=== PATIENT | male | born 1960 | race American Indian/Alaskan Native ===

== ENCOUNTER 2017-01-17 00:50 | Emergency (ER) | payer OTHER ==
[2017-01-17] MEDS ORDERED: TORADOL IM ONE (07:29)
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
[2017-01-17 08:48] VITALS: BP 168/112
== END 2017-01-17 08:51 | disposition home or self-care (01) ==
LOC: ED 00:50
DX: S16.1XXA Strain of muscle, fascia and tendon at neck level, initial encounter (principal); R51 Headache; Y09 Assault by unspecified means; Y93.9 Activity, unspecified; Y99.9 Unspecified external cause status; Y92.481 Parking lot as the place of occurrence of the external cause
CPT/HCPCS: 71020; 96372; 99283; J1885

== ENCOUNTER 2021-09-09 11:07 | Inpatient (IN) | payer SELFPAY ==
--- NOTE | 2021-09-09 12:27 | XRay Report ---
CHEST 2 VIEWS INDICATION: sob. Excessive fatigue, chest pain and nausea COMPARISON: none FINDINGS: Support devices: None. Heart: Within normal limits. Lungs/pleura: No acute air space or interstitial disease. No pleural abnormality or pneumothorax. Additional findings: None. IMPRESSION: No acute findings. Signer Name: Reg Godoy Jr, MD Signed: 09/09/2021 12:23 PM Workstation Name: [id number]
[2021-09-09] MEDS ORDERED: IPRATROPIUM 0.02% NEBU 2.5 ML IH ONE (18:43)
[2021-09-09] MEDS ORDERED: ALBUTEROL 2.5 MG/3 ML NEBU IH ONE ×2 (18:43→20:39)
[2021-09-09] MEDS ORDERED: SODIUM CHLORIDE 0.9% 1000 ML 1,000 ML IV ONE ×2 (18:43→20:44)
[2021-09-09 19:44] LABS: Basophils % (Auto) 0.2 % (0.0-1.8); Eosinophils % (Auto) 0.2 % (0.0-4.3); Lymphocytes % (Auto) 11.6 % (13.4-35.0); Mean Corpuscular HGB Conc 32 % (32-34); Mean Corpuscular Volume 79 fl (84-94); Monocytes # (Auto) 0.6 K/mm3 (0.0-0.8); Monocytes % (Auto) 6.7 % (0.0-7.3); Platelet Count 321 K/mm3 (140-440); Red Blood Count 1.89 M/mm3 (3.65-5.03); Red Cell Distribution Width 14.1 % (13.2-15.2)
[2021-09-09 19:54] LABS: Hematocrit 14.9 % (35.5-45.6); Hemoglobin 4.8 gm/dl (11.8-15.2)
[2021-09-09] MEDS ORDERED: SODIUM CHLORIDE 0.9% 500 ML 500 ML IV ONE (19:54)
[2021-09-09 19:57] LABS: INR 1.2 (0.87-1.13)
[2021-09-09 20:09] LABS: Creatine Kinase MB 21.4 ng/mL (0.0-4.0)
[2021-09-09] MEDS ORDERED: cefTRIAXone/NS 1 GM/50 ML 1 GM/50 ML BAG IV ONE (20:14)
[2021-09-09] MEDS ORDERED: PANTOPRAZOLE 40 MG INJ IV ONE (20:14)
[2021-09-09 20:17] LABS: Albumin 4.2 g/dL (3.9-5); Calcium 6.2 mg/dL (8.4-10.2)
[2021-09-09] MEDS ORDERED: METOCLOPRAMIDE 10 MG/2 ML INJ IV PRN (20:24)
[2021-09-09 20:28] LABS: Chol/HDL Ratio 6.07 %
--- NOTE | 2021-09-09 20:29 | Emergency Department Report ---
ED Shortness of Breath HPI - General Chief Complaint: Dyspnea/Respdistress Stated Complaint: SOB/BLEEDING NOSE/VOMITNG Time Seen by Provider: 09/09/21 18:38 Source: patient Mode of arrival: Wheelchair Limitations: No Limitations - Related Data Previous Rx's Medication Instructions Recorded Last Taken Type Acetaminophen/Codeine [Tylenol #3] 1 tab PO Q6H PRN #7 tab 01/17/17 Unknown Rx Ibuprofen [Motrin] 600 mg PO Q8H PRN #15 tablet 01/17/17 Unknown Rx methOCARBAMOL [Robaxin TAB] 500 mg PO Q6H PRN #15 tablet 01/17/17 Unknown Rx Allergies Allergy/AdvReac Type Severity Reaction Status Date / Time No Known Allergies Allergy Unverified 01/17/17 01:04 ED Review of Systems ROS: Stated complaint: SOB/BLEEDING NOSE/VOMITNG Other details as noted in HPI ED Past Medical Hx - Social History Smoking Status: Never Smoker Substance Use Type: Alcohol - Medications Home Medications: Home Medications Medication Instructions Recorded Confirmed Last Taken Type Acetaminophen/Codeine [Tylenol #3] 1 tab PO Q6H PRN #7 tab 01/17/17 Unknown Rx Ibuprofen [Motrin] 600 mg PO Q8H PRN #15 tablet 01/17/17 Unknown Rx methOCARBAMOL [Robaxin TAB] 500 mg PO Q6H PRN #15 tablet 01/17/17 Unknown Rx ED Physical Exam - General Limitations: No Limitations General appearance: lethargic, in distress, cachectic - Head Head exam: Present: atraumatic, normocephalic - Eye Eye exam: Present: normal appearance - Neck Neck exam: Present: normal inspection - Respiratory Respiratory exam: Present: normal lung sounds bilaterally. Absent: respiratory distress - Cardiovascular Cardiovascular Exam: Present: regular rate, normal rhythm. Absent: systolic murmur, diastolic murmur, rubs, gallop - GI/Abdominal GI/Abdominal exam: Present: soft, normal bowel sounds - Rectal Rectal exam: Present: normal rectal tone, heme (+) stool, tenderness - Extremities Exam Extremities exam: Present: normal inspection - Back Exam Back exam: Present: normal inspection - Neurological Exam Neurological exam: Present: alert - Psychiatric Psychiatric exam: Present: normal affect - Skin Skin exam: Present: dry, normal color. Absent: rash ED Course Vital Signs 09/09/21 09/09/21 09/09/21 11:18 18:59 19:00 Temperature 97.7 F Pulse Rate 88 85 Pulse Rate [ Bilateral Throughout] Respiratory 20 16 Rate Respiratory Rate [Bilateral Throughout] Blood Pressure 168/44 Blood Pressure 171/57 [Right] O2 Sat by Pulse 100 56 L 100 Oximetry 09/09/21 09/09/21 09/09/21 19:15 19:16 19:31 Temperature Pulse Rate Pulse Rate [ 108 H Bilateral Throughout] Respiratory Rate Respiratory 26 H Rate [Bilateral Throughout] Blood Pressure 168/44 156/74 Blood Pressure [Right] O2 Sat by Pulse 98 69 L Oximetry 09/09/21 09/09/21 09/09/21 19:47 20:00 20:16 Temperature 97.8 F Pulse Rate 89 Pulse Rate [ Bilateral Throughout] Respiratory Rate Respiratory Rate [Bilateral Throughout] Blood Pressure 156/74 138/77 138/77 Blood Pressure [Right] O2 Sat by Pulse 82 L 75 L Oximetry 09/09/21 09/09/21 09/09/21 20:27 20:32 20:47 Temperature Pulse Rate Pulse Rate [ Bilateral Throughout] Respiratory 15 Rate Respiratory Rate [Bilateral Throughout] Blood Pressure 161/40 161/40 Blood Pressure [Right] O2 Sat by Pulse 91 44 L 88 Oximetry 09/09/21 09/09/21 09/09/21 21:03 21:20 21:29 Temperature Pulse Rate Pulse Rate [ 104 H Bilateral Throughout] Respiratory Rate Respiratory 24 Rate [Bilateral Throughout] Blood Pressure 161/40 161/40 161/40 Blood Pressure [Right] O2 Sat by Pulse 74 L 61 L 95 Oximetry 09/09/21 09/09/21 21:36 22:01 Temperature 97.7 F Pulse Rate 112 H 92 H Pulse Rate [ Bilateral Throughout] Respiratory 23 Rate Respiratory Rate [Bilateral Throughout] Blood Pressure Blood Pressure [Right] O2 Sat by Pulse 98 Oximetry ED Medical Decision Making - Lab Data Result diagrams: 09/10/21 Unknown 09/10/21 Unknown - EKG Data -: EKG Interpreted by Me EKG shows normal: sinus rhythm Rate: normal - Radiology Data Radiology results: report reviewed, image reviewed - Medical Decision Making work up showed : - Low H.H : heme positive PPI dripa nd bolus given , blood tranfusion GI consult - hyperkaemia : protocl applied , spoke with dr ellison will get dialysis stat - Sepsis L abx cultures aND FLUIDS - Elevated trop: normal ekg , suspect part of rhabdo , fluids given - Epistaxis : resolved with packing Critical Care Time: Yes Critical care time in (mins) excluding proc time.: 120 Critical care attestation.: If time is entered above; I have spent that time in minutes in the direct care of this critically ill patient, excluding procedure time. Critical Care Time: 120 ED Disposition Clinical Impression: Anemia, Sepsis, Elevated troponin, SOB (shortness of breath), Weakness, Melena, Epistaxis, Hyperkalemia, Acute renal failure (ARF), Acidosis Disposition: ADMITTED INPATIENT Is pt being admited?: Yes Condition: Critical
[2021-09-09] MEDS ORDERED: SODIUM CHLORIDE 0.9% 1000 ML 1,000 ML IV SCH (20:30)
[2021-09-09] MEDS ORDERED: CALCIUM CHLORIDE 1,000 MG in SODIUM CHLORIDE 0.9% 100 ML IV ONE (20:39)
[2021-09-09] MEDS ORDERED: INSULIN REGULAR, HUMAN 100 UNITS/1 ML IV ONE (20:44)
[2021-09-09] MEDS ORDERED: SODIUM POLYSTYRENE 15 GM/60 ML ORAL LIQD PO ONE (20:45)
[2021-09-09] MEDS ORDERED: DEXTROSE 50% IN WATER (25GM) 50 ML SYRINGE IV ONE (20:45)
[2021-09-09 21:04] LABS: C-Reactive Protein 1.5 mg/dL (0.00-1.30)
[2021-09-09 21:14] LABS: ABG Base Excess -21.5 mmol/L (-2.0-3.0); ABG HCO3 6.1 mmol/L (20.0-26.0); ABG Methemoglobin 0.5 % (0.0-1.5); ABG Oxygen Saturation 81.1 % (95.0-99.0); ABG PH 7.1 pH Units (7.350-7.450); ABG PO2 60.9 mm Hg (80.0-90.0)
[2021-09-09 21:25] LABS: Hepatitis B Surface Antigen Non-Reactive (Negative); Hepatitis C Virus Antibody Non-Reactive (NonReactive)
--- NOTE | 2021-09-09 21:38 | History and Physical Report ---
History of Present Illness Date of examination: 09/09/21 Date of admission: 09/09/21 20:24 Chief complaint: Shortness of breath Bleeding nose Vomiting History of present illness: 61 years old male with past medical history of chronic kidney disease was brought to the hospital because of progressive shortness of breath as stated with vomiting and bleeding from nose for 1 day. Patient is a very poor historian. In the emergency room patient is found to have hemoglobin of 4.8 and hematocrit 14.9 also patient is found to have potassium of 7.1, bicarb 4, anion gap 54, BUN to 38 and creatinine 48.4, lactic acid 2.80. ABG shows pH 7.100, PCO2 20+0, PO2 60.9, bicarb 6.1 Subsequently Case was discussed with on-call GI doctor as well as nephrology who will do the hemodialysis immediately. We also put the patient on ICU putting on bicarb drip, Protonix drip giving blood transfusion and consult critical care evaluation Past History Past Medical History: hypertension, renal failure Past Surgical History: No surgical history Social history: alcohol abuse Family history: hypertension Medications and Allergies Allergies Allergy/AdvReac Type Severity Reaction Status Date / Time No Known Allergies Allergy Unverified 01/17/17 01:04 Home Medications Medication Instructions Recorded Confirmed Last Taken Type Acetaminophen/Codeine [Tylenol #3] 1 tab PO Q6H PRN #7 tab 01/17/17 Unknown Rx Ibuprofen [Motrin] 600 mg PO Q8H PRN #15 tablet 01/17/17 Unknown Rx methOCARBAMOL [Robaxin TAB] 500 mg PO Q6H PRN #15 tablet 01/17/17 Unknown Rx Active Meds: Active Medications Acetaminophen (Acetaminophen 325 Mg Tab) 650 mg PO Q4H PRN PRN Reason: Pain MILD(1-3)/Fever >100.5/LOCO Pantoprazole Sodium 80 mg/ (Sodium Chloride) 100 mls @ 10 mls/hr IV DIRECT LENY Sodium Chloride (Nacl 0.9% 1000 Ml) 1,000 mls @ 42 mls/hr IV DIRECT LENY Sodium Chloride (Nacl 0.9% 1000 Ml) 1,000 mls @ 999 mls/hr IV BOLUS ONE Stop: 09/09/21 21:44 Last Admin: 09/09/21 21:17 Dose: 999 mls/hr Sodium Bicarbonate 150 meq/ (Dextrose) 1,150 mls @ 125 mls/hr IV DIRECT LENY Pantoprazole Sodium 80 mg/ (Sodium Chloride) 100 mls @ 10 mls/hr IV DIRECT LENY Sodium Bicarbonate 50 meq/ (Sodium Chloride) 1,050 mls @ 100 mls/hr IV DIRECT LENY Metoclopramide HCl (Metoclopramide 10 Mg/2 Ml Inj) 10 mg IV Q6H PRN PRN Reason: Nausea And Vomiting Morphine Sulfate (Morphine 2 Mg/1 Ml Inj) 2 mg IV Q4H PRN PRN Reason: Pain, Moderate (4-6) Ondansetron HCl (Ondansetron 4 Mg/2 Ml Inj) 4 mg IV Q3H PRN PRN Reason: Nausea And Vomiting Sodium Chloride (Sodium Chloride 0.9% 10 Ml Flush Syringe) 10 ml IV BID LENY Sodium Chloride (Sodium Chloride 0.9% 10 Ml Flush Syringe) 10 ml IV PRN PRN PRN Reason: LINE FLUSH Review of Systems All systems: negative Constitutional: weakness, other (Epistaxis) Cardiovascular: shortness of breath, dyspnea on exertion Respiratory: shortness of breath, dyspnea on exertion Gastrointestinal: nausea, vomiting Exam - Constitutional Vitals: Temp Pulse Resp BP Pulse Ox 97.8 F 104 H 24 138/77 91 09/09/21 20:16 09/09/21 21:29 09/09/21 21:29 09/09/21 20:00 09/09/21 20:27 General appearance: Present: no acute distress, well-nourished - EENT Eyes: Present: PERRL ENT: hearing intact, clear oral mucosa - Neck Neck: Present: supple, normal ROM - Respiratory Respiratory effort: normal Respiratory: bilateral: diminished - Cardiovascular Heart Sounds: Present: S1 & S2. Absent: rub, click - Extremities Extremities: pulses symmetrical, No edema Peripheral Pulses: within normal limits - Abdominal General gastrointestinal: Present: soft, non-tender, non-distended, normal bowel sounds Male genitourinary: Present: normal - Integumentary Integumentary: Present: clear, warm, dry - Musculoskeletal Musculoskeletal: gait normal, strength equal bilaterally - Psychiatric Psychiatric: appropriate mood/affect, intact judgment & insight - Neurologic Neurologic: CNII-XII intact, moves all extremities HEART Score - HEART Score Troponin: Troponin T 0.175 ng/mL (0.00-0.029) H* 09/09/21 18:53 Results - Labs CBC & Chem 7: 09/09/21 18:53 05 18:53 Labs: Laboratory Last Values WBC 9.0 K/mm3 (4.5-11.0) 09/09/21 18:53 RBC 1.89 M/mm3 (3.65-5.03) L 09/09/21 18:53 Hgb 4.8 gm/dl (11.8-15.2) L* 09/09/21 18:53 Hct 14.9 % (35.5-45.6) L* 09/09/21 18:53 MCV 79 fl (84-94) L 09/09/21 18:53 MCH 25 pg (28-32) L 09/09/21 18:53 MCHC 32 % (32-34) 09/09/21 18:53 RDW 14.1 % (13.2-15.2) 09/09/21 18:53 Plt Count 321 K/mm3 (140-440) 09/09/21 18:53 Lymph % (Auto) 11.6 % (13.4-35.0) L 09/09/21 18:53 Collin % (Auto) 6.7 % (0.0-7.3) 09/09/21 18:53 Eos % (Auto) 0.2 % (0.0-4.3) 09/09/21 18:53 Baso % (Auto) 0.2 % (0.0-1.8) 09/09/21 18:53 Lymph # (Auto) 1.0 K/mm3 (1.2-5.4) L 09/09/21 18:53 Collin # (Auto) 0.6 K/mm3 (0.0-0.8) 09/09/21 18:53 Eos # (Auto) 0.0 K/mm3 (0.0-0.4) 09/09/21 18:53 Baso # (Auto) 0.0 K/mm3 (0.0-0.1) 09/09/21 18:53 Seg Neutrophils % 81.3 % (40.0-70.0) H 09/09/21 18:53 Seg Neutrophils # 7.3 K/mm3 (1.8-7.7) 09/09/21 18:53 PT 16.6 Sec. (12.2-14.9) H 09/09/21 18:53 INR 1.20 (0.87-1.13) H 09/09/21 18:53 D-Dimer 2203.38 ng/mlDDU (0-234) H 09/09/21 18:53 ABG pH 7.100 pH Units (7.350-7.450) L* 09/09/21 21:00 ABG pCO2 20.0 mm Hg 09/09/21 21:00 ABG pO2 60.9 mm Hg (80.0-90.0) L 09/09/21 21:00 ABG HCO3 6.1 mmol/L (20.0-26.0) L 09/09/21 21:00 ABG O2 Saturation 81.1 % (95.0-99.0) L 09/09/21 21:00 ABG O2 Content 4.8 (0.0-44) 09/09/21 21:00 ABG Base Excess -21.5 mmol/L (-2.0-3.0) L 09/09/21 21:00 ABG Hemoglobin 5.0 gm/dl (14.0-18.0) L 09/09/21 21:00 ABG Carboxyhemoglobin 1.3 % (0.0-5.0) 09/09/21 21:00 ABG Methemoglobin 0.5 % (0.0-1.5) 09/09/21 21:00 Oxyhemoglobin 79.7 % (95.0-99.0) L 09/09/21 21:00 FiO2 28 % 09/09/21 21:00 Sodium 134 mmol/L (137-145) L 09/09/21 18:53 Potassium 7.1 mmol/L (3.6-5.0) H* 09/09/21 18:53 Chloride 83.4 mmol/L (98-107) L 09/09/21 18:53 Carbon Dioxide 4 mmol/L (22-30) L* 09/09/21 18:53 Anion Gap 54 mmol/L 09/09/21 18:53 BUN 238 mg/dL (9-20) H 09/09/21 18:53 Creatinine 48.4 mg/dL (0.8-1.3) H 09/09/21 18:53 Estimated GFR 1 ml/min 09/09/21 18:53 BUN/Creatinine Ratio 5 % 09/09/21 18:53 Glucose 130 mg/dL (75-100) H 09/09/21 18:53 Lactic Acid 2.80 mmol/L (0.7-2.0) H* 09/09/21 18:53 Calcium 6.2 mg/dL (8.4-10.2) L 09/09/21 18:53 Magnesium 2.90 mg/dL (1.7-2.3) H 09/09/21 18:53 Total Bilirubin 0.30 mg/dL (0.1-1.2) 09/09/21 18:53 AST 17 units/L (5-40) 09/09/21 18:53 ALT 19 units/L (7-56) 09/09/21 18:53 Alkaline Phosphatase 57 units/L (35-129) 09/09/21 18:53 Ammonia 39.0 umol/L (25-60) 09/09/21 19:02 Total Creatine Kinase 1690 units/L (55-170) H 09/09/21 18:53 CK-MB (CK-2) 21.4 ng/mL (0.0-4.0) H 09/09/21 18:53 CK-MB (CK-2) Rel Index 1.2 (0-4) 09/09/21 18:53 Troponin T 0.175 ng/mL (0.00-0.029) H* 09/09/21 18:53 C-Reactive Protein 1.50 mg/dL (0.00-1.30) H 09/09/21 18:53 NT-Pro-B Natriuret Pep 6011 pg/mL (0-900) H 09/09/21 18:53 Total Protein 7.4 g/dL (6.3-8.2) 09/09/21 18:53 Albumin 4.2 g/dL (3.9-5) 09/09/21 18:53 Albumin/Globulin Ratio 1.3 % 09/09/21 18:53 Triglycerides 177 mg/dL (2-149) H 09/09/21 18:53 Cholesterol 170 mg/dL (50-199) 09/09/21 18:53 LDL Cholesterol Direct 107 mg/dL (50-130) 09/09/21 18:53 HDL Cholesterol 28 mg/dL (40-59) L 09/09/21 18:53 Cholesterol/HDL Ratio 6.07 % 09/09/21 18:53 Lipase 1198 units/L (13-60) H 09/09/21 18:53 Hep Bs Antigen Non-reactive (Negative) 09/09/21 20:55 Hep B Core IgM Ab Non-reactive (NonReactive) 09/09/21 20:55 Hepatitis C Antibody Non-reactive (NonReactive) 09/09/21 20:55 Blood Type O POSITIVE 09/09/21 20:10 Antibody Screen Negative 09/09/21 20:10 Crossmatch See Detail 09/09/21 20:10 - Imaging and Cardiology Chest x-ray: report reviewed Assessment and Plan VTE prophylaxis?: Mechanical Plan of care discussed with patient/family: Yes - Patient Problems (1) Acute renal failure (ARF) Current Visit: Yes Status: Acute Plan to address problem: Admit the patient to the ICU. Avoid nephrotoxic drug. Normal Saline at the Rate of 100 Cc/H. Renally Dose Medication. consult Nephrology for Emergent Dialysis. Recheck CBC BMP in the Morning . We Also Consult Critical Care Evaluation (2) Acidosis Current Visit: Yes Status: Acute Plan to address problem: Put the patient on bicarb drip. Reconsult nephrology for emergent dialysis. Recheck BMP in the morning (3) Anemia Current Visit: Yes Status: Acute Plan to address problem: We are going to transfuse 3-4 unit of packed red blood cell. Protonix drip. GI evaluation. Recheck CBC in the morning (4) Elevated troponin Current Visit: Yes Status: Acute Plan to address problem: Most likely from demand ischemia. We do the serial cardiac enzyme. Echocardiogram. Cardiology evaluation. Will not put the patient on aspirin because of GI bleeding (5) Epistaxis Current Visit: Yes Status: Acute (6) Hyperkalemia Current Visit: Yes Status: Acute Plan to address problem: Patient is on bicarb drip. Patient got 10 units of IV insulin. D50 1 ampoule. Kayexalate. We consulted nephrology for emergent dialysis. Recheck BMP in the morning (7) Melena Current Visit: Yes Status: Acute Plan to address problem: Protonix drip. GI evaluation. Recheck CBC in the morning (8) SOB (shortness of breath) Current Visit: Yes Status: Acute Plan to address problem: Oxygen via nasal cannula 3 L/min. DuoNeb by nebulizer every 4 hours. Albuterol via nebulizer every 4 hours as needed. Reconsult critical care evaluation (9) Sepsis Current Visit: Yes Status: Acute Plan to address problem: Rocephin 2 g IV daily. We do the serial lactic acid. Blood cultures sputum culture. Recheck CBC/lactic acid in the morning (10) Weakness Current Visit: Yes Status: Acute Plan to address problem: Will consult physical therapy evaluation. We continue the home medication (11) DVT prophylaxis Current Visit: Yes Status: Acute Plan to address problem: SCD for DVT prophylaxis. Protonix drip for GI prophylaxis. Patient is a full code
[2021-09-09] MEDS ORDERED: PANTOPRAZOLE 80 MG in SODIUM CHLORIDE 0.9% 100 ML IV SCH (22:00)
[2021-09-09] MEDS ORDERED: SODIUM BICARBONATE 50 MEQ in SODIUM CHLORIDE 0.9% 1000 ML 1,000 ML IV SCH (22:00)
[2021-09-09] MEDS: SODIUM BICARBONATE 150 MEQ in DEXTROSE 5% IN WATER 1,000 ML IV SCH (22:04)
[2021-09-09] MEDS ORDERED: fentaNYL 100 MCG/2 ML INJ IV ONE ×2 (22:14→23:06)
[2021-09-09] MEDS ORDERED: MIDAZOLAM 2 MG/2 ML INJ IV ONE (22:14)
--- NOTE | 2021-09-09 23:14 | Procedure Note ---
Date of procedure: 09/09/21 Pre-op diagnosis: Uremia, Acute vs Chronic Renal Failure Post-op diagnosis: same Procedure: Right IJ Vascath placement: After obtaining informed consent, patient was placed in supine position to find the right IJ. Patient is tachycardic and volume deplete as the right IJ was very collapsible to light touch. Once patient was adequately sedated with versed and Fentanyl right IJ was accessed using the seldinger technique and ultrasound guidance. Catheter placed and three ports flushed and abida fluid with ease. CXR ordered and reviewed and right IJ vascath in place, await official read. Anesthesia: local Surgeon: CLARITZA ROSALES Estimated blood loss: none Pathology: none Condition: critical Disposition: ICU
--- NOTE | 2021-09-09 23:18 | Consultation ---
History of Present Illness - Reason for Consult Consult date: 09/09/21 Acute respiratory failure and Renal Failure Requesting physician: SERGEY MURILLO - History of Present Illness 61 y/o male admitted for renal failure, anemia, and acute respiratory failure. Evaluated in the ED and after ED spoke to renal, they requested vascath placement for Urgent dialysis. Patient came up from ED without león, one liter of fluid was administered and a second bag was hanging. Per ED, called lab and they state that it was not hemolyzed and the labs were not repeated. I came in to place vascath at their request. On US visualization of the IJ, extremely collapsible with significant respiratory variation. Remainder of the review is negative. Per patient he has no medical problems Past History Past Medical History: hypertension, renal failure Past Surgical History: No surgical history Social history: alcohol abuse Family history: hypertension Medications and Allergies Allergies Allergy/AdvReac Type Severity Reaction Status Date / Time No Known Allergies Allergy Unverified 01/17/17 01:04 Home Medications Medication Instructions Recorded Confirmed Last Taken Type Acetaminophen/Codeine [Tylenol #3] 1 tab PO Q6H PRN #7 tab 01/17/17 Unknown Rx Ibuprofen [Motrin] 600 mg PO Q8H PRN #15 tablet 01/17/17 Unknown Rx methOCARBAMOL [Robaxin TAB] 500 mg PO Q6H PRN #15 tablet 01/17/17 Unknown Rx Active Meds: Active Medications Acetaminophen (Acetaminophen 325 Mg Tab) 650 mg PO Q4H PRN PRN Reason: Pain MILD(1-3)/Fever >100.5/LOCO Pantoprazole Sodium 80 mg/ (Sodium Chloride) 100 mls @ 10 mls/hr IV DIRECT LENY Sodium Chloride (Nacl 0.9% 1000 Ml) 1,000 mls @ 42 mls/hr IV DIRECT LENY Sodium Bicarbonate 150 meq/ (Dextrose) 1,150 mls @ 125 mls/hr IV DIRECT LENY Metoclopramide HCl (Metoclopramide 10 Mg/2 Ml Inj) 10 mg IV Q6H PRN PRN Reason: Nausea And Vomiting Midazolam HCl (Midazolam 2 Mg/2 Ml Inj) 1 mg IV PREOP NR Stop: 09/10/21 05:00 Morphine Sulfate (Morphine 2 Mg/1 Ml Inj) 2 mg IV Q4H PRN PRN Reason: Pain, Moderate (4-6) Ondansetron HCl (Ondansetron 4 Mg/2 Ml Inj) 4 mg IV Q3H PRN PRN Reason: Nausea And Vomiting Sodium Chloride (Sodium Chloride 0.9% 10 Ml Flush Syringe) 10 ml IV BID LENY Sodium Chloride (Sodium Chloride 0.9% 10 Ml Flush Syringe) 10 ml IV PRN PRN PRN Reason: LINE FLUSH Review of Systems All systems: negative Exam - Constitutional Vitals: Temp Pulse Resp BP Pulse Ox 97.7 F 112 H 23 161/40 98 09/09/21 21:36 09/09/21 21:36 09/09/21 21:36 09/09/21 21:20 09/09/21 21:36 General appearance: Present: mild distress, cachectic, disheveled - EENT Eyes: Present: PERRL, EOM intact ENT: hearing intact - Neck Neck: Present: supple, normal ROM - Respiratory Respiratory effort: normal Respiratory: bilateral: CTA - Cardiovascular Rhythm: other (sinus tach) Heart Sounds: Present: S1 & S2 - Extremities Extremities: no ischemia, pulses intact, pulses symmetrical - Abdominal General gastrointestinal: Present: soft, non-tender Results - Labs CBC & Chem 7: 09/09/21 18:53 09/09/21 18:53 Labs: Abnormal lab results 09/09/21 09/09/21 09/09/21 Range/Units 18:53 18:53 18:53 RBC 1.89 L (3.65-5.03) M/mm3 Hgb 4.8 L* (11.8-15.2) gm/dl Hct 14.9 L* (35.5-45.6) % MCV 79 L (84-94) fl MCH 25 L (28-32) pg Lymph % (Auto) 11.6 L (13.4-35.0) % Lymph # (Auto) 1.0 L (1.2-5.4) K/mm3 Seg Neutrophils % 81.3 H (40.0-70.0) % PT 16.6 H (12.2-14.9) Sec. INR 1.20 H (0.87-1.13) D-Dimer 2203.38 H (0-234) ng/mlDDU ABG pH (7.350-7.450) pH Units ABG pO2 (80.0-90.0) mm Hg ABG HCO3 (20.0-26.0) mmol/L ABG O2 Saturation (95.0-99.0) % ABG Base Excess (-2.0-3.0) mmol/L ABG Hemoglobin (14.0-18.0) gm/dl Oxyhemoglobin (95.0-99.0) % Sodium 134 L (137-145) mmol/L Potassium 7.1 H* (3.6-5.0) mmol/L Chloride 83.4 L (98-107) mmol/L Carbon Dioxide 4 L* (22-30) mmol/L BUN 238 H (9-20) mg/dL Creatinine 48.4 H (0.8-1.3) mg/dL Glucose 130 H (75-100) mg/dL Lactic Acid (0.7-2.0) mmol/L Calcium 6.2 L (8.4-10.2) mg/dL Magnesium 2.90 H (1.7-2.3) mg/dL Total Creatine Kinase 1690 H (55-170) units/L CK-MB (CK-2) 21.4 H (0.0-4.0) ng/mL Troponin T 0.175 H* (0.00-0.029) ng/mL C-Reactive Protein 1.50 H (0.00-1.30) mg/dL NT-Pro-B Natriuret Pep 6011 H (0-900) pg/mL Triglycerides 177 H (2-149) mg/dL HDL Cholesterol 28 L (40-59) mg/dL Lipase 1198 H (13-60) units/L Crossmatch 09/09/21 09/09/21 09/09/21 Range/Units 18:53 20:10 20:49 RBC (3.65-5.03) M/mm3 Hgb (11.8-15.2) gm/dl Hct (35.5-45.6) % MCV (84-94) fl MCH (28-32) pg Lymph % (Auto) (13.4-35.0) % Lymph # (Auto) (1.2-5.4) K/mm3 Seg Neutrophils % (40.0-70.0) % PT (12.2-14.9) Sec. INR (0.87-1.13) D-Dimer (0-234) ng/mlDDU ABG pH (7.350-7.450) pH Units ABG pO2 (80.0-90.0) mm Hg ABG HCO3 (20.0-26.0) mmol/L ABG O2 Saturation (95.0-99.0) % ABG Base Excess (-2.0-3.0) mmol/L ABG Hemoglobin (14.0-18.0) gm/dl Oxyhemoglobin (95.0-99.0) % Sodium (137-145) mmol/L Potassium (3.6-5.0) mmol/L Chloride (98-107) mmol/L Carbon Dioxide (22-30) mmol/L BUN (9-20) mg/dL Creatinine (0.8-1.3) mg/dL Glucose (75-100) mg/dL Lactic Acid 2.80 H* 2.10 H* (0.7-2.0) mmol/L Calcium (8.4-10.2) mg/dL Magnesium (1.7-2.3) mg/dL Total Creatine Kinase (55-170) units/L CK-MB (CK-2) (0.0-4.0) ng/mL Troponin T (0.00-0.029) ng/mL C-Reactive Protein (0.00-1.30) mg/dL NT-Pro-B Natriuret Pep (0-900) pg/mL Triglycerides (2-149) mg/dL HDL Cholesterol (40-59) mg/dL Lipase (13-60) units/L Crossmatch See Detail 09/09/21 Range/Units 21:00 RBC (3.65-5.03) M/mm3 Hgb (11.8-15.2) gm/dl Hct (35.5-45.6) % MCV (84-94) fl MCH (28-32) pg Lymph % (Auto) (13.4-35.0) % Lymph # (Auto) (1.2-5.4) K/mm3 Seg Neutrophils % (40.0-70.0) % PT (12.2-14.9) Sec. INR (0.87-1.13) D-Dimer (0-234) ng/mlDDU ABG pH 7.100 L* (7.350-7.450) pH Units ABG pO2 60.9 L (80.0-90.0) mm Hg ABG HCO3 6.1 L (20.0-26.0) mmol/L ABG O2 Saturation 81.1 L (95.0-99.0) % ABG Base Excess -21.5 L (-2.0-3.0) mmol/L ABG Hemoglobin 5.0 L (14.0-18.0) gm/dl Oxyhemoglobin 79.7 L (95.0-99.0) % Sodium (137-145) mmol/L Potassium (3.6-5.0) mmol/L Chloride (98-107) mmol/L Carbon Dioxide (22-30) mmol/L BUN (9-20) mg/dL Creatinine (0.8-1.3) mg/dL Glucose (75-100) mg/dL Lactic Acid (0.7-2.0) mmol/L Calcium (8.4-10.2) mg/dL Magnesium (1.7-2.3) mg/dL Total Creatine Kinase (55-170) units/L CK-MB (CK-2) (0.0-4.0) ng/mL Troponin T (0.00-0.029) ng/mL C-Reactive Protein (0.00-1.30) mg/dL NT-Pro-B Natriuret Pep (0-900) pg/mL Triglycerides (2-149) mg/dL HDL Cholesterol (40-59) mg/dL Lipase (13-60) units/L Crossmatch - Imaging and Cardiology Chest x-ray: report reviewed Assessment and Plan 61 y/o male with acute respiratory failure, acute renal failure, anemia, nose bleed and hypertension. 1. Discussed case with renal. Clinically patient appears to be very dry. No león placed in the ED and when we tried to place here in unit, unable to get urine despite bladder scan showing almost of liter of fluid. Will defer to renal about this but orders for HD placed. Bp is stable. Patient is alert and oriented. He was like this prior to the placing HD catheter but is somnolent now after medication to help relax him to place the line. HD nurses on way to do HD. Will also defer to renal on if more volume is needed and if they want to involve urology. We will order a stat CT of the Abdomen Pelvis to look hydronephrosis and possible evidence of obstruction. 2. Anemia-related to chronic disease? exact etiology unknown. MCV is low at 79. Per ED started on PPI drip. Suggest q6 hour H/H's. Transfuse with HD if done tonight. Goal HgB at this time would be 7. needs iron studies. 3. Pulm- CXR is clear but patient has hypoxemia. Could be related to nose bleed and congestion vs volume overload but as stated CXR is clear. continue supplemental o2 and wean as tolerated 4. Overall prognosis is guarded to poor. Suspect this is not acute renal injury and likely something that has been brewing for some time. Hopeful patient will tolerate all therapies. CCT 31 minutes.
[2021-09-09] MEDS ORDERED: MIDAZOLAM 2 MG/2 ML INJ IV NR (23:45)
--- NOTE | 2021-09-09 23:59 | XRay Report ---
CHEST 1 VIEW INDICATION / CLINICAL INFORMATION: central line place. COMPARISON: Chest x-ray 09/09/2021 FINDINGS: SUPPORT DEVICES: Interval placement of right-sided central venous catheter tip near the right atrium near the junction of IVC. HEART / MEDIASTINUM: Stable interval appearance of the cardiomediastinal silhouette. LUNGS / PLEURA: No significant pulmonary or pleural abnormality. BONES: No significant osseous abnormality. ADDITIONAL FINDINGS: No significant additional findings. IMPRESSION: 1. Interval placement right IJ central venous catheter tip near the right atrium/inferior cava juncti on. Retraction by 5 cm recommended for optimal positioning. Note is made that the proximal catheter m ay be kinked near the skin surface. 2. No complication from line placement. No active cardiopulmonary disease. Signer Name: Mark Christianson II, MD Signed: 09/09/2021 11:58 PM Workstation Name: [id number]
[2021-09-10 00:15] LABS: Calcium 4.7 mg/dL (8.4-10.2)
--- NOTE | 2021-09-10 00:20 | Progress Note ---
Subjective Date of service: 09/10/21 Interval history: Consulted for severe renal failure, hyperkalemia, acidosis. R&B of HD d/w patient who agrees to and consents for dialysis. Medical Management for hyperkalemia ordered earlier for patient. Bicarb drip ordered. Blood transfusion ordered. ICU team putting in [facility]. STAT hd ordered. Objective - Vital Signs Vital signs: Vital Signs - 12hr 09/09/21 09/09/21 09/09/21 18:59 19:00 19:15 Temperature Pulse Rate 85 Pulse Rate [ 108 H Bilateral Throughout] Respiratory 16 Rate Respiratory 26 H Rate [Bilateral Throughout] Blood Pressure 168/44 O2 Sat by Pulse 56 L 100 Oximetry 09/09/21 09/09/21 09/09/21 19:16 19:31 19:47 Temperature Pulse Rate Pulse Rate [ Bilateral Throughout] Respiratory Rate Respiratory Rate [Bilateral Throughout] Blood Pressure 168/44 156/74 156/74 O2 Sat by Pulse 98 69 L 82 L Oximetry 09/09/21 09/09/21 09/09/21 20:00 20:16 20:27 Temperature 97.8 F Pulse Rate 89 Pulse Rate [ Bilateral Throughout] Respiratory 15 Rate Respiratory Rate [Bilateral Throughout] Blood Pressure 138/77 138/77 O2 Sat by Pulse 75 L 91 Oximetry 09/09/21 09/09/21 09/09/21 20:32 20:47 21:03 Temperature Pulse Rate Pulse Rate [ Bilateral Throughout] Respiratory Rate Respiratory Rate [Bilateral Throughout] Blood Pressure 161/40 161/40 161/40 O2 Sat by Pulse 44 L 88 74 L Oximetry 09/09/21 09/09/21 09/09/21 21:20 21:29 21:36 Temperature 97.7 F Pulse Rate 112 H Pulse Rate [ 104 H Bilateral Throughout] Respiratory 23 Rate Respiratory 24 Rate [Bilateral Throughout] Blood Pressure 161/40 O2 Sat by Pulse 61 L 98 Oximetry - Lab 09/09/21 18:53 09/09/21 23:25 Most recent lab results ABG pH 7.100 pH Units (7.350-7.450) L* 09/09/21 21:00 ABG pCO2 20.0 mm Hg 09/09/21 21:00 ABG pO2 60.9 mm Hg (80.0-90.0) L 09/09/21 21:00 ABG HCO3 6.1 mmol/L (20.0-26.0) L 09/09/21 21:00 ABG O2 Saturation 81.1 % (95.0-99.0) L 09/09/21 21:00 Calcium 4.7 mg/dL (8.4-10.2) L* D 09/09/21 23:25 Magnesium 2.90 mg/dL (1.7-2.3) H 09/09/21 18:53 Medications & Allergies - Medications Allergies/Adverse Reactions: Allergies No Known Allergies Allergy (Unverified 01/17/17 01:04) Home Medications: Home Medications Medication Instructions Recorded Confirmed Last Taken Type Acetaminophen/Codeine [Tylenol #3] 1 tab PO Q6H PRN #7 tab 01/17/17 Unknown Rx Ibuprofen [Motrin] 600 mg PO Q8H PRN #15 tablet 01/17/17 Unknown Rx methOCARBAMOL [Robaxin TAB] 500 mg PO Q6H PRN #15 tablet 01/17/17 Unknown Rx Active Medications: Generic Name Dose Route Start Last Admin Trade Name Freq PRN Reason Stop Dose Admin Acetaminophen 650 mg 09/09/21 20:24 Acetaminophen 325 Mg Tab PO Q4H PRN Pain MILD(1-3)/Fever >100.5/LOCO Pantoprazole Sodium 80 mg/ 100 mls @ 10 mls/hr 09/09/21 21:00 Sodium Chloride IV DIRECT LENY 8 MG/HR Sodium Chloride 1,000 mls @ 42 mls/hr 09/09/21 20:30 Nacl 0.9% 1000 Ml IV DIRECT LENY Sodium Bicarbonate 150 meq/ 1,150 mls @ 125 mls/hr 09/09/21 21:00 Dextrose IV DIRECT LENY Metoclopramide HCl 10 mg 09/09/21 20:24 Metoclopramide 10 Mg/2 Ml Inj IV Q6H PRN Nausea And Vomiting Midazolam HCl 1 mg 09/09/21 23:45 Midazolam 2 Mg/2 Ml Inj IV 09/10/21 05:00 PREOP NR Morphine Sulfate 2 mg 09/09/21 20:24 Morphine 2 Mg/1 Ml Inj IV Q4H PRN Pain, Moderate (4-6) Ondansetron HCl 4 mg 09/09/21 20:24 Ondansetron 4 Mg/2 Ml Inj IV Q3H PRN Nausea And Vomiting Sodium Chloride 10 ml 09/09/21 22:00 Sodium Chloride 0.9% 10 Ml Flush Syringe IV BID LENY Sodium Chloride 10 ml 09/09/21 20:24 Sodium Chloride 0.9% 10 Ml Flush Syringe IV PRN PRN LINE FLUSH
[2021-09-10] MEDS ORDERED: SODIUM BICARB 8.4% 50 MEQ/50 ML SYRINGE IV ONE (00:21)
[2021-09-10] MEDS ORDERED: CALCIUM GLUCONATE 2,000 MG in SODIUM CHLORIDE 0.9% 100 ML IV ONE (00:22)
[2021-09-10] MEDS ORDERED: SODIUM CHLORIDE 0.9% 500 ML 0 ML ONE (00:23)
--- NOTE | 2021-09-10 00:32 | Cat Scan Report ---
CT ABDOMEN AND PELVIS WITHOUT CONTRAST INDICATION / CLINICAL INFORMATION: Urinary obstruction. TECHNIQUE: Axial CT images were obtained through the abdomen and pelvis without IV contrast. All CT scans at this location are performed using CT dose reduction for ALARA by means of automated exposure control. COMPARISON: None available. FINDINGS: LOWER CHEST: Fluid-filled minimally dilated segmental and subsegmental bronchi of the left lower lobe . Additionally smoothly marginated pleural-based nodule right lower lobe measuring 12 mm. LIVER: Small foci of hypoattenuation too small to further characterize favored to reflect small hepat ic cysts. Liver otherwise unremarkable. GALLBLADDER: No significant abnormality. BILE DUCTS: No significant abnormality. SPLEEN: No significant abnormality. PANCREAS: No significant abnormality. ADRENALS: No significant abnormality. KIDNEYS/URETERS: Severe bilateral hydronephrosis with additional moderate to severe bilateral hydrour eter. No stones identified. Ureters are well-visualized to the level of the vesicular junction. STOMACH / DUODENUM / SMALL BOWEL: The stomach, duodenum, and small bowel demonstrate no significant a bnormality. No specific abnormality of the mesentery demonstrated. COLON: No significant abnormality. APPENDIX: No significant abnormality. PERITONEUM: No free air or free fluid are present within the abdomen or pelvis. LYMPH NODES: No significant adenopathy. AORTA / ARTERIES: Mild atherosclerotic calcification without acute abnormality. IVC / VEINS: No significant abnormality. URINARY BLADDER: No significant abnormality. REPRODUCTIVE ORGANS: The prostate is moderately enlarged and has associated indentation of the bladde r base centrally. ADDITIONAL ABDOMINAL/PELVIC FINDINGS: None. SKELETAL SYSTEM: No significant abnormality. IMPRESSION: 1. Prostatomegaly with bladder base indentation. Correlation with PSA recommended as neoplasm are not excluded. 2. Severe bilateral hydronephrosis and hydroureter. The ureters are well-visualized to the level of t he vesicular junction without obvious obstructing lesion or bladder wall abnormality. These findings could reflect sequelae of reflux. 3. The appearance of the left lower lung suggests bronchitis. Correlation recommended. 4. Single incidental pulmonary nodule(s) in the right lower lobe measuring 12 mm with perifissural/junior bpleural characteristics. Recommendation according to Fleischner Society 2017 Guidelines: Low Risk or High Risk Patient: Consider CT at 3 months, PET/CT, or tissue sampling. Signer Name: Mark Christianson II, MD Signed: 09/10/2021 12:27 AM Workstation Name: [id number]
--- NOTE | 2021-09-10 00:46 | Event Note ---
Date: 09/10/21 CT of abdomen pelvis is back. Enlarged prostate with bilateral hydronephrosis and bilateral dilated ureters. Will alert nephrology and defer to them for further treatment options. Most likely needs urological evaluation.
--- NOTE | 2021-09-10 00:59 | Progress Note ---
Assessment and Plan 61 y/o male with acute respiratory failure, acute renal failure, anemia, nose bleed and hypertension. 09/10/21: Wean FiO2 to off for sats >88%. For nose bleed pack nare with gauze soaked in Afrin and leave it there for at least the next 12 hours. Follow up any new renal recs. Follow up CBC. Given CT results, likely needs urologic ria luation and some form of intervention to relieve obstruction vs IR for nephrostomy tubes, will defer to renal. They plan to continue with HD. Guarded prognosis, especially given age and prostate findings on CT. 1. Discussed case with renal. Clinically patient appears to be very dry. No león placed in the ED and when we tried to place here in unit, unable to get urine despite bladder scan showing almost of liter of fluid. Will defer to renal about this but orders for HD placed. Bp is stable. Patient is alert and oriented. He was like this prior to the placing HD catheter but is somnolent now after medication to help relax him to place the line. HD nurses on way to do HD. Will also defer to renal on if more volume is needed and if they want to involve urology. We will order a stat CT of the Abdomen Pelvis to look for hydronephrosis and possible evidence of obstruction. 2. Anemia-related to chronic disease? exact etiology unknown. MCV is low at 79. Per ED started on PPI drip. Suggest q6 hour H/H's. Transfuse with HD if done tonight. Goal HgB at this time would be 7. needs iron studies. 3. Pulm- CXR is clear but patient has hypoxemia. Could be related to nose b leed and congestion vs volume overload but as stated CXR is clear. continue supplemental o2 and wean as tolerated 4. Overall prognosis is guarded to poor. Suspect this is not acute renal injury and likely something that has been brewing for some time. Hopeful patient will tolerate all therapies. CCT 31 minutes. Subjective Date of service: 09/10/21 Objective - Constitutional Vitals: Vital Signs - 12hr 09/09/21 09/09/21 09/09/21 18:59 19:00 19:15 Temperature Pulse Rate 85 Pulse Rate [ 108 H Bilateral Throughout] Respiratory 16 Rate Respiratory 26 H Rate [Bilateral Throughout] Blood Pressure 168/44 O2 Sat by Pulse 56 L 100 Oximetry 09/09/21 09/09/21 09/09/21 19:16 19:31 19:47 Temperature Pulse Rate Pulse Rate [ Bilateral Throughout] Respiratory Rate Respiratory Rate [Bilateral Throughout] Blood Pressure 168/44 156/74 156/74 O2 Sat by Pulse 98 69 L 82 L Oximetry 09/09/21 09/09/21 09/09/21 20:00 20:16 20:27 Temperature 97.8 F Pulse Rate 89 Pulse Rate [ Bilateral Throughout] Respiratory 15 Rate Respiratory Rate [Bilateral Throughout] Blood Pressure 138/77 138/77 O2 Sat by Pulse 75 L 91 Oximetry 09/09/21 09/09/21 09/09/21 20:32 20:47 21:03 Temperature Pulse Rate Pulse Rate [ Bilateral Throughout] Respiratory Rate Respiratory Rate [Bilateral Throughout] Blood Pressure 161/40 161/40 161/40 O2 Sat by Pulse 44 L 88 74 L Oximetry 09/09/21 09/09/21 09/09/21 21:20 21:29 21:36 Temperature 97.7 F Pulse Rate 112 H Pulse Rate [ 104 H Bilateral Throughout] Respiratory 23 Rate Respiratory 24 Rate [Bilateral Throughout] Blood Pressure 161/40 161/40 O2 Sat by Pulse 61 L 95 98 Oximetry 09/09/21 09/09/21 09/10/21 22:01 23:00 00:10 Temperature Pulse Rate 92 H 129 H 86 Pulse Rate [ Bilateral Throughout] Respiratory 24 13 Rate Respiratory Rate [Bilateral Throughout] Blood Pressure 140/76 161/83 O2 Sat by Pulse 100 Oximetry 09/10/21 00:35 Temperature 96.6 F L Pulse Rate 87 Pulse Rate [ Bilateral Throughout] Respiratory 13 Rate Respiratory Rate [Bilateral Throughout] Blood Pressure 164/80 O2 Sat by Pulse Oximetry - Labs CBC & Chem 7: 09/09/21 18:53 09/09/21 23:25 Labs: Abnormal lab results 09/09/21 09/09/21 09/09/21 Range/Units 18:53 18:53 18:53 RBC 1.89 L (3.65-5.03) M/mm3 Hgb 4.8 L* (11.8-15.2) gm/dl Hct 14.9 L* (35.5-45.6) % MCV 79 L (84-94) fl MCH 25 L (28-32) pg Lymph % (Auto) 11.6 L (13.4-35.0) % Lymph # (Auto) 1.0 L (1.2-5.4) K/mm3 Seg Neutrophils % 81.3 H (40.0-70.0) % PT 16.6 H (12.2-14.9) Sec. INR 1.20 H (0.87-1.13) D-Dimer 2203.38 H (0-234) ng/mlDDU ABG pH (7.350-7.450) pH Units ABG pO2 (80.0-90.0) mm Hg ABG HCO3 (20.0-26.0) mmol/L ABG O2 Saturation (95.0-99.0) % ABG Base Excess (-2.0-3.0) mmol/L ABG Hemoglobin (14.0-18.0) gm/dl Oxyhemoglobin (95.0-99.0) % Sodium 134 L (137-145) mmol/L Potassium 7.1 H* (3.6-5.0) mmol/L Chloride 83.4 L (98-107) mmol/L Carbon Dioxide 4 L* (22-30) mmol/L BUN 238 H (9-20) mg/dL Creatinine 48.4 H (0.8-1.3) mg/dL Glucose 130 H (75-100) mg/dL Lactic Acid (0.7-2.0) mmol/L Calcium 6.2 L (8.4-10.2) mg/dL Magnesium 2.90 H (1.7-2.3) mg/dL Total Creatine Kinase 1690 H (55-170) units/L CK-MB (CK-2) 21.4 H (0.0-4.0) ng/mL Troponin T 0.175 H* (0.00-0.029) ng/mL C-Reactive Protein 1.50 H (0.00-1.30) mg/dL NT-Pro-B Natriuret Pep 6011 H (0-900) pg/mL Triglycerides 177 H (2-149) mg/dL HDL Cholesterol 28 L (40-59) mg/dL Lipase 1198 H (13-60) units/L Crossmatch 09/09/21 09/09/21 09/09/21 Range/Units 18:53 20:10 20:49 RBC (3.65-5.03) M/mm3 Hgb (11.8-15.2) gm/dl Hct (35.5-45.6) % MCV (84-94) fl MCH (28-32) pg Lymph % (Auto) (13.4-35.0) % Lymph # (Auto) (1.2-5.4) K/mm3 Seg Neutrophils % (40.0-70.0) % PT (12.2-14.9) Sec. INR (0.87-1.13) D-Dimer (0-234) ng/mlDDU ABG pH (7.350-7.450) pH Units ABG pO2 (80.0-90.0) mm Hg ABG HCO3 (20.0-26.0) mmol/L ABG O2 Saturation (95.0-99.0) % ABG Base Excess (-2.0-3.0) mmol/L ABG Hemoglobin (14.0-18.0) gm/dl Oxyhemoglobin (95.0-99.0) % Sodium (137-145) mmol/L Potassium (3.6-5.0) mmol/L Chloride (98-107) mmol/L Carbon Dioxide (22-30) mmol/L BUN (9-20) mg/dL Creatinine (0.8-1.3) mg/dL Glucose (75-100) mg/dL Lactic Acid 2.80 H* 2.10 H* (0.7-2.0) mmol/L Calcium (8.4-10.2) mg/dL Magnesium (1.7-2.3) mg/dL Total Creatine Kinase (55-170) units/L CK-MB (CK-2) (0.0-4.0) ng/mL Troponin T (0.00-0.029) ng/mL C-Reactive Protein (0.00-1.30) mg/dL NT-Pro-B Natriuret Pep (0-900) pg/mL Triglycerides (2-149) mg/dL HDL Cholesterol (40-59) mg/dL Lipase (13-60) units/L Crossmatch See Detail 09/09/21 09/09/21 Range/Units 21:00 23:25 RBC (3.65-5.03) M/mm3 Hgb (11.8-15.2) gm/dl Hct (35.5-45.6) % MCV (84-94) fl MCH (28-32) pg Lymph % (Auto) (13.4-35.0) % Lymph # (Auto) (1.2-5.4) K/mm3 Seg Neutrophils % (40.0-70.0) % PT (12.2-14.9) Sec. INR (0.87-1.13) D-Dimer (0-234) ng/mlDDU ABG pH 7.100 L* (7.350-7.450) pH Units ABG pO2 60.9 L (80.0-90.0) mm Hg ABG HCO3 6.1 L (20.0-26.0) mmol/L ABG O2 Saturation 81.1 L (95.0-99.0) % ABG Base Excess -21.5 L (-2.0-3.0) mmol/L ABG Hemoglobin 5.0 L (14.0-18.0) gm/dl Oxyhemoglobin 79.7 L (95.0-99.0) % Sodium (137-145) mmol/L Potassium (3.6-5.0) mmol/L Chloride 95.5 L (98-107) mmol/L Carbon Dioxide 6 L* (22-30) mmol/L BUN 232 H (9-20) mg/dL Creatinine 43.0 H (0.8-1.3) mg/dL Glucose 61 L (75-100) mg/dL Lactic Acid (0.7-2.0) mmol/L Calcium 4.7 L* D (8.4-10.2) mg/dL Magnesium (1.7-2.3) mg/dL Total Creatine Kinase (55-170) units/L CK-MB (CK-2) (0.0-4.0) ng/mL Troponin T (0.00-0.029) ng/mL C-Reactive Protein (0.00-1.30) mg/dL NT-Pro-B Natriuret Pep (0-900) pg/mL Triglycerides (2-149) mg/dL HDL Cholesterol (40-59) mg/dL Lipase (13-60) units/L Crossmatch Medications & Allergies - Medications Allergies/Adverse Reactions: Allergies No Known Allergies Allergy (Unverified 01/17/17 01:04) Home Medications: Home Medications Medication Instructions Recorded Confirmed Last Taken Type Acetaminophen/Codeine [Tylenol #3] 1 tab PO Q6H PRN #7 tab 01/17/17 Unknown Rx Ibuprofen [Motrin] 600 mg PO Q8H PRN #15 tablet 01/17/17 Unknown Rx methOCARBAMOL [Robaxin TAB] 500 mg PO Q6H PRN #15 tablet 01/17/17 Unknown Rx Active Medications: Generic Name Dose Route Start Last Admin Trade Name Freq PRN Reason Stop Dose Admin Acetaminophen 650 mg 09/09/21 20:24 Acetaminophen 325 Mg Tab PO Q4H PRN Pain MILD(1-3)/Fever >100.5/LOCO Pantoprazole Sodium 80 mg/ 100 mls @ 10 mls/hr 09/09/21 21:00 Sodium Chloride IV DIRECT LENY 8 MG/HR Sodium Chloride 1,000 mls @ 42 mls/hr 09/09/21 20:30 Nacl 0.9% 1000 Ml IV DIRECT LENY Sodium Bicarbonate 150 meq/ 1,150 mls @ 125 mls/hr 09/09/21 21:00 Dextrose IV DIRECT LENY Metoclopramide HCl 10 mg 09/09/21 20:24 Metoclopramide 10 Mg/2 Ml Inj IV Q6H PRN Nausea And Vomiting Midazolam HCl 1 mg 09/09/21 23:45 Midazolam 2 Mg/2 Ml Inj IV 09/10/21 05:00 PREOP NR Morphine Sulfate 2 mg 09/09/21 20:24 Morphine 2 Mg/1 Ml Inj IV Q4H PRN Pain, Moderate (4-6) Ondansetron HCl 4 mg 09/09/21 20:24 Ondansetron 4 Mg/2 Ml Inj IV Q3H PRN Nausea And Vomiting Sodium Chloride 10 ml 09/09/21 22:00 Sodium Chloride 0.9% 10 Ml Flush Syringe IV BID LENY Sodium Chloride 10 ml 09/09/21 20:24 Sodium Chloride 0.9% 10 Ml Flush Syringe IV PRN PRN LINE FLUSH HEART Score - HEART Score Troponin: Troponin T 0.175 ng/mL (0.00-0.029) H* 09/09/21 18:53
[2021-09-10] MEDS ORDERED: CALC GLUCONATE 1GM/NS 100 ML 1 GM/100 ML BAG IV SCH (01:00)
[2021-09-10] MEDS ORDERED: SODIUM CHLORIDE 0.9% 500 ML 500 ML ONE (03:26)
[2021-09-10] MEDS: ONDANSETRON 4 MG/2 ML INJ IV PRN (05:50)
[2021-09-10] MEDS: MORPHINE 2 MG/1 ML INJ IV PRN (06:00)
[2021-09-10 09:16] LABS: Hematocrit 24.5 % (35.5-45.6); Hemoglobin 8.3 gm/dl (11.8-15.2); Mean Corpuscular HGB Conc 34 % (32-34); Mean Corpuscular Volume 81 fl (84-94); Platelet Count 176 K/mm3 (140-440); Red Blood Count 3.01 M/mm3 (3.65-5.03); Red Cell Distribution Width 15.9 % (13.2-15.2)
--- NOTE | 2021-09-10 09:20 | Progress Note ---
Assessment and Plan Assessment and plan: History of present illness: 61 years old male with past medical history of chronic kidney disease was brought to the hospital because of progressive shortness of breath as stated with vomiting and bleeding from nose for 1 day. Patient is a very poor historian. In the emergency room patient is found to have hemoglobin of 4.8 and hematocrit 14.9 also patient is found to have potassium of 7.1, bicarb 4, anion gap 54, BUN to 38 and creatinine 48.4, lactic acid 2.80. ABG shows pH 7.100, PCO2 20+0, PO2 60.9, bicarb 6.1 Subsequently Case was discussed with on-call GI doctor as well as nephrology who will do the hemodialysis immediately. We also put the patient on IMCU putting on bicarb drip, Protonix drip giving blood transfusion and consult critical care evaluation Hospital Course: 09/10: Improved on bedside encounter. Urology placed león catheter. Plan for nephrology to complete HD today. Hgb improved to 8.3, suspect anemia is purely from epistaxis, unclear if there was truly was a GI source. Will continue to monitor for other source of bleed. GI consulted, will follow recommendations. Assessment and Plan: #Acute hypoxic respiratory failure - O2 sat as low as 56% on admission, currently on nasal cannula satting 98%, not in respiratory distress - shortness of breath likely driven by severe anemia - cxr: no acute findings. - pulmonology following #Acute kidney injury due to post renal obstruction #Metabolic Acidosis #Lactic Acidosis #Hyperkalemia #Uremia #Urinary retention #Prostateamegaly - BUN to 38 and creatinine 48.4 -ABG pH 7.100, PCO2 20.0, PO2 60.9, bicarb 6.1 - K: 7.1, subsequently 3.2 - LA: 2.8->2.1 -nephrology consultation - urology called for león placement - noted on ctap, ordered psa - monitor electrolytes on serial renal profile - strict I/O, close UOP monitoring - avoid nephrotoxins, renally adjust medications - bicarb gtt to be continued per nephrology direction #Acute metabolic encephalopahty - likely due to uremia - improving #Blood loss anemia s/p 4 units prbc #Epistaxis (appears resolved) - hx of recurrent epistaxis per son, patient had increased uncontrolled bleeding for 1 day. No prior hx of GI bleed or reported blood in stool. Uremia could have likely percipitated bleed. - Hgb: 4.8 on admission, s/p 4 units prbc, now 8's - transfuse prn Hgb< 7. - GI consulted due to concern for GI bleed on admission - currently on protonix gtt - unclear if this is truly GI source, will defer to gastroenterology, D/w Dr. Juan A Martin #Type II myocardial infarction - supply demand from anemia in the setting TIFFANIE #Sepsis ruled out, doubt infectious etiology. The high probability of a clinically significant, sudden or life threatening deterioration of the [multi] system(s) required my full and direct attention, intervention and personal management. The aggregate critical care time was [60] minutes. This time is in addition to time spent performing reported procedures but includes the following: [x] Data Review and interpretation [x] Patient assessment and monitoring of vital signs [x] Documentation [x] Medication orders and management History Interval history: Resting comfortably on bedside, no acute complaints. Drowsy on encounter but answering questions appropriately Son Nimesh was at bedside encounter. I explained to him the extent to what was going on with his father and our plan for today. Per patient son, patient had never had (as far as he knew) any major medical issues with his kidney, prostate, colon or stomach. He states that his father did get recurrent nose bleeds but nothing uncontrollable. He stated that his father had never had an endoscopy or colonoscopy. Hospitalist Physical - Physical exam Narrative exam: General appearance: Present: no acute distress, well-nourished, resting comfortably. NC in place. drowsy - EENT Eyes: Present: PERRL ENT: hearing intact, clear oral mucosa - Neck Neck: Present: supple, normal ROM - Respiratory Respiratory effort: normal Respiratory: bilateral: diminished - Cardiovascular Heart Sounds: Present: S1 & S2. Absent: rub, click - Extremities Extremities: pulses symmetrical, No edema Peripheral Pulses: within normal limits - Abdominal General gastrointestinal: Present: soft, non-tender, non-distended, normal bowel sounds Male genitourinary: Present: normal - Integumentary Integumentary: Present: clear, warm, dry - Musculoskeletal Musculoskeletal: gait normal, strength equal bilaterally - Psychiatric Psychiatric: appropriate mood/affect, intact judgment & insight - Neurologic Neurologic: CNII-XII intact, moves all extremities - Constitutional Vitals: Temp Pulse Resp BP Pulse Ox 97.9 F 98 H 12 149/98 99 09/10/21 06:40 09/10/21 07:00 09/10/21 07:00 09/10/21 07:00 09/10/21 07:00 General appearance: Present: mild distress, cachectic, disheveled HEART Score - HEART Score Troponin: Troponin T 0.175 ng/mL (0.00-0.029) H* 09/09/21 18:53 Results - Labs CBC & Chem 7: 09/10/21 Unknown 09/10/21 Unknown Labs: Laboratory Last Values WBC 9.0 K/mm3 (4.5-11.0) 09/09/21 18:53 RBC 1.89 M/mm3 (3.65-5.03) L 09/09/21 18:53 Hgb 4.8 gm/dl (11.8-15.2) L* 09/09/21 18:53 Hct 14.9 % (35.5-45.6) L* 09/09/21 18:53 MCV 79 fl (84-94) L 09/09/21 18:53 MCH 25 pg (28-32) L 09/09/21 18:53 MCHC 32 % (32-34) 09/09/21 18:53 RDW 14.1 % (13.2-15.2) 09/09/21 18:53 Plt Count 321 K/mm3 (140-440) 09/09/21 18:53 Lymph % (Auto) 11.6 % (13.4-35.0) L 09/09/21 18:53 Stanton % (Auto) 6.7 % (0.0-7.3) 09/09/21 18:53 Eos % (Auto) 0.2 % (0.0-4.3) 09/09/21 18:53 Baso % (Auto) 0.2 % (0.0-1.8) 09/09/21 18:53 Lymph # (Auto) 1.0 K/mm3 (1.2-5.4) L 09/09/21 18:53 Stanton # (Auto) 0.6 K/mm3 (0.0-0.8) 09/09/21 18:53 Eos # (Auto) 0.0 K/mm3 (0.0-0.4) 09/09/21 18:53 Baso # (Auto) 0.0 K/mm3 (0.0-0.1) 09/09/21 18:53 Seg Neutrophils % 81.3 % (40.0-70.0) H 09/09/21 18:53 Seg Neutrophils # 7.3 K/mm3 (1.8-7.7) 09/09/21 18:53 PT 16.6 Sec. (12.2-14.9) H 09/09/21 18:53 INR 1.20 (0.87-1.13) H 09/09/21 18:53 D-Dimer 2203.38 ng/mlDDU (0-234) H 09/09/21 18:53 ABG pH 7.100 pH Units (7.350-7.450) L* 09/09/21 21:00 ABG pCO2 20.0 mm Hg 09/09/21 21:00 ABG pO2 60.9 mm Hg (80.0-90.0) L 09/09/21 21:00 ABG HCO3 6.1 mmol/L (20.0-26.0) L 09/09/21 21:00 ABG O2 Saturation 81.1 % (95.0-99.0) L 09/09/21 21:00 ABG O2 Content 4.8 (0.0-44) 09/09/21 21:00 ABG Base Excess -21.5 mmol/L (-2.0-3.0) L 09/09/21 21:00 ABG Hemoglobin 5.0 gm/dl (14.0-18.0) L 09/09/21 21:00 ABG Carboxyhemoglobin 1.3 % (0.0-5.0) 09/09/21 21:00 ABG Methemoglobin 0.5 % (0.0-1.5) 09/09/21 21:00 Oxyhemoglobin 79.7 % (95.0-99.0) L 09/09/21 21:00 FiO2 28 % 09/09/21 21:00 Sodium 138 mmol/L (137-145) 09/09/21 23:25 Potassium 5.0 mmol/L (3.6-5.0) D 09/09/21 23:25 Chloride 95.5 mmol/L (98-107) L 09/09/21 23:25 Carbon Dioxide 6 mmol/L (22-30) L* 09/09/21 23:25 Anion Gap 42 mmol/L 09/09/21 23:25 BUN 232 mg/dL (9-20) H 09/09/21 23:25 Creatinine 43.0 mg/dL (0.8-1.3) H 09/09/21 23:25 Estimated GFR 1 ml/min 09/09/21 23:25 BUN/Creatinine Ratio 5 % 09/09/21 23:25 Glucose 61 mg/dL (75-100) L 09/09/21 23:25 POC Glucose 147 mg/dL (70-105) H 09/10/21 07:35 Lactic Acid 2.10 mmol/L (0.7-2.0) H* 09/09/21 20:49 Calcium 4.7 mg/dL (8.4-10.2) L* D 09/09/21 23:25 Magnesium 2.90 mg/dL (1.7-2.3) H 09/09/21 18:53 Total Bilirubin 0.30 mg/dL (0.1-1.2) 09/09/21 18:53 AST 17 units/L (5-40) 09/09/21 18:53 ALT 19 units/L (7-56) 09/09/21 18:53 Alkaline Phosphatase 57 units/L (35-129) 09/09/21 18:53 Ammonia 39.0 umol/L (25-60) 09/09/21 19:02 Total Creatine Kinase 1690 units/L (55-170) H 09/09/21 18:53 CK-MB (CK-2) 21.4 ng/mL (0.0-4.0) H 09/09/21 18:53 CK-MB (CK-2) Rel Index 1.2 (0-4) 09/09/21 18:53 Troponin T 0.175 ng/mL (0.00-0.029) H* 09/09/21 18:53 C-Reactive Protein 1.50 mg/dL (0.00-1.30) H 09/09/21 18:53 NT-Pro-B Natriuret Pep 6011 pg/mL (0-900) H 09/09/21 18:53 Total Protein 7.4 g/dL (6.3-8.2) 09/09/21 18:53 Albumin 4.2 g/dL (3.9-5) 09/09/21 18:53 Albumin/Globulin Ratio 1.3 % 09/09/21 18:53 Triglycerides 177 mg/dL (2-149) H 09/09/21 18:53 Cholesterol 170 mg/dL (50-199) 09/09/21 18:53 LDL Cholesterol Direct 107 mg/dL (50-130) 09/09/21 18:53 HDL Cholesterol 28 mg/dL (40-59) L 09/09/21 18:53 Cholesterol/HDL Ratio 6.07 % 09/09/21 18:53 Lipase 1198 units/L (13-60) H 09/09/21 18:53 Hep Bs Antigen Non-reactive (Negative) 09/09/21 20:55 Hep B Core IgM Ab Non-reactive (NonReactive) 09/09/21 20:55 Hepatitis C Antibody Non-reactive (NonReactive) 09/09/21 20:55 Blood Type O POSITIVE 09/09/21 20:10 Antibody Screen Negative 09/09/21 20:10 Crossmatch See Detail 09/09/21 20:10 Active Medications - Current Medications Current Medications: Generic Name Dose Route Start Last Admin Trade Name Freq PRN Reason Stop Dose Admin Acetaminophen 650 mg 09/09/21 20:24 Acetaminophen 325 Mg Tab PO Q4H PRN Pain MILD(1-3)/Fever >100.5/LOCO Pantoprazole Sodium 80 mg/ 100 mls @ 10 mls/hr 09/09/21 21:00 Sodium Chloride IV DIRECT LENY 8 MG/HR Sodium Bicarbonate 150 meq/ 1,150 mls @ 125 mls/hr 09/09/21 21:00 09/09/21 22:04 Dextrose IV 125 mls/hr DIRECT LENY Administration CALC GLUCONATE 1GM/NS 100 ML 1 gm in 100 mls @ 300 mls/hr 09/10/21 01:00 Calcium Gluonate/Ns 1,000mg/100ml IV 09/11/21 01:19 Q20MIN LENY Metoclopramide HCl 10 mg 09/09/21 20:24 Metoclopramide 10 Mg/2 Ml Inj IV Q6H PRN Nausea And Vomiting Morphine Sulfate 2 mg 09/09/21 20:24 09/10/21 06:00 Morphine 2 Mg/1 Ml Inj IV 2 mg Q4H PRN Administration Pain, Moderate (4-6) Ondansetron HCl 4 mg 09/09/21 20:24 09/10/21 05:50 Ondansetron 4 Mg/2 Ml Inj IV 4 mg Q3H PRN Administration Nausea And Vomiting Sodium Chloride 10 ml 09/09/21 22:00 09/09/21 22:04 Sodium Chloride 0.9% 10 Ml Flush Syringe IV 10 ml BID LENY Administration Sodium Chloride 10 ml 09/09/21 20:24 Sodium Chloride 0.9% 10 Ml Flush Syringe IV PRN PRN LINE FLUSH
[2021-09-10 09:35] LABS: Calcium 7.1 mg/dL (8.4-10.2)
[2021-09-10] MEDS: SODIUM BICARBONATE 150 MEQ in DEXTROSE 5% IN WATER 1,000 ML IV SCH ×2 (10:04→20:12)
[2021-09-10] MEDS: PANTOPRAZOLE 80 MG in SODIUM CHLORIDE 0.9% 100 ML IV SCH ×2 (10:04→20:12)
--- NOTE | 2021-09-10 10:23 | Electrocardiograph Report ---
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
[2021-09-10 11:33] LABS: Basophils % (Manual) 0 % (0.0-1.8); Eosinophils % (Manual) 0 % (0.0-4.3); Total Cells Counted 100
[2021-09-10 11:36] LABS: Hypochromasia 1+
[2021-09-10 11:37] LABS: Platelet Estimate Consistent w Auto; Poikilocytosis Few; Stomatocytes Rare; Target Cells Rare
--- NOTE | 2021-09-10 12:09 | Consultation ---
History of Present Illness - Reason for Consult Consult date: 09/10/21 acute renal failure - History of Present Illness 61 years old male with past medical was brought to the hospital because of progressive shortness of breath as stated with vomiting and bleeding from nose for 1 day. In the emergency room patient is found to have hemoglobin of 4.8 and hematocrit 14.9 also patient is found to have potassium of 7.1, bicarb 4, anion gap 54, BUN to 38 and creatinine 48.4, lactic acid 2.80. vascath was placed and he received emergent HD. at bedside. all questions answered. Past History Past Medical History: hypertension, renal failure Past Surgical History: No surgical history Social history: alcohol abuse Family history: hypertension Medications and Allergies Allergies Allergy/AdvReac Type Severity Reaction Status Date / Time No Known Allergies Allergy Unverified 01/17/17 01:04 Home Medications Medication Instructions Recorded Confirmed Last Taken Type Acetaminophen/Codeine [Tylenol #3] 1 tab PO Q6H PRN #7 tab 01/17/17 Unknown Rx Ibuprofen [Motrin] 600 mg PO Q8H PRN #15 tablet 01/17/17 Unknown Rx methOCARBAMOL [Robaxin TAB] 500 mg PO Q6H PRN #15 tablet 01/17/17 Unknown Rx Active Meds: Active Medications Acetaminophen (Acetaminophen 325 Mg Tab) 650 mg PO Q4H PRN PRN Reason: Pain MILD(1-3)/Fever >100.5/LOCO Pantoprazole Sodium 80 mg/ (Sodium Chloride) 100 mls @ 10 mls/hr IV DIRECT LENY Last Admin: 09/10/21 10:04 Dose: 8 mg/hr, 10 mls/hr Sodium Bicarbonate 150 meq/ (Dextrose) 1,150 mls @ 125 mls/hr IV DIRECT LENY Last Admin: 09/10/21 10:04 Dose: 125 mls/hr CALC GLUCONATE 1GM/NS 100 ML (Calcium Gluonate/Ns 1,000mg/100ml) 1 gm in 100 mls @ 300 mls/hr IV Q20MIN LENY Stop: 09/11/21 01:19 Metoclopramide HCl (Metoclopramide 10 Mg/2 Ml Inj) 10 mg IV Q6H PRN PRN Reason: Nausea And Vomiting Morphine Sulfate (Morphine 2 Mg/1 Ml Inj) 2 mg IV Q4H PRN PRN Reason: Pain, Moderate (4-6) Last Admin: 09/10/21 06:00 Dose: 2 mg Ondansetron HCl (Ondansetron 4 Mg/2 Ml Inj) 4 mg IV Q3H PRN PRN Reason: Nausea And Vomiting Last Admin: 09/10/21 05:50 Dose: 4 mg Sodium Chloride (Sodium Chloride 0.9% 10 Ml Flush Syringe) 10 ml IV BID LENY Last Admin: 09/10/21 09:19 Dose: 10 ml Sodium Chloride (Sodium Chloride 0.9% 10 Ml Flush Syringe) 10 ml IV PRN PRN PRN Reason: LINE FLUSH Review of Systems All systems: negative (weakness, AMS) Exam - Vital Signs Vital signs: Vital Signs Temp Pulse Resp BP Pulse Ox 97.7 F 88 20 171/57 100 09/09/21 11:18 09/09/21 11:18 09/09/21 11:18 09/09/21 11:18 09/09/21 11:18 - General Appearance General appearance: well-developed, well-nourished EENT: ATNC, PERRL Neck: Present: neck supple Respiratory: Clear to Ascultation Heart: regular, S1S2 Gastrointestinal: Present: normoactive bowel sounds. Absent: tenderness, distended, masses Integumentary: no rash, warm and dry Neurologic: asterixis Musculoskeletal: Present: other (no edema in BLE) Results - Lab Results 09/10/21 Unknown 09/10/21 Unknown Most recent lab results ABG pH 7.100 pH Units (7.350-7.450) L* 09/09/21 21:00 ABG pCO2 20.0 mm Hg 09/09/21 21:00 ABG pO2 60.9 mm Hg (80.0-90.0) L 09/09/21 21:00 ABG HCO3 6.1 mmol/L (20.0-26.0) L 09/09/21 21:00 ABG O2 Saturation 81.1 % (95.0-99.0) L 09/09/21 21:00 Calcium 7.1 mg/dL (8.4-10.2) L D 09/10/21 Unknown Magnesium 2.90 mg/dL (1.7-2.3) H 09/09/21 18:53 Assessment and Plan Severe renal failure secondary to obstructive uropathy Hyperkalemia Metabolic acidosis uremia Acute Anemia CT AP showed BL hydronephrosis and bladder scan +ve for urinary retention, RN could not place león catheter, urology consult was requested, urologist is aware. HD again today without UF to treat uremic bleeding and encephalopathy after león placement, will need to monitor post obstructive diuresis closely, monitor K, Mg and Phos with close monitring of hypotension cont bicarb gtt for now for severe metabolic acidosis renally dose meds strict I&O daily weight.
--- NOTE | 2021-09-10 12:27 | Consultation ---
History of Present Illness - Reason for Consult Consult date: 09/10/21 - History of Present Illness new to our service retention 61 years old male with past medical history of chronic kidney disease was brought to the hospital because of progressive shortness of breath as stated with vomiting and bleeding from nose for 1 day. Patient is a very poor historian. In the emergency room patient is found to have hemoglobin of 4.8 and hematocrit 14.9 also patient is found to have potassium of 7.1, bicarb 4, anion gap 54, BUN to 38 and creatinine 48.4, lactic acid 2.80. ABG shows pH 7.100, PCO2 20+0, PO2 60.9, bicarb 6.1. hospital staff unable to place león CTAP--- distended bladder wire [id number] modoc tip (side port tied) --- no problem - reza urine A/P retention call for león removal flomax 1qd if ok with nephrology Past History Past Medical History: hypertension, renal failure Past Surgical History: No surgical history Social history: alcohol abuse Family history: hypertension Medications and Allergies Allergies Allergy/AdvReac Type Severity Reaction Status Date / Time No Known Allergies Allergy Unverified 01/17/17 01:04 Home Medications Medication Instructions Recorded Confirmed Last Taken Type Acetaminophen/Codeine [Tylenol #3] 1 tab PO Q6H PRN #7 tab 01/17/17 Unknown Rx Ibuprofen [Motrin] 600 mg PO Q8H PRN #15 tablet 01/17/17 Unknown Rx methOCARBAMOL [Robaxin TAB] 500 mg PO Q6H PRN #15 tablet 01/17/17 Unknown Rx Active Meds: Active Medications Acetaminophen (Acetaminophen 325 Mg Tab) 650 mg PO Q4H PRN PRN Reason: Pain MILD(1-3)/Fever >100.5/LOCO Pantoprazole Sodium 80 mg/ (Sodium Chloride) 100 mls @ 10 mls/hr IV DIRECT LENY Last Admin: 09/10/21 10:04 Dose: 8 mg/hr, 10 mls/hr Sodium Bicarbonate 150 meq/ (Dextrose) 1,150 mls @ 125 mls/hr IV DIRECT LENY Last Admin: 09/10/21 10:04 Dose: 125 mls/hr CALC GLUCONATE 1GM/NS 100 ML (Calcium Gluonate/Ns 1,000mg/100ml) 1 gm in 100 mls @ 300 mls/hr IV Q20MIN [facility] Stop: 09/11/21 01:19 Metoclopramide HCl (Metoclopramide 10 Mg/2 Ml Inj) 10 mg IV Q6H PRN PRN Reason: Nausea And Vomiting Morphine Sulfate (Morphine 2 Mg/1 Ml Inj) 2 mg IV Q4H PRN PRN Reason: Pain, Moderate (4-6) Last Admin: 09/10/21 06:00 Dose: 2 mg Ondansetron HCl (Ondansetron 4 Mg/2 Ml Inj) 4 mg IV Q3H PRN PRN Reason: Nausea And Vomiting Last Admin: 09/10/21 05:50 Dose: 4 mg Sodium Chloride (Sodium Chloride 0.9% 10 Ml Flush Syringe) 10 ml IV BID [facility] Last Admin: 09/10/21 09:19 Dose: 10 ml Sodium Chloride (Sodium Chloride 0.9% 10 Ml Flush Syringe) 10 ml IV PRN PRN PRN Reason: LINE FLUSH Exam - Constitutional Vitals: Temp Pulse Resp BP Pulse Ox 97.9 F 85 13 188/96 99 09/10/21 06:40 09/10/21 12:00 09/10/21 12:00 09/10/21 12:00 09/10/21 12:00 Results - Labs CBC & Chem 7: 09/10/21 Unknown 09/10/21 Unknown Labs: Abnormal lab results 09/09/21 09/09/21 09/09/21 Range/Units 18:53 18:53 18:53 RBC 1.89 L (3.65-5.03) M/mm3 Hgb 4.8 L* (11.8-15.2) gm/dl Hct 14.9 L* (35.5-45.6) % MCV 79 L (84-94) fl MCH 25 L (28-32) pg RDW (13.2-15.2) % Lymph % (Auto) 11.6 L (13.4-35.0) % Lymph # (Auto) 1.0 L (1.2-5.4) K/mm3 Seg Neutrophils % 81.3 H (40.0-70.0) % Seg Neuts % (Manual) (40.0-70.0) % Lymphocytes % (Manual) (13.4-35.0) % Nucleated RBC % (0.0-0.9) % Lymphocytes # (Manual) (1.2-5.4) K/mm3 PT 16.6 H (12.2-14.9) Sec. INR 1.20 H (0.87-1.13) D-Dimer 2203.38 H (0-234) ng/mlDDU ABG pH (7.350-7.450) pH Units ABG pO2 (80.0-90.0) mm Hg ABG HCO3 (20.0-26.0) mmol/L ABG O2 Saturation (95.0-99.0) % ABG Base Excess (-2.0-3.0) mmol/L ABG Hemoglobin (14.0-18.0) gm/dl Oxyhemoglobin (95.0-99.0) % Sodium 134 L (137-145) mmol/L Potassium 7.1 H* (3.6-5.0) mmol/L Chloride 83.4 L (98-107) mmol/L Carbon Dioxide 4 L* (22-30) mmol/L BUN 238 H (9-20) mg/dL Creatinine 48.4 H (0.8-1.3) mg/dL Glucose 130 H (75-100) mg/dL POC Glucose (70-105) mg/dL Lactic Acid (0.7-2.0) mmol/L Calcium 6.2 L (8.4-10.2) mg/dL Magnesium 2.90 H (1.7-2.3) mg/dL Total Creatine Kinase 1690 H (55-170) units/L CK-MB (CK-2) 21.4 H (0.0-4.0) ng/mL Troponin T 0.175 H* (0.00-0.029) ng/mL C-Reactive Protein 1.50 H (0.00-1.30) mg/dL NT-Pro-B Natriuret Pep 6011 H (0-900) pg/mL Triglycerides 177 H (2-149) mg/dL HDL Cholesterol 28 L (40-59) mg/dL Lipase 1198 H (13-60) units/L Prostate Specific Ag (0.00-4.00) ng/mL Crossmatch 09/09/21 09/09/21 09/09/21 Range/Units 18:53 20:10 20:49 RBC (3.65-5.03) M/mm3 Hgb (11.8-15.2) gm/dl Hct (35.5-45.6) % MCV (84-94) fl MCH (28-32) pg RDW (13.2-15.2) % Lymph % (Auto) (13.4-35.0) % Lymph # (Auto) (1.2-5.4) K/mm3 Seg Neutrophils % (40.0-70.0) % Seg Neuts % (Manual) (40.0-70.0) % Lymphocytes % (Manual) (13.4-35.0) % Nucleated RBC % (0.0-0.9) % Lymphocytes # (Manual) (1.2-5.4) K/mm3 PT (12.2-14.9) Sec. INR (0.87-1.13) D-Dimer (0-234) ng/mlDDU ABG pH (7.350-7.450) pH Units ABG pO2 (80.0-90.0) mm Hg ABG HCO3 (20.0-26.0) mmol/L ABG O2 Saturation (95.0-99.0) % ABG Base Excess (-2.0-3.0) mmol/L ABG Hemoglobin (14.0-18.0) gm/dl Oxyhemoglobin (95.0-99.0) % Sodium (137-145) mmol/L Potassium (3.6-5.0) mmol/L Chloride (98-107) mmol/L Carbon Dioxide (22-30) mmol/L BUN (9-20) mg/dL Creatinine (0.8-1.3) mg/dL Glucose (75-100) mg/dL POC Glucose (70-105) mg/dL Lactic Acid 2.80 H* 2.10 H* (0.7-2.0) mmol/L Calcium (8.4-10.2) mg/dL Magnesium (1.7-2.3) mg/dL Total Creatine Kinase (55-170) units/L CK-MB (CK-2) (0.0-4.0) ng/mL Troponin T (0.00-0.029) ng/mL C-Reactive Protein (0.00-1.30) mg/dL NT-Pro-B Natriuret Pep (0-900) pg/mL Triglycerides (2-149) mg/dL HDL Cholesterol (40-59) mg/dL Lipase (13-60) units/L Prostate Specific Ag (0.00-4.00) ng/mL Crossmatch See Detail 09/09/21 09/09/21 09/10/21 Range/Units 21:00 23:25 07:35 RBC (3.65-5.03) M/mm3 Hgb (11.8-15.2) gm/dl Hct (35.5-45.6) % MCV (84-94) fl MCH (28-32) pg RDW (13.2-15.2) % Lymph % (Auto) (13.4-35.0) % Lymph # (Auto) (1.2-5.4) K/mm3 Seg Neutrophils % (40.0-70.0) % Seg Neuts % (Manual) (40.0-70.0) % Lymphocytes % (Manual) (13.4-35.0) % Nucleated RBC % (0.0-0.9) % Lymphocytes # (Manual) (1.2-5.4) K/mm3 PT (12.2-14.9) Sec. INR (0.87-1.13) D-Dimer (0-234) ng/mlDDU ABG pH 7.100 L* (7.350-7.450) pH Units ABG pO2 60.9 L (80.0-90.0) mm Hg ABG HCO3 6.1 L (20.0-26.0) mmol/L ABG O2 Saturation 81.1 L (95.0-99.0) % ABG Base Excess -21.5 L (-2.0-3.0) mmol/L ABG Hemoglobin 5.0 L (14.0-18.0) gm/dl Oxyhemoglobin 79.7 L (95.0-99.0) % Sodium (137-145) mmol/L Potassium (3.6-5.0) mmol/L Chloride 95.5 L (98-107) mmol/L Carbon Dioxide 6 L* (22-30) mmol/L BUN 232 H (9-20) mg/dL Creatinine 43.0 H (0.8-1.3) mg/dL Glucose 61 L (75-100) mg/dL POC Glucose 147 H (70-105) mg/dL Lactic Acid (0.7-2.0) mmol/L Calcium 4.7 L* D (8.4-10.2) mg/dL Magnesium (1.7-2.3) mg/dL Total Creatine Kinase (55-170) units/L CK-MB (CK-2) (0.0-4.0) ng/mL Troponin T (0.00-0.029) ng/mL C-Reactive Protein (0.00-1.30) mg/dL NT-Pro-B Natriuret Pep (0-900) pg/mL Triglycerides (2-149) mg/dL HDL Cholesterol (40-59) mg/dL Lipase (13-60) units/L Prostate Specific Ag (0.00-4.00) ng/mL Crossmatch 09/10/21 09/10/21 09/10/21 Range/Units Unknown Unknown Unknown RBC 3.01 L (3.65-5.03) M/mm3 Hgb 8.3 L D (11.8-15.2) gm/dl Hct 24.5 L D (35.5-45.6) % MCV 81 L (84-94) fl MCH (28-32) pg RDW 15.9 H (13.2-15.2) % Lymph % (Auto) (13.4-35.0) % Lymph # (Auto) (1.2-5.4) K/mm3 Seg Neutrophils % (40.0-70.0) % Seg Neuts % (Manual) 92.0 H (40.0-70.0) % Lymphocytes % (Manual) 3.0 L (13.4-35.0) % Nucleated RBC % 1.0 H (0.0-0.9) % Lymphocytes # (Manual) 0.2 L (1.2-5.4) K/mm3 PT (12.2-14.9) Sec. INR (0.87-1.13) D-Dimer (0-234) ng/mlDDU ABG pH (7.350-7.450) pH Units ABG pO2 (80.0-90.0) mm Hg ABG HCO3 (20.0-26.0) mmol/L ABG O2 Saturation (95.0-99.0) % ABG Base Excess (-2.0-3.0) mmol/L ABG Hemoglobin (14.0-18.0) gm/dl Oxyhemoglobin (95.0-99.0) % Sodium (137-145) mmol/L Potassium 3.2 L D (3.6-5.0) mmol/L Chloride 94.6 L (98-107) mmol/L Carbon Dioxide 20 L D (22-30) mmol/L BUN 108 H (9-20) mg/dL Creatinine 21.1 H D (0.8-1.3) mg/dL Glucose 146 H (75-100) mg/dL POC Glucose (70-105) mg/dL Lactic Acid (0.7-2.0) mmol/L Calcium 7.1 L D (8.4-10.2) mg/dL Magnesium (1.7-2.3) mg/dL Total Creatine Kinase 1530 H (55-170) units/L CK-MB (CK-2) (0.0-4.0) ng/mL Troponin T (0.00-0.029) ng/mL C-Reactive Protein (0.00-1.30) mg/dL NT-Pro-B Natriuret Pep (0-900) pg/mL Triglycerides (2-149) mg/dL HDL Cholesterol (40-59) mg/dL Lipase (13-60) units/L Prostate Specific Ag 5.18 H (0.00-4.00) ng/mL Crossmatch
[2021-09-10 13:23] LABS: Bilirubin,Urine NEG (Negative); Color,Urine Straw (Yellow)
[2021-09-10 13:24] LABS: Blood,Urine MOD (Negative); Urobilinogen,Urine < 2.0 mg/dL (<2.0)
[2021-09-10 13:34] LABS: Amphetamine Screen,Urine PRESUMPTIVE NEGATIVE; Benzodiazepines Screen,Urine PRESUMPTIVE NEGATIVE; Cannabinoid Screen,Urine PRESUMPTIVE NEGATIVE; Cocaine Screen,Urine PRESUMPTIVE NEGATIVE; Methadone Screen,Urine PRESUMPTIVE NEGATIVE; Opiate Screen,Urine PRESUMPTIVE NEGATIVE
[2021-09-10 13:44] LABS: Creatinine,Urine 112.8 mg/dL (0.1-20.0); Protein/Creatinine Ratio,Urine 1.78
--- NOTE | 2021-09-10 15:12 | Consultation ---
History of Present Illness Consult date: 09/10/21 Requesting physician: SERGEY MURILLO Consult reason: elevated troponin History of present illness: Chief complaint: SOB, Nose Bleed This is a 61-year-old -[place] male with unknown past medical history, who is also unknown to our practice, who presented to [facility] yesterday 09/09/2021, with dyspnea respiratory distress as well as nosebleed and vomiting. All information obtained from review of records and son at bedside due to patient condition. Work-up in the emergency department revealed patient was profoundly anemic with a hemoglobin of 4.8, heme positive, hyperkalemia, septic, with epistaxis, and elevated troponin, as well as ARF with creatinine of 48.4. He was admitted to critical care and ultimately dialyzed emergently. CT abd/pelvis also obtained revealing prostatomegaly with bladder base indentation, severe bilateral hydronephrosis and hydroureter, left lower lung bronchitis, and single incidental pulmonary nodule in the right lower lobe measuring 12 mm with perifissural/subpleural characteristics. Cardiology was consulted for elevated troponins. Past History Past Medical History: hypertension, renal failure Past Surgical History: No surgical history Social history: alcohol abuse Family history: hypertension Medications and Allergies Allergies Allergy/AdvReac Type Severity Reaction Status Date / Time No Known Allergies Allergy Unverified 01/17/17 01:04 Home Medications Medication Instructions Recorded Confirmed Last Taken Type Acetaminophen/Codeine [Tylenol #3] 1 tab PO Q6H PRN #7 tab 01/17/17 Unknown Rx Ibuprofen [Motrin] 600 mg PO Q8H PRN #15 tablet 01/17/17 Unknown Rx methOCARBAMOL [Robaxin TAB] 500 mg PO Q6H PRN #15 tablet 01/17/17 Unknown Rx Active Meds: Active Medications Acetaminophen (Acetaminophen 325 Mg Tab) 650 mg PO Q4H PRN PRN Reason: Pain MILD(1-3)/Fever >100.5/LOCO Pantoprazole Sodium 80 mg/ (Sodium Chloride) 100 mls @ 10 mls/hr IV DIRECT LENY Last Admin: 09/10/21 10:04 Dose: 8 mg/hr, 10 mls/hr Sodium Bicarbonate 150 meq/ (Dextrose) 1,150 mls @ 125 mls/hr IV DIRECT LENY Last Admin: 09/10/21 10:04 Dose: 125 mls/hr CALC GLUCONATE 1GM/NS 100 ML (Calcium Gluonate/Ns 1,000mg/100ml) 1 gm in 100 mls @ 300 mls/hr IV Q20MIN [facility] Stop: 09/11/21 01:19 Metoclopramide HCl (Metoclopramide 10 Mg/2 Ml Inj) 10 mg IV Q6H PRN PRN Reason: Nausea And Vomiting Morphine Sulfate (Morphine 2 Mg/1 Ml Inj) 2 mg IV Q4H PRN PRN Reason: Pain, Moderate (4-6) Last Admin: 09/10/21 06:00 Dose: 2 mg Ondansetron HCl (Ondansetron 4 Mg/2 Ml Inj) 4 mg IV Q3H PRN PRN Reason: Nausea And Vomiting Last Admin: 09/10/21 05:50 Dose: 4 mg Sodium Chloride (Sodium Chloride 0.9% 10 Ml Flush Syringe) 10 ml IV BID [facility] Last Admin: 09/10/21 09:19 Dose: 10 ml Sodium Chloride (Sodium Chloride 0.9% 10 Ml Flush Syringe) 10 ml IV PRN PRN PRN Reason: LINE FLUSH Review of Systems ROS unobtainable: due to mental status Physical Examination Vital Signs 09/10/21 09/10/21 09/10/21 08:00 09:00 10:00 Pulse Rate 89 87 85 Respiratory 11 L 12 13 Rate Blood Pressure 176/100 172/89 155/85 O2 Sat by Pulse 98 98 98 Oximetry 09/10/21 09/10/21 09/10/21 11:00 12:00 14:15 Pulse Rate 83 85 89 Respiratory 12 13 Rate Blood Pressure 174/90 188/96 177/91 O2 Sat by Pulse 98 99 Oximetry 09/10/21 09/10/21 14:30 14:45 Pulse Rate 91 H 93 H Respiratory Rate Blood Pressure 174/93 151/93 O2 Sat by Pulse Oximetry General appearance: no acute distress HEENT: Positive: Normocephaly Neck: Positive: trachea midline Cardiac: Positive: Regular Rate, S1/S2 Lungs: Positive: clear to auscultation Neuro: Positive: Other (somnolent ) Abdomen: Positive: Soft, Active Bowel Sounds Male genitourinary: Positive: deferred Skin: Negative: Rash Extremities: Absent: edema Results 09/10/21 Unknown 09/10/21 Unknown Cardiac Enzymes 09/09/21 Range/Units 18:53 AST 17 (5-40) units/L CK-MB (CK-2) 21.4 H (0.0-4.0) ng/mL Coagulation 09/09/21 Range/Units 18:53 PT 16.6 H (12.2-14.9) Sec. INR 1.20 H (0.87-1.13) Lipids 09/09/21 Range/Units 18:53 Triglycerides 177 H (2-149) mg/dL Cholesterol 170 (50-199) mg/dL HDL Cholesterol 28 L (40-59) mg/dL Cholesterol/HDL Ratio 6.07 % CBC 09/09/21 09/10/21 Range/Units 18:53 Unknown WBC 9.0 7.9 (4.5-11.0) K/mm3 RBC 1.89 L 3.01 L (3.65-5.03) M/mm3 Hgb 4.8 L* 8.3 L D (11.8-15.2) gm/dl Hct 14.9 L* 24.5 L D (35.5-45.6) % Plt Count 321 176 (140-440) K/mm3 Lymph # (Auto) 1.0 L (1.2-5.4) K/mm3 [place] # (Auto) 0.6 (0.0-0.8) K/mm3 Eos # (Auto) 0.0 (0.0-0.4) K/mm3 Baso # (Auto) 0.0 (0.0-0.1) K/mm3 Comprehensive Metabolic Panel 09/09/21 09/09/21 09/10/21 Range/Units 18:53 23:25 Unknown Sodium 134 L 138 141 (137-145) mmol/L Potassium 7.1 H* 5.0 D 3.2 L D (3.6-5.0) mmol/L Chloride 83.4 L 95.5 L 94.6 L (98-107) mmol/L Carbon Dioxide 4 L* 6 L* 20 L D (22-30) mmol/L BUN 238 H 232 H 108 H (9-20) mg/dL Creatinine 48.4 H 43.0 H 21.1 H D (0.8-1.3) mg/dL Glucose 130 H 61 L 146 H (75-100) mg/dL Calcium 6.2 L 4.7 L* D 7.1 L D (8.4-10.2) mg/dL AST 17 (5-40) units/L ALT 19 (7-56) units/L Alkaline Phosphatase 57 (35-129) units/L Total Protein 7.4 (6.3-8.2) g/dL Albumin 4.2 (3.9-5) g/dL - Imaging and Cardiology Echo: pending EKG: report reviewed EKG interpretations - EKG Sinus rhythms and dysrhythmias: sinus rhythm (prolonged AT interval; no acute ishemic changes) Assessment and Plan Assessment NSTEMI, likely type II in the setting of acute renal failure Anemia- s/p 4 units PRBC. On protonix gtt. Acute renal failure, requiring emergent HD - 2/2 obstructive uropathy Shortness of breath/Hypoxemia Hypertension Epistaxis Hx of ETOH abuse (son reports father quit drinking appox 6 months ago but used to drink 1-2 glasses of liquor per day) Cardiographics EKG: SR, prolonged QT interval; No acute ischemic changes, rate 84 CXR 09/09/2021: No acute findings Echocardiogram: Pending Recommendations/plan NSTEMI, likely type II in setting of ARF. Trend troponin x2 additional sets Avoid asa in setting of acute bleeding with unknown source. Patient does not appear to clinically be in heart failure. Elevated BNP likely related secondary to ARF. Further treatment pending echocardiogram results. Will defer ischemic evaluation for now; await improvement in clinical condition. Continuous telemetry monitoring. Electrolyte and fluid management per renal and HD. BMP in am. UDS and serum alcohol level ordred due to hiccups and pt hx of etoh abuse - P resumptive negative Continue other supportive care/management per primary teams. Thank you for this consultation, we will follow along with you. Patient seen in conjunction with Dr. Damaris Crenshaw who agrees with the assessment and management of this patient. - Patient Problems (1) H/O ETOH abuse Current Visit: Yes Status: Acute (2) Acidosis Current Visit: Yes Status: Acute (3) Acute renal failure (ARF) Current Visit: Yes Status: Acute (4) Anemia Current Visit: Yes Status: Acute (5) Elevated troponin Current Visit: Yes Status: Acute (6) Epistaxis Current Visit: Yes Status: Acute (7) Hyperkalemia Current Visit: Yes Status: Acute (8) Melena Current Visit: Yes Status: Acute (9) SOB (shortness of breath) Current Visit: Yes Status: Acute (10) Sepsis Current Visit: Yes Status: Acute
--- NOTE | 2021-09-10 16:51 | Gastroenterology Consultation ---
History of Present Illness - Reason for Consult Consult date: 09/10/21 anemia Requesting physician: AMANDA MARSHALL - History of Present Illness The patient is a 61 yo aam with h/o ckd who presents with progressive sob, found to be in acute on chronic renal failure with emergent dialysis needs. Has had HD since admission, has had progressive sob, fatigue etc for a couple months. poor historian, at bedside. he has had intermittent epistaxis for a few weeks, most recently last night. gi consulted for anemia. no overt gi bleeding, denies abd pain. no prior h/o egd/colonoscopy. Past History Past Medical History: hypertension, renal failure Past Surgical History: No surgical history Social history: alcohol abuse Family history: hypertension Medications and Allergies Allergies Allergy/AdvReac Type Severity Reaction Status Date / Time No Known Allergies Allergy Unverified 01/17/17 01:04 Home Medications Medication Instructions Recorded Confirmed Last Taken Type Acetaminophen/Codeine [Tylenol #3] 1 tab PO Q6H PRN #7 tab 01/17/17 Unknown Rx Ibuprofen [Motrin] 600 mg PO Q8H PRN #15 tablet 01/17/17 Unknown Rx methOCARBAMOL [Robaxin TAB] 500 mg PO Q6H PRN #15 tablet 01/17/17 Unknown Rx Active Meds: Active Medications Acetaminophen (Acetaminophen 325 Mg Tab) 650 mg PO Q4H PRN PRN Reason: Pain MILD(1-3)/Fever >100.5/LOCO Pantoprazole Sodium 80 mg/ (Sodium Chloride) 100 mls @ 10 mls/hr IV DIRECT LENY Last Admin: 09/10/21 10:04 Dose: 8 mg/hr, 10 mls/hr Sodium Bicarbonate 150 meq/ (Dextrose) 1,150 mls @ 125 mls/hr IV DIRECT LENY Last Admin: 09/10/21 10:04 Dose: 125 mls/hr CALC GLUCONATE 1GM/NS 100 ML (Calcium Gluonate/Ns 1,000mg/100ml) 1 gm in 100 mls @ 300 mls/hr IV Q20MIN LENY Stop: 09/11/21 01:19 Metoclopramide HCl (Metoclopramide 10 Mg/2 Ml Inj) 10 mg IV Q6H PRN PRN Reason: Nausea And Vomiting Morphine Sulfate (Morphine 2 Mg/1 Ml Inj) 2 mg IV Q4H PRN PRN Reason: Pain, Moderate (4-6) Last Admin: 09/10/21 06:00 Dose: 2 mg Ondansetron HCl (Ondansetron 4 Mg/2 Ml Inj) 4 mg IV Q3H PRN PRN Reason: Nausea And Vomiting Last Admin: 09/10/21 05:50 Dose: 4 mg Sodium Chloride (Sodium Chloride 0.9% 10 Ml Flush Syringe) 10 ml IV BID LENY Last Admin: 09/10/21 09:19 Dose: 10 ml Sodium Chloride (Sodium Chloride 0.9% 10 Ml Flush Syringe) 10 ml IV PRN PRN PRN Reason: LINE FLUSH Reviewed/updated patient's home and current medications. Review of Systems - Review of Systems All systems: negative (per HPI) Exam - Constitutional Vital Signs: Temp Pulse Resp BP Pulse Ox 97.9 F 83 12 146/79 99 09/10/21 14:00 09/10/21 16:45 09/10/21 15:00 09/10/21 16:45 09/10/21 15:00 General appearance: no acute distress - EENT Eyes: PERRL - Respiratory Respiratory effort: normal Respiratory: bilateral: CTA - Cardiovascular Rhythm: regular Heart Sounds: Present: S1 & S2 - Gastrointestinal General gastrointestinal: Present: soft, non-tender - Neurologic Neurological: alert and oriented x3 - Labs CBC & Chem 7: 09/10/21 Unknown 09/10/21 Unknown Lab Results: Laboratory Results - last 24 hr 09/09/21 09/09/21 09/09/21 11:35 18:53 18:53 WBC 9.0 RBC 1.89 L Hgb 4.8 L* Hct 14.9 L* MCV 79 L MCH 25 L MCHC 32 RDW 14.1 Plt Count 321 Lymph % (Auto) 11.6 L [place] % (Auto) 6.7 Eos % (Auto) 0.2 Baso % (Auto) 0.2 Lymph # (Auto) 1.0 L [place] # (Auto) 0.6 Eos # (Auto) 0.0 Baso # (Auto) 0.0 Add Manual Diff Total Counted Seg Neutrophils % 81.3 H Seg Neuts % (Manual) Band Neutrophils % Lymphocytes % (Manual) Reactive Lymphs % (Man) Monocytes % (Manual) Eosinophils % (Manual) Basophils % (Manual) Metamyelocytes % Myelocytes % Promyelocytes % Blast Cells % Nucleated RBC % Seg Neutrophils # 7.3 Seg Neutrophils # Man Band Neutrophils # Lymphocytes # (Manual) Abs React Lymphs (Man) Monocytes # (Manual) Eosinophils # (Manual) Basophils # (Manual) Metamyelocytes # Myelocytes # Promyelocytes # Blast Cells # WBC Morphology Hypersegmented Neuts Hyposegmented Neuts Hypogranular Neuts Smudge Cells Toxic Granulation Toxic Vacuolation Dohle Bodies Pelger-Huet Anomaly Francisco Javier Rods Platelet Estimate Clumped Platelets Plt Clumps, EDTA Large Platelets Giant Platelets Platelet Satelliting Plt Morphology Comment RBC Morphology Dimorphic RBCs Polychromasia Hypochromasia Poikilocytosis Anisocytosis Microcytosis Macrocytosis Spherocytes Pappenheimer Bodies Sickle Cells Target Cells Tear Drop Cells Ovalocytes Stomatocytes Helmet Cells [place] Bodies Lena Rings Vika Cells Bite Cells Crenated Cell Elliptocytes Acanthocytes (Spur) Rouleaux Hemoglobin C Crystals Schistocytes Malaria parasites Jose Bodies Hem Pathologist Commnt PT 16.6 H INR 1.20 H D-Dimer 2203.38 H ABG pH ABG pCO2 ABG pO2 ABG HCO3 ABG O2 Saturation ABG O2 Content ABG Base Excess ABG Hemoglobin ABG Carboxyhemoglobin ABG Methemoglobin Oxyhemoglobin FiO2 Sodium Potassium Chloride Carbon Dioxide Anion Gap BUN Creatinine Estimated GFR BUN/Creatinine Ratio Glucose POC Glucose Lactic Acid Calcium Magnesium Total Bilirubin AST ALT Alkaline Phosphatase Ammonia Total Creatine Kinase CK-MB (CK-2) CK-MB (CK-2) Rel Index Troponin T C-Reactive Protein NT-Pro-B Natriuret Pep Total Protein Albumin Albumin/Globulin Ratio Triglycerides Cholesterol LDL Cholesterol Direct HDL Cholesterol Cholesterol/HDL Ratio Lipase Prostate Specific Ag Urine Color Straw Urine Turbidity Clear Urine pH 6.0 Ur Specific [place] 1.011 Urine Protein 100 mg/dl Urine Glucose (UA) 50 Urine Ketones Neg Urine Blood Mod Urine Nitrite Neg Urine Bilirubin Neg Urine Urobilinogen < 2.0 Ur Leukocyte Esterase Neg Urine WBC (Auto) 2.0 Urine RBC (Auto) 11.0 Urine Creatinine Protein/Creatinin Ratio Urine Total Protein Urine Opiates Screen Urine Methadone Screen Ur Barbiturates Screen Ur Phencyclidine Scrn Ur Amphetamines Screen U Benzodiazepines Scrn Urine Cocaine Screen U Marijuana (THC) Screen Drugs of Abuse Note Plasma/Serum Alcohol Hep Bs Antigen Hep B Core IgM Ab Hepatitis C Antibody Blood Type Antibody Screen Crossmatch 09/09/21 09/09/21 09/09/21 18:53 18:53 19:02 WBC RBC Hgb Hct MCV MCH MCHC RDW Plt Count Lymph % (Auto) [place] % (Auto) Eos % (Auto) Baso % (Auto) Lymph # (Auto) [place] # (Auto) Eos # (Auto) Baso # (Auto) Add Manual Diff Total Counted Seg Neutrophils % Seg Neuts % (Manual) Band Neutrophils % Lymphocytes % (Manual) Reactive Lymphs % (Man) Monocytes % (Manual) Eosinophils % (Manual) Basophils % (Manual) Metamyelocytes % Myelocytes % Promyelocytes % Blast Cells % Nucleated RBC % Seg Neutrophils # Seg Neutrophils # Man Band Neutrophils # Lymphocytes # (Manual) Abs React Lymphs (Man) Monocytes # (Manual) Eosinophils # (Manual) Basophils # (Manual) Metamyelocytes # Myelocytes # Promyelocytes # Blast Cells # WBC Morphology Hypersegmented Neuts Hyposegmented Neuts Hypogranular Neuts Smudge Cells Toxic Granulation Toxic Vacuolation Dohle Bodies Pelger-Huet Anomaly Francisco Javier Rods Platelet Estimate Clumped Platelets Plt Clumps, EDTA Large Platelets Giant Platelets Platelet Satelliting Plt Morphology Comment RBC Morphology Dimorphic RBCs Polychromasia Hypochromasia Poikilocytosis Anisocytosis Microcytosis Macrocytosis Spherocytes Pappenheimer Bodies Sickle Cells Target Cells Tear Drop Cells Ovalocytes Stomatocytes Helmet Cells [place] Bodies Lena Rings [place] Cells Bite Cells Crenated Cell Elliptocytes Acanthocytes (Spur) Rouleaux Hemoglobin C Crystals Schistocytes Malaria parasites Jose Bodies Hem Pathologist Commnt PT INR D-Dimer ABG pH ABG pCO2 ABG pO2 ABG HCO3 ABG O2 Saturation ABG O2 Content ABG Base Excess ABG Hemoglobin ABG Carboxyhemoglobin ABG Methemoglobin Oxyhemoglobin FiO2 Sodium 134 L Potassium 7.1 H* Chloride 83.4 L Carbon Dioxide 4 L* Anion Gap 54 BUN 238 H Creatinine 48.4 H Estimated GFR 1 BUN/Creatinine Ratio 5 Glucose 130 H POC Glucose Lactic Acid 2.80 H* Calcium 6.2 L Magnesium 2.90 H Total Bilirubin 0.30 AST 17 ALT 19 Alkaline Phosphatase 57 Ammonia 39.0 Total Creatine Kinase 1690 H CK-MB (CK-2) 21.4 H CK-MB (CK-2) Rel Index 1.2 Troponin T 0.175 H* C-Reactive Protein 1.50 H NT-Pro-B Natriuret Pep 6011 H Total Protein 7.4 Albumin 4.2 Albumin/Globulin Ratio 1.3 Triglycerides 177 H Cholesterol 170 LDL Cholesterol Direct 107 HDL Cholesterol 28 L Cholesterol/HDL Ratio 6.07 Lipase 1198 H Prostate Specific Ag Urine Color Urine Turbidity Urine pH Ur Specific [place] Urine Protein Urine Glucose (UA) Urine Ketones Urine Blood Urine Nitrite Urine Bilirubin Urine Urobilinogen Ur Leukocyte Esterase Urine WBC (Auto) Urine RBC (Auto) Urine Creatinine Protein/Creatinin Ratio Urine Total Protein Urine Opiates Screen Urine Methadone Screen Ur Barbiturates Screen Ur Phencyclidine Scrn Ur Amphetamines Screen U Benzodiazepines Scrn Urine Cocaine Screen U Marijuana (THC) Screen Drugs of Abuse Note Plasma/Serum Alcohol Hep Bs Antigen Hep B Core IgM Ab Hepatitis C Antibody Blood Type Antibody Screen Crossmatch 09/09/21 09/09/21 09/09/21 20:10 20:49 20:55 WBC RBC Hgb Hct MCV MCH MCHC RDW Plt Count Lymph % (Auto) [place] % (Auto) Eos % (Auto) Baso % (Auto) Lymph # (Auto) [place] # (Auto) Eos # (Auto) Baso # (Auto) Add Manual Diff Total Counted Seg Neutrophils % Seg Neuts % (Manual) Band Neutrophils % Lymphocytes % (Manual) Reactive Lymphs % (Man) Monocytes % (Manual) Eosinophils % (Manual) Basophils % (Manual) Metamyelocytes % Myelocytes % Promyelocytes % Blast Cells % Nucleated RBC % Seg Neutrophils # Seg Neutrophils # Man Band Neutrophils # Lymphocytes # (Manual) Abs React Lymphs (Man) Monocytes # (Manual) Eosinophils # (Manual) Basophils # (Manual) Metamyelocytes # Myelocytes # Promyelocytes # Blast Cells # WBC Morphology Hypersegmented Neuts Hyposegmented Neuts Hypogranular Neuts Smudge Cells Toxic Granulation Toxic Vacuolation Dohle Bodies Pelger-Huet Anomaly Francisco Javier Rods Platelet Estimate Clumped Platelets Plt Clumps, EDTA Large Platelets Giant Platelets Platelet Satelliting Plt Morphology Comment RBC Morphology Dimorphic RBCs Polychromasia Hypochromasia Poikilocytosis Anisocytosis Microcytosis Macrocytosis Spherocytes Pappenheimer Bodies Sickle Cells Target Cells Tear Drop Cells Ovalocytes Stomatocytes Helmet Cells [place] Bodies Lena Rings [place] Cells Bite Cells Crenated Cell Elliptocytes Acanthocytes (Spur) Rouleaux Hemoglobin C Crystals Schistocytes Malaria parasites Jose Bodies Hem Pathologist Commnt PT INR D-Dimer ABG pH ABG pCO2 ABG pO2 ABG HCO3 ABG O2 Saturation ABG O2 Content ABG Base Excess ABG Hemoglobin ABG Carboxyhemoglobin ABG Methemoglobin Oxyhemoglobin FiO2 Sodium Potassium Chloride Carbon Dioxide Anion Gap BUN Creatinine Estimated GFR BUN/Creatinine Ratio Glucose POC Glucose Lactic Acid 2.10 H* Calcium Magnesium Total Bilirubin AST ALT Alkaline Phosphatase Ammonia Total Creatine Kinase CK-MB (CK-2) CK-MB (CK-2) Rel Index Troponin T C-Reactive Protein NT-Pro-B Natriuret Pep Total Protein Albumin Albumin/Globulin Ratio Triglycerides Cholesterol LDL Cholesterol Direct HDL Cholesterol Cholesterol/HDL Ratio Lipase Prostate Specific Ag Urine Color Urine Turbidity Urine pH Ur Specific [place] Urine Protein Urine Glucose (UA) Urine Ketones Urine Blood Urine Nitrite Urine Bilirubin Urine Urobilinogen Ur Leukocyte Esterase Urine WBC (Auto) Urine RBC (Auto) Urine Creatinine Protein/Creatinin Ratio Urine Total Protein Urine Opiates Screen Urine Methadone Screen Ur Barbiturates Screen Ur Phencyclidine Scrn Ur Amphetamines Screen U Benzodiazepines Scrn Urine Cocaine Screen U Marijuana (THC) Screen Drugs of Abuse Note Plasma/Serum Alcohol Hep Bs Antigen Non-reactive Hep B Core IgM Ab Non-reactive Hepatitis C Antibody Non-reactive Blood Type O POSITIVE Antibody Screen Negative Crossmatch See Detail 09/09/21 09/09/21 09/10/21 21:00 23:25 07:35 WBC RBC Hgb Hct MCV MCH MCHC RDW Plt Count Lymph % (Auto) [place] % (Auto) Eos % (Auto) Baso % (Auto) Lymph # (Auto) [place] # (Auto) Eos # (Auto) Baso # (Auto) Add Manual Diff Total Counted Seg Neutrophils % Seg Neuts % (Manual) Band Neutrophils % Lymphocytes % (Manual) Reactive Lymphs % (Man) Monocytes % (Manual) Eosinophils % (Manual) Basophils % (Manual) Metamyelocytes % Myelocytes % Promyelocytes % Blast Cells % Nucleated RBC % Seg Neutrophils # Seg Neutrophils # Man Band Neutrophils # Lymphocytes # (Manual) Abs React Lymphs (Man) Monocytes # (Manual) Eosinophils # (Manual) Basophils # (Manual) Metamyelocytes # Myelocytes # Promyelocytes # Blast Cells # WBC Morphology Hypersegmented Neuts Hyposegmented Neuts Hypogranular Neuts Smudge Cells Toxic Granulation Toxic Vacuolation Dohle Bodies Pelger-Huet Anomaly Francisco Javier Rods Platelet Estimate Clumped Platelets Plt Clumps, EDTA Large Platelets Giant Platelets Platelet Satelliting Plt Morphology Comment RBC Morphology Dimorphic RBCs Polychromasia Hypochromasia Poikilocytosis Anisocytosis Microcytosis Macrocytosis Spherocytes Pappenheimer Bodies Sickle Cells Target Cells Tear Drop Cells Ovalocytes Stomatocytes Helmet Cells [place] Bodies Lena Rings Vika Cells Bite Cells Crenated Cell Elliptocytes Acanthocytes (Spur) Rouleaux Hemoglobin C Crystals Schistocytes Malaria parasites Jose Bodies Hem Pathologist Commnt PT INR D-Dimer ABG pH 7.100 L* ABG pCO2 20.0 ABG pO2 60.9 L ABG HCO3 6.1 L ABG O2 Saturation 81.1 L ABG O2 Content 4.8 ABG Base Excess -21.5 L ABG Hemoglobin 5.0 L ABG Carboxyhemoglobin 1.3 ABG Methemoglobin 0.5 Oxyhemoglobin 79.7 L FiO2 28 Sodium 138 Potassium 5.0 D Chloride 95.5 L Carbon Dioxide 6 L* Anion Gap 42 BUN 232 H Creatinine 43.0 H Estimated GFR 1 BUN/Creatinine Ratio 5 Glucose 61 L POC Glucose 147 H Lactic Acid Calcium 4.7 L* D Magnesium Total Bilirubin AST ALT Alkaline Phosphatase Ammonia Total Creatine Kinase Cancelled CK-MB (CK-2) CK-MB (CK-2) Rel Index Troponin T C-Reactive Protein NT-Pro-B Natriuret Pep Total Protein Albumin Albumin/Globulin Ratio Triglycerides Cholesterol LDL Cholesterol Direct HDL Cholesterol Cholesterol/HDL Ratio Lipase Prostate Specific Ag Urine Color Urine Turbidity Urine pH Ur Specific [place] Urine Protein Urine Glucose (UA) Urine Ketones Urine Blood Urine Nitrite Urine Bilirubin Urine Urobilinogen Ur Leukocyte Esterase Urine WBC (Auto) Urine RBC (Auto) Urine Creatinine Protein/Creatinin Ratio Urine Total Protein Urine Opiates Screen Urine Methadone Screen Ur Barbiturates Screen Ur Phencyclidine Scrn Ur Amphetamines Screen U Benzodiazepines Scrn Urine Cocaine Screen U Marijuana (THC) Screen Drugs of Abuse Note Plasma/Serum Alcohol Hep Bs Antigen Hep B Core IgM Ab Hepatitis C Antibody Blood Type Antibody Screen Crossmatch 09/10/21 09/10/21 09/10/21 11:35 11:35 11:35 WBC RBC Hgb Hct MCV MCH MCHC RDW Plt Count Lymph % (Auto) [place] % (Auto) Eos % (Auto) Baso % (Auto) Lymph # (Auto) [place] # (Auto) Eos # (Auto) Baso # (Auto) Add Manual Diff Total Counted Seg Neutrophils % Seg Neuts % (Manual) Band Neutrophils % Lymphocytes % (Manual) Reactive Lymphs % (Man) Monocytes % (Manual) Eosinophils % (Manual) Basophils % (Manual) Metamyelocytes % Myelocytes % Promyelocytes % Blast Cells % Nucleated RBC % Seg Neutrophils # Seg Neutrophils # Man Band Neutrophils # Lymphocytes # (Manual) Abs React Lymphs (Man) Monocytes # (Manual) Eosinophils # (Manual) Basophils # (Manual) Metamyelocytes # Myelocytes # Promyelocytes # Blast Cells # WBC Morphology Hypersegmented Neuts Hyposegmented Neuts Hypogranular Neuts Smudge Cells Toxic Granulation Toxic Vacuolation Dohle Bodies Pelger-Huet Anomaly Francisco Javier Rods Platelet Estimate Clumped Platelets Plt Clumps, EDTA Large Platelets Giant Platelets Platelet Satelliting Plt Morphology Comment RBC Morphology Dimorphic RBCs Polychromasia Hypochromasia Poikilocytosis Anisocytosis Microcytosis Macrocytosis Spherocytes Pappenheimer Bodies Sickle Cells Target Cells Tear Drop Cells Ovalocytes Stomatocytes Helmet Cells [place] Bodies Lena Rings [place] Cells Bite Cells Crenated Cell Elliptocytes Acanthocytes (Spur) Rouleaux Hemoglobin C Crystals Schistocytes Malaria parasites Jose Bodies Hem Pathologist Commnt PT INR D-Dimer ABG pH ABG pCO2 ABG pO2 ABG HCO3 ABG O2 Saturation ABG O2 Content ABG Base Excess ABG Hemoglobin ABG Carboxyhemoglobin ABG Methemoglobin Oxyhemoglobin FiO2 Sodium Potassium Chloride Carbon Dioxide Anion Gap BUN Creatinine Estimated GFR BUN/Creatinine Ratio Glucose POC Glucose Lactic Acid Calcium Magnesium Total Bilirubin AST ALT Alkaline Phosphatase Ammonia Total Creatine Kinase CK-MB (CK-2) CK-MB (CK-2) Rel Index Troponin T C-Reactive Protein NT-Pro-B Natriuret Pep Total Protein Albumin Albumin/Globulin Ratio Triglycerides Cholesterol LDL Cholesterol Direct HDL Cholesterol Cholesterol/HDL Ratio Lipase Prostate Specific Ag Urine Color Urine Turbidity Urine pH Ur Specific [place] Urine Protein Urine Glucose (UA) Urine Ketones Urine Blood Urine Nitrite Urine Bilirubin Urine Urobilinogen Ur Leukocyte Esterase Urine WBC (Auto) Urine RBC (Auto) Urine Creatinine 112.8 H Protein/Creatinin Ratio 1.78 Urine Total Protein 201 H Urine Opiates Screen Presumptive negative Urine Methadone Screen Presumptive negative Ur Barbiturates Screen Presumptive negative Ur Phencyclidine Scrn Presumptive negative Ur Amphetamines Screen Presumptive negative U Benzodiazepines Scrn Presumptive negative Urine Cocaine Screen Presumptive negative U Marijuana (THC) Screen Presumptive negative Drugs of Abuse Note Disclamer Plasma/Serum Alcohol < 0.01 Hep Bs Antigen Hep B Core IgM Ab Hepatitis C Antibody Blood Type Antibody Screen Crossmatch 09/10/21 09/10/21 09/10/21 Unknown Unknown Unknown WBC 7.9 RBC 3.01 L Hgb 8.3 L D Hct 24.5 L D MCV 81 L MCH 28 MCHC 34 RDW 15.9 H Plt Count 176 Lymph % (Auto) [place] % (Auto) Eos % (Auto) Baso % (Auto) Lymph # (Auto) [place] # (Auto) Eos # (Auto) Baso # (Auto) Add Manual Diff Complete Total Counted 100 Seg Neutrophils % Dukey Rider Seg Neuts % (Manual) 92.0 H Band Neutrophils % 0 Lymphocytes % (Manual) 3.0 L Reactive Lymphs % (Man) 0 Monocytes % (Manual) 5.0 Eosinophils % (Manual) 0 Basophils % (Manual) 0 Metamyelocytes % 0 Myelocytes % 0 Promyelocytes % 0 Blast Cells % 0 Nucleated RBC % 1.0 H Seg Neutrophils # Seg Neutrophils # Man 7.3 Band Neutrophils # 0.0 Lymphocytes # (Manual) 0.2 L Abs React Lymphs (Man) 0.0 Monocytes # (Manual) 0.4 Eosinophils # (Manual) 0.0 Basophils # (Manual) 0.0 Metamyelocytes # 0.0 Myelocytes # 0.0 Promyelocytes # 0.0 Blast Cells # 0.0 WBC Morphology Not Reportable Hypersegmented Neuts Not Reportable Hyposegmented Neuts 1+ Hypogranular Neuts Not Reportable Smudge Cells Not Reportable Toxic Granulation Not Reportable Toxic Vacuolation Not Reportable Dohle Bodies Not Reportable Pelger-Huet Anomaly Not Reportable Francisco Javier Rods Not Reportable Platelet Estimate Consistent w auto Clumped Platelets Not Reportable Plt Clumps, EDTA Not Reportable Large Platelets Not Reportable Giant Platelets Not Reportable Platelet Satelliting Not Reportable Plt Morphology Comment Not Reportable RBC Morphology Not Reportable Dimorphic RBCs Not Reportable Polychromasia Not Reportable Hypochromasia 1+ Poikilocytosis Few Anisocytosis Not Reportable Microcytosis Not Reportable Macrocytosis Not Reportable Spherocytes Not Reportable Pappenheimer Bodies Not Reportable Sickle Cells Not Reportable Target Cells Rare Tear Drop Cells Not Reportable Ovalocytes Not Reportable Stomatocytes Rare Helmet Cells Not Reportable [place] Bodies Not Reportable Lena Rings Not Reportable [place] Cells Not Reportable Bite Cells Not Reportable Crenated Cell Not Reportable Elliptocytes Not Reportable Acanthocytes (Spur) Not Reportable Rouleaux Not Reportable Hemoglobin C Crystals Not Reportable Schistocytes Not Reportable Malaria parasites Not Reportable Jose Bodies Not Reportable Hem Pathologist Commnt No PT INR D-Dimer ABG pH ABG pCO2 ABG pO2 ABG HCO3 ABG O2 Saturation ABG O2 Content ABG Base Excess ABG Hemoglobin ABG Carboxyhemoglobin ABG Methemoglobin Oxyhemoglobin FiO2 Sodium 141 Potassium 3.2 L D Chloride 94.6 L Carbon Dioxide 20 L D Anion Gap 30 BUN 108 H Creatinine 21.1 H D Estimated GFR 3 BUN/Creatinine Ratio 5 Glucose 146 H POC Glucose Lactic Acid Calcium 7.1 L D Magnesium Total Bilirubin AST ALT Alkaline Phosphatase Ammonia Total Creatine Kinase 1530 H CK-MB (CK-2) CK-MB (CK-2) Rel Index Troponin T C-Reactive Protein NT-Pro-B Natriuret Pep Total Protein Albumin Albumin/Globulin Ratio Triglycerides Cholesterol LDL Cholesterol Direct HDL Cholesterol Cholesterol/HDL Ratio Lipase Prostate Specific Ag 5.18 H Urine Color Urine Turbidity Urine pH Ur Specific [place] Urine Protein Urine Glucose (UA) Urine Ketones Urine Blood Urine Nitrite Urine Bilirubin Urine Urobilinogen Ur Leukocyte Esterase Urine WBC (Auto) Urine RBC (Auto) Urine Creatinine Protein/Creatinin Ratio Urine Total Protein Urine Opiates Screen Urine Methadone Screen Ur Barbiturates Screen Ur Phencyclidine Scrn Ur Amphetamines Screen U Benzodiazepines Scrn Urine Cocaine Screen U Marijuana (THC) Screen Drugs of Abuse Note Plasma/Serum Alcohol Hep Bs Antigen Hep B Core IgM Ab Hepatitis C Antibody Blood Type Antibody Screen Crossmatch Assessment and Plan 1. Profound anemia - unclear recent baseline, suspect primarily due to anemia of chronic disease/renal failure. no obvious overt gi bleeding signs. he has had epistaxis today, unclear how much this could be contributing to anemia. likely will have dark stools from ingested blood related to nose blood. no urgent indication for gi work-up for anemia at present time while other acute medical issues are being addressed. will follow.
[2021-09-11] MEDS ORDERED: LIDOCAINE 2% UROJECT 10 ML JELLY ONE (00:24)
[2021-09-11] MEDS: ONDANSETRON 4 MG/2 ML INJ IV PRN (03:43)
[2021-09-11] MEDS: SODIUM BICARBONATE 150 MEQ in DEXTROSE 5% IN WATER 1,000 ML IV SCH (03:44)
[2021-09-11 06:46] LABS: Basophils % (Auto) 0.3 % (0.0-1.8); Eosinophils % (Auto) 0.1 % (0.0-4.3); Hematocrit 25.6 % (35.5-45.6); Hemoglobin 8.4 gm/dl (11.8-15.2); Lymphocytes # (Auto) 0.3 K/mm3 (1.2-5.4); Lymphocytes % (Auto) 4.6 % (13.4-35.0); Mean Corpuscular HGB Conc 33 % (32-34); Mean Corpuscular Volume 83 fl (84-94); Monocytes # (Auto) 0.7 K/mm3 (0.0-0.8); Monocytes % (Auto) 9.2 % (0.0-7.3); Platelet Count 167 K/mm3 (140-440); Red Blood Count 3.07 M/mm3 (3.65-5.03); Red Cell Distribution Width 15.4 % (13.2-15.2)
[2021-09-11 07:06] LABS: Calcium 6.7 mg/dL (8.4-10.2)
--- NOTE | 2021-09-11 10:40 | Progress Note ---
Assessment and Plan Assessment NSTEMI, likely type II in the setting of acute renal failure Acute HFrEF (ef 45-50%) Anemia- s/p 4 units PRBC. On protonix gtt. Acute renal failure, requiring emergent HD - 2/2 obstructive uropathy Shortness of breath/Hypoxemia Hypertension Epistaxis Hx of ETOH abuse (son reports father quit drinking appox 6 months ago but used to drink 1-2 glasses of liquor per day) Cardiographics EKG: SR, prolonged QT interval; No acute ischemic changes, rate 84 CXR 09/09/2021: No acute findings Echocardiogram: There is mild global hypokinesis of the left ventricle. LVEF is 45-50%; Mild diastolic dysfunction is present (impaired relaxation pattern). Recommendations/plan NSTEMI, likely type II in setting of ARF. Troponin mildly elevated, but has downtrended. Patient appears euvolemic on exam. Echo with mild reduction in EF (45-50%) GDMT: No ACEi/ARB/ARNi in setting of renal failure. Hold off on statin for now w ith elevated lipase; Start Coreg 3.125 PO BID. No asa due to anemia/bleeding. Eventual ischemic evaluation; await improvement in clinical condition. Continuous telemetry monitoring. Electrolyte and fluid management per renal. BMP in am. Strict I&O. Continue other supportive care/management per primary teams. Primary team may consider hematology consult with unknown etiology of bleeding Patient seen in conjunction with Dr. Damaris Crenshaw who agrees with the assessment and management of this patient. - Patient Problems (1) H/O ETOH abuse Current Visit: Yes Status: Acute (2) Acidosis Current Visit: Yes Status: Acute (3) Acute renal failure (ARF) Current Visit: Yes Status: Acute (4) Anemia Current Visit: Yes Status: Acute (5) Elevated troponin Current Visit: Yes Status: Acute (6) Epistaxis Current Visit: Yes Status: Acute (7) Hyperkalemia Current Visit: Yes Status: Acute (8) Melena Current Visit: Yes Status: Acute (9) SOB (shortness of breath) Current Visit: Yes Status: Acute (10) Sepsis Current Visit: Yes Status: Acute Subjective Date of service: 09/11/21 Principal diagnosis: anemia, acute kidney failure Interval history: Patient seen and examined today in the IMCU pain. He has significantly improved today, alert and oriented x4. Patient states he is feeling much better, but states that he has never had any medical problems nor has he ever been treated for any. He states he has always been healthy until now. 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 He further states he could have possibly had COVID several months ago, as he has not vaccinated. Telemetry: Sinus rhythm 80s Intake & Output 09/10/21 09/11/21 09/11/21 23:59 07:59 15:59 Intake Total 1250 941.667 Output Total 600 Balance 1250 341.667 Objective Vital Signs Temp Pulse Pulse Resp BP Pulse Ox Pulse Ox 09/11/21 08:30 79 12 157/92 98 09/11/21 08:00 81 13 147/88 97 09/11/21 07:30 81 13 140/87 96 09/11/21 07:00 83 14 151/89 95 09/11/21 06:30 83 19 133/82 96 09/11/21 06:00 83 13 140/86 96 09/11/21 05:30 75 11 L 165/86 98 09/11/21 05:01 82 12 164/92 97 09/11/21 04:30 81 15 163/97 97 09/11/21 04:00 84 84 13 160/95 97 09/11/21 03:40 99.4 F 09/11/21 03:30 83 15 160/87 97 09/11/21 03:01 85 13 163/93 95 09/11/21 02:31 89 17 140/95 98 09/11/21 02:15 81 10 L 155/92 95 09/11/21 01:45 101 H 20 133/83 99 09/11/21 01:30 82 13 133/83 99 09/11/21 01:15 84 13 134/81 99 09/11/21 01:00 83 13 132/81 99 09/11/21 00:30 84 13 138/84 99 09/11/21 00:15 84 09/11/21 00:00 98.2 F 86 86 24 131/80 98 09/10/21 23:36 88 22 145/81 99 09/10/21 23:30 84 30 H 145/81 99 09/10/21 23:00 77 21 163/87 98 09/10/21 22:00 84 11 L 184/97 98 09/10/21 21:30 84 84 24 176/95 98 09/10/21 21:00 87 13 181/94 99 09/10/21 20:30 88 15 183/97 98 09/10/21 20:00 98.6 F 89 14 165/135 98 09/10/21 19:50 92 H 09/10/21 19:30 90 14 203/104 100 09/10/21 19:00 88 11 L 185/95 99 09/10/21 18:30 85 12 181/97 99 09/10/21 18:00 91 H 13 168/99 99 09/10/21 17:15 98.0 F 98 H 14 184/90 99 09/10/21 17:00 134 H 21 146/79 98 09/10/21 16:45 83 146/79 09/10/21 16:30 85 143/82 09/10/21 16:15 84 143/84 09/10/21 16:00 82 14 152/86 100 09/10/21 15:45 80 164/89 09/10/21 15:30 87 159/91 09/10/21 15:15 85 169/95 09/10/21 15:00 97 H 12 187/106 99 09/10/21 14:45 93 H 151/93 09/10/21 14:30 91 H 174/93 09/10/21 14:15 89 177/91 09/10/21 14:00 97.9 F 94 H 12 185/90 98 99 09/10/21 13:00 90 10 L 186/96 99 09/10/21 12:00 85 13 188/96 99 09/10/21 11:00 83 12 174/90 98 - Physical Examination General: Appears Well, No Apparent Distress HEENT: Positive: Normocephaly Neck: Positive: trachea midline Cardiac: Positive: Reg Rate and Rhythm Lungs: Positive: Normal Exam Neuro: Positive: Grossly Intact Abdomen: Positive: Soft, Active Bowel Sounds Skin: Negative: Rash Extremities: Absent: edema - Labs and Meds CBC 09/11/21 Range/Units 05:55 WBC 7.5 (4.5-11.0) K/mm3 RBC 3.07 L (3.65-5.03) M/mm3 Hgb 8.4 L (11.8-15.2) gm/dl Hct 25.6 L (35.5-45.6) % Plt Count 167 (140-440) K/mm3 Lymph # (Auto) 0.3 L (1.2-5.4) K/mm3 Bell # (Auto) 0.7 (0.0-0.8) K/mm3 Eos # (Auto) 0.0 (0.0-0.4) K/mm3 Baso # (Auto) 0.0 (0.0-0.1) K/mm3 Comprehensive Metabolic Panel 09/11/21 Range/Units 05:55 Sodium 141 (137-145) mmol/L Potassium 3.6 (3.6-5.0) mmol/L Chloride 94.3 L (98-107) mmol/L Carbon Dioxide 34 H D (22-30) mmol/L BUN 53 H (9-20) mg/dL Creatinine 12.8 H (0.8-1.3) mg/dL Glucose 121 H (75-100) mg/dL Calcium 6.7 L (8.4-10.2) mg/dL - Imaging and Cardiology EKG: report reviewed Echo: report reviewed (ef 45-50%, mild diastolic dysfunction) - Telemetry EKG Rhythm: Sinus Rhythm - EKG Sinus rhythms and dysrhythmias: sinus rhythm (prolonged AT interval; no acute ishemic changes)
--- NOTE | 2021-09-11 10:49 | Progress Note ---
Assessment and Plan Assessment and plan: History of present illness: 61 years old male with past medical history of chronic kidney disease was brought to the hospital because of progressive shortness of breath as stated with vomiting and bleeding from nose for 1 day. Patient is a very poor historian. In the emergency room patient is found to have hemoglobin of 4.8 and hematocrit 14.9 also patient is found to have potassium of 7.1, bicarb 4, anion gap 54, BUN to 38 and creatinine 48.4, lactic acid 2.80. ABG shows pH 7.100, PCO2 20+0, PO2 60.9, bicarb 6.1 Subsequently Case was discussed with on-call GI doctor as well as nephrology who will do the hemodialysis immediately. We also put the patient on IMCU putting on bicarb drip, Protonix drip giving blood transfusion and consult critical care evaluation Hospital Course: 09/10: Improved on bedside encounter. Urology placed león catheter. Plan for nephrology to complete HD today. Hgb improved to 8.3, suspect anemia is purely from epistaxis, unclear if there was truly was a GI source. Will continue to monitor for other source of bleed. GI consulted, will follow recommendations. 09/11: hemoglobin stable. patient on encounter states he had recurrent epistaxis bleed leading up to hospitalization. Hgb stable this AM. Renal indices improved on bmp. Urine output 1000 cc yesterday. Troponin downtrending. D/w Dr. Juan A Martin, will d/c protonix IV, start on protonix 40 mg po bid. Transfer to floor bed. Assessment and Plan: #Acute kidney injury due to post renal obstruction #Metabolic Acidosis #Lactic Acidosis #Hyperkalemia #Uremia #Urinary retention #Prostateamegaly - BUN to 38 and creatinine 48.4 -ABG pH 7.100, PCO2 20.0, PO2 60.9, bicarb 6.1 - K: 7.1, subsequently 3.2 - LA: 2.8->2.1 -nephrology consultation - urology called for león placement - noted prostatamegaly on ctap, ordered psa elevated to 5.18 - monitor electrolytes on serial renal profile - strict I/O, close UOP monitoring - avoid nephrotoxins, renally adjust medications - bicarb gtt to be continued per nephrology direction #Acute hypoxic respiratory failure (resolved) - O2 sat as low as 56% on admission, currently on nasal cannula satting 98%, not in respiratory distress - shortness of breath likely driven by severe anemia - cxr: no acute findings. - pulmonology following #Acute metabolic encephalopathy (resolved) - likely due to uremia - improving #Blood loss anemia s/p 4 units prbc (stable) #Epistaxis (appears resolved) - hx of recurrent epistaxis per son, patient had increased uncontrolled bleeding for 1 day. No prior hx of GI bleed or reported blood in stool. Uremia could have precipitated bleed. - Hgb: 4.8 on admission, s/p 4 units prbc, now 8's - transfuse prn Hgb< 7. - GI consulted due to concern for GI bleed on admission - protonix gtt, start protonix 40 mg po bid - unclear if this is truly GI source, will defer to gastroenterology, D/w Dr. Juan A Martin #Type II myocardial infarction - supply demand from anemia in the setting TIFFANIE - serial troponins ordered, downtrending. -cardiology following #Sepsis ruled out, doubt infectious etiology. The high probability of a clinically significant, sudden or life threatening deterioration of the [multi] system(s) required my full and direct attention, intervention and personal management. The aggregate critical care time was [60] minutes. This time is in addition to time spent performing reported procedures but includes the following: [x] Data Review and interpretation [x] Patient assessment and monitoring of vital signs [x] Documentation [x] Medication orders and management History Interval history: NO acute complaints this Am on encounter. Patient is more alert today and thus I explained to him everything that transpired since patient was admitted. Patient states that he has been having recurrent episodes of epistaxis. He had not gotten it evaluated but stated that this was a daily occurrence prior to admission. Today the patient states he is feeling well has no acute complaints. Hospitalist Physical - Physical exam Narrative exam: General appearance: Present: no acute distress, well-nourished, resting comfortably. NC in place. drowsy - EENT Eyes: Present: PERRL ENT: hearing intact, clear oral mucosa - Neck Neck: Present: supple, normal ROM - Respiratory Respiratory effort: normal Respiratory: bilateral: diminished - Cardiovascular Heart Sounds: Present: S1 & S2. Absent: rub, click - Extremities Extremities: pulses symmetrical, No edema Peripheral Pulses: within normal limits - Abdominal General gastrointestinal: Present: soft, non-tender, non-distended, normal bowel sounds Male genitourinary: Present: normal - Integumentary Integumentary: Present: clear, warm, dry - Musculoskeletal Musculoskeletal: gait normal, strength equal bilaterally - Psychiatric Psychiatric: appropriate mood/affect, intact judgment & insight - Neurologic Neurologic: CNII-XII intact, moves all extremities - Constitutional Vitals: Temp Pulse Resp BP Pulse Ox 99.4 F 79 12 157/92 98 09/11/21 03:40 09/11/21 08:30 09/11/21 08:30 09/11/21 08:30 09/11/21 08:30 General appearance: Present: no acute distress HEART Score - HEART Score Troponin: Troponin T 0.158 ng/mL (0.00-0.029) H* 09/10/21 Unknown Results - Labs CBC & Chem 7: 09/11/21 05:55 09/11/21 05:55 Labs: Laboratory Last Values WBC 7.5 K/mm3 (4.5-11.0) 09/11/21 05:55 RBC 3.07 M/mm3 (3.65-5.03) L 09/11/21 05:55 Hgb 8.4 gm/dl (11.8-15.2) L 09/11/21 05:55 Hct 25.6 % (35.5-45.6) L 09/11/21 05:55 MCV 83 fl (84-94) L 09/11/21 05:55 MCH 27 pg (28-32) L 09/11/21 05:55 MCHC 33 % (32-34) 09/11/21 05:55 RDW 15.4 % (13.2-15.2) H 09/11/21 05:55 Plt Count 167 K/mm3 (140-440) 09/11/21 05:55 Lymph % (Auto) 4.6 % (13.4-35.0) L 09/11/21 05:55 Ralls % (Auto) 9.2 % (0.0-7.3) H 09/11/21 05:55 Eos % (Auto) 0.1 % (0.0-4.3) 09/11/21 05:55 Baso % (Auto) 0.3 % (0.0-1.8) 09/11/21 05:55 Lymph # (Auto) 0.3 K/mm3 (1.2-5.4) L 09/11/21 05:55 [place]alls # (Auto) 0.7 K/mm3 (0.0-0.8) 09/11/21 05:55 Eos # (Auto) 0.0 K/mm3 (0.0-0.4) 09/11/21 05:55 Baso # (Auto) 0.0 K/mm3 (0.0-0.1) 09/11/21 05:55 Add Manual Diff Complete 09/10/21 Unknown Total Counted 100 09/10/21 Unknown Seg Neutrophils % 85.8 % (40.0-70.0) H 09/11/21 05:55 Seg Neuts % (Manual) 92.0 % (40.0-70.0) H 09/10/21 Unknown Band Neutrophils % 0 % 09/10/21 Unknown Lymphocytes % (Manual) 3.0 % (13.4-35.0) L 09/10/21 Unknown Reactive Lymphs % (Man) 0 % 09/10/21 Unknown Monocytes % (Manual) 5.0 % (0.0-7.3) 09/10/21 Unknown Eosinophils % (Manual) 0 % (0.0-4.3) 09/10/21 Unknown Basophils % (Manual) 0 % (0.0-1.8) 09/10/21 Unknown Metamyelocytes % 0 % 09/10/21 Unknown Myelocytes % 0 % 09/10/21 Unknown Promyelocytes % 0 % 09/10/21 Unknown Blast Cells % 0 % 09/10/21 Unknown Nucleated RBC % 1.0 % (0.0-0.9) H 09/10/21 Unknown Seg Neutrophils # 6.4 K/mm3 (1.8-7.7) 09/11/21 05:55 Seg Neutrophils # Man 7.3 K/mm3 (1.8-7.7) 09/10/21 Unknown Band Neutrophils # 0.0 K/mm3 09/10/21 Unknown Lymphocytes # (Manual) 0.2 K/mm3 (1.2-5.4) L 09/10/21 Unknown Abs React Lymphs (Man) 0.0 K/mm3 09/10/21 Unknown Monocytes # (Manual) 0.4 K/mm3 (0.0-0.8) 09/10/21 Unknown Eosinophils # (Manual) 0.0 K/mm3 (0.0-0.4) 09/10/21 Unknown Basophils # (Manual) 0.0 K/mm3 (0.0-0.1) 09/10/21 Unknown Metamyelocytes # 0.0 K/mm3 09/10/21 Unknown Myelocytes # 0.0 K/mm3 09/10/21 Unknown Promyelocytes # 0.0 K/mm3 09/10/21 Unknown Blast Cells # 0.0 K/mm3 09/10/21 Unknown WBC Morphology Not Reportable 09/10/21 Unknown Hypersegmented Neuts Not Reportable 09/10/21 Unknown Hyposegmented Neuts 1+ 09/10/21 Unknown Hypogranular Neuts Not Reportable 09/10/21 Unknown Smudge Cells Not Reportable 09/10/21 Unknown Toxic Granulation Not Reportable 09/10/21 Unknown Toxic Vacuolation Not Reportable 09/10/21 Unknown Dohle Bodies Not Reportable 09/10/21 Unknown Pelger-Huet Anomaly Not Reportable 09/10/21 Unknown Francisco Javier Rods Not Reportable 09/10/21 Unknown Platelet Estimate Consistent w auto 09/10/21 Unknown Clumped Platelets Not Reportable 09/10/21 Unknown Plt Clumps, EDTA Not Reportable 09/10/21 Unknown Large Platelets Not Reportable 09/10/21 Unknown Giant Platelets Not Reportable 09/10/21 Unknown Platelet Satelliting Not Reportable 09/10/21 Unknown Plt Morphology Comment Not Reportable 09/10/21 Unknown RBC Morphology Not Reportable 09/10/21 Unknown Dimorphic RBCs Not Reportable 09/10/21 Unknown Polychromasia Not Reportable 09/10/21 Unknown Hypochromasia 1+ 09/10/21 Unknown Poikilocytosis Few 09/10/21 Unknown Anisocytosis Not Reportable 09/10/21 Unknown Microcytosis Not Reportable 09/10/21 Unknown Macrocytosis Not Reportable 09/10/21 Unknown Spherocytes Not Reportable 09/10/21 Unknown Pappenheimer Bodies Not Reportable 09/10/21 Unknown Sickle Cells Not Reportable 09/10/21 Unknown Target Cells Rare 09/10/21 Unknown Tear Drop Cells Not Reportable 09/10/21 Unknown Ovalocytes Not Reportable 09/10/21 Unknown Stomatocytes Rare 09/10/21 Unknown Helmet Cells Not Reportable 09/10/21 Unknown [place] Bodies Not Reportable 09/10/21 Unknown Maceo Rings Not Reportable 09/10/21 Unknown [place] Cells Not Reportable 09/10/21 Unknown Bite Cells Not Reportable 09/10/21 Unknown Crenated Cell Not Reportable 09/10/21 Unknown Elliptocytes Not Reportable 09/10/21 Unknown Acanthocytes (Spur) Not Reportable 09/10/21 Unknown Rouleaux Not Reportable 09/10/21 Unknown Hemoglobin C Crystals Not Reportable 09/10/21 Unknown Schistocytes Not Reportable 09/10/21 Unknown Malaria parasites Not Reportable 09/10/21 Unknown Jose Bodies Not Reportable 09/10/21 Unknown Hem Pathologist Commnt No 09/10/21 Unknown PT 16.6 Sec. (12.2-14.9) H 09/09/21 18:53 INR 1.20 (0.87-1.13) H 09/09/21 18:53 D-Dimer 2203.38 ng/mlDDU (0-234) H 09/09/21 18:53 ABG pH 7.100 pH Units (7.350-7.450) L* 09/09/21 21:00 ABG pCO2 20.0 mm Hg 09/09/21 21:00 ABG pO2 60.9 mm Hg (80.0-90.0) L 09/09/21 21:00 ABG HCO3 6.1 mmol/L (20.0-26.0) L 09/09/21 21:00 ABG O2 Saturation 81.1 % (95.0-99.0) L 09/09/21 21:00 ABG O2 Content 4.8 (0.0-44) 09/09/21 21:00 ABG Base Excess -21.5 mmol/L (-2.0-3.0) L 09/09/21 21:00 ABG Hemoglobin 5.0 gm/dl (14.0-18.0) L 09/09/21 21:00 ABG Carboxyhemoglobin 1.3 % (0.0-5.0) 09/09/21 21:00 ABG Methemoglobin 0.5 % (0.0-1.5) 09/09/21 21:00 Oxyhemoglobin 79.7 % (95.0-99.0) L 09/09/21 21:00 FiO2 28 % 09/09/21 21:00 Sodium 141 mmol/L (137-145) 09/11/21 05:55 Potassium 3.6 mmol/L (3.6-5.0) 09/11/21 05:55 Chloride 94.3 mmol/L (98-107) L 09/11/21 05:55 Carbon Dioxide 34 mmol/L (22-30) H D 09/11/21 05:55 Anion Gap 16 mmol/L 09/11/21 05:55 BUN 53 mg/dL (9-20) H 09/11/21 05:55 Creatinine 12.8 mg/dL (0.8-1.3) H 09/11/21 05:55 Estimated GFR 5 ml/min 09/11/21 05:55 BUN/Creatinine Ratio 4 % 09/11/21 05:55 Glucose 121 mg/dL (75-100) H 09/11/21 05:55 POC Glucose 147 mg/dL (70-105) H 09/10/21 07:35 Lactic Acid 2.10 mmol/L (0.7-2.0) H* 09/09/21 20:49 Calcium 6.7 mg/dL (8.4-10.2) L 09/11/21 05:55 Phosphorus 6.00 mg/dL (2.5-4.5) H 09/11/21 05:55 Magnesium 1.70 mg/dL (1.7-2.3) 09/11/21 05:55 Total Bilirubin 0.30 mg/dL (0.1-1.2) 09/09/21 18:53 AST 17 units/L (5-40) 09/09/21 18:53 ALT 19 units/L (7-56) 09/09/21 18:53 Alkaline Phosphatase 57 units/L (35-129) 09/09/21 18:53 Ammonia 39.0 umol/L (25-60) 09/09/21 19:02 Total Creatine Kinase 1530 units/L (55-170) H 09/10/21 Unknown CK-MB (CK-2) 21.4 ng/mL (0.0-4.0) H 09/09/21 18:53 CK-MB (CK-2) Rel Index 1.2 (0-4) 09/09/21 18:53 Troponin T 0.158 ng/mL (0.00-0.029) H* 09/10/21 Unknown C-Reactive Protein 1.50 mg/dL (0.00-1.30) H 09/09/21 18:53 NT-Pro-B Natriuret Pep 6011 pg/mL (0-900) H 09/09/21 18:53 Total Protein 7.4 g/dL (6.3-8.2) 09/09/21 18:53 Albumin 4.2 g/dL (3.9-5) 09/09/21 18:53 Albumin/Globulin Ratio 1.3 % 09/09/21 18:53 Triglycerides 177 mg/dL (2-149) H 09/09/21 18:53 Cholesterol 170 mg/dL (50-199) 09/09/21 18:53 LDL Cholesterol Direct 107 mg/dL (50-130) 09/09/21 18:53 HDL Cholesterol 28 mg/dL (40-59) L 09/09/21 18:53 Cholesterol/HDL Ratio 6.07 % 09/09/21 18:53 Lipase 1198 units/L (13-60) H 09/09/21 18:53 Prostate Specific Ag 5.18 ng/mL (0.00-4.00) H 09/10/21 Unknown Urine Color Straw (Yellow) 09/09/21 11:35 Urine Turbidity Clear (Clear) 09/09/21 11:35 Urine pH 6.0 (5.0-7.0) 09/09/21 11:35 Ur Specific [place] 1.011 (1.003-1.030) 09/09/21 11:35 Urine Protein 100 mg/dl mg/dL (Negative) 09/09/21 11:35 Urine Glucose (UA) 50 mg/dL (Negative) 09/09/21 11:35 Urine Ketones Neg mg/dL (Negative) 09/09/21 11:35 Urine Blood Mod (Negative) 09/09/21 11:35 Urine Nitrite Neg (Negative) 09/09/21 11:35 Urine Bilirubin Neg (Negative) 09/09/21 11:35 Urine Urobilinogen < 2.0 mg/dL (<2.0) 09/09/21 11:35 Ur Leukocyte Esterase Neg (Negative) 09/09/21 11:35 Urine WBC (Auto) 2.0 /HPF (0.0-6.0) 09/09/21 11:35 Urine RBC (Auto) 11.0 /HPF (0.0-6.0) 09/09/21 11:35 Urine Creatinine 112.8 mg/dL (0.1-20.0) H 09/10/21 11:35 Protein/Creatinin Ratio 1.78 09/10/21 11:35 Urine Total Protein 201 mg/dL (5-11.8) H 09/10/21 11:35 Urine Opiates Screen Presumptive negative 09/10/21 11:35 Urine Methadone Screen Presumptive negative 09/10/21 11:35 Ur Barbiturates Screen Presumptive negative 09/10/21 11:35 Ur Phencyclidine Scrn Presumptive negative 09/10/21 11:35 Ur Amphetamines Screen Presumptive negative 09/10/21 11:35 U Benzodiazepines Scrn Presumptive negative 09/10/21 11:35 Urine Cocaine Screen Presumptive negative 09/10/21 11:35 U Marijuana (THC) Screen Presumptive negative 09/10/21 11:35 Drugs of Abuse Note Disclamer 09/10/21 11:35 Plasma/Serum Alcohol < 0.01 % (0-0.07) 09/10/21 11:35 Hep Bs Antigen Non-reactive (Negative) 09/09/21 20:55 Hep B Core IgM Ab Non-reactive (NonReactive) 09/09/21 20:55 Hepatitis C Antibody Non-reactive (NonReactive) 09/09/21 20:55 Blood Type O POSITIVE 09/09/21 20:10 Antibody Screen Negative 09/09/21 20:10 Crossmatch See Detail 09/09/21 20:10 León/IV: Voiding Method Indwelling Catheter Active Medications - Current Medications Current Medications: Generic Name Dose Route Start Last Admin Trade Name Freq PRN Reason Stop Dose Admin Acetaminophen 650 mg 09/09/21 20:24 Acetaminophen 325 Mg Tab PO Q4H PRN Pain MILD(1-3)/Fever >100.5/LOCO Pantoprazole Sodium 80 mg/ 100 mls @ 10 mls/hr 09/09/21 21:00 09/10/21 20:12 Sodium Chloride IV 8 mg/hr DIRECT LENY 10 mls/hr Administration 8 MG/HR Sodium Bicarbonate 150 meq/ 1,150 mls @ 125 mls/hr 09/09/21 21:00 09/11/21 03:44 Dextrose IV 125 mls/hr DIRECT LENY Administration Metoclopramide HCl 10 mg 09/09/21 20:24 Metoclopramide 10 Mg/2 Ml Inj IV Q6H PRN Nausea And Vomiting Morphine Sulfate 2 mg 09/09/21 20:24 09/10/21 06:00 Morphine 2 Mg/1 Ml Inj IV 2 mg Q4H PRN Administration Pain, Moderate (4-6) Ondansetron HCl 4 mg 09/09/21 20:24 09/11/21 03:43 Ondansetron 4 Mg/2 Ml Inj IV 4 mg Q3H PRN Administration Nausea And Vomiting Sodium Chloride 10 ml 09/09/21 22:00 09/11/21 09:15 Sodium Chloride 0.9% 10 Ml Flush Syringe IV 10 ml BID LENY Administration Sodium Chloride 10 ml 09/09/21 20:24 Sodium Chloride 0.9% 10 Ml Flush Syringe IV PRN PRN LINE FLUSH Nutrition/Malnutrition Assess - Dietary Evaluation Nutrition/Malnutrition Findings: Nutrition Notes Start: 09/10/21 15:32 Freq: Status: Active Protocol: Document 09/10/21 15:32 VANESSA (Rec: 09/10/21 16:25 VANESSA [id number]) Nutrition Notes Need for Assessment generated from: glass vial filler,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 Current Diet NPO (since 09/09 20:25). Labs/Tests 09/10: K 3.2, Cl 94.6, CO2 20, BUN 108, Crea 21.1, Glu 146, Ca 7.1. Pertinent Medications 09/10: Ca-Gluconate 1 g/ns 100 ml @ 300 ml/hr, others nutritionally unremarkable. Height 5 ft 8 in Weight 58.967 kg [place] Body Weight (kg) 70.00 BMI 19.8 Intake Prior to Admission Good Weight change and time frame Pt states having, unintentionally, loss between 14 and 23 lb recently. Weight Status Appropriate Subjective/Other Information RD consult for skin risk and risk of malnutrition assessments. Pt currently on NPO. I recommend advance to Renal Diet, when pertinent. Pt on Nasal Cannula, O2 saturation @ 95%, according to Physical Assessment History notes. Pt shows no signs of concern for skin risk at the time, according to Physical Assessment History notes. Pt shows no signs of concer for risk of malnutrition at the time, according to Physical Assessment History notes. Procedure on 09/09: R-IJ VasCath placement. Well tolerated, according to Procedure notes. Pt consition improved on 09/10 , León catheter placed, Hgb improved as anemia was associated to Epistaxis and no to tother source of GI bleed, according to Progress notes. Percent of energy/protein needs met: Pt currently on NPO. Prescribed Renal Diet provides for energy/protein needs (2, 072 Kcal/77 g) during LOS; additionally, Dietary Supplements will compensate for possible poor or insufficient PO intake of meals with 850 Kcal and 38 g of protein. Burn Absent Trauma Absent GI Symptoms None Food Allergy No Skin Integrity/Comment Assessment WNL. Current % PO Other Minimum of two criteria No Interpretation of Weight Loss (severe) >10% in 6 months Protein-Calorie Malnutrition N\A #1 Nutrition Diagnosis Increased nutrient needs ( specify in comment below) Comments: Protein to support blood replenishment. Will assess Pt's PO intake of meals and the eventual need for dietary supplementation at F/U. Etiology Significant loss of blood. As Evidenced by Signs and Symptoms Significant anemia lab values and long lasting Epistaxis Is patient on ventilator? No Is Patient Ambulatory and/or Out of Bed Yes REE-(Festus-St. or-ambulatory/OOB) [ [id number] [id number]] Calculation Used for Recommendations Festus-St or Additional Notes Protein: 1.2-2 g/Kg IBW; 84- 140 g/day. Fluids: 1 ml/Kcal, or as per MD. Nutrition Intervention Change Diet Order: When pertinent, advance to Renal Diet. Add Supplement/Snack (indicate name/kcal When pertinent, 8 fl oz Nepro /protein ) w/CARBSTEADY; BID. Provides kCal: 850 Provides Protein (gm) 38 Goal #1 Support, through dietary supplementation, hematological balance processes during LOS. Goal #2 Adjust the dietary intervention to better serve Pt's needs and clinical conditions during LOS. Goal #3 Maintain body weight within +/ -3% of admission body weight during LOS. Follow-Up By: 09/13/21 Additional Comments When pertinent, start monitoring food tolerance, %PO intake of meals, and BM.
[2021-09-11] MEDS: carvediloL 3.125 MG TAB PO SCH ×2 (11:00→23:05)
--- NOTE | 2021-09-11 11:18 | Progress Note ---
Assessment and Plan Assessment Severe renal failure secondary to obstructive uropathy Hyperkalemia Metabolic acidosis, now Alkalotic Uremia Acute Anemia Plan: Renal labs reviewed. Serum creatinine is 12.8 today with BUN down to 53 today, yesterday's serum creatinine was 21.1 and BUN was 108, UOP 1600 ml Patient was initiated on hemodialysis on 09/10/21 due to severe renal failure coupled with severe Hyperkalemia and Acidosis Patient received hemodialysis again yesterday on 09/10/21 without UF to treat Ur emic bleeding and Encephalopathy Hemodialysis again today for clearance mainly CT AP showed BL hydronephrosis and bladder scan was positive for urinary retention. Urology consulted and placed león and recommended Flomax and to call them for león catheter removal Flomax 0.8 mg po daily started today Monitor post obstructive diuresis closely, monitor K, Mg and Phos with close monitoring of hypotension Will stop bicarb drip as CO2 level today is 34 Start NS@ 75 ml/hr Renally dose medications Avoid nephrotoxic agents Strict I&O's daily Obtain daily weights Assess dialysis needs daily Continue to monitor renal function closely Plan of care reviewed by Dr. Gregory Subjective Date of service: 09/11/21 Principal diagnosis: anemia, acute kidney failure Interval history: Patient seen lying in bed. at bedside. Reviewed renal plan of care to include HD again today. Urine in león is bloody but nurse at bedside states it is clearing up and not as red as yesterday. Objective - Vital Signs Vital signs: Vital Signs - 12hr 09/10/21 09/10/21 09/11/21 23:30 23:36 00:00 Temperature 98.2 F Pulse Rate 84 88 86 Pulse Rate [ 86 From Monitor] Respiratory 30 H 22 24 Rate Blood Pressure 145/81 145/81 131/80 O2 Sat by Pulse 99 99 98 Oximetry 09/11/21 09/11/21 09/11/21 00:15 00:30 01:00 Temperature Pulse Rate 84 84 83 Pulse Rate [ From Monitor] Respiratory 13 13 Rate Blood Pressure 138/84 132/81 O2 Sat by Pulse 99 99 Oximetry 09/11/21 09/11/21 09/11/21 01:15 01:30 01:45 Temperature Pulse Rate 84 82 101 H Pulse Rate [ From Monitor] Respiratory 13 13 20 Rate Blood Pressure 134/81 133/83 133/83 O2 Sat by Pulse 99 99 99 Oximetry 09/11/21 09/11/21 09/11/21 02:15 02:31 03:01 Temperature Pulse Rate 81 89 85 Pulse Rate [ From Monitor] Respiratory 10 L 17 13 Rate Blood Pressure 155/92 140/95 163/93 O2 Sat by Pulse 95 98 95 Oximetry 09/11/21 09/11/21 09/11/21 03:30 03:40 04:00 Temperature 99.4 F Pulse Rate 83 84 Pulse Rate [ 84 From Monitor] Respiratory 15 13 Rate Blood Pressure 160/87 160/95 O2 Sat by Pulse 97 97 Oximetry 09/11/21 09/11/21 09/11/21 04:30 05:01 05:30 Temperature Pulse Rate 81 82 75 Pulse Rate [ From Monitor] Respiratory 15 12 11 L Rate Blood Pressure 163/97 164/92 165/86 O2 Sat by Pulse 97 97 98 Oximetry 09/11/21 09/11/21 09/11/21 06:00 06:30 07:00 Temperature Pulse Rate 83 83 83 Pulse Rate [ From Monitor] Respiratory 13 19 14 Rate Blood Pressure 140/86 133/82 151/89 O2 Sat by Pulse 96 96 95 Oximetry 09/11/21 09/11/21 09/11/21 07:30 08:00 08:30 Temperature Pulse Rate 81 81 79 Pulse Rate [ From Monitor] Respiratory 13 13 12 Rate Blood Pressure 140/87 147/88 157/92 O2 Sat by Pulse 96 97 98 Oximetry - General Appearance General appearance: well-developed, appears stated age, fatigue EENT: ATNC, PERRL, hearing intact, vision intact Neck: no JVD, supple Respiratory: Present: Decreased Breath Sounds Cardiology: S1S2 Gastrointestinal: normoactive bowel sounds Integumentary: warm and dry Neurologic: alert and oriented x3 Musculoskeletal: other (No edema) - Lab 09/11/21 05:55 09/11/21 05:55 Most recent lab results ABG pH 7.100 pH Units (7.350-7.450) L* 09/09/21 21:00 ABG pCO2 20.0 mm Hg 09/09/21 21:00 ABG pO2 60.9 mm Hg (80.0-90.0) L 09/09/21 21:00 ABG HCO3 6.1 mmol/L (20.0-26.0) L 09/09/21 21:00 ABG O2 Saturation 81.1 % (95.0-99.0) L 09/09/21 21:00 Calcium 6.7 mg/dL (8.4-10.2) L 09/11/21 05:55 Phosphorus 6.00 mg/dL (2.5-4.5) H 09/11/21 05:55 Magnesium 1.70 mg/dL (1.7-2.3) 09/11/21 05:55 Urine Creatinine 112.8 mg/dL (0.1-20.0) H 09/10/21 11:35 Urine Total Protein 201 mg/dL (5-11.8) H 09/10/21 11:35 Medications & Allergies - Medications Allergies/Adverse Reactions: Allergies No Known Allergies Allergy (Unverified 01/17/17 01:04) Home Medications: Home Medications Medication Instructions Recorded Confirmed Last Taken Type Acetaminophen/Codeine [Tylenol #3] 1 tab PO Q6H PRN #7 tab 01/17/17 Unknown Rx Ibuprofen [Motrin] 600 mg PO Q8H PRN #15 tablet 01/17/17 Unknown Rx methOCARBAMOL [Robaxin TAB] 500 mg PO Q6H PRN #15 tablet 01/17/17 Unknown Rx Active Medications: Generic Name Dose Route Start Last Admin Trade Name Freq PRN Reason Stop Dose Admin Acetaminophen 650 mg 09/09/21 20:24 Acetaminophen 325 Mg Tab PO Q4H PRN Pain MILD(1-3)/Fever >100.5/LOCO Amlodipine Besylate 10 mg 09/11/21 12:00 Amlodipine 10 Mg Tab PO QDAY [facility] Carvedilol 3.125 mg 09/11/21 11:00 Carvedilol 3.125 Mg Tab PO BID [facility] Sodium Bicarbonate 150 meq/ 1,150 mls @ 125 mls/hr 09/09/21 21:00 09/11/21 03:44 Dextrose IV 125 mls/hr DIRECT LENY Administration Labetalol HCl 10 mg 09/11/21 11:09 Labetalol 20 Mg/4 Ml Inj IV Q4HR PRN sbp>160 Metoclopramide HCl 10 mg 09/09/21 20:24 Metoclopramide 10 Mg/2 Ml Inj IV Q6H PRN Nausea And Vomiting Morphine Sulfate 2 mg 09/09/21 20:24 09/10/21 06:00 Morphine 2 Mg/1 Ml Inj IV 2 mg Q4H PRN Administration Pain, Moderate (4-6) Ondansetron HCl 4 mg 09/09/21 20:24 09/11/21 03:43 Ondansetron 4 Mg/2 Ml Inj IV 4 mg Q3H PRN Administration Nausea And Vomiting Pantoprazole Sodium 40 mg 09/11/21 16:30 Pantoprazole 40 Mg Tab PO BIDAC LENY Sodium Chloride 10 ml 09/09/21 22:00 09/11/21 09:15 Sodium Chloride 0.9% 10 Ml Flush Syringe IV 10 ml BID LENY Administration Sodium Chloride 10 ml 09/09/21 20:24 Sodium Chloride 0.9% 10 Ml Flush Syringe IV PRN PRN LINE FLUSH
--- NOTE | 2021-09-11 11:26 | Gastroenterology Progress Note ---
Assessment and Plan 1. severe anemia - appropriate response to blood transfusion, no overt gi bleeding, suspect due to renal failure, possibly component of blood loss from epistaxis. gi work-up for anemia can be done as outpatient, unless signs of overt bleeding/or other indication for inpatient procedures occurs. can switch to PPI BID dosing and once per day at discharge. will sign off, please call as needed. f/u in gi clinic in 2 weeks. Subjective Date of service: 09/11/21 Principal diagnosis: anemia, acute kidney failure Interval history: no overt gi bleeding overnight/today. denies abd pain Objective - Constitutional Vitals: Temp Pulse Resp BP Pulse Ox 99.4 F 79 12 157/92 98 09/11/21 03:40 09/11/21 08:30 09/11/21 08:30 09/11/21 08:30 09/11/21 08:30 General appearance: no acute distress - Cardiovascular Rhythm: regular Heart Sounds: Present: S1 & S2 - Gastrointestinal General gastrointestinal: Present: soft, non-tender, non-distended - Labs CBC & Chem 7: 09/11/21 05:55 09/11/21 05:55 Labs: Laboratory Results - last 24 hr 09/09/21 09/09/21 09/10/21 11:35 20:55 11:35 WBC RBC Hgb Hct MCV MCH MCHC RDW Plt Count Lymph % (Auto) [place] % (Auto) Eos % (Auto) Baso % (Auto) Lymph # (Auto) [place] # (Auto) Eos # (Auto) Baso # (Auto) Add Manual Diff Total Counted Seg Neutrophils % Seg Neuts % (Manual) Band Neutrophils % Lymphocytes % (Manual) Reactive Lymphs % (Man) Monocytes % (Manual) Eosinophils % (Manual) Basophils % (Manual) Metamyelocytes % Myelocytes % Promyelocytes % Blast Cells % Nucleated RBC % Seg Neutrophils # Seg Neutrophils # Man Band Neutrophils # Lymphocytes # (Manual) Abs React Lymphs (Man) Monocytes # (Manual) Eosinophils # (Manual) Basophils # (Manual) Metamyelocytes # Myelocytes # Promyelocytes # Blast Cells # WBC Morphology Hypersegmented Neuts Hyposegmented Neuts Hypogranular Neuts Smudge Cells Toxic Granulation Toxic Vacuolation Dohle Bodies Pelger-Huet Anomaly Francisco Javier Rods Platelet Estimate Clumped Platelets Plt Clumps, EDTA Large Platelets Giant Platelets Platelet Satelliting Plt Morphology Comment RBC Morphology Dimorphic RBCs Polychromasia Hypochromasia Poikilocytosis Anisocytosis Microcytosis Macrocytosis Spherocytes Pappenheimer Bodies Sickle Cells Target Cells Tear Drop Cells Ovalocytes Stomatocytes Helmet Cells [place] Bodies [place] Rings [place] Cells Bite Cells Crenated Cell Elliptocytes Acanthocytes (Spur) Rouleaux Hemoglobin C Crystals Schistocytes Malaria parasites Jose Bodies Hem Pathologist Commnt Sodium Potassium Chloride Carbon Dioxide Anion Gap BUN Creatinine Estimated GFR BUN/Creatinine Ratio Glucose Calcium Phosphorus Magnesium Troponin T Urine Color Straw Urine Turbidity Clear Urine pH 6.0 Ur Specific Victor 1.011 Urine Protein 100 mg/dl Urine Glucose (UA) 50 Urine Ketones Neg Urine Blood Mod Urine Nitrite Neg Urine Bilirubin Neg Urine Urobilinogen < 2.0 Ur Leukocyte Esterase Neg Urine WBC (Auto) 2.0 Urine RBC (Auto) 11.0 Urine Creatinine 112.8 H Protein/Creatinin Ratio 1.78 Urine Total Protein 201 H Urine Opiates Screen Urine Methadone Screen Ur Barbiturates Screen Ur Phencyclidine Scrn Ur Amphetamines Screen U Benzodiazepines Scrn Urine Cocaine Screen U Marijuana (THC) Screen Drugs of Abuse Note Plasma/Serum Alcohol Hep Bs Antigen Non-reactive Hep B Core IgM Ab Non-reactive Hepatitis C Antibody Non-reactive 09/10/21 09/10/21 09/10/21 11:35 11:35 23:11 WBC RBC Hgb Hct MCV MCH MCHC RDW Plt Count Lymph % (Auto) [place] % (Auto) Eos % (Auto) Baso % (Auto) Lymph # (Auto) [place] # (Auto) Eos # (Auto) Baso # (Auto) Add Manual Diff Total Counted Seg Neutrophils % Seg Neuts % (Manual) Band Neutrophils % Lymphocytes % (Manual) Reactive Lymphs % (Man) Monocytes % (Manual) Eosinophils % (Manual) Basophils % (Manual) Metamyelocytes % Myelocytes % Promyelocytes % Blast Cells % Nucleated RBC % Seg Neutrophils # Seg Neutrophils # Man Band Neutrophils # Lymphocytes # (Manual) Abs React Lymphs (Man) Monocytes # (Manual) Eosinophils # (Manual) Basophils # (Manual) Metamyelocytes # Myelocytes # Promyelocytes # Blast Cells # WBC Morphology Hypersegmented Neuts Hyposegmented Neuts Hypogranular Neuts Smudge Cells Toxic Granulation Toxic Vacuolation Dohle Bodies Pelger-Huet Anomaly [place] Javier Rods Platelet Estimate Clumped Platelets Plt Clumps, EDTA Large Platelets Giant Platelets Platelet Satelliting Plt Morphology Comment RBC Morphology Dimorphic RBCs Polychromasia Hypochromasia Poikilocytosis Anisocytosis Microcytosis Macrocytosis Spherocytes Pappenheimer Bodies Sickle Cells Target Cells Tear Drop Cells Ovalocytes Stomatocytes Helmet Cells [place] Bodies [place] Rings Vika Cells Bite Cells Crenated Cell Elliptocytes Acanthocytes (Spur) Rouleaux Hemoglobin C Crystals Schistocytes Malaria parasites Jose Bodies Hem Pathologist Commnt Sodium Potassium Chloride Carbon Dioxide Anion Gap BUN Creatinine Estimated GFR BUN/Creatinine Ratio Glucose Calcium Phosphorus Magnesium Troponin T 0.205 H* D Urine Color Urine Turbidity Urine pH Ur Specific Victor Urine Protein Urine Glucose (UA) Urine Ketones Urine Blood Urine Nitrite Urine Bilirubin Urine Urobilinogen Ur Leukocyte Esterase Urine WBC (Auto) Urine RBC (Auto) Urine Creatinine Protein/Creatinin Ratio Urine Total Protein Urine Opiates Screen Presumptive negative Urine Methadone Screen Presumptive negative Ur Barbiturates Screen Presumptive negative Ur Phencyclidine Scrn Presumptive negative Ur Amphetamines Screen Presumptive negative U Benzodiazepines Scrn Presumptive negative Urine Cocaine Screen Presumptive negative U Marijuana (THC) Screen Presumptive negative Drugs of Abuse Note Disclamer Plasma/Serum Alcohol < 0.01 Hep Bs Antigen Hep B Core IgM Ab Hepatitis C Antibody 09/10/21 09/10/21 09/11/21 Unknown Unknown 05:55 WBC 7.5 RBC 3.07 L Hgb 8.4 L Hct 25.6 L MCV 83 L MCH 27 L MCHC 33 RDW 15.4 H Plt Count 167 Lymph % (Auto) 4.6 L [place] % (Auto) 9.2 H Eos % (Auto) 0.1 Baso % (Auto) 0.3 Lymph # (Auto) 0.3 L [place] # (Auto) 0.7 Eos # (Auto) 0.0 Baso # (Auto) 0.0 Add Manual Diff Complete Total Counted 100 Seg Neutrophils % 85.8 H Seg Neuts % (Manual) 92.0 H Band Neutrophils % 0 Lymphocytes % (Manual) 3.0 L Reactive Lymphs % (Man) 0 Monocytes % (Manual) 5.0 Eosinophils % (Manual) 0 Basophils % (Manual) 0 Metamyelocytes % 0 Myelocytes % 0 Promyelocytes % 0 Blast Cells % 0 Nucleated RBC % 1.0 H Seg Neutrophils # 6.4 Seg Neutrophils # Man 7.3 Band Neutrophils # 0.0 Lymphocytes # (Manual) 0.2 L Abs React Lymphs (Man) 0.0 Monocytes # (Manual) 0.4 Eosinophils # (Manual) 0.0 Basophils # (Manual) 0.0 Metamyelocytes # 0.0 Myelocytes # 0.0 Promyelocytes # 0.0 Blast Cells # 0.0 WBC Morphology Not Reportable Hypersegmented Neuts Not Reportable Hyposegmented Neuts 1+ Hypogranular Neuts Not Reportable Smudge Cells Not Reportable Toxic Granulation Not Reportable Toxic Vacuolation Not Reportable Dohle Bodies Not Reportable Pelger-Huet Anomaly Not Reportable [place] Javier Rods Not Reportable Platelet Estimate Consistent w auto Clumped Platelets Not Reportable Plt Clumps, EDTA Not Reportable Large Platelets Not Reportable Giant Platelets Not Reportable Platelet Satelliting Not Reportable Plt Morphology Comment Not Reportable RBC Morphology Not Reportable Dimorphic RBCs Not Reportable Polychromasia Not Reportable Hypochromasia 1+ Poikilocytosis Few Anisocytosis Not Reportable Microcytosis Not Reportable Macrocytosis Not Reportable Spherocytes Not Reportable Pappenheimer Bodies Not Reportable Sickle Cells Not Reportable Target Cells Rare Tear Drop Cells Not Reportable Ovalocytes Not Reportable Stomatocytes Rare Helmet Cells Not Reportable [place] Bodies Not Reportable [place] Rings Not Reportable Vika Cells Not Reportable Bite Cells Not Reportable Crenated Cell Not Reportable Elliptocytes Not Reportable Acanthocytes (Spur) Not Reportable Rouleaux Not Reportable Hemoglobin C Crystals Not Reportable Schistocytes Not Reportable Malaria parasites Not Reportable Jose Bodies Not Reportable Hem Pathologist Commnt No Sodium Potassium Chloride Carbon Dioxide Anion Gap BUN Creatinine Estimated GFR BUN/Creatinine Ratio Glucose Calcium Phosphorus Magnesium Troponin T 0.158 H* Urine Color Urine Turbidity Urine pH Ur Specific Victor Urine Protein Urine Glucose (UA) Urine Ketones Urine Blood Urine Nitrite Urine Bilirubin Urine Urobilinogen Ur Leukocyte Esterase Urine WBC (Auto) Urine RBC (Auto) Urine Creatinine Protein/Creatinin Ratio Urine Total Protein Urine Opiates Screen Urine Methadone Screen Ur Barbiturates Screen Ur Phencyclidine Scrn Ur Amphetamines Screen U Benzodiazepines Scrn Urine Cocaine Screen U Marijuana (THC) Screen Drugs of Abuse Note Plasma/Serum Alcohol Hep Bs Antigen Hep B Core IgM Ab Hepatitis C Antibody 09/11/21 05:55 WBC RBC Hgb Hct MCV MCH MCHC RDW Plt Count Lymph % (Auto) [place] % (Auto) Eos % (Auto) Baso % (Auto) Lymph # (Auto) [place] # (Auto) Eos # (Auto) Baso # (Auto) Add Manual Diff Total Counted Seg Neutrophils % Seg Neuts % (Manual) Band Neutrophils % Lymphocytes % (Manual) Reactive Lymphs % (Man) Monocytes % (Manual) Eosinophils % (Manual) Basophils % (Manual) Metamyelocytes % Myelocytes % Promyelocytes % Blast Cells % Nucleated RBC % Seg Neutrophils # Seg Neutrophils # Man Band Neutrophils # Lymphocytes # (Manual) Abs React Lymphs (Man) Monocytes # (Manual) Eosinophils # (Manual) Basophils # (Manual) Metamyelocytes # Myelocytes # Promyelocytes # Blast Cells # WBC Morphology Hypersegmented Neuts Hyposegmented Neuts Hypogranular Neuts Smudge Cells Toxic Granulation Toxic Vacuolation Dohle Bodies Pelger-Huet Anomaly [place] Javier Rods Platelet Estimate Clumped Platelets Plt Clumps, EDTA Large Platelets Giant Platelets Platelet Satelliting Plt Morphology Comment RBC Morphology Dimorphic RBCs Polychromasia Hypochromasia Poikilocytosis Anisocytosis Microcytosis Macrocytosis Spherocytes Pappenheimer Bodies Sickle Cells Target Cells Tear Drop Cells Ovalocytes Stomatocytes Helmet Cells [place] Bodies [place] Rings [place] Cells Bite Cells Crenated Cell Elliptocytes Acanthocytes (Spur) Rouleaux Hemoglobin C Crystals Schistocytes Malaria parasites Jose Bodies Hem Pathologist Commnt Sodium 141 Potassium 3.6 Chloride 94.3 L Carbon Dioxide 34 H D Anion Gap 16 BUN 53 H Creatinine 12.8 H Estimated GFR 5 BUN/Creatinine Ratio 4 Glucose 121 H Calcium 6.7 L Phosphorus 6.00 H Magnesium 1.70 Troponin T Urine Color Urine Turbidity Urine pH Ur Specific Victor Urine Protein Urine Glucose (UA) Urine Ketones Urine Blood Urine Nitrite Urine Bilirubin Urine Urobilinogen Ur Leukocyte Esterase Urine WBC (Auto) Urine RBC (Auto) Urine Creatinine Protein/Creatinin Ratio Urine Total Protein Urine Opiates Screen Urine Methadone Screen Ur Barbiturates Screen Ur Phencyclidine Scrn Ur Amphetamines Screen U Benzodiazepines Scrn Urine Cocaine Screen U Marijuana (THC) Screen Drugs of Abuse Note Plasma/Serum Alcohol Hep Bs Antigen Hep B Core IgM Ab Hepatitis C Antibody
[2021-09-11] MEDS: SODIUM CHLORIDE 0.9% 1000 ML 1,000 ML IV SCH ×2 (12:48→23:05)
--- NOTE | 2021-09-11 13:10 | Progress Note ---
Assessment and Plan 61 y/o male with acute respiratory failure, acute renal failure, anemia, nose bleed and hypertension. 09/11/21: Wean FiO2 to off. Pulm status is stable. Will sign off. Call if any questions or concerns. 09/10/21: Wean FiO2 to off for sats >88%. For nose bleed pack nare with gauze soaked in Afrin and leave it there for at least the next 12 hours. Follow up any new renal recs. Follow up CBC. Given CT results, likely needs urologic evaluation and some form of intervention to relieve obstruction vs IR for nephrostomy tubes, will defer to renal. They plan to continue with HD. Guarded prognosis, especially given age and prostate findings on CT. 1. Discussed case with renal. Clinically patient appears to be very dry. No león placed in the ED and when we tried to place here in unit, unable to get urine despite bladder scan showing almost of liter of fluid. Will defer to renal about this but orders for HD placed. Bp is stable. Patient is alert and oriented. He was like this prior to the placing HD catheter but is somnolent now after medication to help relax him to place the line. HD nurses on way to do HD. Will also defer to renal on if more volume is needed and if they want to involve urology. We will order a stat CT of the Abdomen Pelvis to look for hydronephrosis and possible evidence of obstruction. 2. Anemia-related to chronic disease? exact etiology unknown. MCV is low at 79. Per ED started on PPI drip. Suggest q6 hour H/H's. Transfuse with HD if done tonight. Goal HgB at this time would be 7. needs iron studies. 3. Pulm- CXR is clear but patient has hypoxemia. Could be related to nose bleed and congestion vs volume overload but as stated CXR is clear. continue supplemental o2 and wean as tolerated 4. Overall prognosis is guarded to poor. Suspect this is not acute renal injury and likely something that has been brewing for some time. Hopeful patient will tolerate all therapies. CCT 31 minutes. Subjective Date of service: 09/11/21 Principal diagnosis: anemia, acute kidney failure Interval history: No acute events. On 2 liters of O2. Good sats Objective - Constitutional Vitals: Vital Signs - 12hr 09/11/21 09/11/2122 01:15 01:30 01:45 Temperature Pulse Rate 84 82 101 H Pulse Rate [ From Monitor] Respiratory 13 13 20 Rate Blood Pressure 134/81 133/83 133/83 O2 Sat by Pulse 99 99 99 Oximetry 09/11/21 09/11/21 09/11/21 02:15 02:31 03:01 Temperature Pulse Rate 81 89 85 Pulse Rate [ From Monitor] Respiratory 10 L 17 13 Rate Blood Pressure 155/92 140/95 163/93 O2 Sat by Pulse 95 98 95 Oximetry 09/11/21 09/11/21 09/11/21 03:30 03:40 04:00 Temperature 99.4 F Pulse Rate 83 84 Pulse Rate [ 84 From Monitor] Respiratory 15 13 Rate Blood Pressure 160/87 160/95 O2 Sat by Pulse 97 97 Oximetry 09/11/21 09/11/21 09/11/21 04:30 05:01 05:30 Temperature Pulse Rate 81 82 75 Pulse Rate [ From Monitor] Respiratory 15 12 11 L Rate Blood Pressure 163/97 164/92 165/86 O2 Sat by Pulse 97 97 98 Oximetry 09/11/21 09/11/21 09/11/21 06:00 06:30 07:00 Temperature Pulse Rate 83 83 83 Pulse Rate [ From Monitor] Respiratory 13 19 14 Rate Blood Pressure 140/86 133/82 151/89 O2 Sat by Pulse 96 96 95 Oximetry 09/11/21 09/11/21 09/11/21 07:30 08:00 08:30 Temperature Pulse Rate 81 81 79 Pulse Rate [ From Monitor] Respiratory 13 13 12 Rate Blood Pressure 140/87 147/88 157/92 O2 Sat by Pulse 96 97 98 Oximetry - Labs CBC & Chem 7: 09/11/21 05:55 09/11/21 05:55 Labs: Abnormal lab results 09/10/21 09/10/21 09/10/21 Range/Units 11:35 23:11 Unknown RBC (3.65-5.03) M/mm3 Hgb (11.8-15.2) gm/dl Hct (35.5-45.6) % MCV (84-94) fl MCH (28-32) pg RDW (13.2-15.2) % Lymph % (Auto) (13.4-35.0) % [place] % (Auto) (0.0-7.3) % Lymph # (Auto) (1.2-5.4) K/mm3 Seg Neutrophils % (40.0-70.0) % Chloride (98-107) mmol/L Carbon Dioxide (22-30) mmol/L BUN (9-20) mg/dL Creatinine (0.8-1.3) mg/dL Glucose (75-100) mg/dL Calcium (8.4-10.2) mg/dL Phosphorus (2.5-4.5) mg/dL Troponin T 0.205 H* D 0.158 H* (0.00-0.029) ng/mL Urine Creatinine 112.8 H (0.1-20.0) mg/dL Urine Total Protein 201 H (5-11.8) mg/dL 09/11/21 09/11/21 Range/Units 05:55 05:55 RBC 3.07 L (3.65-5.03) M/mm3 Hgb 8.4 L (11.8-15.2) gm/dl Hct 25.6 L (35.5-45.6) % MCV 83 L (84-94) fl MCH 27 L (28-32) pg RDW 15.4 H (13.2-15.2) % Lymph % (Auto) 4.6 L (13.4-35.0) % [place] % (Auto) 9.2 H (0.0-7.3) % Lymph # (Auto) 0.3 L (1.2-5.4) K/mm3 Seg Neutrophils % 85.8 H (40.0-70.0) % Chloride 94.3 L (98-107) mmol/L Carbon Dioxide 34 H D (22-30) mmol/L BUN 53 H (9-20) mg/dL Creatinine 12.8 H (0.8-1.3) mg/dL Glucose 121 H (75-100) mg/dL Calcium 6.7 L (8.4-10.2) mg/dL Phosphorus 6.00 H (2.5-4.5) mg/dL Troponin T (0.00-0.029) ng/mL Urine Creatinine (0.1-20.0) mg/dL Urine Total Protein (5-11.8) mg/dL Medications & Allergies - Medications Allergies/Adverse Reactions: Allergies No Known Allergies Allergy (Unverified 01/17/17 01:04) Home Medications: Home Medications Medication Instructions Recorded Confirmed Last Taken Type Acetaminophen/Codeine [Tylenol #3] 1 tab PO Q6H PRN #7 tab 01/17/17 Unknown Rx Ibuprofen [Motrin] 600 mg PO Q8H PRN #15 tablet 01/17/17 Unknown Rx methOCARBAMOL [Robaxin TAB] 500 mg PO Q6H PRN #15 tablet 01/17/17 Unknown Rx Active Medications: Generic Name Dose Route Start Last Admin Trade Name Freq PRN Reason Stop Dose Admin Acetaminophen 650 mg 09/09/21 20:24 Acetaminophen 325 Mg Tab PO Q4H PRN Pain MILD(1-3)/Fever >100.5/LOCO Amlodipine Besylate 10 mg 09/11/21 12:00 Amlodipine 10 Mg Tab PO QDAY LENY Carvedilol 3.125 mg 09/11/21 11:00 09/11/21 11:00 Carvedilol 3.125 Mg Tab PO 3.125 mg BID LENY Administration Sodium Chloride 1,000 mls @ 75 mls/hr 09/11/21 11:45 09/11/21 12:48 Nacl 0.9% 1000 Ml IV 75 mls/hr DIRECT LENY Administration Labetalol HCl 10 mg 09/11/21 11:09 Labetalol 20 Mg/4 Ml Inj IV Q4HR PRN sbp>160 Metoclopramide HCl 10 mg 09/09/21 20:24 Metoclopramide 10 Mg/2 Ml Inj IV Q6H PRN Nausea And Vomiting Morphine Sulfate 2 mg 09/09/21 20:24 09/10/21 06:00 Morphine 2 Mg/1 Ml Inj IV 2 mg Q4H PRN Administration Pain, Moderate (4-6) Ondansetron HCl 4 mg 09/09/21 20:24 09/11/21 03:43 Ondansetron 4 Mg/2 Ml Inj IV 4 mg Q3H PRN Administration Nausea And Vomiting Pantoprazole Sodium 40 mg 09/11/21 16:30 Pantoprazole 40 Mg Tab PO BIDAC LENY Sodium Chloride 10 ml 09/09/21 22:00 09/11/21 09:15 Sodium Chloride 0.9% 10 Ml Flush Syringe IV 10 ml BID LENY Administration Sodium Chloride 10 ml 09/09/21 20:24 Sodium Chloride 0.9% 10 Ml Flush Syringe IV PRN PRN LINE FLUSH Tamsulosin HCl 0.8 mg 09/11/21 12:00 Tamsulosin 0.4 Mg Cap PO QDAY LENY HEART Score - HEART Score Troponin: Troponin T 0.158 ng/mL (0.00-0.029) H* 09/10/21 Unknown
[2021-09-11] MEDS: amLODIPine 10 MG TAB PO SCH (13:31)
[2021-09-11] MEDS: TAMSULOSIN 0.4 MG CAP PO SCH (13:32)
[2021-09-11] MEDS: PANTOPRAZOLE 40 MG TAB PO SCH (19:08)
--- NOTE | 2021-09-12 07:23 | Progress Note ---
Assessment and Plan Assessment and plan: History of present illness: 61 years old male with past medical history of chronic kidney disease was brought to the hospital because of progressive shortness of breath as stated with vomiting and bleeding from nose for 1 day. Patient is a very poor historian. In the emergency room patient is found to have hemoglobin of 4.8 and hematocrit 14.9 also patient is found to have potassium of 7.1, bicarb 4, anion gap 54, BUN to 38 and creatinine 48.4, lactic acid 2.80. ABG shows pH 7.100, PCO2 20+0, PO2 60.9, bicarb 6.1 Subsequently Case was discussed with on-call GI doctor as well as nephrology who will do the hemodialysis immediately. We also put the patient on IMCU putting on bicarb drip, Protonix drip giving blood transfusion and consult critical care evaluation Hospital Course: 09/10: Improved on bedside encounter. Urology placed león catheter. Plan for nephrology to complete HD today. Hgb improved to 8.3, suspect anemia is purely from epistaxis, unclear if there was truly was a GI source. Will continue to monitor for other source of bleed. GI consulted, will follow recommendations. 09/11: hemoglobin stable. patient on encounter states he had recurrent epistaxis bleed leading up to hospitalization. Hgb stable this AM. Renal indices improved on bmp. Urine output 1000 cc yesterday. Troponin downtrending. D/w Dr. Juan A Martin, will d/c protonix IV, start on protonix 40 mg po bid. Transfer to floor bed. 09/12: Doing well on encounter today. on room air saturating 98%. Renal indices improving. León output approx: 2500 cc yday. [place] tingued urine noted, clearing up. hemoglobin 8.1, VSS. No plan for HD today per nephrology. We will continue to follow along for hemodialysis plan moving forward and nephrology final impression on renal prognosis. Anticipate d/c in next 24-48 hrs depending on this. Patient will likely need to be discharged with León catheter and instructions to follow-up with urology as an outpatient. Assessment and Plan: #Acute kidney injury due to post renal obstruction (improving) #Metabolic Acidosis (resolving) #Lactic Acidosis 2.8-> 2.1 (resolved) #Hyperkalemia (resolved) #Uremia (resolved) #Urinary retention (resolving) #Prostateamegaly - BUN to 38 and creatinine 48.4 -ABG pH 7.100, PCO2 20.0, PO2 60.9, bicarb 6.1 - K: 7.1, subsequently 3.2 - LA: 2.8->2.1 -nephrology consultation - urology called for león placement - noted prostatamegaly on ctap, ordered psa elevated to 5.18 - monitor electrolytes on serial renal profile - strict I/O, close UOP monitoring - avoid nephrotoxins, renally adjust medications - bicarb gtt to be continued per nephrology direction #Acute hypoxic respiratory failure (resolved) - O2 sat as low as 56% on admission, currently on room air satting 98%, not in respiratory distress - shortness of breath likely driven by severe anemia - cxr: no acute findings. - pulmonology following #Acute metabolic encephalopathy (resolved) - likely due to uremia - improving #hypertension - elevated BP - coreg dose increased, hold linsey-i due to renal fx. #Blood loss anemia s/p 4 units prbc (stable) #Epistaxis (appears resolved) - hx of recurrent epistaxis per son, patient had increased uncontrolled bleeding for 1 day. No prior hx of GI bleed or reported blood in stool. Uremia could have precipitated bleed. - Hgb: 4.8 on admission, s/p 4 units prbc, now 8's - transfuse prn Hgb< 7. - GI consulted due to concern for GI bleed on admission - protonix gtt, start protonix 40 mg po bid - unclear if this is truly GI source, will defer to gastroenterology, D/w Dr. Juan A Martin #Type II myocardial infarction (resolved) - supply demand from anemia in the setting TIFFANIE - serial troponins ordered, downtrending. -cardiology following, no intervention at this time. #Sepsis ruled out, doubt infectious etiology. History Interval history: resting comfortably. no acute complaints this AM. Hospitalist Physical - Physical exam Narrative exam: General appearance: Present: no acute distress, well-nourished, resting comfortably. alert, comfortable, nad. - EENT Eyes: Present: PERRL ENT: hearing intact, clear oral mucosa - Neck Neck: Present: supple, normal ROM, RT IJ temp dialysis catheter. - Respiratory Respiratory effort: normal Respiratory: bilateral: diminished - Cardiovascular Heart Sounds: Present: S1 & S2. Absent: rub, click - Extremities Extremities: pulses symmetrical, No edema Peripheral Pulses: within normal limits - Abdominal General gastrointestinal: Present: soft, non-tender, non-distended, normal bowel sounds Male genitourinary: Present: normal - Integumentary Integumentary: Present: clear, warm, dry - Musculoskeletal Musculoskeletal: gait normal, strength equal bilaterally - Psychiatric Psychiatric: appropriate mood/affect, intact judgment & insight - Neurologic Neurologic: CNII-XII intact, moves all extremities : león catheter in place, pink urine in león bag. - Constitutional Vitals: Temp Pulse Resp BP Pulse Ox 98.3 F 84 13 160/96 98 09/12/21 04:53 09/12/21 05:34 09/12/21 05:34 09/12/21 04:53 09/12/21 07:09 General appearance: Present: no acute distress HEART Score - HEART Score Troponin: Troponin T 0.158 ng/mL (0.00-0.029) H* 09/10/21 Unknown Results - Labs CBC & Chem 7: 09/12/21 08:03 09/12/21 08:03 Labs: Laboratory Last Values WBC 7.5 K/mm3 (4.5-11.0) 09/11/21 05:55 RBC 3.07 M/mm3 (3.65-5.03) L 09/11/21 05:55 Hgb 8.4 gm/dl (11.8-15.2) L 09/11/21 05:55 Hct 25.6 % (35.5-45.6) L 09/11/21 05:55 MCV 83 fl (84-94) L 09/11/21 05:55 MCH 27 pg (28-32) L 09/11/21 05:55 MCHC 33 % (32-34) 09/11/21 05:55 RDW 15.4 % (13.2-15.2) H 09/11/21 05:55 Plt Count 167 K/mm3 (140-440) 09/11/21 05:55 Lymph % (Auto) 4.6 % (13.4-35.0) L 09/11/21 05:55 [place] % (Auto) 9.2 % (0.0-7.3) H 09/11/21 05:55 Eos % (Auto) 0.1 % (0.0-4.3) 09/11/21 05:55 Baso % (Auto) 0.3 % (0.0-1.8) 09/11/21 05:55 Lymph # (Auto) 0.3 K/mm3 (1.2-5.4) L 09/11/21 05:55 [place] # (Auto) 0.7 K/mm3 (0.0-0.8) 09/11/21 05:55 Eos # (Auto) 0.0 K/mm3 (0.0-0.4) 09/11/21 05:55 Baso # (Auto) 0.0 K/mm3 (0.0-0.1) 09/11/21 05:55 Add Manual Diff Complete 09/10/21 Unknown Total Counted 100 09/10/21 Unknown Seg Neutrophils % 85.8 % (40.0-70.0) H 09/11/21 05:55 Seg Neuts % (Manual) 92.0 % (40.0-70.0) H 09/10/21 Unknown Band Neutrophils % 0 % 09/10/21 Unknown Lymphocytes % (Manual) 3.0 % (13.4-35.0) L 09/10/21 Unknown Reactive Lymphs % (Man) 0 % 09/10/21 Unknown Monocytes % (Manual) 5.0 % (0.0-7.3) 09/10/21 Unknown Eosinophils % (Manual) 0 % (0.0-4.3) 09/10/21 Unknown Basophils % (Manual) 0 % (0.0-1.8) 09/10/21 Unknown Metamyelocytes % 0 % 09/10/21 Unknown Myelocytes % 0 % 09/10/21 Unknown Promyelocytes % 0 % 09/10/21 Unknown Blast Cells % 0 % 09/10/21 Unknown Nucleated RBC % 1.0 % (0.0-0.9) H 09/10/21 Unknown Seg Neutrophils # 6.4 K/mm3 (1.8-7.7) 09/11/21 05:55 Seg Neutrophils # Man 7.3 K/mm3 (1.8-7.7) 09/10/21 Unknown Band Neutrophils # 0.0 K/mm3 09/10/21 Unknown Lymphocytes # (Manual) 0.2 K/mm3 (1.2-5.4) L 09/10/21 Unknown Abs React Lymphs (Man) 0.0 K/mm3 09/10/21 Unknown Monocytes # (Manual) 0.4 K/mm3 (0.0-0.8) 09/10/21 Unknown Eosinophils # (Manual) 0.0 K/mm3 (0.0-0.4) 09/10/21 Unknown Basophils # (Manual) 0.0 K/mm3 (0.0-0.1) 09/10/21 Unknown Metamyelocytes # 0.0 K/mm3 09/10/21 Unknown Myelocytes # 0.0 K/mm3 09/10/21 Unknown Promyelocytes # 0.0 K/mm3 09/10/21 Unknown Blast Cells # 0.0 K/mm3 09/10/21 Unknown WBC Morphology Not Reportable 09/10/21 Unknown Hypersegmented Neuts Not Reportable 09/10/21 Unknown Hyposegmented Neuts 1+ 09/10/21 Unknown Hypogranular Neuts Not Reportable 09/10/21 Unknown Smudge Cells Not Reportable 09/10/21 Unknown Toxic Granulation Not Reportable 09/10/21 Unknown Toxic Vacuolation Not Reportable 09/10/21 Unknown Dohle Bodies Not Reportable 09/10/21 Unknown Pelger-Huet Anomaly Not Reportable 09/10/21 Unknown Francisco Javier Rods Not Reportable 09/10/21 Unknown Platelet Estimate Consistent w auto 09/10/21 Unknown Clumped Platelets Not Reportable 09/10/21 Unknown Plt Clumps, EDTA Not Reportable 09/10/21 Unknown Large Platelets Not Reportable 09/10/21 Unknown Giant Platelets Not Reportable 09/10/21 Unknown Platelet Satelliting Not Reportable 09/10/21 Unknown Plt Morphology Comment Not Reportable 09/10/21 Unknown RBC Morphology Not Reportable 09/10/21 Unknown Dimorphic RBCs Not Reportable 09/10/21 Unknown Polychromasia Not Reportable 09/10/21 Unknown Hypochromasia 1+ 09/10/21 Unknown Poikilocytosis Few 09/10/21 Unknown Anisocytosis Not Reportable 09/10/21 Unknown Microcytosis Not Reportable 09/10/21 Unknown Macrocytosis Not Reportable 09/10/21 Unknown Spherocytes Not Reportable 09/10/21 Unknown Pappenheimer Bodies Not Reportable 09/10/21 Unknown Sickle Cells Not Reportable 09/10/21 Unknown Target Cells Rare 09/10/21 Unknown Tear Drop Cells Not Reportable 09/10/21 Unknown Ovalocytes Not Reportable 09/10/21 Unknown Stomatocytes Rare 09/10/21 Unknown Helmet Cells Not Reportable 09/10/[address] [place] Bodies Not Reportable 09/10/21 Unknown [place] Rings Not Reportable 09/10/21 Unknown Vika Cells Not Reportable 09/10/21 Unknown Bite Cells Not Reportable 09/10/21 Unknown Crenated Cell Not Reportable 09/10/21 Unknown Elliptocytes Not Reportable 09/10/21 Unknown Acanthocytes (Spur) Not Reportable 09/10/21 Unknown Rouleaux Not Reportable 09/10/21 Unknown Hemoglobin C Crystals Not Reportable 09/10/21 Unknown Schistocytes Not Reportable 09/10/21 Unknown Malaria parasites Not Reportable 09/10/21 Unknown Jose Bodies Not Reportable 09/10/21 Unknown Hem Pathologist Commnt No 09/10/21 Unknown PT 16.6 Sec. (12.2-14.9) H 09/09/21 18:53 INR 1.20 (0.87-1.13) H 09/09/21 18:53 D-Dimer 2203.38 ng/mlDDU (0-234) H 09/09/21 18:53 ABG pH 7.100 pH Units (7.350-7.450) L* 09/09/21 21:00 ABG pCO2 20.0 mm Hg 09/09/21 21:00 ABG pO2 60.9 mm Hg (80.0-90.0) L 09/09/21 21:00 ABG HCO3 6.1 mmol/L (20.0-26.0) L 09/09/21 21:00 ABG O2 Saturation 81.1 % (95.0-99.0) L 09/09/21 21:00 ABG O2 Content 4.8 (0.0-44) 09/09/21 21:00 ABG Base Excess -21.5 mmol/L (-2.0-3.0) L 09/09/21 21:00 ABG Hemoglobin 5.0 gm/dl (14.0-18.0) L 09/09/21 21:00 ABG Carboxyhemoglobin 1.3 % (0.0-5.0) 09/09/21 21:00 ABG Methemoglobin 0.5 % (0.0-1.5) 09/09/21 21:00 Oxyhemoglobin 79.7 % (95.0-99.0) L 09/09/21 21:00 FiO2 28 % 09/09/21 21:00 Sodium 141 mmol/L (137-145) 09/11/21 05:55 Potassium 3.6 mmol/L (3.6-5.0) 09/11/21 05:55 Chloride 94.3 mmol/L (98-107) L 09/11/21 05:55 Carbon Dioxide 34 mmol/L (22-30) H D 09/11/21 05:55 Anion Gap 16 mmol/L 09/11/21 05:55 BUN 53 mg/dL (9-20) H 09/11/21 05:55 Creatinine 12.8 mg/dL (0.8-1.3) H 09/11/21 05:55 Estimated GFR 5 ml/min 09/11/21 05:55 BUN/Creatinine Ratio 4 % 09/11/21 05:55 Glucose 121 mg/dL (75-100) H 09/11/21 05:55 POC Glucose 147 mg/dL (70-105) H 09/10/21 07:35 Lactic Acid 2.10 mmol/L (0.7-2.0) H* 09/09/21 20:49 Calcium 6.7 mg/dL (8.4-10.2) L 09/11/21 05:55 Phosphorus 6.00 mg/dL (2.5-4.5) H 09/11/21 05:55 Magnesium 1.70 mg/dL (1.7-2.3) 09/11/21 05:55 Total Bilirubin 0.30 mg/dL (0.1-1.2) 09/09/21 18:53 AST 17 units/L (5-40) 09/09/21 18:53 ALT 19 units/L (7-56) 09/09/21 18:53 Alkaline Phosphatase 57 units/L (35-129) 09/09/21 18:53 Ammonia 39.0 umol/L (25-60) 09/09/21 19:02 Total Creatine Kinase 1530 units/L (55-170) H 09/10/21 Unknown CK-MB (CK-2) 21.4 ng/mL (0.0-4.0) H 09/09/21 18:53 CK-MB (CK-2) Rel Index 1.2 (0-4) 09/09/21 18:53 Troponin T 0.158 ng/mL (0.00-0.029) H* 09/10/21 Unknown C-Reactive Protein 1.50 mg/dL (0.00-1.30) H 09/09/21 18:53 NT-Pro-B Natriuret Pep 6011 pg/mL (0-900) H 09/09/21 18:53 Total Protein 7.4 g/dL (6.3-8.2) 09/09/21 18:53 Albumin 4.2 g/dL (3.9-5) 09/09/21 18:53 Albumin/Globulin Ratio 1.3 % 09/09/21 18:53 Triglycerides 177 mg/dL (2-149) H 09/09/21 18:53 Cholesterol 170 mg/dL (50-199) 09/09/21 18:53 LDL Cholesterol Direct 107 mg/dL (50-130) 09/09/21 18:53 HDL Cholesterol 28 mg/dL (40-59) L 09/09/21 18:53 Cholesterol/HDL Ratio 6.07 % 09/09/21 18:53 Lipase 1198 units/L (13-60) H 09/09/21 18:53 Prostate Specific Ag 5.18 ng/mL (0.00-4.00) H 09/10/21 Unknown Urine Color Straw (Yellow) 09/09/21 11:35 Urine Turbidity Clear (Clear) 09/09/21 11:35 Urine pH 6.0 (5.0-7.0) 09/09/21 11:35 Ur Specific [place] 1.011 (1.003-1.030) 09/09/21 11:35 Urine Protein 100 mg/dl mg/dL (Negative) 09/09/21 11:35 Urine Glucose (UA) 50 mg/dL (Negative) 09/09/21 11:35 Urine Ketones Neg mg/dL (Negative) 09/09/21 11:35 Urine Blood Mod (Negative) 09/09/21 11:35 Urine Nitrite Neg (Negative) 09/09/21 11:35 Urine Bilirubin Neg (Negative) 09/09/21 11:35 Urine Urobilinogen < 2.0 mg/dL (<2.0) 09/09/21 11:35 Ur Leukocyte Esterase Neg (Negative) 09/09/21 11:35 Urine WBC (Auto) 2.0 /HPF (0.0-6.0) 09/09/21 11:35 Urine RBC (Auto) 11.0 /HPF (0.0-6.0) 09/09/21 11:35 Urine Creatinine 112.8 mg/dL (0.1-20.0) H 09/10/21 11:35 Protein/Creatinin Ratio 1.78 09/10/21 11:35 Urine Total Protein 201 mg/dL (5-11.8) H 09/10/21 11:35 Urine Opiates Screen Presumptive negative 09/10/21 11:35 Urine Methadone Screen Presumptive negative 09/10/21 11:35 Ur Barbiturates Screen Presumptive negative 09/10/21 11:35 Ur Phencyclidine Scrn Presumptive negative 09/10/21 11:35 Ur Amphetamines Screen Presumptive negative 09/10/21 11:35 U Benzodiazepines Scrn Presumptive negative 09/10/21 11:35 Urine Cocaine Screen Presumptive negative 09/10/21 11:35 U Marijuana (THC) Screen Presumptive negative 09/10/21 11:35 Drugs of Abuse Note Disclamer 09/10/21 11:35 Plasma/Serum Alcohol < 0.01 % (0-0.07) 09/10/21 11:35 Hep Bs Antigen Non-reactive (Negative) 09/09/21 20:55 Hep B Core IgM Ab Non-reactive (NonReactive) 09/09/21 20:55 Hepatitis C Antibody Non-reactive (NonReactive) 09/09/21 20:55 Blood Type O POSITIVE 09/09/21 20:10 Antibody Screen Negative 09/09/21 20:10 Crossmatch See Detail 09/09/21 20:10 León/IV: Voiding Method Indwelling Catheter Active Medications - Current Medications Current Medications: Generic Name Dose Route Start Last Admin Trade Name Freq PRN Reason Stop Dose Admin Acetaminophen 650 mg 09/09/21 20:24 Acetaminophen 325 Mg Tab PO Q4H PRN Pain MILD(1-3)/Fever >100.5/LOCO Amlodipine Besylate 10 mg 09/11/21 12:00 09/11/21 13:31 Amlodipine 10 Mg Tab PO 10 mg QDAY LENY Administration Carvedilol 3.125 mg 09/11/21 11:00 09/11/21 23:05 Carvedilol 3.125 Mg Tab PO 3.125 mg BID LENY Administration Sodium Chloride 1,000 mls @ 75 mls/hr 09/11/21 11:45 09/11/21 23:05 Nacl 0.9% 1000 Ml IV 75 mls/hr DIRECT LENY Administration Labetalol HCl 10 mg 09/11/21 11:09 Labetalol 20 Mg/4 Ml Inj IV Q4HR PRN sbp>160 Metoclopramide HCl 10 mg 09/09/21 20:24 Metoclopramide 10 Mg/2 Ml Inj IV Q6H PRN Nausea And Vomiting Morphine Sulfate 2 mg 09/09/21 20:24 09/10/21 06:00 Morphine 2 Mg/1 Ml Inj IV 2 mg Q4H PRN Administration Pain, Moderate (4-6) Ondansetron HCl 4 mg 09/09/21 20:24 09/11/21 03:43 Ondansetron 4 Mg/2 Ml Inj IV 4 mg Q3H PRN Administration Nausea And Vomiting Pantoprazole Sodium 40 mg 09/11/21 16:30 09/11/21 19:08 Pantoprazole 40 Mg Tab PO Not Given BIDAC LENY Sodium Chloride 10 ml 09/09/21 22:00 09/11/21 23:06 Sodium Chloride 0.9% 10 Ml Flush Syringe IV 10 ml BID LENY Administration Sodium Chloride 10 ml 09/09/21 20:24 Sodium Chloride 0.9% 10 Ml Flush Syringe IV PRN PRN LINE FLUSH Tamsulosin HCl 0.8 mg 09/11/21 12:00 09/11/21 13:32 Tamsulosin 0.4 Mg Cap PO 0.8 mg QDAY LENY Administration Nutrition/Malnutrition Assess - Dietary Evaluation Nutrition/Malnutrition Findings: Nutrition Notes Start: 09/10/21 15:32 Freq: Status: Active Protocol: Document 09/10/21 15:32 VANESSA (Rec: 09/10/21 16:25 VANESSA [id number]) Nutrition Notes 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 Current Diet NPO (since 09/09 20:25). Labs/Tests 09/10: K 3.2, Cl 94.6, CO2 20, BUN 108, Crea 21.1, Glu 146, Ca 7.1. Pertinent Medications 09/10: Ca-Gluconate 1 g/ns 100 ml @ 300 ml/hr, others nutritionally unremarkable. Height 5 ft 8 in Weight 58.967 kg [place] Body Weight (kg) 70.00 BMI 19.8 Intake Prior to Admission Good Weight change and time frame Pt states having, unintentionally, loss between 14 and 23 lb recently. Weight Status Appropriate Subjective/Other Information RD consult for skin risk and risk of malnutrition assessments. Pt currently on NPO. I recommend advance to Renal Diet, when pertinent. Pt on Nasal Cannula, O2 saturation @ 95%, according to Physical Assessment History notes. Pt shows no signs of concern for skin risk at the time, according to Physical Assessment History notes. Pt shows no signs of concer for risk of malnutrition at the time, according to Physical Assessment History notes. Procedure on 09/09: R-IJ VasCath placement. Well tolerated, according to Procedure notes. Pt consition improved on 09/10 , León catheter placed, Hgb improved as anemia was associated to Epistaxis and no to tother source of GI bleed, according to Progress notes. Percent of energy/protein needs met: Pt currently on NPO. Prescribed Renal Diet provides for energy/protein needs (2, 072 Kcal/77 g) during LOS; additionally, Dietary Supplements will compensate for possible poor or insufficient PO intake of meals with 850 Kcal and 38 g of protein. Burn Absent Trauma Absent GI Symptoms None Food Allergy No Skin Integrity/Comment Assessment WNL. Current % PO Other Minimum of two criteria No Interpretation of Weight Loss (severe) >10% in 6 months Protein-Calorie Malnutrition N\A #1 Nutrition Diagnosis Increased nutrient needs ( specify in comment below) Comments: Protein to support blood replenishment. Will assess Pt's PO intake of meals and the eventual need for dietary supplementation at F/U. Etiology Significant loss of blood. As Evidenced by Signs and Symptoms Significant anemia lab values and long lasting Epistaxis Is patient on ventilator? No Is Patient Ambulatory and/or Out of Bed Yes REE-([facility]-ambulatory/OOB) [ [id number] [id number]] Calculation Used for Recommendations [facility] Additional Notes Protein: 1.2-2 g/Kg IBW; 84- 140 g/day. Fluids: 1 ml/Kcal, or as per MD. Nutrition Intervention Change Diet Order: When pertinent, advance to Renal Diet. Add Supplement/Snack (indicate name/kcal When pertinent, 8 fl oz Nepro /protein ) w/CARBSTEADY; BID. Provides kCal: 850 Provides Protein (gm) 38 Goal #1 Support, through dietary supplementation, hematological balance processes during LOS. Goal #2 Adjust the dietary intervention to better serve Pt's needs and clinical conditions during LOS. Goal #3 Maintain body weight within +/ -3% of admission body weight during LOS. Follow-Up By: 09/13/21 Additional Comments When pertinent, start monitoring food tolerance, %PO intake of meals, and BM.
[2021-09-12 08:47] LABS: Basophils # (Auto) 0.1 K/mm3 (0.0-0.1); Basophils % (Auto) 0.8 % (0.0-1.8); Eosinophils # (Auto) 0.3 K/mm3 (0.0-0.4); Eosinophils % (Auto) 3.5 % (0.0-4.3); Hematocrit 24.6 % (35.5-45.6); Hemoglobin 8.1 gm/dl (11.8-15.2); Lymphocytes # (Auto) 0.8 K/mm3 (1.2-5.4); Lymphocytes % (Auto) 9.6 % (13.4-35.0); Mean Corpuscular HGB Conc 33 % (32-34); Mean Corpuscular Volume 84 fl (84-94); Monocytes % (Auto) 11.3 % (0.0-7.3); Platelet Count 141 K/mm3 (140-440); Red Blood Count 2.93 M/mm3 (3.65-5.03); Red Cell Distribution Width 14.8 % (13.2-15.2)
[2021-09-12 09:06] LABS: Calcium 6.5 mg/dL (8.4-10.2)
--- NOTE | 2021-09-12 09:11 | Progress Note ---
Assessment and Plan Severe renal failure secondary to obstructive uropathy Hyperkalemia Metabolic acidosis, now Alkalotic Uremia Acute Anemia Plan: No indication for HD today, UOP cont to improve will check 24 hours urine creatinine clearance CT AP showed BL hydronephrosis and bladder scan was positive for urinary retention. Urology consulted and placed león and recommended Flomax and to call them for león catheter removal Flomax 0.8 mg po daily Monitor post obstructive diuresis closely, monitor K, Mg and Phos with close mon itoring of hypotension Renally dose medications Avoid nephrotoxic agents Strict I&O's daily Obtain daily weights Assess dialysis needs daily Continue to monitor renal function closely Subjective Date of service: 09/12/21 Principal diagnosis: anemia, acute kidney failure Interval history: tolerated HD today Objective - Vital Signs Vital signs: Vital Signs - 12hr 09/11/21 09/11/21 09/12/21 22:00 22:12 04:53 Temperature 99.7 F H 99.7 F H 98.3 F Pulse Rate 98 H 79 Pulse Rate [ From Monitor] Pulse Rate [ 99 H Left Brachial] Respiratory 20 20 20 Rate Blood Pressure 188/115 188/115 160/96 O2 Sat by Pulse 93 93 96 Oximetry 09/12/21 09/12/21 05:34 07:09 Temperature Pulse Rate Pulse Rate [ 84 From Monitor] Pulse Rate [ Left Brachial] Respiratory 13 Rate Blood Pressure O2 Sat by Pulse 97 98 Oximetry - Lab 09/12/21 08:03 09/12/21 08:03 Most recent lab results ABG pH 7.100 pH Units (7.350-7.450) L* 09/09/21 21:00 ABG pCO2 20.0 mm Hg 09/09/21 21:00 ABG pO2 60.9 mm Hg (80.0-90.0) L 09/09/21 21:00 ABG HCO3 6.1 mmol/L (20.0-26.0) L 09/09/21 21:00 ABG O2 Saturation 81.1 % (95.0-99.0) L 09/09/21 21:00 Calcium 6.5 mg/dL (8.4-10.2) L 09/12/21 08:03 Phosphorus 6.00 mg/dL (2.5-4.5) H 09/11/21 05:55 Magnesium 1.70 mg/dL (1.7-2.3) 09/11/21 05:55 Urine Creatinine 112.8 mg/dL (0.1-20.0) H 09/10/21 11:35 Urine Total Protein 201 mg/dL (5-11.8) H 09/10/21 11:35 Medications & Allergies - Medications Allergies/Adverse Reactions: Allergies No Known Allergies Allergy (Unverified 01/17/17 01:04) Home Medications: Home Medications Medication Instructions Recorded Confirmed Last Taken Type Acetaminophen/Codeine [Tylenol #3] 1 tab PO Q6H PRN #7 tab 01/17/17 Unknown Rx Ibuprofen [Motrin] 600 mg PO Q8H PRN #15 tablet 01/17/17 Unknown Rx methOCARBAMOL [Robaxin TAB] 500 mg PO Q6H PRN #15 tablet 01/17/17 Unknown Rx Active Medications: Generic Name Dose Route Start Last Admin Trade Name Freq PRN Reason Stop Dose Admin Acetaminophen 650 mg 09/09/21 20:24 Acetaminophen 325 Mg Tab PO Q4H PRN Pain MILD(1-3)/Fever >100.5/LOCO Amlodipine Besylate 10 mg 09/11/21 12:00 09/11/21 13:31 Amlodipine 10 Mg Tab PO 10 mg QDAY LENY Administration Carvedilol 3.125 mg 09/11/21 11:00 09/11/21 23:05 Carvedilol 3.125 Mg Tab PO 3.125 mg BID LENY Administration Sodium Chloride 1,000 mls @ 75 mls/hr 09/11/21 11:45 09/11/21 23:05 Nacl 0.9% 1000 Ml IV 75 mls/hr DIRECT LENY Administration Labetalol HCl 10 mg 09/11/21 11:09 Labetalol 20 Mg/4 Ml Inj IV Q4HR PRN sbp>160 Metoclopramide HCl 10 mg 09/09/21 20:24 Metoclopramide 10 Mg/2 Ml Inj IV Q6H PRN Nausea And Vomiting Morphine Sulfate 2 mg 09/09/21 20:24 09/10/21 06:00 Morphine 2 Mg/1 Ml Inj IV 2 mg Q4H PRN Administration Pain, Moderate (4-6) Ondansetron HCl 4 mg 09/09/21 20:24 09/11/21 03:43 Ondansetron 4 Mg/2 Ml Inj IV 4 mg Q3H PRN Administration Nausea And Vomiting Pantoprazole Sodium 40 mg 09/11/21 16:30 09/11/21 19:08 Pantoprazole 40 Mg Tab PO Not Given BIDAC LENY Sodium Chloride 10 ml 09/09/21 22:00 09/11/21 23:06 Sodium Chloride 0.9% 10 Ml Flush Syringe IV 10 ml BID LENY Administration Sodium Chloride 10 ml 09/09/21 20:24 Sodium Chloride 0.9% 10 Ml Flush Syringe IV PRN PRN LINE FLUSH Tamsulosin HCl 0.8 mg 09/11/21 12:00 09/11/21 13:32 Tamsulosin 0.4 Mg Cap PO 0.8 mg QDAY LENY Administration
[2021-09-12] MEDS: TAMSULOSIN 0.4 MG CAP PO SCH (09:28)
[2021-09-12] MEDS: amLODIPine 10 MG TAB PO SCH (09:28)
[2021-09-12] MEDS: carvediloL 3.125 MG TAB PO SCH (09:28)
[2021-09-12] MEDS: PANTOPRAZOLE 40 MG TAB PO SCH ×2 (09:28→16:53)
--- NOTE | 2021-09-12 10:24 | Progress Note ---
Assessment and Plan Patient is a 61-year-old male with unknown past medical history who presented to [facility] on 09/09/2021, with dyspnea respiratory distress as well as nosebleed and vomiting, found to be in ARF with post renal obstruction NSTEMI, likely type II in the setting of acute renal failure Acute HFrEF (ef 45-50%) Anemia- s/p 4 units PRBC. On protonix gtt. Acute renal failure, requiring emergent HD - 2/2 obstructive uropathy Shortness of breath/Hypoxemia Hypertension Epistaxis Hx of ETOH abuse (son reports father quit drinking appox 6 months ago but used to drink 1-2 glasses of liquor per day) Echo 09/09/2021- There is mild global hypokinesis of the left ventricle. LVEF is 45-50%; Mild diastolic dysfunction is present (impaired relaxation pattern). Plan: NSTEMI, likely type II in setting of ARF. Troponin mildly elevated, but has downtrended. Patient denies any complaints o chest pain Patient appears euvolemic on exam. GDMT: No ACEi/ARB/ARNi in setting of renal failure. Hold off on statin for now with elevated lipase; Patient remains hypertensive. Will increase to Coreg 6.25mg PO BID. No asa due to anemia/bleeding. Recommend telemetry monitoring. Electrolyte and fluid management per nephrology. BMP in am. Strict I&O. Continue other supportive care/management per primary teams. Primary team may consider hematology consult with unknown etiology of bleeding Will plan for outpatient ischemic eval Patient seen in conjunction with Dr. Crenshaw who agrees with the assessment and management of this patient. - Patient Problems (1) Acidosis Current Visit: Yes Status: Acute (2) Acute renal failure (ARF) Current Visit: Yes Status: Acute (3) Anemia Current Visit: Yes Status: Acute (4) Epistaxis Current Visit: Yes Status: Acute (5) H/O ETOH abuse Current Visit: Yes Status: Acute (6) Hyperkalemia Current Visit: Yes Status: Acute (7) SOB (shortness of breath) Current Visit: Yes Status: Acute Subjective Date of service: 09/12/21 Principal diagnosis: anemia, acute kidney failure Interval history: Patient resting in bed in no acute distress. Patient denies any complaints of chest pain or shortness of breath Patient on the monitor Objective Vital Signs Temp Pulse Pulse Pulse Resp BP Pulse Ox 09/12/21 07:09 98 09/12/21 05:34 84 13 97 09/12/21 04:53 98.3 F 79 20 160/96 96 09/11/21 22:12 99.7 F H 98 H 20 188/115 93 09/11/21 22:00 99.7 F H 99 H 20 188/115 93 09/11/21 18:30 98.2 F 81 20 162/88 09/11/21 18:15 82 172/98 09/11/21 18:00 85 158/96 09/11/21 17:45 78 134/84 09/11/21 17:30 77 157/89 09/11/21 17:15 86 157/91 09/11/21 17:00 88 147/97 09/11/21 16:45 82 141/87 09/11/21 16:30 83 146/82 09/11/21 16:15 86 130/86 09/11/21 16:00 81 152/88 09/11/21 15:45 75 162/95 09/11/21 15:30 75 177/105 09/11/21 15:25 98.8 F 78 20 177/102 09/11/21 14:41 77 12 170/106 100 09/11/21 14:31 90 14 170/106 100 09/11/21 14:00 98.2 F 78 19 194/104 100 09/11/21 13:30 82 24 183/104 100 09/11/21 13:00 76 19 195/105 100 09/11/21 12:31 173/104 100 09/11/21 12:00 80 84 14 175/102 100 09/11/21 11:31 91 H 14 151/103 92 09/11/21 11:00 79 16 157/100 100 09/11/21 10:30 86 17 171/96 100 Pulse Ox 09/12/21 07:09 09/12/21 05:34 09/12/21 04:53 09/11/21 22:12 09/11/21 22:00 09/11/21 18:30 98 09/11/21 18:15 09/11/21 18:00 09/11/21 17:45 09/11/21 17:30 09/11/21 17:15 09/11/21 17:00 09/11/21 16:45 05/04/22 16:30 09/11/21 16:15 09/11/21 16:00 09/11/21 15:45 09/11/21 15:30 09/11/21 15:25 98 09/11/21 14:41 09/11/21 14:31 09/11/21 14:00 09/11/21 13:30 09/11/21 13:00 09/11/21 12:31 09/11/21 12:00 09/11/21 11:31 09/11/21 11:00 09/11/21 10:30 - Physical Examination General: Appears Well, No Apparent Distress HEENT: Positive: Normocephaly Neck: Positive: trachea midline Cardiac: Positive: Reg Rate and Rhythm Lungs: Positive: Normal Breath Sounds Neuro: Positive: Grossly Intact Abdomen: Positive: Soft, Active Bowel Sounds Skin: Negative: Rash Extremities: Present: upper extr. pulses. Absent: edema - Labs and Meds CBC 09/12/21 Range/Units 08:03 WBC 8.6 (4.5-11.0) K/mm3 RBC 2.93 L (3.65-5.03) M/mm3 Hgb 8.1 L (11.8-15.2) gm/dl Hct 24.6 L (35.5-45.6) % Plt Count 141 (140-440) K/mm3 Lymph # (Auto) 0.8 L (1.2-5.4) K/mm3 [place] # (Auto) 1.0 H (0.0-0.8) K/mm3 Eos # (Auto) 0.3 (0.0-0.4) K/mm3 Baso # (Auto) 0.1 (0.0-0.1) K/mm3 Comprehensive Metabolic Panel 09/12/21 Range/Units 08:03 Sodium 141 (137-145) mmol/L Potassium 3.6 (3.6-5.0) mmol/L Chloride 99.4 (98-107) mmol/L Carbon Dioxide 29 (22-30) mmol/L BUN 31 H (9-20) mg/dL Creatinine 8.4 H (0.8-1.3) mg/dL Glucose 89 (75-100) mg/dL Calcium 6.5 L (8.4-10.2) mg/dL - Imaging and Cardiology EKG: report reviewed Echo: report reviewed (ef 45-50%, mild diastolic dysfunction) - Telemetry EKG Rhythm: Sinus Rhythm - EKG Sinus rhythms and dysrhythmias: sinus rhythm (prolonged AT interval; no acute ishemic changes)
[2021-09-12] MEDS ORDERED: carvediloL 3.125 MG TAB PO SCH (10:31)
[2021-09-12] MEDS: carvediloL 6.25 MG TAB PO SCH (22:16)
[2021-09-13] MEDS: SODIUM CHLORIDE 0.9% 1000 ML 1,000 ML IV SCH (05:19)
[2021-09-13 05:50] LABS: Basophils # (Auto) 0.1 K/mm3 (0.0-0.1); Basophils % (Auto) 0.7 % (0.0-1.8); Eosinophils # (Auto) 0.5 K/mm3 (0.0-0.4); Eosinophils % (Auto) 5.6 % (0.0-4.3); Hematocrit 24.4 % (35.5-45.6); Hemoglobin 8.1 gm/dl (11.8-15.2); Lymphocytes % (Auto) 11.7 % (13.4-35.0); Mean Corpuscular HGB Conc 33 % (32-34); Mean Corpuscular Volume 85 fl (84-94); Monocytes # (Auto) 0.9 K/mm3 (0.0-0.8); Monocytes % (Auto) 11.3 % (0.0-7.3); Platelet Count 144 K/mm3 (140-440); Red Blood Count 2.88 M/mm3 (3.65-5.03); Red Cell Distribution Width 14.8 % (13.2-15.2)
[2021-09-13] MEDS: PANTOPRAZOLE 40 MG TAB PO SCH ×2 (07:48→17:03)
--- NOTE | 2021-09-13 09:27 | Progress Note ---
Assessment and Plan Severe renal failure secondary to obstructive uropathy Hyperkalemia Metabolic acidosis, now Alkalotic Uremia Acute Anemia Plan: some increase in Cr since yesterday, good UOP, no HD today, likely tomorrow if Cr and BUn cont to rise 24 hours urine creatinine clearance-pending CT AP showed BL hydronephrosis and bladder scan was positive for urinary retention. Urology consulted and placed león and recommended Flomax and to call them for león catheter removal Flomax 0.8 mg po daily Monitor post obstructive diuresis closely, monitor K, Mg and Phos with close monitoring of hypotension Renally dose medications Avoid nephrotoxic agents Strict I&O's daily Obtain daily weights Assess dialysis needs daily Continue to monitor renal function closely Subjective Date of service: 09/13/21 Principal diagnosis: anemia, acute kidney failure Interval history: making urine Objective - Vital Signs Vital signs: Vital Signs - 12hr 09/12/21 09/12/21 09/13/21 22:16 23:32 04:41 Temperature 97.6 F 97.8 F Pulse Rate 86 91 H 82 Respiratory 18 18 Rate Blood Pressure 141/91 134/79 151/95 O2 Sat by Pulse 97 96 Oximetry 09/13/21 06:53 Temperature Pulse Rate Respiratory Rate Blood Pressure O2 Sat by Pulse 99 Oximetry - Lab 09/13/21 05:24 09/13/21 05:24 Most recent lab results ABG pH 7.100 pH Units (7.350-7.450) L* 09/09/21 21:00 ABG pCO2 20.0 mm Hg 09/09/21 21:00 ABG pO2 60.9 mm Hg (80.0-90.0) L 09/09/21 21:00 ABG HCO3 6.1 mmol/L (20.0-26.0) L 09/09/21 21:00 ABG O2 Saturation 81.1 % (95.0-99.0) L 09/09/21 21:00 Calcium 6.0 mg/dL (8.4-10.2) L 09/13/21 05:24 Phosphorus 4.30 mg/dL (2.5-4.5) 09/13/21 05:24 Magnesium 1.70 mg/dL (1.7-2.3) 09/11/21 05:55 Urine Creatinine 112.8 mg/dL (0.1-20.0) H 09/10/21 11:35 Urine Total Protein 201 mg/dL (5-11.8) H 09/10/21 11:35 Medications & Allergies - Medications Allergies/Adverse Reactions: Allergies No Known Allergies Allergy (Unverified 01/17/17 01:04) Home Medications: Home Medications Medication Instructions Recorded Confirmed Last Taken Type Acetaminophen/Codeine [Tylenol #3] 1 tab PO Q6H PRN #7 tab 01/17/17 Unknown Rx Ibuprofen [Motrin] 600 mg PO Q8H PRN #15 tablet 01/17/17 Unknown Rx methOCARBAMOL [Robaxin TAB] 500 mg PO Q6H PRN #15 tablet 01/17/17 Unknown Rx Active Medications: Generic Name Dose Route Start Last Admin Trade Name Freq PRN Reason Stop Dose Admin Acetaminophen 650 mg 09/09/21 20:24 Acetaminophen 325 Mg Tab PO Q4H PRN Pain MILD(1-3)/Fever >100.5/LOCO Amlodipine Besylate 10 mg 09/11/21 12:00 09/12/21 09:28 Amlodipine 10 Mg Tab PO 10 mg QDAY LENY Administration Carvedilol 6.25 mg 09/12/21 22:00 09/12/21 22:16 Carvedilol 6.25 Mg Tab PO 6.25 mg BID LENY Administration Sodium Chloride 1,000 mls @ 75 mls/hr 09/11/21 11:45 09/13/21 05:19 Nacl 0.9% 1000 Ml IV 75 mls/hr DIRECT LENY Administration Labetalol HCl 10 mg 09/11/21 11:09 Labetalol 20 Mg/4 Ml Inj IV Q4HR PRN sbp>160 Metoclopramide HCl 10 mg 09/09/21 20:24 Metoclopramide 10 Mg/2 Ml Inj IV Q6H PRN Nausea And Vomiting Morphine Sulfate 2 mg 09/09/21 20:24 09/10/21 06:00 Morphine 2 Mg/1 Ml Inj IV 2 mg Q4H PRN Administration Pain, Moderate (4-6) Ondansetron HCl 4 mg 09/09/21 20:24 09/11/21 03:43 Ondansetron 4 Mg/2 Ml Inj IV 4 mg Q3H PRN Administration Nausea And Vomiting Pantoprazole Sodium 40 mg 09/11/21 16:30 09/13/21 07:48 Pantoprazole 40 Mg Tab PO 40 mg BIDAC LENY Administration Sodium Chloride 10 ml 09/09/21 22:00 09/12/21 22:16 Sodium Chloride 0.9% 10 Ml Flush Syringe IV 10 ml BID LENY Administration Sodium Chloride 10 ml 09/09/21 20:24 Sodium Chloride 0.9% 10 Ml Flush Syringe IV PRN PRN LINE FLUSH Tamsulosin HCl 0.8 mg 09/11/21 12:00 09/12/21 09:28 Tamsulosin 0.4 Mg Cap PO 0.8 mg QDAY LENY Administration
[2021-09-13] MEDS: carvediloL 6.25 MG TAB PO SCH ×2 (10:03→23:29)
[2021-09-13] MEDS: amLODIPine 10 MG TAB PO SCH (10:03)
[2021-09-13] MEDS: TAMSULOSIN 0.4 MG CAP PO SCH (10:03)
--- NOTE | 2021-09-13 10:32 | Progress Note ---
Assessment and Plan Patient is a 61-year-old male with unknown past medical history who presented to [facility] on 09/09/2021, with dyspnea respiratory distress as well as nosebleed and vomiting, found to be in ARF with post renal obstruction NSTEMI, likely type II in the setting of acute renal failure Acute HFrEF (ef 45-50%) Anemia- s/p 4 units PRBC. On protonix gtt. Acute renal failure, requiring emergent HD - / obstructive uropathy Shortness of breath/Hypoxemia Hypertension Epistaxis Hx of ETOH abuse (son reports father quit drinking appox 6 months ago but used to drink 1-2 glasses of liquor per day) Echo 09/09/2021- There is mild global hypokinesis of the left ventricle. LVEF is 45-50%; Mild diastolic dysfunction is present (impaired relaxation pattern). Plan: NSTEMI, likely type II in setting of ARF. Troponin mildly elevated, but has downtrended. Patient denies any complaints o chest pain Patient appears euvolemic on exam. GDMT: No ACEi/ARB/ARNi in setting of renal failure. Hold off on statin for now with elevated lipase; Patient blood pressure has improved continue Coreg 6.25mg PO BID and amlodip ine No asa due to anemia/bleeding. Recommend telemetry monitoring. Electrolyte and fluid management per nephrology. BMP in am. Strict I&O. Continue other supportive care/management per primary teams. Primary team may consider hematology consult with unknown etiology of bleeding Will plan for outpatient ischemic eval Plan of care discussed with patient and patient's who both verbalized unde rstanding and agreement We will see as needed Patient should follow-up with Dr. Crenshaw, [facility] specialists, 1 to 2 weeks after discharge. Phone #[phone] Patient seen in conjunction with Dr. Crenshaw who agrees with the assessment and management of this patient. - Patient Problems (1) Acidosis Current Visit: Yes Status: Acute (2) Acute renal failure (ARF) Current Visit: Yes Status: Acute (3) Anemia Current Visit: Yes Status: Acute (4) Epistaxis Current Visit: Yes Status: Acute (5) H/O ETOH abuse Current Visit: Yes Status: Acute (6) Hyperkalemia Current Visit: Yes Status: Acute (7) SOB (shortness of breath) Current Visit: Yes Status: Acute Subjective Date of service: 09/13/21 Principal diagnosis: anemia, acute kidney failure Interval history: Patient resting in bed in no acute distress. Patient denies any complaints of chest pain or shortness of breath Patient not on the monitor Objective Vital Signs Temp Pulse Resp BP Pulse Ox 09/13/21 06:53 99 09/13/21 04:41 97.8 F 82 18 151/95 96 09/12/21 23:32 97.6 F 91 H 18 134/79 97 09/12/21 22:16 86 141/91 09/12/21 19:00 96 09/12/21 17:13 98.5 F 87 18 164/96 97 09/12/21 11:16 98.9 F 80 18 170/100 97 - Physical Examination General: Appears Well, No Apparent Distress HEENT: Positive: Normocephaly Neck: Positive: trachea midline Cardiac: Positive: Reg Rate and Rhythm Lungs: Positive: Normal Breath Sounds Neuro: Positive: Grossly Intact Abdomen: Positive: Soft, Active Bowel Sounds Skin: Negative: Rash Extremities: Present: upper extr. pulses. Absent: edema - Labs and Meds CBC 09/13/21 Range/Units 05:24 WBC 8.3 (4.5-11.0) K/mm3 RBC 2.88 L (3.65-5.03) M/mm3 Hgb 8.1 L (11.8-15.2) gm/dl Hct 24.4 L (35.5-45.6) % Plt Count 144 (140-440) K/mm3 Lymph # (Auto) 1.0 L (1.2-5.4) K/mm3 [place] # (Auto) 0.9 H (0.0-0.8) K/mm3 Eos # (Auto) 0.5 H (0.0-0.4) K/mm3 Baso # (Auto) 0.1 (0.0-0.1) K/mm3 Comprehensive Metabolic Panel 09/13/21 Range/Units 05:24 Sodium 140 (137-145) mmol/L Potassium 3.4 L (3.6-5.0) mmol/L Chloride 99.8 (98-107) mmol/L Carbon Dioxide 25 (22-30) mmol/L BUN 42 H (9-20) mg/dL Creatinine 10.0 H (0.8-1.3) mg/dL Glucose 99 (75-100) mg/dL Calcium 6.0 L (8.4-10.2) mg/dL - Imaging and Cardiology EKG: report reviewed Echo: report reviewed (ef 45-50%, mild diastolic dysfunction) - EKG Sinus rhythms and dysrhythmias: sinus rhythm (prolonged AT interval; no acute ishemic changes)
--- NOTE | 2021-09-13 11:17 | Progress Note ---
Assessment and Plan ssessment and Plan 61 y/o male with acute respiratory failure, acute renal failure, anemia, nose bleed and hypertension. 09/13/2021: Off O2. Pulmonary potts stable. We will sign off. Please call if needed 09/11/21: Wean FiO2 to off. Pulm status is stable. Will sign off. Call if any questions or concerns. 09/10/21: Wean FiO2 to off for sats >88%. For nose bleed pack nare with gauze soaked in Afrin and leave it there for at least the next 12 hours. Follow up any new renal recs. Follow up CBC. Given CT results, likely needs urologic evaluation and some form of intervention to relieve obstruction vs IR for nephrostomy tubes, will defer to renal. They plan to continue with HD. Guarded prognosis, especially given age and prostate findings on CT. 1. Discussed case with renal. Clinically patient appears to be very dry. No león placed in the ED and when we tried to place here in unit, unable to get urine despite bladder scan showing almost of liter of fluid. Will defer to renal about this but orders for HD placed. Bp is stable. Patient is alert and oriented. He was like this prior to the placing HD catheter but is somnolent now after medication to help relax him to place the line. HD nurses on way to do HD. Will also defer to renal on if more volume is needed and if they want to involve urology. We will order a stat CT of the Abdomen Pelvis to look for hydronephrosis and possible evidence of obstruction. 2. Anemia-related to chronic disease? exact etiology unknown. MCV is low at 79. Per ED started on PPI drip. Suggest q6 hour H/H's. Transfuse with HD if done tonight. Goal HgB at this time would be 7. needs iron studies. 3. Pulm- CXR is clear but patient has hypoxemia. Could be related to nose bleed and congestion vs volume overload but as stated CXR is clear. continue supplemental o2 and wean as tolerated 4. Overall prognosis is guarded to poor. Suspect this is not acute renal injury and likely something that has been brewing for some time. Hopeful patient will tolerate all therapies. Subjective Date of service: 09/13/21 Principal diagnosis: anemia, acute kidney failure Interval history: Patient doing quite well. Now off O2 on room air with no shortness of breath or breathing symptoms Objective Vital Signs - 12hr 09/12/21 09/13/21 09/13/21 23:32 04:41 06:53 Temperature 97.6 F 97.8 F Pulse Rate 91 H 82 Respiratory 18 18 Rate Blood Pressure 134/79 151/95 O2 Sat by Pulse 97 96 99 Oximetry CBC and BMP: 09/13/21 05:24 09/13/21 05:24 ABG, PT/INR, D-dimer: ABG ABG pH 7.100 pH Units (7.350-7.450) L* 09/09/21 21:00 ABG pCO2 20.0 mm Hg 09/09/21 21:00 ABG pO2 60.9 mm Hg (80.0-90.0) L 09/09/21 21:00 ABG O2 Saturation 81.1 % (95.0-99.0) L 09/09/21 21:00 PT/INR, D-dimer PT 16.6 Sec. (12.2-14.9) H 09/09/21 18:53 INR 1.20 (0.87-1.13) H 09/09/21 18:53 D-Dimer 2203.38 ng/mlDDU (0-234) H 09/09/21 18:53 Abnormal lab findings: Abnormal Labs 09/09/21 09/09/21 09/09/21 18:53 18:53 18:53 RBC 1.89 L Hgb 4.8 L* Hct 14.9 L* MCV 79 L MCH 25 L RDW Lymph % (Auto) 11.6 L [place] % (Auto) Eos % (Auto) Lymph # (Auto) 1.0 L [place] # (Auto) Eos # (Auto) Seg Neutrophils % 81.3 H Seg Neuts % (Manual) Lymphocytes % (Manual) Nucleated RBC % Lymphocytes # (Manual) PT 16.6 H INR 1.20 H D-Dimer 2203.38 H ABG pH ABG pO2 ABG HCO3 ABG O2 Saturation ABG Base Excess ABG Hemoglobin Oxyhemoglobin Sodium 134 L Potassium 7.1 H* Chloride 83.4 L Carbon Dioxide 4 L* BUN 238 H Creatinine 48.4 H Glucose 130 H POC Glucose Lactic Acid Calcium 6.2 L Phosphorus Magnesium 2.90 H Total Creatine Kinase 1690 H CK-MB (CK-2) 21.4 H Troponin T 0.175 H* C-Reactive Protein 1.50 H NT-Pro-B Natriuret Pep 6011 H Triglycerides 177 H HDL Cholesterol 28 L Lipase 1198 H Prostate Specific Ag Urine Creatinine Urine Total Protein Crossmatch 09/09/21 09/09/21 09/09/21 18:53 20:10 20:49 RBC Hgb Hct MCV MCH RDW Lymph % (Auto) [place] % (Auto) Eos % (Auto) Lymph # (Auto) [place] # (Auto) Eos # (Auto) Seg Neutrophils % Seg Neuts % (Manual) Lymphocytes % (Manual) Nucleated RBC % Lymphocytes # (Manual) PT INR D-Dimer ABG pH ABG pO2 ABG HCO3 ABG O2 Saturation ABG Base Excess ABG Hemoglobin Oxyhemoglobin Sodium Potassium Chloride Carbon Dioxide BUN Creatinine Glucose POC Glucose Lactic Acid 2.80 H* 2.10 H* Calcium Phosphorus Magnesium Total Creatine Kinase CK-MB (CK-2) Troponin T C-Reactive Protein NT-Pro-B Natriuret Pep Triglycerides HDL Cholesterol Lipase Prostate Specific Ag Urine Creatinine Urine Total Protein Crossmatch See Detail 09/09/21 09/09/21 09/10/21 21:00 23:25 07:35 RBC Hgb Hct MCV MCH RDW Lymph % (Auto) [place] % (Auto) Eos % (Auto) Lymph # (Auto) [place] # (Auto) Eos # (Auto) Seg Neutrophils % Seg Neuts % (Manual) Lymphocytes % (Manual) Nucleated RBC % Lymphocytes # (Manual) PT INR D-Dimer ABG pH 7.100 L* ABG pO2 60.9 L ABG HCO3 6.1 L ABG O2 Saturation 81.1 L ABG Base Excess -21.5 L ABG Hemoglobin 5.0 L Oxyhemoglobin 79.7 L Sodium Potassium Chloride 95.5 L Carbon Dioxide 6 L* BUN 232 H Creatinine 43.0 H Glucose 61 L POC Glucose 147 H Lactic Acid Calcium 4.7 L* D Phosphorus Magnesium Total Creatine Kinase CK-MB (CK-2) Troponin T C-Reactive Protein NT-Pro-B Natriuret Pep Triglycerides HDL Cholesterol Lipase Prostate Specific Ag Urine Creatinine Urine Total Protein Crossmatch 09/10/21 09/10/21 09/10/21 11:35 23:11 Unknown RBC 3.01 L Hgb 8.3 L D Hct 24.5 L D MCV 81 L MCH RDW 15.9 H Lymph % (Auto) [place] % (Auto) Eos % (Auto) Lymph # (Auto) [place] # (Auto) Eos # (Auto) Seg Neutrophils % Seg Neuts % (Manual) 92.0 H Lymphocytes % (Manual) 3.0 L Nucleated RBC % 1.0 H Lymphocytes # (Manual) 0.2 L PT INR D-Dimer ABG pH ABG pO2 ABG HCO3 ABG O2 Saturation ABG Base Excess ABG Hemoglobin Oxyhemoglobin Sodium Potassium Chloride Carbon Dioxide BUN Creatinine Glucose POC Glucose Lactic Acid Calcium Phosphorus Magnesium Total Creatine Kinase CK-MB (CK-2) Troponin T 0.205 H* D C-Reactive Protein NT-Pro-B Natriuret Pep Triglycerides HDL Cholesterol Lipase Prostate Specific Ag Urine Creatinine 112.8 H Urine Total Protein 201 H Crossmatch 09/10/21 09/10/21 09/10/21 Unknown Unknown Unknown RBC Hgb Hct MCV MCH RDW Lymph % (Auto) [place] % (Auto) Eos % (Auto) Lymph # (Auto) [place] # (Auto) Eos # (Auto) Seg Neutrophils % Seg Neuts % (Manual) Lymphocytes % (Manual) Nucleated RBC % Lymphocytes # (Manual) PT INR D-Dimer ABG pH ABG pO2 ABG HCO3 ABG O2 Saturation ABG Base Excess ABG Hemoglobin Oxyhemoglobin Sodium Potassium 3.2 L D Chloride 94.6 L Carbon Dioxide 20 L D BUN 108 H Creatinine 21.1 H D Glucose 146 H POC Glucose Lactic Acid Calcium 7.1 L D Phosphorus Magnesium Total Creatine Kinase 1530 H CK-MB (CK-2) Troponin T 0.158 H* C-Reactive Protein NT-Pro-B Natriuret Pep Triglycerides HDL Cholesterol Lipase Prostate Specific Ag 5.18 H Urine Creatinine Urine Total Protein Crossmatch 09/11/21 09/11/21 09/12/21 05:55 05:55 08:03 RBC 3.07 L 2.93 L Hgb 8.4 L 8.1 L Hct 25.6 L 24.6 L MCV 83 L MCH 27 L RDW 15.4 H Lymph % (Auto) 4.6 L 9.6 L [place] % (Auto) 9.2 H 11.3 H Eos % (Auto) Lymph # (Auto) 0.3 L 0.8 L [place] # (Auto) 1.0 H Eos # (Auto) Seg Neutrophils % 85.8 H 74.8 H Seg Neuts % (Manual) Lymphocytes % (Manual) Nucleated RBC % Lymphocytes # (Manual) PT INR D-Dimer ABG pH ABG pO2 ABG HCO3 ABG O2 Saturation ABG Base Excess ABG Hemoglobin Oxyhemoglobin Sodium Potassium Chloride 94.3 L Carbon Dioxide 34 H D BUN 53 H Creatinine 12.8 H Glucose 121 H POC Glucose Lactic Acid Calcium 6.7 L Phosphorus 6.00 H Magnesium Total Creatine Kinase CK-MB (CK-2) Troponin T C-Reactive Protein NT-Pro-B Natriuret Pep Triglycerides HDL Cholesterol Lipase Prostate Specific Ag Urine Creatinine Urine Total Protein Crossmatch 09/12/21 09/13/21 09/13/21 08:03 05:24 05:24 RBC 2.88 L Hgb 8.1 L Hct 24.4 L MCV MCH RDW Lymph % (Auto) 11.7 L [place] % (Auto) 11.3 H Eos % (Auto) 5.6 H Lymph # (Auto) 1.0 L [place] # (Auto) 0.9 H Eos # (Auto) 0.5 H Seg Neutrophils % 70.7 H Seg Neuts % (Manual) Lymphocytes % (Manual) Nucleated RBC % Lymphocytes # (Manual) PT INR D-Dimer ABG pH ABG pO2 ABG HCO3 ABG O2 Saturation ABG Base Excess ABG Hemoglobin Oxyhemoglobin Sodium Potassium 3.4 L Chloride Carbon Dioxide BUN 31 H 42 H Creatinine 8.4 H 10.0 H Glucose POC Glucose Lactic Acid Calcium 6.5 L 6.0 L Phosphorus Magnesium Total Creatine Kinase CK-MB (CK-2) Troponin T C-Reactive Protein NT-Pro-B Natriuret Pep Triglycerides HDL Cholesterol Lipase Prostate Specific Ag Urine Creatinine Urine Total Protein Crossmatch
--- NOTE | 2021-09-13 13:29 | Progress Note ---
Assessment and Plan Assessment and plan: 61 years old male with past medical history of chronic kidney disease was brought to the hospital because of progressive shortness of breath as stated with vomiting and bleeding from nose for 1 day. Patient is a very poor historian. In the emergency room patient is found to have hemoglobin of 4.8 and hematocrit 14.9 also patient is found to have potassium of 7.1, bicarb 4, anion gap 54, BUN to 38 and creatinine 48.4, lactic acid 2.80. ABG shows pH 7.100, PCO2 20+0, PO2 60.9, bicarb 6.1 Subsequently Case was discussed with on-call GI doctor as well as nephrology who will do the hemodialysis immediately. We also put the patient on IMCU putting on bicarb drip, Protonix drip giving blood transfusion and consult critical care evaluation Hospital Course: 09/10: Improved on bedside encounter. Urology placed león catheter. Plan for nephrology to complete HD today. Hgb improved to 8.3, suspect anemia is purely from epistaxis, unclear if there was truly was a GI source. Will continue to monitor for other source of bleed. GI consulted, will follow recommendations. 09/11: hemoglobin stable. patient on encounter states he had recurrent epistaxis bleed leading up to hospitalization. Hgb stable this AM. Renal indices improved on bmp. Urine output 1000 cc yesterday. Troponin downtrending. D/w Dr. Juan A Martin, will d/c protonix IV, start on protonix 40 mg po bid. Transfer to floor bed. 09/12: Doing well on encounter today. on room air saturating 98%. Renal indices improving. León output approx: 2500 cc yday. [place] tingued urine noted, clearing up. hemoglobin 8.1, VSS. No plan for HD today per nephrology. We will continue to follow along for hemodialysis plan moving forward and nephrology final impression on renal prognosis. Anticipate d/c in next 24-48 hrs depending on this. Patient will likely need to be discharged with León catheter and instructions to follow-up with urology as an outpatient. 09/13: Patient remains clinically stable. Renal function appears to slightly worsened today. Nephrology noted the slight worsening. Will reevaluate in a.m. Patient undergoing 24-hour urine collection. From respiratory standpoint patient is stable acute respiratory failure secondary to fluid overload has resolved. Plan discussed with the patient in detail he verbalized understanding. 15 minutes counseling provided to the patient about continued cessation of EtOH use on lifestyle preventive care measures. We will monitor potassium level and slight of renal failure. Assessment and Plan: #Acute kidney injury due to post renal obstruction (improving) #Metabolic Acidosis (resolving) #Lactic Acidosis 2.8-> 2.1 (resolved) #Acute heart failure with preserved ejection fraction (ef 45-50%) #Hyperkalemia (resolved) #Hypokalemia #Uremia (resolved) #Urinary retention (resolving) #Prostateamegaly - BUN to 38 and creatinine 48.4 -ABG pH 7.100, PCO2 20.0, PO2 60.9, bicarb 6.1 - K: 7.1, subsequently 3.2 - LA: 2.8->2.1 -nephrology consultation - urology called for león placement - noted prostatamegaly on ctap, ordered psa elevated to 5.18 - monitor electrolytes on serial renal profile - strict I/O, close UOP monitoring - avoid nephrotoxins, renally adjust medications - bicarb gtt to be continued per nephrology direction #Acute hypoxic respiratory failure (resolved) - O2 sat as low as 56% on admission, currently on room air satting 98%, not in respiratory distress - shortness of breath likely driven by severe anemia - cxr: no acute findings. - pulmonology following #Acute metabolic encephalopathy (resolved) - likely due to uremia - improving #hypertension - elevated BP - coreg dose increased, hold linsey-i due to renal fx. #Blood loss anemia s/p 4 units prbc (stable) #Epistaxis (appears resolved) - hx of recurrent epistaxis per son, patient had increased uncontrolled bleeding for 1 day. No prior hx of GI bleed or reported blood in stool. Uremia could have precipitated bleed. - Hgb: 4.8 on admission, s/p 4 units prbc, now 8's - transfuse prn Hgb< 7. - GI consulted due to concern for GI bleed on admission - protonix gtt, start protonix 40 mg po bid - unclear if this is truly GI source, will defer to gastroenterology, D/w Dr. Juan A Martin #Type II myocardial infarction (resolved) - supply demand from anemia in the setting TIFFANIE - serial troponins ordered, downtrending. -cardiology following, no intervention at this time. #EtOH use disorder person patient stopped a few weeks ago. #Sepsis ruled out, doubt infectious etiology. History Interval history: Patient seen and examined resting comfortably sitting up having breakfast complained that he did not have any needs today. Hospitalist Physical - Physical exam Narrative exam: General appearance: Present: no acute distress, well-nourished, resting comfortably. alert, comfortable, nad. Appears stated age - EENT Eyes: Present: PERRL ENT: hearing intact, clear oral mucosa - Neck Neck: Present: supple, normal ROM, RT IJ temp dialysis catheter. - Respiratory Respiratory effort: normal Respiratory: bilateral: diminished - Cardiovascular Heart Sounds: Present: S1 & S2. Absent: rub, click - Extremities Extremities: pulses symmetrical, No edema Peripheral Pulses: within normal limits - Abdominal General gastrointestinal: Present: soft, non-tender, non-distended, normal bowel sounds Male genitourinary: Present: normal - Integumentary Integumentary: Present: clear, warm, dry - Musculoskeletal Musculoskeletal: gait normal, strength equal bilaterally - Psychiatric Psychiatric: appropriate mood/affect, intact judgment & insight - Neurologic Neurologic: CNII-XII intact, moves all extremities : león catheter in place, pink urine in león bag. - Constitutional Vitals: Temp Pulse Resp BP Pulse Ox 97.8 F 82 18 151/95 99 09/13/21 04:41 09/13/21 04:41 09/13/21 04:41 09/13/21 04:41 09/13/21 06:53 General appearance: Present: no acute distress HEART Score - HEART Score Troponin: Troponin T 0.158 ng/mL (0.00-0.029) H* 09/10/21 Unknown Results - Labs CBC & Chem 7: 09/13/21 05:24 09/13/21 05:24 Labs: Laboratory Last Values WBC 8.3 K/mm3 (4.5-11.0) 09/13/21 05:24 RBC 2.88 M/mm3 (3.65-5.03) L 09/13/21 05:24 Hgb 8.1 gm/dl (11.8-15.2) L 09/13/21 05:24 Hct 24.4 % (35.5-45.6) L 09/13/21 05:24 MCV 85 fl (84-94) 09/13/21 05:24 MCH 28 pg (28-32) 09/13/21 05:24 MCHC 33 % (32-34) 09/13/21 05:24 RDW 14.8 % (13.2-15.2) 09/13/21 05:24 Plt Count 144 K/mm3 (140-440) 09/13/21 05:24 Lymph % (Auto) 11.7 % (13.4-35.0) L 09/13/21 05:24 Posey % (Auto) 11.3 % (0.0-7.3) H 09/13/21 05:24 Eos % (Auto) 5.6 % (0.0-4.3) H 09/13/21 05:24 Baso % (Auto) 0.7 % (0.0-1.8) 09/13/21 05:24 Lymph # (Auto) 1.0 K/mm3 (1.2-5.4) L 09/13/21 05:24 Posey # (Auto) 0.9 K/mm3 (0.0-0.8) H 09/13/21 05:24 Eos # (Auto) 0.5 K/mm3 (0.0-0.4) H 09/13/21 05:24 Baso # (Auto) 0.1 K/mm3 (0.0-0.1) 09/13/21 05:24 Add Manual Diff Complete 09/10/21 Unknown Total Counted 100 09/10/21 Unknown Seg Neutrophils % 70.7 % (40.0-70.0) H 09/13/21 05:24 Seg Neuts % (Manual) 92.0 % (40.0-70.0) H 09/10/21 Unknown Band Neutrophils % 0 % 09/10/21 Unknown Lymphocytes % (Manual) 3.0 % (13.4-35.0) L 09/10/21 Unknown Reactive Lymphs % (Man) 0 % 09/10/21 Unknown Monocytes % (Manual) 5.0 % (0.0-7.3) 09/10/21 Unknown Eosinophils % (Manual) 0 % (0.0-4.3) 09/10/21 Unknown Basophils % (Manual) 0 % (0.0-1.8) 09/10/21 Unknown Metamyelocytes % 0 % 09/10/21 Unknown Myelocytes % 0 % 09/10/21 Unknown Promyelocytes % 0 % 09/10/21 Unknown Blast Cells % 0 % 09/10/21 Unknown Nucleated RBC % 1.0 % (0.0-0.9) H 09/10/21 Unknown Seg Neutrophils # 5.9 K/mm3 (1.8-7.7) 09/13/21 05:24 Seg Neutrophils # Man 7.3 K/mm3 (1.8-7.7) 09/10/21 Unknown Band Neutrophils # 0.0 K/mm3 09/10/21 Unknown Lymphocytes # (Manual) 0.2 K/mm3 (1.2-5.4) L 09/10/21 Unknown Abs React Lymphs (Man) 0.0 K/mm3 09/10/21 Unknown Monocytes # (Manual) 0.4 K/mm3 (0.0-0.8) 09/10/21 Unknown Eosinophils # (Manual) 0.0 K/mm3 (0.0-0.4) 09/10/21 Unknown Basophils # (Manual) 0.0 K/mm3 (0.0-0.1) 09/10/21 Unknown Metamyelocytes # 0.0 K/mm3 09/10/21 Unknown Myelocytes # 0.0 K/mm3 09/10/21 Unknown Promyelocytes # 0.0 K/mm3 09/10/21 Unknown Blast Cells # 0.0 K/mm3 09/10/21 Unknown WBC Morphology Not Reportable 09/10/21 Unknown Hypersegmented Neuts Not Reportable 09/10/21 Unknown Hyposegmented Neuts 1+ 09/10/21 Unknown Hypogranular Neuts Not Reportable 09/10/21 Unknown Smudge Cells Not Reportable 09/10/21 Unknown Toxic Granulation Not Reportable 09/10/21 Unknown Toxic Vacuolation Not Reportable 09/10/21 Unknown Dohle Bodies Not Reportable 09/10/21 Unknown Pelger-Huet Anomaly Not Reportable 09/10/21 Unknown Francisco Javier Rods Not Reportable 09/10/21 Unknown Platelet Estimate Consistent w auto 09/10/21 Unknown Clumped Platelets Not Reportable 09/10/21 Unknown Plt Clumps, EDTA Not Reportable 09/10/21 Unknown Large Platelets Not Reportable 09/10/21 Unknown Giant Platelets Not Reportable 09/10/21 Unknown Platelet Satelliting Not Reportable 09/10/21 Unknown Plt Morphology Comment Not Reportable 09/10/21 Unknown RBC Morphology Not Reportable 09/10/21 Unknown Dimorphic RBCs Not Reportable 09/10/21 Unknown Polychromasia Not Reportable 09/10/21 Unknown Hypochromasia 1+ 09/10/21 Unknown Poikilocytosis Few 09/10/21 Unknown Anisocytosis Not Reportable 09/10/21 Unknown Microcytosis Not Reportable 09/10/21 Unknown Macrocytosis Not Reportable 09/10/21 Unknown Spherocytes Not Reportable 09/10/21 Unknown Pappenheimer Bodies Not Reportable 09/10/21 Unknown Sickle Cells Not Reportable 09/10/21 Unknown Target Cells Rare 09/10/21 Unknown Tear Drop Cells Not Reportable 09/10/21 Unknown Ovalocytes Not Reportable 09/10/21 Unknown Stomatocytes Rare 09/10/21 Unknown Helmet Cells Not Reportable 09/10/21 Unknown [place] Bodies Not Reportable 09/10/21 Unknown [place] Rings Not Reportable 09/10/21 Unknown Vika Cells Not Reportable 09/10/21 Unknown Bite Cells Not Reportable 09/10/21 Unknown Crenated Cell Not Reportable 09/10/21 Unknown Elliptocytes Not Reportable 09/10/21 Unknown Acanthocytes (Spur) Not Reportable 09/10/21 Unknown Rouleaux Not Reportable 09/10/21 Unknown Hemoglobin C Crystals Not Reportable 09/10/21 Unknown Schistocytes Not Reportable 09/10/21 Unknown Malaria parasites Not Reportable 09/10/21 Unknown Jose Bodies Not Reportable 09/10/21 Unknown Hem Pathologist Commnt No 09/10/21 Unknown PT 16.6 Sec. (12.2-14.9) H 09/09/21 18:53 INR 1.20 (0.87-1.13) H 09/09/21 18:53 D-Dimer 2203.38 ng/mlDDU (0-234) H 09/09/21 18:53 ABG pH 7.100 pH Units (7.350-7.450) L* 09/09/21 21:00 ABG pCO2 20.0 mm Hg 09/09/21 21:00 ABG pO2 60.9 mm Hg (80.0-90.0) L 09/09/21 21:00 ABG HCO3 6.1 mmol/L (20.0-26.0) L 09/09/21 21:00 ABG O2 Saturation 81.1 % (95.0-99.0) L 09/09/21 21:00 ABG O2 Content 4.8 (0.0-44) 09/09/21 21:00 ABG Base Excess -21.5 mmol/L (-2.0-3.0) L 09/09/21 21:00 ABG Hemoglobin 5.0 gm/dl (14.0-18.0) L 09/09/21 21:00 ABG Carboxyhemoglobin 1.3 % (0.0-5.0) 09/09/21 21:00 ABG Methemoglobin 0.5 % (0.0-1.5) 09/09/21 21:00 Oxyhemoglobin 79.7 % (95.0-99.0) L 09/09/21 21:00 FiO2 28 % 09/09/21 21:00 Sodium 140 mmol/L (137-145) 09/13/21 05:24 Potassium 3.4 mmol/L (3.6-5.0) L 09/13/21 05:24 Chloride 99.8 mmol/L (98-107) 09/13/21 05:24 Carbon Dioxide 25 mmol/L (22-30) 09/13/21 05:24 Anion Gap 19 mmol/L 09/13/21 05:24 BUN 42 mg/dL (9-20) H 09/13/21 05:24 Creatinine 10.0 mg/dL (0.8-1.3) H 09/13/21 05:24 Estimated GFR 6 ml/min 09/13/21 05:24 BUN/Creatinine Ratio 4 % 09/13/21 05:24 Glucose 99 mg/dL (75-100) 09/13/21 05:24 POC Glucose 147 mg/dL (70-105) H 09/10/21 07:35 Lactic Acid 2.10 mmol/L (0.7-2.0) H* 09/09/21 20:49 Calcium 6.0 mg/dL (8.4-10.2) L 09/13/21 05:24 Phosphorus 4.30 mg/dL (2.5-4.5) 09/13/21 05:24 Magnesium 1.70 mg/dL (1.7-2.3) 09/11/21 05:55 Total Bilirubin 0.30 mg/dL (0.1-1.2) 09/09/21 18:53 AST 17 units/L (5-40) 09/09/21 18:53 ALT 19 units/L (7-56) 09/09/21 18:53 Alkaline Phosphatase 57 units/L (35-129) 09/09/21 18:53 Ammonia 39.0 umol/L (25-60) 09/09/21 19:02 Total Creatine Kinase 1530 units/L (55-170) H 09/10/21 Unknown CK-MB (CK-2) 21.4 ng/mL (0.0-4.0) H 09/09/21 18:53 CK-MB (CK-2) Rel Index 1.2 (0-4) 09/09/21 18:53 Troponin T 0.158 ng/mL (0.00-0.029) H* 09/10/21 Unknown C-Reactive Protein 1.50 mg/dL (0.00-1.30) H 09/09/21 18:53 NT-Pro-B Natriuret Pep 6011 pg/mL (0-900) H 09/09/21 18:53 Total Protein 7.4 g/dL (6.3-8.2) 09/09/21 18:53 Albumin 4.2 g/dL (3.9-5) 09/09/21 18:53 Albumin/Globulin Ratio 1.3 % 09/09/21 18:53 Triglycerides 177 mg/dL (2-149) H 09/09/21 18:53 Cholesterol 170 mg/dL (50-199) 09/09/21 18:53 LDL Cholesterol Direct 107 mg/dL (50-130) 09/09/21 18:53 HDL Cholesterol 28 mg/dL (40-59) L 09/09/21 18:53 Cholesterol/HDL Ratio 6.07 % 09/09/21 18:53 Lipase 1198 units/L (13-60) H 09/09/21 18:53 Prostate Specific Ag 5.18 ng/mL (0.00-4.00) H 09/10/21 Unknown Urine Color Straw (Yellow) 09/09/21 11:35 Urine Turbidity Clear (Clear) 09/09/21 11:35 Urine pH 6.0 (5.0-7.0) 09/09/21 11:35 Ur Specific [place] 1.011 (1.003-1.030) 09/09/21 11:35 Urine Protein 100 mg/dl mg/dL (Negative) 09/09/21 11:35 Urine Glucose (UA) 50 mg/dL (Negative) 09/09/21 11:35 Urine Ketones Neg mg/dL (Negative) 09/09/21 11:35 Urine Blood Mod (Negative) 09/09/21 11:35 Urine Nitrite Neg (Negative) 09/09/21 11:35 Urine Bilirubin Neg (Negative) 09/09/21 11:35 Urine Urobilinogen < 2.0 mg/dL (<2.0) 09/09/21 11:35 Ur Leukocyte Esterase Neg (Negative) 09/09/21 11:35 Urine WBC (Auto) 2.0 /HPF (0.0-6.0) 09/09/21 11:35 Urine RBC (Auto) 11.0 /HPF (0.0-6.0) 09/09/21 11:35 Urine Creatinine 112.8 mg/dL (0.1-20.0) H 09/10/21 11:35 Protein/Creatinin Ratio 1.78 09/10/21 11:35 Urine Total Protein 201 mg/dL (5-11.8) H 09/10/21 11:35 Urine Opiates Screen Presumptive negative 09/10/21 11:35 Urine Methadone Screen Presumptive negative 09/10/21 11:35 Ur Barbiturates Screen Presumptive negative 09/10/21 11:35 Ur Phencyclidine Scrn Presumptive negative 09/10/21 11:35 Ur Amphetamines Screen Presumptive negative 09/10/21 11:35 U Benzodiazepines Scrn Presumptive negative 09/10/21 11:35 Urine Cocaine Screen Presumptive negative 09/10/21 11:35 U Marijuana (THC) Screen Presumptive negative 09/10/21 11:35 Drugs of Abuse Note Disclamer 09/10/21 11:35 Plasma/Serum Alcohol < 0.01 % (0-0.07) 09/10/21 11:35 Hep Bs Antigen Non-reactive (Negative) 09/09/21 20:55 Hep B Core IgM Ab Non-reactive (NonReactive) 09/09/21 20:55 Hepatitis C Antibody Non-reactive (NonReactive) 09/09/21 20:55 Blood Type O POSITIVE 09/09/21 20:10 Antibody Screen Negative 09/09/21 20:10 Crossmatch See Detail 09/09/21 20:10 León/IV: Voiding Method Indwelling Catheter Active Medications - Current Medications Current Medications: Generic Name Dose Route Start Last Admin Trade Name Freq PRN Reason Stop Dose Admin Acetaminophen 650 mg 09/09/21 20:24 Acetaminophen 325 Mg Tab PO Q4H PRN Pain MILD(1-3)/Fever >100.5/LOCO Amlodipine Besylate 10 mg 09/11/21 12:00 09/13/21 10:03 Amlodipine 10 Mg Tab PO 10 mg QDAY LENY Administration Carvedilol 6.25 mg 09/12/21 22:00 09/13/21 10:03 Carvedilol 6.25 Mg Tab PO 6.25 mg BID LENY Administration Sodium Chloride 1,000 mls @ 75 mls/hr 09/11/21 11:45 09/13/21 05:19 Nacl 0.9% 1000 Ml IV 75 mls/hr DIRECT LENY Administration Labetalol HCl 10 mg 09/11/21 11:09 Labetalol 20 Mg/4 Ml Inj IV Q4HR PRN sbp>160 Metoclopramide HCl 10 mg 09/09/21 20:24 Metoclopramide 10 Mg/2 Ml Inj IV Q6H PRN Nausea And Vomiting Morphine Sulfate 2 mg 09/09/21 20:24 09/10/21 06:00 Morphine 2 Mg/1 Ml Inj IV 2 mg Q4H PRN Administration Pain, Moderate (4-6) Ondansetron HCl 4 mg 09/09/21 20:24 09/11/21 03:43 Ondansetron 4 Mg/2 Ml Inj IV 4 mg Q3H PRN Administration Nausea And Vomiting Pantoprazole Sodium 40 mg 09/11/21 16:30 09/13/21 07:48 Pantoprazole 40 Mg Tab PO 40 mg BIDAC LENY Administration Sodium Chloride 10 ml 09/09/21 22:00 09/13/21 10:03 Sodium Chloride 0.9% 10 Ml Flush Syringe IV 10 ml BID LENY Administration Sodium Chloride 10 ml 09/09/21 20:24 Sodium Chloride 0.9% 10 Ml Flush Syringe IV PRN PRN LINE FLUSH Tamsulosin HCl 0.8 mg 09/11/21 12:00 09/13/21 10:03 Tamsulosin 0.4 Mg Cap PO 0.8 mg QDAY LENY Administration Nutrition/Malnutrition Assess - Dietary Evaluation Nutrition/Malnutrition Findings: Nutrition Notes Start: 09/10/21 15:32 Freq: Status: Active Protocol: Document 09/10/21 15:32 VANESSA (Rec: 09/10/21 16:25 VANESSA [id number]) Nutrition Notes 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 Current Diet NPO (since 09/09 20:25). Labs/Tests 09/10: K 3.2, Cl 94.6, CO2 20, BUN 108, Crea 21.1, Glu 146, Ca 7.1. Pertinent Medications 09/10: Ca-Gluconate 1 g/ns 100 ml @ 300 ml/hr, others nutritionally unremarkable. Height 5 ft 8 in Weight 58.967 kg [place] Body Weight (kg) 70.00 BMI 19.8 Intake Prior to Admission Good Weight change and time frame Pt states having, unintentionally, loss between 14 and 23 lb recently. Weight Status Appropriate Subjective/Other Information RD consult for skin risk and risk of malnutrition assessments. Pt currently on NPO. I recommend advance to Renal Diet, when pertinent. Pt on Nasal Cannula, O2 saturation @ 95%, according to Physical Assessment History notes. Pt shows no signs of concern for skin risk at the time, according to Physical Assessment History notes. Pt shows no signs of concer for risk of malnutrition at the time, according to Physical Assessment History notes. Procedure on 09/09: R-IJ VasCath placement. Well tolerated, according to Procedure notes. Pt consition improved on 09/10 , León catheter placed, Hgb improved as anemia was associated to Epistaxis and no to tother source of GI bleed, according to Progress notes. Percent of energy/protein needs met: Pt currently on NPO. Prescribed Renal Diet provides for energy/protein needs (2, 072 Kcal/77 g) during LOS; additionally, Dietary Supplements will compensate for possible poor or insufficient PO intake of meals with 850 Kcal and 38 g of protein. Burn Absent Trauma Absent GI Symptoms None Food Allergy No Skin Integrity/Comment Assessment WNL. Current % PO Other Minimum of two criteria No Interpretation of Weight Loss (severe) >10% in 6 months Protein-Calorie Malnutrition N\A #1 Nutrition Diagnosis Increased nutrient needs ( specify in comment below) Comments: Protein to support blood replenishment. Will assess Pt's PO intake of meals and the eventual need for dietary supplementation at F/U. Etiology Significant loss of blood. As Evidenced by Signs and Symptoms Significant anemia lab values and long lasting Epistaxis Is patient on ventilator? No Is Patient Ambulatory and/or Out of Bed Yes REE-([place]-St. Jeor-ambulatory/OOB) [ [id number] [id number]] Calculation Used for Recommendations [place]-St Jeor Additional Notes Protein: 1.2-2 g/Kg IBW; 84- 140 g/day. Fluids: 1 ml/Kcal, or as per MD. Nutrition Intervention Change Diet Order: When pertinent, advance to Renal Diet. Add Supplement/Snack (indicate name/kcal When pertinent, 8 fl oz Nepro /protein ) w/CARBSTEADY; BID. Provides kCal: 850 Provides Protein (gm) 38 Goal #1 Support, through dietary supplementation, hematological balance processes during LOS. Goal #2 Adjust the dietary intervention to better serve Pt's needs and clinical conditions during LOS. Goal #3 Maintain body weight within +/ -3% of admission body weight during LOS. Follow-Up By: 09/13/21 Additional Comments When pertinent, start monitoring food tolerance, %PO intake of meals, and BM.
[2021-09-14 05:39] LABS: Basophils # (Auto) 0.1 K/mm3 (0.0-0.1); Basophils % (Auto) 0.9 % (0.0-1.8); Eosinophils # (Auto) 0.3 K/mm3 (0.0-0.4); Hematocrit 22.7 % (35.5-45.6); Hemoglobin 7.3 gm/dl (11.8-15.2); Lymphocytes # (Auto) 0.9 K/mm3 (1.2-5.4); Lymphocytes % (Auto) 10.9 % (13.4-35.0); Mean Corpuscular HGB Conc 32 % (32-34); Mean Corpuscular Volume 86 fl (84-94); Monocytes # (Auto) 1.1 K/mm3 (0.0-0.8); Monocytes % (Auto) 12.6 % (0.0-7.3); Platelet Count 164 K/mm3 (140-440); Red Blood Count 2.65 M/mm3 (3.65-5.03); Red Cell Distribution Width 15.1 % (13.2-15.2)
[2021-09-14 06:21] LABS: Calcium 5.1 mg/dL (8.4-10.2)
[2021-09-14] MEDS ORDERED: CALC GLUCONATE 1GM/NS 100 ML 1 GM/100 ML BAG IV ONE (08:00)
[2021-09-14] MEDS ORDERED: CALCIUM GLUCONATE 1,000 MG in SODIUM CHLORIDE 0.9% 100 ML IV ONE (08:00)
[2021-09-14] MEDS ORDERED: CALCIUM CHLORIDE 1,000 MG in SODIUM CHLORIDE 0.9% 100 ML IV ONE (08:14)
[2021-09-14] MEDS ORDERED: POTASSIUM CHLORIDE ER 20 MEQ TAB PO ONE (09:00)
[2021-09-14] MEDS ORDERED: METOCLOPRAMIDE 10 MG/2 ML INJ IV PRN (09:00)
[2021-09-14] MEDS: TAMSULOSIN 0.4 MG CAP PO SCH (09:41)
[2021-09-14] MEDS: carvediloL 6.25 MG TAB PO SCH ×2 (09:41→21:00)
[2021-09-14] MEDS: amLODIPine 10 MG TAB PO SCH (09:41)
[2021-09-14] MEDS: PANTOPRAZOLE 40 MG TAB PO SCH (09:41)
[2021-09-14] MEDS ORDERED: SODIUM CHLORIDE 0.9% 100 ML IV PRN (09:58)
--- NOTE | 2021-09-14 11:08 | Progress Note ---
Assessment and Plan Severe renal failure secondary to obstructive uropathy Hyperkalemia Metabolic acidosis, now Alkalotic Uremia Acute Anemia Plan: some increase in Cr since yesterday, HD today Replace Calcium, check PTH and 25 OH Vit D, start calcitriol 24 hours urine creatinine clearance-pending CT AP showed BL hydronephrosis and bladder scan was positive for urinary retention. Urology consulted and placed león and recommended Flomax and to call them for león catheter removal Flomax 0.8 mg po daily Monitor post obstructive diuresis closely, monitor K, Mg and Phos with close monitoring of hypotension Renally dose medications Avoid nephrotoxic agents Strict I&O's daily Obtain daily weights Assess dialysis needs daily Continue to monitor renal function closely Subjective Date of service: 09/14/21 Principal diagnosis: anemia, acute kidney failure Interval history: HD today. Making urine. Objective - Exam Narrative Exam: - Physical exam Narrative exam: General appearance: Present: no acute distress, well-nourished, resting comfortably. alert, comfortable, nad. Appears stated age - EENT Eyes: Present: PERRL ENT: hearing intact, clear oral mucosa - Neck Neck: Present: supple, normal ROM, RT IJ temp dialysis catheter. - Respiratory Respiratory effort: normal Respiratory: bilateral: diminished - Cardiovascular Heart Sounds: Present: S1 & S2. Absent: rub, click - Extremities Extremities: pulses symmetrical, No edema Peripheral Pulses: within normal limits - Abdominal General gastrointestinal: Present: soft, non-tender, non-distended, normal bowel sounds Male genitourinary: Present: normal - Integumentary Integumentary: Present: clear, warm, dry - Musculoskeletal Musculoskeletal: gait normal, strength equal bilaterally - Psychiatric Psychiatric: appropriate mood/affect, intact judgment & insight - Neurologic Neurologic: CNII-XII intact, moves all extremities - Vital Signs Vital signs: Vital Signs - 12hr 09/13/21 09/14/21 09/14/21 23:29 04:57 09:41 Temperature 97.8 F Pulse Rate 87 86 88 Respiratory 18 Rate Blood Pressure 132/82 149/91 148/82 O2 Sat by Pulse 97 Oximetry 09/14/21 09/14/21 09/14/21 09:46 10:31 10:53 Temperature 97.7 F 97.9 F Pulse Rate 90 94 H Respiratory 18 18 20 Rate Blood Pressure 148/82 152/91 O2 Sat by Pulse 97 98 96 Oximetry - Lab 09/14/21 05:16 09/14/21 05:16 Most recent lab results ABG pH 7.100 pH Units (7.350-7.450) L* 09/09/21 21:00 ABG pCO2 20.0 mm Hg 09/09/21 21:00 ABG pO2 60.9 mm Hg (80.0-90.0) L 09/09/21 21:00 ABG HCO3 6.1 mmol/L (20.0-26.0) L 09/09/21 21:00 ABG O2 Saturation 81.1 % (95.0-99.0) L 09/09/21 21:00 Calcium 5.1 mg/dL (8.4-10.2) L* 09/14/21 05:16 Phosphorus 3.80 mg/dL (2.5-4.5) 09/14/21 05:16 Magnesium 1.70 mg/dL (1.7-2.3) 09/11/21 05:55 Urine Creatinine 112.8 mg/dL (0.1-20.0) H 09/10/21 11:35 Urine Total Protein 201 mg/dL (5-11.8) H 09/10/21 11:35 Medications & Allergies - Medications Allergies/Adverse Reactions: Allergies No Known Allergies Allergy (Unverified 01/17/17 01:04) Home Medications: Home Medications Medication Instructions Recorded Confirmed Last Taken Type Acetaminophen/Codeine [Tylenol #3] 1 tab PO Q6H PRN #7 tab 01/17/17 09/14/21 Unknown Rx Ibuprofen [Motrin] 600 mg PO Q8H PRN #15 tablet 01/17/17 09/14/21 Unknown Rx methOCARBAMOL [Robaxin TAB] 500 mg PO Q6H PRN #15 tablet 01/17/17 09/14/21 Unknown Rx Active Medications: Generic Name Dose Route Start Last Admin Trade Name Freq PRN Reason Stop Dose Admin Acetaminophen 650 mg 09/09/21 20:24 Acetaminophen 325 Mg Tab PO Q4H PRN Pain MILD(1-3)/Fever >100.5/LOCO Amlodipine Besylate 10 mg 09/11/21 12:00 09/14/21 09:41 Amlodipine 10 Mg Tab PO 10 mg QDAY LENY Administration Carvedilol 6.25 mg 09/12/21 22:00 09/14/21 09:41 Carvedilol 6.25 Mg Tab PO 6.25 mg BID LENY Administration Sodium Chloride 1,000 mls @ 75 mls/hr 09/11/21 11:45 09/13/21 05:19 Nacl 0.9% 1000 Ml IV 75 mls/hr DIRECT LENY Administration Sodium Chloride 100 mls @ 999 mls/hr 09/14/21 09:58 Nacl 0.9% IV AMRTI PRN Hypotension Labetalol HCl 10 mg 09/11/21 11:09 Labetalol 20 Mg/4 Ml Inj IV Q4HR PRN sbp>160 Metoclopramide HCl 5 mg 09/14/21 09:00 Metoclopramide 10 Mg/2 Ml Inj IV Q8H PRN Nausea And Vomiting Morphine Sulfate 2 mg 09/09/21 20:24 09/10/21 06:00 Morphine 2 Mg/1 Ml Inj IV 2 mg Q4H PRN Administration Pain, Moderate (4-6) Ondansetron HCl 4 mg 09/09/21 20:24 09/11/21 03:43 Ondansetron 4 Mg/2 Ml Inj IV 4 mg Q3H PRN Administration Nausea And Vomiting Pantoprazole Sodium 40 mg 09/11/21 16:30 09/14/21 09:41 Pantoprazole 40 Mg Tab PO 40 mg BIDAC LENY Administration Sodium Chloride 10 ml 09/09/21 22:00 09/14/21 09:48 Sodium Chloride 0.9% 10 Ml Flush Syringe IV 10 ml BID LENY Administration Sodium Chloride 10 ml 09/09/21 20:24 Sodium Chloride 0.9% 10 Ml Flush Syringe IV PRN PRN LINE FLUSH Tamsulosin HCl 0.8 mg 09/11/21 12:00 09/14/21 09:41 Tamsulosin 0.4 Mg Cap PO 0.8 mg QDAY LENY Administration
--- NOTE | 2021-09-14 11:58 | Progress Note ---
Assessment and Plan Assessment and plan: 61 years old male with past medical history of chronic kidney disease was brought to the hospital because of progressive shortness of breath as stated with vomiting and bleeding from nose for 1 day. Patient is a very poor historian. In the emergency room patient is found to have hemoglobin of 4.8 and hematocrit 14.9 also patient is found to have potassium of 7.1, bicarb 4, anion gap 54, BUN to 38 and creatinine 48.4, lactic acid 2.80. ABG shows pH 7.100, PCO2 20+0, PO2 60.9, bicarb 6.1 Subsequently Case was discussed with on-call GI doctor as well as nephrology who will do the hemodialysis immediately. We also put the patient on IMCU putting on bicarb drip, Protonix drip giving blood transfusion and consult critical care evaluation Hospital Course: 09/10: Improved on bedside encounter. Urology placed león catheter. Plan for nephrology to complete HD today. Hgb improved to 8.3, suspect anemia is purely from epistaxis, unclear if there was truly was a GI source. Will continue to monitor for other source of bleed. GI consulted, will follow recommendations. 09/11: hemoglobin stable. patient on encounter states he had recurrent epistaxis bleed leading up to hospitalization. Hgb stable this AM. Renal indices improved on bmp. Urine output 1000 cc yesterday. Troponin downtrending. D/w Dr. Juan A Martin, will d/c protonix IV, start on protonix 40 mg po bid. Transfer to floor bed. 09/12: Doing well on encounter today. on room air saturating 98%. Renal indices improving. León output approx: 2500 cc yday. [place] tingued urine noted, clearing up. hemoglobin 8.1, VSS. No plan for HD today per nephrology. We will continue to follow along for hemodialysis plan moving forward and nephrology final impression on renal prognosis. Anticipate d/c in next 24-48 hrs depending on this. Patient will likely need to be discharged with León catheter and instructions to follow-up with urology as an outpatient. 09/13: Patient remains clinically stable. Renal function appears to slightly worsened today. Nephrology noted the slight worsening. Will reevaluate in a.m. Patient undergoing 24-hour urine collection. From respiratory standpoint patient is stable acute respiratory failure secondary to fluid overload has resolved. Plan discussed with the patient in detail he verbalized understanding. 15 minutes counseling provided to the patient about continued cessation of EtOH use on lifestyle preventive care measures. We will monitor potassium level and slight of renal failure. 09/14: Patient seen and examined this morning hypokalemia persist also hy pocalcemia we will replace both potassium and calcium. Patient advised by sleeve separator that he will be having dialysis today as creatinine is gradually creeping back up to 11.2 today. León remains in place with good urine output. Patient understands he will have to go home with a León and follow-up with urologist. Based on discussion with nephrology will determine if her permacath needs to be placed prior to discharge. I have also updated the and answered all questions. At this time awaiting renal recovery if possible. We will continue to monitor H&H Assessment and Plan: #Acute kidney injury due to post renal obstruction (improving) #Metabolic Acidosis (resolving) #Lactic Acidosis 2.8-> 2.1 (resolved) #Acute heart failure with preserved ejection fraction (ef 45-50%) #Hyperkalemia (resolved) #Hypokalemia #Uremia (resolved) #Urinary retention (resolving) #Hypocalcemia #Prostateamegaly - BUN to 38 and creatinine 48.4 -ABG pH 7.100, PCO2 20.0, PO2 60.9, bicarb 6.1 - K: 7.1, subsequently 3.2 - LA: 2.8->2.1 -nephrology consultation - urology called for león placement - noted prostatamegaly on ctap, ordered psa elevated to 5.18 - monitor electrolytes on serial renal profile - strict I/O, close UOP monitoring - avoid nephrotoxins, renally adjust medications - bicarb gtt to be continued per nephrology direction #Acute hypoxic respiratory failure (resolved) - O2 sat as low as 56% on admission, currently on room air satting 98%, not in respiratory distress - shortness of breath likely driven by severe anemia - cxr: no acute findings. - pulmonology following #Acute metabolic encephalopathy (resolved) - likely due to uremia - improving #hypertension - elevated BP - coreg dose increased, hold linsey-i due to renal fx. #Blood loss anemia s/p 4 units prbc (stable) likely secondary to renal failure #Epistaxis (appears resolved) - hx of recurrent epistaxis per son, patient had increased uncontrolled bleeding for 1 day. No prior hx of GI bleed or reported blood in stool. Uremia could have precipitated bleed. - Hgb: 4.8 on admission, s/p 4 units prbc, now 8's - transfuse prn Hgb< 7. - GI consulted due to concern for GI bleed on admission - protonix gtt, start protonix 40 mg po bid - unclear if this is truly GI source, will defer to gastroenterology, D/w Dr. Juan A Martin #Type II myocardial infarction (resolved) - supply demand from anemia in the setting TIFFANIE - serial troponins ordered, downtrending. -cardiology following, no intervention at this time. #EtOH use disorder person patient stopped a few weeks ago. #Sepsis ruled out, doubt infectious etiology. History Interval history: Patient seen and examined resting comfortably sitting up having breakfast no new complaints today . Hospitalist Physical - Physical exam Narrative exam: General appearance: Present: no acute distress, well-nourished, resting comfort ably. alert, comfortable, nad. Appears stated age - EENT Eyes: Present: PERRL ENT: hearing intact, clear oral mucosa - Neck Neck: Present: supple, normal ROM, RT IJ temp dialysis catheter. - Respiratory Respiratory effort: normal Respiratory: bilateral: diminished - Cardiovascular Heart Sounds: Present: S1 & S2. Absent: rub, click - Extremities Extremities: pulses symmetrical, No edema Peripheral Pulses: within normal limits - Abdominal General gastrointestinal: Present: soft, non-tender, non-distended, normal bowel sounds Male genitourinary: Present: normal - Integumentary Integumentary: Present: clear, warm, dry - Musculoskeletal Musculoskeletal: gait normal, strength equal bilaterally - Psychiatric Psychiatric: appropriate mood/affect, intact judgment & insight - Neurologic Neurologic: CNII-XII intact, moves all extremities : león catheter in place, pink urine in león bag. - Constitutional Vitals: Temp Pulse Resp BP Pulse Ox 97.9 F 94 H 20 152/91 96 09/14/21 10:53 09/14/21 10:53 09/14/21 10:53 09/14/21 10:53 09/14/21 10:53 General appearance: Present: no acute distress HEART Score - HEART Score Troponin: Troponin T 0.158 ng/mL (0.00-0.029) H* 09/10/21 Unknown Results - Labs CBC & Chem 7: 09/14/21 05:16 09/14/21 05:16 Labs: Laboratory Last Values WBC 8.4 K/mm3 (4.5-11.0) 09/14/21 05:16 RBC 2.65 M/mm3 (3.65-5.03) L 09/14/21 05:16 Hgb 7.3 gm/dl (11.8-15.2) L 09/14/21 05:16 Hct 22.7 % (35.5-45.6) L 09/14/21 05:16 MCV 86 fl (84-94) 09/14/21 05:16 MCH 27 pg (28-32) L 09/14/21 05:16 MCHC 32 % (32-34) 09/14/21 05:16 RDW 15.1 % (13.2-15.2) 09/14/21 05:16 Plt Count 164 K/mm3 (140-440) 09/14/21 05:16 Lymph % (Auto) 10.9 % (13.4-35.0) L 09/14/21 05:16 [place] % (Auto) 12.6 % (0.0-7.3) H 09/14/21 05:16 Eos % (Auto) 4.0 % (0.0-4.3) 09/14/21 05:16 Baso % (Auto) 0.9 % (0.0-1.8) 09/14/21 05:16 Lymph # (Auto) 0.9 K/mm3 (1.2-5.4) L 09/14/21 05:16 [place] # (Auto) 1.1 K/mm3 (0.0-0.8) H 09/14/21 05:16 Eos # (Auto) 0.3 K/mm3 (0.0-0.4) 09/14/21 05:16 Baso # (Auto) 0.1 K/mm3 (0.0-0.1) 09/14/21 05:16 Add Manual Diff Complete 09/10/21 Unknown Total Counted 100 09/10/21 Unknown Seg Neutrophils % 71.6 % (40.0-70.0) H 09/14/21 05:16 Seg Neuts % (Manual) 92.0 % (40.0-70.0) H 09/10/21 Unknown Band Neutrophils % 0 % 09/10/21 Unknown Lymphocytes % (Manual) 3.0 % (13.4-35.0) L 09/10/21 Unknown Reactive Lymphs % (Man) 0 % 09/10/21 Unknown Monocytes % (Manual) 5.0 % (0.0-7.3) 09/10/21 Unknown Eosinophils % (Manual) 0 % (0.0-4.3) 09/10/21 Unknown Basophils % (Manual) 0 % (0.0-1.8) 09/10/21 Unknown Metamyelocytes % 0 % 09/10/21 Unknown Myelocytes % 0 % 09/10/21 Unknown Promyelocytes % 0 % 09/10/21 Unknown Blast Cells % 0 % 09/10/21 Unknown Nucleated RBC % 1.0 % (0.0-0.9) H 09/10/21 Unknown Seg Neutrophils # 6.0 K/mm3 (1.8-7.7) 09/14/21 05:16 Seg Neutrophils # Man 7.3 K/mm3 (1.8-7.7) 09/10/21 Unknown Band Neutrophils # 0.0 K/mm3 09/10/21 Unknown Lymphocytes # (Manual) 0.2 K/mm3 (1.2-5.4) L 09/10/21 Unknown Abs React Lymphs (Man) 0.0 K/mm3 09/10/21 Unknown Monocytes # (Manual) 0.4 K/mm3 (0.0-0.8) 09/10/21 Unknown Eosinophils # (Manual) 0.0 K/mm3 (0.0-0.4) 09/10/21 Unknown Basophils # (Manual) 0.0 K/mm3 (0.0-0.1) 09/10/21 Unknown Metamyelocytes # 0.0 K/mm3 09/10/21 Unknown Myelocytes # 0.0 K/mm3 09/10/21 Unknown Promyelocytes # 0.0 K/mm3 09/10/21 Unknown Blast Cells # 0.0 K/mm3 09/10/21 Unknown WBC Morphology Not Reportable 09/10/21 Unknown Hypersegmented Neuts Not Reportable 09/10/21 Unknown Hyposegmented Neuts 1+ 09/10/21 Unknown Hypogranular Neuts Not Reportable 09/10/21 Unknown Smudge Cells Not Reportable 09/10/21 Unknown Toxic Granulation Not Reportable 09/10/21 Unknown Toxic Vacuolation Not Reportable 09/10/21 Unknown Dohle Bodies Not Reportable 09/10/21 Unknown Pelger-Huet Anomaly Not Reportable 09/10/21 Unknown Francisco Javier Rods Not Reportable 09/10/21 Unknown Platelet Estimate Consistent w auto 09/10/21 Unknown Clumped Platelets Not Reportable 09/10/21 Unknown Plt Clumps, EDTA Not Reportable 09/10/21 Unknown Large Platelets Not Reportable 09/10/21 Unknown Giant Platelets Not Reportable 09/10/21 Unknown Platelet Satelliting Not Reportable 09/10/21 Unknown Plt Morphology Comment Not Reportable 09/10/21 Unknown RBC Morphology Not Reportable 09/10/21 Unknown Dimorphic RBCs Not Reportable 09/10/21 Unknown Polychromasia Not Reportable 09/10/21 Unknown Hypochromasia 1+ 09/10/21 Unknown Poikilocytosis Few 09/10/21 Unknown Anisocytosis Not Reportable 09/10/21 Unknown Microcytosis Not Reportable 09/10/21 Unknown Macrocytosis Not Reportable 09/10/21 Unknown Spherocytes Not Reportable 09/10/21 Unknown Pappenheimer Bodies Not Reportable 09/10/21 Unknown Sickle Cells Not Reportable 09/10/21 Unknown Target Cells Rare 09/10/21 Unknown Tear Drop Cells Not Reportable 09/10/21 Unknown Ovalocytes Not Reportable 09/10/21 Unknown Stomatocytes Rare 09/10/21 Unknown Helmet Cells Not Reportable 09/10/21 Unknown [place]og[place] Bodies Not Reportable 09/10/21 Unknown [place] Rings Not Reportable 09/10/21 Unknown [place] Cells Not Reportable 09/10/21 Unknown Bite Cells Not Reportable 09/10/21 Unknown Crenated Cell Not Reportable 09/10/21 Unknown Elliptocytes Not Reportable 09/10/21 Unknown Acanthocytes (Spur) Not Reportable 09/10/21 Unknown Rouleaux Not Reportable 09/10/21 Unknown Hemoglobin C Crystals Not Reportable 09/10/21 Unknown Schistocytes Not Reportable 09/10/21 Unknown Malaria parasites Not Reportable 09/10/21 Unknown Jose Bodies Not Reportable 09/10/21 Unknown Hem Pathologist Commnt No 09/10/21 Unknown PT 16.6 Sec. (12.2-14.9) H 09/09/21 18:53 INR 1.20 (0.87-1.13) H 09/09/21 18:53 D-Dimer 2203.38 ng/mlDDU (0-234) H 09/09/21 18:53 ABG pH 7.100 pH Units (7.350-7.450) L* 09/09/21 21:00 ABG pCO2 20.0 mm Hg 09/09/21 21:00 ABG pO2 60.9 mm Hg (80.0-90.0) L 09/09/21 21:00 ABG HCO3 6.1 mmol/L (20.0-26.0) L 09/09/21 21:00 ABG O2 Saturation 81.1 % (95.0-99.0) L 09/09/21 21:00 ABG O2 Content 4.8 (0.0-44) 09/09/21 21:00 ABG Base Excess -21.5 mmol/L (-2.0-3.0) L 09/09/21 21:00 ABG Hemoglobin 5.0 gm/dl (14.0-18.0) L 09/09/21 21:00 ABG Carboxyhemoglobin 1.3 % (0.0-5.0) 09/09/21 21:00 ABG Methemoglobin 0.5 % (0.0-1.5) 09/09/21 21:00 Oxyhemoglobin 79.7 % (95.0-99.0) L 09/09/21 21:00 FiO2 28 % 09/09/21 21:00 Sodium 138 mmol/L (137-145) 09/14/21 05:16 Potassium 3.4 mmol/L (3.6-5.0) L 09/14/21 05:16 Chloride 100.9 mmol/L (98-107) 09/14/21 05:16 Carbon Dioxide 20 mmol/L (22-30) L 09/14/21 05:16 Anion Gap 21 mmol/L 09/14/21 05:16 BUN 48 mg/dL (9-20) H 09/14/21 05:16 Creatinine 11.2 mg/dL (0.8-1.3) H 09/14/21 05:16 Estimated GFR 6 ml/min 09/14/21 05:16 BUN/Creatinine Ratio 4 % 09/14/21 05:16 Glucose 92 mg/dL (75-100) 09/14/21 05:16 POC Glucose 147 mg/dL (70-105) H 09/10/21 07:35 Lactic Acid 2.10 mmol/L (0.7-2.0) H* 09/09/21 20:49 Calcium 5.1 mg/dL (8.4-10.2) L* 09/14/21 05:16 Phosphorus 3.80 mg/dL (2.5-4.5) 09/14/21 05:16 Magnesium 1.70 mg/dL (1.7-2.3) 09/11/21 05:55 Total Bilirubin 0.30 mg/dL (0.1-1.2) 09/09/21 18:53 AST 17 units/L (5-40) 09/09/21 18:53 ALT 19 units/L (7-56) 09/09/21 18:53 Alkaline Phosphatase 57 units/L (35-129) 09/09/21 18:53 Ammonia 39.0 umol/L (25-60) 09/09/21 19:02 Total Creatine Kinase 1530 units/L (55-170) H 09/10/21 Unknown CK-MB (CK-2) 21.4 ng/mL (0.0-4.0) H 09/09/21 18:53 CK-MB (CK-2) Rel Index 1.2 (0-4) 09/09/21 18:53 Troponin T 0.158 ng/mL (0.00-0.029) H* 09/10/21 Unknown C-Reactive Protein 1.50 mg/dL (0.00-1.30) H 09/09/21 18:53 NT-Pro-B Natriuret Pep 6011 pg/mL (0-900) H 09/09/21 18:53 Total Protein 7.4 g/dL (6.3-8.2) 09/09/21 18:53 Albumin 4.2 g/dL (3.9-5) 09/09/21 18:53 Albumin/Globulin Ratio 1.3 % 09/09/21 18:53 Triglycerides 177 mg/dL (2-149) H 09/09/21 18:53 Cholesterol 170 mg/dL (50-199) 09/09/21 18:53 LDL Cholesterol Direct 107 mg/dL (50-130) 09/09/21 18:53 HDL Cholesterol 28 mg/dL (40-59) L 09/09/21 18:53 Cholesterol/HDL Ratio 6.07 % 09/09/21 18:53 Lipase 1198 units/L (13-60) H 09/09/21 18:53 Prostate Specific Ag 5.18 ng/mL (0.00-4.00) H 09/10/21 Unknown Urine Color Straw (Yellow) 09/09/21 11:35 Urine Turbidity Clear (Clear) 09/09/21 11:35 Urine pH 6.0 (5.0-7.0) 09/09/21 11:35 Ur Specific [place] 1.011 (1.003-1.030) 09/09/21 11:35 Urine Protein 100 mg/dl mg/dL (Negative) 09/09/21 11:35 Urine Glucose (UA) 50 mg/dL (Negative) 09/09/21 11:35 Urine Ketones Neg mg/dL (Negative) 09/09/21 11:35 Urine Blood Mod (Negative) 09/09/21 11:35 Urine Nitrite Neg (Negative) 09/09/21 11:35 Urine Bilirubin Neg (Negative) 09/09/21 11:35 Urine Urobilinogen < 2.0 mg/dL (<2.0) 09/09/21 11:35 Ur Leukocyte Esterase Neg (Negative) 09/09/21 11:35 Urine WBC (Auto) 2.0 /HPF (0.0-6.0) 09/09/21 11:35 Urine RBC (Auto) 11.0 /HPF (0.0-6.0) 09/09/21 11:35 Urine Creatinine 112.8 mg/dL (0.1-20.0) H 09/10/21 11:35 Protein/Creatinin Ratio 1.78 09/10/21 11:35 Urine Total Protein 201 mg/dL (5-11.8) H 09/10/21 11:35 Urine Opiates Screen Presumptive negative 09/10/21 11:35 Urine Methadone Screen Presumptive negative 09/10/21 11:35 Ur Barbiturates Screen Presumptive negative 09/10/21 11:35 Ur Phencyclidine Scrn Presumptive negative 09/10/21 11:35 Ur Amphetamines Screen Presumptive negative 09/10/21 11:35 U Benzodiazepines Scrn Presumptive negative 09/10/21 11:35 Urine Cocaine Screen Presumptive negative 09/10/21 11:35 U Marijuana (THC) Screen Presumptive negative 09/10/21 11:35 Drugs of Abuse Note Disclamer 09/10/21 11:35 Plasma/Serum Alcohol < 0.01 % (0-0.07) 09/10/21 11:35 Hepatitis A IgM Ab Nonreactive (NonReactive) 09/09/21 20:55 Hep Bs Antigen Non-reactive (Negative) 09/09/21 20:55 Hep B Core IgM Ab Non-reactive (NonReactive) 09/09/21 20:55 Hepatitis C Antibody Non-reactive (NonReactive) 09/09/21 20:55 Blood Type O POSITIVE 09/09/21 20:10 Antibody Screen Negative 09/09/21 20:10 Crossmatch See Detail 09/09/21 20:10 León/IV: Voiding Method Indwelling Catheter Active Medications - Current Medications Current Medications: Generic Name Dose Route Start Last Admin Trade Name Freq PRN Reason Stop Dose Admin Acetaminophen 650 mg 09/09/21 20:24 Acetaminophen 325 Mg Tab PO Q4H PRN Pain MILD(1-3)/Fever >100.5/LOCO Amlodipine Besylate 10 mg 09/11/21 12:00 09/14/21 09:41 Amlodipine 10 Mg Tab PO 10 mg QDAY LENY Administration Carvedilol 6.25 mg 09/12/21 22:00 09/14/21 09:41 Carvedilol 6.25 Mg Tab PO 6.25 mg BID LENY Administration Sodium Chloride 1,000 mls @ 75 mls/hr 09/11/21 11:45 09/13/21 05:19 Nacl 0.9% 1000 Ml IV 75 mls/hr DIRECT LENY Administration Sodium Chloride 100 mls @ 999 mls/hr 09/14/21 09:58 Nacl 0.9% IV MARTI PRN Hypotension Labetalol HCl 10 mg 09/11/21 11:09 Labetalol 20 Mg/4 Ml Inj IV Q4HR PRN sbp>160 Metoclopramide HCl 5 mg 09/14/21 09:00 Metoclopramide 10 Mg/2 Ml Inj IV Q8H PRN Nausea And Vomiting Morphine Sulfate 2 mg 09/09/21 20:24 09/10/21 06:00 Morphine 2 Mg/1 Ml Inj IV 2 mg Q4H PRN Administration Pain, Moderate (4-6) Ondansetron HCl 4 mg 09/09/21 20:24 09/11/21 03:43 Ondansetron 4 Mg/2 Ml Inj IV 4 mg Q3H PRN Administration Nausea And Vomiting Pantoprazole Sodium 40 mg 09/11/21 16:30 09/14/21 09:41 Pantoprazole 40 Mg Tab PO 40 mg BIDAC LENY Administration Sodium Chloride 10 ml 09/09/21 22:00 09/14/21 09:48 Sodium Chloride 0.9% 10 Ml Flush Syringe IV 10 ml BID LENY Administration Sodium Chloride 10 ml 09/09/21 20:24 Sodium Chloride 0.9% 10 Ml Flush Syringe IV PRN PRN LINE FLUSH Tamsulosin HCl 0.8 mg 09/11/21 12:00 09/14/21 09:41 Tamsulosin 0.4 Mg Cap PO 0.8 mg QDAY LENY Administration Nutrition/Malnutrition Assess - Dietary Evaluation Nutrition/Malnutrition Findings: Nutrition Notes Start: 09/10/21 15:32 Freq: Status: Active Protocol: Document 09/13/21 17:41 VANESSA (Rec: 09/13/21 17:53 VANESSA [id number]) Nutrition Notes Initial or Follow up Brief Note Current Diagnosis CKD(stage I-IV),Hypertension Other Pertinent Diagnosis ARF/CKD, Anuria, Epistaxis, Anemia, STEMI II, Acidosis, SOB, EtOH Abuse... Current Diet Cardiac -Renal- Diet (since L 09/11), D Suppl (since B 09/14 ). Height 5 ft 8 in Weight 58.967 kg [place] Body Weight (kg) 70.00 BMI 19.8 Weight change and time frame No body weight change reported in 3 days. Weight Status Appropriate Subjective/Other Information RD consult for routine F/U on Dietary Advancement. Pt now on PO diet. No reports available on Pt's PO intake of meals at the time, will assess at F/U. Pt on Room Air, O2 saturation @ 99%, according to Physical Assessment History notes. Percent of energy/protein needs met: Prescribed Cardiac -Renal- Diet provides for energy/ protein needs (2,072 Kcal/77 g ) during LOS; additionally, Dietary Supplements will compensate for possible poor or insufficient PO intake of meals with 850 Kcal and 38 g of protein. #1 Nutrition Diagnosis Increased nutrient needs ( specify in comment below) Diagnosis Progress(for reassessment Continues documentation) Nutrition Intervention Change Diet Order: Continue Cardiac -Renal- Diet. Add Supplement/Snack (indicate name/kcal Start 8 fl oz Nepro w/ /protein ) CARBSTEADY; BID. Provides kCal: 850 Provides Protein (gm) 38 Goal #1 Support, through dietary supplementation, hematological balance processes during LOS. Goal #2 Adjust the dietary intervention to better serve Pt's needs and clinical conditions during LOS. Goal #3 Maintain body weight within +/ -3% of admission body weight during LOS. Follow-Up By: 09/20/21 Additional Comments Continue monitoring food tolerance, %PO intake of meals , and BM.
[2021-09-14] MEDS ORDERED: CALCIUM GLUCONATE 2,000 MG in SODIUM CHLORIDE 0.9% 100 ML IV ONE (18:12)
[2021-09-14] MEDS: CALCITRIOL 0.5 MCG CAP PO SCH (20:58)
[2021-09-15 05:39] LABS: Basophils # (Auto) 0.1 K/mm3 (0.0-0.1); Basophils % (Auto) 0.8 % (0.0-1.8); Eosinophils # (Auto) 0.2 K/mm3 (0.0-0.4); Eosinophils % (Auto) 2.8 % (0.0-4.3); Hematocrit 21.8 % (35.5-45.6); Hemoglobin 7.1 gm/dl (11.8-15.2); Lymphocytes # (Auto) 0.8 K/mm3 (1.2-5.4); Lymphocytes % (Auto) 11.6 % (13.4-35.0); Mean Corpuscular HGB Conc 33 % (32-34); Mean Corpuscular Volume 85 fl (84-94); Monocytes # (Auto) 1.1 K/mm3 (0.0-0.8); Platelet Count 179 K/mm3 (140-440); Red Blood Count 2.55 M/mm3 (3.65-5.03); Red Cell Distribution Width 14.8 % (13.2-15.2)
[2021-09-15 05:54] LABS: Calcium 6.9 mg/dL (8.4-10.2)
[2021-09-15] MEDS ORDERED: SODIUM CHLORIDE 0.9% 500 ML 500 ML IV NR ×2 (07:28→16:00)
[2021-09-15] MEDS ORDERED: hydrALAZINE 20 MG/1 ML INJ IV PRN (07:29)
[2021-09-15] MEDS: PANTOPRAZOLE 40 MG TAB PO SCH ×3 (08:04→15:48)
[2021-09-15] MEDS: TAMSULOSIN 0.4 MG CAP PO SCH (09:09)
[2021-09-15] MEDS: hydrALAZINE 25 MG TAB PO SCH ×2 (09:09→15:49)
[2021-09-15] MEDS: CALCITRIOL 0.5 MCG CAP PO SCH (09:09)
[2021-09-15] MEDS: amLODIPine 10 MG TAB PO SCH (09:10)
[2021-09-15] MEDS: carvediloL 6.25 MG TAB PO SCH ×2 (09:10→22:13)
--- NOTE | 2021-09-15 10:49 | Progress Note ---
Assessment and Plan Severe renal failure secondary to obstructive uropathy Hyperkalemia Metabolic acidosis, now Alkalotic Uremia Acute Anemia Plan: s/p HD yesterday, no HD today. Replace Calcium, ordered PTH and 25 OH Vit D, started calcitriol 24 hours urine creatinine clearance-pending CT AP showed BL hydronephrosis and bladder scan was positive for urinary retention. Urology consulted and placed León and recommended Flomax and to call them for león catheter removal Flomax 0.8 mg po daily Monitor post obstructive diuresis closely, monitor K, Mg and Phos with close monitoring of hypotension Renally dose medications Avoid nephrotoxic agents Strict I&O's daily Obtain daily weights Assess dialysis needs daily Continue to monitor renal function closely Subjective Date of service: 09/15/21 Principal diagnosis: anemia, acute kidney failure Interval history: HD today. Making urine. Objective - Exam Narrative Exam: - Physical exam Narrative exam: General appearance: Present: no acute distress, well-nourished, resting com fortably. alert, comfortable, nad. Appears stated age - EENT Eyes: Present: PERRL ENT: hearing intact, clear oral mucosa - Neck Neck: Present: supple, normal ROM, RT IJ temp dialysis catheter. - Respiratory Respiratory effort: normal Respiratory: bilateral: diminished - Cardiovascular Heart Sounds: Present: S1 & S2. Absent: rub, click - Extremities Extremities: pulses symmetrical, No edema Peripheral Pulses: within normal limits - Abdominal General gastrointestinal: Present: soft, non-tender, non-distended, normal bowel sounds Male genitourinary: Present: normal - Integumentary Integumentary: Present: clear, warm, dry - Musculoskeletal Musculoskeletal: gait normal, strength equal bilaterally - Psychiatric Psychiatric: appropriate mood/affect, intact judgment & insight - Neurologic Neurologic: CNII-XII intact, moves all extremities - Vital Signs Vital signs: Vital Signs - 12hr 09/15/21 09:14 Temperature 98.4 F Pulse Rate 93 H Respiratory 18 Rate Blood Pressure 144/84 O2 Sat by Pulse 94 Oximetry - Lab 09/15/21 05:08 09/15/21 05:08 Most recent lab results ABG pH 7.100 pH Units (7.350-7.450) L* 09/09/21 21:00 ABG pCO2 20.0 mm Hg 09/09/21 21:00 ABG pO2 60.9 mm Hg (80.0-90.0) L 09/09/21 21:00 ABG HCO3 6.1 mmol/L (20.0-26.0) L 09/09/21 21:00 ABG O2 Saturation 81.1 % (95.0-99.0) L 09/09/21 21:00 Calcium 6.9 mg/dL (8.4-10.2) L D 09/15/21 05:08 Phosphorus 2.70 mg/dL (2.5-4.5) D 09/15/21 05:08 Magnesium 1.70 mg/dL (1.7-2.3) 09/11/21 05:55 Urine Creatinine 112.8 mg/dL (0.1-20.0) H 09/10/21 11:35 Urine Total Protein 201 mg/dL (5-11.8) H 09/10/21 11:35 Medications & Allergies - Medications Allergies/Adverse Reactions: Allergies No Known Allergies Allergy (Unverified 01/17/17 01:04) Home Medications: Home Medications Medication Instructions Recorded Confirmed Last Taken Type Acetaminophen/Codeine [Tylenol #3] 1 tab PO Q6H PRN #7 tab 01/17/17 09/14/21 Unknown Rx Ibuprofen [Motrin] 600 mg PO Q8H PRN #15 tablet 01/17/17 09/14/21 Unknown Rx methOCARBAMOL [Robaxin TAB] 500 mg PO Q6H PRN #15 tablet 01/17/17 09/14/21 Unknown Rx Active Medications: Generic Name Dose Route Start Last Admin Trade Name Freq PRN Reason Stop Dose Admin Acetaminophen 650 mg 09/09/21 20:24 Acetaminophen 325 Mg Tab PO Q4H PRN Pain MILD(1-3)/Fever >100.5/LOCO Amlodipine Besylate 10 mg 09/11/21 12:00 09/15/21 09:10 Amlodipine 10 Mg Tab PO 10 mg QDAY LENY Administration Calcitriol 0.5 mcg 09/14/21 19:00 09/15/21 09:09 Calcitriol 0.5 Mcg Cap PO 0.5 mcg QDAY LENY Administration Carvedilol 6.25 mg 09/12/21 22:00 09/15/21 09:10 Carvedilol 6.25 Mg Tab PO 6.25 mg BID LENY Administration Hydralazine HCl 10 mg 09/15/21 07:29 Hydralazine 20 Mg/1 Ml Inj IV Q4H PRN Hypertension Hydralazine HCl 50 mg 09/15/21 08:00 09/15/21 09:09 Hydralazine 25 Mg Tab PO 50 mg Q8H LENY Administration Sodium Chloride 1,000 mls @ 75 mls/hr 09/11/21 11:45 09/13/21 05:19 Nacl 0.9% 1000 Ml IV 75 mls/hr DIRECT LENY Administration Sodium Chloride 100 mls @ 999 mls/hr 09/14/21 09:58 Nacl 0.9% IV MARTI PRN Hypotension Sodium Chloride 500 mls @ 0 mls/hr 09/15/21 07:28 Nacl 0.9% 500 Ml IV 09/15/21 12:30 ONCE NR As Directed Labetalol HCl 10 mg 09/11/21 11:09 Labetalol 20 Mg/4 Ml Inj IV Q4HR PRN sbp>160 Metoclopramide HCl 5 mg 09/14/21 09:00 Metoclopramide 10 Mg/2 Ml Inj IV Q8H PRN Nausea And Vomiting Morphine Sulfate 2 mg 09/09/21 20:24 09/10/21 06:00 Morphine 2 Mg/1 Ml Inj IV 2 mg Q4H PRN Administration Pain, Moderate (4-6) Ondansetron HCl 4 mg 09/09/21 20:24 09/11/21 03:43 Ondansetron 4 Mg/2 Ml Inj IV 4 mg Q3H PRN Administration Nausea And Vomiting Pantoprazole Sodium 40 mg 09/11/21 16:30 09/15/21 09:09 Pantoprazole 40 Mg Tab PO 40 mg BIDAC LENY Administration Sodium Chloride 10 ml 09/09/21 22:00 09/15/21 09:10 Sodium Chloride 0.9% 10 Ml Flush Syringe IV 10 ml BID LENY Administration Sodium Chloride 10 ml 09/09/21 20:24 Sodium Chloride 0.9% 10 Ml Flush Syringe IV PRN PRN LINE FLUSH Tamsulosin HCl 0.8 mg 09/11/21 12:00 09/15/21 09:09 Tamsulosin 0.4 Mg Cap PO 0.8 mg QDAY LENY Administration
--- NOTE | 2021-09-15 11:50 | Progress Note ---
Assessment and Plan Assessment and plan: 61 years old male with past medical history of chronic kidney disease was brought to the hospital because of progressive shortness of breath as stated with vomiting and bleeding from nose for 1 day. Patient is a very poor historian. In the emergency room patient is found to have hemoglobin of 4.8 and hematocrit 14.9 also patient is found to have potassium of 7.1, bicarb 4, anion gap 54, BUN to 38 and creatinine 48.4, lactic acid 2.80. ABG shows pH 7.100, PCO2 20+0, PO2 60.9, bicarb 6.1 Subsequently Case was discussed with on-call GI doctor as well as nephrology who will do the hemodialysis immediately. We also put the patient on IMCU putting on bicarb drip, Protonix drip giving blood transfusion and consult critical care evaluation Hospital Course: 09/10: Improved on bedside encounter. Urology placed león catheter. Plan for nephrology to complete HD today. Hgb improved to 8.3, suspect anemia is purely from epistaxis, unclear if there was truly was a GI source. Will continue to monitor for other source of bleed. GI consulted, will follow recommendations. 09/11: hemoglobin stable. patient on encounter states he had recurrent epistaxis bleed leading up to hospitalization. Hgb stable this AM. Renal indices improved on bmp. Urine output 1000 cc yesterday. Troponin downtrending. D/w Dr. Juan A Martin, will d/c protonix IV, start on protonix 40 mg po bid. Transfer to floor bed. 09/12: Doing well on encounter today. on room air saturating 98%. Renal indices improving. León output approx: 2500 cc yday. [place] tingued urine noted, clearing up. hemoglobin 8.1, VSS. No plan for HD today per nephrology. We will continue to follow along for hemodialysis plan moving forward and nephrology final impression on renal prognosis. Anticipate d/c in next 24-48 hrs depending on this. Patient will likely need to be discharged with León catheter and instructions to follow-up with urology as an outpatient. 09/13: Patient remains clinically stable. Renal function appears to slightly worsened today. Nephrology noted the slight worsening. Will reevaluate in a.m. Patient undergoing 24-hour urine collection. From respiratory standpoint patient is stable acute respiratory failure secondary to fluid overload has resolved. Plan discussed with the patient in detail he verbalized understanding. 15 minutes counseling provided to the patient about continued cessation of EtOH use on lifestyle preventive care measures. We will monitor potassium level and slight of renal failure. 09/14: Patient seen and examined this morning hypokalemia persist also hy pocalcemia we will replace both potassium and calcium. Patient advised by mobility developer that he will be having dialysis today as creatinine is gradually creeping back up to 11.2 today. León remains in place with good urine output. Patient understands he will have to go home with a León and follow-up with urologist. Based on discussion with nephrology will determine if her permacath needs to be placed prior to discharge. I have also updated the and answered all questions. At this time awaiting renal recovery if possible. We will continue to monitor H&H 09/15: Patient seen and examined, no new complaints, review of labs shows improvement of renal function following HD yesterday, however HGB still decreasing. Will order a unit of PRBC and Hematology consultation. Further management and discharge plan depends on renal recovery and Nephrology input. Patient updated. Assessment and Plan: #Acute kidney injury due to post renal obstruction (improving) #Metabolic Acidosis (resolving) #Lactic Acidosis 2.8-> 2.1 (resolved) #Acute heart failure with preserved ejection fraction (ef 45-50%) #Hyperkalemia (resolved) #Hypokalemia #Uremia (resolved) #Urinary retention (resolving) #Hypocalcemia #Prostateamegaly - BUN to 38 and creatinine 48.4 -ABG pH 7.100, PCO2 20.0, PO2 60.9, bicarb 6.1 - K: 7.1, subsequently 3.2 - LA: 2.8->2.1 -nephrology consultation - urology called for león placement - noted prostatamegaly on ctap, ordered psa elevated to 5.18 - monitor electrolytes on serial renal profile - strict I/O, close UOP monitoring - avoid nephrotoxins, renally adjust medications - bicarb gtt to be continued per nephrology direction #Acute hypoxic respiratory failure (resolved) - O2 sat as low as 56% on admission, currently on room air satting 98%, not in respiratory distress - shortness of breath likely driven by severe anemia - cxr: no acute findings. - pulmonology following #Acute metabolic encephalopathy (resolved) - likely due to uremia - improving #hypertension - elevated BP - coreg dose increased, hold lisney-i due to renal fx. #Blood loss anemia s/p 4 units prbc (stable) likely secondary to renal failure #Epistaxis (appears resolved) - hx of recurrent epistaxis per son, patient had increased uncontrolled bleeding for 1 day. No prior hx of GI bleed or reported blood in stool. Uremia could have precipitated bleed. - Hgb: 4.8 on admission, s/p 4 units prbc, now 8's - transfuse prn Hgb< 7. - GI consulted due to concern for GI bleed on admission - protonix gtt, start protonix 40 mg po bid - unclear if this is truly GI source, will defer to gastroenterology, D/w Dr. Juan A Martin #Type II myocardial infarction (resolved) - supply demand from anemia in the setting TIFFANIE - serial troponins ordered, downtrending. -cardiology following, no intervention at this time. #EtOH use disorder person patient stopped a few weeks ago. #Sepsis ruled out, doubt infectious etiology. History Interval history: Patient seen and examined resting comfortably Hospitalist Physical - Physical exam Narrative exam: General appearance: Present: no acute distress, well-nourished, resting comfortably. alert, comfortable, nad. Appears stated age - EENT Eyes: Present: PERRL ENT: hearing intact, clear oral mucosa - Neck Neck: Present: supple, normal ROM, RT IJ temp dialysis catheter. - Respiratory Respiratory effort: normal Respiratory: bilateral: diminished - Cardiovascular Heart Sounds: Present: S1 & S2. Absent: rub, click - Extremities Extremities: pulses symmetrical, No edema Peripheral Pulses: within normal limits - Abdominal General gastrointestinal: Present: soft, non-tender, non-distended, normal bowel sounds Male genitourinary: Present: normal - Integumentary Integumentary: Present: clear, warm, dry - Musculoskeletal Musculoskeletal: gait normal, strength equal bilaterally - Psychiatric Psychiatric: appropriate mood/affect, intact judgment & insight - Neurologic Neurologic: CNII-XII intact, moves all extremities : león catheter in place, pink urine in león bag. - Constitutional Vitals: Temp Pulse Resp BP Pulse Ox 98.4 F 93 H 18 144/84 94 09/15/21 09:14 09/15/21 09:14 09/15/21 09:14 09/15/21 09:14 09/15/21 09:14 General appearance: Present: no acute distress HEART Score - HEART Score Troponin: Troponin T 0.158 ng/mL (0.00-0.029) H* 09/10/21 Unknown Results - Labs CBC & Chem 7: 09/15/21 05:08 09/15/21 05:08 Labs: Laboratory Last Values WBC 7.2 K/mm3 (4.5-11.0) 09/15/21 05:08 RBC 2.55 M/mm3 (3.65-5.03) L 09/15/21 05:08 Hgb 7.1 gm/dl (11.8-15.2) L 09/15/21 05:08 Hct 21.8 % (35.5-45.6) L 09/15/21 05:08 MCV 85 fl (84-94) 09/15/21 05:08 MCH 28 pg (28-32) 09/15/21 05:08 MCHC 33 % (32-34) 09/15/21 05:08 RDW 14.8 % (13.2-15.2) 09/15/21 05:08 Plt Count 179 K/mm3 (140-440) 09/15/21 05:08 Lymph % (Auto) 11.6 % (13.4-35.0) L 09/15/21 05:08 [place] % (Auto) 15.0 % (0.0-7.3) H 09/15/21 05:08 Eos % (Auto) 2.8 % (0.0-4.3) 09/15/21 05:08 Baso % (Auto) 0.8 % (0.0-1.8) 09/15/21 05:08 Lymph # (Auto) 0.8 K/mm3 (1.2-5.4) L 09/15/21 05:08 [place] # (Auto) 1.1 K/mm3 (0.0-0.8) H 09/15/21 05:08 Eos # (Auto) 0.2 K/mm3 (0.0-0.4) 09/15/21 05:08 Baso # (Auto) 0.1 K/mm3 (0.0-0.1) 09/15/21 05:08 Add Manual Diff Complete 09/10/21 Unknown Total Counted 100 09/10/21 Unknown Seg Neutrophils % 69.8 % (40.0-70.0) 09/15/21 05:08 Seg Neuts % (Manual) 92.0 % (40.0-70.0) H 09/10/21 Unknown Band Neutrophils % 0 % 09/10/21 Unknown Lymphocytes % (Manual) 3.0 % (13.4-35.0) L 09/10/21 Unknown Reactive Lymphs % (Man) 0 % 09/10/21 Unknown Monocytes % (Manual) 5.0 % (0.0-7.3) 09/10/21 Unknown Eosinophils % (Manual) 0 % (0.0-4.3) 09/10/21 Unknown Basophils % (Manual) 0 % (0.0-1.8) 09/10/21 Unknown Metamyelocytes % 0 % 09/10/21 Unknown Myelocytes % 0 % 09/10/21 Unknown Promyelocytes % 0 % 09/10/21 Unknown Blast Cells % 0 % 09/10/21 Unknown Nucleated RBC % 1.0 % (0.0-0.9) H 09/10/21 Unknown Seg Neutrophils # 5.1 K/mm3 (1.8-7.7) 09/15/21 05:08 Seg Neutrophils # Man 7.3 K/mm3 (1.8-7.7) 09/10/21 Unknown Band Neutrophils # 0.0 K/mm3 09/10/21 Unknown Lymphocytes # (Manual) 0.2 K/mm3 (1.2-5.4) L 09/10/21 Unknown Abs React Lymphs (Man) 0.0 K/mm3 09/10/21 Unknown Monocytes # (Manual) 0.4 K/mm3 (0.0-0.8) 09/10/21 Unknown Eosinophils # (Manual) 0.0 K/mm3 (0.0-0.4) 09/10/21 Unknown Basophils # (Manual) 0.0 K/mm3 (0.0-0.1) 09/10/21 Unknown Metamyelocytes # 0.0 K/mm3 09/10/21 Unknown Myelocytes # 0.0 K/mm3 09/10/21 Unknown Promyelocytes # 0.0 K/mm3 09/10/21 Unknown Blast Cells # 0.0 K/mm3 09/10/21 Unknown WBC Morphology Not Reportable 09/10/21 Unknown Hypersegmented Neuts Not Reportable 09/10/21 Unknown Hyposegmented Neuts 1+ 09/10/21 Unknown Hypogranular Neuts Not Reportable 09/10/21 Unknown Smudge Cells Not Reportable 09/10/21 Unknown Toxic Granulation Not Reportable 09/10/21 Unknown Toxic Vacuolation Not Reportable 09/10/21 Unknown Dohle Bodies Not Reportable 09/10/21 Unknown Pelger-Huet Anomaly Not Reportable 09/10/21 Unknown Francisco Javier Rods Not Reportable 09/10/21 Unknown Platelet Estimate Consistent w auto 09/10/21 Unknown Clumped Platelets Not Reportable 09/10/21 Unknown Plt Clumps, EDTA Not Reportable 09/10/21 Unknown Large Platelets Not Reportable 09/10/21 Unknown Giant Platelets Not Reportable 09/10/21 Unknown Platelet Satelliting Not Reportable 09/10/21 Unknown Plt Morphology Comment Not Reportable 09/10/21 Unknown RBC Morphology Not Reportable 09/10/21 Unknown Dimorphic RBCs Not Reportable 09/10/21 Unknown Polychromasia Not Reportable 09/10/21 Unknown Hypochromasia 1+ 09/10/21 Unknown Poikilocytosis Few 09/10/21 Unknown Anisocytosis Not Reportable 09/10/21 Unknown Microcytosis Not Reportable 09/10/21 Unknown Macrocytosis Not Reportable 09/10/21 Unknown Spherocytes Not Reportable 09/10/21 Unknown Pappenheimer Bodies Not Reportable 09/10/21 Unknown Sickle Cells Not Reportable 09/10/21 Unknown Target Cells Rare 09/10/21 Unknown Tear Drop Cells Not Reportable 09/10/21 Unknown Ovalocytes Not Reportable 09/10/21 Unknown Stomatocytes Rare 09/10/21 Unknown Helmet Cells Not Reportable 09/10/21 Unknown [place] Bodies Not Reportable 09/10/21 Unknown [place] Rings Not Reportable 09/10/21 Unknown [place] Cells Not Reportable 09/10/21 Unknown Bite Cells Not Reportable 09/10/21 Unknown Crenated Cell Not Reportable 09/10/21 Unknown Elliptocytes Not Reportable 09/10/21 Unknown Acanthocytes (Spur) Not Reportable 09/10/21 Unknown Rouleaux Not Reportable 09/10/21 Unknown Hemoglobin C Crystals Not Reportable 09/10/21 Unknown Schistocytes Not Reportable 09/10/21 Unknown Malaria parasites Not Reportable 09/10/21 Unknown Jose Bodies Not Reportable 09/10/21 Unknown Hem Pathologist Commnt No 09/10/21 Unknown PT 16.6 Sec. (12.2-14.9) H 09/09/21 18:53 INR 1.20 (0.87-1.13) H 09/09/21 18:53 D-Dimer 2203.38 ng/mlDDU (0-234) H 09/09/21 18:53 ABG pH 7.100 pH Units (7.350-7.450) L* 09/09/21 21:00 ABG pCO2 20.0 mm Hg 09/09/21 21:00 ABG pO2 60.9 mm Hg (80.0-90.0) L 09/09/21 21:00 ABG HCO3 6.1 mmol/L (20.0-26.0) L 09/09/21 21:00 ABG O2 Saturation 81.1 % (95.0-99.0) L 09/09/21 21:00 ABG O2 Content 4.8 (0.0-44) 09/09/21 21:00 ABG Base Excess -21.5 mmol/L (-2.0-3.0) L 09/09/21 21:00 ABG Hemoglobin 5.0 gm/dl (14.0-18.0) L 09/09/21 21:00 ABG Carboxyhemoglobin 1.3 % (0.0-5.0) 09/09/21 21:00 ABG Methemoglobin 0.5 % (0.0-1.5) 09/09/21 21:00 Oxyhemoglobin 79.7 % (95.0-99.0) L 09/09/21 21:00 FiO2 28 % 09/09/21 21:00 Sodium 142 mmol/L (137-145) 09/15/21 05:08 Potassium 3.6 mmol/L (3.6-5.0) 09/15/21 05:08 Chloride 103.0 mmol/L (98-107) 09/15/21 05:08 Carbon Dioxide 28 mmol/L (22-30) D 09/15/21 05:08 Anion Gap 15 mmol/L 09/15/21 05:08 BUN 28 mg/dL (9-20) H 09/15/21 05:08 Creatinine 7.1 mg/dL (0.8-1.3) H 09/15/21 05:08 Estimated GFR 10 ml/min 09/15/21 05:08 BUN/Creatinine Ratio 4 % 09/15/21 05:08 Glucose 100 mg/dL (75-100) 09/15/21 05:08 POC Glucose 147 mg/dL (70-105) H 09/10/21 07:35 Lactic Acid 2.10 mmol/L (0.7-2.0) H* 09/09/21 20:49 Calcium 6.9 mg/dL (8.4-10.2) L D 09/15/21 05:08 Phosphorus 2.70 mg/dL (2.5-4.5) D 09/15/21 05:08 Magnesium 1.70 mg/dL (1.7-2.3) 09/11/21 05:55 Total Bilirubin 0.30 mg/dL (0.1-1.2) 09/09/21 18:53 AST 17 units/L (5-40) 09/09/21 18:53 ALT 19 units/L (7-56) 09/09/21 18:53 Alkaline Phosphatase 57 units/L (35-129) 09/09/21 18:53 Ammonia 39.0 umol/L (25-60) 09/09/21 19:02 Total Creatine Kinase 1530 units/L (55-170) H 09/10/21 Unknown CK-MB (CK-2) 21.4 ng/mL (0.0-4.0) H 09/09/21 18:53 CK-MB (CK-2) Rel Index 1.2 (0-4) 09/09/21 18:53 Troponin T 0.158 ng/mL (0.00-0.029) H* 09/10/21 Unknown C-Reactive Protein 1.50 mg/dL (0.00-1.30) H 09/09/21 18:53 NT-Pro-B Natriuret Pep 6011 pg/mL (0-900) H 09/09/21 18:53 Total Protein 7.4 g/dL (6.3-8.2) 09/09/21 18:53 Albumin 4.2 g/dL (3.9-5) 09/09/21 18:53 Albumin/Globulin Ratio 1.3 % 09/09/21 18:53 Triglycerides 177 mg/dL (2-149) H 09/09/21 18:53 Cholesterol 170 mg/dL (50-199) 09/09/21 18:53 LDL Cholesterol Direct 107 mg/dL (50-130) 09/09/21 18:53 HDL Cholesterol 28 mg/dL (40-59) L 09/09/21 18:53 Cholesterol/HDL Ratio 6.07 % 09/09/21 18:53 Lipase 1198 units/L (13-60) H 09/09/21 18:53 Prostate Specific Ag 5.18 ng/mL (0.00-4.00) H 09/10/21 Unknown PTH Intact 259.3 pg/mL (15-65) H 09/14/21 23:27 Urine Color Straw (Yellow) 09/09/21 11:35 Urine Turbidity Clear (Clear) 09/09/21 11:35 Urine pH 6.0 (5.0-7.0) 09/09/21 11:35 Ur Specific [place] 1.011 (1.003-1.030) 09/09/21 11:35 Urine Protein 100 mg/dl mg/dL (Negative) 09/09/21 11:35 Urine Glucose (UA) 50 mg/dL (Negative) 09/09/21 11:35 Urine Ketones Neg mg/dL (Negative) 09/09/21 11:35 Urine Blood Mod (Negative) 09/09/21 11:35 Urine Nitrite Neg (Negative) 09/09/21 11:35 Urine Bilirubin Neg (Negative) 09/09/21 11:35 Urine Urobilinogen < 2.0 mg/dL (<2.0) 09/09/21 11:35 Ur Leukocyte Esterase Neg (Negative) 09/09/21 11:35 Urine WBC (Auto) 2.0 /HPF (0.0-6.0) 09/09/21 11:35 Urine RBC (Auto) 11.0 /HPF (0.0-6.0) 09/09/21 11:35 Urine Creatinine 112.8 mg/dL (0.1-20.0) H 09/10/21 11:35 Protein/Creatinin Ratio 1.78 09/10/21 11:35 Urine Total Protein 201 mg/dL (5-11.8) H 09/10/21 11:35 Urine Opiates Screen Presumptive negative 09/10/21 11:35 Urine Methadone Screen Presumptive negative 09/10/21 11:35 Ur Barbiturates Screen Presumptive negative 09/10/21 11:35 Ur Phencyclidine Scrn Presumptive negative 09/10/21 11:35 Ur Amphetamines Screen Presumptive negative 09/10/21 11:35 U Benzodiazepines Scrn Presumptive negative 09/10/21 11:35 Urine Cocaine Screen Presumptive negative 09/10/21 11:35 U Marijuana (THC) Screen Presumptive negative 09/10/21 11:35 Drugs of Abuse Note Disclamer 09/10/21 11:35 Plasma/Serum Alcohol < 0.01 % (0-0.07) 09/10/21 11:35 Hepatitis A IgM Ab Nonreactive (NonReactive) 09/09/21 20:55 Hep Bs Antigen Non-reactive (Negative) 09/09/21 20:55 Hep B Core IgM Ab Non-reactive (NonReactive) 09/09/21 20:55 Hepatitis C Antibody Non-reactive (NonReactive) 09/09/21 20:55 Blood Type O POSITIVE 09/15/21 07:50 Antibody Screen Negative 09/15/21 07:50 Crossmatch See Detail 09/15/21 07:50 León/IV: Voiding Method Indwelling Catheter Active Medications - Current Medications Current Medications: Generic Name Dose Route Start Last Admin Trade Name Jesseeq PRN Reason Stop Dose Admin Acetaminophen 650 mg 09/09/21 20:24 Acetaminophen 325 Mg Tab PO Q4H PRN Pain MILD(1-3)/Fever >100.5/LOCO Amlodipine Besylate 10 mg 09/11/21 12:00 09/15/21 09:10 Amlodipine 10 Mg Tab PO 10 mg QDAY LENY Administration Calcitriol 0.5 mcg 09/14/21 19:00 09/15/21 09:09 Calcitriol 0.5 Mcg Cap PO 0.5 mcg QDAY LENY Administration Carvedilol 6.25 mg 09/12/21 22:00 09/15/21 09:10 Carvedilol 6.25 Mg Tab PO 6.25 mg BID LENY Administration Hydralazine HCl 10 mg 09/15/21 07:29 Hydralazine 20 Mg/1 Ml Inj IV Q4H PRN Hypertension Hydralazine HCl 50 mg 09/15/21 08:00 09/15/21 09:09 Hydralazine 25 Mg Tab PO 50 mg Q8H LENY Administration Sodium Chloride 1,000 mls @ 75 mls/hr 09/11/21 11:45 09/13/21 05:19 Nacl 0.9% 1000 Ml IV 75 mls/hr DIRECT LENY Administration Sodium Chloride 100 mls @ 999 mls/hr 09/14/21 09:58 Nacl 0.9% IV MARTI PRN Hypotension Sodium Chloride 500 mls @ 0 mls/hr 09/15/21 07:28 Nacl 0.9% 500 Ml IV 09/15/21 12:30 ONCE NR As Directed Labetalol HCl 10 mg 09/11/21 11:09 Labetalol 20 Mg/4 Ml Inj IV Q4HR PRN sbp>160 Metoclopramide HCl 5 mg 09/14/21 09:00 Metoclopramide 10 Mg/2 Ml Inj IV Q8H PRN Nausea And Vomiting Morphine Sulfate 2 mg 09/09/21 20:24 09/10/21 06:00 Morphine 2 Mg/1 Ml Inj IV 2 mg Q4H PRN Administration Pain, Moderate (4-6) Ondansetron HCl 4 mg 09/09/21 20:24 09/11/21 03:43 Ondansetron 4 Mg/2 Ml Inj IV 4 mg Q3H PRN Administration Nausea And Vomiting Pantoprazole Sodium 40 mg 09/11/21 16:30 09/15/21 09:09 Pantoprazole 40 Mg Tab PO 40 mg BIDAC LENY Administration Sodium Chloride 10 ml 09/09/21 22:00 09/15/21 09:10 Sodium Chloride 0.9% 10 Ml Flush Syringe IV 10 ml BID LENY Administration Sodium Chloride 10 ml 09/09/21 20:24 Sodium Chloride 0.9% 10 Ml Flush Syringe IV PRN PRN LINE FLUSH Tamsulosin HCl 0.8 mg 09/11/21 12:00 09/15/21 09:09 Tamsulosin 0.4 Mg Cap PO 0.8 mg QDAY LENY Administration Nutrition/Malnutrition Assess - Dietary Evaluation Nutrition/Malnutrition Findings: Nutrition Notes Start: 05/03/22 15:32 Freq: Status: Active Protocol: Document 09/13/21 17:41 VANESSA (Rec: 09/13/21 17:53 VANESSA [id number]) Nutrition Notes Initial or Follow up Brief Note Current Diagnosis CKD(stage I-IV),Hypertension Other Pertinent Diagnosis ARF/CKD, Anuria, Epistaxis, Anemia, STEMI II, Acidosis, SOB, EtOH Abuse... Current Diet Cardiac -Renal- Diet (since L 09/11), D Suppl (since B 09/14 ). Height 5 ft 8 in Weight 58.967 kg [place] Body Weight (kg) 70.00 BMI 19.8 Weight change and time frame No body weight change reported in 3 days. Weight Status Appropriate Subjective/Other Information RD consult for routine F/U on Dietary Advancement. Pt now on PO diet. No reports available on Pt's PO intake of meals at the time, will assess at F/U. Pt on Room Air, O2 saturation @ 99%, according to Physical Assessment History notes. Percent of energy/protein needs met: Prescribed Cardiac -Renal- Diet provides for energy/ protein needs (2,072 Kcal/77 g ) during LOS; additionally, Dietary Supplements will compensate for possible poor or insufficient PO intake of meals with 850 Kcal and 38 g of protein. #1 Nutrition Diagnosis Increased nutrient needs ( specify in comment below) Diagnosis Progress(for reassessment Continues documentation) Nutrition Intervention Change Diet Order: Continue Cardiac -Renal- Diet. Add Supplement/Snack (indicate name/kcal Start 8 fl oz Nepro w/ /protein ) CARBSTEADY; BID. Provides kCal: 850 Provides Protein (gm) 38 Goal #1 Support, through dietary supplementation, hematological balance processes during LOS. Goal #2 Adjust the dietary intervention to better serve Pt's needs and clinical conditions during LOS. Goal #3 Maintain body weight within +/ -3% of admission body weight during LOS. Follow-Up By: 09/20/21 Additional Comments Continue monitoring food tolerance, %PO intake of meals , and BM.
[2021-09-15] MEDS ORDERED: CALCIUM GLUCONATE 2,000 MG in SODIUM CHLORIDE 0.9% 100 ML IV ONE (15:32)
[2021-09-16] MEDS: hydrALAZINE 25 MG TAB PO SCH ×4 (01:08→23:00)
[2021-09-16 05:49] LABS: Hematocrit 24.2 % (35.5-45.6); Hemoglobin 7.8 gm/dl (11.8-15.2); Mean Corpuscular HGB Conc 32 % (32-34); Mean Corpuscular Volume 85 fl (84-94); Platelet Count 190 K/mm3 (140-440); Red Blood Count 2.86 M/mm3 (3.65-5.03); Red Cell Distribution Width 15.7 % (13.2-15.2)
[2021-09-16 07:38] LABS: Basophils % (Manual) 0 % (0.0-1.8); Total Cells Counted 100
[2021-09-16 07:40] LABS: Platelet Estimate Consistent w Auto; Spherocytes 1+; Target Cells 1+
[2021-09-16] MEDS: TAMSULOSIN 0.4 MG CAP PO SCH (09:16)
[2021-09-16] MEDS: amLODIPine 10 MG TAB PO SCH (09:16)
[2021-09-16] MEDS: carvediloL 6.25 MG TAB PO SCH ×2 (09:16→21:36)
[2021-09-16] MEDS: CALCITRIOL 0.5 MCG CAP PO SCH (09:16)
[2021-09-16] MEDS: PANTOPRAZOLE 40 MG TAB PO SCH ×2 (09:16→15:38)
--- NOTE | 2021-09-16 10:44 | Progress Note ---
Assessment and Plan Assessment Severe renal failure secondary to obstructive uropathy Hyperkalemia Metabolic acidosis, now Alkalotic Uremia Acute Anemia Hypocalcemia/Hyperparathyroidsm Plan: Renal labs reviewed. Serum creatinine is 8.6 today, yesterday's serum creatinine was 7.1, non-oliguric, UOP 3400 ml Hemodialysis today for UF mainly, No UF. Patient was initiated on hemodialysis on 09/10/21 due to severe renal failure coupled with severe Hyperkalemia and Acidosis 24 hour urine collection for creatinine clearance not done, will reorder today CT AP showed BL hydronephrosis and bladder scan was positive for urinary retention. Urology consulted and placed león and recommended Flomax and to call them for león catheter removal On Flomax 0.8 mg po daily Monitor post obstructive diuresis closely, monitor K, Mg and Phos with close monitoring for hypotension On NS@ 75 ml/hr Hypocalcemia and Hyperparathyroidsm- on Calctriol Renally dose medications Avoid nephrotoxic agents Strict I&O's daily Obtain daily weights Assess dialysis needs daily Continue to monitor renal function closely Will consult case management for outpatient HD arrangement in case patient needs outpatient HD or if not able to be placed may require receiving outpatient HD via E.R Patient will need perm-catheter placement prior to discharge if outpatient HD is determined Plan of care reviewed by Dr. Gregory Subjective Date of service: 09/16/21 Principal diagnosis: anemia, acute kidney failure Interval history: Patient in dialysis Objective - Vital Signs Vital signs: Vital Signs - 12hr 09/16/21 09/16/21 09/16/21 01:08 01:31 04:39 Temperature 99.8 F H 98.0 F Pulse Rate 92 H 97 H 91 H Respiratory 18 16 Rate Blood Pressure 138/81 144/90 Blood Pressure 135/70 [Right] O2 Sat by Pulse 97 98 Oximetry 09/16/21 09/16/21 09:16 09:19 Temperature Pulse Rate Respiratory Rate Blood Pressure 154/90 154/90 Blood Pressure [Right] O2 Sat by Pulse Oximetry - Lab 09/16/21 05:23 09/16/21 05:23 Most recent lab results ABG pH 7.100 pH Units (7.350-7.450) L* 09/09/21 21:00 ABG pCO2 20.0 mm Hg 09/09/21 21:00 ABG pO2 60.9 mm Hg (80.0-90.0) L 09/09/21 21:00 ABG HCO3 6.1 mmol/L (20.0-26.0) L 09/09/21 21:00 ABG O2 Saturation 81.1 % (95.0-99.0) L 09/09/21 21:00 Calcium 7.0 mg/dL (8.4-10.2) L 09/16/21 05:23 Phosphorus 2.70 mg/dL (2.5-4.5) 09/16/21 05:23 Magnesium 1.70 mg/dL (1.7-2.3) 09/11/21 05:55 Urine Creatinine 112.8 mg/dL (0.1-20.0) H 09/10/21 11:35 Urine Total Protein 201 mg/dL (5-11.8) H 09/10/21 11:35 Medications & Allergies - Medications Allergies/Adverse Reactions: Allergies No Known Allergies Allergy (Unverified 01/17/17 01:04) Home Medications: Home Medications Medication Instructions Recorded Confirmed Last Taken Type Acetaminophen/Codeine [Tylenol #3] 1 tab PO Q6H PRN #7 tab 01/17/17 09/14/21 Unknown Rx Ibuprofen [Motrin] 600 mg PO Q8H PRN #15 tablet 01/17/17 09/14/21 Unknown Rx methOCARBAMOL [Robaxin TAB] 500 mg PO Q6H PRN #15 tablet 01/17/17 09/14/21 Unknown Rx Active Medications: Generic Name Dose Route Start Last Admin Trade Name Freq PRN Reason Stop Dose Admin Acetaminophen 650 mg 09/09/21 20:24 Acetaminophen 325 Mg Tab PO Q4H PRN Pain MILD(1-3)/Fever >100.5/LOCO Amlodipine Besylate 10 mg 09/11/21 12:00 09/16/21 09:16 Amlodipine 10 Mg Tab PO 10 mg QDAY LENY Administration Calcitriol 0.5 mcg 09/14/21 19:00 09/16/21 09:16 Calcitriol 0.5 Mcg Cap PO 0.5 mcg QDAY LENY Administration Carvedilol 6.25 mg 09/12/21 22:00 09/16/21 09:16 Carvedilol 6.25 Mg Tab PO 6.25 mg BID LENY Administration Hydralazine HCl 10 mg 09/15/21 07:29 Hydralazine 20 Mg/1 Ml Inj IV Q4H PRN Hypertension Hydralazine HCl 50 mg 09/15/21 08:00 09/16/21 09:19 Hydralazine 25 Mg Tab PO 50 mg Q8H LENY Administration Sodium Chloride 1,000 mls @ 75 mls/hr 09/11/21 11:45 09/13/21 05:19 Nacl 0.9% 1000 Ml IV 75 mls/hr DIRECT LENY Administration Sodium Chloride 100 mls @ 999 mls/hr 09/14/21 09:58 Nacl 0.9% IV MARTI PRN Hypotension Labetalol HCl 10 mg 09/11/21 11:09 Labetalol 20 Mg/4 Ml Inj IV Q4HR PRN sbp>160 Metoclopramide HCl 5 mg 09/14/21 09:00 Metoclopramide 10 Mg/2 Ml Inj IV Q8H PRN Nausea And Vomiting Morphine Sulfate 2 mg 09/09/21 20:24 09/10/21 06:00 Morphine 2 Mg/1 Ml Inj IV 2 mg Q4H PRN Administration Pain, Moderate (4-6) Ondansetron HCl 4 mg 09/09/21 20:24 09/11/21 03:43 Ondansetron 4 Mg/2 Ml Inj IV 4 mg Q3H PRN Administration Nausea And Vomiting Pantoprazole Sodium 40 mg 09/11/21 16:30 09/16/21 09:16 Pantoprazole 40 Mg Tab PO 40 mg BIDAC LENY Administration Sodium Chloride 10 ml 09/09/21 22:00 09/15/21 22:15 Sodium Chloride 0.9% 10 Ml Flush Syringe IV 10 ml BID LENY Administration Sodium Chloride 10 ml 09/09/21 20:24 Sodium Chloride 0.9% 10 Ml Flush Syringe IV PRN PRN LINE FLUSH Tamsulosin HCl 0.8 mg 09/11/21 12:00 09/16/21 09:16 Tamsulosin 0.4 Mg Cap PO 0.8 mg QDAY LENY Administration
--- NOTE | 2021-09-16 12:32 | Progress Note ---
Assessment and Plan Assessment and plan: 61 years old male with past medical history of chronic kidney disease was brought to the hospital because of progressive shortness of breath as stated with vomiting and bleeding from nose for 1 day. Patient is a very poor historian. In the emergency room patient is found to have hemoglobin of 4.8 and hematocrit 14.9 also patient is found to have potassium of 7.1, bicarb 4, anion gap 54, BUN to 38 and creatinine 48.4, lactic acid 2.80. ABG shows pH 7.100, PCO2 20+0, PO2 60.9, bicarb 6.1 Subsequently Case was discussed with on-call GI doctor as well as nephrology who will do the hemodialysis immediately. We also put the patient on IMCU putting on bicarb drip, Protonix drip giving blood transfusion and consult critical care evaluation Hospital Course: 09/10: Improved on bedside encounter. Urology placed león catheter. Plan for nephrology to complete HD today. Hgb improved to 8.3, suspect anemia is purely from epistaxis, unclear if there was truly was a GI source. Will continue to monitor for other source of bleed. GI consulted, will follow recommendations. 09/11: hemoglobin stable. patient on encounter states he had recurrent epistaxis bleed leading up to hospitalization. Hgb stable this AM. Renal indices improved on bmp. Urine output 1000 cc yesterday. Troponin downtrending. D/w Dr. Juan A Martin, will d/c protonix IV, start on protonix 40 mg po bid. Transfer to floor bed. 09/12: Doing well on encounter today. on room air saturating 98%. Renal indices improving. León output approx: 2500 cc yday. [place] tingued urine noted, clearing up. hemoglobin 8.1, VSS. No plan for HD today per nephrology. We will continue to follow along for hemodialysis plan moving forward and nephrology final impression on renal prognosis. Anticipate d/c in next 24-48 hrs depending on this. Patient will likely need to be discharged with León catheter and instructions to follow-up with urology as an outpatient. 09/13: Patient remains clinically stable. Renal function appears to slightly worsened today. Nephrology noted the slight worsening. Will reevaluate in a.m. Patient undergoing 24-hour urine collection. From respiratory standpoint patient is stable acute respiratory failure secondary to fluid overload has resolved. Plan discussed with the patient in detail he verbalized understanding. 15 minutes counseling provided to the patient about continued cessation of EtOH use on lifestyle preventive care measures. We will monitor potassium level and slight of renal failure. 09/14: Patient seen and examined this morning hypokalemia persist also hy pocalcemia we will replace both potassium and calcium. Patient advised by matlab developer that he will be having dialysis today as creatinine is gradually creeping back up to 11.2 today. León remains in place with good urine output. Patient understands he will have to go home with a León and follow-up with urologist. Based on discussion with nephrology will determine if her permacath needs to be placed prior to discharge. I have also updated the and answered all questions. At this time awaiting renal recovery if possible. We will continue to monitor H&H 09/15: Patient seen and examined, no new complaints, review of labs shows improvement of renal function following HD yesterday, however HGB still decreasing. Will order a unit of PRBC and Hematology consultation. Further management and discharge plan depends on renal recovery and Nephrology input. Patient updated. 09/16: Patient seen and examined this morning. some response to blood transfusion noted. Reached out to nephrology to see if we should start planning for outpatient dialysis for this patient with the upward trend of creatinine following 2 days after dialysis. Appears the patient will get hemodialyzed again today. Overall concern for this patient is that he is got multiple issues pointing towards a poor renal resolution without dialysis outpatient. Will await nephrology input. He has had 4 units of packed red blood cell. Hemoglobin is at 7.7 Assessment and Plan: #Acute kidney injury due to post renal obstruction (improving) #Metabolic Acidosis (resolving) #Lactic Acidosis 2.8-> 2.1 (resolved) #Acute heart failure with preserved ejection fraction (ef 45-50%) #Hyperkalemia (resolved) #Hypokalemia #Uremia (resolved) #Urinary retention (resolving) #Hypocalcemia #Prostateamegaly - BUN to 38 and creatinine 48.4 -ABG pH 7.100, PCO2 20.0, PO2 60.9, bicarb 6.1 - K: 7.1, subsequently 3.2 - LA: 2.8->2.1 -nephrology consultation - urology called for león placement - noted prostatamegaly on ctap, ordered psa elevated to 5.18 - monitor electrolytes on serial renal profile - strict I/O, close UOP monitoring - avoid nephrotoxins, renally adjust medications - bicarb gtt to be continued per nephrology direction #Acute hypoxic respiratory failure (resolved) - O2 sat as low as 56% on admission, currently on room air satting 98%, not in respiratory distress - shortness of breath likely driven by severe anemia - cxr: no acute findings. - pulmonology following #Acute metabolic encephalopathy (resolved) - likely due to uremia - improving #hypertension - elevated BP - coreg dose increased, hold linsey-i due to renal fx. #Blood loss anemia s/p 4 units prbc (stable) likely secondary to renal failure #Epistaxis (appears resolved) - hx of recurrent epistaxis per son, patient had increased uncontrolled bleeding for 1 day. No prior hx of GI bleed or reported blood in stool. Uremia could have precipitated bleed. - Hgb: 4.8 on admission, s/p 4 units prbc, now 8's - transfuse prn Hgb< 7. - GI consulted due to concern for GI bleed on admission - protonix gtt, start protonix 40 mg po bid - unclear if this is truly GI source, will defer to gastroenterology, D/w Dr. Juan A Martin #Type II myocardial infarction (resolved) - supply demand from anemia in the setting TIFFANIE - serial troponins ordered, downtrending. -cardiology following, no intervention at this time. #EtOH use disorder person patient stopped a few weeks ago. #Sepsis ruled out, doubt infectious etiology. History Interval history: Patient seen and examined resting comfortably. No new complaints Hospitalist Physical - Physical exam Narrative exam: General appearance: Present: no acute distress, well-nourished, resting comfortably. alert, comfortable, and. Appears stated age - EENT Eyes: Present: PERRL ENT: hearing intact, clear oral mucosa - Neck Neck: Present: supple, normal ROM, RT IJ temp dialysis catheter. - Respiratory Respiratory effort: normal Respiratory: bilateral: diminished - Cardiovascular Heart Sounds: Present: S1 & S2. Absent: rub, click - Extremities Extremities: pulses symmetrical, No edema Peripheral Pulses: within normal limits - Abdominal General gastrointestinal: Present: soft, non-tender, non-distended, normal bowel sounds Male genitourinary: Present: normal - Integumentary Integumentary: Present: clear, warm, dry - Musculoskeletal Musculoskeletal: gait normal, strength equal bilaterally - Psychiatric Psychiatric: appropriate mood/affect, intact judgment & insight - Neurologic Neurologic: CNII-XII intact, moves all extremities : león catheter in place, pink urine in león bag. - Constitutional Vitals: Temp Pulse Resp BP Pulse Ox 98.0 F 91 H 16 154/90 98 09/16/21 04:39 09/16/21 04:39 09/16/21 04:39 09/16/21 09:19 09/16/21 11:00 General appearance: Present: no acute distress HEART Score - HEART Score Troponin: Troponin T 0.158 ng/mL (0.00-0.029) H* 09/10/21 Unknown Results - Labs CBC & Chem 7: 09/16/21 05:23 09/16/21 05:23 Labs: Laboratory Last Values WBC 8.4 K/mm3 (4.5-11.0) 09/16/21 05:23 RBC 2.86 M/mm3 (3.65-5.03) L 09/16/21 05:23 Hgb 7.8 gm/dl (11.8-15.2) L 09/16/21 05:23 Hct 24.2 % (35.5-45.6) L 09/16/21 05:23 MCV 85 fl (84-94) 09/16/21 05:23 MCH 27 pg (28-32) L 09/16/21 05:23 MCHC 32 % (32-34) 09/16/21 05:23 RDW 15.7 % (13.2-15.2) H 09/16/21 05:23 Plt Count 190 K/mm3 (140-440) 09/16/21 05:23 Lymph % (Auto) 11.6 % (13.4-35.0) L 09/15/21 05:08 [place] % (Auto) [place] 09/16/21 05:23 Eos % (Auto) 2.8 % (0.0-4.3) 09/15/21 05:08 Baso % (Auto) 0.8 % (0.0-1.8) 09/15/21 05:08 Lymph # (Auto) 0.8 K/mm3 (1.2-5.4) L 09/15/21 05:08 [place] # (Auto) 1.1 K/mm3 (0.0-0.8) H 09/15/21 05:08 Eos # (Auto) 0.2 K/mm3 (0.0-0.4) 09/15/21 05:08 Baso # (Auto) 0.1 K/mm3 (0.0-0.1) 09/15/21 05:08 Add Manual Diff Complete 09/16/21 05:23 Total Counted 100 09/16/21 05:23 Seg Neutrophils % 69.8 % (40.0-70.0) 09/15/21 05:08 Seg Neuts % (Manual) 72.0 % (40.0-70.0) H 09/16/21 05:23 Band Neutrophils % 0 % 09/16/21 05:23 Lymphocytes % (Manual) 9.0 % (13.4-35.0) L 09/16/21 05:23 Reactive Lymphs % (Man) 0 % 09/16/21 05:23 Monocytes % (Manual) 6.0 % (0.0-7.3) 09/16/21 05:23 Eosinophils % (Manual) 13.0 % (0.0-4.3) H 09/16/21 05:23 Basophils % (Manual) 0 % (0.0-1.8) 09/16/21 05:23 Metamyelocytes % 0 % 09/16/21 05:23 Myelocytes % 0 % 09/16/21 05:23 Promyelocytes % 0 % 09/16/21 05:23 Blast Cells % 0 % 09/16/21 05:23 Nucleated RBC % Not Reportable 09/16/21 05:23 Seg Neutrophils # 5.1 K/mm3 (1.8-7.7) 09/15/21 05:08 Seg Neutrophils # Man 6.0 K/mm3 (1.8-7.7) 09/16/21 05:23 Band Neutrophils # 0.0 K/mm3 09/16/21 05:23 Lymphocytes # (Manual) 0.8 K/mm3 (1.2-5.4) L 09/16/21 05:23 Abs React Lymphs (Man) 0.0 K/mm3 09/16/21 05:23 Monocytes # (Manual) 0.5 K/mm3 (0.0-0.8) 09/16/21 05:23 Eosinophils # (Manual) 1.1 K/mm3 (0.0-0.4) H 09/16/21 05:23 Basophils # (Manual) 0.0 K/mm3 (0.0-0.1) 09/16/21 05:23 Metamyelocytes # 0.0 K/mm3 09/16/21 05:23 Myelocytes # 0.0 K/mm3 09/16/21 05:23 Promyelocytes # 0.0 K/mm3 09/16/21 05:23 Blast Cells # 0.0 K/mm3 09/16/21 05:23 WBC Morphology Not Reportable 09/16/21 05:23 Hypersegmented Neuts Not Reportable 09/16/21 05:23 Hyposegmented Neuts Not Reportable 09/16/21 05:23 Hypogranular Neuts Not Reportable 09/16/21 05:23 Smudge Cells Not Reportable 09/16/21 05:23 Toxic Granulation Not Reportable 09/16/21 05:23 Toxic Vacuolation Not Reportable 09/16/21 05:23 Dohle Bodies Not Reportable 09/16/21 05:23 Pelger-Huet Anomaly Not Reportable 09/16/21 05:23 Francisco Javier Rods Not Reportable 09/16/21 05:23 Platelet Estimate Consistent w auto 09/16/21 05:23 Clumped Platelets Not Reportable 09/16/21 05:23 Plt Clumps, EDTA Not Reportable 09/16/21 05:23 Large Platelets Not Reportable 09/16/21 05:23 Giant Platelets Not Reportable 09/16/21 05:23 Platelet Satelliting Not Reportable 09/16/21 05:23 Plt Morphology Comment Not Reportable 09/16/21 05:23 RBC Morphology Not Reportable 09/16/21 05:23 Dimorphic RBCs Not Reportable 09/16/21 05:23 Polychromasia 1+ 09/16/21 05:23 Hypochromasia Not Reportable 09/16/21 05:23 Poikilocytosis Not Reportable 09/16/21 05:23 Anisocytosis Not Reportable 09/16/21 05:23 Microcytosis Not Reportable 09/16/21 05:23 Macrocytosis Not Reportable 09/16/21 05:23 Spherocytes 1+ 09/16/21 05:23 Pappenheimer Bodies Not Reportable 09/16/21 05:23 Sickle Cells Not Reportable 09/16/21 05:23 Target Cells 1+ 09/16/21 05:23 Tear Drop Cells Not Reportable 09/16/21 05:23 Ovalocytes Not Reportable 09/16/21 05:23 Stomatocytes Rare 09/10/21 Unknown Helmet Cells Not Reportable 09/16/21 05:23 [place]ash Bodies Not Reportable 09/16/21 05:23 [place] Rings Not Reportable 09/16/21 05:23 [place] Cells Not Reportable 09/16/21 05:23 Bite Cells Not Reportable 09/16/21 05:23 Crenated Cell Not Reportable 09/16/21 05:23 Elliptocytes Not Reportable 09/16/21 05:23 Acanthocytes (Spur) Not Reportable 09/16/21 05:23 Rouleaux Not Reportable 09/16/21 05:23 Hemoglobin C Crystals Not Reportable 09/16/21 05:23 Schistocytes Not Reportable 09/16/21 05:23 Malaria parasites Not Reportable 09/16/21 05:23 Jose Bodies Not Reportable 09/16/21 05:23 Hem Pathologist Commnt No 09/16/21 05:23 PT 16.6 Sec. (12.2-14.9) H 09/09/21 18:53 INR 1.20 (0.87-1.13) H 09/09/21 18:53 D-Dimer 2203.38 ng/mlDDU (0-234) H 09/09/21 18:53 ABG pH 7.100 pH Units (7.350-7.450) L* 09/09/21 21:00 ABG pCO2 20.0 mm Hg 09/09/21 21:00 ABG pO2 60.9 mm Hg (80.0-90.0) L 09/09/21 21:00 ABG HCO3 6.1 mmol/L (20.0-26.0) L 09/09/21 21:00 ABG O2 Saturation 81.1 % (95.0-99.0) L 09/09/21 21:00 ABG O2 Content 4.8 (0.0-44) 09/09/21 21:00 ABG Base Excess -21.5 mmol/L (-2.0-3.0) L 09/09/21 21:00 ABG Hemoglobin 5.0 gm/dl (14.0-18.0) L 09/09/21 21:00 ABG Carboxyhemoglobin 1.3 % (0.0-5.0) 09/09/21 21:00 ABG Methemoglobin 0.5 % (0.0-1.5) 09/09/21 21:00 Oxyhemoglobin 79.7 % (95.0-99.0) L 09/09/21 21:00 FiO2 28 % 09/09/21 21:00 Sodium 140 mmol/L (137-145) 09/16/21 05:23 Potassium 3.6 mmol/L (3.6-5.0) 09/16/21 05:23 Chloride 101.8 mmol/L (98-107) 09/16/21 05:23 Carbon Dioxide 26 mmol/L (22-30) 09/16/21 05:23 Anion Gap 16 mmol/L 09/16/21 05:23 BUN 42 mg/dL (9-20) H 09/16/21 05:23 Creatinine 8.6 mg/dL (0.8-1.3) H 09/16/21 05:23 Estimated GFR 8 ml/min 09/16/21 05:23 BUN/Creatinine Ratio 5 % 09/16/21 05:23 Glucose 94 mg/dL (75-100) 09/16/21 05:23 POC Glucose 147 mg/dL (70-105) H 09/10/21 07:35 Lactic Acid 2.10 mmol/L (0.7-2.0) H* 09/09/21 20:49 Calcium 7.0 mg/dL (8.4-10.2) L 09/16/21 05:23 Phosphorus 2.70 mg/dL (2.5-4.5) 09/16/21 05:23 Magnesium 1.70 mg/dL (1.7-2.3) 09/11/21 05:55 Total Bilirubin 0.30 mg/dL (0.1-1.2) 09/09/21 18:53 AST 17 units/L (5-40) 09/09/21 18:53 ALT 19 units/L (7-56) 09/09/21 18:53 Alkaline Phosphatase 57 units/L (35-129) 09/09/21 18:53 Ammonia 39.0 umol/L (25-60) 09/09/21 19:02 Total Creatine Kinase 1530 units/L (55-170) H 09/10/21 Unknown CK-MB (CK-2) 21.4 ng/mL (0.0-4.0) H 09/09/21 18:53 CK-MB (CK-2) Rel Index 1.2 (0-4) 09/09/21 18:53 Troponin T 0.158 ng/mL (0.00-0.029) H* 09/10/21 Unknown C-Reactive Protein 1.50 mg/dL (0.00-1.30) H 09/09/21 18:53 NT-Pro-B Natriuret Pep 6011 pg/mL (0-900) H 09/09/21 18:53 Total Protein 7.4 g/dL (6.3-8.2) 09/09/21 18:53 Albumin 4.2 g/dL (3.9-5) 09/09/21 18:53 Albumin/Globulin Ratio 1.3 % 09/09/21 18:53 Triglycerides 177 mg/dL (2-149) H 09/09/21 18:53 Cholesterol 170 mg/dL (50-199) 09/09/21 18:53 LDL Cholesterol Direct 107 mg/dL (50-130) 09/09/21 18:53 HDL Cholesterol 28 mg/dL (40-59) L 09/09/21 18:53 Cholesterol/HDL Ratio 6.07 % 09/09/21 18:53 Lipase 1198 units/L (13-60) H 09/09/21 18:53 Prostate Specific Ag 5.18 ng/mL (0.00-4.00) H 09/10/21 Unknown PTH Intact 259.3 pg/mL (15-65) H 09/14/21 23:27 Urine Color Straw (Yellow) 09/09/21 11:35 Urine Turbidity Clear (Clear) 09/09/21 11:35 Urine pH 6.0 (5.0-7.0) 09/09/21 11:35 Ur Specific [place] 1.011 (1.003-1.030) 09/09/21 11:35 Urine Protein 100 mg/dl mg/dL (Negative) 09/09/21 11:35 Urine Glucose (UA) 50 mg/dL (Negative) 09/09/21 11:35 Urine Ketones Neg mg/dL (Negative) 09/09/21 11:35 Urine Blood Mod (Negative) 09/09/21 11:35 Urine Nitrite Neg (Negative) 09/09/21 11:35 Urine Bilirubin Neg (Negative) 09/09/21 11:35 Urine Urobilinogen < 2.0 mg/dL (<2.0) 09/09/21 11:35 Ur Leukocyte Esterase Neg (Negative) 09/09/21 11:35 Urine WBC (Auto) 2.0 /HPF (0.0-6.0) 09/09/21 11:35 Urine RBC (Auto) 11.0 /HPF (0.0-6.0) 09/09/21 11:35 Urine Creatinine 112.8 mg/dL (0.1-20.0) H 09/10/21 11:35 Protein/Creatinin Ratio 1.78 09/10/21 11:35 Urine Total Protein 201 mg/dL (5-11.8) H 09/10/21 11:35 Urine Opiates Screen Presumptive negative 09/10/21 11:35 Urine Methadone Screen Presumptive negative 09/10/21 11:35 Ur Barbiturates Screen Presumptive negative 09/10/21 11:35 Ur Phencyclidine Scrn Presumptive negative 09/10/21 11:35 Ur Amphetamines Screen Presumptive negative 09/10/21 11:35 U Benzodiazepines Scrn Presumptive negative 09/10/21 11:35 Urine Cocaine Screen Presumptive negative 09/10/21 11:35 U Marijuana (THC) Screen Presumptive negative 09/10/21 11:35 Drugs of Abuse Note Disclamer 09/10/21 11:35 Plasma/Serum Alcohol < 0.01 % (0-0.07) 09/10/21 11:35 Hepatitis A IgM Ab Nonreactive (NonReactive) 09/09/21 20:55 Hep Bs Antigen Non-reactive (Negative) 09/09/21 20:55 Hep B Core IgM Ab Non-reactive (NonReactive) 09/09/21 20:55 Hepatitis C Antibody Non-reactive (NonReactive) 09/09/21 20:55 Blood Type O POSITIVE 09/15/21 07:50 Antibody Screen Negative 09/15/21 07:50 Crossmatch See Detail 09/15/21 07:50 León/IV: Voiding Method Indwelling Catheter Active Medications - Current Medications Current Medications: Generic Name Dose Route Start Last Admin Trade Name Freq PRN Reason Stop Dose Admin Acetaminophen 650 mg 09/09/21 20:24 Acetaminophen 325 Mg Tab PO Q4H PRN Pain MILD(1-3)/Fever >100.5/LOCO Amlodipine Besylate 10 mg 09/11/21 12:00 09/16/21 09:16 Amlodipine 10 Mg Tab PO 10 mg QDAY LENY Administration Calcitriol 0.5 mcg 09/14/21 19:00 09/16/21 09:16 Calcitriol 0.5 Mcg Cap PO 0.5 mcg QDAY LENY Administration Carvedilol 6.25 mg 09/12/21 22:00 09/16/21 09:16 Carvedilol 6.25 Mg Tab PO 6.25 mg BID LENY Administration Hydralazine HCl 10 mg 09/15/21 07:29 Hydralazine 20 Mg/1 Ml Inj IV Q4H PRN Hypertension Hydralazine HCl 50 mg 09/15/21 08:00 09/16/21 09:19 Hydralazine 25 Mg Tab PO 50 mg Q8H LENY Administration Sodium Chloride 1,000 mls @ 75 mls/hr 09/11/21 11:45 09/13/21 05:19 Nacl 0.9% 1000 Ml IV 75 mls/hr DIRECT LENY Administration Sodium Chloride 100 mls @ 999 mls/hr 09/14/21 09:58 Nacl 0.9% IV MARTI PRN Hypotension Labetalol HCl 10 mg 09/11/21 11:09 Labetalol 20 Mg/4 Ml Inj IV Q4HR PRN sbp>160 Metoclopramide HCl 5 mg 09/14/21 09:00 Metoclopramide 10 Mg/2 Ml Inj IV Q8H PRN Nausea And Vomiting Morphine Sulfate 2 mg 09/09/21 20:24 09/10/21 06:00 Morphine 2 Mg/1 Ml Inj IV 2 mg Q4H PRN Administration Pain, Moderate (4-6) Ondansetron HCl 4 mg 09/09/21 20:24 09/11/21 03:43 Ondansetron 4 Mg/2 Ml Inj IV 4 mg Q3H PRN Administration Nausea And Vomiting Pantoprazole Sodium 40 mg 09/11/21 16:30 09/16/21 09:16 Pantoprazole 40 Mg Tab PO 40 mg BIDAC LENY Administration Sodium Chloride 10 ml 09/09/21 22:00 09/15/21 22:15 Sodium Chloride 0.9% 10 Ml Flush Syringe IV 10 ml BID LENY Administration Sodium Chloride 10 ml 09/09/21 20:24 Sodium Chloride 0.9% 10 Ml Flush Syringe IV PRN PRN LINE FLUSH Tamsulosin HCl 0.8 mg 09/11/21 12:00 09/16/21 09:16 Tamsulosin 0.4 Mg Cap PO 0.8 mg QDAY LENY Administration Nutrition/Malnutrition Assess - Dietary Evaluation Nutrition/Malnutrition Findings: Nutrition Notes Start: 09/10/21 15:32 Freq: Status: Active Protocol: Document 09/13/21 17:41 VANESSA (Rec: 09/13/21 17:53 VANESSA [id number]) Nutrition Notes Initial or Follow up Brief Note Current Diagnosis CKD(stage I-IV),Hypertension Other Pertinent Diagnosis ARF/CKD, Anuria, Epistaxis, Anemia, STEMI II, Acidosis, SOB, EtOH Abuse... Current Diet Cardiac -Renal- Diet (since L 09/11), D Suppl (since B 09/14 ). Height 5 ft 8 in Weight 58.967 kg [place] Body Weight (kg) 70.00 BMI 19.8 Weight change and time frame No body weight change reported in 3 days. Weight Status Appropriate Subjective/Other Information RD consult for routine F/U on Dietary Advancement. Pt now on PO diet. No reports available on Pt's PO intake of meals at the time, will assess at F/U. Pt on Room Air, O2 saturation @ 99%, according to Physical Assessment History notes. Percent of energy/protein needs met: Prescribed Cardiac -Renal- Diet provides for energy/ protein needs (2,072 Kcal/77 g ) during LOS; additionally, Dietary Supplements will compensate for possible poor or insufficient PO intake of meals with 850 Kcal and 38 g of protein. #1 Nutrition Diagnosis Increased nutrient needs ( specify in comment below) Diagnosis Progress(for reassessment Continues documentation) Nutrition Intervention Change Diet Order: Continue Cardiac -Renal- Diet. Add Supplement/Snack (indicate name/kcal Start 8 fl oz Nepro w/ /protein ) CARBSTEADY; BID. Provides kCal: 850 Provides Protein (gm) 38 Goal #1 Support, through dietary supplementation, hematological balance processes during LOS. Goal #2 Adjust the dietary intervention to better serve Pt's needs and clinical conditions during LOS. Goal #3 Maintain body weight within +/ -3% of admission body weight during LOS. Follow-Up By: 09/20/21 Additional Comments Continue monitoring food tolerance, %PO intake of meals , and BM.
--- NOTE | 2021-09-16 12:53 | Hem/Onc Consultation ---
History of Present Illness - Reason for Consult Consult date: 09/16/21 - History of Present Illness Heme consult note Patient not seen, was in dialysis CPT 53026 Dx Anemia This is a 61yo male who presents to [facility] ED with complaints of progressive shortness of breath and nose bleeds. Past medical history of chronic kidney disease. Patient is a very poor historian. In the emergency room patient is found to have hemoglobin of 4.8 and hematocrit 14.9 also patient is found to have potassium of 7.1, bicarb 4, BUN to 38 and creatinine 48.4, lactic acid 2.80. Emergent HD initated, followed by nephrology. Received 4 units RBC transfusions this admission. Hematology was consulted for evaluation of anemia. DATA REVIEWED BELOW IMP: Anemia likely related to renal insufficiency S/p multiple RBC transfusions R/o hemoglobinopathy, hemolytic anemia Unable to evaluate iron studies post RBC transfusions PLAN: Labs to include LDH, retic, hemoglobin electrophoresis, spep Start Retacrit 8,000u 3 times a week Will start Ferrlicet 125mg due to recent bleed Tranfuse 1 unit RBC whenever hct <23 Laboratory Last Values WBC 8.4 K/mm3 (4.5-11.0) 09/16/21 05:23 Hgb 7.8 gm/dl (11.8-15.2) L 09/16/21 05:23 Hct 24.2 % (35.5-45.6) L 09/16/21 05:23 Plt Count 190 K/mm3 (140-440) 09/16/21 05:23 PT 16.6 Sec. (12.2-14.9) H 09/09/21 18:53 INR 1.20 (0.87-1.13) H 09/09/21 18:53 D-Dimer 2203.38 ng/mlDDU (0-234) H 09/09/21 18:53 Creatinine 8.6 mg/dL (0.8-1.3) H 09/16/21 05:23 Lactic Acid 2.10 mmol/L (0.7-2.0) H* 09/09/21 20:49 Calcium 7.0 mg/dL (8.4-10.2) L 09/16/21 05:23 Ammonia 39.0 umol/L (25-60) 09/09/21 19:02 Total Creatine Kinase 1530 units/L (55-170) H 09/10/21 Unknown CK-MB (CK-2) 21.4 ng/mL (0.0-4.0) H 09/09/21 18:53 CK-MB (CK-2) Rel Index 1.2 (0-4) 09/09/21 18:53 Troponin T 0.158 ng/mL (0.00-0.029) H* 09/10/21 Unknown C-Reactive Protein 1.50 mg/dL (0.00-1.30) H 09/09/21 18:53 NT-Pro-B Natriuret Pep 6011 pg/mL (0-900) H 09/09/21 18:53 Lipase 1198 units/L (13-60) H 09/09/21 18:53 Prostate Specific Ag 5.18 ng/mL (0.00-4.00) H 09/10/21 Unknown PTH Intact 259.3 pg/mL (15-65) H 09/14/21 23:27 Hepatitis A IgM Ab Nonreactive (NonReactive) 09/09/21 20:55 Hep Bs Antigen Non-reactive (Negative) 09/09/21 20:55 Hep B Core IgM Ab Non-reactive (NonReactive) 09/09/21 20:55 Hepatitis C Antibody Non-reactive (NonReactive) 09/09/21 20:55 Blood Type O POSITIVE 09/15/21 07:50 Antibody Screen Negative 09/15/21 07:50 Crossmatch See Detail 09/15/21 07:50 Past History Past Medical History: hypertension, renal failure Past Surgical History: No surgical history Social history: alcohol abuse Family history: hypertension Medications and Allergies Allergies Allergy/AdvReac Type Severity Reaction Status Date / Time No Known Allergies Allergy Unverified 01/17/17 01:04 Home Medications Medication Instructions Recorded Confirmed Last Taken Type Acetaminophen/Codeine [Tylenol #3] 1 tab PO Q6H PRN #7 tab 01/17/17 09/14/21 Unknown Rx Ibuprofen [Motrin] 600 mg PO Q8H PRN #15 tablet 01/17/17 09/14/21 Unknown Rx methOCARBAMOL [Robaxin TAB] 500 mg PO Q6H PRN #15 tablet 01/17/17 09/14/21 Unknown Rx Active Meds: Active Medications Acetaminophen (Acetaminophen 325 Mg Tab) 650 mg PO Q4H PRN PRN Reason: Pain MILD(1-3)/Fever >100.5/LOCO Amlodipine Besylate (Amlodipine 10 Mg Tab) 10 mg PO QDAY [facility] Last Admin: 09/16/21 09:16 Dose: 10 mg Calcitriol (Calcitriol 0.5 Mcg Cap) 0.5 mcg PO QDAY [facility] Last Admin: 09/16/21 09:16 Dose: 0.5 mcg Carvedilol (Carvedilol 6.25 Mg Tab) 6.25 mg PO BID [facility] Last Admin: 09/16/21 09:16 Dose: 6.25 mg Hydralazine HCl (Hydralazine 20 Mg/1 Ml Inj) 10 mg IV Q4H PRN PRN Reason: Hypertension Hydralazine HCl (Hydralazine 25 Mg Tab) 50 mg PO Q8H [facility] Last Admin: 09/16/21 09:19 Dose: 50 mg Sodium Chloride (Nacl 0.9% 1000 Ml) 1,000 mls @ 75 mls/hr IV DIRECT [facility] Last Admin: 09/13/21 05:19 Dose: 75 mls/hr Sodium Chloride (Nacl 0.9%) 100 mls @ 999 mls/hr IV MARTI PRN PRN Reason: Hypotension Labetalol HCl (Labetalol 20 Mg/4 Ml Inj) 10 mg IV Q4HR PRN PRN Reason: sbp>160 Metoclopramide HCl (Metoclopramide 10 Mg/2 Ml Inj) 5 mg IV Q8H PRN PRN Reason: Nausea And Vomiting Morphine Sulfate (Morphine 2 Mg/1 Ml Inj) 2 mg IV Q4H PRN PRN Reason: Pain, Moderate (4-6) Last Admin: 09/10/21 06:00 Dose: 2 mg Ondansetron HCl (Ondansetron 4 Mg/2 Ml Inj) 4 mg IV Q3H PRN PRN Reason: Nausea And Vomiting Last Admin: 09/11/21 03:43 Dose: 4 mg Pantoprazole Sodium ([facility]op[facility]ole 40 Mg Tab) [facility] Last Admin: 09/16/21 09:16 Dose: 40 mg Sodium Chloride (Sodium Chloride 0.9% 10 Ml Flush Syringe) 10 ml IV BID [facility] Last Admin: 09/15/21 22:15 Dose: 10 ml Sodium Chloride (Sodium Chloride 0.9% 10 Ml Flush Syringe) 10 ml IV PRN PRN PRN Reason: LINE FLUSH Tamsulosin HCl (Tamsulosin 0.4 Mg Cap) 0.8 mg PO QDAY [facility] Last Admin: 09/16/21 09:16 Dose: 0.8 mg Exam - Constitutional Vitals: Last Vital Signs Temp 98.0 F 09/16/21 04:39 Pulse 91 H 09/16/21 04:39 Resp 16 09/16/21 04:39 BP 154/90 09/16/21 09:19 Pulse Ox 98 09/16/21 11:00 Results - Labs lab Results: Laboratory Results - last 24 hr 09/09/21 09/15/21 09/16/21 20:10 07:50 05:23 WBC 8.4 RBC 2.86 L Hgb 7.8 L Hct 24.2 L MCV 85 MCH 27 L MCHC 32 RDW 15.7 H Plt Count 190 [place] % (Auto) Weapons Officer Add Manual Diff Complete Total Counted 100 Seg Neuts % (Manual) 72.0 H Band Neutrophils % 0 Lymphocytes % (Manual) 9.0 L Reactive Lymphs % (Man) 0 Monocytes % (Manual) 6.0 Eosinophils % (Manual) 13.0 H Basophils % (Manual) 0 Metamyelocytes % 0 Myelocytes % 0 Promyelocytes % 0 Blast Cells % 0 Nucleated RBC % Not Reportable Seg Neutrophils # Man 6.0 Band Neutrophils # 0.0 Lymphocytes # (Manual) 0.8 L Abs React Lymphs (Man) 0.0 Monocytes # (Manual) 0.5 Eosinophils # (Manual) 1.1 H Basophils # (Manual) 0.0 Metamyelocytes # 0.0 Myelocytes # 0.0 Promyelocytes # 0.0 Blast Cells # 0.0 WBC Morphology Not Reportable Hypersegmented Neuts Not Reportable Hyposegmented Neuts Not Reportable Hypogranular Neuts Not Reportable Smudge Cells Not Reportable Toxic Granulation Not Reportable Toxic Vacuolation Not Reportable Dohle Bodies Not Reportable Pelger-Huet Anomaly Not Reportable Francisco Javier Rods Not Reportable Platelet Estimate Consistent w auto Clumped Platelets Not Reportable Plt Clumps, EDTA Not Reportable Large Platelets Not Reportable Giant Platelets Not Reportable Platelet Satelliting Not Reportable Plt Morphology Comment Not Reportable RBC Morphology Not Reportable Dimorphic RBCs Not Reportable Polychromasia 1+ Hypochromasia Not Reportable Poikilocytosis Not Reportable Anisocytosis Not Reportable Microcytosis Not Reportable Macrocytosis Not Reportable Spherocytes 1+ Pappenheimer Bodies Not Reportable Sickle Cells Not Reportable Target Cells 1+ Tear Drop Cells Not Reportable Ovalocytes Not Reportable Helmet Cells Not Reportable [place] Bodies Not Reportable [place] Rings Not Reportable [place] Cells Not Reportable Bite Cells Not Reportable Crenated Cell Not Reportable Elliptocytes Not Reportable Acanthocytes (Spur) Not Reportable Rouleaux Not Reportable Hemoglobin C Crystals Not Reportable Schistocytes Not Reportable Malaria parasites Not Reportable Jose Bodies Not Reportable Hem Pathologist Commnt No Sodium Potassium Chloride Carbon Dioxide Anion Gap BUN Creatinine Estimated GFR BUN/Creatinine Ratio Glucose Calcium Phosphorus Blood Type O POSITIVE Antibody Screen Negative Crossmatch See Detail See Detail 09/16/21 05:23 WBC RBC Hgb Hct MCV MCH MCHC RDW Plt Count [place] % (Auto) Add Manual Diff Total Counted Seg Neuts % (Manual) Band Neutrophils % Lymphocytes % (Manual) Reactive Lymphs % (Man) Monocytes % (Manual) Eosinophils % (Manual) Basophils % (Manual) Metamyelocytes % Myelocytes % Promyelocytes % Blast Cells % Nucleated RBC % Seg Neutrophils # Man Band Neutrophils # Lymphocytes # (Manual) Abs React Lymphs (Man) Monocytes # (Manual) Eosinophils # (Manual) Basophils # (Manual) Metamyelocytes # Myelocytes # Promyelocytes # Blast Cells # WBC Morphology Hypersegmented Neuts Hyposegmented Neuts Hypogranular Neuts Smudge Cells Toxic Granulation Toxic Vacuolation Dohle Bodies Pelger-Huet Anomaly Francisco Javier Rods Platelet Estimate Clumped Platelets Plt Clumps, EDTA Large Platelets Giant Platelets Platelet Satelliting Plt Morphology Comment RBC Morphology Dimorphic RBCs Polychromasia Hypochromasia Poikilocytosis Anisocytosis Microcytosis Macrocytosis Spherocytes Pappenheimer Bodies Sickle Cells Target Cells Tear Drop Cells Ovalocytes Helmet Cells [place] Bodies [place] Rings [place] Cells Bite Cells Crenated Cell Elliptocytes Acanthocytes (Spur) Rouleaux Hemoglobin C Crystals Schistocytes Malaria parasites Jose Bodies Hem Pathologist Commnt Sodium 140 Potassium 3.6 Chloride 101.8 Carbon Dioxide 26 Anion Gap 16 BUN 42 H Creatinine 8.6 H Estimated GFR 8 BUN/Creatinine Ratio 5 Glucose 94 Calcium 7.0 L Phosphorus 2.70 Blood Type Antibody Screen Crossmatch
[2021-09-16] MEDS: EPOETIN ALFA-EPBX 10,000 UNIT/1 ML VIAL SUB-Q SCH (14:15)
[2021-09-16] MEDS: SODIUM FERRIC GLUCON/SUCRO 125 MG in SODIUM CHLORIDE 0.9% 100 ML IV SCH (15:33)
[2021-09-16] MEDS: SODIUM CHLORIDE 0.9% 1000 ML 1,000 ML IV SCH (21:37)
[2021-09-17] MEDS: PANTOPRAZOLE 40 MG TAB PO SCH ×2 (08:12→16:32)
[2021-09-17] MEDS: hydrALAZINE 25 MG TAB PO SCH ×3 (08:12→23:23)
[2021-09-17] MEDS: SODIUM FERRIC GLUCON/SUCRO 125 MG in SODIUM CHLORIDE 0.9% 100 ML IV SCH (09:32)
[2021-09-17] MEDS: CALCITRIOL 0.5 MCG CAP PO SCH (09:33)
[2021-09-17] MEDS: carvediloL 6.25 MG TAB PO SCH ×2 (09:33→22:12)
[2021-09-17] MEDS: TAMSULOSIN 0.4 MG CAP PO SCH (09:33)
[2021-09-17] MEDS: amLODIPine 10 MG TAB PO SCH (09:33)
--- NOTE | 2021-09-17 10:33 | Progress Note ---
Assessment and Plan Assessment and plan: 61 years old male with past medical history of chronic kidney disease was brought to the hospital because of progressive shortness of breath as stated with vomiting and bleeding from nose for 1 day. Patient is a very poor historian. In the emergency room patient is found to have hemoglobin of 4.8 and hematocrit 14.9 also patient is found to have potassium of 7.1, bicarb 4, anion gap 54, BUN to 38 and creatinine 48.4, lactic acid 2.80. ABG shows pH 7.100, PCO2 20+0, PO2 60.9, bicarb 6.1. The patient was admitted to critical care and underwent emergent hemodialysis. Acute kidney injury due to post renal obstruction Metabolic Acidosis (resolving) Lactic Acidosis 2.8-> 2.1 (resolved) Acute heart failure with preserved ejection fraction (ef 45-50%) Hyperkalemia (resolved) Hypokalemia Uremia (resolved) Urinary retention (resolving) Hypocalcemia Prostateamegaly - psa elevated to 5.18 - monitor electrolytes on serial renal profile - strict I/O, close UOP monitoring - avoid nephrotoxins, renally adjust medications Acute hypoxic respiratory failure (resolved) - O2 sat as low as 56% on admission, currently on room air satting greater than 92% - cxr: no acute findings. - pulmonology following Acute metabolic encephalopathy (resolved) - likely due to uremia - improving hypertension - elevated BP - coreg dose increased, hold linsey-i due to renal fx. Anemia s/p prbcs (stable) likely secondary epistatixis and renal insufficiency. R/o hemoglobinopathy, hemolytic anemia Unable to evaluate iron studies post RBC transfusions Epistaxis (appears resolved) - hx of recurrent epistaxis per son, patient had increased uncontrolled bleeding for 1 day. No prior hx of GI bleed or reported blood in stool. Uremia could have precipitated bleed. - Hgb: 4.8 on admission, s/p 4 units prbc, now 8's - transfuse prn Hgb< 7. - GI consulted due to concern for GI bleed on admission - protonix 40 mg po bid - unclear if this is truly GI source Type II myocardial infarction (resolved) - supply demand from anemia in the setting TIFFANIE - serial troponins ordered, downtrending. -cardiology following, no intervention at this time. EtOH use disorder person patient stopped a few weeks ago. Sepsis ruled out, doubt infectious etiology. Hospital Course: 09/10: Improved on bedside encounter. Urology placed león catheter. Plan for nephrology to complete HD today. Hgb improved to 8.3, suspect anemia is purely from epistaxis, unclear if there was truly was a GI source. Will continue to monitor for other source of bleed. GI consulted, will follow recommendations. 09/11: hemoglobin stable. patient on encounter states he had recurrent epistaxis bleed leading up to hospitalization. Hgb stable this AM. Renal indices improved on bmp. Urine output 1000 cc yesterday. Troponin downtrending. D/w Dr. Juan A Martin, will d/c protonix IV, start on protonix 40 mg po bid. Transfer to floor bed. 09/12: Doing well on encounter today. on room air saturating 98%. Renal indices improving. León output approx: 2500 cc yday. [place] tingued urine noted, clearing up. hemoglobin 8.1, VSS. No plan for HD today per nephrology. We will continue to follow along for hemodialysis plan moving forward and nephrology final impression on renal prognosis. Anticipate d/c in next 24-48 hrs depending on this. Patient will likely need to be discharged with León catheter and in structions to follow-up with urology as an outpatient. 09/13: Patient remains clinically stable. Renal function appears to slightly worsened today. Nephrology noted the slight worsening. Will reevaluate in a.m. Patient undergoing 24-hour urine collection. From respiratory standpoint patient is stable acute respiratory failure secondary to fluid overload has resolved. Plan discussed with the patient in detail he verbalized understanding. 15 minutes counseling provided to the patient about continued cessation of EtOH use on lifestyle preventive care measures. We will monitor potassium level and slight of renal failure. 09/14: Patient seen and examined this morning hypokalemia persist also hypocalcemia we will replace both potassium and calcium. Patient advised by chainstitch hemmer that he will be having dialysis today as creatinine is gradually creeping back up to 11.2 today. León remains in place with good urine output. Patient understands he will have to go home with a León and follow-up with urologist. Based on discussion with nephrology will determine if her permacath needs to be placed prior to discharge. I have also updated the and answered all questions. At this time awaiting renal recovery if possible. We will continue to monitor H&H 09/15: Patient seen and examined, no new complaints, review of labs shows improvement of renal function following HD yesterday, however HGB still decreasing. Will order a unit of PRBC and Hematology consultation. Further management and discharge plan depends on renal recovery and Nephrology input. Patient updated. 09/16: Patient seen and examined this morning. some response to blood transfusion noted. Reached out to nephrology to see if we should start planning for outpatient dialysis for this patient with the upward trend of creatinine following 2 days after dialysis. Appears the patient will get hemodialyzed again today. Overall concern for this patient is that he is got multiple issues pointing towards a poor renal resolution without dialysis outpatient. Will await nephrology input. He has had 4 units of packed red blood cell. Hemoglobin is at 7.7 09/17: Nephrology to hold hemodialysis today and monitor for renal recovery off hemodialysis. IV fluid increased. Follow-up 24-hour urine collection. Patient was initiated on hemodialysis on 09/10/21 due to severe renal failure coupled with severe Hyperkalemia and Acidosis. CT AP showed BL hydronephrosis and bladder scan was positive for urinary retention. Urology consulted and placed león and recommended Flomax and to call them for león catheter removal. Continue on Flomax 0.8 mg daily. Monitor post obstructive diuresis closely. Renally dose medications. Avoid nephrotoxic agents. Strict I&O's daily. Obtain daily weights. Assess dialysis needs daily. Follow-up labs LDH, retic, hemoglobin electrophoresis, spep. Hematology started Ferrlecit. Transfuse for hemoglobin less than 7 History Interval history: No new issues overnight Hospitalist Physical - Constitutional Vitals: Temp Pulse Resp BP Pulse Ox 98.6 F 93 H 20 144/83 96 09/17/21 06:10 09/17/21 06:10 09/17/21 06:10 09/17/21 06:10 09/17/21 09:59 General appearance: Present: no acute distress - EENT Eyes: Present: PERRL, EOM intact ENT: hearing intact, clear oral mucosa, dentition normal - Neck Neck: Present: supple, normal ROM - Respiratory Respiratory effort: normal Respiratory: bilateral: CTA - Cardiovascular Rhythm: regular Heart Sounds: Present: S1 & S2. Absent: gallop, rub - Extremities Extremities: no ischemia, No edema, Full ROM - Abdominal General gastrointestinal: soft, non-tender, non-distended, normal bowel sounds - Integumentary Integumentary: Present: clear, warm, dry - Neurologic Neurologic: CNII-XII intact, moves all extremities HEART Score - HEART Score Troponin: Troponin T 0.158 ng/mL (0.00-0.029) H* 09/10/21 Unknown Results - Labs CBC & Chem 7: 09/16/21 05:23 09/16/21 05:23 Labs: Laboratory Last Values WBC 8.4 K/mm3 (4.5-11.0) 09/16/21 05:23 RBC 2.86 M/mm3 (3.65-5.03) L 09/16/21 05:23 Hgb 7.8 gm/dl (11.8-15.2) L 09/16/21 05:23 Hct 24.2 % (35.5-45.6) L 09/16/21 05:23 MCV 85 fl (84-94) 09/16/21 05:23 MCH 27 pg (28-32) L 09/16/21 05:23 MCHC 32 % (32-34) 09/16/21 05:23 RDW 15.7 % (13.2-15.2) H 09/16/21 05:23 Plt Count 190 K/mm3 (140-440) 09/16/21 05:23 Lymph % (Auto) 11.6 % (13.4-35.0) L 09/15/21 05:08 [place] % (Auto) Property Management Specialist 09/16/21 05:23 Eos % (Auto) 2.8 % (0.0-4.3) 09/15/21 05:08 Baso % (Auto) 0.8 % (0.0-1.8) 09/15/21 05:08 Lymph # (Auto) 0.8 K/mm3 (1.2-5.4) L 09/15/21 05:08 [place] # (Auto) 1.1 K/mm3 (0.0-0.8) H 09/15/21 05:08 Eos # (Auto) 0.2 K/mm3 (0.0-0.4) 09/15/21 05:08 Baso # (Auto) 0.1 K/mm3 (0.0-0.1) 09/15/21 05:08 Add Manual Diff Complete 09/16/21 05:23 Total Counted 100 09/16/21 05:23 Seg Neutrophils % 69.8 % (40.0-70.0) 09/15/21 05:08 Seg Neuts % (Manual) 72.0 % (40.0-70.0) H 09/16/21 05:23 Band Neutrophils % 0 % 09/16/21 05:23 Lymphocytes % (Manual) 9.0 % (13.4-35.0) L 09/16/21 05:23 Reactive Lymphs % (Man) 0 % 09/16/21 05:23 Monocytes % (Manual) 6.0 % (0.0-7.3) 09/16/21 05:23 Eosinophils % (Manual) 13.0 % (0.0-4.3) H 09/16/21 05:23 Basophils % (Manual) 0 % (0.0-1.8) 09/16/21 05:23 Metamyelocytes % 0 % 09/16/21 05:23 Myelocytes % 0 % 09/16/21 05:23 Promyelocytes % 0 % 09/16/21 05:23 Blast Cells % 0 % 09/16/21 05:23 Nucleated RBC % Not Reportable 09/16/21 05:23 Seg Neutrophils # 5.1 K/mm3 (1.8-7.7) 09/15/21 05:08 Seg Neutrophils # Man 6.0 K/mm3 (1.8-7.7) 09/16/21 05:23 Band Neutrophils # 0.0 K/mm3 09/16/21 05:23 Lymphocytes # (Manual) 0.8 K/mm3 (1.2-5.4) L 09/16/21 05:23 Abs React Lymphs (Man) 0.0 K/mm3 09/16/21 05:23 Monocytes # (Manual) 0.5 K/mm3 (0.0-0.8) 09/16/21 05:23 Eosinophils # (Manual) 1.1 K/mm3 (0.0-0.4) H 09/16/21 05:23 Basophils # (Manual) 0.0 K/mm3 (0.0-0.1) 09/16/21 05:23 Metamyelocytes # 0.0 K/mm3 09/16/21 05:23 Myelocytes # 0.0 K/mm3 09/16/21 05:23 Promyelocytes # 0.0 K/mm3 09/16/21 05:23 Blast Cells # 0.0 K/mm3 09/16/21 05:23 WBC Morphology Not Reportable 09/16/21 05:23 Hypersegmented Neuts Not Reportable 09/16/21 05:23 Hyposegmented Neuts Not Reportable 09/16/21 05:23 Hypogranular Neuts Not Reportable 09/16/21 05:23 Smudge Cells Not Reportable 09/16/21 05:23 Toxic Granulation Not Reportable 09/16/21 05:23 Toxic Vacuolation Not Reportable 09/16/21 05:23 Dohle Bodies Not Reportable 09/16/21 05:23 Pelger-Huet Anomaly Not Reportable 09/16/21 05:23 Francisco Javier Rods Not Reportable 09/16/21 05:23 Platelet Estimate Consistent w auto 09/16/21 05:23 Clumped Platelets Not Reportable 09/16/21 05:23 Plt Clumps, EDTA Not Reportable 09/16/21 05:23 Large Platelets Not Reportable 09/16/21 05:23 Giant Platelets Not Reportable 09/16/21 05:23 Platelet Satelliting Not Reportable 09/16/21 05:23 Plt Morphology Comment Not Reportable 09/16/21 05:23 RBC Morphology Not Reportable 09/16/21 05:23 Dimorphic RBCs Not Reportable 09/16/21 05:23 Polychromasia 1+ 09/16/21 05:23 Hypochromasia Not Reportable 09/16/21 05:23 Poikilocytosis Not Reportable 09/16/21 05:23 Anisocytosis Not Reportable 09/16/21 05:23 Microcytosis Not Reportable 09/16/21 05:23 Macrocytosis Not Reportable 09/16/21 05:23 Spherocytes 1+ 09/16/21 05:23 Pappenheimer Bodies Not Reportable 09/16/21 05:23 Sickle Cells Not Reportable 09/16/21 05:23 Target Cells 1+ 09/16/21 05:23 Tear Drop Cells Not Reportable 09/16/21 05:23 Ovalocytes Not Reportable 09/16/21 05:23 Stomatocytes Rare 09/10/21 Unknown Helmet Cells Not Reportable 09/16/21 05:23 [place] Bodies Not Reportable 09/16/21 05:23 [place] Rings Not Reportable 09/16/21 05:23 Vika Cells Not Reportable 09/16/21 05:23 Bite Cells Not Reportable 09/16/21 05:23 Crenated Cell Not Reportable 09/16/21 05:23 Elliptocytes Not Reportable 09/16/21 05:23 Acanthocytes (Spur) Not Reportable 09/16/21 05:23 Rouleaux Not Reportable 09/16/21 05:23 Hemoglobin C Crystals Not Reportable 09/16/21 05:23 Schistocytes Not Reportable 09/16/21 05:23 Malaria parasites Not Reportable 09/16/21 05:23 Jose Bodies Not Reportable 09/16/21 05:23 Hem Pathologist Commnt No 09/16/21 05:23 PT 16.6 Sec. (12.2-14.9) H 09/09/21 18:53 INR 1.20 (0.87-1.13) H 09/09/21 18:53 D-Dimer 2203.38 ng/mlDDU (0-234) H 09/09/21 18:53 ABG pH 7.100 pH Units (7.350-7.450) L* 09/09/21 21:00 ABG pCO2 20.0 mm Hg 09/09/21 21:00 ABG pO2 60.9 mm Hg (80.0-90.0) L 09/09/21 21:00 ABG HCO3 6.1 mmol/L (20.0-26.0) L 09/09/21 21:00 ABG O2 Saturation 81.1 % (95.0-99.0) L 09/09/21 21:00 ABG O2 Content 4.8 (0.0-44) 09/09/21 21:00 ABG Base Excess -21.5 mmol/L (-2.0-3.0) L 09/09/21 21:00 ABG Hemoglobin 5.0 gm/dl (14.0-18.0) L 09/09/21 21:00 ABG Carboxyhemoglobin 1.3 % (0.0-5.0) 09/09/21 21:00 ABG Methemoglobin 0.5 % (0.0-1.5) 09/09/21 21:00 Oxyhemoglobin 79.7 % (95.0-99.0) L 09/09/21 21:00 FiO2 28 % 09/09/21 21:00 Sodium 140 mmol/L (137-145) 09/16/21 05:23 Potassium 3.6 mmol/L (3.6-5.0) 09/16/21 05:23 Chloride 101.8 mmol/L (98-107) 09/16/21 05:23 Carbon Dioxide 26 mmol/L (22-30) 09/16/21 05:23 Anion Gap 16 mmol/L 09/16/21 05:23 BUN 42 mg/dL (9-20) H 09/16/21 05:23 Creatinine 8.6 mg/dL (0.8-1.3) H 09/16/21 05:23 Estimated GFR 8 ml/min 09/16/21 05:23 BUN/Creatinine Ratio 5 % 09/16/21 05:23 Glucose 94 mg/dL (75-100) 09/16/21 05:23 POC Glucose 147 mg/dL (70-105) H 09/10/21 07:35 Lactic Acid 2.10 mmol/L (0.7-2.0) H* 09/09/21 20:49 Calcium 7.0 mg/dL (8.4-10.2) L 09/16/21 05:23 Phosphorus 2.70 mg/dL (2.5-4.5) 09/16/21 05:23 Magnesium 1.70 mg/dL (1.7-2.3) 09/11/21 05:55 Total Bilirubin 0.30 mg/dL (0.1-1.2) 09/09/21 18:53 AST 17 units/L (5-40) 09/09/21 18:53 ALT 19 units/L (7-56) 09/09/21 18:53 Alkaline Phosphatase 57 units/L (35-129) 09/09/21 18:53 Ammonia 39.0 umol/L (25-60) 09/09/21 19:02 Total Creatine Kinase 1530 units/L (55-170) H 09/10/21 Unknown CK-MB (CK-2) 21.4 ng/mL (0.0-4.0) H 09/09/21 18:53 CK-MB (CK-2) Rel Index 1.2 (0-4) 09/09/21 18:53 Troponin T 0.158 ng/mL (0.00-0.029) H* 09/10/21 Unknown C-Reactive Protein 1.50 mg/dL (0.00-1.30) H 09/09/21 18:53 NT-Pro-B Natriuret Pep 6011 pg/mL (0-900) H 09/09/21 18:53 Total Protein 7.4 g/dL (6.3-8.2) 09/09/21 18:53 Albumin 4.2 g/dL (3.9-5) 09/09/21 18:53 Albumin/Globulin Ratio 1.3 % 09/09/21 18:53 Triglycerides 177 mg/dL (2-149) H 09/09/21 18:53 Cholesterol 170 mg/dL (50-199) 09/09/21 18:53 LDL Cholesterol Direct 107 mg/dL (50-130) 09/09/21 18:53 HDL Cholesterol 28 mg/dL (40-59) L 09/09/21 18:53 Cholesterol/HDL Ratio 6.07 % 09/09/21 18:53 Lipase 1198 units/L (13-60) H 09/09/21 18:53 Prostate Specific Ag 5.18 ng/mL (0.00-4.00) H 09/10/21 Unknown PTH Intact 259.3 pg/mL (15-65) H 09/14/21 23:27 Urine Color Straw (Yellow) 09/09/21 11:35 Urine Turbidity Clear (Clear) 09/09/21 11:35 Urine pH 6.0 (5.0-7.0) 09/09/21 11:35 Ur Specific [place] 1.011 (1.003-1.030) 09/09/21 11:35 Urine Protein 100 mg/dl mg/dL (Negative) 09/09/21 11:35 Urine Glucose (UA) 50 mg/dL (Negative) 09/09/21 11:35 Urine Ketones Neg mg/dL (Negative) 09/09/21 11:35 Urine Blood Mod (Negative) 09/09/21 11:35 Urine Nitrite Neg (Negative) 09/09/21 11:35 Urine Bilirubin Neg (Negative) 09/09/21 11:35 Urine Urobilinogen < 2.0 mg/dL (<2.0) 09/09/21 11:35 Ur Leukocyte Esterase Neg (Negative) 09/09/21 11:35 Urine WBC (Auto) 2.0 /HPF (0.0-6.0) 09/09/21 11:35 Urine RBC (Auto) 11.0 /HPF (0.0-6.0) 09/09/21 11:35 Urine Creatinine 112.8 mg/dL (0.1-20.0) H 09/10/21 11:35 Protein/Creatinin Ratio 1.78 09/10/21 11:35 Urine Total Protein 201 mg/dL (5-11.8) H 09/10/21 11:35 Urine Opiates Screen Presumptive negative 09/10/21 11:35 Urine Methadone Screen Presumptive negative 09/10/21 11:35 Ur Barbiturates Screen Presumptive negative 09/10/21 11:35 Ur Phencyclidine Scrn Presumptive negative 09/10/21 11:35 Ur Amphetamines Screen Presumptive negative 09/10/21 11:35 U Benzodiazepines Scrn Presumptive negative 09/10/21 11:35 Urine Cocaine Screen Presumptive negative 09/10/21 11:35 U Marijuana (THC) Screen Presumptive negative 09/10/21 11:35 Drugs of Abuse Note Disclamer 09/10/21 11:35 Plasma/Serum Alcohol < 0.01 % (0-0.07) 09/10/21 11:35 Hepatitis A IgM Ab Nonreactive (NonReactive) 09/09/21 20:55 Hep Bs Antigen Non-reactive (Negative) 09/09/21 20:55 Hep B Core IgM Ab Non-reactive (NonReactive) 09/09/21 20:55 Hepatitis C Antibody Non-reactive (NonReactive) 09/09/21 20:55 Blood Type O POSITIVE 09/15/21 07:50 Antibody Screen Negative 09/15/21 07:50 Crossmatch See Detail 09/15/21 07:50 León/IV: Voiding Method Indwelling Catheter Active Medications - Current Medications Current Medications: Generic Name Dose Route Start Last Admin Trade Name Freq PRN Reason Stop Dose Admin Acetaminophen 650 mg 09/09/21 20:24 Acetaminophen 325 Mg Tab PO Q4H PRN Pain MILD(1-3)/Fever >100.5/LOCO Amlodipine Besylate 10 mg 09/11/21 12:00 09/17/21 09:33 Amlodipine 10 Mg Tab PO 10 mg QDAY LENY Administration Calcitriol 0.5 mcg 09/14/21 19:00 09/17/21 09:33 Calcitriol 0.5 Mcg Cap PO 0.5 mcg QDAY LENY Administration Carvedilol 6.25 mg 09/12/21 22:00 09/17/21 09:33 Carvedilol 6.25 Mg Tab PO 6.25 mg BID LENY Administration Epoetin Alex-epbx 8,000 unit 09/16/21 16:00 09/16/21 14:15 Epoetin Alex-Epbx 10,000 Unit/1 Ml Vial SUB-Q 8,000 unit MoWeFr LENY Administration Hydralazine HCl 10 mg 09/15/21 07:29 Hydralazine 20 Mg/1 Ml Inj IV Q4H PRN Hypertension Hydralazine HCl 50 mg 09/15/21 08:00 09/17/21 08:12 Hydralazine 25 Mg Tab PO 50 mg Q8H LENY Administration Sodium Chloride 1,000 mls @ 125 mls/hr 09/11/21 11:45 09/16/21 21:37 Nacl 0.9% 1000 Ml IV 75 mls/hr DIRECT LENY Administration Sodium Chloride 100 mls @ 999 mls/hr 09/14/21 09:58 Nacl 0.9% IV MARTI PRN Hypotension Ferric Sodium Gluconate 110 mls @ 100 mls/hr 09/16/21 14:00 09/17/21 09:32 Complex 125 mg/ Sodium IV 09/18/21 11:05 100 mls/hr Chloride DAILY LENY Administration Labetalol HCl 10 mg 09/11/21 11:09 Labetalol 20 Mg/4 Ml Inj IV Q4HR PRN sbp>160 Metoclopramide HCl 5 mg 09/14/21 09:00 Metoclopramide 10 Mg/2 Ml Inj IV Q8H PRN Nausea And Vomiting Morphine Sulfate 2 mg 09/09/21 20:24 09/10/21 06:00 Morphine 2 Mg/1 Ml Inj IV 2 mg Q4H PRN Administration Pain, Moderate (4-6) Ondansetron HCl 4 mg 09/09/21 20:24 09/11/21 03:43 Ondansetron 4 Mg/2 Ml Inj IV 4 mg Q3H PRN Administration Nausea And Vomiting Pantoprazole Sodium 40 mg 09/11/21 16:30 09/17/21 08:12 Pantoprazole 40 Mg Tab PO 40 mg BIDAC LENY Administration Sodium Chloride 10 ml 09/09/21 22:00 09/17/21 09:35 Sodium Chloride 0.9% 10 Ml Flush Syringe IV 10 ml BID LENY Administration Sodium Chloride 10 ml 09/09/21 20:24 Sodium Chloride 0.9% 10 Ml Flush Syringe IV PRN PRN LINE FLUSH Tamsulosin HCl 0.8 mg 09/11/21 12:00 09/17/21 09:33 Tamsulosin 0.4 Mg Cap PO 0.8 mg QDAY LENY Administration Nutrition/Malnutrition Assess - Dietary Evaluation Nutrition/Malnutrition Findings: Nutrition Notes Start: 09/10/21 15:32 Freq: Status: Active Protocol: Document 09/13/21 17:41 VANESSA (Rec: 09/13/21 17:53 VANESSA [id number]) Nutrition Notes Initial or Follow up Brief Note Current Diagnosis CKD(stage I-IV),Hypertension Other Pertinent Diagnosis ARF/CKD, Anuria, Epistaxis, Anemia, STEMI II, Acidosis, SOB, EtOH Abuse... Current Diet Cardiac -Renal- Diet (since L 09/11), D Suppl (since B 09/14 ). Height 5 ft 8 in Weight 58.967 kg [place] Body Weight (kg) 70.00 BMI 19.8 Weight change and time frame No body weight change reported in 3 days. Weight Status Appropriate Subjective/Other Information RD consult for routine F/U on Dietary Advancement. Pt now on PO diet. No reports available on Pt's PO intake of meals at the time, will assess at F/U. Pt on Room Air, O2 saturation @ 99%, according to Physical Assessment History notes. Percent of energy/protein needs met: Prescribed Cardiac -Renal- Diet provides for energy/ protein needs (2,072 Kcal/77 g ) during LOS; additionally, Dietary Supplements will compensate for possible poor or insufficient PO intake of meals with 850 Kcal and 38 g of protein. #1 Nutrition Diagnosis Increased nutrient needs ( specify in comment below) Diagnosis Progress(for reassessment Continues documentation) Nutrition Intervention Change Diet Order: Continue Cardiac -Renal- Diet. Add Supplement/Snack (indicate name/kcal Start 8 fl oz Nepro w/ /protein ) CARBSTEADY; BID. Provides kCal: 850 Provides Protein (gm) 38 Goal #1 Support, through dietary supplementation, hematological balance processes during LOS. Goal #2 Adjust the dietary intervention to better serve Pt's needs and clinical conditions during LOS. Goal #3 Maintain body weight within +/ -3% of admission body weight during LOS. Follow-Up By: 09/20/21 Additional Comments Continue monitoring food tolerance, %PO intake of meals , and BM.
[2021-09-17 10:53] LABS: Basophils # (Auto) 0.1 K/mm3 (0.0-0.1); Basophils % (Auto) 1.1 % (0.0-1.8); Eosinophils # (Auto) 0.2 K/mm3 (0.0-0.4); Eosinophils % (Auto) 2.8 % (0.0-4.3); Hematocrit 25.5 % (35.5-45.6); Hemoglobin 8.2 gm/dl (11.8-15.2); Lymphocytes % (Auto) 11.7 % (13.4-35.0); Mean Corpuscular HGB Conc 32 % (32-34); Mean Corpuscular Volume 85 fl (84-94); Monocytes # (Auto) 1.2 K/mm3 (0.0-0.8); Monocytes % (Auto) 14.8 % (0.0-7.3); Platelet Count 198 K/mm3 (140-440); Red Blood Count 2.99 M/mm3 (3.65-5.03); Red Cell Distribution Width 15.8 % (13.2-15.2)
[2021-09-17 11:06] LABS: Calcium 8.1 mg/dL (8.4-10.2)
--- NOTE | 2021-09-17 11:27 | Progress Note ---
Assessment and Plan Assessment Severe renal failure secondary to obstructive uropathy Hyperkalemia Metabolic acidosis, now Alkalotic Uremia Acute Anemia Hypocalcemia/Hyperparathyroidsm Plan: Renal labs reviewed. Serum creatinine is 6.4 today, yesterday's serum creatinine was 8.6, non-oliguric, UOP 3150 ml S/P Hemodialysis yesterday for clearance mainly, No UF. Will hold HD as of now and monitor for renal recovery May have post-obstructive diuresis. Continue IV hydration with NS at 125 ml/hr Monitor K, Mg and Phos with close monitoring for hypotension Patient was initiated on hemodialysis on 09/10/21 due to severe renal failure coupled with severe Hyperkalemia and Acidosis 24 hour urine collection for creatinine clearance-in progress CT AP showed BL hydronephrosis and bladder scan was positive for urinary retention. Urology consulted and placed león and recommended Flomax and to call them for león catheter removal On Flomax 0.8 mg po daily On NS@ 75 ml/hr Hypocalcemia and Hyperparathyroidsm- on Calctriol Renally dose medications Avoid nephrotoxic agents Strict I&O's daily Obtain daily weights Assess dialysis needs daily Continue to monitor renal function closely Plan of care reviewed by Dr. Gregory Subjective Date of service: 09/17/21 Principal diagnosis: anemia, acute kidney failure Interval history: Patient seen lying in bed. Answered all questions. No family at bedside. Objective - Vital Signs Vital signs: Vital Signs - 12hr 09/16/21 09/17/21 09/17/21 23:59 06:10 09:59 Temperature 98.5 F 98.6 F Pulse Rate 97 H 93 H Respiratory 19 20 Rate Blood Pressure 139/82 144/83 O2 Sat by Pulse 97 99 96 Oximetry - General Appearance General appearance: well-developed, well-nourished EENT: ATNC, PERRL Neck: no JVD, supple Respiratory: Present: Decreased Breath Sounds Cardiology: S1S2 Gastrointestinal: normoactive bowel sounds Integumentary: warm and dry Neurologic: alert and oriented x3 Musculoskeletal: other (No edema) Psychiatric: cooperative - Lab 09/17/21 10:13 09/17/21 10:13 Most recent lab results ABG pH 7.100 pH Units (7.350-7.450) L* 09/09/21 21:00 ABG pCO2 20.0 mm Hg 09/09/21 21:00 ABG pO2 60.9 mm Hg (80.0-90.0) L 09/09/21 21:00 ABG HCO3 6.1 mmol/L (20.0-26.0) L 09/09/21 21:00 ABG O2 Saturation 81.1 % (95.0-99.0) L 09/09/21 21:00 Calcium 8.1 mg/dL (8.4-10.2) L D 09/17/21 10:13 Phosphorus 2.70 mg/dL (2.5-4.5) 09/16/21 05:23 Magnesium 1.60 mg/dL (1.7-2.3) L 09/17/21 08:00 Urine Creatinine 112.8 mg/dL (0.1-20.0) H 09/10/21 11:35 Urine Total Protein 201 mg/dL (5-11.8) H 09/10/21 11:35 Medications & Allergies - Medications Allergies/Adverse Reactions: Allergies No Known Allergies Allergy (Unverified 01/17/17 01:04) Home Medications: Home Medications Medication Instructions Recorded Confirmed Last Taken Type Acetaminophen/Codeine [Tylenol #3] 1 tab PO Q6H PRN #7 tab 01/17/17 09/14/21 Unknown Rx Ibuprofen [Motrin] 600 mg PO Q8H PRN #15 tablet 01/17/17 09/14/21 Unknown Rx methOCARBAMOL [Robaxin TAB] 500 mg PO Q6H PRN #15 tablet 01/17/17 09/14/21 Unknown Rx Active Medications: Generic Name Dose Route Start Last Admin Trade Name Dana PRN Reason Stop Dose Admin Acetaminophen 650 mg 09/09/21 20:24 Acetaminophen 325 Mg Tab PO Q4H PRN Pain MILD(1-3)/Fever >100.5/LOCO Amlodipine Besylate 10 mg 09/11/21 12:00 09/17/21 09:33 Amlodipine 10 Mg Tab PO 10 mg QDAY LENY Administration Calcitriol 0.5 mcg 09/14/21 19:00 09/17/21 09:33 Calcitriol 0.5 Mcg Cap PO 0.5 mcg QDAY LENY Administration Carvedilol 6.25 mg 09/12/21 22:00 09/17/21 09:33 Carvedilol 6.25 Mg Tab PO 6.25 mg BID ELNY Administration Epoetin Alex-epbx 8,000 unit 09/16/21 16:00 09/16/21 14:15 Epoetin Alex-Epbx 10,000 Unit/1 Ml Vial SUB-Q 8,000 unit MoWeFr LENY Administration Hydralazine HCl 10 mg 09/15/21 07:29 Hydralazine 20 Mg/1 Ml Inj IV Q4H PRN Hypertension Hydralazine HCl 50 mg 09/15/21 08:00 09/17/21 08:12 Hydralazine 25 Mg Tab PO 50 mg Q8H LENY Administration Sodium Chloride 1,000 mls @ 125 mls/hr 09/11/21 11:45 09/16/21 21:37 Nacl 0.9% 1000 Ml IV 75 mls/hr DIRECT LENY Administration Sodium Chloride 100 mls @ 999 mls/hr 09/14/21 09:58 Nacl 0.9% IV MARTI PRN Hypotension Ferric Sodium Gluconate 110 mls @ 100 mls/hr 09/16/21 14:00 09/17/21 09:32 Complex 125 mg/ Sodium IV 09/18/21 11:05 100 mls/hr Chloride DAILY LENY Administration Labetalol HCl 10 mg 09/11/21 11:09 Labetalol 20 Mg/4 Ml Inj IV Q4HR PRN sbp>160 Metoclopramide HCl 5 mg 09/14/21 09:00 Metoclopramide 10 Mg/2 Ml Inj IV Q8H PRN Nausea And Vomiting Morphine Sulfate 2 mg 09/09/21 20:24 09/10/21 06:00 Morphine 2 Mg/1 Ml Inj IV 2 mg Q4H PRN Administration Pain, Moderate (4-6) Ondansetron HCl 4 mg 09/09/21 20:24 09/11/21 03:43 Ondansetron 4 Mg/2 Ml Inj IV 4 mg Q3H PRN Administration Nausea And Vomiting Pantoprazole Sodium 40 mg 09/11/21 16:30 09/17/21 08:12 Pantoprazole 40 Mg Tab PO 40 mg BIDAC LENY Administration Sodium Chloride 10 ml 09/09/21 22:00 09/17/21 09:35 Sodium Chloride 0.9% 10 Ml Flush Syringe IV 10 ml BID LENY Administration Sodium Chloride 10 ml 09/09/21 20:24 Sodium Chloride 0.9% 10 Ml Flush Syringe IV PRN PRN LINE FLUSH Tamsulosin HCl 0.8 mg 09/11/21 12:00 09/17/21 09:33 Tamsulosin 0.4 Mg Cap PO 0.8 mg QDAY LENY Administration
--- NOTE | 2021-09-17 14:07 | Hem/Onc Progress Note ---
Subjective Date of service: 09/17/21 Interval history: Heme progress note Seen via televisit CPT 79178 Dx Anemia This is a 61yo male who presents to [facility] ED with complaints of progressive shortness of breath and nose bleeds. Past medical history of chronic kidney disease. Patient is a very poor historian. In the emergency room patient is found to have hemoglobin of 4.8 and creatinine 48.4, lactic acid 2.80. Emergent HD initated, followed by nephrology. Received 4 units RBC transfusions this admission. Hematology following for anemia. DATA REVIEWED BELOW LDH 312 retic 2.51% Patient examined at bedside, in no acute distress. Denies past medical history. Denies anemia history. Reports insidious onset of requiring emergent HD and severe anemia. IMP: HUS, Hemolytic uremic syndrome picture S/p multiple RBC transfusions Started on HD PLAN: Labs to include Carole, [id number] test , If [id number] >10% then confidently say HUS If HUS, would benefit from Soliris and supportive management with HD and transfusions Follow hemoglobin electrophoresis, spep Continue Retacrit 8,000u 3 times a week Continue Ferrlicet 125mg due to recent bleed Tranfuse 1 unit RBC whenever hct <23 Needs outpatient [place] heme referral Laboratory Last Values WBC 8.2 K/mm3 (4.5-11.0) 09/17/21 10:13 Hgb 8.2 gm/dl (11.8-15.2) L 09/17/21 10:13 Hct 25.5 % (35.5-45.6) L 09/17/21 10:13 MCV 85 fl (84-94) 09/17/21 10:13 Plt Count 198 K/mm3 (140-440) 09/17/21 10:13 PT 16.6 Sec. (12.2-14.9) H 09/09/21 18:53 INR 1.20 (0.87-1.13) H 09/09/21 18:53 D-Dimer 2203.38 ng/mlDDU (0-234) H 09/09/21 18:53 Creatinine 6.4 mg/dL (0.8-1.3) H 09/17/21 10:13 Lactate Dehydrogenase 312 units/L (91-180) H 09/17/21 10:13 Hepatitis A IgM Ab Nonreactive (NonReactive) 09/09/21 20:55 Hep Bs Antigen Non-reactive (Negative) 09/09/21 20:55 Hep B Core IgM Ab Non-reactive (NonReactive) 09/09/21 20:55 Hepatitis C Antibody Non-reactive (NonReactive) 09/09/21 20:55 Blood Type O POSITIVE 09/15/21 07:50 Antibody Screen Negative 09/15/21 07:50 Crossmatch See Detail 09/15/21 07:50 Objective - Constitutional Vitals: Last Vital Signs Temp 98.6 F 09/17/21 06:10 Pulse 93 H 09/17/21 06:10 Resp 20 09/17/21 06:10 BP 144/83 09/17/21 06:10 Pulse Ox 96 09/17/21 09:59 - Labs Lab Results: Laboratory Results - last 24 hr 09/17/21 09/17/21 09/17/21 08:00 10:13 10:13 WBC 8.2 RBC 2.99 L Hgb 8.2 L Hct 25.5 L MCV 85 MCH 27 L MCHC 32 RDW 15.8 H Plt Count 198 Lymph % (Auto) 11.7 L [place] % (Auto) 14.8 H Eos % (Auto) 2.8 Baso % (Auto) 1.1 Lymph # (Auto) 1.0 L [place] # (Auto) 1.2 H Eos # (Auto) 0.2 Baso # (Auto) 0.1 Seg Neutrophils % 69.6 Seg Neutrophils # 5.7 Percent Retic 2.51 Sodium 138 Potassium 4.4 D Chloride 101.2 Carbon Dioxide 25 Anion Gap 16 BUN 35 H Creatinine 6.4 H Estimated GFR 11 BUN/Creatinine Ratio 5 Glucose 140 H Calcium 8.1 L D Magnesium 1.60 L Lactate Dehydrogenase 09/17/21 10:13 WBC RBC Hgb Hct MCV MCH MCHC RDW Plt Count Lymph % (Auto) [place] % (Auto) Eos % (Auto) Baso % (Auto) Lymph # (Auto) [place] # (Auto) Eos # (Auto) Baso # (Auto) Seg Neutrophils % Seg Neutrophils # Percent Retic Sodium Potassium Chloride Carbon Dioxide Anion Gap BUN Creatinine Estimated GFR BUN/Creatinine Ratio Glucose Calcium Magnesium Lactate Dehydrogenase 312 H Medications & Allergies - Medications Allergies/Adverse Reactions: Allergies No Known Allergies Allergy (Unverified 01/17/17 01:04) Home Medications: Home Medications Medication Instructions Recorded Confirmed Last Taken Type Acetaminophen/Codeine [Tylenol #3] 1 tab PO Q6H PRN #7 tab 01/17/17 09/14/21 Unknown Rx Ibuprofen [Motrin] 600 mg PO Q8H PRN #15 tablet 01/17/17 09/14/21 Unknown Rx methOCARBAMOL [Robaxin TAB] 500 mg PO Q6H PRN #15 tablet 01/17/17 09/14/21 Unknown Rx Active Medications: Generic Name Dose Route Start Last Admin Trade Name Freq PRN Reason Stop Dose Admin Acetaminophen 650 mg 09/09/21 20:24 Acetaminophen 325 Mg Tab PO Q4H PRN Pain MILD(1-3)/Fever >100.5/LOCO Amlodipine Besylate 10 mg 09/11/21 12:00 09/17/21 09:33 Amlodipine 10 Mg Tab PO 10 mg QDAY LENY Administration Calcitriol 0.5 mcg 09/14/21 19:00 09/17/21 09:33 Calcitriol 0.5 Mcg Cap PO 0.5 mcg QDAY LENY Administration Carvedilol 6.25 mg 09/12/21 22:00 09/17/21 09:33 Carvedilol 6.25 Mg Tab PO 6.25 mg BID LENY Administration Epoetin Alex-epbx 8,000 unit 09/16/21 16:00 09/16/21 14:15 Epoetin Alex-Epbx 10,000 Unit/1 Ml Vial SUB-Q 8,000 unit MoWeFr LENY Administration Hydralazine HCl 10 mg 09/15/21 07:29 Hydralazine 20 Mg/1 Ml Inj IV Q4H PRN Hypertension Hydralazine HCl 50 mg 09/15/21 08:00 09/17/21 08:12 Hydralazine 25 Mg Tab PO 50 mg Q8H LENY Administration Sodium Chloride 1,000 mls @ 125 mls/hr 09/11/21 11:45 09/16/21 21:37 Nacl 0.9% 1000 Ml IV 75 mls/hr DIRECT LENY Administration Sodium Chloride 100 mls @ 999 mls/hr 09/14/21 09:58 Nacl 0.9% IV MARTI PRN Hypotension Ferric Sodium Gluconate 110 mls @ 100 mls/hr 09/16/21 14:00 09/17/21 09:32 Complex 125 mg/ Sodium IV 09/18/21 11:05 100 mls/hr Chloride DAILY LENY Administration Labetalol HCl 10 mg 09/11/21 11:09 Labetalol 20 Mg/4 Ml Inj IV Q4HR PRN sbp>160 Metoclopramide HCl 5 mg 09/14/21 09:00 Metoclopramide 10 Mg/2 Ml Inj IV Q8H PRN Nausea And Vomiting Morphine Sulfate 2 mg 09/09/21 20:24 09/10/21 06:00 Morphine 2 Mg/1 Ml Inj IV 2 mg Q4H PRN Administration Pain, Moderate (4-6) Ondansetron HCl 4 mg 09/09/21 20:24 09/11/21 03:43 Ondansetron 4 Mg/2 Ml Inj IV 4 mg Q3H PRN Administration Nausea And Vomiting Pantoprazole Sodium 40 mg 09/11/21 16:30 09/17/21 08:12 Pantoprazole 40 Mg Tab PO 40 mg BIDAC LENY Administration Sodium Chloride 10 ml 09/09/21 22:00 09/17/21 09:35 Sodium Chloride 0.9% 10 Ml Flush Syringe IV 10 ml BID LENY Administration Sodium Chloride 10 ml 09/09/21 20:24 Sodium Chloride 0.9% 10 Ml Flush Syringe IV PRN PRN LINE FLUSH Tamsulosin HCl 0.8 mg 09/11/21 12:00 09/17/21 09:33 Tamsulosin 0.4 Mg Cap PO 0.8 mg QDAY LENY Administration
[2021-09-17] MEDS: SODIUM CHLORIDE 0.9% 1000 ML 1,000 ML IV SCH ×2 (16:33→23:24)
[2021-09-17 17:54] LABS: Creatinine,Urine 18.3 mg/dL (0.1-20.0)
[2021-09-18] MEDS: SODIUM CHLORIDE 0.9% 1000 ML 1,000 ML IV SCH ×2 (05:22→23:48)
[2021-09-18 05:34] LABS: Hematocrit 22.7 % (35.5-45.6); Hemoglobin 7.6 gm/dl (11.8-15.2); Mean Corpuscular HGB Conc 34 % (32-34); Mean Corpuscular Volume 85 fl (84-94); Platelet Count 214 K/mm3 (140-440); Red Blood Count 2.69 M/mm3 (3.65-5.03); Red Cell Distribution Width 15.7 % (13.2-15.2)
[2021-09-18 05:51] LABS: Calcium 7.7 mg/dL (8.4-10.2)
[2021-09-18 06:42] LABS: Total Cells Counted 100
[2021-09-18 06:43] LABS: Basophils % (Manual) 0 % (0.0-1.8); Toxic Granulation Rare
[2021-09-18 06:44] LABS: Macrocytosis Few
[2021-09-18 06:46] LABS: Platelet Estimate Consistent w Auto
[2021-09-18] MEDS: PANTOPRAZOLE 40 MG TAB PO SCH ×2 (10:12→18:45)
[2021-09-18] MEDS: carvediloL 6.25 MG TAB PO SCH ×2 (10:12→22:26)
[2021-09-18] MEDS: TAMSULOSIN 0.4 MG CAP PO SCH (10:13)
[2021-09-18] MEDS: CALCITRIOL 0.5 MCG CAP PO SCH (10:13)
[2021-09-18] MEDS: amLODIPine 10 MG TAB PO SCH (10:13)
[2021-09-18] MEDS: hydrALAZINE 25 MG TAB PO SCH ×2 (10:16→18:45)
--- NOTE | 2021-09-18 10:33 | Progress Note ---
Assessment and Plan Assessment and plan: 61 years old male with past medical history of chronic kidney disease was brought to the hospital because of progressive shortness of breath as stated with vomiting and bleeding from nose for 1 day. Patient is a very poor historian. In the emergency room patient is found to have hemoglobin of 4.8 and hematocrit 14.9 also patient is found to have potassium of 7.1, bicarb 4, anion gap 54, BUN to 38 and creatinine 48.4, lactic acid 2.80. ABG shows pH 7.100, PCO2 20+0, PO2 60.9, bicarb 6.1. The patient was admitted to critical care and underwent emergent hemodialysis. Acute kidney injury due to post renal obstruction Metabolic Acidosis (resolving) Lactic Acidosis 2.8-> 2.1 (resolved) Acute heart failure with preserved ejection fraction (ef 45-50%) Hyperkalemia (resolved) Hypokalemia Uremia (resolved) Urinary retention (resolving) Hypocalcemia Prostateamegaly - psa elevated to 5.18 - monitor electrolytes on serial renal profile - strict I/O, close UOP monitoring - avoid nephrotoxins, renally adjust medications Acute hypoxic respiratory failure (resolved) - O2 sat as low as 56% on admission, currently on room air satting greater than 92% - cxr: no acute findings. - pulmonology following Acute metabolic encephalopathy (resolved) - likely due to uremia - improving hypertension - elevated BP - coreg dose increased, hold linsey-i due to renal fx. Anemia s/p prbcs (stable) likely secondary epistatixis and renal insufficiency. R/o hemoglobinopathy, hemolytic anemia Unable to evaluate iron studies post RBC transfusions Epistaxis (appears resolved) - hx of recurrent epistaxis per son, patient had increased uncontrolled bleeding for 1 day. No prior hx of GI bleed or reported blood in stool. Uremia could have precipitated bleed. - Hgb: 4.8 on admission, s/p 4 units prbc, now 8's - transfuse prn Hgb< 7. - GI consulted due to concern for GI bleed on admission - protonix 40 mg po bid - unclear if this is truly GI source Type II myocardial infarction (resolved) - supply demand from anemia in the setting TIFFANIE - serial troponins ordered, downtrending. -cardiology following, no intervention at this time. EtOH use disorder person patient stopped a few weeks ago. Sepsis ruled out, doubt infectious etiology. Hospital Course: 09/10: Improved on bedside encounter. Urology placed león catheter. Plan for nephrology to complete HD today. Hgb improved to 8.3, suspect anemia is purely from epistaxis, unclear if there was truly was a GI source. Will continue to monitor for other source of bleed. GI consulted, will follow recommendations. 09/11: hemoglobin stable. patient on encounter states he had recurrent epistaxis bleed leading up to hospitalization. Hgb stable this AM. Renal indices improved on bmp. Urine output 1000 cc yesterday. Troponin downtrending. D/w Dr. Juan A Martin, will d/c protonix IV, start on protonix 40 mg po bid. Transfer to floor bed. 09/12: Doing well on encounter today. on room air saturating 98%. Renal indices improving. León output approx: 2500 cc yday. [place] tingued urine noted, clearing up. hemoglobin 8.1, VSS. No plan for HD today per nephrology. We will continue to follow along for hemodialysis plan moving forward and nephrology final impression on renal prognosis. Anticipate d/c in next 24-48 hrs depending on this. Patient will likely need to be discharged with León catheter and in structions to follow-up with urology as an outpatient. 09/13: Patient remains clinically stable. Renal function appears to slightly worsened today. Nephrology noted the slight worsening. Will reevaluate in a.m. Patient undergoing 24-hour urine collection. From respiratory standpoint patient is stable acute respiratory failure secondary to fluid overload has resolved. Plan discussed with the patient in detail he verbalized understanding. 15 minutes counseling provided to the patient about continued cessation of EtOH use on lifestyle preventive care measures. We will monitor potassium level and slight of renal failure. 09/14: Patient seen and examined this morning hypokalemia persist also hypocalcemia we will replace both potassium and calcium. Patient advised by search engine optimizer that he will be having dialysis today as creatinine is gradually creeping back up to 11.2 today. León remains in place with good urine output. Patient understands he will have to go home with a León and follow-up with urologist. Based on discussion with nephrology will determine if her permacath needs to be placed prior to discharge. I have also updated the and answered all questions. At this time awaiting renal recovery if possible. We will continue to monitor H&H 09/15: Patient seen and examined, no new complaints, review of labs shows improvement of renal function following HD yesterday, however HGB still decreasing. Will order a unit of PRBC and Hematology consultation. Further management and discharge plan depends on renal recovery and Nephrology input. Patient updated. 09/16: Patient seen and examined this morning. some response to blood transfusion noted. Reached out to nephrology to see if we should start planning for outpatient dialysis for this patient with the upward trend of creatinine following 2 days after dialysis. Appears the patient will get hemodialyzed again today. Overall concern for this patient is that he is got multiple issues pointing towards a poor renal resolution without dialysis outpatient. Will await nephrology input. He has had 4 units of packed red blood cell. Hemoglobin is at 7.7 09/17: Nephrology to hold hemodialysis today and monitor for renal recovery off hemodialysis. IV fluid increased. Follow-up 24-hour urine collection. Patient was initiated on hemodialysis on 09/10/21 due to severe renal failure coupled with severe Hyperkalemia and Acidosis. CT AP showed BL hydronephrosis and bladder scan was positive for urinary retention. Urology consulted and placed león and recommended Flomax and to call them for león catheter removal. Continue on Flomax 0.8 mg daily. Monitor post obstructive diuresis closely. Renally dose medications. Avoid nephrotoxic agents. Strict I&O's daily. Obtain daily weights. Assess dialysis needs daily. Follow-up labs LDH, retic, hemoglobin electrophoresis, spep. Hematology started Ferrlecit. Transfuse for hemoglobin less than 7 09/18: Hematology suspects hemolytic uremic syndrome. Follow-up labs for Carole, [id number] test , If [id number] >10% then confidently say HUS. Also follow- up hemoglobin electrophoresis and SPEP. Continue Retacrit 3 times a week and Ferrlecit. Patient will need outpatient [facility]ology referral. Nephrology held HD on 09/17 to monitor for renal recovery without hemodialysis. Awaiting final decision on HD needs on an outpatient basis. Discharge planners will contact Brian and Michael to discuss james care, as patient is self-pay, at this time. History Interval history: No new issues overnight Hospitalist Physical - Constitutional Vitals: Temp Pulse Resp BP Pulse Ox 97.8 F 99 H 18 141/77 95 09/18/21 05:31 09/18/21 10:16 09/18/21 05:31 09/18/21 10:16 09/18/21 05:35 General appearance: Present: no acute distress - EENT Eyes: Present: PERRL, EOM intact ENT: hearing intact, clear oral mucosa, dentition normal - Neck Neck: Present: supple, normal ROM - Respiratory Respiratory effort: normal Respiratory: bilateral: CTA - Cardiovascular Rhythm: regular Heart Sounds: Present: S1 & S2. Absent: gallop, rub - Extremities Extremities: no ischemia, No edema, Full ROM - Abdominal General gastrointestinal: soft, non-tender, non-distended, normal bowel sounds - Integumentary Integumentary: Present: clear, warm, dry - Neurologic Neurologic: CNII-XII intact, moves all extremities HEART Score - HEART Score Troponin: Troponin T 0.158 ng/mL (0.00-0.029) H* 09/10/21 Unknown Results - Labs CBC & Chem 7: 09/18/21 05:08 09/18/21 05:08 Labs: Laboratory Last Values WBC 8.9 K/mm3 (4.5-11.0) 09/18/21 05:08 RBC 2.69 M/mm3 (3.65-5.03) L 09/18/21 05:08 Hgb 7.6 gm/dl (11.8-15.2) L 09/18/21 05:08 Hct 22.7 % (35.5-45.6) L 09/18/21 05:08 MCV 85 fl (84-94) 09/18/21 05:08 MCH 28 pg (28-32) 09/18/21 05:08 MCHC 34 % (32-34) 09/18/21 05:08 RDW 15.7 % (13.2-15.2) H 09/18/21 05:08 Plt Count 214 K/mm3 (140-440) 09/18/21 05:08 Lymph % (Auto) 11.7 % (13.4-35.0) L 09/17/21 10:13 Reynolds % (Auto) Laboratory Aide 09/18/21 05:08 Eos % (Auto) 2.8 % (0.0-4.3) 09/17/21 10:13 Baso % (Auto) 1.1 % (0.0-1.8) 09/17/21 10:13 Lymph # (Auto) 1.0 K/mm3 (1.2-5.4) L 09/17/21 10:13 Reynolds # (Auto) 1.2 K/mm3 (0.0-0.8) H 09/17/21 10:13 Eos # (Auto) 0.2 K/mm3 (0.0-0.4) 09/17/21 10:13 Baso # (Auto) 0.1 K/mm3 (0.0-0.1) 09/17/21 10:13 Add Manual Diff Complete 09/18/21 05:08 Total Counted 100 09/18/21 05:08 Seg Neutrophils % 69.6 % (40.0-70.0) 09/17/21 10:13 Seg Neuts % (Manual) 73.0 % (40.0-70.0) H 09/18/21 05:08 Band Neutrophils % 0 % 09/18/21 05:08 Lymphocytes % (Manual) 14.0 % (13.4-35.0) 09/18/21 05:08 Reactive Lymphs % (Man) 0 % 09/18/21 05:08 Monocytes % (Manual) 10.0 % (0.0-7.3) H 09/18/21 05:08 Eosinophils % (Manual) 3.0 % (0.0-4.3) 09/18/21 05:08 Basophils % (Manual) 0 % (0.0-1.8) 09/18/21 05:08 Metamyelocytes % 0 % 09/18/21 05:08 Myelocytes % 0 % 09/18/21 05:08 Promyelocytes % 0 % 09/18/21 05:08 Blast Cells % 0 % 09/18/21 05:08 Nucleated RBC % Not Reportable 09/18/21 05:08 Seg Neutrophils # 5.7 K/mm3 (1.8-7.7) 09/17/21 10:13 Seg Neutrophils # Man 6.5 K/mm3 (1.8-7.7) 09/18/21 05:08 Band Neutrophils # 0.0 K/mm3 09/18/21 05:08 Lymphocytes # (Manual) 1.2 K/mm3 (1.2-5.4) 05/11/22 05:08 Abs React Lymphs (Man) 0.0 K/mm3 09/18/21 05:08 Monocytes # (Manual) 0.9 K/mm3 (0.0-0.8) H 09/18/21 05:08 Eosinophils # (Manual) 0.3 K/mm3 (0.0-0.4) 09/18/21 05:08 Basophils # (Manual) 0.0 K/mm3 (0.0-0.1) 09/18/21 05:08 Metamyelocytes # 0.0 K/mm3 09/18/21 05:08 Myelocytes # 0.0 K/mm3 09/18/21 05:08 Promyelocytes # 0.0 K/mm3 09/18/21 05:08 Blast Cells # 0.0 K/mm3 09/18/21 05:08 WBC Morphology Not Reportable 09/18/21 05:08 Hypersegmented Neuts Not Reportable 09/18/21 05:08 Hyposegmented Neuts Not Reportable 09/18/21 05:08 Hypogranular Neuts Not Reportable 09/18/21 05:08 Smudge Cells Not Reportable 09/18/21 05:08 Toxic Granulation Rare 09/18/21 05:08 Toxic Vacuolation Not Reportable 09/18/21 05:08 Dohle Bodies Not Reportable 09/18/21 05:08 Pelger-Huet Anomaly Not Reportable 09/18/21 05:08 Francisco Javier Rods Not Reportable 09/18/21 05:08 Platelet Estimate Consistent w auto 09/18/21 05:08 Clumped Platelets Not Reportable 09/18/21 05:08 Plt Clumps, EDTA Not Reportable 09/18/21 05:08 Large Platelets Not Reportable 09/18/21 05:08 Giant Platelets Not Reportable 09/18/21 05:08 Platelet Satelliting Not Reportable 09/18/21 05:08 Plt Morphology Comment Not Reportable 09/18/21 05:08 RBC Morphology Not Reportable 09/18/21 05:08 Dimorphic RBCs Not Reportable 09/18/21 05:08 Polychromasia Few 09/18/21 05:08 Hypochromasia Not Reportable 09/18/21 05:08 Poikilocytosis Not Reportable 09/18/21 05:08 Anisocytosis Not Reportable 09/18/21 05:08 Microcytosis Not Reportable 09/18/21 05:08 Macrocytosis Few 09/18/21 05:08 Spherocytes Not Reportable 09/18/21 05:08 Pappenheimer Bodies Not Reportable 09/18/21 05:08 Sickle Cells Not Reportable 09/18/21 05:08 Target Cells Not Reportable 09/18/21 05:08 Tear Drop Cells Not Reportable 09/18/21 05:08 Ovalocytes Not Reportable 09/18/21 05:08 Stomatocytes Rare 09/10/21 Unknown Helmet Cells Not Reportable 09/18/21 05:08 Samaniego-Waldron Bodies Not Reportable 09/18/21 05:08 Arverne Rings Not Reportable 09/18/21 05:08 Vika Cells Not Reportable 09/18/21 05:08 Bite Cells Not Reportable 09/18/21 05:08 Crenated Cell Not Reportable 09/18/21 05:08 Elliptocytes Not Reportable 09/18/21 05:08 Acanthocytes (Spur) Not Reportable 09/18/21 05:08 Rouleaux Not Reportable 09/18/21 05:08 Hemoglobin C Crystals Not Reportable 09/18/21 05:08 Schistocytes Not Reportable 09/18/21 05:08 Malaria parasites Not Reportable 09/18/21 05:08 Percent Retic 2.51 % (0.78-2.58) 09/17/21 10:13 Jose Bodies Not Reportable 09/18/21 05:08 Hem Pathologist Commnt No 09/18/21 05:08 PT 16.6 Sec. (12.2-14.9) H 09/09/21 18:53 INR 1.20 (0.87-1.13) H 09/09/21 18:53 D-Dimer 2203.38 ng/mlDDU (0-234) H 09/09/21 18:53 ABG pH 7.100 pH Units (7.350-7.450) L* 09/09/21 21:00 ABG pCO2 20.0 mm Hg 09/09/21 21:00 ABG pO2 60.9 mm Hg (80.0-90.0) L 09/09/21 21:00 ABG HCO3 6.1 mmol/L (20.0-26.0) L 09/09/21 21:00 ABG O2 Saturation 81.1 % (95.0-99.0) L 09/09/21 21:00 ABG O2 Content 4.8 (0.0-44) 09/09/21 21:00 ABG Base Excess -21.5 mmol/L (-2.0-3.0) L 09/09/21 21:00 ABG Hemoglobin 5.0 gm/dl (14.0-18.0) L 09/09/21 21:00 ABG Carboxyhemoglobin 1.3 % (0.0-5.0) 09/09/21 21:00 ABG Methemoglobin 0.5 % (0.0-1.5) 09/09/21 21:00 Oxyhemoglobin 79.7 % (95.0-99.0) L 09/09/21 21:00 FiO2 28 % 09/09/21 21:00 Sodium 137 mmol/L (137-145) 09/18/21 05:08 Potassium 4.4 mmol/L (3.6-5.0) 09/18/21 05:08 Chloride 103.2 mmol/L (98-107) 09/18/21 05:08 Carbon Dioxide 22 mmol/L (22-30) 09/18/21 05:08 Anion Gap 16 mmol/L 09/18/21 05:08 BUN 47 mg/dL (9-20) H 09/18/21 05:08 Creatinine 7.8 mg/dL (0.8-1.3) H 09/18/21 05:08 Estimated GFR 9 ml/min 09/18/21 05:08 BUN/Creatinine Ratio 6 % 09/18/21 05:08 Glucose 86 mg/dL (75-100) 09/18/21 05:08 POC Glucose 147 mg/dL (70-105) H 09/10/21 07:35 Lactic Acid 2.10 mmol/L (0.7-2.0) H* 09/09/21 20:49 Calcium 7.7 mg/dL (8.4-10.2) L 09/18/21 05:08 Phosphorus 2.70 mg/dL (2.5-4.5) 09/16/21 05:23 Magnesium 1.60 mg/dL (1.7-2.3) L 09/17/21 08:00 Total Bilirubin 0.30 mg/dL (0.1-1.2) 09/09/21 18:53 AST 17 units/L (5-40) 09/09/21 18:53 ALT 19 units/L (7-56) 09/09/21 18:53 Alkaline Phosphatase 57 units/L (35-129) 09/09/21 18:53 Ammonia 39.0 umol/L (25-60) 09/09/21 19:02 Lactate Dehydrogenase 312 units/L (91-180) H 09/17/21 10:13 Total Creatine Kinase 1530 units/L (55-170) H 09/10/21 Unknown CK-MB (CK-2) 21.4 ng/mL (0.0-4.0) H 09/09/21 18:53 CK-MB (CK-2) Rel Index 1.2 (0-4) 09/09/21 18:53 Troponin T 0.158 ng/mL (0.00-0.029) H* 09/10/21 Unknown C-Reactive Protein 1.50 mg/dL (0.00-1.30) H 09/09/21 18:53 NT-Pro-B Natriuret Pep 6011 pg/mL (0-900) H 09/09/21 18:53 Total Protein 7.4 g/dL (6.3-8.2) 09/09/21 18:53 Albumin 4.2 g/dL (3.9-5) 09/09/21 18:53 Albumin/Globulin Ratio 1.3 % 09/09/21 18:53 Triglycerides 177 mg/dL (2-149) H 09/09/21 18:53 Cholesterol 170 mg/dL (50-199) 09/09/21 18:53 LDL Cholesterol Direct 107 mg/dL (50-130) 09/09/21 18:53 HDL Cholesterol 28 mg/dL (40-59) L 09/09/21 18:53 Cholesterol/HDL Ratio 6.07 % 09/09/21 18:53 Lipase 1198 units/L (13-60) H 09/09/21 18:53 Prostate Specific Ag 5.18 ng/mL (0.00-4.00) H 09/10/21 Unknown PTH Intact 259.3 pg/mL (15-65) H 09/14/21 23:27 Urine Color Straw (Yellow) 09/09/21 11:35 Urine Turbidity Clear (Clear) 09/09/21 11:35 Urine pH 6.0 (5.0-7.0) 09/09/21 11:35 Ur Specific [place] 1.011 (1.003-1.030) 09/09/21 11:35 Urine Protein 100 mg/dl mg/dL (Negative) 09/09/21 11:35 Urine Glucose (UA) 50 mg/dL (Negative) 09/09/21 11:35 Urine Ketones Neg mg/dL (Negative) 09/09/21 11:35 Urine Blood Mod (Negative) 09/09/21 11:35 Urine Nitrite Neg (Negative) 09/09/21 11:35 Urine Bilirubin Neg (Negative) 09/09/21 11:35 Urine Urobilinogen < 2.0 mg/dL (<2.0) 09/09/21 11:35 Ur Leukocyte Esterase Neg (Negative) 09/09/21 11:35 Urine WBC (Auto) 2.0 /HPF (0.0-6.0) 09/09/21 11:35 Urine RBC (Auto) 11.0 /HPF (0.0-6.0) 09/09/21 11:35 Urine Total Volume 3750 ml 09/17/21 10:13 Urine Creatinine 18.3 mg/dL (0.1-20.0) 09/17/21 10:13 Height (in) 68.0 inches 09/17/21 10:13 Weight (lb) 130.0 lbs 09/17/21 10:13 Creatinine Clearance 7 09/17/21 10:13 Protein/Creatinin Ratio 1.78 09/10/21 11:35 Urine Total Protein 201 mg/dL (5-11.8) H 09/10/21 11:35 Urine Opiates Screen Presumptive negative 09/10/21 11:35 Urine Methadone Screen Presumptive negative 09/10/21 11:35 Ur Barbiturates Screen Presumptive negative 09/10/21 11:35 Ur Phencyclidine Scrn Presumptive negative 09/10/21 11:35 Ur Amphetamines Screen Presumptive negative 09/10/21 11:35 U Benzodiazepines Scrn Presumptive negative 09/10/21 11:35 Urine Cocaine Screen Presumptive negative 09/10/21 11:35 U Marijuana (THC) Screen Presumptive negative 09/10/21 11:35 Drugs of Abuse Note Disclamer 09/10/21 11:35 Plasma/Serum Alcohol < 0.01 % (0-0.07) 09/10/21 11:35 Hepatitis A IgM Ab Nonreactive (NonReactive) 09/09/21 20:55 Hep Bs Antigen Non-reactive (Negative) 09/09/21 20:55 Hep B Core IgM Ab Non-reactive (NonReactive) 09/09/21 20:55 Hepatitis C Antibody Non-reactive (NonReactive) 09/09/21 20:55 Blood Type O POSITIVE 09/15/21 07:50 Antibody Screen Negative 09/15/21 07:50 Direct Antiglob Test Negative 09/18/21 05:08 OMID, Poly Interpret Negative 09/18/21 05:08 Crossmatch See Detail 09/15/21 07:50 León/IV: Voiding Method Indwelling Catheter Active Medications - Current Medications Current Medications: Generic Name Dose Route Start Last Admin Trade Name Freq PRN Reason Stop Dose Admin Acetaminophen 650 mg 09/09/21 20:24 Acetaminophen 325 Mg Tab PO Q4H PRN Pain MILD(1-3)/Fever >100.5/LOCO Amlodipine Besylate 10 mg 09/11/21 12:00 09/18/21 10:13 Amlodipine 10 Mg Tab PO 10 mg QDAY LENY Administration Calcitriol 0.5 mcg 09/14/21 19:00 09/18/21 10:13 Calcitriol 0.5 Mcg Cap PO 0.5 mcg QDAY LENY Administration Carvedilol 6.25 mg 09/12/21 22:00 09/18/21 10:12 Carvedilol 6.25 Mg Tab PO 6.25 mg BID LENY Administration Epoetin Alex-epbx 8,000 unit 09/16/21 16:00 09/16/21 14:15 Epoetin Alex-Epbx 10,000 Unit/1 Ml Vial SUB-Q 8,000 unit MoWeFr LENY Administration Hydralazine HCl 10 mg 09/15/21 07:29 Hydralazine 20 Mg/1 Ml Inj IV Q4H PRN Hypertension Hydralazine HCl 50 mg 09/15/21 08:00 09/18/21 10:16 Hydralazine 25 Mg Tab PO 50 mg Q8H LENY Administration Sodium Chloride 1,000 mls @ 125 mls/hr 09/11/21 11:45 09/18/21 05:22 Nacl 0.9% 1000 Ml IV 75 mls/hr DIRECT LENY Administration Sodium Chloride 100 mls @ 999 mls/hr 09/14/21 09:58 Nacl 0.9% IV MARTI PRN Hypotension Ferric Sodium Gluconate 110 mls @ 100 mls/hr 09/16/21 14:00 09/17/21 09:32 Complex 125 mg/ Sodium IV 09/18/21 11:05 100 mls/hr Chloride DAILY LENY Administration Labetalol HCl 10 mg 09/11/21 11:09 Labetalol 20 Mg/4 Ml Inj IV Q4HR PRN sbp>160 Metoclopramide HCl 5 mg 09/14/21 09:00 Metoclopramide 10 Mg/2 Ml Inj IV Q8H PRN Nausea And Vomiting Morphine Sulfate 2 mg 09/09/21 20:24 09/10/21 06:00 Morphine 2 Mg/1 Ml Inj IV 2 mg Q4H PRN Administration Pain, Moderate (4-6) Ondansetron HCl 4 mg 09/09/21 20:24 09/11/21 03:43 Ondansetron 4 Mg/2 Ml Inj IV 4 mg Q3H PRN Administration Nausea And Vomiting Pantoprazole Sodium 40 mg 09/11/21 16:30 09/18/21 10:12 Pantoprazole 40 Mg Tab PO 40 mg BIDAC LENY Administration Sodium Chloride 10 ml 09/09/21 22:00 09/18/21 10:17 Sodium Chloride 0.9% 10 Ml Flush Syringe IV 10 ml BID LENY Administration Sodium Chloride 10 ml 09/09/21 20:24 Sodium Chloride 0.9% 10 Ml Flush Syringe IV PRN PRN LINE FLUSH Tamsulosin HCl 0.8 mg 09/11/21 12:00 09/18/21 10:13 Tamsulosin 0.4 Mg Cap PO 0.8 mg QDAY LENY Administration Nutrition/Malnutrition Assess - Dietary Evaluation Nutrition/Malnutrition Findings: Nutrition Notes Start: 09/10/21 15:32 Freq: Status: Active Protocol: Document 09/13/21 17:41 VANESSA (Rec: 09/13/21 17:53 VANESSA [id number]) Nutrition Notes Initial or Follow up Brief Note Current Diagnosis CKD(stage I-IV),Hypertension Other Pertinent Diagnosis ARF/CKD, Anuria, Epistaxis, Anemia, STEMI II, Acidosis, SOB, EtOH Abuse... Current Diet Cardiac -Renal- Diet (since L 09/11), D Suppl (since B 09/14 ). Height 5 ft 8 in Weight 58.967 kg [place] Body Weight (kg) 70.00 BMI 19.8 Weight change and time frame No body weight change reported in 3 days. Weight Status Appropriate Subjective/Other Information RD consult for routine F/U on Dietary Advancement. Pt now on PO diet. No reports available on Pt's PO intake of meals at the time, will assess at F/U. Pt on Room Air, O2 saturation @ 99%, according to Physical Assessment History notes. Percent of energy/protein needs met: Prescribed Cardiac -Renal- Diet provides for energy/ protein needs (2,072 Kcal/77 g ) during LOS; additionally, Dietary Supplements will compensate for possible poor or insufficient PO intake of meals with 850 Kcal and 38 g of protein. #1 Nutrition Diagnosis Increased nutrient needs ( specify in comment below) Diagnosis Progress(for reassessment Continues documentation) Nutrition Intervention Change Diet Order: Continue Cardiac -Renal- Diet. Add Supplement/Snack (indicate name/kcal Start 8 fl oz Nepro w/ /protein ) CARBSTEADY; BID. Provides kCal: 850 Provides Protein (gm) 38 Goal #1 Support, through dietary supplementation, hematological balance processes during LOS. Goal #2 Adjust the dietary intervention to better serve Pt's needs and clinical conditions during LOS. Goal #3 Maintain body weight within +/ -3% of admission body weight during LOS. Follow-Up By: 09/20/21 Additional Comments Continue monitoring food tolerance, %PO intake of meals , and BM.
[2021-09-18] MEDS: SODIUM FERRIC GLUCON/SUCRO 125 MG in SODIUM CHLORIDE 0.9% 100 ML IV SCH (11:17)
--- NOTE | 2021-09-18 14:37 | Hem/Onc Progress Note ---
Subjective Date of service: 09/18/21 Interval history: Heme progress note Seen via televisit CPT 82775 Dx Anemia This is a 61yo male who presents to [facility] ED with complaints of progressive shortness of breath and nose bleeds. Past medical history of chronic kidney disease. Patient is a very poor historian. In the emergency room patient is found to have hemoglobin of 4.8 and creatinine 48.4, lactic acid 2.80. Emergent HD initated, followed by nephrology. Received 4 units RBC transfusions this admission. Hematology following for anemia. DATA REVIEWED BELOW LDH 312 retic 2.51% Patient examined at bedside, reports feeling better today. 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 (12.2-14.9) H 09/09/21 18:53 INR 1.20 (0.87-1.13) H 09/09/21 18:53 D-Dimer 2203.38 ng/mlDDU (0-234) H 09/09/21 18:53 Creatinine 7.8 mg/dL (0.8-1.3) H 09/18/21 05:08 AST 17 units/L (5-40) 09/09/21 18:53 ALT 19 units/L (7-56) 09/09/21 18:53 Alkaline Phosphatase 57 units/L (35-129) 09/09/21 18:53 Ammonia 39.0 umol/L (25-60) 09/09/21 19:02 Lactate Dehydrogenase 312 units/L (91-180) H 09/17/21 10:13 Total Creatine Kinase 1530 units/L (55-170) H 09/10/21 Unknown CK-MB (CK-2) 21.4 ng/mL (0.0-4.0) H 09/09/21 18:53 CK-MB (CK-2) Rel Index 1.2 (0-4) 09/09/21 18:53 Troponin T 0.158 ng/mL (0.00-0.029) H* 09/10/21 Unknown C-Reactive Protein 1.50 mg/dL (0.00-1.30) H 09/09/21 18:53 NT-Pro-B Natriuret Pep 6011 pg/mL (0-900) H 09/09/21 18:53 Total Protein 7.4 g/dL (6.3-8.2) 09/09/21 18:53 Albumin 4.2 g/dL (3.9-5) 09/09/21 18:53 Albumin/Globulin Ratio 1.3 % 09/09/21 18:53 Triglycerides 177 mg/dL (2-149) H 09/09/21 18:53 Cholesterol 170 mg/dL (50-199) 09/09/21 18:53 LDL Cholesterol Direct 107 mg/dL (50-130) 09/09/21 18:53 HDL Cholesterol 28 mg/dL (40-59) L 09/09/21 18:53 Cholesterol/HDL Ratio 6.07 % 09/09/21 18:53 Lipase 1198 units/L (13-60) H 09/09/21 18:53 Prostate Specific Ag 5.18 ng/mL (0.00-4.00) H 09/10/21 Unknown PTH Intact 259.3 pg/mL (15-65) H 09/14/21 23:27 Urine Color Straw (Yellow) 09/09/21 11:35 Urine Turbidity Clear (Clear) 09/09/21 11:35 Hepatitis A IgM Ab Nonreactive (NonReactive) 09/09/21 20:55 Hep Bs Antigen Non-reactive (Negative) 09/09/21 20:55 Hep B Core IgM Ab Non-reactive (NonReactive) 09/09/21 20:55 Hepatitis C Antibody Non-reactive (NonReactive) 09/09/21 20:55 Blood Type O POSITIVE 09/15/21 07:50 Antibody Screen Negative 09/15/21 07:50 Direct Antiglob Test Negative 09/18/21 05:08 OMID, Poly Interpret Negative 09/18/21 05:08 Crossmatch See Detail 09/15/21 07:50 Objective - Constitutional Vitals: Last Vital Signs Temp 99.6 F 09/18/21 12:08 Pulse 100 H 09/18/21 12:08 Resp 20 09/18/21 12:08 BP 132/69 09/18/21 12:08 Pulse Ox 95 09/18/21 12:08 - Labs Lab Results: Laboratory Results - last 24 hr 09/17/21 09/18/21 09/18/21 10:13 05:08 05:08 WBC 8.9 RBC 2.69 L Hgb 7.6 L Hct 22.7 L MCV 85 MCH 28 MCHC 34 RDW 15.7 H Plt Count 214 [place] % (Auto) Leather Sorter Add Manual Diff Complete Total Counted 100 Seg Neuts % (Manual) 73.0 H Band Neutrophils % 0 Lymphocytes % (Manual) 14.0 Reactive Lymphs % (Man) 0 Monocytes % (Manual) 10.0 H Eosinophils % (Manual) 3.0 Basophils % (Manual) 0 Metamyelocytes % 0 Myelocytes % 0 Promyelocytes % 0 Blast Cells % 0 Nucleated RBC % Not Reportable Seg Neutrophils # Man 6.5 Band Neutrophils # 0.0 Lymphocytes # (Manual) 1.2 Abs React Lymphs (Man) 0.0 Monocytes # (Manual) 0.9 H Eosinophils # (Manual) 0.3 Basophils # (Manual) 0.0 Metamyelocytes # 0.0 Myelocytes # 0.0 Promyelocytes # 0.0 Blast Cells # 0.0 WBC Morphology Not Reportable Hypersegmented Neuts Not Reportable Hyposegmented Neuts Not Reportable Hypogranular Neuts Not Reportable Smudge Cells Not Reportable Toxic Granulation Rare Toxic Vacuolation Not Reportable Dohle Bodies Not Reportable Pelger-Huet Anomaly Not Reportable Francisco Javier Rods Not Reportable Platelet Estimate Consistent w auto Clumped Platelets Not Reportable Plt Clumps, EDTA Not Reportable Large Platelets Not Reportable Giant Platelets Not Reportable Platelet Satelliting Not Reportable Plt Morphology Comment Not Reportable RBC Morphology Not Reportable Dimorphic RBCs Not Reportable Polychromasia Few Hypochromasia Not Reportable Poikilocytosis Not Reportable Anisocytosis Not Reportable Microcytosis Not Reportable Macrocytosis Few Spherocytes Not Reportable Pappenheimer Bodies Not Reportable Sickle Cells Not Reportable Target Cells Not Reportable Tear Drop Cells Not Reportable Ovalocytes Not Reportable Helmet Cells Not Reportable [place]aniego-Damon Bodies Not Reportable [place] Rings Not Reportable [place] Cells Not Reportable Bite Cells Not Reportable Crenated Cell Not Reportable Elliptocytes Not Reportable Acanthocytes (Spur) Not Reportable Rouleaux Not Reportable Hemoglobin C Crystals Not Reportable Schistocytes Not Reportable Malaria parasites Not Reportable Jose Bodies Not Reportable Hem Pathologist Commnt No Sodium 137 Potassium 4.4 Chloride 103.2 Carbon Dioxide 22 Anion Gap 16 BUN 47 H Creatinine 7.8 H Estimated GFR 9 BUN/Creatinine Ratio 6 Glucose 86 Calcium 7.7 L Urine Total Volume 3750 Urine Creatinine 18.3 Height (in) 68.0 Weight (lb) 130.0 Creatinine Clearance 7 Direct Antiglob Test OMID, Poly Interpret 09/18/21 05:08 WBC RBC Hgb Hct MCV MCH MCHC RDW Plt Count [place] % (Auto) Add Manual Diff Total Counted Seg Neuts % (Manual) Band Neutrophils % Lymphocytes % (Manual) Reactive Lymphs % (Man) Monocytes % (Manual) Eosinophils % (Manual) Basophils % (Manual) Metamyelocytes % Myelocytes % Promyelocytes % Blast Cells % Nucleated RBC % Seg Neutrophils # Man Band Neutrophils # Lymphocytes # (Manual) Abs React Lymphs (Man) Monocytes # (Manual) Eosinophils # (Manual) Basophils # (Manual) Metamyelocytes # Myelocytes # Promyelocytes # Blast Cells # WBC Morphology Hypersegmented Neuts Hyposegmented Neuts Hypogranular Neuts Smudge Cells Toxic Granulation Toxic Vacuolation Dohle Bodies Pelger-Huet Anomaly Francisco Javier Rods Platelet Estimate Clumped Platelets Plt Clumps, EDTA Large Platelets Giant Platelets Platelet Satelliting Plt Morphology Comment RBC Morphology Dimorphic RBCs Polychromasia Hypochromasia Poikilocytosis Anisocytosis Microcytosis Macrocytosis Spherocytes Pappenheimer Bodies Sickle Cells Target Cells Tear Drop Cells Ovalocytes Helmet Cells Samaniego-Damon Bodies [place] Rings Vika Cells Bite Cells Crenated Cell Elliptocytes Acanthocytes (Spur) Rouleaux Hemoglobin C Crystals Schistocytes Malaria parasites Jose Bodies Hem Pathologist Commnt Sodium Potassium Chloride Carbon Dioxide Anion Gap BUN Creatinine Estimated GFR BUN/Creatinine Ratio Glucose Calcium Urine Total Volume Urine Creatinine Height (in) Weight (lb) Creatinine Clearance Direct Antiglob Test Negative OMID, Poly Interpret Negative Medications & Allergies - Medications Allergies/Adverse Reactions: Allergies No Known Allergies Allergy (Unverified 01/17/17 01:04) Home Medications: Home Medications Medication Instructions Recorded Confirmed Last Taken Type Acetaminophen/Codeine [Tylenol #3] 1 tab PO Q6H PRN #7 tab 01/17/17 09/14/21 Unknown Rx Ibuprofen [Motrin] 600 mg PO Q8H PRN #15 tablet 01/17/17 09/14/21 Unknown Rx methOCARBAMOL [Robaxin TAB] 500 mg PO Q6H PRN #15 tablet 01/17/17 09/14/21 Unknown Rx Active Medications: Generic Name Dose Route Start Last Admin Trade Name Freq PRN Reason Stop Dose Admin Acetaminophen 650 mg 09/09/21 20:24 Acetaminophen 325 Mg Tab PO Q4H PRN Pain MILD(1-3)/Fever >100.5/LOCO Amlodipine Besylate 10 mg 09/11/21 12:00 09/18/21 10:13 Amlodipine 10 Mg Tab PO 10 mg QDAY LENY Administration Calcitriol 0.5 mcg 09/14/21 19:00 09/18/21 10:13 Calcitriol 0.5 Mcg Cap PO 0.5 mcg QDAY LENY Administration Carvedilol 6.25 mg 09/12/21 22:00 09/18/21 10:12 Carvedilol 6.25 Mg Tab PO 6.25 mg BID LENY Administration Epoetin Alex-epbx 8,000 unit 09/16/21 16:00 09/16/21 14:15 Epoetin Alex-Epbx 10,000 Unit/1 Ml Vial SUB-Q 8,000 unit MoWeFr LENY Administration Hydralazine HCl 10 mg 09/15/21 07:29 Hydralazine 20 Mg/1 Ml Inj IV Q4H PRN Hypertension Hydralazine HCl 50 mg 09/15/21 08:00 09/18/21 10:16 Hydralazine 25 Mg Tab PO 50 mg Q8H LENY Administration Sodium Chloride 1,000 mls @ 125 mls/hr 09/11/21 11:45 09/18/21 05:22 Nacl 0.9% 1000 Ml IV 75 mls/hr DIRECT LENY Administration Sodium Chloride 100 mls @ 999 mls/hr 09/14/21 09:58 Nacl 0.9% IV MARTI PRN Hypotension Labetalol HCl 10 mg 09/11/21 11:09 Labetalol 20 Mg/4 Ml Inj IV Q4HR PRN sbp>160 Metoclopramide HCl 5 mg 09/14/21 09:00 Metoclopramide 10 Mg/2 Ml Inj IV Q8H PRN Nausea And Vomiting Morphine Sulfate 2 mg 09/09/21 20:24 09/10/21 06:00 Morphine 2 Mg/1 Ml Inj IV 2 mg Q4H PRN Administration Pain, Moderate (4-6) Ondansetron HCl 4 mg 09/09/21 20:24 09/11/21 03:43 Ondansetron 4 Mg/2 Ml Inj IV 4 mg Q3H PRN Administration Nausea And Vomiting Pantoprazole Sodium 40 mg 09/11/21 16:30 09/18/21 10:12 Pantoprazole 40 Mg Tab PO 40 mg BIDAC LENY Administration Sodium Chloride 10 ml 09/09/21 22:00 09/18/21 10:17 Sodium Chloride 0.9% 10 Ml Flush Syringe IV 10 ml BID LENY Administration Sodium Chloride 10 ml 09/09/21 20:24 Sodium Chloride 0.9% 10 Ml Flush Syringe IV PRN PRN LINE FLUSH Tamsulosin HCl 0.8 mg 09/11/21 12:00 09/18/21 10:13 Tamsulosin 0.4 Mg Cap PO 0.8 mg QDAY LENY Administration
--- NOTE | 2021-09-18 16:21 | Progress Note ---
Assessment and Plan Assessment Severe renal failure secondary to obstructive uropathy Hyperkalemia Metabolic acidosis Uremia Acute Anemia Hypocalcemia/Hyperparathyroidsm ? HUS Plan: Renal labs reviewed, SCr level was 7.8 today, yesterday's SCr level was 6.4 24 hr urine creatinine clearance was 7 ml/min on 09/17/21 Monitoring for signs of renal recovery No acute indication for HD today Assess need for HD on daily basis Last HD treatment was on 09/16/21 If no signs of renal recovery, pt will require perm catheter placement HemOnc is evaluating pt for possible HUS. If HUS, pt may require plasmapheresis. Will follow up HemOnc work up On 0.9% NS infusion at 125 ml/hr Monitor K, Mg and Phos with close monitoring for hypotension for signs of post- obstructive diuresis Initiated on HD on 09/10/21 CT AP showed BL hydronephrosis and bladder scan was positive for urinary retention. Urology consulted and placed león and recommended Flomax and to call them for león catheter removal HemOnc evaluated pt, pending Carole and [id number] test. If >10% then confidently say HUS. If HUS, would benefit from Soliris and supportive management with HD and transfusions per HemOnc note On Flomax 0.8 mg po daily On Calcitriol Renally dose medications Strict I&O's daily León Catheter: Yes Intake= 2491 ml Output= 1000 ml (Net= 1491 ml) Plan of care reviewed by Dr. Gregory Subjective Date of service: 09/18/21 Principal diagnosis: anemia, acute kidney failure Interval history: Pt seen in bed, denies shortness of breath, no acute distress. at bedside, updated on renal plan Objective - Vital Signs Vital signs: Vital Signs - 12hr 09/18/21 09/18/21 09/18/21 05:31 05:35 10:12 Temperature 97.8 F Pulse Rate 92 H 99 H Respiratory 18 Rate Blood Pressure 131/85 141/77 O2 Sat by Pulse 95 Oximetry 09/18/21 09/18/21 09/18/21 10:13 10:16 11:00 Temperature Pulse Rate 99 H 99 H Respiratory 20 Rate Blood Pressure 141/77 141/77 O2 Sat by Pulse 96 Oximetry 09/18/21 12:08 Temperature 99.6 F Pulse Rate 100 H Respiratory 20 Rate Blood Pressure 132/69 O2 Sat by Pulse 95 Oximetry - General Appearance General appearance: well-developed EENT: ATNC Respiratory: Present: Decreased Breath Sounds Cardiology: regular, S1S2, other (Right IJ Vas Catheter in place) Gastrointestinal: normoactive bowel sounds, no tenderness Integumentary: warm and dry Neurologic: alert and oriented x3 Musculoskeletal: other (trace edema to BLE) Psychiatric: cooperative - Lab 09/18/21 05:08 09/18/21 05:08 Most recent lab results ABG pH 7.100 pH Units (7.350-7.450) L* 09/09/21 21:00 ABG pCO2 20.0 mm Hg 09/09/21 21:00 ABG pO2 60.9 mm Hg (80.0-90.0) L 09/09/21 21:00 ABG HCO3 6.1 mmol/L (20.0-26.0) L 09/09/21 21:00 ABG O2 Saturation 81.1 % (95.0-99.0) L 09/09/21 21:00 Calcium 7.7 mg/dL (8.4-10.2) L 09/18/21 05:08 Phosphorus 2.70 mg/dL (2.5-4.5) 09/16/21 05:23 Magnesium 1.60 mg/dL (1.7-2.3) L 09/17/21 08:00 Urine Creatinine 18.3 mg/dL (0.1-20.0) 09/17/21 10:13 Urine Total Protein 201 mg/dL (5-11.8) H 09/10/21 11:35 Medications & Allergies - Medications Allergies/Adverse Reactions: Allergies No Known Allergies Allergy (Unverified 01/17/17 01:04) Home Medications: Home Medications Medication Instructions Recorded Confirmed Last Taken Type Acetaminophen/Codeine [Tylenol #3] 1 tab PO Q6H PRN #7 tab 01/17/17 09/14/21 Unknown Rx Ibuprofen [Motrin] 600 mg PO Q8H PRN #15 tablet 01/17/17 09/14/21 Unknown Rx methOCARBAMOL [Robaxin TAB] 500 mg PO Q6H PRN #15 tablet 01/17/17 09/14/21 Unknown Rx Active Medications: Generic Name Dose Route Start Last Admin Trade Name Freq PRN Reason Stop Dose Admin Acetaminophen 650 mg 09/09/21 20:24 Acetaminophen 325 Mg Tab PO Q4H PRN Pain MILD(1-3)/Fever >100.5/LCOO Amlodipine Besylate 10 mg 09/11/21 12:00 09/18/21 10:13 Amlodipine 10 Mg Tab PO 10 mg QDAY LENY Administration Calcitriol 0.5 mcg 09/14/21 19:00 09/18/21 10:13 Calcitriol 0.5 Mcg Cap PO 0.5 mcg QDAY LENY Administration Carvedilol 6.25 mg 09/12/21 22:00 09/18/21 10:12 Carvedilol 6.25 Mg Tab PO 6.25 mg BID LENY Administration Epoetin Alex-epbx 8,000 unit 09/16/21 16:00 09/16/21 14:15 Epoetin Alex-Epbx 10,000 Unit/1 Ml Vial SUB-Q 8,000 unit MoWeFr LENY Administration Hydralazine HCl 10 mg 09/15/21 07:29 Hydralazine 20 Mg/1 Ml Inj IV Q4H PRN Hypertension Hydralazine HCl 50 mg 09/15/21 08:00 09/18/21 10:16 Hydralazine 25 Mg Tab PO 50 mg Q8H LENY Administration Sodium Chloride 1,000 mls @ 125 mls/hr 09/11/21 11:45 09/18/21 05:22 Nacl 0.9% 1000 Ml IV 75 mls/hr DIRECT LENY Administration Sodium Chloride 100 mls @ 999 mls/hr 09/14/21 09:58 Nacl 0.9% IV MARTI PRN Hypotension Labetalol HCl 10 mg 09/11/21 11:09 Labetalol 20 Mg/4 Ml Inj IV Q4HR PRN sbp>160 Metoclopramide HCl 5 mg 09/14/21 09:00 Metoclopramide 10 Mg/2 Ml Inj IV Q8H PRN Nausea And Vomiting Morphine Sulfate 2 mg 09/09/21 20:24 09/10/21 06:00 Morphine 2 Mg/1 Ml Inj IV 2 mg Q4H PRN Administration Pain, Moderate (4-6) Ondansetron HCl 4 mg 09/09/21 20:24 09/11/21 03:43 Ondansetron 4 Mg/2 Ml Inj IV 4 mg Q3H PRN Administration Nausea And Vomiting Pantoprazole Sodium 40 mg 09/11/21 16:30 09/18/21 10:12 Pantoprazole 40 Mg Tab PO 40 mg BIDAC LENY Administration Sodium Chloride 10 ml 09/09/21 22:00 09/18/21 10:17 Sodium Chloride 0.9% 10 Ml Flush Syringe IV 10 ml BID LENY Administration Sodium Chloride 10 ml 09/09/21 20:24 Sodium Chloride 0.9% 10 Ml Flush Syringe IV PRN PRN LINE FLUSH Tamsulosin HCl 0.8 mg 09/11/21 12:00 09/18/21 10:13 Tamsulosin 0.4 Mg Cap PO 0.8 mg QDAY LENY Administration
[2021-09-18] MEDS: EPOETIN ALFA-EPBX 10,000 UNIT/1 ML VIAL SUB-Q SCH (18:45)
[2021-09-19] MEDS: hydrALAZINE 25 MG TAB PO SCH ×4 (00:10→23:26)
[2021-09-19 06:04] LABS: Calcium 7.7 mg/dL (8.4-10.2)
[2021-09-19 07:16] LABS: Basophils # (Auto) 0.1 K/mm3 (0.0-0.1); Basophils % (Auto) 0.9 % (0.0-1.8); Eosinophils # (Auto) 0.2 K/mm3 (0.0-0.4); Eosinophils % (Auto) 1.9 % (0.0-4.3); Hematocrit 26.2 % (35.5-45.6); Hemoglobin 8.1 gm/dl (11.8-15.2); Lymphocytes # (Auto) 1.2 K/mm3 (1.2-5.4); Lymphocytes % (Auto) 14.2 % (13.4-35.0); Mean Corpuscular HGB Conc 31 % (32-34); Mean Corpuscular Volume 87 fl (84-94); Monocytes # (Auto) 1.2 K/mm3 (0.0-0.8); Monocytes % (Auto) 14.1 % (0.0-7.3); Platelet Count 272 K/mm3 (140-440); Red Blood Count 3.01 M/mm3 (3.65-5.03); Red Cell Distribution Width 15.9 % (13.2-15.2)
[2021-09-19] MEDS: PANTOPRAZOLE 40 MG TAB PO SCH ×2 (07:29→16:20)
[2021-09-19] MEDS: SODIUM CHLORIDE 0.9% 1000 ML 1,000 ML IV SCH ×2 (07:29→16:18)
[2021-09-19] MEDS: CALCITRIOL 0.5 MCG CAP PO SCH (09:36)
[2021-09-19] MEDS: amLODIPine 10 MG TAB PO SCH (09:36)
[2021-09-19] MEDS: carvediloL 6.25 MG TAB PO SCH ×2 (09:36→22:33)
[2021-09-19] MEDS: TAMSULOSIN 0.4 MG CAP PO SCH (09:37)
--- NOTE | 2021-09-19 11:27 | Progress Note ---
Assessment and Plan Assessment and plan: 61 years old male with past medical history of chronic kidney disease was brought to the hospital because of progressive shortness of breath as stated with vomiting and bleeding from nose for 1 day. Patient is a very poor historian. In the emergency room patient is found to have hemoglobin of 4.8 and hematocrit 14.9 also patient is found to have potassium of 7.1, bicarb 4, anion gap 54, BUN to 38 and creatinine 48.4, lactic acid 2.80. ABG shows pH 7.100, PCO2 20+0, PO2 60.9, bicarb 6.1. The patient was admitted to critical care and underwent emergent hemodialysis. Acute kidney injury due to post renal obstruction Metabolic Acidosis (resolving) Lactic Acidosis 2.8-> 2.1 (resolved) Acute heart failure with preserved ejection fraction (ef 45-50%) Hyperkalemia (resolved) Hypokalemia Uremia (resolved) Urinary retention (resolving) Hypocalcemia Prostateamegaly - psa elevated to 5.18 - monitor electrolytes on serial renal profile - strict I/O, close UOP monitoring - avoid nephrotoxins, renally adjust medications Acute hypoxic respiratory failure (resolved) - O2 sat as low as 56% on admission, currently on room air satting greater than 92% - cxr: no acute findings. - pulmonology following Acute metabolic encephalopathy (resolved) - likely due to uremia - improving hypertension - elevated BP - coreg dose increased, hold linsey-i due to renal fx. Anemia s/p prbcs (stable) likely secondary epistatixis and renal insufficiency. R/o hemoglobinopathy, hemolytic anemia Unable to evaluate iron studies post RBC transfusions Epistaxis (appears resolved) - hx of recurrent epistaxis per son, patient had increased uncontrolled bleeding for 1 day. No prior hx of GI bleed or reported blood in stool. Uremia could have precipitated bleed. - Hgb: 4.8 on admission, s/p 4 units prbc, now 8's - transfuse prn Hgb< 7. - GI consulted due to concern for GI bleed on admission - protonix 40 mg po bid - unclear if this is truly GI source Type II myocardial infarction (resolved) - supply demand from anemia in the setting TIFFANIE - serial troponins ordered, downtrending. -cardiology following, no intervention at this time. EtOH use disorder person patient stopped a few weeks ago. Sepsis ruled out, doubt infectious etiology. Hospital Course: 09/10: Improved on bedside encounter. Urology placed león catheter. Plan for nephrology to complete HD today. Hgb improved to 8.3, suspect anemia is purely from epistaxis, unclear if there was truly was a GI source. Will continue to monitor for other source of bleed. GI consulted, will follow recommendations. 09/11: hemoglobin stable. patient on encounter states he had recurrent epistaxis bleed leading up to hospitalization. Hgb stable this AM. Renal indices improved on bmp. Urine output 1000 cc yesterday. Troponin downtrending. D/w Dr. Juan A Martin, will d/c protonix IV, start on protonix 40 mg po bid. Transfer to floor bed. 09/12: Doing well on encounter today. on room air saturating 98%. Renal indices improving. León output approx: 2500 cc yday. [place] tingued urine noted, clearing up. hemoglobin 8.1, VSS. No plan for HD today per nephrology. We will continue to follow along for hemodialysis plan moving forward and nephrology final impression on renal prognosis. Anticipate d/c in next 24-48 hrs depending on this. Patient will likely need to be discharged with León catheter and in structions to follow-up with urology as an outpatient. 09/13: Patient remains clinically stable. Renal function appears to slightly worsened today. Nephrology noted the slight worsening. Will reevaluate in a.m. Patient undergoing 24-hour urine collection. From respiratory standpoint patient is stable acute respiratory failure secondary to fluid overload has resolved. Plan discussed with the patient in detail he verbalized understanding. 15 minutes counseling provided to the patient about continued cessation of EtOH use on lifestyle preventive care measures. We will monitor potassium level and slight of renal failure. 09/14: Patient seen and examined this morning hypokalemia persist also hypocalcemia we will replace both potassium and calcium. Patient advised by paint stockman that he will be having dialysis today as creatinine is gradually creeping back up to 11.2 today. León remains in place with good urine output. Patient understands he will have to go home with a León and follow-up with urologist. Based on discussion with nephrology will determine if her permacath needs to be placed prior to discharge. I have also updated the and answered all questions. At this time awaiting renal recovery if possible. We will continue to monitor H&H 09/15: Patient seen and examined, no new complaints, review of labs shows improvement of renal function following HD yesterday, however HGB still decreasing. Will order a unit of PRBC and Hematology consultation. Further management and discharge plan depends on renal recovery and Nephrology input. Patient updated. 09/16: Patient seen and examined this morning. some response to blood transfusion noted. Reached out to nephrology to see if we should start planning for outpatient dialysis for this patient with the upward trend of creatinine following 2 days after dialysis. Appears the patient will get hemodialyzed again today. Overall concern for this patient is that he is got multiple issues pointing towards a poor renal resolution without dialysis outpatient. Will await nephrology input. He has had 4 units of packed red blood cell. Hemoglobin is at 7.7 09/17: Nephrology to hold hemodialysis today and monitor for renal recovery off hemodialysis. IV fluid increased. Follow-up 24-hour urine collection. Patient was initiated on hemodialysis on 09/10/21 due to severe renal failure coupled with severe Hyperkalemia and Acidosis. CT AP showed BL hydronephrosis and bladder scan was positive for urinary retention. Urology consulted and placed león and recommended Flomax and to call them for león catheter removal. Continue on Flomax 0.8 mg daily. Monitor post obstructive diuresis closely. Renally dose medications. Avoid nephrotoxic agents. Strict I&O's daily. Obtain daily weights. Assess dialysis needs daily. Follow-up labs LDH, retic, hemoglobin electrophoresis, spep. Hematology started Ferrlecit. Transfuse for hemoglobin less than 7 09/18: Hematology suspects hemolytic uremic syndrome. Follow-up labs for Carole, [id number] test , If dointw51 >10% then confidently say HUS. Also follow- up hemoglobin electrophoresis and SPEP. Continue Retacrit 3 times a week and Ferrlecit. Patient will need outpatient [place] hematology referral. Nephrology held HD on 09/17 to monitor for renal recovery without hemodialysis. Awaiting final decision on HD needs on an outpatient basis. Discharge planners will contact Brian and Michael to discuss james care, as patient is self-pay, at this time. \ 09/19: Patient seen in hemodialysis. Continue to follow-up serologies. [facility] is evaluating pt for possible HUS. If HUS, pt may require plasmapheresis. Will follow up HemOnc work up. Follow-up hemoglobin electrophoresis and SPEP. Patient will need outpatient [place] hematology referral. History Interval history: No new issues overnight Hospitalist Physical - Constitutional Vitals: Temp Pulse Resp BP Pulse Ox 98.2 F 96 H 20 171/101 100 09/19/21 10:20 09/19/21 10:20 09/19/21 10:20 09/19/21 10:20 09/19/21 10:20 General appearance: Present: no acute distress - EENT Eyes: Present: PERRL, EOM intact ENT: hearing intact, clear oral mucosa, dentition normal - Neck Neck: Present: supple, normal ROM - Respiratory Respiratory effort: normal Respiratory: bilateral: CTA - Cardiovascular Rhythm: regular Heart Sounds: Present: S1 & S2. Absent: gallop, rub - Extremities Extremities: no ischemia, No edema, Full ROM - Abdominal General gastrointestinal: soft, non-tender, non-distended, normal bowel sounds - Integumentary Integumentary: Present: clear, warm, dry - Neurologic Neurologic: CNII-XII intact, moves all extremities HEART Score - HEART Score Troponin: Troponin T 0.158 ng/mL (0.00-0.029) H* 09/10/21 Unknown Results - Labs CBC & Chem 7: 09/19/21 06:58 09/19/21 04:57 Labs: Laboratory Last Values WBC 8.6 K/mm3 (4.5-11.0) 09/19/21 06:58 RBC 3.01 M/mm3 (3.65-5.03) L 09/19/21 06:58 Hgb 8.1 gm/dl (11.8-15.2) L 09/19/21 06:58 Hct 26.2 % (35.5-45.6) L 09/19/21 06:58 MCV 87 fl (84-94) 09/19/21 06:58 MCH 27 pg (28-32) L 09/19/21 06:58 MCHC 31 % (32-34) L 09/19/21 06:58 RDW 15.9 % (13.2-15.2) H 09/19/21 06:58 Plt Count 272 K/mm3 (140-440) 09/19/21 06:58 Lymph % (Auto) 14.2 % (13.4-35.0) 09/19/21 06:58 [place] % (Auto) 14.1 % (0.0-7.3) H 09/19/21 06:58 Eos % (Auto) 1.9 % (0.0-4.3) 09/19/21 06:58 Baso % (Auto) 0.9 % (0.0-1.8) 09/19/21 06:58 Lymph # (Auto) 1.2 K/mm3 (1.2-5.4) 09/19/21 06:58 [place] # (Auto) 1.2 K/mm3 (0.0-0.8) H 09/19/21 06:58 Eos # (Auto) 0.2 K/mm3 (0.0-0.4) 09/19/21 06:58 Baso # (Auto) 0.1 K/mm3 (0.0-0.1) 09/19/21 06:58 Add Manual Diff Complete 09/18/21 05:08 Total Counted 100 09/18/21 05:08 Seg Neutrophils % 68.9 % (40.0-70.0) 09/19/21 06:58 Seg Neuts % (Manual) 73.0 % (40.0-70.0) H 09/18/21 05:08 Band Neutrophils % 0 % 09/18/21 05:08 Lymphocytes % (Manual) 14.0 % (13.4-35.0) 09/18/21 05:08 Reactive Lymphs % (Man) 0 % 09/18/21 05:08 Monocytes % (Manual) 10.0 % (0.0-7.3) H 09/18/21 05:08 Eosinophils % (Manual) 3.0 % (0.0-4.3) 09/18/21 05:08 Basophils % (Manual) 0 % (0.0-1.8) 09/18/21 05:08 Metamyelocytes % 0 % 09/18/21 05:08 Myelocytes % 0 % 09/18/21 05:08 Promyelocytes % 0 % 09/18/21 05:08 Blast Cells % 0 % 09/18/21 05:08 Nucleated RBC % Not Reportable 09/18/21 05:08 Seg Neutrophils # 5.9 K/mm3 (1.8-7.7) 09/19/21 06:58 Seg Neutrophils # Man 6.5 K/mm3 (1.8-7.7) 09/18/21 05:08 Band Neutrophils # 0.0 K/mm3 09/18/21 05:08 Lymphocytes # (Manual) 1.2 K/mm3 (1.2-5.4) 09/18/21 05:08 Abs React Lymphs (Man) 0.0 K/mm3 09/18/21 05:08 Monocytes # (Manual) 0.9 K/mm3 (0.0-0.8) H 09/18/21 05:08 Eosinophils # (Manual) 0.3 K/mm3 (0.0-0.4) 09/18/21 05:08 Basophils # (Manual) 0.0 K/mm3 (0.0-0.1) 09/18/21 05:08 Metamyelocytes # 0.0 K/mm3 09/18/21 05:08 Myelocytes # 0.0 K/mm3 09/18/21 05:08 Promyelocytes # 0.0 K/mm3 09/18/21 05:08 Blast Cells # 0.0 K/mm3 09/18/21 05:08 WBC Morphology Not Reportable 09/18/21 05:08 Hypersegmented Neuts Not Reportable 09/18/21 05:08 Hyposegmented Neuts Not Reportable 09/18/21 05:08 Hypogranular Neuts Not Reportable 09/18/21 05:08 Smudge Cells Not Reportable 09/18/21 05:08 Toxic Granulation Rare 09/18/21 05:08 Toxic Vacuolation Not Reportable 09/18/21 05:08 Dohle Bodies Not Reportable 09/18/21 05:08 Pelger-Huet Anomaly Not Reportable 09/18/21 05:08 Francisco Javier Rods Not Reportable 09/18/21 05:08 Platelet Estimate Consistent w auto 09/18/21 05:08 Clumped Platelets Not Reportable 09/18/21 05:08 Plt Clumps, EDTA Not Reportable 09/18/21 05:08 Large Platelets Not Reportable 09/18/21 05:08 Giant Platelets Not Reportable 09/18/21 05:08 Platelet Satelliting Not Reportable 09/18/21 05:08 Plt Morphology Comment Not Reportable 09/18/21 05:08 RBC Morphology Not Reportable 09/18/21 05:08 Dimorphic RBCs Not Reportable 09/18/21 05:08 Polychromasia Few 09/18/21 05:08 Hypochromasia Not Reportable 09/18/21 05:08 Poikilocytosis Not Reportable 09/18/21 05:08 Anisocytosis Not Reportable 09/18/21 05:08 Microcytosis Not Reportable 09/18/21 05:08 Macrocytosis Few 09/18/21 05:08 Spherocytes Not Reportable 09/18/21 05:08 Pappenheimer Bodies Not Reportable 09/18/21 05:08 Sickle Cells Not Reportable 09/18/21 05:08 Target Cells Not Reportable 09/18/21 05:08 Tear Drop Cells Not Reportable 09/18/21 05:08 Ovalocytes Not Reportable 09/18/21 05:08 Stomatocytes Rare 09/10/21 Unknown Helmet Cells Not Reportable 09/18/21 05:08 [place] Bodies Not Reportable 09/18/21 05:08 [place] Rings Not Reportable 09/18/21 05:08 [place] Cells Not Reportable 09/18/21 05:08 Bite Cells Not Reportable 09/18/21 05:08 Crenated Cell Not Reportable 09/18/21 05:08 Elliptocytes Not Reportable 09/18/21 05:08 Acanthocytes (Spur) Not Reportable 09/18/21 05:08 Rouleaux Not Reportable 09/18/21 05:08 Hemoglobin C Crystals Not Reportable 09/18/21 05:08 Schistocytes Not Reportable 09/18/21 05:08 Malaria parasites Not Reportable 09/18/21 05:08 Percent Retic 2.51 % (0.78-2.58) 09/17/21 10:13 Jose Bodies Not Reportable 09/18/21 05:08 Hem Pathologist Commnt No 09/18/21 05:08 PT 16.6 Sec. (12.2-14.9) H 09/09/21 18:53 INR 1.20 (0.87-1.13) H 09/09/21 18:53 D-Dimer 2203.38 ng/mlDDU (0-234) H 09/09/21 18:53 ABG pH 7.100 pH Units (7.350-7.450) L* 09/09/21 21:00 ABG pCO2 20.0 mm Hg 09/09/21 21:00 ABG pO2 60.9 mm Hg (80.0-90.0) L 09/09/21 21:00 ABG HCO3 6.1 mmol/L (20.0-26.0) L 09/09/21 21:00 ABG O2 Saturation 81.1 % (95.0-99.0) L 09/09/21 21:00 ABG O2 Content 4.8 (0.0-44) 09/09/21 21:00 ABG Base Excess -21.5 mmol/L (-2.0-3.0) L 09/09/21 21:00 ABG Hemoglobin 5.0 gm/dl (14.0-18.0) L 09/09/21 21:00 ABG Carboxyhemoglobin 1.3 % (0.0-5.0) 09/09/21 21:00 ABG Methemoglobin 0.5 % (0.0-1.5) 09/09/21 21:00 Oxyhemoglobin 79.7 % (95.0-99.0) L 09/09/21 21:00 FiO2 28 % 09/09/21 21:00 Sodium 141 mmol/L (137-145) 09/19/21 04:57 Potassium 4.9 mmol/L (3.6-5.0) 09/19/21 04:57 Chloride 107.9 mmol/L (98-107) H 09/19/21 04:57 Carbon Dioxide 17 mmol/L (22-30) L 09/19/21 04:57 Anion Gap 21 mmol/L 09/19/21 04:57 BUN 57 mg/dL (9-20) H 09/19/21 04:57 Creatinine 9.0 mg/dL (0.8-1.3) H 09/19/21 04:57 Estimated GFR 7 ml/min 09/19/21 04:57 BUN/Creatinine Ratio 6 % 09/19/21 04:57 Glucose 100 mg/dL (75-100) 09/19/21 04:57 POC Glucose 147 mg/dL (70-105) H 09/10/21 07:35 Lactic Acid 2.10 mmol/L (0.7-2.0) H* 09/09/21 20:49 Calcium 7.7 mg/dL (8.4-10.2) L 09/19/21 04:57 Phosphorus 2.70 mg/dL (2.5-4.5) 09/16/21 05:23 Magnesium 1.60 mg/dL (1.7-2.3) L 09/17/21 08:00 Total Bilirubin 0.30 mg/dL (0.1-1.2) 09/09/21 18:53 AST 17 units/L (5-40) 09/09/21 18:53 ALT 19 units/L (7-56) 09/09/21 18:53 Alkaline Phosphatase 57 units/L (35-129) 09/09/21 18:53 Ammonia 39.0 umol/L (25-60) 09/09/21 19:02 Lactate Dehydrogenase 312 units/L (91-180) H 09/17/21 10:13 Total Creatine Kinase 1530 units/L (55-170) H 09/10/21 Unknown CK-MB (CK-2) 21.4 ng/mL (0.0-4.0) H 09/09/21 18:53 CK-MB (CK-2) Rel Index 1.2 (0-4) 09/09/21 18:53 Troponin T 0.158 ng/mL (0.00-0.029) H* 09/10/21 Unknown C-Reactive Protein 1.50 mg/dL (0.00-1.30) H 09/09/21 18:53 NT-Pro-B Natriuret Pep 6011 pg/mL (0-900) H 09/09/21 18:53 Total Protein 7.4 g/dL (6.3-8.2) 09/09/21 18:53 Albumin 4.2 g/dL (3.9-5) 09/09/21 18:53 Albumin/Globulin Ratio 1.3 % 09/09/21 18:53 Triglycerides 177 mg/dL (2-149) H 09/09/21 18:53 Cholesterol 170 mg/dL (50-199) 09/09/21 18:53 LDL Cholesterol Direct 107 mg/dL (50-130) 09/09/21 18:53 HDL Cholesterol 28 mg/dL (40-59) L 09/09/21 18:53 Cholesterol/HDL Ratio 6.07 % 09/09/21 18:53 Lipase 1198 units/L (13-60) H 09/09/21 18:53 Prostate Specific Ag 5.18 ng/mL (0.00-4.00) H 09/10/21 Unknown PTH Intact 259.3 pg/mL (15-65) H 09/14/21 23:27 Urine Color Straw (Yellow) 09/09/21 11:35 Urine Turbidity Clear (Clear) 09/09/21 11:35 Urine pH 6.0 (5.0-7.0) 09/09/21 11:35 Ur Specific [place] 1.011 (1.003-1.030) 09/09/21 11:35 Urine Protein 100 mg/dl mg/dL (Negative) 09/09/21 11:35 Urine Glucose (UA) 50 mg/dL (Negative) 09/09/21 11:35 Urine Ketones Neg mg/dL (Negative) 09/09/21 11:35 Urine Blood Mod (Negative) 09/09/21 11:35 Urine Nitrite Neg (Negative) 09/09/21 11:35 Urine Bilirubin Neg (Negative) 09/09/21 11:35 Urine Urobilinogen < 2.0 mg/dL (<2.0) 09/09/21 11:35 Ur Leukocyte Esterase Neg (Negative) 09/09/21 11:35 Urine WBC (Auto) 2.0 /HPF (0.0-6.0) 09/09/21 11:35 Urine RBC (Auto) 11.0 /HPF (0.0-6.0) 09/09/21 11:35 Urine Total Volume 3750 ml 09/17/21 10:13 Urine Creatinine 18.3 mg/dL (0.1-20.0) 09/17/21 10:13 Height (in) 68.0 inches 09/17/21 10:13 Weight (lb) 130.0 lbs 09/17/21 10:13 Creatinine Clearance 7 09/17/21 10:13 Protein/Creatinin Ratio 1.78 09/10/21 11:35 Urine Total Protein 201 mg/dL (5-11.8) H 09/10/21 11:35 Urine Opiates Screen Presumptive negative 09/10/21 11:35 Urine Methadone Screen Presumptive negative 09/10/21 11:35 Ur Barbiturates Screen Presumptive negative 09/10/21 11:35 Ur Phencyclidine Scrn Presumptive negative 09/10/21 11:35 Ur Amphetamines Screen Presumptive negative 09/10/21 11:35 U Benzodiazepines Scrn Presumptive negative 09/10/21 11:35 Urine Cocaine Screen Presumptive negative 09/10/21 11:35 U Marijuana (THC) Screen Presumptive negative 09/10/21 11:35 Drugs of Abuse Note Disclamer 09/10/21 11:35 Plasma/Serum Alcohol < 0.01 % (0-0.07) 09/10/21 11:35 Coronavirus (PCR) Negative (Negative) 09/18/21 10:45 Hepatitis A IgM Ab Nonreactive (NonReactive) 09/09/21 20:55 Hep Bs Antigen Non-reactive (Negative) 09/09/21 20:55 Hep B Core IgM Ab Non-reactive (NonReactive) 09/09/21 20:55 Hepatitis C Antibody Non-reactive (NonReactive) 09/09/21 20:55 Blood Type O POSITIVE 09/15/21 07:50 Antibody Screen Negative 09/15/21 07:50 Direct Antiglob Test Negative 09/18/21 05:08 OMID, Poly Interpret Negative 09/18/21 05:08 Crossmatch See Detail 09/15/21 07:50 León/IV: Voiding Method Indwelling Catheter Active Medications - Current Medications Current Medications: Generic Name Dose Route Start Last Admin Trade Name Freq PRN Reason Stop Dose Admin Acetaminophen 650 mg 09/09/21 20:24 Acetaminophen 325 Mg Tab PO Q4H PRN Pain MILD(1-3)/Fever >100.5/LOCO Amlodipine Besylate 10 mg 09/11/21 12:00 09/19/21 09:36 Amlodipine 10 Mg Tab PO 10 mg QDAY LENY Administration Calcitriol 0.5 mcg 09/14/21 19:00 09/19/21 09:36 Calcitriol 0.5 Mcg Cap PO 0.5 mcg QDAY LENY Administration Carvedilol 6.25 mg 09/12/21 22:00 09/19/21 09:36 Carvedilol 6.25 Mg Tab PO 6.25 mg BID LENY Administration Epoetin Alex-epbx 8,000 unit 09/16/21 16:00 09/18/21 18:45 Epoetin Alex-Epbx 10,000 Unit/1 Ml Vial SUB-Q 8,000 unit MoWeFr LENY Administration Hydralazine HCl 10 mg 09/15/21 07:29 Hydralazine 20 Mg/1 Ml Inj IV Q4H PRN Hypertension Hydralazine HCl 50 mg 09/15/21 08:00 09/19/21 09:42 Hydralazine 25 Mg Tab PO 50 mg Q8H LENY Administration Sodium Chloride 1,000 mls @ 125 mls/hr 09/11/21 11:45 09/19/21 07:29 Nacl 0.9% 1000 Ml IV 75 mls/hr DIRECT LENY Administration Sodium Chloride 100 mls @ 999 mls/hr 09/14/21 09:58 Nacl 0.9% IV MARTI PRN Hypotension Labetalol HCl 10 mg 09/11/21 11:09 Labetalol 20 Mg/4 Ml Inj IV Q4HR PRN sbp>160 Metoclopramide HCl 5 mg 09/14/21 09:00 Metoclopramide 10 Mg/2 Ml Inj IV Q8H PRN Nausea And Vomiting Morphine Sulfate 2 mg 09/09/21 20:24 09/10/21 06:00 Morphine 2 Mg/1 Ml Inj IV 2 mg Q4H PRN Administration Pain, Moderate (4-6) Ondansetron HCl 4 mg 09/09/21 20:24 09/11/21 03:43 Ondansetron 4 Mg/2 Ml Inj IV 4 mg Q3H PRN Administration Nausea And Vomiting Pantoprazole Sodium 40 mg 09/11/21 16:30 09/19/21 07:29 Pantoprazole 40 Mg Tab PO 40 mg BIDAC LENY Administration Sodium Chloride 10 ml 09/09/21 22:00 09/18/21 22:26 Sodium Chloride 0.9% 10 Ml Flush Syringe IV 10 ml BID LENY Administration Sodium Chloride 10 ml 09/09/21 20:24 Sodium Chloride 0.9% 10 Ml Flush Syringe IV PRN PRN LINE FLUSH Tamsulosin HCl 0.8 mg 09/11/21 12:00 09/19/21 09:37 Tamsulosin 0.4 Mg Cap PO 0.8 mg QDAY LENY Administration Nutrition/Malnutrition Assess - Dietary Evaluation Nutrition/Malnutrition Findings: Nutrition Notes Start: 09/10/21 15:32 Freq: Status: Active Protocol: Document 09/13/21 17:41 VANESSA (Rec: 09/13/21 17:53 VANESSA [id number]) Nutrition Notes Initial or Follow up Brief Note Current Diagnosis CKD(stage I-IV),Hypertension Other Pertinent Diagnosis ARF/CKD, Anuria, Epistaxis, Anemia, STEMI II, Acidosis, SOB, EtOH Abuse... Current Diet Cardiac -Renal- Diet (since L 09/11), D Suppl (since B 09/14 ). Height 5 ft 8 in Weight 58.967 kg [place] Body Weight (kg) 70.00 BMI 19.8 Weight change and time frame No body weight change reported in 3 days. Weight Status Appropriate Subjective/Other Information RD consult for routine F/U on Dietary Advancement. Pt now on PO diet. No reports available on Pt's PO intake of meals at the time, will assess at F/U. Pt on Room Air, O2 saturation @ 99%, according to Physical Assessment History notes. Percent of energy/protein needs met: Prescribed Cardiac -Renal- Diet provides for energy/ protein needs (2,072 Kcal/77 g ) during LOS; additionally, Dietary Supplements will compensate for possible poor or insufficient PO intake of meals with 850 Kcal and 38 g of protein. #1 Nutrition Diagnosis Increased nutrient needs ( specify in comment below) Diagnosis Progress(for reassessment Continues documentation) Nutrition Intervention Change Diet Order: Continue Cardiac -Renal- Diet. Add Supplement/Snack (indicate name/kcal Start 8 fl oz Nepro w/ /protein ) CARBSTEADY; BID. Provides kCal: 850 Provides Protein (gm) 38 Goal #1 Support, through dietary supplementation, hematological balance processes during LOS. Goal #2 Adjust the dietary intervention to better serve Pt's needs and clinical conditions during LOS. Goal #3 Maintain body weight within +/ -3% of admission body weight during LOS. Follow-Up By: 09/20/21 Additional Comments Continue monitoring food tolerance, %PO intake of meals , and BM.
[2021-09-19 12:29] LABS: Vitamin D, 25-OH, D2 <4 ng/mL
[2021-09-19] MEDS ORDERED: ALTEPLASE 2 MG INJ ONE (13:15)
--- NOTE | 2021-09-19 16:05 | Progress Note ---
Assessment and Plan Severe renal failure secondary to obstructive uropathy Hyperkalemia Metabolic acidosis Uremia Acute Anemia Hypocalcemia/Hyperparathyroidsm ? HUS Plan: HD today for clearance only, good UOP Monitoring for signs of renal recovery work up by hematology for possible HUS Assess need for HD on daily basis If no signs of renal recovery, pt will require perm catheter placement Monitor K, Mg and Phos with close monitoring for hypotension for signs of post- obstructive diuresis Initiated on HD on 09/10/21 CT AP showed BL hydronephrosis and bladder scan was positive for urinary retention. Urology consulted and placed león and recommended Flomax and to call them for león catheter removal On Flomax 0.8 mg po daily On Calcitriol Renally dose medications Strict I&O's daily León Catheter: Yes Subjective Date of service: 09/19/21 Principal diagnosis: anemia, acute kidney failure Interval history: tolerating HD today Objective - Vital Signs Vital signs: Vital Signs - 12hr 09/19/21 09/19/21 09/19/21 06:07 09:36 09:42 Temperature 99.3 F Pulse Rate 101 H 96 H 96 H Respiratory 20 Rate Blood Pressure 137/75 144/80 144/80 O2 Sat by Pulse 96 Oximetry O2 Sat by Pulse Oximetry [ Bilateral Throughout] 09/19/21 09/19/21 09/19/21 10:20 10:25 10:30 Temperature 98.2 F Pulse Rate 96 H 98 H 97 H Respiratory 20 Rate Blood Pressure 171/101 179/92 170/96 O2 Sat by Pulse Oximetry O2 Sat by Pulse 100 Oximetry [ Bilateral Throughout] 09/19/21 09/19/21 09/19/21 10:45 11:00 11:15 Temperature Pulse Rate 92 H 96 H 98 H Respiratory 18 Rate Blood Pressure 158/66 148/92 132/68 O2 Sat by Pulse 97 Oximetry O2 Sat by Pulse Oximetry [ Bilateral Throughout] 09/19/21 09/19/21 09/19/21 11:30 11:45 12:00 Temperature Pulse Rate 98 H 98 H 95 H Respiratory Rate Blood Pressure 141/77 133/76 130/77 O2 Sat by Pulse Oximetry O2 Sat by Pulse Oximetry [ Bilateral Throughout] - Lab 09/19/21 06:58 09/19/21 04:57 Most recent lab results ABG pH 7.100 pH Units (7.350-7.450) L* 05/02/22 21:00 ABG pCO2 20.0 mm Hg 09/09/21 21:00 ABG pO2 60.9 mm Hg (80.0-90.0) L 09/09/21 21:00 ABG HCO3 6.1 mmol/L (20.0-26.0) L 09/09/21 21:00 ABG O2 Saturation 81.1 % (95.0-99.0) L 09/09/21 21:00 Calcium 7.7 mg/dL (8.4-10.2) L 09/19/21 04:57 Phosphorus 2.70 mg/dL (2.5-4.5) 09/16/21 05:23 Magnesium 1.60 mg/dL (1.7-2.3) L 09/17/21 08:00 Urine Creatinine 18.3 mg/dL (0.1-20.0) 09/17/21 10:13 Urine Total Protein 201 mg/dL (5-11.8) H 09/10/21 11:35 Medications & Allergies - Medications Allergies/Adverse Reactions: Allergies No Known Allergies Allergy (Unverified 01/17/17 01:04) Home Medications: Home Medications Medication Instructions Recorded Confirmed Last Taken Type Acetaminophen/Codeine [Tylenol #3] 1 tab PO Q6H PRN #7 tab 01/17/17 09/14/21 Unknown Rx Ibuprofen [Motrin] 600 mg PO Q8H PRN #15 tablet 01/17/17 09/14/21 Unknown Rx methOCARBAMOL [Robaxin TAB] 500 mg PO Q6H PRN #15 tablet 01/17/17 09/14/21 Unknown Rx Active Medications: Generic Name Dose Route Start Last Admin Trade Name Freq PRN Reason Stop Dose Admin Acetaminophen 650 mg 09/09/21 20:24 Acetaminophen 325 Mg Tab PO Q4H PRN Pain MILD(1-3)/Fever >100.5/LOCO Amlodipine Besylate 10 mg 09/11/21 12:00 09/19/21 09:36 Amlodipine 10 Mg Tab PO 10 mg QDAY LENY Administration Calcitriol 0.5 mcg 09/14/21 19:00 09/19/21 09:36 Calcitriol 0.5 Mcg Cap PO 0.5 mcg QDAY LENY Administration Carvedilol 6.25 mg 09/12/21 22:00 09/19/21 09:36 Carvedilol 6.25 Mg Tab PO 6.25 mg BID LENY Administration Epoetin Alex-epbx 8,000 unit 09/16/21 16:00 09/18/21 18:45 Epoetin Alex-Epbx 10,000 Unit/1 Ml Vial SUB-Q 8,000 unit MoWeFr LENY Administration Hydralazine HCl 10 mg 09/15/21 07:29 Hydralazine 20 Mg/1 Ml Inj IV Q4H PRN Hypertension Hydralazine HCl 50 mg 09/15/21 08:00 09/19/21 09:42 Hydralazine 25 Mg Tab PO 50 mg Q8H LENY Administration Sodium Chloride 1,000 mls @ 125 mls/hr 09/11/21 11:45 09/19/21 07:29 Nacl 0.9% 1000 Ml IV 75 mls/hr DIRECT LENY Administration Sodium Chloride 100 mls @ 999 mls/hr 09/14/21 09:58 Nacl 0.9% IV MARTI PRN Hypotension Labetalol HCl 10 mg 09/11/21 11:09 Labetalol 20 Mg/4 Ml Inj IV Q4HR PRN sbp>160 Metoclopramide HCl 5 mg 09/14/21 09:00 Metoclopramide 10 Mg/2 Ml Inj IV Q8H PRN Nausea And Vomiting Morphine Sulfate 2 mg 09/09/21 20:24 09/10/21 06:00 Morphine 2 Mg/1 Ml Inj IV 2 mg Q4H PRN Administration Pain, Moderate (4-6) Ondansetron HCl 4 mg 09/09/21 20:24 09/11/21 03:43 Ondansetron 4 Mg/2 Ml Inj IV 4 mg Q3H PRN Administration Nausea And Vomiting Pantoprazole Sodium 40 mg 09/11/21 16:30 09/19/21 07:29 Pantoprazole 40 Mg Tab PO 40 mg BIDAC LENY Administration Sodium Chloride 10 ml 09/09/21 22:00 09/18/21 22:26 Sodium Chloride 0.9% 10 Ml Flush Syringe IV 10 ml BID LENY Administration Sodium Chloride 10 ml 09/09/21 20:24 Sodium Chloride 0.9% 10 Ml Flush Syringe IV PRN PRN LINE FLUSH Tamsulosin HCl 0.8 mg 09/11/21 12:00 09/19/21 09:37 Tamsulosin 0.4 Mg Cap PO 0.8 mg QDAY LENY Administration
[2021-09-19] MEDS ORDERED: SODIUM CHLORIDE 0.9% 100 ML IV PRN (17:12)
[2021-09-19] MEDS ORDERED: ALTEPLASE 2 MG INJ IV PRN (17:12)
[2021-09-19 18:29] LABS: Albumin 2.5 g/dL (3.8-4.8); Gamma Globulin 0.8 g/dL (0.8-1.7)
[2021-09-19] MEDS: ACETAMINOPHEN 325 MG TAB PO PRN (22:40)
[2021-09-20] MEDS: SODIUM CHLORIDE 0.9% 1000 ML 1,000 ML IV SCH ×2 (05:27→21:30)
[2021-09-20 06:16] LABS: Basophils # (Auto) 0.1 K/mm3 (0.0-0.1); Basophils % (Auto) 0.6 % (0.0-1.8); Eosinophils # (Auto) 0.1 K/mm3 (0.0-0.4); Eosinophils % (Auto) 1.6 % (0.0-4.3); Hematocrit 23.8 % (35.5-45.6); Hemoglobin 7.5 gm/dl (11.8-15.2); Lymphocytes # (Auto) 1.2 K/mm3 (1.2-5.4); Lymphocytes % (Auto) 13.4 % (13.4-35.0); Mean Corpuscular HGB Conc 32 % (32-34); Mean Corpuscular Volume 87 fl (84-94); Monocytes # (Auto) 1.3 K/mm3 (0.0-0.8); Platelet Count 258 K/mm3 (140-440); Red Blood Count 2.73 M/mm3 (3.65-5.03)
[2021-09-20 06:33] LABS: Calcium 7.6 mg/dL (8.4-10.2)
--- NOTE | 2021-09-20 08:51 | Progress Note ---
Assessment and Plan Assessment and plan: 61 years old male with past medical history of chronic kidney disease was brought to the hospital because of progressive shortness of breath as stated with vomiting and bleeding from nose for 1 day. Patient is a very poor historian. In the emergency room patient is found to have hemoglobin of 4.8 and hematocrit 14.9 also patient is found to have potassium of 7.1, bicarb 4, anion gap 54, BUN to 38 and creatinine 48.4, lactic acid 2.80. ABG shows pH 7.100, PCO2 20+0, PO2 60.9, bicarb 6.1. The patient was admitted to critical care and underwent emergent hemodialysis. Acute kidney injury due to post renal obstruction Metabolic Acidosis (resolving) Lactic Acidosis 2.8-> 2.1 (resolved) Acute heart failure with preserved ejection fraction (ef 45-50%) Hyperkalemia (resolved) Hypokalemia Uremia (resolved) Urinary retention (resolving) Hypocalcemia Prostateamegaly - psa elevated to 5.18 - monitor electrolytes on serial renal profile - strict I/O, close UOP monitoring - avoid nephrotoxins, renally adjust medications Acute hypoxic respiratory failure (resolved) - O2 sat as low as 56% on admission, currently on room air satting greater than 92% - cxr: no acute findings. - pulmonology following Acute metabolic encephalopathy (resolved) - likely due to uremia - improving hypertension - elevated BP - coreg dose increased, hold linsey-i due to renal fx. Anemia s/p prbcs (stable) likely secondary epistatixis and renal insufficiency. R/o hemoglobinopathy, hemolytic anemia Unable to evaluate iron studies post RBC transfusions Epistaxis (appears resolved) - hx of recurrent epistaxis per son, patient had increased uncontrolled bleeding for 1 day. No prior hx of GI bleed or reported blood in stool. Uremia could have precipitated bleed. - Hgb: 4.8 on admission, s/p 4 units prbc, now 8's - transfuse prn Hgb< 7. - GI consulted due to concern for GI bleed on admission - protonix 40 mg po bid - unclear if this is truly GI source Type II myocardial infarction (resolved) - supply demand from anemia in the setting TIFFANIE - serial troponins ordered, downtrending. -cardiology following, no intervention at this time. EtOH use disorder person patient stopped a few weeks ago. Sepsis ruled out, doubt infectious etiology. Hospital Course: 09/10: Improved on bedside encounter. Urology placed león catheter. Plan for nephrology to complete HD today. Hgb improved to 8.3, suspect anemia is purely from epistaxis, unclear if there was truly was a GI source. Will continue to monitor for other source of bleed. GI consulted, will follow recommendations. 09/11: hemoglobin stable. patient on encounter states he had recurrent epistaxis bleed leading up to hospitalization. Hgb stable this AM. Renal indices improved on bmp. Urine output 1000 cc yesterday. Troponin downtrending. D/w Dr. Juan A Martin, will d/c protonix IV, start on protonix 40 mg po bid. Transfer to floor bed. 09/12: Doing well on encounter today. on room air saturating 98%. Renal indices improving. León output approx: 2500 cc yday. [place] tingued urine noted, clearing up. hemoglobin 8.1, VSS. No plan for HD today per nephrology. We will continue to follow along for hemodialysis plan moving forward and nephrology final impression on renal prognosis. Anticipate d/c in next 24-48 hrs depending on this. Patient will likely need to be discharged with León catheter and in structions to follow-up with urology as an outpatient. 09/13: Patient remains clinically stable. Renal function appears to slightly worsened today. Nephrology noted the slight worsening. Will reevaluate in a.m. Patient undergoing 24-hour urine collection. From respiratory standpoint patient is stable acute respiratory failure secondary to fluid overload has resolved. Plan discussed with the patient in detail he verbalized understanding. 15 minutes counseling provided to the patient about continued cessation of EtOH use on lifestyle preventive care measures. We will monitor potassium level and slight of renal failure. 09/14: Patient seen and examined this morning hypokalemia persist also hypocalcemia we will replace both potassium and calcium. Patient advised by geophysical prospector that he will be having dialysis today as creatinine is gradually creeping back up to 11.2 today. León remains in place with good urine output. Patient understands he will have to go home with a León and follow-up with urologist. Based on discussion with nephrology will determine if her permacath needs to be placed prior to discharge. I have also updated the and answered all questions. At this time awaiting renal recovery if possible. We will continue to monitor H&H 09/15: Patient seen and examined, no new complaints, review of labs shows improvement of renal function following HD yesterday, however HGB still decreasing. Will order a unit of PRBC and Hematology consultation. Further management and discharge plan depends on renal recovery and Nephrology input. Patient updated. 09/16: Patient seen and examined this morning. some response to blood transfusion noted. Reached out to nephrology to see if we should start planning for outpatient dialysis for this patient with the upward trend of creatinine following 2 days after dialysis. Appears the patient will get hemodialyzed again today. Overall concern for this patient is that he is got multiple issues pointing towards a poor renal resolution without dialysis outpatient. Will await nephrology input. He has had 4 units of packed red blood cell. Hemoglobin is at 7.7 09/17: Nephrology to hold hemodialysis today and monitor for renal recovery off hemodialysis. IV fluid increased. Follow-up 24-hour urine collection. Patient was initiated on hemodialysis on 09/10/21 due to severe renal failure coupled with severe Hyperkalemia and Acidosis. CT AP showed BL hydronephrosis and bladder scan was positive for urinary retention. Urology consulted and placed león and recommended Flomax and to call them for león catheter removal. Continue on Flomax 0.8 mg daily. Monitor post obstructive diuresis closely. Renally dose medications. Avoid nephrotoxic agents. Strict I&O's daily. Obtain daily weights. Assess dialysis needs daily. Follow-up labs LDH, retic, hemoglobin electrophoresis, spep. Hematology started Ferrlecit. Transfuse for hemoglobin less than 7 09/18: Hematology suspects hemolytic uremic syndrome. Follow-up labs for Carole, [id number] test , If [id number] >10% then confidently say HUS. Also follow- up hemoglobin electrophoresis and SPEP. Continue Retacrit 3 times a week and Ferrlecit. Patient will need outpatient [place] hematology referral. Nephrology held HD on 09/17 to monitor for renal recovery without hemodialysis. Awaiting final decision on HD needs on an outpatient basis. Discharge planners will contact Brian and Michael to discuss james care, as patient is self-pay, at this time. \ 09/19: Patient seen in hemodialysis. Continue to follow-up serologies. [facility] is evaluating pt for possible HUS. If HUS, pt may require plasmapheresis. Will follow up HemOnc work up. Follow-up hemoglobin electrophoresis and SPEP. Patient will need outpatient [place] hematology referral. 09/20: Follow-up labs for Carole, [id number] test , If [id number] >10% then co nfidently say HUS. Also follow-up hemoglobin electrophoresis and SPEP. Continue Retacrit 3 times a week and Ferrlecit. Patient will need outpatient [place] hematology referral. Patient had hemodialysis yesterday for clearance only. Patient has had good UOP. Continue to monitor for signs of renal recovery. History Interval history: No new issues overnight Hospitalist Physical - Constitutional Vitals: Temp Pulse Resp BP Pulse Ox 98.6 F 93 H 19 142/78 98 09/20/21 05:03 09/20/21 05:03 09/20/21 05:03 09/20/21 05:03 09/20/21 05:03 General appearance: Present: no acute distress - EENT Eyes: Present: PERRL, EOM intact ENT: hearing intact, clear oral mucosa, dentition normal - Neck Neck: Present: supple, normal ROM - Respiratory Respiratory effort: normal Respiratory: bilateral: CTA - Cardiovascular Rhythm: regular Heart Sounds: Present: S1 & S2. Absent: gallop, rub - Extremities Extremities: no ischemia, No edema, Full ROM - Abdominal General gastrointestinal: soft, non-tender, non-distended, normal bowel sounds - Integumentary Integumentary: Present: clear, warm, dry - Neurologic Neurologic: CNII-XII intact, moves all extremities HEART Score - HEART Score Troponin: Troponin T 0.158 ng/mL (0.00-0.029) H* 09/10/21 Unknown Results - Labs CBC & Chem 7: 09/20/21 05:25 09/20/21 05:25 Labs: Laboratory Last Values WBC 8.9 K/mm3 (4.5-11.0) 09/20/21 05:25 RBC 2.73 M/mm3 (3.65-5.03) L 09/20/21 05:25 Hgb 7.5 gm/dl (11.8-15.2) L 09/20/21 05:25 Hct 23.8 % (35.5-45.6) L 09/20/21 05:25 MCV 87 fl (84-94) 09/20/21 05:25 MCH 28 pg (28-32) 09/20/21 05:25 MCHC 32 % (32-34) 09/20/21 05:25 RDW 16.0 % (13.2-15.2) H 09/20/21 05:25 Plt Count 258 K/mm3 (140-440) 09/20/21 05:25 Lymph % (Auto) 13.4 % (13.4-35.0) 09/20/21 05:25 [place] % (Auto) 15.0 % (0.0-7.3) H 09/20/21 05:25 Eos % (Auto) 1.6 % (0.0-4.3) 09/20/21 05:25 Baso % (Auto) 0.6 % (0.0-1.8) 09/20/21 05:25 Lymph # (Auto) 1.2 K/mm3 (1.2-5.4) 09/20/21 05:25 [place] # (Auto) 1.3 K/mm3 (0.0-0.8) H 09/20/21 05:25 Eos # (Auto) 0.1 K/mm3 (0.0-0.4) 09/20/21 05:25 Baso # (Auto) 0.1 K/mm3 (0.0-0.1) 09/20/21 05:25 Add Manual Diff Complete 09/18/21 05:08 Total Counted 100 09/18/21 05:08 Seg Neutrophils % 69.4 % (40.0-70.0) 09/20/21 05:25 Seg Neuts % (Manual) 73.0 % (40.0-70.0) H 09/18/21 05:08 Band Neutrophils % 0 % 09/18/21 05:08 Lymphocytes % (Manual) 14.0 % (13.4-35.0) 09/18/21 05:08 Reactive Lymphs % (Man) 0 % 09/18/21 05:08 Monocytes % (Manual) 10.0 % (0.0-7.3) H 09/18/21 05:08 Eosinophils % (Manual) 3.0 % (0.0-4.3) 09/18/21 05:08 Basophils % (Manual) 0 % (0.0-1.8) 09/18/21 05:08 Metamyelocytes % 0 % 09/18/21 05:08 Myelocytes % 0 % 09/18/21 05:08 Promyelocytes % 0 % 09/18/21 05:08 Blast Cells % 0 % 09/18/21 05:08 Nucleated RBC % Not Reportable 09/18/21 05:08 Seg Neutrophils # 6.2 K/mm3 (1.8-7.7) 09/20/21 05:25 Seg Neutrophils # Man 6.5 K/mm3 (1.8-7.7) 09/18/21 05:08 Band Neutrophils # 0.0 K/mm3 09/18/21 05:08 Lymphocytes # (Manual) 1.2 K/mm3 (1.2-5.4) 09/18/21 05:08 Abs React Lymphs (Man) 0.0 K/mm3 09/18/21 05:08 Monocytes # (Manual) 0.9 K/mm3 (0.0-0.8) H 09/18/21 05:08 Eosinophils # (Manual) 0.3 K/mm3 (0.0-0.4) 09/18/21 05:08 Basophils # (Manual) 0.0 K/mm3 (0.0-0.1) 09/18/21 05:08 Metamyelocytes # 0.0 K/mm3 09/18/21 05:08 Myelocytes # 0.0 K/mm3 09/18/21 05:08 Promyelocytes # 0.0 K/mm3 09/18/21 05:08 Blast Cells # 0.0 K/mm3 09/18/21 05:08 WBC Morphology Not Reportable 09/18/21 05:08 Hypersegmented Neuts Not Reportable 09/18/21 05:08 Hyposegmented Neuts Not Reportable 09/18/21 05:08 Hypogranular Neuts Not Reportable 09/18/21 05:08 Smudge Cells Not Reportable 09/18/21 05:08 Toxic Granulation Rare 09/18/21 05:08 Toxic Vacuolation Not Reportable 09/18/21 05:08 Dohle Bodies Not Reportable 09/18/21 05:08 Pelger-Huet Anomaly Not Reportable 09/18/21 05:08 Francisco Javier Rods Not Reportable 09/18/21 05:08 Platelet Estimate Consistent w auto 09/18/21 05:08 Clumped Platelets Not Reportable 09/18/21 05:08 Plt Clumps, EDTA Not Reportable 09/18/21 05:08 Large Platelets Not Reportable 09/18/21 05:08 Giant Platelets Not Reportable 09/18/21 05:08 Platelet Satelliting Not Reportable 09/18/21 05:08 Plt Morphology Comment Not Reportable 09/18/21 05:08 RBC Morphology Not Reportable 09/18/21 05:08 Dimorphic RBCs Not Reportable 09/18/21 05:08 Polychromasia Few 09/18/21 05:08 Hypochromasia Not Reportable 09/18/21 05:08 Poikilocytosis Not Reportable 09/18/21 05:08 Anisocytosis Not Reportable 09/18/21 05:08 Microcytosis Not Reportable 09/18/21 05:08 Macrocytosis Few 09/18/21 05:08 Spherocytes Not Reportable 09/18/21 05:08 Pappenheimer Bodies Not Reportable 09/18/21 05:08 Sickle Cells Not Reportable 09/18/21 05:08 Target Cells Not Reportable 09/18/21 05:08 Tear Drop Cells Not Reportable 09/18/21 05:08 Ovalocytes Not Reportable 09/18/21 05:08 Stomatocytes Rare 09/10/21 Unknown Helmet Cells Not Reportable 09/18/21 05:08 [place] Bodies Not Reportable 09/18/21 05:08 [place] Rings Not Reportable 09/18/21 05:08 Vika Cells Not Reportable 09/18/21 05:08 Bite Cells Not Reportable 09/18/21 05:08 Crenated Cell Not Reportable 09/18/21 05:08 Elliptocytes Not Reportable 09/18/21 05:08 Acanthocytes (Spur) Not Reportable 09/18/21 05:08 Rouleaux Not Reportable 09/18/21 05:08 Hemoglobin C Crystals Not Reportable 09/18/21 05:08 Schistocytes Not Reportable 09/18/21 05:08 Malaria parasites Not Reportable 09/18/21 05:08 Percent Retic 2.51 % (0.78-2.58) 09/17/21 10:13 Jose Bodies Not Reportable 09/18/21 05:08 Hem Pathologist Commnt No 09/18/21 05:08 PT 16.6 Sec. (12.2-14.9) H 09/09/21 18:53 INR 1.20 (0.87-1.13) H 09/09/21 18:53 D-Dimer 2203.38 ng/mlDDU (0-234) H 09/09/21 18:53 ABG pH 7.100 pH Units (7.350-7.450) L* 09/09/21 21:00 ABG pCO2 20.0 mm Hg 09/09/21 21:00 ABG pO2 60.9 mm Hg (80.0-90.0) L 09/09/21 21:00 ABG HCO3 6.1 mmol/L (20.0-26.0) L 09/09/21 21:00 ABG O2 Saturation 81.1 % (95.0-99.0) L 09/09/21 21:00 ABG O2 Content 4.8 (0.0-44) 09/09/21 21:00 ABG Base Excess -21.5 mmol/L (-2.0-3.0) L 09/09/21 21:00 ABG Hemoglobin 5.0 gm/dl (14.0-18.0) L 09/09/21 21:00 ABG Carboxyhemoglobin 1.3 % (0.0-5.0) 09/09/21 21:00 ABG Methemoglobin 0.5 % (0.0-1.5) 09/09/21 21:00 Oxyhemoglobin 79.7 % (95.0-99.0) L 09/09/21 21:00 FiO2 28 % 09/09/21 21:00 Sodium 142 mmol/L (137-145) 09/20/21 05:25 Potassium 4.3 mmol/L (3.6-5.0) 09/20/21 05:25 Chloride 107.5 mmol/L (98-107) H 09/20/21 05:25 Carbon Dioxide 24 mmol/L (22-30) D 09/20/21 05:25 Anion Gap 15 mmol/L 09/20/21 05:25 BUN 47 mg/dL (9-20) H 09/20/21 05:25 Creatinine 7.7 mg/dL (0.8-1.3) H 09/20/21 05:25 Estimated GFR 9 ml/min 09/20/21 05:25 BUN/Creatinine Ratio 6 % 09/20/21 05:25 Glucose 83 mg/dL (75-100) 09/20/21 05:25 POC Glucose 147 mg/dL (70-105) H 09/10/21 07:35 Lactic Acid 2.10 mmol/L (0.7-2.0) H* 09/09/21 20:49 Calcium 7.6 mg/dL (8.4-10.2) L 09/20/21 05:25 Phosphorus 2.70 mg/dL (2.5-4.5) 09/16/21 05:23 Magnesium 1.60 mg/dL (1.7-2.3) L 09/17/21 08:00 Total Bilirubin 0.30 mg/dL (0.1-1.2) 09/09/21 18:53 AST 17 units/L (5-40) 09/09/21 18:53 ALT 19 units/L (7-56) 09/09/21 18:53 Alkaline Phosphatase 57 units/L (35-129) 09/09/21 18:53 Ammonia 39.0 umol/L (25-60) 09/09/21 19:02 Lactate Dehydrogenase 312 units/L (91-180) H 09/17/21 10:13 Total Creatine Kinase 1530 units/L (55-170) H 09/10/21 Unknown CK-MB (CK-2) 21.4 ng/mL (0.0-4.0) H 09/09/21 18:53 CK-MB (CK-2) Rel Index 1.2 (0-4) 09/09/21 18:53 Troponin T 0.158 ng/mL (0.00-0.029) H* 09/10/21 Unknown C-Reactive Protein 1.50 mg/dL (0.00-1.30) H 09/09/21 18:53 NT-Pro-B Natriuret Pep 6011 pg/mL (0-900) H 09/09/21 18:53 Serum Total Protein 5.4 g/dL (6.1-8.1) L 09/17/21 10:13 Total Protein 7.4 g/dL (6.3-8.2) 09/09/21 18:53 Albumin 2.5 g/dL (3.8-4.8) L 09/17/21 10:13 Albumin/Globulin Ratio 1.3 % 09/09/21 18:53 Rgfot-7-Hxjnkfnvn 0.5 g/dL (0.2-0.3) H 09/17/21 10:13 Tsjna-0-Peoaubtpf 1.0 g/dL (0.5-0.9) H 09/17/21 10:13 Beta Globulins 0.4 g/dL (0.2-0.5) 09/17/21 10:13 Gamma Globulins 0.8 g/dL (0.8-1.7) 09/17/21 10:13 Abnorm Protein Band 1 see below 09/17/21 10:13 PEP Interpretation see below H 09/17/21 10:13 Triglycerides 177 mg/dL (2-149) H 09/09/21 18:53 Cholesterol 170 mg/dL (50-199) 09/09/21 18:53 LDL Cholesterol Direct 107 mg/dL (50-130) 09/09/21 18:53 HDL Cholesterol 28 mg/dL (40-59) L 09/09/21 18:53 Cholesterol/HDL Ratio 6.07 % 09/09/21 18:53 Lipase 1198 units/L (13-60) H 09/09/21 18:53 Prostate Specific Ag 5.18 ng/mL (0.00-4.00) H 09/10/21 Unknown 25-OH Vitamin D Total 7 ng/mL (30-100) L 09/14/21 22:47 25-Hydroxy Vitamin D2 <4 ng/mL 09/14/21 22:47 25-Hydroxy Vitamin D3 7 ng/mL 09/14/21 22:47 PTH Intact 259.3 pg/mL (15-65) H 09/14/21 23:27 Urine Color Straw (Yellow) 09/09/21 11:35 Urine Turbidity Clear (Clear) 09/09/21 11:35 Urine pH 6.0 (5.0-7.0) 09/09/21 11:35 Ur Specific [place] 1.011 (1.003-1.030) 09/09/21 11:35 Urine Protein 100 mg/dl mg/dL (Negative) 09/09/21 11:35 Urine Glucose (UA) 50 mg/dL (Negative) 09/09/21 11:35 Urine Ketones Neg mg/dL (Negative) 09/09/21 11:35 Urine Blood Mod (Negative) 09/09/21 11:35 Urine Nitrite Neg (Negative) 09/09/21 11:35 Urine Bilirubin Neg (Negative) 09/09/21 11:35 Urine Urobilinogen < 2.0 mg/dL (<2.0) 09/09/21 11:35 Ur Leukocyte Esterase Neg (Negative) 09/09/21 11:35 Urine WBC (Auto) 2.0 /HPF (0.0-6.0) 09/09/21 11:35 Urine RBC (Auto) 11.0 /HPF (0.0-6.0) 09/09/21 11:35 Urine Total Volume 3750 ml 09/17/21 10:13 Urine Creatinine 18.3 mg/dL (0.1-20.0) 09/17/21 10:13 Height (in) 68.0 inches 09/17/21 10:13 Weight (lb) 130.0 lbs 09/17/21 10:13 Creatinine Clearance 7 09/17/21 10:13 Protein/Creatinin Ratio 1.78 09/10/21 11:35 Urine Total Protein 201 mg/dL (5-11.8) H 09/10/21 11:35 Urine Opiates Screen Presumptive negative 09/10/21 11:35 Urine Methadone Screen Presumptive negative 09/10/21 11:35 Ur Barbiturates Screen Presumptive negative 09/10/21 11:35 Ur Phencyclidine Scrn Presumptive negative 09/10/21 11:35 Ur Amphetamines Screen Presumptive negative 09/10/21 11:35 U Benzodiazepines Scrn Presumptive negative 09/10/21 11:35 Urine Cocaine Screen Presumptive negative 09/10/21 11:35 U Marijuana (THC) Screen Presumptive negative 09/10/21 11:35 Drugs of Abuse Note Disclamer 09/10/21 11:35 Plasma/Serum Alcohol < 0.01 % (0-0.07) 09/10/21 11:35 Coronavirus (PCR) Negative (Negative) 09/18/21 10:45 Hepatitis A IgM Ab Nonreactive (NonReactive) 09/09/21 20:55 Hep Bs Antigen Non-reactive (Negative) 09/09/21 20:55 Hep B Core IgM Ab Non-reactive (NonReactive) 09/09/21 20:55 Hepatitis C Antibody Non-reactive (NonReactive) 09/09/21 20:55 Blood Type O POSITIVE 09/15/21 07:50 Antibody Screen Negative 09/15/21 07:50 Direct Antiglob Test Negative 09/18/21 05:08 OMID, Poly Interpret Negative 09/18/21 05:08 Crossmatch See Detail 09/15/21 07:50 León/IV: Voiding Method Indwelling Catheter Active Medications - Current Medications Current Medications: Generic Name Dose Route Start Last Admin Trade Name Freq PRN Reason Stop Dose Admin Acetaminophen 650 mg 09/09/21 20:24 09/19/21 22:40 Acetaminophen 325 Mg Tab PO 650 mg Q4H PRN Administration Pain MILD(1-3)/Fever >100.5/LOCO Alteplase, Recombinant 2 mg 09/19/21 17:12 09/19/21 17:15 Alteplase 2 Mg Inj IV 2 mg MARTI PRN Administration LINE FLUSH Amlodipine Besylate 10 mg 09/11/21 12:00 09/19/21 09:36 Amlodipine 10 Mg Tab PO 10 mg QDAY LENY Administration Calcitriol 0.5 mcg 09/14/21 19:00 09/19/21 09:36 Calcitriol 0.5 Mcg Cap PO 0.5 mcg QDAY LENY Administration Carvedilol 6.25 mg 09/12/21 22:00 09/19/21 22:33 Carvedilol 6.25 Mg Tab PO 6.25 mg BID LENY Administration Epoetin Alex-epbx 8,000 unit 09/16/21 16:00 09/18/21 18:45 Epoetin Alex-Epbx 10,000 Unit/1 Ml Vial SUB-Q 8,000 unit MoWeFr LENY Administration Hydralazine HCl 10 mg 09/15/21 07:29 Hydralazine 20 Mg/1 Ml Inj IV Q4H PRN Hypertension Hydralazine HCl 50 mg 09/15/21 08:00 09/19/21 23:26 Hydralazine 25 Mg Tab PO 50 mg Q8H LENY Administration Sodium Chloride 1,000 mls @ 125 mls/hr 09/11/21 11:45 05/13/22 05:27 Nacl 0.9% 1000 Ml IV 75 mls/hr DIRECT LENY Administration Sodium Chloride 100 mls @ 999 mls/hr 09/14/21 09:58 Nacl 0.9% IV MARTI PRN Hypotension Sodium Chloride 100 mls @ 999 mls/hr 09/19/21 17:12 Nacl 0.9% IV MARTI PRN Hypotension Labetalol HCl 10 mg 09/11/21 11:09 Labetalol 20 Mg/4 Ml Inj IV Q4HR PRN sbp>160 Metoclopramide HCl 5 mg 09/14/21 09:00 Metoclopramide 10 Mg/2 Ml Inj IV Q8H PRN Nausea And Vomiting Morphine Sulfate 2 mg 09/09/21 20:24 09/10/21 06:00 Morphine 2 Mg/1 Ml Inj IV 2 mg Q4H PRN Administration Pain, Moderate (4-6) Ondansetron HCl 4 mg 09/09/21 20:24 09/11/21 03:43 Ondansetron 4 Mg/2 Ml Inj IV 4 mg Q3H PRN Administration Nausea And Vomiting Pantoprazole Sodium 40 mg 09/11/21 16:30 09/19/21 16:20 Pantoprazole 40 Mg Tab PO 40 mg BIDAC LENY Administration Sodium Chloride 10 ml 09/09/21 22:00 09/19/21 22:33 Sodium Chloride 0.9% 10 Ml Flush Syringe IV 10 ml BID LENY Administration Sodium Chloride 10 ml 09/09/21 20:24 Sodium Chloride 0.9% 10 Ml Flush Syringe IV PRN PRN LINE FLUSH Tamsulosin HCl 0.8 mg 09/11/21 12:00 09/19/21 09:37 Tamsulosin 0.4 Mg Cap PO 0.8 mg QDAY LENY Administration Nutrition/Malnutrition Assess - Dietary Evaluation Nutrition/Malnutrition Findings: Nutrition Notes Start: 09/10/21 15:32 Freq: Status: Active Protocol: Document 09/13/21 17:41 VANESSA (Rec: 09/13/21 17:53 VANESSA [id number]) Nutrition Notes Initial or Follow up Brief Note Current Diagnosis CKD(stage I-IV),Hypertension Other Pertinent Diagnosis ARF/CKD, Anuria, Epistaxis, Anemia, STEMI II, Acidosis, SOB, EtOH Abuse... Current Diet Cardiac -Renal- Diet (since L 09/11), D Suppl (since B 09/14 ). Height 5 ft 8 in Weight 58.967 kg [place] Body Weight (kg) 70.00 BMI 19.8 Weight change and time frame No body weight change reported in 3 days. Weight Status Appropriate Subjective/Other Information RD consult for routine F/U on Dietary Advancement. Pt now on PO diet. No reports available on Pt's PO intake of meals at the time, will assess at F/U. Pt on Room Air, O2 saturation @ 99%, according to Physical Assessment History notes. Percent of energy/protein needs met: Prescribed Cardiac -Renal- Diet provides for energy/ protein needs (2,072 Kcal/77 g ) during LOS; additionally, Dietary Supplements will compensate for possible poor or insufficient PO intake of meals with 850 Kcal and 38 g of protein. #1 Nutrition Diagnosis Increased nutrient needs ( specify in comment below) Diagnosis Progress(for reassessment Continues documentation) Nutrition Intervention Change Diet Order: Continue Cardiac -Renal- Diet. Add Supplement/Snack (indicate name/kcal Start 8 fl oz Nepro w/ /protein ) CARBSTEADY; BID. Provides kCal: 850 Provides Protein (gm) 38 Goal #1 Support, through dietary supplementation, hematological balance processes during LOS. Goal #2 Adjust the dietary intervention to better serve Pt's needs and clinical conditions during LOS. Goal #3 Maintain body weight within +/ -3% of admission body weight during LOS. Follow-Up By: 09/20/21 Additional Comments Continue monitoring food tolerance, %PO intake of meals , and BM.
--- NOTE | 2021-09-20 09:23 | Progress Note ---
Assessment and Plan Severe renal failure secondary to obstructive uropathy Hyperkalemia Metabolic acidosis Uremia Acute Anemia Hypocalcemia/Hyperparathyroidsm ? HUS Plan: no indication for HD today Monitoring for signs of renal recovery work up by hematology for possible HUS Assess need for HD on daily basis If no signs of renal recovery, pt will require perm catheter placement, likely Thursday, currently patient is without insurance and unlikely will be able to assign outpatient HD clinic CT AP showed BL hydronephrosis and bladder scan was positive for urinary retention. Urology consulted and placed león and recommended Flomax and to call them for león catheter removal On Flomax 0.8 mg po daily On Calcitriol Renally dose medications Strict I&O's daily León Catheter: Yes Subjective Date of service: 09/20/21 Principal diagnosis: anemia, acute kidney failure Interval history: tolerated HD yesterday Objective - Vital Signs Vital signs: Vital Signs - 12hr 09/19/21 09/20/21 23:00 05:03 Temperature 98.6 F Pulse Rate 93 H Respiratory 18 19 Rate Blood Pressure 142/78 O2 Sat by Pulse 97 98 Oximetry - Lab 09/20/21 05:25 09/20/21 05:25 Most recent lab results ABG pH 7.100 pH Units (7.350-7.450) L* 09/09/21 21:00 ABG pCO2 20.0 mm Hg 09/09/21 21:00 ABG pO2 60.9 mm Hg (80.0-90.0) L 09/09/21 21:00 ABG HCO3 6.1 mmol/L (20.0-26.0) L 09/09/21 21:00 ABG O2 Saturation 81.1 % (95.0-99.0) L 09/09/21 21:00 Calcium 7.6 mg/dL (8.4-10.2) L 09/20/21 05:25 Phosphorus 2.70 mg/dL (2.5-4.5) 09/16/21 05:23 Magnesium 1.60 mg/dL (1.7-2.3) L 09/17/21 08:00 Urine Creatinine 18.3 mg/dL (0.1-20.0) 09/17/21 10:13 Urine Total Protein 201 mg/dL (5-11.8) H 09/10/21 11:35 Medications & Allergies - Medications Allergies/Adverse Reactions: Allergies No Known Allergies Allergy (Unverified 01/17/17 01:04) Home Medications: Home Medications Medication Instructions Recorded Confirmed Last Taken Type Acetaminophen/Codeine [Tylenol #3] 1 tab PO Q6H PRN #7 tab 01/17/17 09/14/21 Unknown Rx Ibuprofen [Motrin] 600 mg PO Q8H PRN #15 tablet 01/17/17 09/14/21 Unknown Rx methOCARBAMOL [Robaxin TAB] 500 mg PO Q6H PRN #15 tablet 01/17/17 09/14/21 Unknown Rx Active Medications: Generic Name Dose Route Start Last Admin Trade Name Freq PRN Reason Stop Dose Admin Acetaminophen 650 mg 09/09/21 20:24 09/19/21 22:40 Acetaminophen 325 Mg Tab PO 650 mg Q4H PRN Administration Pain MILD(1-3)/Fever >100.5/LOCO Alteplase, Recombinant 2 mg 09/19/21 17:12 09/19/21 17:15 Alteplase 2 Mg Inj IV 2 mg MARTI PRN Administration LINE FLUSH Amlodipine Besylate 10 mg 09/11/21 12:00 09/19/21 09:36 Amlodipine 10 Mg Tab PO 10 mg QDAY LENY Administration Calcitriol 0.5 mcg 09/14/21 19:00 09/19/21 09:36 Calcitriol 0.5 Mcg Cap PO 0.5 mcg QDAY LENY Administration Carvedilol 6.25 mg 09/12/21 22:00 09/19/21 22:33 Carvedilol 6.25 Mg Tab PO 6.25 mg BID LENY Administration Epoetin Alex-epbx 8,000 unit 09/16/21 16:00 09/18/21 18:45 Epoetin Alex-Epbx 10,000 Unit/1 Ml Vial SUB-Q 8,000 unit MoWeFr LENY Administration Hydralazine HCl 10 mg 09/15/21 07:29 Hydralazine 20 Mg/1 Ml Inj IV Q4H PRN Hypertension Hydralazine HCl 50 mg 09/15/21 08:00 09/19/21 23:26 Hydralazine 25 Mg Tab PO 50 mg Q8H LENY Administration Sodium Chloride 1,000 mls @ 125 mls/hr 09/11/21 11:45 09/20/21 05:27 Nacl 0.9% 1000 Ml IV 75 mls/hr DIRECT LENY Administration Sodium Chloride 100 mls @ 999 mls/hr 09/14/21 09:58 Nacl 0.9% IV MARTI PRN Hypotension Sodium Chloride 100 mls @ 999 mls/hr 09/19/21 17:12 Nacl 0.9% IV MARTI PRN Hypotension Labetalol HCl 10 mg 09/11/21 11:09 Labetalol 20 Mg/4 Ml Inj IV Q4HR PRN sbp>160 Metoclopramide HCl 5 mg 09/14/21 09:00 Metoclopramide 10 Mg/2 Ml Inj IV Q8H PRN Nausea And Vomiting Morphine Sulfate 2 mg 09/09/21 20:24 09/10/21 06:00 Morphine 2 Mg/1 Ml Inj IV 2 mg Q4H PRN Administration Pain, Moderate (4-6) Ondansetron HCl 4 mg 09/09/21 20:24 09/11/21 03:43 Ondansetron 4 Mg/2 Ml Inj IV 4 mg Q3H PRN Administration Nausea And Vomiting Pantoprazole Sodium 40 mg 09/11/21 16:30 09/19/21 16:20 Pantoprazole 40 Mg Tab PO 40 mg BIDAC LENY Administration Sodium Chloride 10 ml 09/09/21 22:00 09/19/21 22:33 Sodium Chloride 0.9% 10 Ml Flush Syringe IV 10 ml BID LENY Administration Sodium Chloride 10 ml 09/09/21 20:24 Sodium Chloride 0.9% 10 Ml Flush Syringe IV PRN PRN LINE FLUSH Tamsulosin HCl 0.8 mg 09/11/21 12:00 09/19/21 09:37 Tamsulosin 0.4 Mg Cap PO 0.8 mg QDAY LENY Administration
[2021-09-20] MEDS: carvediloL 6.25 MG TAB PO SCH ×2 (11:09→21:29)
[2021-09-20] MEDS: CALCITRIOL 0.5 MCG CAP PO SCH (11:09)
[2021-09-20] MEDS: amLODIPine 10 MG TAB PO SCH (11:09)
[2021-09-20] MEDS: TAMSULOSIN 0.4 MG CAP PO SCH (11:09)
[2021-09-20] MEDS: hydrALAZINE 25 MG TAB PO SCH ×2 (11:12→16:52)
[2021-09-20] MEDS: PANTOPRAZOLE 40 MG TAB PO SCH ×2 (11:12→16:52)
--- NOTE | 2021-09-20 16:25 | Hem/Onc Progress Note ---
Subjective Date of service: 09/20/21 Interval history: Heme Data Review Patient was not seen 61yo male with complaints of progressive shortness of breath and nose bleeds Pmhx of chronic kidney disease In the emergency room patient was found to have hemoglobin of 4.8 and creatinine 48.4, lactic acid 2.80. HD initiated; followed by nephrology. Received multiple RBC transfusions this admission Hematology following for anemia. 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 The lab is making sure [id number] is collected STAT. PLAN: Follow [id number] test If [id number] >10% then confidently say HUS If HUS, would benefit from Soliris and supportive management with HD and transfusions Follow hemoglobin electrophoresis Continue Retacrit 8,000u 3 times a week Tranfuse 1 unit RBC whenever hct <23 Needs outpatient [place] heme referral Laboratory Last Values WBC 8.9 K/mm3 (4.5-11.0) 09/20/21 05:25 Hgb 7.5 gm/dl (11.8-15.2) L 09/20/21 05:25 Hct 23.8 % (35.5-45.6) L 09/20/21 05:25 Plt Count 258 K/mm3 (140-440) 09/20/21 05:25 PT 16.6 Sec. (12.2-14.9) H 09/09/21 18:53 INR 1.20 (0.87-1.13) H 09/09/21 18:53 D-Dimer 2203.38 ng/mlDDU (0-234) H 09/09/21 18:53 Creatinine 7.7 mg/dL (0.8-1.3) H 09/20/21 05:25 Lactate Dehydrogenase 312 units/L (91-180) H 09/17/21 10:13 Albumin/Globulin Ratio 1.3 % 09/09/21 18:53 Tczte-9-Erusdecac 0.5 g/dL (0.2-0.3) H 09/17/21 10:13 Okzki-2-Wshfqpgpr 1.0 g/dL (0.5-0.9) H 09/17/21 10:13 Beta Globulins 0.4 g/dL (0.2-0.5) 09/17/21 10:13 Gamma Globulins 0.8 g/dL (0.8-1.7) 09/17/21 10:13 Abnorm Protein Band 1 see below 09/17/21 10:13 PEP Interpretation see below H 09/17/21 10:13 Coronavirus (PCR) Negative (Negative) 09/18/21 10:45 Hepatitis A IgM Ab Nonreactive (NonReactive) 09/09/21 20:55 Hep Bs Antigen Non-reactive (Negative) 09/09/21 20:55 Hep B Core IgM Ab Non-reactive (NonReactive) 09/09/21 20:55 Hepatitis C Antibody Non-reactive (NonReactive) 09/09/21 20:55 Blood Type O POSITIVE 09/15/21 07:50 Antibody Screen Negative 09/15/21 07:50 Direct Antiglob Test Negative 09/18/21 05:08 OMID, Poly Interpret Negative 09/18/21 05:08 Crossmatch See Detail 09/15/21 07:50 Objective - Constitutional Vitals: Last Vital Signs Temp 99 F 09/20/21 12:30 Pulse 101 H 09/20/21 12:30 Resp 18 09/20/21 12:30 BP 137/81 09/20/21 12:30 Pulse Ox 96 09/20/21 11:00 - Labs Lab Results: Laboratory Results - last 24 hr 09/09/21 09/17/21 09/20/21 20:10 10:13 05:25 WBC 8.9 RBC 2.73 L Hgb 7.5 L Hct 23.8 L MCV 87 MCH 28 MCHC 32 RDW 16.0 H Plt Count 258 Lymph % (Auto) 13.4 [place] % (Auto) 15.0 H Eos % (Auto) 1.6 Baso % (Auto) 0.6 Lymph # (Auto) 1.2 [place] # (Auto) 1.3 H Eos # (Auto) 0.1 Baso # (Auto) 0.1 Seg Neutrophils % 69.4 Seg Neutrophils # 6.2 Sodium Potassium Chloride Carbon Dioxide Anion Gap BUN Creatinine Estimated GFR BUN/Creatinine Ratio Glucose Calcium Serum Total Protein 5.4 L Albumin 2.5 L Ywuyw-0-Vwtufovmb 0.5 H Xuxsj-3-Cefqenrjj 1.0 H Beta Globulins 0.4 Gamma Globulins 0.8 Abnorm Protein Band 1 see below PEP Interpretation see below H Crossmatch See Detail 09/20/21 05:25 WBC RBC Hgb Hct MCV MCH MCHC RDW Plt Count Lymph % (Auto) [place] % (Auto) Eos % (Auto) Baso % (Auto) Lymph # (Auto) [place] # (Auto) Eos # (Auto) Baso # (Auto) Seg Neutrophils % Seg Neutrophils # Sodium 142 Potassium 4.3 Chloride 107.5 H Carbon Dioxide 24 D Anion Gap 15 BUN 47 H Creatinine 7.7 H Estimated GFR 9 BUN/Creatinine Ratio 6 Glucose 83 Calcium 7.6 L Serum Total Protein Albumin Rfrbj-2-Ovdeagtli Isnqn-2-Xpuujydzl Beta Globulins Gamma Globulins Abnorm Protein Band 1 PEP Interpretation Crossmatch Medications & Allergies - Medications Allergies/Adverse Reactions: Allergies No Known Allergies Allergy (Unverified 01/17/17 01:04) Home Medications: Home Medications Medication Instructions Recorded Confirmed Last Taken Type Acetaminophen/Codeine [Tylenol #3] 1 tab PO Q6H PRN #7 tab 01/17/17 09/14/21 Unknown Rx Ibuprofen [Motrin] 600 mg PO Q8H PRN #15 tablet 01/17/17 09/14/21 Unknown Rx methOCARBAMOL [Robaxin TAB] 500 mg PO Q6H PRN #15 tablet 01/17/17 09/14/21 Unknown Rx Active Medications: Generic Name Dose Route Start Last Admin Trade Name Freq PRN Reason Stop Dose Admin Acetaminophen 650 mg 09/09/21 20:24 09/19/21 22:40 Acetaminophen 325 Mg Tab PO 650 mg Q4H PRN Administration Pain MILD(1-3)/Fever >100.5/LOCO Alteplase, Recombinant 2 mg 09/19/21 17:12 09/19/21 17:15 Alteplase 2 Mg Inj IV 2 mg MARTI PRN Administration LINE FLUSH Amlodipine Besylate 10 mg 09/11/21 12:00 09/20/21 11:09 Amlodipine 10 Mg Tab PO 10 mg QDAY LENY Administration Calcitriol 0.5 mcg 09/14/21 19:00 09/20/21 11:09 Calcitriol 0.5 Mcg Cap PO 0.5 mcg QDAY LENY Administration Carvedilol 6.25 mg 09/12/21 22:00 09/20/21 11:09 Carvedilol 6.25 Mg Tab PO 6.25 mg BID LENY Administration Epoetin Alex-epbx 8,000 unit 09/16/21 16:00 09/18/21 18:45 Epoetin Alex-Epbx 10,000 Unit/1 Ml Vial SUB-Q 8,000 unit MoWeFr LENY Administration Hydralazine HCl 10 mg 09/15/21 07:29 Hydralazine 20 Mg/1 Ml Inj IV Q4H PRN Hypertension Hydralazine HCl 50 mg 09/15/21 08:00 09/20/21 11:12 Hydralazine 25 Mg Tab PO 50 mg Q8H LENY Administration Sodium Chloride 1,000 mls @ 125 mls/hr 09/11/21 11:45 09/20/21 05:27 Nacl 0.9% 1000 Ml IV 75 mls/hr DIRECT LENY Administration Sodium Chloride 100 mls @ 999 mls/hr 09/14/21 09:58 Nacl 0.9% IV MARTI PRN Hypotension Sodium Chloride 100 mls @ 999 mls/hr 09/19/21 17:12 Nacl 0.9% IV MARTI PRN Hypotension Labetalol HCl 10 mg 09/11/21 11:09 Labetalol 20 Mg/4 Ml Inj IV Q4HR PRN sbp>160 Metoclopramide HCl 5 mg 09/14/21 09:00 Metoclopramide 10 Mg/2 Ml Inj IV Q8H PRN Nausea And Vomiting Morphine Sulfate 2 mg 09/09/21 20:24 09/10/21 06:00 Morphine 2 Mg/1 Ml Inj IV 2 mg Q4H PRN Administration Pain, Moderate (4-6) Ondansetron HCl 4 mg 09/09/21 20:24 09/11/21 03:43 Ondansetron 4 Mg/2 Ml Inj IV 4 mg Q3H PRN Administration Nausea And Vomiting Pantoprazole Sodium 40 mg 09/11/21 16:30 09/20/21 11:12 Pantoprazole 40 Mg Tab PO 40 mg BIDAC LENY Administration Sodium Chloride 10 ml 09/09/21 22:00 09/19/21 22:33 Sodium Chloride 0.9% 10 Ml Flush Syringe IV 10 ml BID LENY Administration Sodium Chloride 10 ml 09/09/21 20:24 Sodium Chloride 0.9% 10 Ml Flush Syringe IV PRN PRN LINE FLUSH Tamsulosin HCl 0.8 mg 09/11/21 12:00 09/20/21 11:09 Tamsulosin 0.4 Mg Cap PO 0.8 mg QDAY LENY Administration
[2021-09-20] MEDS: EPOETIN ALFA-EPBX 10,000 UNIT/1 ML VIAL SUB-Q SCH (17:43)
[2021-09-20] MEDS: MORPHINE 2 MG/1 ML INJ IV PRN (21:28)
[2021-09-21] MEDS: hydrALAZINE 25 MG TAB PO SCH ×3 (00:34→16:40)
[2021-09-21 06:53] LABS: Basophils # (Auto) 0.1 K/mm3 (0.0-0.1); Eosinophils # (Auto) 0.3 K/mm3 (0.0-0.4); Eosinophils % (Auto) 2.9 % (0.0-4.3); Hematocrit 22.7 % (35.5-45.6); Hemoglobin 7.4 gm/dl (11.8-15.2); Lymphocytes # (Auto) 1.3 K/mm3 (1.2-5.4); Lymphocytes % (Auto) 14.9 % (13.4-35.0); Mean Corpuscular HGB Conc 33 % (32-34); Mean Corpuscular Volume 87 fl (84-94); Monocytes # (Auto) 1.1 K/mm3 (0.0-0.8); Monocytes % (Auto) 12.7 % (0.0-7.3); Platelet Count 277 K/mm3 (140-440); Red Blood Count 2.62 M/mm3 (3.65-5.03); Red Cell Distribution Width 16.3 % (13.2-15.2)
[2021-09-21 07:08] LABS: Calcium 7.9 mg/dL (8.4-10.2)
[2021-09-21] MEDS: PANTOPRAZOLE 40 MG TAB PO SCH ×2 (08:18→16:40)
--- NOTE | 2021-09-21 09:17 | Progress Note ---
Assessment and Plan Severe renal failure secondary to obstructive uropathy Hyperkalemia Metabolic acidosis Uremia Acute Anemia Hypocalcemia/Hyperparathyroidsm ? HUS Plan: Cr and BUN cont rise off HD, good UOP. No indication for HD today Monitoring for signs of renal recovery work up by hematology for possible HUS Assess need for HD on daily basis If no signs of renal recovery, pt will require perm catheter placement, likely Thursday, currently patient is without insurance and unlikely will be able to assign outpatient HD clinic CT AP showed BL hydronephrosis and bladder scan was positive for urinary retention. Urology consulted and placed león and recommended Flomax and to call them for león catheter removal On Flomax 0.8 mg po daily On Calcitriol Renally dose medications Strict I&O's daily León Catheter: Yes Subjective Date of service: 09/21/21 Principal diagnosis: anemia, acute kidney failure Interval history: making urine Objective - Vital Signs Vital signs: Vital Signs - 12hr 09/20/21 09/20/21 09/21/21 21:29 23:00 00:34 Temperature Pulse Rate 109 H 98 H Respiratory 17 Rate Blood Pressure 130/85 170/78 O2 Sat by Pulse 99 Oximetry 09/21/21 04:33 Temperature 98.8 F Pulse Rate 97 H Respiratory 18 Rate Blood Pressure 139/80 O2 Sat by Pulse 99 Oximetry - Lab 09/21/21 05:24 09/21/21 05:24 Most recent lab results ABG pH 7.100 pH Units (7.350-7.450) L* 09/09/21 21:00 ABG pCO2 20.0 mm Hg 09/09/21 21:00 ABG pO2 60.9 mm Hg (80.0-90.0) L 09/09/21 21:00 ABG HCO3 6.1 mmol/L (20.0-26.0) L 09/09/21 21:00 ABG O2 Saturation 81.1 % (95.0-99.0) L 09/09/21 21:00 Calcium 7.9 mg/dL (8.4-10.2) L 09/21/21 05:24 Phosphorus 2.70 mg/dL (2.5-4.5) 09/16/21 05:23 Magnesium 1.60 mg/dL (1.7-2.3) L 09/17/21 08:00 Urine Creatinine 18.3 mg/dL (0.1-20.0) 09/17/21 10:13 Urine Total Protein 201 mg/dL (5-11.8) H 09/10/21 11:35 Medications & Allergies - Medications Allergies/Adverse Reactions: Allergies No Known Allergies Allergy (Unverified 01/17/17 01:04) Home Medications: Home Medications Medication Instructions Recorded Confirmed Last Taken Type Acetaminophen/Codeine [Tylenol #3] 1 tab PO Q6H PRN #7 tab 01/17/17 09/14/21 Unknown Rx Ibuprofen [Motrin] 600 mg PO Q8H PRN #15 tablet 01/17/17 09/14/21 Unknown Rx methOCARBAMOL [Robaxin TAB] 500 mg PO Q6H PRN #15 tablet 01/17/17 09/14/21 Unknown Rx Active Medications: Generic Name Dose Route Start Last Admin Trade Name Freq PRN Reason Stop Dose Admin Acetaminophen 650 mg 09/09/21 20:24 09/19/21 22:40 Acetaminophen 325 Mg Tab PO 650 mg Q4H PRN Administration Pain MILD(1-3)/Fever >100.5/LOCO Alteplase, Recombinant 2 mg 09/19/21 17:12 09/19/21 17:15 Alteplase 2 Mg Inj IV 2 mg MARTI PRN Administration LINE FLUSH Amlodipine Besylate 10 mg 09/11/21 12:00 09/20/21 11:09 Amlodipine 10 Mg Tab PO 10 mg QDAY LENY Administration Calcitriol 0.5 mcg 09/14/21 19:00 09/20/21 11:09 Calcitriol 0.5 Mcg Cap PO 0.5 mcg QDAY LENY Administration Carvedilol 6.25 mg 09/12/21 22:00 09/20/21 21:29 Carvedilol 6.25 Mg Tab PO 6.25 mg BID LENY Administration Epoetin Alex-epbx 8,000 unit 09/16/21 16:00 09/20/21 17:43 Epoetin Alex-Epbx 10,000 Unit/1 Ml Vial SUB-Q 8,000 unit MoWeFr LENY Administration Hydralazine HCl 10 mg 09/15/21 07:29 Hydralazine 20 Mg/1 Ml Inj IV Q4H PRN Hypertension Hydralazine HCl 50 mg 09/15/21 08:00 09/21/21 00:34 Hydralazine 25 Mg Tab PO 50 mg Q8H LENY Administration Sodium Chloride 1,000 mls @ 125 mls/hr 09/11/21 11:45 09/20/21 21:30 Nacl 0.9% 1000 Ml IV 75 mls/hr DIRECT LENY Administration Sodium Chloride 100 mls @ 999 mls/hr 09/14/21 09:58 Nacl 0.9% IV MARTI PRN Hypotension Sodium Chloride 100 mls @ 999 mls/hr 09/19/21 17:12 Nacl 0.9% IV MARTI PRN Hypotension Labetalol HCl 10 mg 09/11/21 11:09 Labetalol 20 Mg/4 Ml Inj IV Q4HR PRN sbp>160 Metoclopramide HCl 5 mg 09/14/21 09:00 Metoclopramide 10 Mg/2 Ml Inj IV Q8H PRN Nausea And Vomiting Morphine Sulfate 2 mg 09/09/21 20:24 09/20/21 21:28 Morphine 2 Mg/1 Ml Inj IV 2 mg Q4H PRN Administration Pain, Moderate (4-6) Ondansetron HCl 4 mg 09/09/21 20:24 09/11/21 03:43 Ondansetron 4 Mg/2 Ml Inj IV 4 mg Q3H PRN Administration Nausea And Vomiting Pantoprazole Sodium 40 mg 09/11/21 16:30 09/21/21 08:18 Pantoprazole 40 Mg Tab PO 40 mg BIDAC LENY Administration Sodium Chloride 10 ml 09/09/21 22:00 09/20/21 21:30 Sodium Chloride 0.9% 10 Ml Flush Syringe IV 10 ml BID LENY Administration Sodium Chloride 10 ml 09/09/21 20:24 Sodium Chloride 0.9% 10 Ml Flush Syringe IV PRN PRN LINE FLUSH Tamsulosin HCl 0.8 mg 09/11/21 12:00 09/20/21 11:09 Tamsulosin 0.4 Mg Cap PO 0.8 mg QDAY LENY Administration
[2021-09-21] MEDS: CALCITRIOL 0.5 MCG CAP PO SCH (09:42)
[2021-09-21] MEDS: carvediloL 6.25 MG TAB PO SCH ×2 (09:42→21:37)
[2021-09-21] MEDS: amLODIPine 10 MG TAB PO SCH (09:43)
[2021-09-21] MEDS: TAMSULOSIN 0.4 MG CAP PO SCH (09:43)
--- NOTE | 2021-09-21 13:14 | Progress Note ---
Assessment and Plan Assessment and plan: 61 years old male with past medical history of chronic kidney disease was brought to the hospital because of progressive shortness of breath as stated with vomiting and bleeding from nose for 1 day. Patient is a very poor historian. In the emergency room patient is found to have hemoglobin of 4.8 and hematocrit 14.9 also patient is found to have potassium of 7.1, bicarb 4, anion gap 54, BUN to 38 and creatinine 48.4, lactic acid 2.80. ABG shows pH 7.100, PCO2 20+0, PO2 60.9, bicarb 6.1. The patient was admitted to critical care and underwent emergent hemodialysis. Acute kidney injury due to post renal obstruction Metabolic Acidosis (resolving) Lactic Acidosis 2.8-> 2.1 (resolved) Acute heart failure with preserved ejection fraction (ef 45-50%) Hyperkalemia (resolved) Hypokalemia Uremia (resolved) Urinary retention (resolving) Hypocalcemia Prostateamegaly - psa elevated to 5.18 - monitor electrolytes on serial renal profile - strict I/O, close UOP monitoring - avoid nephrotoxins, renally adjust medications Acute hypoxic respiratory failure (resolved) - O2 sat as low as 56% on admission, currently on room air satting greater than 92% - cxr: no acute findings. - pulmonology following Acute metabolic encephalopathy (resolved) - likely due to uremia - improving hypertension - elevated BP - coreg dose increased, hold linsey-i due to renal fx. Anemia s/p prbcs (stable) likely secondary epistatixis and renal insufficiency. R/o hemoglobinopathy, hemolytic anemia Unable to evaluate iron studies post RBC transfusions Epistaxis (appears resolved) - hx of recurrent epistaxis per son, patient had increased uncontrolled bleeding for 1 day. No prior hx of GI bleed or reported blood in stool. Uremia could have precipitated bleed. - Hgb: 4.8 on admission, s/p 4 units prbc, now 8's - transfuse prn Hgb< 7. - GI consulted due to concern for GI bleed on admission - protonix 40 mg po bid - unclear if this is truly GI source Type II myocardial infarction (resolved) - supply demand from anemia in the setting TIFFANIE - serial troponins ordered, downtrending. -cardiology following, no intervention at this time. EtOH use disorder person patient stopped a few weeks ago. Sepsis ruled out, doubt infectious etiology. Hospital Course: 09/10: Improved on bedside encounter. Urology placed león catheter. Plan for nephrology to complete HD today. Hgb improved to 8.3, suspect anemia is purely from epistaxis, unclear if there was truly was a GI source. Will continue to monitor for other source of bleed. GI consulted, will follow recommendations. 09/11: hemoglobin stable. patient on encounter states he had recurrent epistaxis bleed leading up to hospitalization. Hgb stable this AM. Renal indices improved on bmp. Urine output 1000 cc yesterday. Troponin downtrending. D/w Dr. Juan A Martin, will d/c protonix IV, start on protonix 40 mg po bid. Transfer to floor bed. 09/12: Doing well on encounter today. on room air saturating 98%. Renal indices improving. León output approx: 2500 cc yday. [place] tingued urine noted, clearing up. hemoglobin 8.1, VSS. No plan for HD today per nephrology. We will continue to follow along for hemodialysis plan moving forward and nephrology final impression on renal prognosis. Anticipate d/c in next 24-48 hrs depending on this. Patient will likely need to be discharged with León catheter and in structions to follow-up with urology as an outpatient. 09/13: Patient remains clinically stable. Renal function appears to slightly worsened today. Nephrology noted the slight worsening. Will reevaluate in a.m. Patient undergoing 24-hour urine collection. From respiratory standpoint patient is stable acute respiratory failure secondary to fluid overload has resolved. Plan discussed with the patient in detail he verbalized understanding. 15 minutes counseling provided to the patient about continued cessation of EtOH use on lifestyle preventive care measures. We will monitor potassium level and slight of renal failure. 09/14: Patient seen and examined this morning hypokalemia persist also hypocalcemia we will replace both potassium and calcium. Patient advised by medical records assistant that he will be having dialysis today as creatinine is gradually creeping back up to 11.2 today. León remains in place with good urine output. Patient understands he will have to go home with a León and follow-up with urologist. Based on discussion with nephrology will determine if her permacath needs to be placed prior to discharge. I have also updated the and answered all questions. At this time awaiting renal recovery if possible. We will continue to monitor H&H 09/15: Patient seen and examined, no new complaints, review of labs shows improvement of renal function following HD yesterday, however HGB still decreasing. Will order a unit of PRBC and Hematology consultation. Further management and discharge plan depends on renal recovery and Nephrology input. Patient updated. 09/16: Patient seen and examined this morning. some response to blood transfusion noted. Reached out to nephrology to see if we should start planning for outpatient dialysis for this patient with the upward trend of creatinine following 2 days after dialysis. Appears the patient will get hemodialyzed again today. Overall concern for this patient is that he is got multiple issues pointing towards a poor renal resolution without dialysis outpatient. Will await nephrology input. He has had 4 units of packed red blood cell. Hemoglobin is at 7.7 09/17: Nephrology to hold hemodialysis today and monitor for renal recovery off hemodialysis. IV fluid increased. Follow-up 24-hour urine collection. Patient was initiated on hemodialysis on 09/10/21 due to severe renal failure coupled with severe Hyperkalemia and Acidosis. CT AP showed BL hydronephrosis and bladder scan was positive for urinary retention. Urology consulted and placed león and recommended Flomax and to call them for león catheter removal. Continue on Flomax 0.8 mg daily. Monitor post obstructive diuresis closely. Renally dose medications. Avoid nephrotoxic agents. Strict I&O's daily. Obtain daily weights. Assess dialysis needs daily. Follow-up labs LDH, retic, hemoglobin electrophoresis, spep. Hematology started Ferrlecit. Transfuse for hemoglobin less than 7 09/18: Hematology suspects hemolytic uremic syndrome. Follow-up labs for Carole, [id number] test , If [id number] >10% then confidently say HUS. Also follow- up hemoglobin electrophoresis and SPEP. Continue Retacrit 3 times a week and Ferrlecit. Patient will need outpatient [place] hematology referral. Nephrology held HD on 09/17 to monitor for renal recovery without hemodialysis. Awaiting final decision on HD needs on an outpatient basis. Discharge planners will contact Brian and Michael to discuss james care, as patient is self-pay, at this time. \ 09/19: Patient seen in hemodialysis. Continue to follow-up serologies. [facility] is evaluating pt for possible HUS. If HUS, pt may require plasmapheresis. Will follow up HemOnc work up. Follow-up hemoglobin electrophoresis and SPEP. Patient will need outpatient [place] hematology referral. 09/20: Follow-up labs for Carole, [id number] test , If >10% then co nfidently say HUS. Also follow-up hemoglobin electrophoresis and SPEP. Continue Retacrit 3 times a week and Ferrlecit. Patient will need outpatient [place] hematology referral. Patient had hemodialysis yesterday for clearance only. Patient has had good UOP. Continue to monitor for signs of renal recovery. 09/21: Nephrology reports BUN and creatinine continue to rise off hemodialysis however good urinary output. No indication for hemodialysis today. Continue to monitor for signs of renal recovery. Work-up for possible HUS per hematology. Continue Flomax, Calcitrol, Retacrit and Ferrlecit. Strict I&O's daily History Interval history: No new issues overnight Hospitalist Physical - Constitutional Vitals: Temp Pulse Resp BP Pulse Ox 98.8 F 97 H 18 139/79 98 09/21/21 04:33 09/21/21 04:33 09/21/21 04:33 09/21/21 09:47 09/21/21 11:32 General appearance: Present: no acute distress - EENT Eyes: Present: PERRL, EOM intact ENT: hearing intact, clear oral mucosa, dentition normal - Neck Neck: Present: supple, normal ROM - Respiratory Respiratory effort: normal Respiratory: bilateral: CTA - Cardiovascular Rhythm: regular Heart Sounds: Present: S1 & S2. Absent: gallop, rub - Extremities Extremities: no ischemia, No edema, Full ROM - Abdominal General gastrointestinal: soft, non-tender, non-distended, normal bowel sounds - Integumentary Integumentary: Present: clear, warm, dry - Neurologic Neurologic: CNII-XII intact, moves all extremities HEART Score - HEART Score Troponin: Troponin T 0.158 ng/mL (0.00-0.029) H* 09/10/21 Unknown Results - Labs CBC & Chem 7: 09/21/21 05:24 09/21/21 05:24 Labs: Laboratory Last Values WBC 8.8 K/mm3 (4.5-11.0) 09/21/21 05:24 RBC 2.62 M/mm3 (3.65-5.03) L 09/21/21 05:24 Hgb 7.4 gm/dl (11.8-15.2) L 09/21/21 05:24 Hct 22.7 % (35.5-45.6) L 09/21/21 05:24 MCV 87 fl (84-94) 09/21/21 05:24 MCH 28 pg (28-32) 09/21/21 05:24 MCHC 33 % (32-34) 09/21/21 05:24 RDW 16.3 % (13.2-15.2) H 09/21/21 05:24 Plt Count 277 K/mm3 (140-440) 09/21/21 05:24 Lymph % (Auto) 14.9 % (13.4-35.0) 09/21/21 05:24 [place] % (Auto) 12.7 % (0.0-7.3) H 09/21/21 05:24 Eos % (Auto) 2.9 % (0.0-4.3) 09/21/21 05:24 Baso % (Auto) 1.0 % (0.0-1.8) 09/21/21 05:24 Lymph # (Auto) 1.3 K/mm3 (1.2-5.4) 09/21/21 05:24 [place] # (Auto) 1.1 K/mm3 (0.0-0.8) H 09/21/21 05:24 Eos # (Auto) 0.3 K/mm3 (0.0-0.4) 09/21/21 05:24 Baso # (Auto) 0.1 K/mm3 (0.0-0.1) 09/21/21 05:24 Add Manual Diff Complete 09/18/21 05:08 Total Counted 100 09/18/21 05:08 Seg Neutrophils % 68.5 % (40.0-70.0) 09/21/21 05:24 Seg Neuts % (Manual) 73.0 % (40.0-70.0) H 09/18/21 05:08 Band Neutrophils % 0 % 09/18/21 05:08 Lymphocytes % (Manual) 14.0 % (13.4-35.0) 09/18/21 05:08 Reactive Lymphs % (Man) 0 % 09/18/21 05:08 Monocytes % (Manual) 10.0 % (0.0-7.3) H 09/18/21 05:08 Eosinophils % (Manual) 3.0 % (0.0-4.3) 09/18/21 05:08 Basophils % (Manual) 0 % (0.0-1.8) 09/18/21 05:08 Metamyelocytes % 0 % 09/18/21 05:08 Myelocytes % 0 % 09/18/21 05:08 Promyelocytes % 0 % 09/18/21 05:08 Blast Cells % 0 % 09/18/21 05:08 Nucleated RBC % Not Reportable 09/18/21 05:08 Seg Neutrophils # 6.0 K/mm3 (1.8-7.7) 09/21/21 05:24 Seg Neutrophils # Man 6.5 K/mm3 (1.8-7.7) 09/18/21 05:08 Band Neutrophils # 0.0 K/mm3 09/18/21 05:08 Lymphocytes # (Manual) 1.2 K/mm3 (1.2-5.4) 09/18/21 05:08 Abs React Lymphs (Man) 0.0 K/mm3 09/18/21 05:08 Monocytes # (Manual) 0.9 K/mm3 (0.0-0.8) H 09/18/21 05:08 Eosinophils # (Manual) 0.3 K/mm3 (0.0-0.4) 09/18/21 05:08 Basophils # (Manual) 0.0 K/mm3 (0.0-0.1) 09/18/21 05:08 Metamyelocytes # 0.0 K/mm3 09/18/21 05:08 Myelocytes # 0.0 K/mm3 09/18/21 05:08 Promyelocytes # 0.0 K/mm3 09/18/21 05:08 Blast Cells # 0.0 K/mm3 09/18/21 05:08 WBC Morphology Not Reportable 09/18/21 05:08 Hypersegmented Neuts Not Reportable 09/18/21 05:08 Hyposegmented Neuts Not Reportable 09/18/21 05:08 Hypogranular Neuts Not Reportable 09/18/21 05:08 Smudge Cells Not Reportable 09/18/21 05:08 Toxic Granulation Rare 09/18/21 05:08 Toxic Vacuolation Not Reportable 09/18/21 05:08 Dohle Bodies Not Reportable 09/18/21 05:08 Pelger-Huet Anomaly Not Reportable 09/18/21 05:08 Francisco Javier Rods Not Reportable 09/18/21 05:08 Platelet Estimate Consistent w auto 09/18/21 05:08 Clumped Platelets Not Reportable 09/18/21 05:08 Plt Clumps, EDTA Not Reportable 09/18/21 05:08 Large Platelets Not Reportable 09/18/21 05:08 Giant Platelets Not Reportable 09/18/21 05:08 Platelet Satelliting Not Reportable 09/18/21 05:08 Plt Morphology Comment Not Reportable 09/18/21 05:08 RBC Morphology Not Reportable 09/18/21 05:08 Dimorphic RBCs Not Reportable 09/18/21 05:08 Polychromasia Few 09/18/21 05:08 Hypochromasia Not Reportable 09/18/21 05:08 Poikilocytosis Not Reportable 09/18/21 05:08 Anisocytosis Not Reportable 09/18/21 05:08 Microcytosis Not Reportable 09/18/21 05:08 Macrocytosis Few 09/18/21 05:08 Spherocytes Not Reportable 09/18/21 05:08 Pappenheimer Bodies Not Reportable 09/18/21 05:08 Sickle Cells Not Reportable 09/18/21 05:08 Target Cells Not Reportable 09/18/21 05:08 Tear Drop Cells Not Reportable 09/18/21 05:08 Ovalocytes Not Reportable 09/18/21 05:08 Stomatocytes Rare 09/10/21 Unknown Helmet Cells Not Reportable 09/18/21 05:08 [place] Bodies Not Reportable 09/18/21 05:08 [place] Rings Not Reportable 09/18/21 05:08 [place] Cells Not Reportable 09/18/21 05:08 Bite Cells Not Reportable 09/18/21 05:08 Crenated Cell Not Reportable 09/18/21 05:08 Elliptocytes Not Reportable 09/18/21 05:08 Acanthocytes (Spur) Not Reportable 09/18/21 05:08 Rouleaux Not Reportable 09/18/21 05:08 Hemoglobin C Crystals Not Reportable 09/18/21 05:08 Schistocytes Not Reportable 09/18/21 05:08 Malaria parasites Not Reportable 09/18/21 05:08 Percent Retic 2.51 % (0.78-2.58) 09/17/21 10:13 Jose Bodies Not Reportable 09/18/21 05:08 Hem Pathologist Commnt No 09/18/21 05:08 PT 16.6 Sec. (12.2-14.9) H 09/09/21 18:53 INR 1.20 (0.87-1.13) H 09/09/21 18:53 D-Dimer 2203.38 ng/mlDDU (0-234) H 09/09/21 18:53 ABG pH 7.100 pH Units (7.350-7.450) L* 09/09/21 21:00 ABG pCO2 20.0 mm Hg 09/09/21 21:00 ABG pO2 60.9 mm Hg (80.0-90.0) L 09/09/21 21:00 ABG HCO3 6.1 mmol/L (20.0-26.0) L 09/09/21 21:00 ABG O2 Saturation 81.1 % (95.0-99.0) L 09/09/21 21:00 ABG O2 Content 4.8 (0.0-44) 09/09/21 21:00 ABG Base Excess -21.5 mmol/L (-2.0-3.0) L 09/09/21 21:00 ABG Hemoglobin 5.0 gm/dl (14.0-18.0) L 09/09/21 21:00 ABG Carboxyhemoglobin 1.3 % (0.0-5.0) 09/09/21 21:00 ABG Methemoglobin 0.5 % (0.0-1.5) 09/09/21 21:00 Oxyhemoglobin 79.7 % (95.0-99.0) L 09/09/21 21:00 FiO2 28 % 09/09/21 21:00 Sodium 144 mmol/L (137-145) 09/21/21 05:24 Potassium 4.2 mmol/L (3.6-5.0) 09/21/21 05:24 Chloride 107.4 mmol/L (98-107) H 09/21/21 05:24 Carbon Dioxide 20 mmol/L (22-30) L 09/21/21 05:24 Anion Gap 21 mmol/L 09/21/21 05:24 BUN 58 mg/dL (9-20) H 09/21/21 05:24 Creatinine 8.5 mg/dL (0.8-1.3) H 09/21/21 05:24 Estimated GFR 8 ml/min 09/21/21 05:24 BUN/Creatinine Ratio 7 % 09/21/21 05:24 Glucose 112 mg/dL (75-100) H 09/21/21 05:24 POC Glucose 147 mg/dL (70-105) H 09/10/21 07:35 Lactic Acid 2.10 mmol/L (0.7-2.0) H* 09/09/21 20:49 Calcium 7.9 mg/dL (8.4-10.2) L 09/21/21 05:24 Phosphorus 2.70 mg/dL (2.5-4.5) 09/16/21 05:23 Magnesium 1.60 mg/dL (1.7-2.3) L 09/17/21 08:00 Total Bilirubin 0.30 mg/dL (0.1-1.2) 09/09/21 18:53 AST 17 units/L (5-40) 09/09/21 18:53 ALT 19 units/L (7-56) 09/09/21 18:53 Alkaline Phosphatase 57 units/L (35-129) 09/09/21 18:53 Ammonia 39.0 umol/L (25-60) 09/09/21 19:02 Lactate Dehydrogenase 312 units/L (91-180) H 09/17/21 10:13 Total Creatine Kinase 1530 units/L (55-170) H 09/10/21 Unknown CK-MB (CK-2) 21.4 ng/mL (0.0-4.0) H 09/09/21 18:53 CK-MB (CK-2) Rel Index 1.2 (0-4) 09/09/21 18:53 Troponin T 0.158 ng/mL (0.00-0.029) H* 09/10/21 Unknown C-Reactive Protein 1.50 mg/dL (0.00-1.30) H 09/09/21 18:53 NT-Pro-B Natriuret Pep 6011 pg/mL (0-900) H 09/09/21 18:53 Serum Total Protein 5.4 g/dL (6.1-8.1) L 09/17/21 10:13 Total Protein 7.4 g/dL (6.3-8.2) 09/09/21 18:53 Albumin 2.5 g/dL (3.8-4.8) L 09/17/21 10:13 Albumin/Globulin Ratio 1.3 % 09/09/21 18:53 Bdwyp-5-Sfpmosqgl 0.5 g/dL (0.2-0.3) H 09/17/21 10:13 Yfgut-4-Kjqgkqprc 1.0 g/dL (0.5-0.9) H 09/17/21 10:13 Beta Globulins 0.4 g/dL (0.2-0.5) 09/17/21 10:13 Gamma Globulins 0.8 g/dL (0.8-1.7) 09/17/21 10:13 Abnorm Protein Band 1 see below 09/17/21 10:13 PEP Interpretation see below H 09/17/21 10:13 Triglycerides 177 mg/dL (2-149) H 09/09/21 18:53 Cholesterol 170 mg/dL (50-199) 09/09/21 18:53 LDL Cholesterol Direct 107 mg/dL (50-130) 09/09/21 18:53 HDL Cholesterol 28 mg/dL (40-59) L 09/09/21 18:53 Cholesterol/HDL Ratio 6.07 % 09/09/21 18:53 Lipase 1198 units/L (13-60) H 09/09/21 18:53 Prostate Specific Ag 5.18 ng/mL (0.00-4.00) H 09/10/21 Unknown 25-OH Vitamin D Total 7 ng/mL (30-100) L 09/14/21 22:47 25-Hydroxy Vitamin D2 <4 ng/mL 09/14/21 22:47 25-Hydroxy Vitamin D3 7 ng/mL 09/14/21 22:47 PTH Intact 259.3 pg/mL (15-65) H 09/14/21 23:27 Urine Color Straw (Yellow) 09/09/21 11:35 Urine Turbidity Clear (Clear) 09/09/21 11:35 Urine pH 6.0 (5.0-7.0) 09/09/21 11:35 Ur Specific [place] 1.011 (1.003-1.030) 09/09/21 11:35 Urine Protein 100 mg/dl mg/dL (Negative) 09/09/21 11:35 Urine Glucose (UA) 50 mg/dL (Negative) 09/09/21 11:35 Urine Ketones Neg mg/dL (Negative) 09/09/21 11:35 Urine Blood Mod (Negative) 09/09/21 11:35 Urine Nitrite Neg (Negative) 09/09/21 11:35 Urine Bilirubin Neg (Negative) 09/09/21 11:35 Urine Urobilinogen < 2.0 mg/dL (<2.0) 09/09/21 11:35 Ur Leukocyte Esterase Neg (Negative) 09/09/21 11:35 Urine WBC (Auto) 2.0 /HPF (0.0-6.0) 09/09/21 11:35 Urine RBC (Auto) 11.0 /HPF (0.0-6.0) 09/09/21 11:35 Urine Total Volume 3750 ml 09/17/21 10:13 Urine Creatinine 18.3 mg/dL (0.1-20.0) 09/17/21 10:13 Height (in) 68.0 inches 09/17/21 10:13 Weight (lb) 130.0 lbs 09/17/21 10:13 Creatinine Clearance 7 09/17/21 10:13 Protein/Creatinin Ratio 1.78 09/10/21 11:35 Urine Total Protein 201 mg/dL (5-11.8) H 09/10/21 11:35 Urine Opiates Screen Presumptive negative 09/10/21 11:35 Urine Methadone Screen Presumptive negative 09/10/21 11:35 Ur Barbiturates Screen Presumptive negative 09/10/21 11:35 Ur Phencyclidine Scrn Presumptive negative 09/10/21 11:35 Ur Amphetamines Screen Presumptive negative 09/10/21 11:35 U Benzodiazepines Scrn Presumptive negative 09/10/21 11:35 Urine Cocaine Screen Presumptive negative 09/10/21 11:35 U Marijuana (THC) Screen Presumptive negative 09/10/21 11:35 Drugs of Abuse Note Disclamer 09/10/21 11:35 Plasma/Serum Alcohol < 0.01 % (0-0.07) 09/10/21 11:35 Coronavirus (PCR) Negative (Negative) 09/18/21 10:45 Hepatitis A IgM Ab Nonreactive (NonReactive) 09/09/21 20:55 Hep Bs Antigen Non-reactive (Negative) 09/09/21 20:55 Hep B Core IgM Ab Non-reactive (NonReactive) 09/09/21 20:55 Hepatitis C Antibody Non-reactive (NonReactive) 09/09/21 20:55 Blood Type O POSITIVE 09/15/21 07:50 Antibody Screen Negative 09/15/21 07:50 Direct Antiglob Test Negative 09/18/21 05:08 OMID, Poly Interpret Negative 09/18/21 05:08 Crossmatch See Detail 09/15/21 07:50 León/IV: Voiding Method Indwelling Catheter Active Medications - Current Medications Current Medications: Generic Name Dose Route Start Last Admin Trade Name Freq PRN Reason Stop Dose Admin Acetaminophen 650 mg 09/09/21 20:24 09/19/21 22:40 Acetaminophen 325 Mg Tab PO 650 mg Q4H PRN Administration Pain MILD(1-3)/Fever >100.5/LOCO Alteplase, Recombinant 2 mg 09/19/21 17:12 09/19/21 17:15 Alteplase 2 Mg Inj IV 2 mg MARTI PRN Administration LINE FLUSH Amlodipine Besylate 10 mg 09/11/21 12:00 09/21/21 09:43 Amlodipine 10 Mg Tab PO 10 mg QDAY LENY Administration Calcitriol 0.5 mcg 09/14/21 19:00 09/21/21 09:42 Calcitriol 0.5 Mcg Cap PO 0.5 mcg QDAY LENY Administration Carvedilol 6.25 mg 09/12/21 22:00 09/21/21 09:42 Carvedilol 6.25 Mg Tab PO 6.25 mg BID LENY Administration Epoetin Alex-epbx 8,000 unit 09/16/21 16:00 09/20/21 17:43 Epoetin Alex-Epbx 10,000 Unit/1 Ml Vial SUB-Q 8,000 unit MoWeFr LENY Administration Hydralazine HCl 10 mg 09/15/21 07:29 Hydralazine 20 Mg/1 Ml Inj IV Q4H PRN Hypertension Hydralazine HCl 50 mg 09/15/21 08:00 09/21/21 09:47 Hydralazine 25 Mg Tab PO 50 mg Q8H LENY Administration Sodium Chloride 1,000 mls @ 125 mls/hr 09/11/21 11:45 09/20/21 21:30 Nacl 0.9% 1000 Ml IV 75 mls/hr DIRECT LENY Administration Sodium Chloride 100 mls @ 999 mls/hr 09/14/21 09:58 Nacl 0.9% IV MARTI PRN Hypotension Sodium Chloride 100 mls @ 999 mls/hr 09/19/21 17:12 Nacl 0.9% IV MARTI PRN Hypotension Labetalol HCl 10 mg 09/11/21 11:09 Labetalol 20 Mg/4 Ml Inj IV Q4HR PRN sbp>160 Metoclopramide HCl 5 mg 09/14/21 09:00 Metoclopramide 10 Mg/2 Ml Inj IV Q8H PRN Nausea And Vomiting Morphine Sulfate 2 mg 09/09/21 20:24 09/20/21 21:28 Morphine 2 Mg/1 Ml Inj IV 2 mg Q4H PRN Administration Pain, Moderate (4-6) Ondansetron HCl 4 mg 09/09/21 20:24 09/11/21 03:43 Ondansetron 4 Mg/2 Ml Inj IV 4 mg Q3H PRN Administration Nausea And Vomiting Pantoprazole Sodium 40 mg 09/11/21 16:30 09/21/21 08:18 Pantoprazole 40 Mg Tab PO 40 mg BIDAC LENY Administration Sodium Chloride 10 ml 09/09/21 22:00 09/21/21 09:43 Sodium Chloride 0.9% 10 Ml Flush Syringe IV 10 ml BID LENY Administration Sodium Chloride 10 ml 09/09/21 20:24 Sodium Chloride 0.9% 10 Ml Flush Syringe IV PRN PRN LINE FLUSH Tamsulosin HCl 0.8 mg 09/11/21 12:00 09/21/21 09:43 Tamsulosin 0.4 Mg Cap PO 0.8 mg QDAY LENY Administration Nutrition/Malnutrition Assess - Dietary Evaluation Nutrition/Malnutrition Findings: Nutrition Notes Start: 09/10/21 15:32 Freq: Status: Active Protocol: Document 09/20/21 13:41 NHALL (Rec: 09/20/21 13:48 KIROD [id number]) Nutrition Notes Initial or Follow up Reassessment Current Diagnosis Acute Kidney Injury, Hypertension,Heart Failure Other Pertinent Diagnosis Obstructive uropathy, Anemia, EtOH dependence Current Diet Renal/Cardiac + Nepro BID Labs/Tests BUN 47 Cr 7.7 Pertinent Medications Calcitriol, Epoetin, NS at 125ml/hr Height 5 ft 8 in Weight 87.5 kg [place] Body Weight (kg) 70.00 BMI 29.3 Weight change and time frame Pt says current wt is accurate Weight Status Overweight Subjective/Other Information Pt reports very good appetite; he has consumed 89% of meals since last assessment. He drinks the Nepro shakes as well. Per nephrology, no need for HD today; pt to be assessed for HD needs on a daily basis. Percent of energy/protein needs met: 100% energy and pro (includes ONS) Burn Absent Trauma Absent #1 Nutrition Diagnosis Increased nutrient needs ( specify in comment below) Diagnosis Progress(for reassessment Continues documentation) Is patient on ventilator? No Is Patient Ambulatory and/or Out of Bed Yes REE-([place] Jeor-ambulatory/OOB) [ [id number] [id number]] Calculation Used for Recommendations [place] Jeor Additional Notes Pro needs >1.2g/kg: >105g/day Fluid needs 1ml/kcal Nutrition Intervention Change Diet Order: Continue current diet order Add Supplement/Snack (indicate name/kcal Nepro BID /protein ) Provides kCal: 850 Provides Protein (gm) 38 Goal #1 PO intake of meals plus ONS to continue to meet at least 75% energy and pro needs Revisit per MD consult or patient Sign Off request:
[2021-09-21] MEDS: SODIUM CHLORIDE 0.9% 1000 ML 1,000 ML IV SCH ×2 (16:41→21:38)
[2021-09-22] MEDS: hydrALAZINE 25 MG TAB PO SCH ×3 (00:33→17:44)
[2021-09-22 05:50] LABS: Basophils # (Auto) 0.1 K/mm3 (0.0-0.1); Basophils % (Auto) 1.2 % (0.0-1.8); Eosinophils # (Auto) 0.2 K/mm3 (0.0-0.4); Eosinophils % (Auto) 2.9 % (0.0-4.3); Hematocrit 22.3 % (35.5-45.6); Hemoglobin 7.5 gm/dl (11.8-15.2); Lymphocytes # (Auto) 1.3 K/mm3 (1.2-5.4); Lymphocytes % (Auto) 16.4 % (13.4-35.0); Mean Corpuscular HGB Conc 34 % (32-34); Mean Corpuscular Volume 86 fl (84-94); Monocytes # (Auto) 1.1 K/mm3 (0.0-0.8); Monocytes % (Auto) 12.9 % (0.0-7.3); Platelet Count 292 K/mm3 (140-440); Red Cell Distribution Width 16.5 % (13.2-15.2)
[2021-09-22] MEDS: amLODIPine 10 MG TAB PO SCH (09:15)
[2021-09-22] MEDS: carvediloL 6.25 MG TAB PO SCH ×2 (09:15→21:48)
[2021-09-22] MEDS: TAMSULOSIN 0.4 MG CAP PO SCH (09:15)
[2021-09-22] MEDS: PANTOPRAZOLE 40 MG TAB PO SCH ×2 (09:15→17:44)
--- NOTE | 2021-09-22 09:45 | Progress Note ---
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 Urology consulted and placed león and recommended Flomax and to call them for león catheter removal On Flomax 0.8 mg po daily On Calcitriol Renally dose medications Strict I&O's daily León Catheter: Yes Subjective Date of service: 09/22/21 Principal diagnosis: anemia, acute kidney failure Interval history: no over night events Objective - Vital Signs Vital signs: Vital Signs - 12hr 09/22/21 09/22/21 09/22/21 00:01 06:00 09:14 Temperature 98.8 F 98.7 F Pulse Rate 92 H 90 Respiratory 16 20 Rate Blood Pressure 148/80 Blood Pressure 139/74 120/81 [Right] O2 Sat by Pulse 96 98 Oximetry 09/22/21 09:15 Temperature Pulse Rate Respiratory Rate Blood Pressure 148/80 Blood Pressure [Right] O2 Sat by Pulse Oximetry - Lab 09/22/21 05:13 09/22/21 05:13 Most recent lab results ABG pH 7.100 pH Units (7.350-7.450) L* 09/09/21 21:00 ABG pCO2 20.0 mm Hg 09/09/21 21:00 ABG pO2 60.9 mm Hg (80.0-90.0) L 09/09/21 21:00 ABG HCO3 6.1 mmol/L (20.0-26.0) L 09/09/21 21:00 ABG O2 Saturation 81.1 % (95.0-99.0) L 09/09/21 21:00 Calcium 8.0 mg/dL (8.4-10.2) L 09/22/21 05:13 Phosphorus 2.70 mg/dL (2.5-4.5) 09/16/21 05:23 Magnesium 1.60 mg/dL (1.7-2.3) L 09/17/21 08:00 Urine Creatinine 18.3 mg/dL (0.1-20.0) 09/17/21 10:13 Urine Total Protein 201 mg/dL (5-11.8) H 09/10/21 11:35 Medications & Allergies - Medications Allergies/Adverse Reactions: Allergies No Known Allergies Allergy (Unverified 01/17/17 01:04) Home Medications: Home Medications Medication Instructions Recorded Confirmed Last Taken Type Acetaminophen/Codeine [Tylenol #3] 1 tab PO Q6H PRN #7 tab 01/17/17 09/14/21 Unknown Rx Ibuprofen [Motrin] 600 mg PO Q8H PRN #15 tablet 01/17/17 09/14/21 Unknown Rx methOCARBAMOL [Robaxin TAB] 500 mg PO Q6H PRN #15 tablet 01/17/17 09/14/21 Unknown Rx Active Medications: Generic Name Dose Route Start Last Admin Trade Name Freq PRN Reason Stop Dose Admin Acetaminophen 650 mg 09/09/21 20:24 09/19/21 22:40 Acetaminophen 325 Mg Tab PO 650 mg Q4H PRN Administration Pain MILD(1-3)/Fever >100.5/LOCO Alteplase, Recombinant 2 mg 09/19/21 17:12 09/19/21 17:15 Alteplase 2 Mg Inj IV 2 mg MARTI PRN Administration LINE FLUSH Amlodipine Besylate 10 mg 09/11/21 12:00 09/22/21 09:15 Amlodipine 10 Mg Tab PO 10 mg QDAY LENY Administration Calcitriol 0.5 mcg 09/14/21 19:00 09/21/21 09:42 Calcitriol 0.5 Mcg Cap PO 0.5 mcg QDAY LENY Administration Carvedilol 6.25 mg 09/12/21 22:00 09/22/21 09:15 Carvedilol 6.25 Mg Tab PO 6.25 mg BID LENY Administration Epoetin Alex-epbx 8,000 unit 09/16/21 16:00 09/20/21 17:43 Epoetin Alex-Epbx 10,000 Unit/1 Ml Vial SUB-Q 8,000 unit MoWeFr LENY Administration Hydralazine HCl 10 mg 09/15/21 07:29 Hydralazine 20 Mg/1 Ml Inj IV Q4H PRN Hypertension Hydralazine HCl 50 mg 09/15/21 08:00 09/22/21 09:14 Hydralazine 25 Mg Tab PO 50 mg Q8H LENY Administration Sodium Chloride 1,000 mls @ 125 mls/hr 09/11/21 11:45 09/21/21 21:38 Nacl 0.9% 1000 Ml IV 75 mls/hr DIRECT LENY Administration Sodium Chloride 100 mls @ 999 mls/hr 09/14/21 09:58 Nacl 0.9% IV MARTI PRN Hypotension Sodium Chloride 100 mls @ 999 mls/hr 09/19/21 17:12 Nacl 0.9% IV MARTI PRN Hypotension Labetalol HCl 10 mg 09/11/21 11:09 Labetalol 20 Mg/4 Ml Inj IV Q4HR PRN sbp>160 Metoclopramide HCl 5 mg 09/14/21 09:00 Metoclopramide 10 Mg/2 Ml Inj IV Q8H PRN Nausea And Vomiting Morphine Sulfate 2 mg 09/09/21 20:24 09/20/21 21:28 Morphine 2 Mg/1 Ml Inj IV 2 mg Q4H PRN Administration Pain, Moderate (4-6) Ondansetron HCl 4 mg 09/09/21 20:24 09/11/21 03:43 Ondansetron 4 Mg/2 Ml Inj IV 4 mg Q3H PRN Administration Nausea And Vomiting Pantoprazole Sodium 40 mg 09/11/21 16:30 09/22/21 09:15 Pantoprazole 40 Mg Tab PO 40 mg BIDAC LENY Administration Sodium Chloride 10 ml 09/09/21 22:00 09/22/21 09:16 Sodium Chloride 0.9% 10 Ml Flush Syringe IV 10 ml BID LENY Administration Sodium Chloride 10 ml 09/09/21 20:24 Sodium Chloride 0.9% 10 Ml Flush Syringe IV PRN PRN LINE FLUSH Tamsulosin HCl 0.8 mg 09/11/21 12:00 09/22/21 09:15 Tamsulosin 0.4 Mg Cap PO 0.8 mg QDAY LENY Administration
[2021-09-22] MEDS: CALCITRIOL 0.5 MCG CAP PO SCH (10:15)
--- NOTE | 2021-09-22 11:03 | Progress Note ---
Assessment and Plan Assessment and plan: 61 years old male with past medical history of chronic kidney disease was brought to the hospital because of progressive shortness of breath as stated with vomiting and bleeding from nose for 1 day. Patient is a very poor historian. In the emergency room patient is found to have hemoglobin of 4.8 and hematocrit 14.9 also patient is found to have potassium of 7.1, bicarb 4, anion gap 54, BUN to 38 and creatinine 48.4, lactic acid 2.80. ABG shows pH 7.100, PCO2 20+0, PO2 60.9, bicarb 6.1. The patient was admitted to critical care and underwent emergent hemodialysis. Acute kidney injury due to post renal obstruction Metabolic Acidosis (resolving) Lactic Acidosis 2.8-> 2.1 (resolved) Acute heart failure with preserved ejection fraction (ef 45-50%) Hyperkalemia (resolved) Hypokalemia Uremia (resolved) Urinary retention (resolving) Hypocalcemia Prostateamegaly - psa elevated to 5.18 - monitor electrolytes on serial renal profile - strict I/O, close UOP monitoring - avoid nephrotoxins, renally adjust medications Acute hypoxic respiratory failure (resolved) - O2 sat as low as 56% on admission, currently on room air satting greater than 92% - cxr: no acute findings. - pulmonology following Acute metabolic encephalopathy (resolved) - likely due to uremia - improving hypertension - elevated BP - coreg dose increased, hold linsey-i due to renal fx. Anemia s/p prbcs (stable) likely secondary epistatixis and renal insufficiency. R/o hemoglobinopathy, hemolytic anemia Unable to evaluate iron studies post RBC transfusions Epistaxis (appears resolved) - hx of recurrent epistaxis per son, patient had increased uncontrolled bleeding for 1 day. No prior hx of GI bleed or reported blood in stool. Uremia could have precipitated bleed. - Hgb: 4.8 on admission, s/p 4 units prbc, now 8's - transfuse prn Hgb< 7. - GI consulted due to concern for GI bleed on admission - protonix 40 mg po bid - unclear if this is truly GI source Type II myocardial infarction (resolved) - supply demand from anemia in the setting TIFFANIE - serial troponins ordered, downtrending. -cardiology following, no intervention at this time. EtOH use disorder person patient stopped a few weeks ago. Sepsis ruled out, doubt infectious etiology. Hospital Course: 09/10: Improved on bedside encounter. Urology placed león catheter. Plan for nephrology to complete HD today. Hgb improved to 8.3, suspect anemia is purely from epistaxis, unclear if there was truly was a GI source. Will continue to monitor for other source of bleed. GI consulted, will follow recommendations. 09/11: hemoglobin stable. patient on encounter states he had recurrent epistaxis bleed leading up to hospitalization. Hgb stable this AM. Renal indices improved on bmp. Urine output 1000 cc yesterday. Troponin downtrending. D/w Dr. Juan A Martin, will d/c protonix IV, start on protonix 40 mg po bid. Transfer to floor bed. 09/12: Doing well on encounter today. on room air saturating 98%. Renal indices improving. León output approx: 2500 cc yday. [place] tingued urine noted, clearing up. hemoglobin 8.1, VSS. No plan for HD today per nephrology. We will continue to follow along for hemodialysis plan moving forward and nephrology final impression on renal prognosis. Anticipate d/c in next 24-48 hrs depending on this. Patient will likely need to be discharged with León catheter and in structions to follow-up with urology as an outpatient. 09/13: Patient remains clinically stable. Renal function appears to slightly worsened today. Nephrology noted the slight worsening. Will reevaluate in a.m. Patient undergoing 24-hour urine collection. From respiratory standpoint patient is stable acute respiratory failure secondary to fluid overload has resolved. Plan discussed with the patient in detail he verbalized understanding. 15 minutes counseling provided to the patient about continued cessation of EtOH use on lifestyle preventive care measures. We will monitor potassium level and slight of renal failure. 09/14: Patient seen and examined this morning hypokalemia persist also hypocalcemia we will replace both potassium and calcium. Patient advised by staple fiber washer that he will be having dialysis today as creatinine is gradually creeping back up to 11.2 today. León remains in place with good urine output. Patient understands he will have to go home with a León and follow-up with urologist. Based on discussion with nephrology will determine if her permacath needs to be placed prior to discharge. I have also updated the and answered all questions. At this time awaiting renal recovery if possible. We will continue to monitor H&H 09/15: Patient seen and examined, no new complaints, review of labs shows improvement of renal function following HD yesterday, however HGB still decreasing. Will order a unit of PRBC and Hematology consultation. Further management and discharge plan depends on renal recovery and Nephrology input. Patient updated. 09/16: Patient seen and examined this morning. some response to blood transfusion noted. Reached out to nephrology to see if we should start planning for outpatient dialysis for this patient with the upward trend of creatinine following 2 days after dialysis. Appears the patient will get hemodialyzed again today. Overall concern for this patient is that he is got multiple issues pointing towards a poor renal resolution without dialysis outpatient. Will await nephrology input. He has had 4 units of packed red blood cell. Hemoglobin is at 7.7 09/17: Nephrology to hold hemodialysis today and monitor for renal recovery off hemodialysis. IV fluid increased. Follow-up 24-hour urine collection. Patient was initiated on hemodialysis on 09/10/21 due to severe renal failure coupled with severe Hyperkalemia and Acidosis. CT AP showed BL hydronephrosis and bladder scan was positive for urinary retention. Urology consulted and placed león and recommended Flomax and to call them for león catheter removal. Continue on Flomax 0.8 mg daily. Monitor post obstructive diuresis closely. Renally dose medications. Avoid nephrotoxic agents. Strict I&O's daily. Obtain daily weights. Assess dialysis needs daily. Follow-up labs LDH, retic, hemoglobin electrophoresis, spep. Hematology started Ferrlecit. Transfuse for hemoglobin less than 7 09/18: Hematology suspects hemolytic uremic syndrome. Follow-up labs for Carole, [id number] test , If >10% then confidently say HUS. Also follow- up hemoglobin electrophoresis and SPEP. Continue Retacrit 3 times a week and Ferrlecit. Patient will need outpatient [place] hematology referral. Nephrology held HD on 09/17 to monitor for renal recovery without hemodialysis. Awaiting final decision on HD needs on an outpatient basis. Discharge planners will contact Brian and Michael to discuss james care, as patient is self-pay, at this time. \ 09/19: Patient seen in hemodialysis. Continue to follow-up serologies. [facility] is evaluating pt for possible HUS. If HUS, pt may require plasmapheresis. Will follow up HemOnc work up. Follow-up hemoglobin electrophoresis and SPEP. Patient will need outpatient [place] hematology referral. 09/20: Follow-up labs for Carole, [id number] test , If [id number] >10% then co nfidently say HUS. Also follow-up hemoglobin electrophoresis and SPEP. Continue Retacrit 3 times a week and Ferrlecit. Patient will need outpatient [place] hematology referral. Patient had hemodialysis yesterday for clearance only. Patient has had good UOP. Continue to monitor for signs of renal recovery. 09/21: Nephrology reports BUN and creatinine continue to rise off hemodialysis however good urinary output. No indication for hemodialysis today. Continue to monitor for signs of renal recovery. Work-up for possible HUS per hematology. Continue Flomax, Calcitrol, Retacrit and Ferrlecit. Strict I&O's daily 09/22: Nephrology reports patient will likely have hemodialysis tomorrow. Co ntinue to follow work-up by hematology for possible HUS. If no signs of renal recovery, pt will require perm catheter placement, likely Thursday, currently patient is without insurance and unlikely will be able to assign outpatient HD clinic. CT AP showed BL hydronephrosis and bladder scan was positive for urinary retention. Urology consulted and placed león and recommended Flomax and to call them for león catheter removal. Continue Flomax and calcitriol. Renally dose medications. Strict I&O's daily History Interval history: No new issues overnight Hospitalist Physical - Constitutional Vitals: Temp Pulse Resp BP Pulse Ox 98.7 F 90 20 148/80 98 09/22/21 06:00 09/22/21 06:00 09/22/21 06:00 09/22/21 09:15 09/22/21 06:00 General appearance: Present: no acute distress - EENT Eyes: Present: PERRL, EOM intact ENT: hearing intact, clear oral mucosa, dentition normal - Neck Neck: Present: supple, normal ROM - Respiratory Respiratory effort: normal Respiratory: bilateral: CTA - Cardiovascular Rhythm: regular Heart Sounds: Present: S1 & S2. Absent: gallop, rub - Extremities Extremities: no ischemia, No edema, Full ROM - Abdominal General gastrointestinal: soft, non-tender, non-distended, normal bowel sounds - Integumentary Integumentary: Present: clear, warm, dry - Neurologic Neurologic: CNII-XII intact, moves all extremities HEART Score - HEART Score Troponin: Troponin T 0.158 ng/mL (0.00-0.029) H* 09/10/21 Unknown Results - Labs CBC & Chem 7: 09/22/21 05:13 09/22/21 05:13 Labs: Laboratory Last Values WBC 8.2 K/mm3 (4.5-11.0) 09/22/21 05:13 RBC 2.60 M/mm3 (3.65-5.03) L 09/22/21 05:13 Hgb 7.5 gm/dl (11.8-15.2) L 09/22/21 05:13 Hct 22.3 % (35.5-45.6) L 09/22/21 05:13 MCV 86 fl (84-94) 09/22/21 05:13 MCH 29 pg (28-32) 09/22/21 05:13 MCHC 34 % (32-34) 09/22/21 05:13 RDW 16.5 % (13.2-15.2) H 09/22/21 05:13 Plt Count 292 K/mm3 (140-440) 09/22/21 05:13 Lymph % (Auto) 16.4 % (13.4-35.0) 09/22/21 05:13 [place] % (Auto) 12.9 % (0.0-7.3) H 09/22/21 05:13 Eos % (Auto) 2.9 % (0.0-4.3) 09/22/21 05:13 Baso % (Auto) 1.2 % (0.0-1.8) 09/22/21 05:13 Lymph # (Auto) 1.3 K/mm3 (1.2-5.4) 09/22/21 05:13 [place] # (Auto) 1.1 K/mm3 (0.0-0.8) H 09/22/21 05:13 Eos # (Auto) 0.2 K/mm3 (0.0-0.4) 09/22/21 05:13 Baso # (Auto) 0.1 K/mm3 (0.0-0.1) 09/22/21 05:13 Add Manual Diff Complete 09/18/21 05:08 Total Counted 100 09/18/21 05:08 Seg Neutrophils % 66.6 % (40.0-70.0) 09/22/21 05:13 Seg Neuts % (Manual) 73.0 % (40.0-70.0) H 09/18/21 05:08 Band Neutrophils % 0 % 09/18/21 05:08 Lymphocytes % (Manual) 14.0 % (13.4-35.0) 09/18/21 05:08 Reactive Lymphs % (Man) 0 % 09/18/21 05:08 Monocytes % (Manual) 10.0 % (0.0-7.3) H 09/18/21 05:08 Eosinophils % (Manual) 3.0 % (0.0-4.3) 09/18/21 05:08 Basophils % (Manual) 0 % (0.0-1.8) 09/18/21 05:08 Metamyelocytes % 0 % 09/18/21 05:08 Myelocytes % 0 % 09/18/21 05:08 Promyelocytes % 0 % 09/18/21 05:08 Blast Cells % 0 % 09/18/21 05:08 Nucleated RBC % Not Reportable 09/18/21 05:08 Seg Neutrophils # 5.4 K/mm3 (1.8-7.7) 09/22/21 05:13 Seg Neutrophils # Man 6.5 K/mm3 (1.8-7.7) 09/18/21 05:08 Band Neutrophils # 0.0 K/mm3 09/18/21 05:08 Lymphocytes # (Manual) 1.2 K/mm3 (1.2-5.4) 09/18/21 05:08 Abs React Lymphs (Man) 0.0 K/mm3 09/18/21 05:08 Monocytes # (Manual) 0.9 K/mm3 (0.0-0.8) H 09/18/21 05:08 Eosinophils # (Manual) 0.3 K/mm3 (0.0-0.4) 09/18/21 05:08 Basophils # (Manual) 0.0 K/mm3 (0.0-0.1) 09/18/21 05:08 Metamyelocytes # 0.0 K/mm3 09/18/21 05:08 Myelocytes # 0.0 K/mm3 09/18/21 05:08 Promyelocytes # 0.0 K/mm3 09/18/21 05:08 Blast Cells # 0.0 K/mm3 09/18/21 05:08 WBC Morphology Not Reportable 09/18/21 05:08 Hypersegmented Neuts Not Reportable 09/18/21 05:08 Hyposegmented Neuts Not Reportable 09/18/21 05:08 Hypogranular Neuts Not Reportable 09/18/21 05:08 Smudge Cells Not Reportable 09/18/21 05:08 Toxic Granulation Rare 09/18/21 05:08 Toxic Vacuolation Not Reportable 09/18/21 05:08 Dohle Bodies Not Reportable 09/18/21 05:08 Pelger-Huet Anomaly Not Reportable 09/18/21 05:08 Francisco Javier Rods Not Reportable 09/18/21 05:08 Platelet Estimate Consistent w auto 09/18/21 05:08 Clumped Platelets Not Reportable 09/18/21 05:08 Plt Clumps, EDTA Not Reportable 09/18/21 05:08 Large Platelets Not Reportable 09/18/21 05:08 Giant Platelets Not Reportable 09/18/21 05:08 Platelet Satelliting Not Reportable 09/18/21 05:08 Plt Morphology Comment Not Reportable 09/18/21 05:08 RBC Morphology Not Reportable 09/18/21 05:08 Dimorphic RBCs Not Reportable 09/18/21 05:08 Polychromasia Few 09/18/21 05:08 Hypochromasia Not Reportable 09/18/21 05:08 Poikilocytosis Not Reportable 09/18/21 05:08 Anisocytosis Not Reportable 09/18/21 05:08 Microcytosis Not Reportable 09/18/21 05:08 Macrocytosis Few 09/18/21 05:08 Spherocytes Not Reportable 09/18/21 05:08 Pappenheimer Bodies Not Reportable 09/18/21 05:08 Sickle Cells Not Reportable 09/18/21 05:08 Target Cells Not Reportable 09/18/21 05:08 Tear Drop Cells Not Reportable 09/18/21 05:08 Ovalocytes Not Reportable 09/18/21 05:08 Stomatocytes Rare 09/10/21 Unknown Helmet Cells Not Reportable 09/18/21 05:[address] [place] Bodies Not Reportable 09/18/21 05:08 [place] Rings Not Reportable 09/18/21 05:08 [place] Cells Not Reportable 09/18/21 05:08 Bite Cells Not Reportable 09/18/21 05:08 Crenated Cell Not Reportable 09/18/21 05:08 Elliptocytes Not Reportable 09/18/21 05:08 Acanthocytes (Spur) Not Reportable 09/18/21 05:08 Rouleaux Not Reportable 09/18/21 05:08 Hemoglobin C Crystals Not Reportable 09/18/21 05:08 Schistocytes Not Reportable 09/18/21 05:08 Malaria parasites Not Reportable 09/18/21 05:08 Percent Retic 2.51 % (0.78-2.58) 09/17/21 10:13 Jose Bodies Not Reportable 09/18/21 05:08 Hem Pathologist Commnt No 09/18/21 05:08 PT 16.6 Sec. (12.2-14.9) H 09/09/21 18:53 INR 1.20 (0.87-1.13) H 09/09/21 18:53 D-Dimer 2203.38 ng/mlDDU (0-234) H 09/09/21 18:53 ABG pH 7.100 pH Units (7.350-7.450) L* 09/09/21 21:00 ABG pCO2 20.0 mm Hg 09/09/21 21:00 ABG pO2 60.9 mm Hg (80.0-90.0) L 09/09/21 21:00 ABG HCO3 6.1 mmol/L (20.0-26.0) L 09/09/21 21:00 ABG O2 Saturation 81.1 % (95.0-99.0) L 09/09/21 21:00 ABG O2 Content 4.8 (0.0-44) 09/09/21 21:00 ABG Base Excess -21.5 mmol/L (-2.0-3.0) L 09/09/21 21:00 ABG Hemoglobin 5.0 gm/dl (14.0-18.0) L 09/09/21 21:00 ABG Carboxyhemoglobin 1.3 % (0.0-5.0) 09/09/21 21:00 ABG Methemoglobin 0.5 % (0.0-1.5) 09/09/21 21:00 Oxyhemoglobin 79.7 % (95.0-99.0) L 09/09/21 21:00 FiO2 28 % 09/09/21 21:00 Sodium 142 mmol/L (137-145) 09/22/21 05:13 Potassium 5.0 mmol/L (3.6-5.0) 09/22/21 05:13 Chloride 106.6 mmol/L (98-107) 09/22/21 05:13 Carbon Dioxide 18 mmol/L (22-30) L 09/22/21 05:13 Anion Gap 22 mmol/L 09/22/21 05:13 BUN 66 mg/dL (9-20) H 09/22/21 05:13 Creatinine 9.2 mg/dL (0.8-1.3) H 09/22/21 05:13 Estimated GFR 7 ml/min 09/22/21 05:13 BUN/Creatinine Ratio 7 % 09/22/21 05:13 Glucose 86 mg/dL (75-100) 09/22/21 05:13 POC Glucose 147 mg/dL (70-105) H 09/10/21 07:35 Lactic Acid 2.10 mmol/L (0.7-2.0) H* 09/09/21 20:49 Calcium 8.0 mg/dL (8.4-10.2) L 09/22/21 05:13 Phosphorus 2.70 mg/dL (2.5-4.5) 09/16/21 05:23 Magnesium 1.60 mg/dL (1.7-2.3) L 09/17/21 08:00 Total Bilirubin 0.30 mg/dL (0.1-1.2) 09/09/21 18:53 AST 17 units/L (5-40) 09/09/21 18:53 ALT 19 units/L (7-56) 09/09/21 18:53 Alkaline Phosphatase 57 units/L (35-129) 09/09/21 18:53 Ammonia 39.0 umol/L (25-60) 09/09/21 19:02 Lactate Dehydrogenase 312 units/L (91-180) H 09/17/21 10:13 Total Creatine Kinase 1530 units/L (55-170) H 09/10/21 Unknown CK-MB (CK-2) 21.4 ng/mL (0.0-4.0) H 09/09/21 18:53 CK-MB (CK-2) Rel Index 1.2 (0-4) 09/09/21 18:53 Troponin T 0.158 ng/mL (0.00-0.029) H* 09/10/21 Unknown C-Reactive Protein 1.50 mg/dL (0.00-1.30) H 09/09/21 18:53 NT-Pro-B Natriuret Pep 6011 pg/mL (0-900) H 09/09/21 18:53 Serum Total Protein 5.4 g/dL (6.1-8.1) L 09/17/21 10:13 Total Protein 7.4 g/dL (6.3-8.2) 09/09/21 18:53 Albumin 2.5 g/dL (3.8-4.8) L 09/17/21 10:13 Albumin/Globulin Ratio 1.3 % 09/09/21 18:53 Tibzm-6-Rzqbfccyz 0.5 g/dL (0.2-0.3) H 09/17/21 10:13 Tbnbu-9-[id number] 1.0 g/dL (0.5-0.9) H 09/17/21 10:13 Beta Globulins 0.4 g/dL (0.2-0.5) 09/17/21 10:13 Gamma Globulins 0.8 g/dL (0.8-1.7) 09/17/21 10:13 Abnorm Protein Band 1 see below 09/17/21 10:13 PEP Interpretation see below H 09/17/21 10:13 Triglycerides 177 mg/dL (2-149) H 09/09/21 18:53 Cholesterol 170 mg/dL (50-199) 09/09/21 18:53 LDL Cholesterol Direct 107 mg/dL (50-130) 09/09/21 18:53 HDL Cholesterol 28 mg/dL (40-59) L 09/09/21 18:53 Cholesterol/HDL Ratio 6.07 % 09/09/21 18:53 Lipase 1198 units/L (13-60) H 09/09/21 18:53 Prostate Specific Ag 5.18 ng/mL (0.00-4.00) H 09/10/21 Unknown 25-OH Vitamin D Total 7 ng/mL (30-100) L 09/14/21 22:47 25-Hydroxy Vitamin D2 <4 ng/mL 09/14/21 22:47 25-Hydroxy Vitamin D3 7 ng/mL 09/14/21 22:47 PTH Intact 259.3 pg/mL (15-65) H 09/14/21 23:27 Urine Color Straw (Yellow) 09/09/21 11:35 Urine Turbidity Clear (Clear) 09/09/21 11:35 Urine pH 6.0 (5.0-7.0) 09/09/21 11:35 Ur Specific [place] 1.011 (1.003-1.030) 09/09/21 11:35 Urine Protein 100 mg/dl mg/dL (Negative) 09/09/21 11:35 Urine Glucose (UA) 50 mg/dL (Negative) 09/09/21 11:35 Urine Ketones Neg mg/dL (Negative) 09/09/21 11:35 Urine Blood Mod (Negative) 09/09/21 11:35 Urine Nitrite Neg (Negative) 09/09/21 11:35 Urine Bilirubin Neg (Negative) 09/09/21 11:35 Urine Urobilinogen < 2.0 mg/dL (<2.0) 09/09/21 11:35 Ur Leukocyte Esterase Neg (Negative) 09/09/21 11:35 Urine WBC (Auto) 2.0 /HPF (0.0-6.0) 09/09/21 11:35 Urine RBC (Auto) 11.0 /HPF (0.0-6.0) 09/09/21 11:35 Urine Total Volume 3750 ml 09/17/21 10:13 Urine Creatinine 18.3 mg/dL (0.1-20.0) 09/17/21 10:13 Height (in) 68.0 inches 09/17/21 10:13 Weight (lb) 130.0 lbs 09/17/21 10:13 Creatinine Clearance 7 09/17/21 10:13 Protein/Creatinin Ratio 1.78 09/10/21 11:35 Urine Total Protein 201 mg/dL (5-11.8) H 09/10/21 11:35 Urine Opiates Screen Presumptive negative 09/10/21 11:35 Urine Methadone Screen Presumptive negative 09/10/21 11:35 Ur Barbiturates Screen Presumptive negative 09/10/21 11:35 Ur Phencyclidine Scrn Presumptive negative 09/10/21 11:35 Ur Amphetamines Screen Presumptive negative 09/10/21 11:35 U Benzodiazepines Scrn Presumptive negative 09/10/21 11:35 Urine Cocaine Screen Presumptive negative 09/10/21 11:35 U Marijuana (THC) Screen Presumptive negative 09/10/21 11:35 Drugs of Abuse Note Disclamer 09/10/21 11:35 Plasma/Serum Alcohol < 0.01 % (0-0.07) 09/10/21 11:35 Coronavirus (PCR) Negative (Negative) 09/18/21 10:45 Hepatitis A IgM Ab Nonreactive (NonReactive) 09/09/21 20:55 Hep Bs Antigen Non-reactive (Negative) 09/09/21 20:55 Hep B Core IgM Ab Non-reactive (NonReactive) 09/09/21 20:55 Hepatitis C Antibody Non-reactive (NonReactive) 09/09/21 20:55 Blood Type O POSITIVE 09/15/21 07:50 Antibody Screen Negative 09/15/21 07:50 Direct Antiglob Test Negative 09/18/21 05:08 OMID, Poly Interpret Negative 09/18/21 05:08 Crossmatch See Detail 09/15/21 07:50 León/IV: Voiding Method Indwelling Catheter Active Medications - Current Medications Current Medications: Generic Name Dose Route Start Last Admin Trade Name Freq PRN Reason Stop Dose Admin Acetaminophen 650 mg 09/09/21 20:24 09/19/21 22:40 Acetaminophen 325 Mg Tab PO 650 mg Q4H PRN Administration Pain MILD(1-3)/Fever >100.5/OLCO Alteplase, Recombinant 2 mg 09/19/21 17:12 09/19/21 17:15 Alteplase 2 Mg Inj IV 2 mg MARTI PRN Administration LINE FLUSH Amlodipine Besylate 10 mg 09/11/21 12:00 09/22/21 09:15 Amlodipine 10 Mg Tab PO 10 mg QDAY LENY Administration Calcitriol 0.5 mcg 09/14/21 19:00 09/22/21 10:15 Calcitriol 0.5 Mcg Cap PO 0.5 mcg QDAY LENY Administration Carvedilol 6.25 mg 09/12/21 22:00 09/22/21 09:15 Carvedilol 6.25 Mg Tab PO 6.25 mg BID LNEY Administration Epoetin Alex-epbx 8,000 unit 09/16/21 16:00 09/20/21 17:43 Epoetin Alex-Epbx 10,000 Unit/1 Ml Vial SUB-Q 8,000 unit MoWeFr LENY Administration Hydralazine HCl 10 mg 09/15/21 07:29 Hydralazine 20 Mg/1 Ml Inj IV Q4H PRN Hypertension Hydralazine HCl 50 mg 09/15/21 08:00 09/22/21 09:14 Hydralazine 25 Mg Tab PO 50 mg Q8H LENY Administration Sodium Chloride 1,000 mls @ 125 mls/hr 09/11/21 11:45 09/21/21 21:38 Nacl 0.9% 1000 Ml IV 75 mls/hr DIRECT LENY Administration Sodium Chloride 100 mls @ 999 mls/hr 09/14/21 09:58 Nacl 0.9% IV MARTI PRN Hypotension Sodium Chloride 100 mls @ 999 mls/hr 09/19/21 17:12 Nacl 0.9% IV MARTI PRN Hypotension Labetalol HCl 10 mg 09/11/21 11:09 Labetalol 20 Mg/4 Ml Inj IV Q4HR PRN sbp>160 Metoclopramide HCl 5 mg 09/14/21 09:00 Metoclopramide 10 Mg/2 Ml Inj IV Q8H PRN Nausea And Vomiting Morphine Sulfate 2 mg 09/09/21 20:24 09/20/21 21:28 Morphine 2 Mg/1 Ml Inj IV 2 mg Q4H PRN Administration Pain, Moderate (4-6) Ondansetron HCl 4 mg 09/09/21 20:24 09/11/21 03:43 Ondansetron 4 Mg/2 Ml Inj IV 4 mg Q3H PRN Administration Nausea And Vomiting Pantoprazole Sodium 40 mg 09/11/21 16:30 09/22/21 09:15 Pantoprazole 40 Mg Tab PO 40 mg BIDAC LENY Administration Sodium Chloride 10 ml 09/09/21 22:00 09/22/21 09:16 Sodium Chloride 0.9% 10 Ml Flush Syringe IV 10 ml BID LENY Administration Sodium Chloride 10 ml 09/09/21 20:24 Sodium Chloride 0.9% 10 Ml Flush Syringe IV PRN PRN LINE FLUSH Tamsulosin HCl 0.8 mg 09/11/21 12:00 09/22/21 09:15 Tamsulosin 0.4 Mg Cap PO 0.8 mg QDAY LENY Administration Nutrition/Malnutrition Assess - Dietary Evaluation Nutrition/Malnutrition Findings: Nutrition Notes Start: 09/10/21 15:32 Freq: Status: Active Protocol: Document 09/20/21 13:41 ALEX (Rec: 09/20/21 13:48 ALEX [id number]) Nutrition Notes Initial or Follow up Reassessment Current Diagnosis Acute Kidney Injury, Hypertension,Heart Failure Other Pertinent Diagnosis Obstructive uropathy, Anemia, EtOH dependence Current Diet Renal/Cardiac + Nepro BID Labs/Tests BUN 47 Cr 7.7 Pertinent Medications Calcitriol, Epoetin, NS at 125ml/hr Height 5 ft 8 in Weight 87.5 kg [place] Body Weight (kg) 70.00 BMI 29.3 Weight change and time frame Pt says current wt is accurate Weight Status Overweight Subjective/Other Information Pt reports very good appetite; he has consumed 89% of meals since last assessment. He drinks the Nepro shakes as well. Per nephrology, no need for HD today; pt to be assessed for HD needs on a daily basis. Percent of energy/protein needs met: 100% energy and pro (includes ONS) Burn Absent Trauma Absent #1 Nutrition Diagnosis Increased nutrient needs ( specify in comment below) Diagnosis Progress(for reassessment Continues documentation) Is patient on ventilator? No Is Patient Ambulatory and/or Out of Bed Yes REE-([place] Jeor-ambulatory/OOB) [ [id number] [id number]] Calculation Used for Recommendations [place] Jeor Additional Notes Pro needs >1.2g/kg: >105g/day Fluid needs 1ml/kcal Nutrition Intervention Change Diet Order: Continue current diet order Add Supplement/Snack (indicate name/kcal Nepro BID /protein ) Provides kCal: 850 Provides Protein (gm) 38 Goal #1 PO intake of meals plus ONS to continue to meet at least 75% energy and pro needs Revisit per MD consult or patient Sign Off request:
[2021-09-22] MEDS: SODIUM CHLORIDE 0.9% 1000 ML 1,000 ML IV SCH (17:50)
[2021-09-23] MEDS: hydrALAZINE 25 MG TAB PO SCH ×3 (00:50→23:40)
[2021-09-23] MEDS: SODIUM CHLORIDE 0.9% 1000 ML 1,000 ML IV SCH (05:59)
[2021-09-23] MEDS: PANTOPRAZOLE 40 MG TAB PO SCH (08:25)
[2021-09-23] MEDS: TAMSULOSIN 0.4 MG CAP PO SCH (10:02)
[2021-09-23] MEDS: amLODIPine 10 MG TAB PO SCH (10:03)
[2021-09-23] MEDS: carvediloL 6.25 MG TAB PO SCH ×2 (10:03→22:03)
[2021-09-23] MEDS: CALCITRIOL 0.5 MCG CAP PO SCH (10:03)
--- NOTE | 2021-09-23 11:09 | Progress Note ---
Assessment and Plan Assessment and plan: 61 years old male with past medical history of chronic kidney disease was brought to the hospital because of progressive shortness of breath as stated with vomiting and bleeding from nose for 1 day. Patient is a very poor historian. In the emergency room patient is found to have hemoglobin of 4.8 and hematocrit 14.9 also patient is found to have potassium of 7.1, bicarb 4, anion gap 54, BUN to 38 and creatinine 48.4, lactic acid 2.80. ABG shows pH 7.100, PCO2 20+0, PO2 60.9, bicarb 6.1. The patient was admitted to critical care and underwent emergent hemodialysis. Acute kidney injury due to post renal obstruction Metabolic Acidosis (resolving) Lactic Acidosis 2.8-> 2.1 (resolved) Acute heart failure with preserved ejection fraction (ef 45-50%) Hyperkalemia (resolved) Hypokalemia Uremia (resolved) Urinary retention (resolving) Hypocalcemia Prostateamegaly - psa elevated to 5.18 - monitor electrolytes on serial renal profile - strict I/O, close UOP monitoring - avoid nephrotoxins, renally adjust medications Acute hypoxic respiratory failure (resolved) - O2 sat as low as 56% on admission, currently on room air satting greater than 92% - cxr: no acute findings. - pulmonology following Acute metabolic encephalopathy (resolved) - likely due to uremia - improving hypertension - elevated BP - coreg dose increased, hold linsey-i due to renal fx. Anemia s/p prbcs (stable) likely secondary epistatixis and renal insufficiency. R/o hemoglobinopathy, hemolytic anemia Unable to evaluate iron studies post RBC transfusions Epistaxis (appears resolved) - hx of recurrent epistaxis per son, patient had increased uncontrolled bleeding for 1 day. No prior hx of GI bleed or reported blood in stool. Uremia could have precipitated bleed. - Hgb: 4.8 on admission, s/p 4 units prbc, now 8's - transfuse prn Hgb< 7. - GI consulted due to concern for GI bleed on admission - protonix 40 mg po bid - unclear if this is truly GI source Type II myocardial infarction (resolved) - supply demand from anemia in the setting TIFFANIE - serial troponins ordered, downtrending. -cardiology following, no intervention at this time. EtOH use disorder person patient stopped a few weeks ago. Sepsis ruled out, doubt infectious etiology. Hospital Course: 09/10: Improved on bedside encounter. Urology placed león catheter. Plan for nephrology to complete HD today. Hgb improved to 8.3, suspect anemia is purely from epistaxis, unclear if there was truly was a GI source. Will continue to monitor for other source of bleed. GI consulted, will follow recommendations. 09/11: hemoglobin stable. patient on encounter states he had recurrent epistaxis bleed leading up to hospitalization. Hgb stable this AM. Renal indices improved on bmp. Urine output 1000 cc yesterday. Troponin downtrending. D/w Dr. Juan A Martin, will d/c protonix IV, start on protonix 40 mg po bid. Transfer to floor bed. 09/12: Doing well on encounter today. on room air saturating 98%. Renal indices improving. León output approx: 2500 cc yday. [place] tingued urine noted, clearing up. hemoglobin 8.1, VSS. No plan for HD today per nephrology. We will continue to follow along for hemodialysis plan moving forward and nephrology final impression on renal prognosis. Anticipate d/c in next 24-48 hrs depending on this. Patient will likely need to be discharged with León catheter and in structions to follow-up with urology as an outpatient. 09/13: Patient remains clinically stable. Renal function appears to slightly worsened today. Nephrology noted the slight worsening. Will reevaluate in a.m. Patient undergoing 24-hour urine collection. From respiratory standpoint patient is stable acute respiratory failure secondary to fluid overload has resolved. Plan discussed with the patient in detail he verbalized understanding. 15 minutes counseling provided to the patient about continued cessation of EtOH use on lifestyle preventive care measures. We will monitor potassium level and slight of renal failure. 09/14: Patient seen and examined this morning hypokalemia persist also hypocalcemia we will replace both potassium and calcium. Patient advised by welcome center attendant that he will be having dialysis today as creatinine is gradually creeping back up to 11.2 today. León remains in place with good urine output. Patient understands he will have to go home with a León and follow-up with urologist. Based on discussion with nephrology will determine if her permacath needs to be placed prior to discharge. I have also updated the and answered all questions. At this time awaiting renal recovery if possible. We will continue to monitor H&H 09/15: Patient seen and examined, no new complaints, review of labs shows improvement of renal function following HD yesterday, however HGB still decreasing. Will order a unit of PRBC and Hematology consultation. Further management and discharge plan depends on renal recovery and Nephrology input. Patient updated. 09/16: Patient seen and examined this morning. some response to blood transfusion noted. Reached out to nephrology to see if we should start planning for outpatient dialysis for this patient with the upward trend of creatinine following 2 days after dialysis. Appears the patient will get hemodialyzed again today. Overall concern for this patient is that he is got multiple issues pointing towards a poor renal resolution without dialysis outpatient. Will await nephrology input. He has had 4 units of packed red blood cell. Hemoglobin is at 7.7 09/17: Nephrology to hold hemodialysis today and monitor for renal recovery off hemodialysis. IV fluid increased. Follow-up 24-hour urine collection. Patient was initiated on hemodialysis on 09/10/21 due to severe renal failure coupled with severe Hyperkalemia and Acidosis. CT AP showed BL hydronephrosis and bladder scan was positive for urinary retention. Urology consulted and placed león and recommended Flomax and to call them for león catheter removal. Continue on Flomax 0.8 mg daily. Monitor post obstructive diuresis closely. Renally dose medications. Avoid nephrotoxic agents. Strict I&O's daily. Obtain daily weights. Assess dialysis needs daily. Follow-up labs LDH, retic, hemoglobin electrophoresis, spep. Hematology started Ferrlecit. Transfuse for hemoglobin less than 7 09/18: Hematology suspects hemolytic uremic syndrome. Follow-up labs for Carole, [id number] test , If [id number] >10% then confidently say HUS. Also follow- up hemoglobin electrophoresis and SPEP. Continue Retacrit 3 times a week and Ferrlecit. Patient will need outpatient [place] hematology referral. Nephrology held HD on 09/17 to monitor for renal recovery without hemodialysis. Awaiting final decision on HD needs on an outpatient basis. Discharge planners will contact Brian and Michael to discuss james care, as patient is self-pay, at this time. \ 09/19: Patient seen in hemodialysis. Continue to follow-up serologies. [facility] is evaluating pt for possible HUS. If HUS, pt may require plasmapheresis. Will follow up HemOnc work up. Follow-up hemoglobin electrophoresis and SPEP. Patient will need outpatient [place] hematology referral. 09/20: Follow-up labs for Carole, [id number] test , If [id number] >10% then co nfidently say HUS. Also follow-up hemoglobin electrophoresis and SPEP. Continue Retacrit 3 times a week and Ferrlecit. Patient will need outpatient [place] hematology referral. Patient had hemodialysis yesterday for clearance only. Patient has had good UOP. Continue to monitor for signs of renal recovery. 09/21: Nephrology reports BUN and creatinine continue to rise off hemodialysis however good urinary output. No indication for hemodialysis today. Continue to monitor for signs of renal recovery. Work-up for possible HUS per hematology. Continue Flomax, Calcitrol, Retacrit and Ferrlecit. Strict I&O's daily 09/22: Nephrology reports patient will likely have hemodialysis tomorrow. Co ntinue to follow work-up by hematology for possible HUS. If no signs of renal recovery, pt will require perm catheter placement, likely Thursday, currently patient is without insurance and unlikely will be able to assign outpatient HD clinic. CT AP showed BL hydronephrosis and bladder scan was positive for urinary retention. Urology consulted and placed león and recommended Flomax and to call them for león catheter removal. Continue Flomax and calcitriol. Renally dose medications. Strict I&O's daily 09/23: Await BMP results today. Nephrology reports If no signs of renal recovery, pt will require perm catheter placement, likely today. Await nephrology recommendations. Unfortunately patient is without insurance and unlikely to be able to have assigned outpatient hemodialysis clinic. Case management is working closely to possibly arrange outpatient clinic. CT AP showed BL hydronephrosis and bladder scan was positive for urinary retention. Urology consulted and placed león and recommended Flomax and to call them for león catheter removal. Continue Flomax and calcitriol. Renally dose medications. Strict I&O's daily. Work-up for possible HUS per hematology. History Interval history: No new issues overnight Hospitalist Physical - Constitutional Vitals: Temp Pulse Resp BP Pulse Ox 98.4 F 85 18 157/87 97 09/23/21 05:34 09/23/21 08:35 09/23/21 05:34 09/23/21 08:35 09/23/21 05:34 General appearance: Present: no acute distress - EENT Eyes: Present: PERRL, EOM intact ENT: hearing intact, clear oral mucosa, dentition normal - Neck Neck: Present: supple, normal ROM - Respiratory Respiratory effort: normal Respiratory: bilateral: CTA - Cardiovascular Rhythm: regular Heart Sounds: Present: S1 & S2. Absent: gallop, rub - Extremities Extremities: no ischemia, No edema, Full ROM - Abdominal General gastrointestinal: soft, non-tender, non-distended, normal bowel sounds - Integumentary Integumentary: Present: clear, warm, dry - Neurologic Neurologic: CNII-XII intact, moves all extremities HEART Score - HEART Score Troponin: Troponin T 0.158 ng/mL (0.00-0.029) H* 09/10/21 Unknown Results - Labs CBC & Chem 7: 09/22/21 05:13 09/22/21 05:13 Labs: Laboratory Last Values WBC 8.2 K/mm3 (4.5-11.0) 09/22/21 05:13 RBC 2.60 M/mm3 (3.65-5.03) L 09/22/21 05:13 Hgb 7.5 gm/dl (11.8-15.2) L 09/22/21 05:13 Hct 22.3 % (35.5-45.6) L 09/22/21 05:13 MCV 86 fl (84-94) 09/22/21 05:13 MCH 29 pg (28-32) 09/22/21 05:13 MCHC 34 % (32-34) 09/22/21 05:13 RDW 16.5 % (13.2-15.2) H 09/22/21 05:13 Plt Count 292 K/mm3 (140-440) 09/22/21 05:13 Lymph % (Auto) 16.4 % (13.4-35.0) 09/22/21 05:13 [place] % (Auto) 12.9 % (0.0-7.3) H 09/22/21 05:13 Eos % (Auto) 2.9 % (0.0-4.3) 09/22/21 05:13 Baso % (Auto) 1.2 % (0.0-1.8) 09/22/21 05:13 Lymph # (Auto) 1.3 K/mm3 (1.2-5.4) 09/22/21 05:13 [place] # (Auto) 1.1 K/mm3 (0.0-0.8) H 09/22/21 05:13 Eos # (Auto) 0.2 K/mm3 (0.0-0.4) 09/22/21 05:13 Baso # (Auto) 0.1 K/mm3 (0.0-0.1) 09/22/21 05:13 Add Manual Diff Complete 09/18/21 05:08 Total Counted 100 09/18/21 05:08 Seg Neutrophils % 66.6 % (40.0-70.0) 09/22/21 05:13 Seg Neuts % (Manual) 73.0 % (40.0-70.0) H 09/18/21 05:08 Band Neutrophils % 0 % 09/18/21 05:08 Lymphocytes % (Manual) 14.0 % (13.4-35.0) 09/18/21 05:08 Reactive Lymphs % (Man) 0 % 09/18/21 05:08 Monocytes % (Manual) 10.0 % (0.0-7.3) H 09/18/21 05:08 Eosinophils % (Manual) 3.0 % (0.0-4.3) 09/18/21 05:08 Basophils % (Manual) 0 % (0.0-1.8) 09/18/21 05:08 Metamyelocytes % 0 % 09/18/21 05:08 Myelocytes % 0 % 09/18/21 05:08 Promyelocytes % 0 % 09/18/21 05:08 Blast Cells % 0 % 09/18/21 05:08 Nucleated RBC % Not Reportable 09/18/21 05:08 Seg Neutrophils # 5.4 K/mm3 (1.8-7.7) 09/22/21 05:13 Seg Neutrophils # Man 6.5 K/mm3 (1.8-7.7) 09/18/21 05:08 Band Neutrophils # 0.0 K/mm3 09/18/21 05:08 Lymphocytes # (Manual) 1.2 K/mm3 (1.2-5.4) 09/18/21 05:08 Abs React Lymphs (Man) 0.0 K/mm3 09/18/21 05:08 Monocytes # (Manual) 0.9 K/mm3 (0.0-0.8) H 09/18/21 05:08 Eosinophils # (Manual) 0.3 K/mm3 (0.0-0.4) 09/18/21 05:08 Basophils # (Manual) 0.0 K/mm3 (0.0-0.1) 09/18/21 05:08 Metamyelocytes # 0.0 K/mm3 09/18/21 05:08 Myelocytes # 0.0 K/mm3 09/18/21 05:08 Promyelocytes # 0.0 K/mm3 09/18/21 05:08 Blast Cells # 0.0 K/mm3 09/18/21 05:08 WBC Morphology Not Reportable 09/18/21 05:08 Hypersegmented Neuts Not Reportable 09/18/21 05:08 Hyposegmented Neuts Not Reportable 09/18/21 05:08 Hypogranular Neuts Not Reportable 09/18/21 05:08 Smudge Cells Not Reportable 09/18/21 05:08 Toxic Granulation Rare 09/18/21 05:08 Toxic Vacuolation Not Reportable 09/18/21 05:08 Dohle Bodies Not Reportable 09/18/21 05:08 Pelger-Huet Anomaly Not Reportable 09/18/21 05:08 Francisco Javier Rods Not Reportable 09/18/21 05:08 Platelet Estimate Consistent w auto 09/18/21 05:08 Clumped Platelets Not Reportable 09/18/21 05:08 Plt Clumps, EDTA Not Reportable 09/18/21 05:08 Large Platelets Not Reportable 09/18/21 05:08 Giant Platelets Not Reportable 09/18/21 05:08 Platelet Satelliting Not Reportable 09/18/21 05:08 Plt Morphology Comment Not Reportable 09/18/21 05:08 RBC Morphology Not Reportable 09/18/21 05:08 Dimorphic RBCs Not Reportable 09/18/21 05:08 Polychromasia Few 09/18/21 05:08 Hypochromasia Not Reportable 09/18/21 05:08 Poikilocytosis Not Reportable 09/18/21 05:08 Anisocytosis Not Reportable 09/18/21 05:08 Microcytosis Not Reportable 09/18/21 05:08 Macrocytosis Few 09/18/21 05:08 Spherocytes Not Reportable 09/18/21 05:08 Pappenheimer Bodies Not Reportable 09/18/21 05:08 Sickle Cells Not Reportable 09/18/21 05:08 Target Cells Not Reportable 09/18/21 05:08 Tear Drop Cells Not Reportable 09/18/21 05:08 Ovalocytes Not Reportable 09/18/21 05:08 Stomatocytes Rare 09/10/21 Unknown Helmet Cells Not Reportable 09/18/21 05:08 Sam[place]-Emory Bodies Not Reportable 09/18/21 05:08 Morrow Rings Not Reportable 09/18/21 05:08 Vika Cells Not Reportable 09/18/21 05:08 Bite Cells Not Reportable 09/18/21 05:08 Crenated Cell Not Reportable 09/18/21 05:08 Elliptocytes Not Reportable 09/18/21 05:08 Acanthocytes (Spur) Not Reportable 09/18/21 05:08 Rouleaux Not Reportable 09/18/21 05:08 Hemoglobin C Crystals Not Reportable 09/18/21 05:08 Schistocytes Not Reportable 09/18/21 05:08 Malaria parasites Not Reportable 09/18/21 05:08 Percent Retic 2.51 % (0.78-2.58) 09/17/21 10:13 Jose Bodies Not Reportable 09/18/21 05:08 Hem Pathologist Commnt No 09/18/21 05:08 PT 16.6 Sec. (12.2-14.9) H 09/09/21 18:53 INR 1.20 (0.87-1.13) H 09/09/21 18:53 D-Dimer 2203.38 ng/mlDDU (0-234) H 09/09/21 18:53 ABG pH 7.100 pH Units (7.350-7.450) L* 09/09/21 21:00 ABG pCO2 20.0 mm Hg 09/09/21 21:00 ABG pO2 60.9 mm Hg (80.0-90.0) L 09/09/21 21:00 ABG HCO3 6.1 mmol/L (20.0-26.0) L 09/09/21 21:00 ABG O2 Saturation 81.1 % (95.0-99.0) L 09/09/21 21:00 ABG O2 Content 4.8 (0.0-44) 09/09/21 21:00 ABG Base Excess -21.5 mmol/L (-2.0-3.0) L 09/09/21 21:00 ABG Hemoglobin 5.0 gm/dl (14.0-18.0) L 09/09/21 21:00 ABG Carboxyhemoglobin 1.3 % (0.0-5.0) 09/09/21 21:00 ABG Methemoglobin 0.5 % (0.0-1.5) 09/09/21 21:00 Oxyhemoglobin 79.7 % (95.0-99.0) L 09/09/21 21:00 FiO2 28 % 09/09/21 21:00 Sodium 142 mmol/L (137-145) 09/22/21 05:13 Potassium 5.0 mmol/L (3.6-5.0) 09/22/21 05:13 Chloride 106.6 mmol/L (98-107) 09/22/21 05:13 Carbon Dioxide 18 mmol/L (22-30) L 09/22/21 05:13 Anion Gap 22 mmol/L 09/22/21 05:13 BUN 66 mg/dL (9-20) H 09/22/21 05:13 Creatinine 9.2 mg/dL (0.8-1.3) H 09/22/21 05:13 Estimated GFR 7 ml/min 09/22/21 05:13 BUN/Creatinine Ratio 7 % 09/22/21 05:13 Glucose 86 mg/dL (75-100) 09/22/21 05:13 POC Glucose 147 mg/dL (70-105) H 09/10/21 07:35 Lactic Acid 2.10 mmol/L (0.7-2.0) H* 09/09/21 20:49 Calcium 8.0 mg/dL (8.4-10.2) L 09/22/21 05:13 Phosphorus 2.70 mg/dL (2.5-4.5) 09/16/21 05:23 Magnesium 1.60 mg/dL (1.7-2.3) L 09/17/21 08:00 Total Bilirubin 0.30 mg/dL (0.1-1.2) 09/09/21 18:53 AST 17 units/L (5-40) 09/09/21 18:53 ALT 19 units/L (7-56) 09/09/21 18:53 Alkaline Phosphatase 57 units/L (35-129) 09/09/21 18:53 Ammonia 39.0 umol/L (25-60) 09/09/21 19:02 Lactate Dehydrogenase 312 units/L (91-180) H 09/17/21 10:13 Total Creatine Kinase 1530 units/L (55-170) H 09/10/21 Unknown CK-MB (CK-2) 21.4 ng/mL (0.0-4.0) H 09/09/21 18:53 CK-MB (CK-2) Rel Index 1.2 (0-4) 09/09/21 18:53 Troponin T 0.158 ng/mL (0.00-0.029) H* 09/10/21 Unknown C-Reactive Protein 1.50 mg/dL (0.00-1.30) H 09/09/21 18:53 NT-Pro-B Natriuret Pep 6011 pg/mL (0-900) H 09/09/21 18:53 Serum Total Protein 5.4 g/dL (6.1-8.1) L 09/17/21 10:13 Total Protein 7.4 g/dL (6.3-8.2) 09/09/21 18:53 Albumin 2.5 g/dL (3.8-4.8) L 09/17/21 10:13 Albumin/Globulin Ratio 1.3 % 09/09/21 18:53 Elkxu-7-Sigbxflxf 0.5 g/dL (0.2-0.3) H 09/17/21 10:13 Kzpad-7-Vuwonpeva 1.0 g/dL (0.5-0.9) H 09/17/21 10:13 Beta Globulins 0.4 g/dL (0.2-0.5) 09/17/21 10:13 Gamma Globulins 0.8 g/dL (0.8-1.7) 09/17/21 10:13 Abnorm Protein Band 1 see below 09/17/21 10:13 PEP Interpretation see below H 09/17/21 10:13 Triglycerides 177 mg/dL (2-149) H 09/09/21 18:53 Cholesterol 170 mg/dL (50-199) 09/09/21 18:53 LDL Cholesterol Direct 107 mg/dL (50-130) 09/09/21 18:53 HDL Cholesterol 28 mg/dL (40-59) L 09/09/21 18:53 Cholesterol/HDL Ratio 6.07 % 09/09/21 18:53 Lipase 1198 units/L (13-60) H 09/09/21 18:53 Prostate Specific Ag 5.18 ng/mL (0.00-4.00) H 09/10/21 Unknown 25-OH Vitamin D Total 7 ng/mL (30-100) L 09/14/21 22:47 25-Hydroxy Vitamin D2 <4 ng/mL 09/14/21 22:47 25-Hydroxy Vitamin D3 7 ng/mL 09/14/21 22:47 PTH Intact 259.3 pg/mL (15-65) H 09/14/21 23:27 Urine Color Straw (Yellow) 09/09/21 11:35 Urine Turbidity Clear (Clear) 09/09/21 11:35 Urine pH 6.0 (5.0-7.0) 09/09/21 11:35 Ur Specific [place] 1.011 (1.003-1.030) 09/09/21 11:35 Urine Protein 100 mg/dl mg/dL (Negative) 09/09/21 11:35 Urine Glucose (UA) 50 mg/dL (Negative) 09/09/21 11:35 Urine Ketones Neg mg/dL (Negative) 09/09/21 11:35 Urine Blood Mod (Negative) 09/09/21 11:35 Urine Nitrite Neg (Negative) 09/09/21 11:35 Urine Bilirubin Neg (Negative) 09/09/21 11:35 Urine Urobilinogen < 2.0 mg/dL (<2.0) 09/09/21 11:35 Ur Leukocyte Esterase Neg (Negative) 09/09/21 11:35 Urine WBC (Auto) 2.0 /HPF (0.0-6.0) 09/09/21 11:35 Urine RBC (Auto) 11.0 /HPF (0.0-6.0) 09/09/21 11:35 Urine Total Volume 3750 ml 09/17/21 10:13 Urine Creatinine 18.3 mg/dL (0.1-20.0) 09/17/21 10:13 Height (in) 68.0 inches 09/17/21 10:13 Weight (lb) 130.0 lbs 09/17/21 10:13 Creatinine Clearance 7 09/17/21 10:13 Protein/Creatinin Ratio 1.78 09/10/21 11:35 Urine Total Protein 201 mg/dL (5-11.8) H 09/10/21 11:35 Urine Opiates Screen Presumptive negative 09/10/21 11:35 Urine Methadone Screen Presumptive negative 09/10/21 11:35 Ur Barbiturates Screen Presumptive negative 09/10/21 11:35 Ur Phencyclidine Scrn Presumptive negative 09/10/21 11:35 Ur Amphetamines Screen Presumptive negative 09/10/21 11:35 U Benzodiazepines Scrn Presumptive negative 09/10/21 11:35 Urine Cocaine Screen Presumptive negative 09/10/21 11:35 U Marijuana (THC) Screen Presumptive negative 09/10/21 11:35 Drugs of Abuse Note Disclamer 09/10/21 11:35 Plasma/Serum Alcohol < 0.01 % (0-0.07) 09/10/21 11:35 Coronavirus (PCR) Negative (Negative) 09/18/21 10:45 Hepatitis A IgM Ab Nonreactive (NonReactive) 09/09/21 20:55 Hep Bs Antigen Non-reactive (Negative) 09/09/21 20:55 Hep B Core IgM Ab Non-reactive (NonReactive) 09/09/21 20:55 Hepatitis C Antibody Non-reactive (NonReactive) 09/09/21 20:55 Blood Type O POSITIVE 09/15/21 07:50 Antibody Screen Negative 09/15/21 07:50 Direct Antiglob Test Negative 09/18/21 05:08 OMID, Poly Interpret Negative 09/18/21 05:08 Crossmatch See Detail 09/15/21 07:50 León/IV: Voiding Method Indwelling Catheter Active Medications - Current Medications Current Medications: Generic Name Dose Route Start Last Admin Trade Name Freq PRN Reason Stop Dose Admin Acetaminophen 650 mg 09/09/21 20:24 09/19/21 22:40 Acetaminophen 325 Mg Tab PO 650 mg Q4H PRN Administration Pain MILD(1-3)/Fever >100.5/LOCO Alteplase, Recombinant 2 mg 09/19/21 17:12 09/19/21 17:15 Alteplase 2 Mg Inj IV 2 mg MARTI PRN Administration LINE FLUSH Amlodipine Besylate 10 mg 09/11/21 12:00 09/23/21 10:03 Amlodipine 10 Mg Tab PO 10 mg QDAY LENY Administration Calcitriol 0.5 mcg 09/14/21 19:00 09/23/21 10:03 Calcitriol 0.5 Mcg Cap PO 0.5 mcg QDAY LENY Administration Carvedilol 6.25 mg 09/12/21 22:00 09/23/21 10:03 Carvedilol 6.25 Mg Tab PO 6.25 mg BID LENY Administration Epoetin Alex-epbx 8,000 unit 09/16/21 16:00 09/20/21 17:43 Epoetin Alex-Epbx 10,000 Unit/1 Ml Vial SUB-Q 8,000 unit MoWeFr LENY Administration Hydralazine HCl 10 mg 09/15/21 07:29 Hydralazine 20 Mg/1 Ml Inj IV Q4H PRN Hypertension Hydralazine HCl 50 mg 09/15/21 08:00 09/23/21 08:34 Hydralazine 25 Mg Tab PO 50 mg Q8H LENY Administration Sodium Chloride 1,000 mls @ 125 mls/hr 09/11/21 11:45 09/23/21 05:59 Nacl 0.9% 1000 Ml IV 75 mls/hr DIRECT LENY Administration Sodium Chloride 100 mls @ 999 mls/hr 09/14/21 09:58 Nacl 0.9% IV MARTI PRN Hypotension Sodium Chloride 100 mls @ 999 mls/hr 09/19/21 17:12 Nacl 0.9% IV MARTI PRN Hypotension Labetalol HCl 10 mg 09/11/21 11:09 Labetalol 20 Mg/4 Ml Inj IV Q4HR PRN sbp>160 Metoclopramide HCl 5 mg 09/14/21 09:00 Metoclopramide 10 Mg/2 Ml Inj IV Q8H PRN Nausea And Vomiting Morphine Sulfate 2 mg 09/09/21 20:24 09/20/21 21:28 Morphine 2 Mg/1 Ml Inj IV 2 mg Q4H PRN Administration Pain, Moderate (4-6) Ondansetron HCl 4 mg 09/09/21 20:24 09/11/21 03:43 Ondansetron 4 Mg/2 Ml Inj IV 4 mg Q3H PRN Administration Nausea And Vomiting Pantoprazole Sodium 40 mg 09/11/21 16:30 09/23/21 08:25 Pantoprazole 40 Mg Tab PO 40 mg BIDAC LENY Administration Sodium Chloride 10 ml 09/09/21 22:00 09/23/21 10:04 Sodium Chloride 0.9% 10 Ml Flush Syringe IV 10 ml BID LENY Administration Sodium Chloride 10 ml 09/09/21 20:24 Sodium Chloride 0.9% 10 Ml Flush Syringe IV PRN PRN LINE FLUSH Tamsulosin HCl 0.8 mg 09/11/21 12:00 09/23/21 10:02 Tamsulosin 0.4 Mg Cap PO 0.8 mg QDAY LENY Administration Nutrition/Malnutrition Assess - Dietary Evaluation Nutrition/Malnutrition Findings: Nutrition Notes Start: 09/10/21 15:32 Freq: Status: Active Protocol: Document 09/20/21 13:41 ALEX (Rec: 09/20/21 13:48 [facility] [id number]) Nutrition Notes Initial or Follow up Reassessment Current Diagnosis Acute Kidney Injury, Hypertension,Heart Failure Other Pertinent Diagnosis Obstructive uropathy, Anemia, EtOH dependence Current Diet Renal/Cardiac + Nepro BID Labs/Tests BUN 47 Cr 7.7 Pertinent Medications Calcitriol, Epoetin, NS at 125ml/hr Height 5 ft 8 in Weight 87.5 kg [place] Body Weight (kg) 70.00 BMI 29.3 Weight change and time frame Pt says current wt is accurate Weight Status Overweight Subjective/Other Information Pt reports very good appetite; he has consumed 89% of meals since last assessment. He drinks the Nepro shakes as well. Per nephrology, no need for HD today; pt to be assessed for HD needs on a daily basis. Percent of energy/protein needs met: 100% energy and pro (includes ONS) Burn Absent Trauma Absent #1 Nutrition Diagnosis Increased nutrient needs ( specify in comment below) Diagnosis Progress(for reassessment Continues documentation) Is patient on ventilator? No Is Patient Ambulatory and/or Out of Bed Yes REE-([facility]-ambulatory/OOB) [ [id number]] Calculation Used for Recommendations Giorgio Blanchard Additional Notes Pro needs >1.2g/kg: >105g/day Fluid needs 1ml/kcal Nutrition Intervention Change Diet Order: Continue current diet order Add Supplement/Snack (indicate name/kcal Nepro BID /protein ) Provides kCal: 850 Provides Protein (gm) 38 Goal #1 PO intake of meals plus ONS to continue to meet at least 75% energy and pro needs Revisit per MD consult or patient Sign Off request:
--- NOTE | 2021-09-23 11:28 | Progress Note ---
Assessment and Plan Assessment Severe renal failure secondary to obstructive uropathy Hyperkalemia Metabolic acidosis, now Alkalotic Uremia Acute Anemia Hypocalcemia/Hyperparathyroidsm Plan: Renal labs reviewed. Serum creatinine is 9.2 today, yesterday's serum creatinine was 8.5, non-oliguric, UOP 2100 ml Hemodialysis today for UF mainly, no UF Patient was initiated on hemodialysis on 09/10/21 due to severe renal failure coupled with severe Hyperkalemia and Acidosis CT AP showed BL hydronephrosis and bladder scan was positive for urinary retention. Urology consulted and placed león and recommended Flomax and to call them for león catheter removal On Flomax 0.8 mg po daily On IV hydration with NS at 125 ml/hr Hematology evaluating for HUS Hypocalcemia and Hyperparathyroidsm- on Calctriol Renally dose medications Avoid nephrotoxic agents Strict I&O's daily Obtain daily weights Assess dialysis needs daily Monitor for renal recovery Consulted vascular for perm catheter placement, currently patient is without insurance and unlikely will be able to assign outpatient HD clinic, case management onboard to assist with outpatient HD placement as best as possible, if cant find placement then will likely need HD via E.R when discharged Plan of care reviewed by Dr. Gregory Subjective Date of service: 09/23/21 Principal diagnosis: anemia, acute kidney failure Interval history: Patient seen lying in bed. Reviewed renal plan of care. No family at bedside. Objective - Vital Signs Vital signs: Vital Signs - 12hr 09/23/21 09/23/21 09/23/21 05:34 08:34 08:35 Temperature 98.4 F Pulse Rate 90 85 85 Respiratory 18 Rate Blood Pressure 138/81 152/87 Blood Pressure 157/87 [Right] O2 Sat by Pulse 97 Oximetry - General Appearance General appearance: well-developed, appears stated age EENT: ATNC, PERRL, hearing intact, vision intact Neck: no JVD, supple Respiratory: Present: Decreased Breath Sounds Cardiology: S1S2 Gastrointestinal: normoactive bowel sounds Integumentary: warm and dry Neurologic: alert and oriented x3 Musculoskeletal: other (No edema) - Lab 09/23/21 10:42 09/23/21 10:42 Most recent lab results ABG pH 7.100 pH Units (7.350-7.450) L* 09/09/21 21:00 ABG pCO2 20.0 mm Hg 09/09/21 21:00 ABG pO2 60.9 mm Hg (80.0-90.0) L 09/09/21 21:00 ABG HCO3 6.1 mmol/L (20.0-26.0) L 09/09/21 21:00 ABG O2 Saturation 81.1 % (95.0-99.0) L 09/09/21 21:00 Calcium 8.0 mg/dL (8.4-10.2) L 09/22/21 05:13 Phosphorus 2.70 mg/dL (2.5-4.5) 09/16/21 05:23 Magnesium 1.60 mg/dL (1.7-2.3) L 09/17/21 08:00 Urine Creatinine 18.3 mg/dL (0.1-20.0) 09/17/21 10:13 Urine Total Protein 201 mg/dL (5-11.8) H 09/10/21 11:35 Medications & Allergies - Medications Allergies/Adverse Reactions: Allergies No Known Allergies Allergy (Unverified 01/17/17 01:04) Home Medications: Home Medications Medication Instructions Recorded Confirmed Last Taken Type Acetaminophen/Codeine [Tylenol #3] 1 tab PO Q6H PRN #7 tab 01/17/17 09/14/21 U nknown Rx Ibuprofen [Motrin] 600 mg PO Q8H PRN #15 tablet 01/17/17 09/14/21 Unknown Rx methOCARBAMOL [Robaxin TAB] 500 mg PO Q6H PRN #15 tablet 01/17/17 09/14/21 Unknown Rx Active Medications: Generic Name Dose Route Start Last Admin Trade Name Dana PRN Reason Stop Dose Admin Acetaminophen 650 mg 09/09/21 20:24 09/19/21 22:40 Acetaminophen 325 Mg Tab PO 650 mg Q4H PRN Administration Pain MILD(1-3)/Fever >100.5/LOCO Alteplase, Recombinant 2 mg 09/19/21 17:12 09/19/21 17:15 Alteplase 2 Mg Inj IV 2 mg MARTI PRN Administration LINE FLUSH Amlodipine Besylate 10 mg 09/11/21 12:00 09/23/21 10:03 Amlodipine 10 Mg Tab PO 10 mg QDAY LENY Administration Calcitriol 0.5 mcg 09/14/21 19:00 09/23/21 10:03 Calcitriol 0.5 Mcg Cap PO 0.5 mcg QDAY LENY Administration Carvedilol 6.25 mg 09/12/21 22:00 09/23/21 10:03 Carvedilol 6.25 Mg Tab PO 6.25 mg BID LENY Administration Epoetin Alex-epbx 8,000 unit 09/16/21 16:00 09/20/21 17:43 Epoetin Alex-Epbx 10,000 Unit/1 Ml Vial SUB-Q 8,000 unit MoWeFr LENY Administration Hydralazine HCl 10 mg 09/15/21 07:29 Hydralazine 20 Mg/1 Ml Inj IV Q4H PRN Hypertension Hydralazine HCl 50 mg 09/15/21 08:00 09/23/21 08:34 Hydralazine 25 Mg Tab PO 50 mg Q8H LENY Administration Sodium Chloride 1,000 mls @ 125 mls/hr 09/11/21 11:45 09/23/21 05:59 Nacl 0.9% 1000 Ml IV 75 mls/hr DIRECT LENY Administration Sodium Chloride 100 mls @ 999 mls/hr 09/14/21 09:58 Nacl 0.9% IV MARTI PRN Hypotension Sodium Chloride 100 mls @ 999 mls/hr 09/19/21 17:12 Nacl 0.9% IV MARTI PRN Hypotension Labetalol HCl 10 mg 09/11/21 11:09 Labetalol 20 Mg/4 Ml Inj IV Q4HR PRN sbp>160 Metoclopramide HCl 5 mg 09/14/21 09:00 Metoclopramide 10 Mg/2 Ml Inj IV Q8H PRN Nausea And Vomiting Morphine Sulfate 2 mg 09/09/21 20:24 09/20/21 21:28 Morphine 2 Mg/1 Ml Inj IV 2 mg Q4H PRN Administration Pain, Moderate (4-6) Ondansetron HCl 4 mg 09/09/21 20:24 09/11/21 03:43 Ondansetron 4 Mg/2 Ml Inj IV 4 mg Q3H PRN Administration Nausea And Vomiting Pantoprazole Sodium 40 mg 09/11/21 16:30 09/23/21 08:25 Pantoprazole 40 Mg Tab PO 40 mg BIDAC LENY Administration Sodium Chloride 10 ml 09/09/21 22:00 09/23/21 10:04 Sodium Chloride 0.9% 10 Ml Flush Syringe IV 10 ml BID LENY Administration Sodium Chloride 10 ml 09/09/21 20:24 Sodium Chloride 0.9% 10 Ml Flush Syringe IV PRN PRN LINE FLUSH Tamsulosin HCl 0.8 mg 09/11/21 12:00 09/23/21 10:02 Tamsulosin 0.4 Mg Cap PO 0.8 mg QDAY LENY Administration
[2021-09-23 11:32] LABS: Basophils # (Auto) 0.1 K/mm3 (0.0-0.1); Basophils % (Auto) 1.6 % (0.0-1.8); Eosinophils # (Auto) 0.3 K/mm3 (0.0-0.4); Eosinophils % (Auto) 3.5 % (0.0-4.3); Hematocrit 25.2 % (35.5-45.6); Hemoglobin 8.4 gm/dl (11.8-15.2); Lymphocytes # (Auto) 1.1 K/mm3 (1.2-5.4); Lymphocytes % (Auto) 15.1 % (13.4-35.0); Mean Corpuscular HGB Conc 33 % (32-34); Mean Corpuscular Volume 87 fl (84-94); Monocytes # (Auto) 0.7 K/mm3 (0.0-0.8); Monocytes % (Auto) 9.5 % (0.0-7.3); Platelet Count 366 K/mm3 (140-440)
[2021-09-23 11:46] LABS: Hemolysis Index 133
[2021-09-23 11:48] LABS: BUN/Creatinine Ratio TNR; Blood Urea Nitrogen TNR mg/dL (9-20)
[2021-09-23 11:49] LABS: Calcium TNR mg/dL (8.4-10.2)
--- NOTE | 2021-09-23 12:23 | Event Note ---
Date: 09/23/21 Reviewed patient and found full diet ordered. Made NPO after MN except sips of water with meds for permcath placement tomorrow.
[2021-09-24] MEDS: SODIUM CHLORIDE 0.9% 1000 ML 1,000 ML IV SCH ×2 (04:33→18:20)
[2021-09-24 06:20] LABS: Basophils # (Auto) 0.1 K/mm3 (0.0-0.1); Eosinophils # (Auto) 0.2 K/mm3 (0.0-0.4); Eosinophils % (Auto) 2.8 % (0.0-4.3); Hematocrit 23.5 % (35.5-45.6); Hemoglobin 7.5 gm/dl (11.8-15.2); Lymphocytes # (Auto) 1.3 K/mm3 (1.2-5.4); Lymphocytes % (Auto) 20.7 % (13.4-35.0); Mean Corpuscular HGB Conc 32 % (32-34); Mean Corpuscular Volume 87 fl (84-94); Monocytes % (Auto) 15.6 % (0.0-7.3); Platelet Count 328 K/mm3 (140-440); Red Blood Count 2.69 M/mm3 (3.65-5.03); Red Cell Distribution Width 16.5 % (13.2-15.2)
[2021-09-24 06:41] LABS: Calcium 8.4 mg/dL (8.4-10.2)
[2021-09-24] MEDS ORDERED: SODIUM CHLORIDE 0.9% 250ML 250 ML ONE (08:32)
[2021-09-24] MEDS ORDERED: HEPARIN/NS 5000 UNIT/500ML 500 ML IR ONE (08:32)
[2021-09-24] MEDS ORDERED: HEPARIN 10,000 UNITS/10 ML VIAL ONE (08:32)
[2021-09-24] MEDS ORDERED: ceFAZolin/Water 2 GM/20 ML 2 GM/20 ML SYRINGE IV ONE (09:03)
[2021-09-24] MEDS: fentaNYL 100 MCG/2 ML INJ ONE ×3 (09:07→09:22)
[2021-09-24] MEDS: MIDAZOLAM 2 MG/2 ML INJ ONE ×3 (09:08→09:23)
[2021-09-24] MEDS: LIDOCAINE 2%/EPINEPHRINE 1:200,000 VIAL (20 ML) INFILTRATI ONE ×3 (09:08→09:23)
--- NOTE | 2021-09-24 09:18 | Progress Note ---
Assessment and Plan Severe renal failure secondary to obstructive uropathy Hyperkalemia Metabolic acidosis, now Alkalotic Uremia Acute Anemia Hypocalcemia/Hyperparathyroidsm Plan: Permcath placement today, no indication for HD Patient was initiated on hemodialysis on 09/10/21 due to severe renal failure coupled with severe Hyperkalemia and Acidosis CT AP showed BL hydronephrosis and bladder scan was positive for urinary retention. Urology consulted and placed león and recommended Flomax and to call them for león catheter removal On Flomax 0.8 mg po daily Hematology evaluating for HUS Hypocalcemia and Hyperparathyroidsm- on Calctriol Renally dose medications Avoid nephrotoxic agents Strict I&O's daily Obtain daily weights Assess dialysis needs daily Monitor for renal recovery Currently patient is without insurance and unlikely will be able to assign outpatient HD clinic, case management onboard to assist with outpatient HD placement as best as possible, if cant find placement then will likely need HD via E.R when discharged Subjective Date of service: 09/24/21 Principal diagnosis: anemia, acute kidney failure Interval history: No overnight events Objective - Vital Signs Vital signs: Vital Signs - 12hr 09/23/21 09/23/21 09/23/21 21:32 22:03 23:00 Temperature 98.4 F Pulse Rate 91 H 91 H Pulse Rate [ Radial] Respiratory 18 17 Rate Blood Pressure 162/84 162/84 O2 Sat by Pulse 90 97 Oximetry 09/23/21 09/24/21 09/24/21 23:40 04:47 08:33 Temperature 98.4 F Pulse Rate 84 83 Pulse Rate [ 83 Radial] Respiratory 18 20 Rate Blood Pressure 148/77 148/82 O2 Sat by Pulse 95 95 Oximetry - Lab 09/24/21 05:09 09/24/21 05:09 Most recent lab results ABG pH 7.100 pH Units (7.350-7.450) L* 09/09/21 21:00 ABG pCO2 20.0 mm Hg 09/09/21 21:00 ABG pO2 60.9 mm Hg (80.0-90.0) L 09/09/21 21:00 ABG HCO3 6.1 mmol/L (20.0-26.0) L 09/09/21 21:00 ABG O2 Saturation 81.1 % (95.0-99.0) L 09/09/21 21:00 Calcium 8.4 mg/dL (8.4-10.2) 09/24/21 05:09 Phosphorus 2.70 mg/dL (2.5-4.5) 09/16/21 05:23 Magnesium 2.00 mg/dL (1.7-2.3) 09/23/21 12:05 Urine Creatinine 18.3 mg/dL (0.1-20.0) 09/17/21 10:13 Urine Total Protein 201 mg/dL (5-11.8) H 09/10/21 11:35 Medications & Allergies - Medications Allergies/Adverse Reactions: Allergies No Known Allergies Allergy (Unverified 01/17/17 01:04) Home Medications: Home Medications Medication Instructions Recorded Confirmed Last Taken Type Acetaminophen/Codeine [Tylenol #3] 1 tab PO Q6H PRN #7 tab 01/17/17 09/14/21 Unknown Rx Ibuprofen [Motrin] 600 mg PO Q8H PRN #15 tablet 01/17/17 09/14/21 Unknown Rx methOCARBAMOL [Robaxin TAB] 500 mg PO Q6H PRN #15 tablet 01/17/17 09/14/21 Unknown Rx Active Medications: Generic Name Dose Route Start Last Admin Trade Name Freq PRN Reason Stop Dose Admin Acetaminophen 650 mg 09/09/21 20:24 09/19/21 22:40 Acetaminophen 325 Mg Tab PO 650 mg Q4H PRN Administration Pain MILD(1-3)/Fever >100.5/LOCO Amlodipine Besylate 10 mg 09/11/21 12:00 09/23/21 10:03 Amlodipine 10 Mg Tab PO 10 mg QDAY LENY Administration Calcitriol 0.5 mcg 09/14/21 19:00 09/23/21 10:03 Calcitriol 0.5 Mcg Cap PO 0.5 mcg QDAY LENY Administration Carvedilol 6.25 mg 09/12/21 22:00 09/23/21 22:03 Carvedilol 6.25 Mg Tab PO 6.25 mg BID LENY Administration Epoetin Alex-epbx 8,000 unit 09/16/21 16:00 09/20/21 17:43 Epoetin Alex-Epbx 10,000 Unit/1 Ml Vial SUB-Q 8,000 unit MoWeFr LENY Administration Hydralazine HCl 10 mg 09/15/21 07:29 Hydralazine 20 Mg/1 Ml Inj IV Q4H PRN Hypertension Hydralazine HCl 50 mg 09/15/21 08:00 09/23/21 23:40 Hydralazine 25 Mg Tab PO 50 mg Q8H LENY Administration Sodium Chloride 1,000 mls @ 125 mls/hr 09/11/21 11:45 09/24/21 04:33 Nacl 0.9% 1000 Ml IV 75 mls/hr DIRECT LENY Administration Sodium Chloride 100 mls @ 999 mls/hr 09/19/21 17:12 Nacl 0.9% IV MARTI PRN Hypotension Labetalol HCl 10 mg 09/11/21 11:09 Labetalol 20 Mg/4 Ml Inj IV Q4HR PRN sbp>160 Metoclopramide HCl 5 mg 09/14/21 09:00 Metoclopramide 10 Mg/2 Ml Inj IV Q8H PRN Nausea And Vomiting Morphine Sulfate 2 mg 09/09/21 20:24 09/20/21 21:28 Morphine 2 Mg/1 Ml Inj IV 2 mg Q4H PRN Administration Pain, Moderate (4-6) Ondansetron HCl 4 mg 09/09/21 20:24 09/11/21 03:43 Ondansetron 4 Mg/2 Ml Inj IV 4 mg Q3H PRN Administration Nausea And Vomiting Pantoprazole Sodium 40 mg 09/11/21 16:30 09/23/21 08:25 Pantoprazole 40 Mg Tab PO 40 mg BIDAC LENY Administration Sodium Chloride 10 ml 09/09/21 22:00 09/23/21 22:03 Sodium Chloride 0.9% 10 Ml Flush Syringe IV 10 ml BID LENY Administration Sodium Chloride 10 ml 09/09/21 20:24 Sodium Chloride 0.9% 10 Ml Flush Syringe IV PRN PRN LINE FLUSH Tamsulosin HCl 0.8 mg 09/11/21 12:00 09/23/21 10:02 Tamsulosin 0.4 Mg Cap PO 0.8 mg QDAY LENY Administration
[2021-09-24] MEDS ORDERED: LIDOCAINE 2%/EPINEPHRINE 1:200,000 VIAL (20 ML) INFILTRATI ONE (09:23)
--- NOTE | 2021-09-24 09:50 | Operative Report ---
Operative Report Operative Report: EXAM: 1. Fluoroscopic-guided placement of a right internal jugular tunneled cuffed hemodialysis catheter. DATE: 09/24/2021 INDICATION: End-stage renal disease requiring hemodialysis access. MEDICATIONS: Please see nursing report for full details. DEVICES: 23 cm tip to cuff dual lumen hemodialysis catheter CLAIMS ASSISTANT: TRACY MORRIS MD CONTRAST: None PROCEDURE: The risks, benefits, and alternatives were discussed and informed consent was obtained. The patient was transported to the angiography suite in satisfactory/stable condition and was transported onto the angiography table. Ultrasound was used to evaluate the right internal jugular vein which was accessed with a Vas-Cath in the lumen of the vessel. The right internal jugular vein had a mixed density thrombus within it. The patient was prepped and draped in a sterile fashion. The existing vascath was prepped and draped in a sterile fashion. Suture was cut. 0.035 inch wire was advanced through the Vas-Cath into the IVC. Vas-Cath was removed. The wire was cleaned with ChloraPrep. Over the 0.035 inch wire, serial dilatation was performed with ultimate placement of a peel-away sheath. Reverse tunneled PermCath was inserted to the peel-away sheath and positioned in the right atrium. Peel-away sheath removed. A suitable exit site was identified on the patient's chest inferior and lateral to the venotomy. The site was anesthetized with local anesthetic and the track was anesthetized. Dermatotomy was made. Reverse tunneler was then tunneled from dermatotomy to the venotomy site/catheter. The PermCath was attached to the tunneling device and reverse tunneled between the dermatotomy to the venotomy. The catheter was reassembled. 4-0 Vicryl suture was used to close the venotomy and Dermabond was then applied. 2-0 Ethilon suture was used to secure the catheter at the dermatotomy. The catheter was charged with heparin 1000 units/mL space. Sterile dressing and Biopatch applied. The patient was transferred from the angiography suite back to the floor in stable condition. FINDINGS: 1. Excellent flow was obtained through the dialysis catheter with 20 mL syringes. 2. The catheter tip is in the right atrium. IMPRESSION: 1. Fluoroscopic-guided placement of a right internal jugular tunneled cuffed hemodialysis catheter.
--- NOTE | 2021-09-24 10:01 | Progress Note ---
Assessment and Plan Assessment and plan: HPI per admitting doctor: 61 years old male with past medical history of chronic kidney disease was brought to the hospital because of progressive shortness of breath as stated with vomiting and bleeding from nose for 1 day. Patient is a very poor historian. In the emergency room patient is found to have hemoglobin of 4.8 and hematocrit 14.9 also patient is found to have potassium of 7.1, bicarb 4, anion gap 54, BUN to 38 and creatinine 48.4, lactic acid 2.80. ABG shows pH 7.100, PCO2 20+0, PO2 60.9, bicarb 6.1. The patient was admitted to critical care and underwent emergent hemodialysis. Hospital Course: 09/10: Improved on bedside encounter. Urology placed león catheter. Plan for nephrology to complete HD today. Hgb improved to 8.3, suspect anemia is purely from epistaxis, unclear if there was truly was a GI source. Will continue to m onitor for other source of bleed. GI consulted, will follow recommendations. 09/11: hemoglobin stable. patient on encounter states he had recurrent epistaxis bleed leading up to hospitalization. Hgb stable this AM. Renal indices improved on bmp. Urine output 1000 cc yesterday. Troponin downtrending. D/w Dr. Juan A Martin, will d/c protonix IV, start on protonix 40 mg po bid. Transfer to floor bed. 09/12: Doing well on encounter today. on room air saturating 98%. Renal indices improving. León output approx: 2500 cc yday. [place] tingued urine noted, clearing up. hemoglobin 8.1, VSS. No plan for HD today per nephrology. We will continue to follow along for hemodialysis plan moving forward and nephrology final impression on renal prognosis. Anticipate d/c in next 24-48 hrs depending on this. Patient will likely need to be discharged with León catheter and instructions to follow-up with urology as an outpatient. 09/13: Patient remains clinically stable. Renal function appears to slightly worsened today. Nephrology noted the slight worsening. Will reevaluate in a.m. Patient undergoing 24-hour urine collection. From respiratory standpoint patient is stable acute respiratory failure secondary to fluid overload has resolved. Plan discussed with the patient in detail he verbalized understanding. 15 minutes counseling provided to the patient about continued cessation of EtOH use on lifestyle preventive care measures. We will monitor potassium level and slight of renal failure. 09/14: Patient seen and examined this morning hypokalemia persist also hypocalcemia we will replace both potassium and calcium. Patient advised by scientific associate that he will be having dialysis today as creatinine is gradually creeping back up to 11.2 today. León remains in place with good urine output. Patient understands he will have to go home with a León and follow-up with urologist. Based on discussion with nephrology will determine if her permacath needs to be placed prior to discharge. I have also updated the and answered all questions. At this time awaiting renal recovery if possible. We will continue to monitor H&H 09/15: Patient seen and examined, no new complaints, review of labs shows improvement of renal function following HD yesterday, however HGB still decreasing. Will order a unit of PRBC and Hematology consultation. Further management and discharge plan depends on renal recovery and Nephrology input. Patient updated. 09/16: Patient seen and examined this morning. some response to blood transfusion noted. Reached out to nephrology to see if we should start planning for outpatient dialysis for this patient with the upward trend of creatinine f ollowing 2 days after dialysis. Appears the patient will get hemodialyzed again today. Overall concern for this patient is that he is got multiple issues pointing towards a poor renal resolution without dialysis outpatient. Will await nephrology input. He has had 4 units of packed red blood cell. Hemoglobin is at 7.7 09/17: Nephrology to hold hemodialysis today and monitor for renal recovery off hemodialysis. IV fluid increased. Follow-up 24-hour urine collection. Patient was initiated on hemodialysis on 09/10/21 due to severe renal failure coupled with severe Hyperkalemia and Acidosis. CT AP showed BL hydronephrosis and bladder scan was positive for urinary retention. Urology consulted and placed león and recommended Flomax and to call them for león catheter removal. Continue on Flomax 0.8 mg daily. Monitor post obstructive diuresis closely. Renally dose medications. Avoid nephrotoxic agents. Strict I&O's daily. Obtain daily weights. Assess dialysis needs daily. Follow-up labs LDH, retic, hemoglobin electrophoresis, spep. Hematology started Ferrlecit. Transfuse for hemoglobin less than 7 09/18: Hematology suspects hemolytic uremic syndrome. Follow-up labs for Carole, [id number] test , If [id number] >10% then confidently say HUS. Also follow- up hemoglobin electrophoresis and SPEP. Continue Retacrit 3 times a week and Ferrlecit. Patient will need outpatient [facility] hematology referral. Nephrology held HD on 09/17 to monitor for renal recovery without hemodialysis. Awaiting final decision on HD needs on an outpatient basis. [facility], as patient is self-pay, at this time. \ 09/19: Patient seen in hemodialysis. Continue to follow-up serologies. HemOnc is evaluating pt for possible HUS. If HUS, pt may require plasmapheresis. Will follow up HemOnc work up. Follow-up hemoglobin electrophoresis and SPEP. Patient will need outpatient [facility] hematology referral. 09/20: Follow-up labs for Carole, [id number] test , If [id number] >10% then confidently say HUS. Also follow-up hemoglobin electrophoresis and SPEP. Continue Retacrit 3 times a week and Ferrlecit. Patient will need outpatient [facility] hematology referral. Patient had hemodialysis yesterday for clearance only. Patient has had good UOP. Continue to monitor for signs of renal recovery. 09/21: Nephrology reports BUN and creatinine continue to rise off hemodialysis however good urinary output. No indication for hemodialysis today. Continue to monitor for signs of renal recovery. Work-up for possible HUS per hematology. Continue Flomax, Calcitrol, Retacrit and Ferrlecit. Strict I&O's daily 09/22: Nephrology reports patient will likely have hemodialysis tomorrow. Continue to follow work-up by hematology for possible HUS. If no signs of renal recovery, pt will require perm catheter placement, likely Thursday, currently patient is without insurance and unlikely will be able to assign outpatient HD clinic. CT AP showed BL hydronephrosis and bladder scan was positive for urinary retention. Urology consulted and placed león and recommended Flomax and to call them for león catheter removal. Continue Flomax and calcitriol. Renally dose medications. Strict I&O's daily 09/23: Await BMP results today. Nephrology reports If no signs of renal recovery, pt will require perm catheter placement, likely today. Await nephrology recommendations. Unfortunately patient is without insurance and un likely to be able to have assigned outpatient hemodialysis clinic. Case management is working closely to possibly arrange outpatient clinic. CT AP showed BL hydronephrosis and bladder scan was positive for urinary retention. Urology consulted and placed león and recommended Flomax and to call them for león catheter removal. Continue Flomax and calcitriol. Renally dose medications. Strict I&O's daily. Work-up for possible HUS per hematology. 09/24: Assessment and Plan: Acute kidney injury due to post renal obstruction Metabolic Acidosis (resolving) Lactic Acidosis 2.8-> 2.1 (resolved) Acute heart failure with preserved ejection fraction (ef 45-50%) Hyperkalemia (resolved) Hypokalemia Uremia (resolved) Urinary retention (resolving) Hypocalcemia Prostateamegaly - psa elevated to 5.18 - monitor electrolytes on serial renal profile - strict I/O, close UOP monitoring - avoid nephrotoxins, renally adjust medications Acute hypoxic respiratory failure (resolved) - O2 sat as low as 56% on admission, currently on room air satting greater than 92% - cxr: no acute findings. - pulmonology following Acute metabolic encephalopathy (resolved) - likely due to uremia - improving hypertension - elevated BP - coreg dose increased, hold linsey-i due to renal fx. Anemia s/p prbcs (stable) likely secondary epistatixis and renal insufficiency. R/o hemoglobinopathy, hemolytic anemia Unable to evaluate iron studies post RBC transfusions Epistaxis (appears resolved) - hx of recurrent epistaxis per son, patient had increased uncontrolled bleeding for 1 day. No prior hx of GI bleed or reported blood in stool. Uremia could have precipitated bleed. - Hgb: 4.8 on admission, s/p 4 units prbc, now 8's - transfuse prn Hgb< 7. - GI consulted due to concern for GI bleed on admission - protonix 40 mg po bid - unclear if this is truly GI source Type II myocardial infarction (resolved) - supply demand from anemia in the setting TIFFANIE - serial troponins ordered, downtrending. -cardiology following, no intervention at this time. EtOH use disorder person patient stopped a few weeks ago. Sepsis ruled out, doubt infectious etiology. History Interval history: No acute complaints. Hospitalist Physical - Physical exam Narrative exam: General appearance: Present: no acute distress, well-nourished, resting comfortably. alert, comfortable, nad. - EENT Eyes: Present: PERRL ENT: hearing intact, clear oral mucosa - Neck Neck: Present: supple, normal ROM, s/p RT permacath placement - Respiratory Respiratory effort: normal Respiratory: bilateral: diminished - Cardiovascular Heart Sounds: Present: S1 & S2. Absent: rub, click - Extremities Extremities: pulses symmetrical, No edema Peripheral Pulses: within normal limits - Abdominal General gastrointestinal: Present: soft, non-tender, non-distended, normal bowel sounds Male genitourinary: Present: normal - Integumentary Integumentary: Present: clear, warm, dry - Musculoskeletal Musculoskeletal: gait normal, strength equal bilaterally - Psychiatric Psychiatric: appropriate mood/affect, intact judgment & insight - Neurologic Neurologic: CNII-XII intact, moves all extremities : león catheter in place, light pink tissue in león bag. - Constitutional Vitals: Temp Pulse Resp BP Pulse Ox 98.4 F 83 20 148/82 95 09/24/21 04:47 09/24/21 08:33 09/24/21 08:33 09/24/21 04:47 09/24/21 08:33 General appearance: Present: no acute distress HEART Score - HEART Score Troponin: Troponin T 0.158 ng/mL (0.00-0.029) H* 09/10/21 Unknown Results - Labs CBC & Chem 7: 09/24/21 05:09 09/24/21 05:09 Labs: Laboratory Last Values WBC 6.3 K/mm3 (4.5-11.0) 09/24/21 05:09 RBC 2.69 M/mm3 (3.65-5.03) L 09/24/21 05:09 Hgb 7.5 gm/dl (11.8-15.2) L 09/24/21 05:09 Hct 23.5 % (35.5-45.6) L 09/24/21 05:09 MCV 87 fl (84-94) 09/24/21 05:09 MCH 28 pg (28-32) 09/24/21 05:09 MCHC 32 % (32-34) 09/24/21 05:09 RDW 16.5 % (13.2-15.2) H 09/24/21 05:09 Plt Count 328 K/mm3 (140-440) 09/24/21 05:09 Lymph % (Auto) 20.7 % (13.4-35.0) 09/24/21 05:09 [place] % (Auto) 15.6 % (0.0-7.3) H 09/24/21 05:09 Eos % (Auto) 2.8 % (0.0-4.3) 09/24/21 05:09 Baso % (Auto) 1.0 % (0.0-1.8) 09/24/21 05:09 Lymph # (Auto) 1.3 K/mm3 (1.2-5.4) 09/24/21 05:09 [place] # (Auto) 1.0 K/mm3 (0.0-0.8) H 09/24/21 05:09 Eos # (Auto) 0.2 K/mm3 (0.0-0.4) 09/24/21 05:09 Baso # (Auto) 0.1 K/mm3 (0.0-0.1) 09/24/21 05:09 Add Manual Diff Complete 09/18/21 05:08 Total Counted 100 09/18/21 05:08 Seg Neutrophils % 59.9 % (40.0-70.0) 09/24/21 05:09 Seg Neuts % (Manual) 73.0 % (40.0-70.0) H 09/18/21 05:08 Band Neutrophils % 0 % 09/18/21 05:08 Lymphocytes % (Manual) 14.0 % (13.4-35.0) 09/18/21 05:08 Reactive Lymphs % (Man) 0 % 09/18/21 05:08 Monocytes % (Manual) 10.0 % (0.0-7.3) H 09/18/21 05:08 Eosinophils % (Manual) 3.0 % (0.0-4.3) 09/18/21 05:08 Basophils % (Manual) 0 % (0.0-1.8) 09/18/21 05:08 Metamyelocytes % 0 % 09/18/21 05:08 Myelocytes % 0 % 09/18/21 05:08 Promyelocytes % 0 % 09/18/21 05:08 Blast Cells % 0 % 09/18/21 05:08 Nucleated RBC % Not Reportable 09/18/21 05:08 Seg Neutrophils # 3.8 K/mm3 (1.8-7.7) 09/24/21 05:09 Seg Neutrophils # Man 6.5 K/mm3 (1.8-7.7) 09/18/21 05:08 Band Neutrophils # 0.0 K/mm3 09/18/21 05:08 Lymphocytes # (Manual) 1.2 K/mm3 (1.2-5.4) 09/18/21 05:08 Abs React Lymphs (Man) 0.0 K/mm3 09/18/21 05:08 Monocytes # (Manual) 0.9 K/mm3 (0.0-0.8) H 09/18/21 05:08 Eosinophils # (Manual) 0.3 K/mm3 (0.0-0.4) 09/18/21 05:08 Basophils # (Manual) 0.0 K/mm3 (0.0-0.1) 09/18/21 05:08 Metamyelocytes # 0.0 K/mm3 09/18/21 05:08 Myelocytes # 0.0 K/mm3 09/18/21 05:08 Promyelocytes # 0.0 K/mm3 09/18/21 05:08 Blast Cells # 0.0 K/mm3 09/18/21 05:08 WBC Morphology Not Reportable 09/18/21 05:08 Hypersegmented Neuts Not Reportable 09/18/21 05:08 Hyposegmented Neuts Not Reportable 09/18/21 05:08 Hypogranular Neuts Not Reportable 09/18/21 05:08 Smudge Cells Not Reportable 09/18/21 05:08 Toxic Granulation Rare 09/18/21 05:08 Toxic Vacuolation Not Reportable 09/18/21 05:08 Dohle Bodies Not Reportable 09/18/21 05:08 Pelger-Huet Anomaly Not Reportable 09/18/21 05:08 Francisco Javier Rods Not Reportable 09/18/21 05:08 Platelet Estimate Consistent w auto 09/18/21 05:08 Clumped Platelets Not Reportable 09/18/21 05:08 Plt Clumps, EDTA Not Reportable 09/18/21 05:08 Large Platelets Not Reportable 09/18/21 05:08 Giant Platelets Not Reportable 09/18/21 05:08 Platelet Satelliting Not Reportable 09/18/21 05:08 Plt Morphology Comment Not Reportable 09/18/21 05:08 RBC Morphology Not Reportable 09/18/21 05:08 Dimorphic RBCs Not Reportable 09/18/21 05:08 Polychromasia Few 09/18/21 05:08 Hypochromasia Not Reportable 09/18/21 05:08 Poikilocytosis Not Reportable 09/18/21 05:08 Anisocytosis Not Reportable 09/18/21 05:08 Microcytosis Not Reportable 09/18/21 05:08 Macrocytosis Few 09/18/21 05:08 Spherocytes Not Reportable 09/18/21 05:08 Pappenheimer Bodies Not Reportable 09/18/21 05:08 Sickle Cells Not Reportable 09/18/21 05:08 Target Cells Not Reportable 09/18/21 05:08 Tear Drop Cells Not Reportable 09/18/21 05:08 Ovalocytes Not Reportable 09/18/21 05:08 Stomatocytes Rare 09/10/21 Unknown Helmet Cells Not Reportable 09/18/21 05:08 [place] Bodies Not Reportable 09/18/21 05:08 [place] Rings Not Reportable 09/18/21 05:08 [place] Cells Not Reportable 09/18/21 05:08 Bite Cells Not Reportable 09/18/21 05:08 Crenated Cell Not Reportable 09/18/21 05:08 Elliptocytes Not Reportable 09/18/21 05:08 Acanthocytes (Spur) Not Reportable 09/18/21 05:08 Rouleaux Not Reportable 09/18/21 05:08 Hemoglobin C Crystals Not Reportable 09/18/21 05:08 Schistocytes Not Reportable 09/18/21 05:08 Malaria parasites Not Reportable 09/18/21 05:08 Percent Retic 2.51 % (0.78-2.58) 09/17/21 10:13 Jose Bodies Not Reportable 09/18/21 05:08 Hem Pathologist Commnt No 09/18/21 05:08 PT 16.6 Sec. (12.2-14.9) H 09/09/21 18:53 INR 1.20 (0.87-1.13) H 09/09/21 18:53 D-Dimer 2203.38 ng/mlDDU (0-234) H 09/09/21 18:53 ABG pH 7.100 pH Units (7.350-7.450) L* 09/09/21 21:00 ABG pCO2 20.0 mm Hg 09/09/21 21:00 ABG pO2 60.9 mm Hg (80.0-90.0) L 09/09/21 21:00 ABG HCO3 6.1 mmol/L (20.0-26.0) L 09/09/21 21:00 ABG O2 Saturation 81.1 % (95.0-99.0) L 09/09/21 21:00 ABG O2 Content 4.8 (0.0-44) 09/09/21 21:00 ABG Base Excess -21.5 mmol/L (-2.0-3.0) L 09/09/21 21:00 ABG Hemoglobin 5.0 gm/dl (14.0-18.0) L 09/09/21 21:00 ABG Carboxyhemoglobin 1.3 % (0.0-5.0) 09/09/21 21:00 ABG Methemoglobin 0.5 % (0.0-1.5) 09/09/21 21:00 Oxyhemoglobin 79.7 % (95.0-99.0) L 09/09/21 21:00 FiO2 28 % 09/09/21 21:00 Sodium 144 mmol/L (137-145) 09/24/21 05:09 Potassium 5.0 mmol/L (3.6-5.0) 09/24/21 05:09 Chloride 107.4 mmol/L (98-107) H 09/24/21 05:09 Carbon Dioxide 24 mmol/L (22-30) D 09/24/21 05:09 Anion Gap 18 mmol/L 09/24/21 05:09 BUN 54 mg/dL (9-20) H 09/24/21 05:09 Creatinine 7.2 mg/dL (0.8-1.3) H 09/24/21 05:09 Estimated GFR 9 ml/min 09/24/21 05:09 BUN/Creatinine Ratio 8 % 09/24/21 05:09 Glucose 76 mg/dL (75-100) 09/24/21 05:09 POC Glucose 147 mg/dL (70-105) H 09/10/21 07:35 Lactic Acid 2.10 mmol/L (0.7-2.0) H* 09/09/21 20:49 Calcium 8.4 mg/dL (8.4-10.2) 09/24/21 05:09 Phosphorus 2.70 mg/dL (2.5-4.5) 09/16/21 05:23 Magnesium 2.00 mg/dL (1.7-2.3) 09/23/21 12:05 Total Bilirubin 0.30 mg/dL (0.1-1.2) 09/09/21 18:53 AST 17 units/L (5-40) 09/09/21 18:53 ALT 19 units/L (7-56) 09/09/21 18:53 Alkaline Phosphatase 57 units/L (35-129) 09/09/21 18:53 Ammonia 39.0 umol/L (25-60) 09/09/21 19:02 Lactate Dehydrogenase 312 units/L (91-180) H 09/17/21 10:13 Total Creatine Kinase 1530 units/L (55-170) H 09/10/21 Unknown CK-MB (CK-2) 21.4 ng/mL (0.0-4.0) H 09/09/21 18:53 CK-MB (CK-2) Rel Index 1.2 (0-4) 09/09/21 18:53 Troponin T 0.158 ng/mL (0.00-0.029) H* 09/10/21 Unknown C-Reactive Protein 1.50 mg/dL (0.00-1.30) H 09/09/21 18:53 NT-Pro-B Natriuret Pep 6011 pg/mL (0-900) H 09/09/21 18:53 Serum Total Protein 5.4 g/dL (6.1-8.1) L 09/17/21 10:13 Total Protein 7.4 g/dL (6.3-8.2) 09/09/21 18:53 Albumin 2.5 g/dL (3.8-4.8) L 09/17/21 10:13 Albumin/Globulin Ratio 1.3 % 09/09/21 18:53 Ylvpp-1-Eccvqrbsj 0.5 g/dL (0.2-0.3) H 09/17/21 10:13 Oqvfl-3-Gyeqwhhbd 1.0 g/dL (0.5-0.9) H 09/17/21 10:13 Beta Globulins 0.4 g/dL (0.2-0.5) 09/17/21 10:13 Gamma Globulins 0.8 g/dL (0.8-1.7) 09/17/21 10:13 Abnorm Protein Band 1 see below 09/17/21 10:13 PEP Interpretation see below H 09/17/21 10:13 Triglycerides 177 mg/dL (2-149) H 09/09/21 18:53 Cholesterol 170 mg/dL (50-199) 09/09/21 18:53 LDL Cholesterol Direct 107 mg/dL (50-130) 09/09/21 18:53 HDL Cholesterol 28 mg/dL (40-59) L 09/09/21 18:53 Cholesterol/HDL Ratio 6.07 % 09/09/21 18:53 Lipase 1198 units/L (13-60) H 09/09/21 18:53 Prostate Specific Ag 5.18 ng/mL (0.00-4.00) H 09/10/21 Unknown 25-OH Vitamin D Total 7 ng/mL (30-100) L 09/14/21 22:47 25-Hydroxy Vitamin D2 <4 ng/mL 09/14/21 22:47 25-Hydroxy Vitamin D3 7 ng/mL 09/14/21 22:47 PTH Intact 259.3 pg/mL (15-65) H 09/14/21 23:27 Urine Color Straw (Yellow) 09/09/21 11:35 Urine Turbidity Clear (Clear) 09/09/21 11:35 Urine pH 6.0 (5.0-7.0) 09/09/21 11:35 Ur Specific [place] 1.011 (1.003-1.030) 09/09/21 11:35 Urine Protein 100 mg/dl mg/dL (Negative) 09/09/21 11:35 Urine Glucose (UA) 50 mg/dL (Negative) 09/09/21 11:35 Urine Ketones Neg mg/dL (Negative) 09/09/21 11:35 Urine Blood Mod (Negative) 09/09/21 11:35 Urine Nitrite Neg (Negative) 09/09/21 11:35 Urine Bilirubin Neg (Negative) 09/09/21 11:35 Urine Urobilinogen < 2.0 mg/dL (<2.0) 09/09/21 11:35 Ur Leukocyte Esterase Neg (Negative) 09/09/21 11:35 Urine WBC (Auto) 2.0 /HPF (0.0-6.0) 09/09/21 11:35 Urine RBC (Auto) 11.0 /HPF (0.0-6.0) 09/09/21 11:35 Urine Total Volume 3750 ml 09/17/21 10:13 Urine Creatinine 18.3 mg/dL (0.1-20.0) 09/17/21 10:13 Height (in) 68.0 inches 09/17/21 10:13 Weight (lb) 130.0 lbs 09/17/21 10:13 Creatinine Clearance 7 09/17/21 10:13 Protein/Creatinin Ratio 1.78 09/10/21 11:35 Urine Total Protein 201 mg/dL (5-11.8) H 09/10/21 11:35 Urine Opiates Screen Presumptive negative 09/10/21 11:35 Urine Methadone Screen Presumptive negative 09/10/21 11:35 Ur Barbiturates Screen Presumptive negative 09/10/21 11:35 Ur Phencyclidine Scrn Presumptive negative 09/10/21 11:35 Ur Amphetamines Screen Presumptive negative 09/10/21 11:35 U Benzodiazepines Scrn Presumptive negative 09/10/21 11:35 Urine Cocaine Screen Presumptive negative 09/10/21 11:35 U Marijuana (THC) Screen Presumptive negative 09/10/21 11:35 Drugs of Abuse Note Disclamer 09/10/21 11:35 Plasma/Serum Alcohol < 0.01 % (0-0.07) 09/10/21 11:35 Coronavirus (PCR) Negative (Negative) 09/18/21 10:45 Hepatitis A IgM Ab Nonreactive (NonReactive) 09/09/21 20:55 Hep Bs Antigen Non-reactive (Negative) 09/09/21 20:55 Hep B Core IgM Ab Non-reactive (NonReactive) 09/09/21 20:55 Hepatitis C Antibody Non-reactive (NonReactive) 09/09/21 20:55 Blood Type O POSITIVE 09/15/21 07:50 Antibody Screen Negative 09/15/21 07:50 Direct Antiglob Test Negative 09/18/21 05:08 OMID, Poly Interpret Negative 09/18/21 05:08 Crossmatch See Detail 09/15/21 07:50 León/IV: Voiding Method Indwelling Catheter Active Medications - Current Medications Current Medications: Generic Name Dose Route Start Last Admin Trade Name Freq PRN Reason Stop Dose Admin Acetaminophen 650 mg 09/09/21 20:24 09/19/21 22:40 Acetaminophen 325 Mg Tab PO 650 mg Q4H PRN Administration Pain MILD(1-3)/Fever >100.5/LOCO Amlodipine Besylate 10 mg 09/11/21 12:00 09/23/21 10:03 Amlodipine 10 Mg Tab PO 10 mg QDAY LENY Administration Calcitriol 0.5 mcg 09/14/21 19:00 09/23/21 10:03 Calcitriol 0.5 Mcg Cap PO 0.5 mcg QDAY LENY Administration Carvedilol 6.25 mg 09/12/21 22:00 09/23/21 22:03 Carvedilol 6.25 Mg Tab PO 6.25 mg BID LENY Administration Epoetin Alex-epbx 8,000 unit 09/16/21 16:00 09/20/21 17:43 Epoetin Alex-Epbx 10,000 Unit/1 Ml Vial SUB-Q 8,000 unit MoWeFr LENY Administration Hydralazine HCl 10 mg 09/15/21 07:29 Hydralazine 20 Mg/1 Ml Inj IV Q4H PRN Hypertension Hydralazine HCl 50 mg 09/15/21 08:00 09/23/21 23:40 Hydralazine 25 Mg Tab PO 50 mg Q8H LENY Administration Sodium Chloride 1,000 mls @ 125 mls/hr 09/11/21 11:45 09/24/21 04:33 Nacl 0.9% 1000 Ml IV 75 mls/hr DIRECT LENY Administration Sodium Chloride 100 mls @ 999 mls/hr 09/19/21 17:12 Nacl 0.9% IV MARTI PRN Hypotension Labetalol HCl 10 mg 09/11/21 11:09 Labetalol 20 Mg/4 Ml Inj IV Q4HR PRN sbp>160 Metoclopramide HCl 5 mg 09/14/21 09:00 Metoclopramide 10 Mg/2 Ml Inj IV Q8H PRN Nausea And Vomiting Morphine Sulfate 2 mg 09/09/21 20:24 09/20/21 21:28 Morphine 2 Mg/1 Ml Inj IV 2 mg Q4H PRN Administration Pain, Moderate (4-6) Ondansetron HCl 4 mg 09/09/21 20:24 09/11/21 03:43 Ondansetron 4 Mg/2 Ml Inj IV 4 mg Q3H PRN Administration Nausea And Vomiting Pantoprazole Sodium 40 mg 09/11/21 16:30 09/23/21 08:25 Pantoprazole 40 Mg Tab PO 40 mg BIDAC LENY Administration Sodium Chloride 10 ml 09/09/21 22:00 09/23/21 22:03 Sodium Chloride 0.9% 10 Ml Flush Syringe IV 10 ml BID LENY Administration Sodium Chloride 10 ml 09/09/21 20:24 Sodium Chloride 0.9% 10 Ml Flush Syringe IV PRN PRN LINE FLUSH Tamsulosin HCl 0.8 mg 09/11/21 12:00 09/23/21 10:02 Tamsulosin 0.4 Mg Cap PO 0.8 mg QDAY LENY Administration Nutrition/Malnutrition Assess - Dietary Evaluation Nutrition/Malnutrition Findings: Nutrition Notes Start: 09/10/21 15:32 Freq: Status: Active Protocol: Document 09/20/21 13:41 ALEX (Rec: 09/20/21 13:48 ALEX [id number]) Nutrition Notes Initial or Follow up Reassessment Current Diagnosis Acute Kidney Injury, Hypertension,Heart Failure Other Pertinent Diagnosis Obstructive uropathy, Anemia, EtOH dependence Current Diet Renal/Cardiac + Nepro BID Labs/Tests BUN 47 Cr 7.7 Pertinent Medications Calcitriol, Epoetin, NS at 125ml/hr Height 5 ft 8 in Weight 87.5 kg [place] Body Weight (kg) 70.00 BMI 29.3 Weight change and time frame Pt says current wt is accurate Weight Status Overweight Subjective/Other Information Pt reports very good appetite; he has consumed 89% of meals since last assessment. He drinks the Nepro shakes as well. Per nephrology, no need for HD today; pt to be assessed for HD needs on a daily basis. Percent of energy/protein needs met: 100% energy and pro (includes ONS) Burn Absent Trauma Absent #1 Nutrition Diagnosis Increased nutrient needs ( specify in comment below) Diagnosis Progress(for reassessment Continues documentation) Is patient on ventilator? No Is Patient Ambulatory and/or Out of Bed Yes [facility] [ [id number] [id number]] Calculation Used for Recommendations [facility] Additional Notes Pro needs >1.2g/kg: >105g/day Fluid needs 1ml/kcal Nutrition Intervention Change Diet Order: Continue current diet order Add Supplement/Snack (indicate name/kcal Nepro BID /protein ) Provides kCal: 850 Provides Protein (gm) 38 Goal #1 PO intake of meals plus ONS to continue to meet at least 75% energy and pro needs Revisit per MD consult or patient Sign Off request:
[2021-09-24] MEDS: TAMSULOSIN 0.4 MG CAP PO SCH (10:53)
[2021-09-24] MEDS: carvediloL 6.25 MG TAB PO SCH ×2 (10:53→21:59)
[2021-09-24] MEDS: amLODIPine 10 MG TAB PO SCH (10:54)
[2021-09-24] MEDS: CALCITRIOL 0.5 MCG CAP PO SCH (11:00)
[2021-09-24] MEDS: PANTOPRAZOLE 40 MG TAB PO SCH ×3 (11:07→18:20)
[2021-09-24] MEDS: hydrALAZINE 25 MG TAB PO SCH ×3 (11:07→18:59)
[2021-09-24] MEDS: MORPHINE 2 MG/1 ML INJ IV PRN (13:22)
[2021-09-24] MEDS: ACETAMINOPHEN 325 MG TAB PO PRN (22:04)
[2021-09-25] MEDS: hydrALAZINE 25 MG TAB PO SCH ×2 (00:30→08:37)
[2021-09-25] MEDS: EPOETIN ALFA-EPBX 10,000 UNIT/1 ML VIAL SUB-Q SCH (08:27)
[2021-09-25] MEDS: PANTOPRAZOLE 40 MG TAB PO SCH (08:37)
[2021-09-25] MEDS: SODIUM CHLORIDE 0.9% 1000 ML 1,000 ML IV SCH (08:38)
[2021-09-25] MEDS: TAMSULOSIN 0.4 MG CAP PO SCH (10:15)
[2021-09-25] MEDS: amLODIPine 10 MG TAB PO SCH (10:15)
[2021-09-25] MEDS: carvediloL 6.25 MG TAB PO SCH (10:16)
[2021-09-25] MEDS: CALCITRIOL 0.5 MCG CAP PO SCH (10:16)
[2021-09-25 10:18] VITALS: BP 145/83
--- NOTE | 2021-09-25 11:34 | Progress Note ---
Assessment and Plan Assessment Severe renal failure secondary to obstructive uropathy Hyperkalemia Metabolic acidosis, now Alkalotic Uremia Acute Anemia Hypocalcemia/Hyperparathyroidsm Plan: Renal labs reviewed. Recent serum creatinine is 7.2 today, and prior was 9.7, non-oliguric, UOP 2780 ml S/P vasc cath removal and perm-catheter placement on 09/24/21 No urgent indication for HD today CT AP showed BL hydronephrosis and bladder scan was positive for urinary retention. Urology consulted and placed león and recommended Flomax and to call them for león catheter removal On Flomax 0.8 mg po daily On IV hydration with NS Hematology evaluating for [id number] pending Hypocalcemia and Hyperparathyroidsm- on Calctriol Renally dose medications Avoid nephrotoxic agents Strict I&O's daily Obtain daily weights Assess dialysis needs daily Monitor for renal recovery Case management onboard to assist with outpatient HD placement as best as possible, if can't find placement then can D/C to return to E.R every 2 days to be evaluated for HD Plan of care reviewed by Dr. Gregory Subjective Date of service: 09/25/21 Principal diagnosis: anemia, acute kidney failure Interval history: Patient seen lying in bed. Advised patient to come to E.R every 2 days to be evaluated for dialysis. No family at bedside. Objective - Vital Signs Vital signs: Vital Signs - 12hr 09/25/21 09/25/21 09/25/21 00:30 04:56 10:15 Temperature 98.0 F Pulse Rate 87 83 87 Respiratory 16 Rate Blood Pressure 157/84 137/78 145/83 O2 Sat by Pulse 95 Oximetry - General Appearance General appearance: well-developed, appears stated age EENT: ATNC, PERRL, hearing intact, vision intact Neck: no JVD, supple Respiratory: Present: Decreased Breath Sounds Cardiology: S1S2 Gastrointestinal: normoactive bowel sounds Integumentary: warm and dry Neurologic: alert and oriented x3 Musculoskeletal: other (No edema) - Lab 09/24/21 05:09 09/24/21 05:09 Most recent lab results ABG pH 7.100 pH Units (7.350-7.450) L* 09/09/21 21:00 ABG pCO2 20.0 mm Hg 09/09/21 21:00 ABG pO2 60.9 mm Hg (80.0-90.0) L 09/09/21 21:00 ABG HCO3 6.1 mmol/L (20.0-26.0) L 09/09/21 21:00 ABG O2 Saturation 81.1 % (95.0-99.0) L 09/09/21 21:00 Calcium 8.4 mg/dL (8.4-10.2) 09/24/21 05:09 Phosphorus 2.70 mg/dL (2.5-4.5) 09/16/21 05:23 Magnesium 2.00 mg/dL (1.7-2.3) 09/23/21 12:05 Urine Creatinine 18.3 mg/dL (0.1-20.0) 09/17/21 10:13 Urine Total Protein 201 mg/dL (5-11.8) H 09/10/21 11:35 Medications & Allergies - Medications Allergies/Adverse Reactions: Allergies No Known Allergies Allergy (Unverified 01/17/17 01:04) Home Medications: Home Medications Medication Instructions Recorded Confirmed Last Taken Type Pantoprazole [Protonix TAB] 40 mg PO BIDAC 30 Days #60 tablet 09/25/21 Unknown Rx Tamsulosin [Flomax] 0.8 mg PO QDAY 30 Days #30 capsule 09/25/21 Unknown Rx amLODIPine 10 mg PO QDAY 30 Days #30 tablet 09/25/21 Unknown Rx calcitrioL [Rocaltrol] 0.5 mcg PO QDAY 30 Days #30 capsule 09/25/21 Unknown Rx carvediloL [Coreg] 6.25 mg PO BID 30 Days #60 tablet 09/25/21 Unknown Rx hydrALAZINE [Apresoline TAB] 50 mg PO Q8H 30 Days #90 tablet 09/25/21 Unknown R x Active Medications: Generic Name Dose Route Start Last Admin Trade Name Freq PRN Reason Stop Dose Admin Acetaminophen 650 mg 09/09/21 20:24 09/24/21 22:04 Acetaminophen 325 Mg Tab PO 650 mg Q4H PRN Administration Pain MILD(1-3)/Fever >100.5/LOCO Amlodipine Besylate 10 mg 09/11/21 12:00 09/25/21 10:15 Amlodipine 10 Mg Tab PO 10 mg QDAY LENY Administration Calcitriol 0.5 mcg 09/14/21 19:00 09/25/21 10:16 Calcitriol 0.5 Mcg Cap PO 0.5 mcg QDAY LENY Administration Carvedilol 6.25 mg 09/12/21 22:00 09/25/21 10:16 Carvedilol 6.25 Mg Tab PO 6.25 mg BID LENY Administration Epoetin Alex-epbx 8,000 unit 09/16/21 16:00 09/25/21 08:27 Epoetin Alex-Epbx 10,000 Unit/1 Ml Vial SUB-Q Not Given MoWeFr LENY Hydralazine HCl 10 mg 09/15/21 07:29 Hydralazine 20 Mg/1 Ml Inj IV Q4H PRN Hypertension Hydralazine HCl 50 mg 09/15/21 08:00 09/25/21 08:37 Hydralazine 25 Mg Tab PO 50 mg Q8H LENY Administration Sodium Chloride 1,000 mls @ 125 mls/hr 09/11/21 11:45 09/25/21 08:38 Nacl 0.9% 1000 Ml IV 75 mls/hr DIRECT LENY Administration Sodium Chloride 100 mls @ 999 mls/hr 09/19/21 17:12 Nacl 0.9% IV MARTI PRN Hypotension Labetalol HCl 10 mg 09/11/21 11:09 Labetalol 20 Mg/4 Ml Inj IV Q4HR PRN sbp>160 Metoclopramide HCl 5 mg 09/14/21 09:00 Metoclopramide 10 Mg/2 Ml Inj IV Q8H PRN Nausea And Vomiting Morphine Sulfate 2 mg 09/09/21 20:24 09/24/21 13:22 Morphine 2 Mg/1 Ml Inj IV 2 mg Q4H PRN Administration Pain, Moderate (4-6) Ondansetron HCl 4 mg 09/09/21 20:24 09/11/21 03:43 Ondansetron 4 Mg/2 Ml Inj IV 4 mg Q3H PRN Administration Nausea And Vomiting Pantoprazole Sodium 40 mg 09/11/21 16:30 09/25/21 08:37 Pantoprazole 40 Mg Tab PO 40 mg BIDAC LENY Administration Sodium Chloride 10 ml 09/09/21 22:00 09/25/21 10:18 Sodium Chloride 0.9% 10 Ml Flush Syringe IV 10 ml BID LENY Administration Sodium Chloride 10 ml 09/09/21 20:24 Sodium Chloride 0.9% 10 Ml Flush Syringe IV PRN PRN LINE FLUSH Tamsulosin HCl 0.8 mg 09/11/21 12:00 09/25/21 10:15 Tamsulosin 0.4 Mg Cap PO 0.8 mg QDAY LENY Administration
--- NOTE | 2021-09-25 13:07 | Discharge Summary ---
Providers - Providers Date of Admission: 09/09/21 20:24 Date of discharge: 09/25/21 Attending physician: AMANDA MARTIN MD 09/09/21 20:46 Consult to Physician [CONS] Stat Comment: Consulting Provider: LILY HANSEN Physician Instructions: Reason For Exam: melena 09/09/21 20:47 Consult to Physician [CONS] Stat Comment: Consulting Provider: QUINTEN DELCID Physician Instructions: Reason For Exam: dialysis 09/09/21 21:45 Consult to Physician [CONS] Routine Comment: Consulting Provider: SYLVESTER MCNAMARA Physician Instructions: Reason For Exam: Elevated troponin 09/10/21 01:17 Consult to Physician [CONS] Routine Comment: left mess./ lilia Consulting Provider: MILAD CASTELLANOS Physician Instructions: Reason For Exam: Urinary retention 09/11/21 19:10 Physical Therapy Evaluation and Treat [CONS] Routine Comment: Reason For Exam: generalized weakness 09/15/21 11:47 Consult to Physician [CONS] Routine Comment: Consulting Provider: MOE MENDENHALL Physician Instructions: Reason For Exam: anemia 09/16/21 12:55 Consult to Case Management [CONS] Routine Services Needed at Discharge: Other Notified:: yes Comment:: Arrange for outpatient HD arrangement to nearest clinic to home 09/23/21 11:38 Consult to Interventional Radiology [CONS] Routine Consulting Provider: TRACY BOSWELL Reason For Exam: perm-catheter placement Place consult to:: DR. MORRIS Notified:: DR. MORRIS Primary care physician: SEAN TOLENTINO Hospitalization Reason for admission: emesis, epistaxis Condition: Critical Hospital course: HPI per admitting doctor: 61 years old male with past medical history of chronic kidney disease was brought to the hospital because of progressive shortness of breath as stated with vomiting and bleeding from nose for 1 day. Patient is a very poor historian. In the emergency room patient is found to have hemoglobin of 4.8 and hematocrit 14.9 also patient is found to have potassium of 7.1, bicarb 4, anion gap 54, BUN to 38 and creatinine 48.4, lactic acid 2.80. ABG shows pH 7.100, PCO2 20+0, PO2 60.9, bicarb 6.1. The patient was admitted to critical care and underwent emergent hemodialysis. Hospital Course: 09/10: Improved on bedside encounter. Urology placed león catheter. Plan for nephrology to complete HD today. Hgb improved to 8.3, suspect anemia is purely from epistaxis, unclear if there was truly was a GI source. Will continue to monitor for other source of bleed. GI consulted, will follow recommendations. 09/11: hemoglobin stable. patient on encounter states he had recurrent epistaxis bleed leading up to hospitalization. Hgb stable this AM. Renal indices improved on bmp. Urine output 1000 cc yesterday. Troponin downtrending. D/w Dr. Juan A Martin, will d/c protonix IV, start on protonix 40 mg po bid. Transfer to floor bed. 09/12: Doing well on encounter today. on room air saturating 98%. Renal indices improving. León output approx: 2500 cc yday. [place] tingued urine noted, clearing up. hemoglobin 8.1, VSS. No plan for HD today per nephrology. We will continue to follow along for hemodialysis plan moving forward and nephrology final impression on renal prognosis. Anticipate d/c in next 24-48 hrs depending on this. Patient will likely need to be discharged with León catheter and instructions to follow-up with urology as an outpatient. 09/13: Patient remains clinically stable. Renal function appears to slightly worsened today. Nephrology noted the slight worsening. Will reevaluate in a.m. Patient undergoing 24-hour urine collection. From respiratory standpoint patient is stable acute respiratory failure secondary to fluid overload has resolved. Plan discussed with the patient in detail he verbalized understanding. 15 minutes counseling provided to the patient about continued cessation of EtOH use on lifestyle preventive care measures. We will monitor potassium level and slight of renal failure. 09/14: Patient seen and examined this morning hypokalemia persist also hypocalcemia we will replace both potassium and calcium. Patient advised by senior [employer] network engineer that he will be having dialysis today as creatinine is gradually creeping back up to 11.2 today. Lenó remains in place with good urine output. Patient understands he will have to go home with a León and follow-up with urologist. Based on discussion with nephrology will determine if her permacath needs to be placed prior to discharge. I have also updated the and answe red all questions. At this time awaiting renal recovery if possible. We will continue to monitor H&H 09/15: Patient seen and examined, no new complaints, review of labs shows improvement of renal function following HD yesterday, however HGB still decreasing. Will order a unit of PRBC and Hematology consultation. Further management and discharge plan depends on renal recovery and Nephrology input. Patient updated. 09/16: Patient seen and examined this morning. some response to blood transfusion noted. Reached out to nephrology to see if we should start planning for outpatient dialysis for this patient with the upward trend of creatinine following 2 days after dialysis. Appears the patient will get hemodialyzed again today. Overall concern for this patient is that he is got multiple issues pointing towards a poor renal resolution without dialysis outpatient. Will await nephrology input. He has had 4 units of packed red blood cell. Hemoglobin is at 7.7 09/17: Nephrology to hold hemodialysis today and monitor for renal recovery off hemodialysis. IV fluid increased. Follow-up 24-hour urine collection. Patient was initiated on hemodialysis on 09/10/21 due to severe renal failure coupled with severe Hyperkalemia and Acidosis. CT AP showed BL hydronephrosis and bladder scan was positive for urinary retention. Urology consulted and placed león and recommended Flomax and to call them for león catheter removal. Continue on Flomax 0.8 mg daily. Monitor post obstructive diuresis closely. Renally dose medications. Avoid nephrotoxic agents. Strict I&O's daily. Obtain daily weights. Assess dialysis needs daily. Follow-up labs LDH, retic, hemoglobin electrophoresis, spep. Hematology started Ferrlecit. Transfuse for hemoglobin less than 7 09/18: Hematology suspects hemolytic uremic syndrome. Follow-up labs for Carole, [id number] test , If [id number] >10% then confidently say HUS. Also follow- up hemoglobin electrophoresis and SPEP. Continue Retacrit 3 times a week and Ferrlecit. Patient will need outpatient [facility] hematology referral. Nephrology held HD on 09/17 to monitor for renal recovery without hemodialysis. Awaiting final decision on HD needs on an outpatient basis. Discharge planners will contact Gaye to discuss james care, as patient is self-pay, at this time. \ 09/19: Patient seen in hemodialysis. Continue to follow-up serologies. HemOnc is evaluating pt for possible HUS. If HUS, pt may require plasmapheresis. Will follow up HemOnc work up. Follow-up hemoglobin electrophoresis and SPEP. Patient will need outpatient [facility] hematology referral. 09/20: Follow-up labs for Carole, [id number] test , If [id number] >10% then confidently say HUS. Also follow-up hemoglobin electrophoresis and SPEP. Continue Retacrit 3 times a week and Ferrlecit. Patient will need outpatient [facility] hematology referral. Patient had hemodialysis yesterday for clearance only. Patient has had good UOP. Continue to monitor for signs of renal recovery. 09/21: Nephrology reports BUN and creatinine continue to rise off hemodialysis however good urinary output. No indication for hemodialysis today. Continue to monitor for signs of renal recovery. Work-up for possible HUS per hematology. Continue Flomax, Calcitrol, Retacrit and Ferrlecit. Strict I&O's daily 09/22: Nephrology reports patient will likely have hemodialysis tomorrow. Continue to follow work-up by hematology for possible HUS. If no signs of renal recovery, pt will require perm catheter placement, likely Thursday, currently patient is without insurance and unlikely will be able to assign outpatient HD clinic. CT AP showed BL hydronephrosis and bladder scan was positive for urinary retention. Urology consulted and placed león and recommended Flomax and to call them for león catheter removal. Continue Flomax and calcitriol. Renally dose medications. Strict I&O's daily 09/23: Await BMP results today. Nephrology reports If no signs of renal re covery, pt will require perm catheter placement, likely today. Await nephrology recommendations. Unfortunately patient is without insurance and unlikely to be able to have assigned outpatient hemodialysis clinic. Case management is working closely to possibly arrange outpatient clinic. CT AP showed BL hydronephrosis and bladder scan was positive for urinary retention. Urology consulted and placed león and recommended Flomax and to call them for león catheter removal. Continue Flomax and calcitriol. Renally dose medications. Strict I&O's daily. Work-up for possible HUS per hematology. 09/24: S/p permacath placement. Working with CM re: dialysis chair. If this is not an option, patient will need to attempt to set up as OP or worst case may need to present to ED for HD sessions. 09/25: Patient will be discharged today. Brief summary as follows. She was admitted to our facility with complaint of nausea vomiting and severe epistaxis. He was found to be severely anemic and acidotic on arrival. His renal function was severely compromised and he did not have any urine output originally. He was administered aggressive transfusion with packed red blood cells and subsequent improvement of his hemoglobin. He was evaluated by urology who placed León catheter. He was evaluated by nephrology recommended dialysis to help support her renal function and correct metabolic acidosis. Kidney dysfunction believed to be due to severe anemia causing hypotension as well as postobstructive uropathy. Epistaxis appeared to be propagated by uremia from renal dysfunction. Epistaxis has since resolved. Patient was also evaluated by hematology who was completing work-up for HUS. No determination was made for official diagnosis of HUS. All hematologic markers improved. However, patient will need outpatient hematology follow-up at tertiary facility such as [facility]. Permacath was placed on 517 as patient's renal prognosis appears to be guarded and he is not had significant improvement in renal function. Attempts were made to place patient at outpatient dialysis chair however due to lack of funding status patient was unable to obtain 1. Our social media strategist gave patient resources for outpatient dialysis centers and patient was advised that in an emergent situation patient would likely need to present to the emergency department for dialysis should he need it. He was advised to follow-up outpatient with urology, Dr. Martinez as well as nephrology Dr. Rhodes. He was also advised to establish with a primary care physician. Information for Dr. Tolentino was given to patient. He will be discharged with prescriptions for amlodipine 10 mg p.o. daily, hydralazine 50 mg p.o. every 8 hour, carvedilol 6.25 mg p.o. twice daily, Flomax 0.8 mg p.o. daily, Protonix 40 mg p.o. twice daily, calcitriol 0.5 mcg p.o. daily. He will also be discharged with León catheter as urinary obstruction will need to be addressed as an outpatient with urology. Disposition: HOME / SELF CARE / HOMELESS Final Discharge Diagnosis (Prints w/discharge instructions): acute kidney injury due to post obstructive uropathy, uremia, urinary retention, epistaxis Time spent for discharge: 35 Core Measure Documentation - Palliative Care Palliative Care/ Comfort Measures: Not Applicable - Core Measures Any of the following diagnoses?: none Exam - Physical Exam Narrative exam: General appearance: Present: no acute distress, well-nourished, resting comfortably. alert, comfortable, nad. - EENT Eyes: Present: PERRL ENT: hearing intact, clear oral mucosa - Neck Neck: Present: supple, normal ROM, s/p RT permacath placement - Respiratory Respiratory effort: normal Respiratory: bilateral: improvement in bl aeration. - Cardiovascular Heart Sounds: Present: S1 & S2. Absent: rub, click - Extremities Extremities: pulses symmetrical, No edema Peripheral Pulses: within normal limits - Abdominal General gastrointestinal: Present: soft, non-tender, non-distended, normal bowel sounds Male genitourinary: Present: normal, león in place - Integumentary Integumentary: Present: clear, warm, dry - Musculoskeletal Musculoskeletal: gait normal, strength equal bilaterally - Psychiatric Psychiatric: appropriate mood/affect, intact judgment & insight - Neurologic Neurologic: CNII-XII intact, moves all extremities - Constitutional Vitals: Temp Pulse Resp BP Pulse Ox 98.0 F 87 16 145/83 95 09/25/21 04:56 09/25/21 10:15 09/25/21 04:56 09/25/21 10:15 09/25/21 08:00 Plan Plan of Treatment: Patient will be discharged today. Brief summary as follows. She was admitted to our facility with complaint of nausea vomiting and severe epistaxis. He was found to be severely anemic and acidotic on arrival. His renal function was severely compromised and he did not have any urine output originally. He was administered aggressive transfusion with packed red blood cells and subsequent improvement of his hemoglobin. He was evaluated by urology who placed León catheter to help relieve postobstructive uropathy. He was evaluated by nephrology recommended dialysis to help support her renal function and correct metabolic acidosis. Kidney dysfunction believed to be due to severe anemia causing hypotension as well as postobstructive uropathy. Epistaxis appeared to be propagated by uremia from renal dysfunction. Epistaxis has since resolved. Patient was also evaluated by hematology who was completing work-up for HUS. No determination was made for official diagnosis of HUS. All hematologic markers improved. However, patient will need outpatient hematology follow-up at tertiary facility such as [facility]. Permacath was placed on 517 as patient's renal prognosis appears to be guarded and he is not had significant improvement in renal function. Attempts were made to place patient at outpatient dialysis chair however due to lack of funding status patient was unable to obtain one. Our social media strategist gave patient resources for outpatient dialysis centers and patient was advised that in an emergent situation patient would likely need to present to the emergency department for dialysis should he need it. He was advised to follow-up outpatient with urology, Dr. Martinez as well as nephrology Dr. Rhodes. He was also advised to establish with a primary care physician. Information for Dr. Tolentino was given to patient. He will be discharged with prescriptions for amlodipine 10 mg p.o. daily, hydralazine 50 mg p.o. every 8 hour, carvedilol 6.25 mg p.o. twice daily, Flomax 0.8 mg p.o. daily, Protonix 40 mg p.o. twice daily, calcitriol 0.5 mcg p.o. daily. He will also be discharged with León catheter as urinary obstruction will need to be addressed as an outpatient with urology. Follow up with: SEAN TOLENTINO MD [Primary Care Provider] - 3-5 Days CHINO RHODES MD [Staff Physician] - 7 Days NAVEEN MARTINEZ MD [Staff Physician] - 7 Days Prescriptions: amLODIPine 10 mg PO QDAY 30 Days #30 tablet hydrALAZINE [Apresoline TAB] 50 mg PO Q8H 30 Days #90 tablet carvediloL [Coreg] 6.25 mg PO BID 30 Days #60 tablet Tamsulosin [Flomax] 0.8 mg PO QDAY 30 Days #30 capsule Pantoprazole [Protonix TAB] 40 mg PO BIDAC 30 Days #60 tablet calcitrioL [Rocaltrol] 0.5 mcg PO QDAY 30 Days #30 capsule
== END 2021-09-25 16:29 | disposition home or self-care (01) | DRG 673 ==
LOC: ED 11:07 → IMCU 20:24 → 3A 09-11 18:58
PROVIDERS: ADMIT Hospitalist; ATTEND Internal Medicine
PROC: 05HM33Z Insertion of Infusion Device into Right Internal Jugular Vein, Percutaneous Approach (ICD-10-PCS; 2021-09-09)
PROC: B543ZZA Ultrasonography of Right Jugular Veins, Guidance (ICD-10-PCS; 2021-09-09)
PROC: 4A033R1 Measurement of Arterial Saturation, Peripheral, Percutaneous Approach (ICD-10-PCS; 2021-09-09)
PROC: 30233N1 Transfusion of Nonautologous Red Blood Cells into Peripheral Vein, Percutaneous Approach (ICD-10-PCS; 2021-09-10)
PROC: 5A1D70Z Performance of Urinary Filtration, Intermittent, Less than 6 Hours Per Day (ICD-10-PCS; 2021-09-10)
PROC: 5A1D70Z Performance of Urinary Filtration, Intermittent, Less than 6 Hours Per Day (ICD-10-PCS; 2021-09-11)
PROC: 5A1D70Z Performance of Urinary Filtration, Intermittent, Less than 6 Hours Per Day (ICD-10-PCS; 2021-09-14)
PROC: 5A1D70Z Performance of Urinary Filtration, Intermittent, Less than 6 Hours Per Day (ICD-10-PCS; 2021-09-16)
PROC: 5A1D70Z Performance of Urinary Filtration, Intermittent, Less than 6 Hours Per Day (ICD-10-PCS; 2021-09-19)
PROC: 5A1D70Z Performance of Urinary Filtration, Intermittent, Less than 6 Hours Per Day (ICD-10-PCS; 2021-09-23)
PROC: 0JH63XZ Insertion of Tunneled Vascular Access Device into Chest Subcutaneous Tissue and Fascia, Percutaneous Approach (ICD-10-PCS; principal; 2021-09-24)
PROC: 02H633Z Insertion of Infusion Device into Right Atrium, Percutaneous Approach (ICD-10-PCS; 2021-09-24)
PROC: B548ZZA Ultrasonography of Superior Vena Cava, Guidance (ICD-10-PCS; 2021-09-24)
PROC: B5181ZA Fluoroscopy of Superior Vena Cava using Low Osmolar Contrast, Guidance (ICD-10-PCS; 2021-09-24)
DX: N17.9 Acute kidney failure, unspecified (principal); J96.01 Acute respiratory failure with hypoxia; I21.A1 Myocardial infarction type 2; G93.41 Metabolic encephalopathy; I50.21 Acute systolic (congestive) heart failure; E87.2 Acidosis; D62 Acute posthemorrhagic anemia; I13.0 Hypertensive heart and chronic kidney disease with heart failure and stage 1 through stage 4 chronic kidney disease, or unspecified chronic kidney disease; Z20.822 Contact with and (suspected) exposure to COVID-19; E87.5 Hyperkalemia; R04.0 Epistaxis; N13.9 Obstructive and reflux uropathy, unspecified; N18.9 Chronic kidney disease, unspecified; E87.6 Hypokalemia; E83.51 Hypocalcemia; E21.3 Hyperparathyroidism, unspecified; Z82.49 Family history of ischemic heart disease and other diseases of the circulatory system
CPT/HCPCS: 36415; 36558; 71045; 71046; 74176; 77001; 80048; 80053; 80061; 80074; 80307; 80320; 81001; 82140; 82306; 82550; 82553; 82565; 82570; 82575; 82803; 82962; 83615; 83690; 83735; 83880; 83970; 84100; 84153; 84156; 84165; 84484; 85007; 85025; 85045; 85379; 85610; 86140; 86850; 86880; 86900; 86901; 86920; 93005; 93306; 94644; 96374; 96375; 99291; 99292; G0378; J3490; Q9967; C1750; C8929; C9113; G0480; J0610; J0690; J0696; J0885; J1644; J1815; J2250; J2270; J2405; J2916; J2997; J3010; J7030; J7040; J7050; J7070; P9016; U0003

== ENCOUNTER 2021-09-28 11:31 | Observation (INO) | payer SELFPAY ==
[2021-09-28 13:17] LABS: Bacteria,Urine 1+ /HPF (Negative); Bilirubin,Urine NEG (Negative); Blood,Urine SM (Negative); Color,Urine Straw (Yellow); Mucus,Urine FEW /HPF; Urobilinogen,Urine < 2.0 mg/dL (<2.0)
[2021-09-28 14:21] LABS: Albumin 3.9 g/dL (3.9-5); Blood Urea Nitrogen 90 mg/dL (9-20); Calcium 9.3 mg/dL (8.4-10.2); Hemolysis Index 3
[2021-09-28 14:22] LABS: Alanine Aminotransferase < 5 units/L (7-56); BUN/Creatinine Ratio 8
[2021-09-28 14:44] LABS: Basophils # (Auto) 0.1 K/mm3 (0.0-0.1); Eosinophils # (Auto) 0.2 K/mm3 (0.0-0.4); Eosinophils % (Auto) 3.1 % (0.0-4.3); Hematocrit 31.8 % (35.5-45.6); Hemoglobin 9.9 gm/dl (11.8-15.2); Lymphocytes # (Auto) 1.2 K/mm3 (1.2-5.4); Lymphocytes % (Auto) 17.4 % (13.4-35.0); Mean Corpuscular HGB Conc 31 % (32-34); Mean Corpuscular Volume 90 fl (84-94); Monocytes # (Auto) 0.7 K/mm3 (0.0-0.8); Monocytes % (Auto) 10.4 % (0.0-7.3); Platelet Count 550 K/mm3 (140-440); Red Blood Count 3.55 M/mm3 (3.65-5.03); Red Cell Distribution Width 18.6 % (13.2-15.2)
[2021-09-28] MEDS ORDERED: INSULIN REGULAR, HUMAN 100 UNITS/1 ML IV ONE (15:45)
[2021-09-28] MEDS ORDERED: CALCIUM GLUCONATE 1,000 MG in SODIUM CHLORIDE 0.9% 100 ML IV ONE (15:45)
[2021-09-28] MEDS ORDERED: ALBUTEROL 2.5 MG/3 ML NEBU IH ONE (15:45)
[2021-09-28] MEDS ORDERED: SODIUM BICARB 8.4% 50 MEQ/50 ML SYRINGE IV ONE (15:45)
[2021-09-28] MEDS ORDERED: DEXTROSE 50% IN WATER (25GM) 50 ML SYRINGE IV ONE (15:45)
[2021-09-28] MEDS ORDERED: FUROSEMIDE 40 MG/4 ML INJ IV ONE (15:57)
[2021-09-28] MEDS ORDERED: SODIUM POLYSTYRENE 15 GM/60 ML ORAL LIQD PO ONE (15:57)
[2021-09-28] MEDS ORDERED: CALC GLUCONATE 1GM/NS 100 ML 1 GM/100 ML BAG IV ONE (16:00)
--- NOTE | 2021-09-28 16:02 | Emergency Department Report ---
ED General Adult HPI - General Chief complaint: Medical Clearance Stated complaint: F/U DIALYSIS Time Seen by Provider: 09/28/21 15:41 Source: patient, old records reviewed Mode of arrival: Ambulatory Limitations: No Limitations - History of Present Illness Initial comments: 61-year-old male with obstructive uropathy and end-stage renal disease recently started on dialysis presents to the hospital with complaints of needing dialysis. Patient was just discharged here on the and instructed to come to the ER to continue his dialysis since they were coordinate follow-up with an outpatient dialysis unit prior to discharge. Patient denies shortness of breath. He continues to have urine output via Montano catheter. No pain reported Pt was recently admitted to the hospital 09/09 until 09/25. Discharge summary below He was admitted to our facility with complaint of nausea vomiting and severe epistaxis. He was found to be severely anemic and acidotic on arrival. His renal function was severely compromised and he did not have any urine output originally. He was administered aggressive transfusion with packed red blood cells and subsequent improvement of his hemoglobin. He was evaluated by urology who placed Montano catheter. He was evaluated by nephrology recommended dialysis to help support his renal function and correct metabolic acidosis. Kidney dysfunction believed to be due to severe anemia causing hypotension as well as postobstructive uropathy. Epistaxis appeared to be propagated by uremia from renal dysfunction. Epistaxis has since resolved. Patient was also evaluated by hematology who was completing work-up for HUS. No determination was made for official diagnosis of HUS. Patient was unable to establish the dialysis unit prior to discharge and was instructed to come to the ER to receive dialysis. He is supposed to follow-up with Dr. Rhodes, Dr. Jaramillo, a primary care doctor, and hematology at [place]. Patient has made appointments with both Dr. Jose Jaramillo scheduled for mid October - Related Data Previous Rx's Medication Instructions Recorded Last Taken Type Pantoprazole [Protonix TAB] 40 mg PO BIDAC 30 Days #60 tablet 09/25/21 Unknown Rx Tamsulosin [Flomax] 0.8 mg PO QDAY 30 Days #30 capsule 09/25/21 Unknown Rx amLODIPine 10 mg PO QDAY 30 Days #30 tablet 09/25/21 Unknown Rx calcitrioL [Rocaltrol] 0.5 mcg PO QDAY 30 Days #30 capsule 09/25/21 Unknown Rx carvediloL [Coreg] 6.25 mg PO BID 30 Days #60 tablet 09/25/21 Unknown Rx hydrALAZINE [Apresoline TAB] 50 mg PO Q8H 30 Days #90 tablet 09/25/21 Unknown Rx Allergies Allergy/AdvReac Type Severity Reaction Status Date / Time No Known Allergies Allergy Unverified 01/17/17 01:04 ED Review of Systems ROS: Stated complaint: F/U DIALYSIS Other details as noted in HPI Comment: All other systems reviewed and negative ED Past Medical Hx - Past Medical History Previous Medical History?: Yes Hx Congestive Heart Failure: No Hx Diabetes: No Hx Asthma: No Hx COPD: No Hx HIV: No Additional medical history: Permcath - Surgical History Past Surgical History?: No - Social History Smoking Status: Never Smoker Substance Use Type: Alcohol - Medications Home Medications: Home Medications Medication Instructions Recorded Confirmed Last Taken Type Pantoprazole [Protonix TAB] 40 mg PO BIDAC 30 Days #60 tablet 09/25/21 Unknown Rx Tamsulosin [Flomax] 0.8 mg PO QDAY 30 Days #30 capsule 09/25/21 Unknown Rx amLODIPine 10 mg PO QDAY 30 Days #30 tablet 09/25/21 Unknown Rx calcitrioL [Rocaltrol] 0.5 mcg PO QDAY 30 Days #30 capsule 09/25/21 Unknown Rx carvediloL [Coreg] 6.25 mg PO BID 30 Days #60 tablet 09/25/21 Unknown Rx hydrALAZINE [Apresoline TAB] 50 mg PO Q8H 30 Days #90 tablet 09/25/21 Unknown Rx ED Physical Exam - General Limitations: No Limitations - Other Other exam information: General: No acute distress Head: Atraumatic Eyes: normal appearance ENT: Moist mucous membranes Neck: Normal appearance, no midline tenderness Chest: Clear to auscultation bilaterally CV: Regular rate and rhythm Abdomen: Soft, normal bowel sounds, nontender, nondistended, no rebound or guarding Back: Normal inspection Extremity: Normal inspection, full range of motion Neuro: Alert O x 3, no facial asymmetry, speech clear, no gross motor sensory deficit Psych: Appropriate behavior Skin: No rash ED Course Vital Signs 09/28/21 12:17 Temperature 97.8 F Pulse Rate 73 Respiratory 18 Rate Blood Pressure 151/86 O2 Sat by Pulse 98 Oximetry - Consultations Consultation #1: 09/28/21 16:06 Dr Ryeez data virtualization consultant DR rhodes, request for pt to go to unassigned lead generation representative 09/28/21 16:18 case d/w With Dr vera sanders data virtualization consultant, will place orders for stat dialysis ED Medical Decision Making - Lab Data Result diagrams: 09/28/21 13:02 09/28/21 13:02 Lab Results 09/28/21 09/28/21 09/28/21 Range/Units 12:22 13:02 13:02 WBC 6.6 (4.5-11.0) K/mm3 RBC 3.55 L (3.65-5.03) M/mm3 Hgb 9.9 L (11.8-15.2) gm/dl Hct 31.8 L (35.5-45.6) % MCV 90 (84-94) fl MCH 28 (28-32) pg MCHC 31 L (32-34) % RDW 18.6 H (13.2-15.2) % Plt Count 550 H (140-440) K/mm3 Lymph % (Auto) 17.4 (13.4-35.0) % Christian % (Auto) 10.4 H (0.0-7.3) % Eos % (Auto) 3.1 (0.0-4.3) % Baso % (Auto) 2.0 H (0.0-1.8) % Lymph # (Auto) 1.2 (1.2-5.4) K/mm3 Christian # (Auto) 0.7 (0.0-0.8) K/mm3 Eos # (Auto) 0.2 (0.0-0.4) K/mm3 Baso # (Auto) 0.1 (0.0-0.1) K/mm3 Seg Neutrophils % 67.1 (40.0-70.0) % Seg Neutrophils # 4.4 (1.8-7.7) K/mm3 Sodium 140 (137-145) mmol/L Potassium 6.5 H* D (3.6-5.0) mmol/L Chloride 107.6 H (98-107) mmol/L Carbon Dioxide 15 L D (22-30) mmol/L Anion Gap 24 mmol/L BUN 90 H (9-20) mg/dL Creatinine 11.6 H D (0.8-1.3) mg/dL Estimated GFR 5 ml/min BUN/Creatinine Ratio 8 % Glucose 86 (75-100) mg/dL Calcium 9.3 (8.4-10.2) mg/dL Total Bilirubin 0.20 (0.1-1.2) mg/dL AST 15 (5-40) units/L ALT < 5 L (7-56) units/L Alkaline Phosphatase 74 (35-129) units/L Total Protein 8.2 (6.3-8.2) g/dL Albumin 3.9 (3.9-5) g/dL Albumin/Globulin Ratio 0.9 % Urine Color Straw (Yellow) Urine Turbidity Clear (Clear) Urine pH 6.0 (5.0-7.0) Ur Specific [place] 1.009 (1.003-1.030) Urine Protein 100 mg/dl (Negative) mg/dL Urine Glucose (UA) 50 (Negative) mg/dL Urine Ketones Neg (Negative) mg/dL Urine Blood Sm (Negative) Urine Nitrite Neg (Negative) Urine Bilirubin Neg (Negative) Urine Urobilinogen < 2.0 (<2.0) mg/dL Ur Leukocyte Esterase Mod (Negative) Urine WBC (Auto) 11.0 H (0.0-6.0) /HPF Urine RBC (Auto) 7.0 (0.0-6.0) /HPF Urine Bacteria (Auto) 1+ (Negative) /HPF Urine Mucus Few /HPF - EKG Data -: EKG Interpreted by [place] EKG shows normal: sinus rhythm (70) Rate: normal - Medical Decision Making 61-year-old male presents to the hospital requesting dialysis. Fairly asymptomatic. He was recently started on dialysis during his recent admission and was discharged on the . He does not have an outpatient dialysis center so was instructed to come to the ER. He has significant hyperkalemia, uremia, anion gap acidosis meets criteria for emergent dialysis. Case discussed with lead generation representative on-call who will arrange for stat dialysis today. Patient medicated with hyperkalemic medication including insulin, glucose, calcium, sodium bicarb, Lasix, Kayexalate and albuterol. Hospitalist to admit. Telemetry orders placed due to hyper-K Critical Care Time: No Critical care attestation.: If time is entered above; I have spent that time in minutes in the direct care of this critically ill patient, excluding procedure time. ED Disposition Clinical Impression: Acute hyperkalemia, ESRD needing dialysis Disposition: 09 ADMITTED INPATIENT Is pt being admited?: Yes Condition: Stable Instructions: Eating Plan for Dialysis Time of Disposition: 16:39 (DR Atkins/hospitalist)
[2021-09-28] MEDS ORDERED: SODIUM CHLORIDE 0.9% 100 ML IV PRN (16:24)
[2021-09-28] MEDS ORDERED: ONDANSETRON 4 MG/2 ML INJ IV PRN (16:39)
[2021-09-28] MEDS ORDERED: ACETAMINOPHEN 325 MG TAB PO PRN (16:39)
[2021-09-28] MEDS ORDERED: MORPHINE 2 MG/1 ML INJ IV PRN (16:40)
[2021-09-28 20:50] VITALS: BP 146/84
--- NOTE | 2021-09-28 21:38 | History and Physical Report ---
History of Present Illness Date of examination: 09/28/21 Date of admission: 09/28/21 16:39 Medications and Allergies Allergies Allergy/AdvReac Type Severity Reaction Status Date / Time No Known Allergies Allergy Unverified 01/17/17 01:04 Home Medications Medication Instructions Recorded Confirmed Last Taken Type Pantoprazole [Protonix TAB] 40 mg PO BIDAC 30 Days #60 tablet 09/25/21 Unknown Rx Tamsulosin [Flomax] 0.8 mg PO QDAY 30 Days #30 capsule 09/25/21 Unknown Rx amLODIPine 10 mg PO QDAY 30 Days #30 tablet 09/25/21 Unknown Rx calcitrioL [Rocaltrol] 0.5 mcg PO QDAY 30 Days #30 capsule 09/25/21 Unknown Rx carvediloL [Coreg] 6.25 mg PO BID 30 Days #60 tablet 09/25/21 Unknown Rx hydrALAZINE [Apresoline TAB] 50 mg PO Q8H 30 Days #90 tablet 09/25/21 Unknown Rx Active Meds: Active Medications Acetaminophen (Acetaminophen 325 Mg Tab) 650 mg PO Q4H PRN PRN Reason: Pain MILD(1-3)/Fever >100.5/LOCO Sodium Chloride (Nacl 0.9%) 100 mls @ 999 mls/hr IV MARTI PRN PRN Reason: Hypotension Morphine Sulfate (Morphine 2 Mg/1 Ml Inj) 2 mg IV Q4H PRN PRN Reason: Pain, Moderate (4-6) Ondansetron HCl (Ondansetron 4 Mg/2 Ml Inj) 4 mg IV Q8H PRN PRN Reason: Nausea And Vomiting Sodium Chloride (Sodium Chloride 0.9% 10 Ml Flush Syringe) 10 ml IV BID LENY Sodium Chloride (Sodium Chloride 0.9% 10 Ml Flush Syringe) 10 ml IV PRN PRN PRN Reason: LINE FLUSH Exam - Constitutional Vitals: Temp Pulse Resp BP Pulse Ox 97.8 F 84 18 146/84 100 09/28/21 20:30 09/28/21 20:30 09/28/21 20:30 09/28/21 20:30 09/28/21 20:30 General appearance: Present: no acute distress, well-nourished - EENT Eyes: Present: PERRL ENT: hearing intact, clear oral mucosa - Neck Neck: Present: supple, normal ROM - Respiratory Respiratory effort: normal Respiratory: bilateral: CTA - Cardiovascular Heart Sounds: Present: S1 & S2. Absent: rub, click - Extremities Extremities: pulses symmetrical, No edema Peripheral Pulses: within normal limits - Abdominal General gastrointestinal: Present: soft, non-tender, non-distended, normal bowel sounds Male genitourinary: Present: normal - Integumentary Integumentary: Present: clear, warm, dry - Musculoskeletal Musculoskeletal: gait normal, strength equal bilaterally - Psychiatric Psychiatric: appropriate mood/affect, intact judgment & insight - Neurologic Neurologic: CNII-XII intact, moves all extremities Results - Labs CBC & Chem 7: 09/28/21 13:02 09/28/21 13:02 Labs: Laboratory Last Values WBC 6.6 K/mm3 (4.5-11.0) 09/28/21 13:02 RBC 3.55 M/mm3 (3.65-5.03) L 09/28/21 13:02 Hgb 9.9 gm/dl (11.8-15.2) L 09/28/21 13:02 Hct 31.8 % (35.5-45.6) L 09/28/21 13:02 MCV 90 fl (84-94) 09/28/21 13:02 MCH 28 pg (28-32) 09/28/21 13:02 MCHC 31 % (32-34) L 09/28/21 13:02 RDW 18.6 % (13.2-15.2) H 09/28/21 13:02 Plt Count 550 K/mm3 (140-440) H 09/28/21 13:02 Lymph % (Auto) 17.4 % (13.4-35.0) 09/28/21 13:02 [place] % (Auto) 10.4 % (0.0-7.3) H 09/28/21 13:02 Eos % (Auto) 3.1 % (0.0-4.3) 09/28/21 13:02 Baso % (Auto) 2.0 % (0.0-1.8) H 09/28/21 13:02 Lymph # (Auto) 1.2 K/mm3 (1.2-5.4) 09/28/21 13:02 [place] # (Auto) 0.7 K/mm3 (0.0-0.8) 09/28/21 13:02 Eos # (Auto) 0.2 K/mm3 (0.0-0.4) 09/28/21 13:02 Baso # (Auto) 0.1 K/mm3 (0.0-0.1) 09/28/21 13:02 Seg Neutrophils % 67.1 % (40.0-70.0) 09/28/21 13:02 Seg Neutrophils # 4.4 K/mm3 (1.8-7.7) 09/28/21 13:02 Sodium 140 mmol/L (137-145) 09/28/21 13:02 Potassium 6.5 mmol/L (3.6-5.0) H* D 09/28/21 13:02 Chloride 107.6 mmol/L (98-107) H 09/28/21 13:02 Carbon Dioxide 15 mmol/L (22-30) L D 09/28/21 13:02 Anion Gap 24 mmol/L 09/28/21 13:02 BUN 90 mg/dL (9-20) H 09/28/21 13:02 Creatinine 11.6 mg/dL (0.8-1.3) H D 09/28/21 13:02 Estimated GFR 5 ml/min 09/28/21 13:02 BUN/Creatinine Ratio 8 % 09/28/21 13:02 Glucose 86 mg/dL (75-100) 09/28/21 13:02 Calcium 9.3 mg/dL (8.4-10.2) 09/28/21 13:02 Total Bilirubin 0.20 mg/dL (0.1-1.2) 09/28/21 13:02 AST 15 units/L (5-40) 09/28/21 13:02 ALT < 5 units/L (7-56) L 09/28/21 13:02 Alkaline Phosphatase 74 units/L (35-129) 09/28/21 13:02 Total Protein 8.2 g/dL (6.3-8.2) 09/28/21 13:02 Albumin 3.9 g/dL (3.9-5) 09/28/21 13:02 Albumin/Globulin Ratio 0.9 % 09/28/21 13:02 Urine Color Straw (Yellow) 09/28/21 12:22 Urine Turbidity Clear (Clear) 09/28/21 12:22 Urine pH 6.0 (5.0-7.0) 09/28/21 12:22 Ur Specific [place] 1.009 (1.003-1.030) 09/28/21 12:22 Urine Protein 100 mg/dl mg/dL (Negative) 09/28/21 12:22 Urine Glucose (UA) 50 mg/dL (Negative) 09/28/21 12:22 Urine Ketones Neg mg/dL (Negative) 09/28/21 12:22 Urine Blood Sm (Negative) 09/28/21 12:22 Urine Nitrite Neg (Negative) 09/28/21 12:22 Urine Bilirubin Neg (Negative) 09/28/21 12:22 Urine Urobilinogen < 2.0 mg/dL (<2.0) 09/28/21 12:22 Ur Leukocyte Esterase Mod (Negative) 09/28/21 12:22 Urine WBC (Auto) 11.0 /HPF (0.0-6.0) H 09/28/21 12:22 Urine RBC (Auto) 7.0 /HPF (0.0-6.0) 09/28/21 12:22 Urine Bacteria (Auto) 1+ /HPF (Negative) 09/28/21 12:22 Urine Mucus Few /HPF 09/28/21 12:22 Assessment and Plan Advance Directives: Yes - Patient Problems (1) Acute hyperkalemia Current Visit: Yes Status: Acute (2) ESRD needing dialysis Current Visit: Yes Status: Acute (3) DVT prophylaxis Current Visit: No Status: Acute
--- NOTE | 2021-09-28 21:38 | Discharge Summary ---
Providers - Providers Date of Admission: 09/28/21 16:39 Date of discharge: 09/28/21 Attending physician: CAPRICE NEVES 09/28/21 16:14 Consult to Physician [CONS] Urgent Comment: Consulting Provider: IRIS MCWILLIAMS Physician Instructions: Reason For Exam: esrd needing dialysis, hyperkalemia Primary care physician: SEAN DAVID Hospitalization Condition: Stable - Discharge Diagnoses (1) Acute hyperkalemia Status: Acute (2) ESRD needing dialysis Status: Acute (3) DVT prophylaxis Status: Acute Core Measure Documentation - Palliative Care Palliative Care/ Comfort Measures: Not Applicable Exam - Constitutional Vitals: Temp Pulse Resp BP Pulse Ox 97.8 F 84 18 146/84 100 09/28/21 20:30 09/28/21 20:30 09/28/21 20:30 09/28/21 20:30 09/28/21 20:30 Plan
[2021-09-28] MEDS ORDERED: LORazepam 2 MG/ML VIAL IV PRN (22:11)
--- NOTE | 2021-09-29 18:17 | Electrocardiograph Report ---
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
== END 2021-09-29 00:20 | disposition home or self-care (01) ==
LOC: ED 11:31 → 4A 16:39
PROVIDERS: ADMIT Internal Medicine; ATTEND Internal Medicine
DX: E87.5 Hyperkalemia (principal); N18.6 End stage renal disease; Z99.2 Dependence on renal dialysis; Z79.899 Other long term (current) drug therapy
CPT/HCPCS: 36415; 80053; 81001; 84132; 85025; 87086; 93005; 94644; 96374; 96375; 99284; G0257; G0378; J0610; J1940; J3490; Q9967; J1815

== ENCOUNTER 2021-10-01 08:37 | Inpatient (IN) | payer SELFPAY ==
[2021-10-01 11:28] LABS: Hematocrit 31.3 % (35.5-45.6); Hemoglobin 9.9 gm/dl (11.8-15.2); Mean Corpuscular HGB Conc 32 % (32-34); Mean Corpuscular Volume 87 fl (84-94); Platelet Count 589 K/mm3 (140-440); Red Blood Count 3.59 M/mm3 (3.65-5.03); Red Cell Distribution Width 17.6 % (13.2-15.2)
[2021-10-01 12:01] LABS: Albumin 3.9 g/dL (3.9-5); Blood Urea Nitrogen 64 mg/dL (9-20); Calcium 9.2 mg/dL (8.4-10.2); Hemolysis Index 25
[2021-10-01 12:02] LABS: Alanine Aminotransferase < 5 units/L (7-56); BUN/Creatinine Ratio 7
[2021-10-01] MEDS ORDERED: INSULIN REGULAR, HUMAN 100 UNITS/1 ML IV ONE (12:12)
[2021-10-01] MEDS ORDERED: ALBUTEROL 2.5 MG/3 ML NEBU IH ONE ×2 (12:12→14:30)
[2021-10-01] MEDS ORDERED: DEXTROSE 50% IN WATER (25GM) 50 ML SYRINGE IV ONE (12:12)
[2021-10-01] MEDS ORDERED: SODIUM BICARB 8.4% 50 MEQ/50 ML SYRINGE IV ONE (12:12)
--- NOTE | 2021-10-01 12:23 | Emergency Department Report ---
HPI - General Chief Complaint: Medical Clearance Time Seen by Provider: 10/01/21 12:11 - HPI HPI: Room 38 Patient is a 61-year-old male present with a chief complaint of end-stage renal disease. Patient has a history end-stage renal disease and states he does not have a dedicated dialysis center. Patient states he was last dialyzed 3 days ago and was told to check back in a couple days to see if he needs dialysis. Patient denies shortness of breath. Patient only complains of tingling in his toes which she states has been present for several months. ED Past Medical Hx - Past Medical History Hx Congestive Heart Failure: No Hx Diabetes: No Hx Asthma: No Hx COPD: No Hx HIV: No Additional medical history: Permcath - Social History Smoking Status: Unknown if ever smoked - Medications Home Medications: Home Medications Medication Instructions Recorded Confirmed Last Taken Type Pantoprazole [Protonix TAB] 40 mg PO BIDAC 30 Days #60 tablet 09/25/21 Unknown Rx Tamsulosin [Flomax] 0.8 mg PO QDAY 30 Days #30 capsule 09/25/21 Unknown Rx amLODIPine 10 mg PO QDAY 30 Days #30 tablet 09/25/21 Unknown Rx calcitrioL [Rocaltrol] 0.5 mcg PO QDAY 30 Days #30 capsule 09/25/21 Unknown Rx carvediloL [Coreg] 6.25 mg PO BID 30 Days #60 tablet 09/25/21 Unknown Rx hydrALAZINE [Apresoline TAB] 50 mg PO Q8H 30 Days #90 tablet 09/25/21 Unknown Rx ED Review of Systems ROS: Stated complaint: TINGLY FEET Other details as noted in HPI Physical Exam - Physical Exam Vital Signs: Vital Signs 10/01/21 09:20 Temperature 98.4 F Pulse Rate 77 Respiratory 18 Rate Blood Pressure 120/75 [Right] O2 Sat by Pulse 98 Oximetry ED Course Vital Signs 10/01/21 09:20 Temperature 98.4 F Pulse Rate 77 Respiratory 18 Rate Blood Pressure 120/75 [Right] O2 Sat by Pulse 98 Oximetry - Consultations Consultation #1: 10/01/21 12:16 Nephrology paged 10/01/21 12:[address] Salazar- will arrange for hemodialysis. Recommends Kayexalate 30 g ED Medical Decision Making - Lab Data Result diagrams: 10/01/21 11:10 10/01/21 11:10 Laboratory Tests 10/01/21 10/01/21 11:10 11:10 WBC 9.7 RBC 3.59 L Hgb 9.9 L Hct 31.3 L MCV 87 MCH 28 MCHC 32 RDW 17.6 H Plt Count 589 H Sodium 137 Potassium 6.4 H* D Chloride 102.5 Carbon Dioxide 20 L Anion Gap 21 BUN 64 H Creatinine 9.0 H Estimated GFR 7 BUN/Creatinine Ratio 7 Glucose 88 Calcium 9.2 Total Bilirubin 0.20 AST 15 ALT < 5 L Alkaline Phosphatase 65 Total Protein 8.2 Albumin 3.9 Albumin/Globulin Ratio 0.9 - EKG Data -: EKG Interpreted by [place] EKG shows normal: sinus rhythm Rate: normal - EKG Data When compared to previous EKG there are: no significant change Interpretation: unchanged when compared t (09/28/2021) - Differential Diagnosis ESRD, hyperkalemia Critical care attestation.: If time is entered above; I have spent that time in minutes in the direct care of this critically ill patient, excluding procedure time. ED Disposition Clinical Impression: ESRD needing dialysis, Hyperkalemia Disposition: 09 ADMITTED INPATIENT Is pt being admited?: Yes Does the pt Need Aspirin: No Condition: Fair Referrals: PRIMARY CARE, [Primary Care Provider] - 3-5 Days Time of Disposition: 12:47 (Care transferred to hospitalist (Dr. Pugh))
[2021-10-01] MEDS ORDERED: SODIUM POLYSTYRENE 15 GM/60 ML ORAL LIQD PO ONE (12:36)
[2021-10-01] MEDS ORDERED: HYDROmorphone 0.5 MG/0.5 ML INJ IV PRN (12:46)
[2021-10-01] MEDS ORDERED: ACETAMINOPHEN 325 MG TAB PO PRN (12:46)
[2021-10-01] MEDS ORDERED: ALBUTEROL 2.5 MG/3 ML NEBU IH PRN (12:46)
[2021-10-01] MEDS ORDERED: ONDANSETRON 4 MG/2 ML INJ IV PRN (12:46)
[2021-10-01] MEDS ORDERED: oxyCODONE /ACETAMINOPHEN 5-325MG TAB PO PRN (12:46)
--- NOTE | 2021-10-01 12:51 | History and Physical Report ---
History of Present Illness Chief complaint: I need dialysis History of present illness: 61 YO Male with ESRD on HD(T,R,Sa), HTN, BPH presents to ED for evaluation. Pt reports "I need dialysis". Patient states that he was last dialyzed 2 days ago and does not have a dedicated outpatient dialysis center. Patient transported to [facility] via private vehicle for further care and evaluation of the aforementioned symptoms. The patient was seen and evaluated in the emergency department. All lab and imaging studies reviewed. Patient found to have end-stage renal disease complicated by fluid overload, hyperkalemia, and metabolic acidosis. Patient admitted to medical floor due to increased risk of worsening symptoms. N ephrology team consulted in ED for urgent dialysis. Patient denies fever, chills, chest pain, palpitation, productive cough, skin rash, recent contact, known exposure to COVID-19. Prior admission on 09/28/2021 reviewed. All medication listed at time of admission has been reconciled. Advanced care planning conducted in ED. Past History Past Medical History: ESRD, hypertension, other (See HPI) Past Surgical History: Other (Dialysis access) Social history: , lives with family Family history: hypertension Medications and Allergies Allergies Allergy/AdvReac Type Severity Reaction Status Date / Time No Known Allergies Allergy Unverified 01/17/17 01:04 Home Medications Medication Instructions Recorded Confirmed Last Taken Type Pantoprazole [Protonix TAB] 40 mg PO BIDAC 30 Days #60 tablet 09/25/21 Unknown Rx Tamsulosin [Flomax] 0.8 mg PO QDAY 30 Days #30 capsule 09/25/21 Unknown Rx amLODIPine 10 mg PO QDAY 30 Days #30 tablet 09/25/21 Unknown Rx calcitrioL [Rocaltrol] 0.5 mcg PO QDAY 30 Days #30 capsule 09/25/21 Unknown Rx carvediloL [Coreg] 6.25 mg PO BID 30 Days #60 tablet 09/25/21 Unknown Rx hydrALAZINE [Apresoline TAB] 50 mg PO Q8H 30 Days #90 tablet 09/25/21 Unknown Rx Active Meds: Active Medications Acetaminophen (Acetaminophen 325 Mg Tab) 650 mg PO Q4H PRN PRN Reason: Pain MILD(1-3)/Fever >100.5/LOCO Albuterol (Albuterol 2.5 Mg/3 Ml Nebu) 2.5 mg IH Q4HRT PRN PRN Reason: Shortness Of Breath Hydromorphone HCl (Hydromorphone 0.5 Mg/0.5 Ml Inj) 0.5 mg IV Q13H PRN PRN Reason: Pain , Severe (7-10) Calcium Gluconate 1,000 mg/ (Sodium Chloride) 110 mls @ 660 mls/hr IV ONCE ONE Stop: 10/01/21 12:21 Ondansetron HCl (Ondansetron 4 Mg/2 Ml Inj) 4 mg IV Q8H PRN PRN Reason: Nausea And Vomiting Oxycodone/Acetaminophen (Oxycodone /Acetaminophen 5-325mg Tab) 1 tab PO Q6H PRN PRN Reason: Pain, Moderate (4-6) Sodium Chloride (Sodium Chloride 0.9% 10 Ml Flush Syringe) 10 ml IV BID LENY Sodium Chloride (Sodium Chloride 0.9% 10 Ml Flush Syringe) 10 ml IV PRN PRN PRN Reason: LINE FLUSH Review of Systems Constitutional: no weight loss, no weight gain, no fever, no chills Ears, nose, mouth and throat: no ear pain, no tinnitis, no sinus pain Cardiovascular: no chest pain, no palpitations, no edema, no syncope Respiratory: no cough, no cough with sputum Gastrointestinal: no abdominal pain, no nausea, no constipation, no change in bowel habits Genitourinary Male: no hematuria, no discharge, no urinary frequency, no urinary hesitancy Rectal: no pain, no incontinence, no bleeding Musculoskeletal: no neck stiffness, no neck pain, no arm numbness/tingling, no low back pain, no shooting leg pain, no redness of joints Integumentary: no rash, no wounds, no jaundice Neurological: no head injury, no transient paralysis, no weakness, no seizures, no syncope Psychiatric: no anxiety, no change in sleep habits, no hypersomnia, no change in libido Endocrine: no cold intolerance, no heat intolerance, no excessive thirst, no polyuria, no excessive sweating Hematologic/Lymphatic: no easy bruising, no easy bleeding Allergic/Immunologic: no allergic rhinitis, no wheezing Exam - Constitutional Vitals: Temp Pulse Resp BP Pulse Ox 98.4 F 77 18 120/75 98 10/01/21 09:20 10/01/21 09:20 10/01/21 09:20 10/01/21 09:20 10/01/21 09:20 General appearance: Present: mild distress - EENT Eyes: Present: PERRL ENT: hearing intact, clear oral mucosa - Neck Neck: Present: supple, normal ROM - Respiratory Respiratory effort: normal Respiratory: bilateral: CTA - Cardiovascular Heart Sounds: Present: S1 & S2. Absent: rub, click - Extremities Extremities: pulses symmetrical, No edema Peripheral Pulses: within normal limits - Abdominal General gastrointestinal: Present: soft, non-tender, non-distended, normal bowel sounds Male genitourinary: Present: normal - Integumentary Integumentary: Present: clear, warm, dry - Musculoskeletal Musculoskeletal: gait normal, strength equal bilaterally - Psychiatric Psychiatric: appropriate mood/affect, intact judgment & insight - Neurologic Neurologic: CNII-XII intact, moves all extremities Results - Labs CBC & Chem 7: 10/01/21 11:10 10/01/21 11:10 Labs: Abnormal lab results 10/01/21 10/01/21 Range/Units 11:10 11:10 RBC 3.59 L (3.65-5.03) M/mm3 Hgb 9.9 L (11.8-15.2) gm/dl Hct 31.3 L (35.5-45.6) % RDW 17.6 H (13.2-15.2) % Plt Count 589 H (140-440) K/mm3 Potassium 6.4 H* D (3.6-5.0) mmol/L Carbon Dioxide 20 L (22-30) mmol/L BUN 64 H (9-20) mg/dL Creatinine 9.0 H (0.8-1.3) mg/dL ALT < 5 L (7-56) units/L Assessment and Plan - Patient Problems (1) ESRD needing dialysis Current Visit: Yes Status: Acute Plan to address problem: Nephrology team consulted in ED, dialysis as per renal team, strict I's/O, mo nitor fluid balance, supportive care (2) Hyperkalemia Current Visit: Yes Status: Acute Plan to address problem: No EKG changes, calcium gluconate, Kayexalate, repeat BMP in a.m., urgent dialysis. (3) Acidosis Current Visit: No Status: Acute Plan to address problem: Urgent dialysis, nephrology team consulted in ED, supportive care. (4) DVT prophylaxis Current Visit: No Status: Acute Plan to address problem: SCD to bilateral lower extremities while in bed (5) Advance care planning Current Visit: Yes Status: Acute Plan to address problem: Disease education data, care plan discussed, diagnoses discussed, prognosis discussed, patient is full code. Patient knowledges understanding and agreement with care plan, +30 minutes. (6) Preventative health care Current Visit: Yes Status: Acute Plan to address problem: Patient counseled regarding compliance with outpatient dialysis, renal diet, patient instructed to follow-up with primary care physician for all age and risk factor appropriate screening tests. +30 minutes.
[2021-10-01] MEDS ORDERED: CALCIUM GLUCONATE 1,000 MG in SODIUM CHLORIDE 0.9% 100 ML IV ONE (13:00)
[2021-10-01] MEDS ORDERED: HEPARIN 10,000 UNITS/10 ML VIAL IV PRN (13:10)
[2021-10-01] MEDS ORDERED: SODIUM CHLORIDE 0.9% 100 ML IV PRN (13:10)
[2021-10-01] MEDS ORDERED: SODIUM BICARB 8.4% 50 MEQ/50 ML SYRINGE IV NR (15:00)
[2021-10-01] MEDS ORDERED: INSULIN REGULAR, HUMAN 100 UNITS/1 ML IV NR (15:00)
[2021-10-01] MEDS ORDERED: DEXTROSE 50% IN WATER (25GM) 50 ML SYRINGE IV NR (15:00)
[2021-10-02 04:37] VITALS: BP 129/74
[2021-10-02 08:06] LABS: Calcium 8.7 mg/dL (8.4-10.2)
[2021-10-02] MEDS ORDERED: PANTOPRAZOLE 40 MG TAB PO SCH (09:00)
[2021-10-02] MEDS ORDERED: TAMSULOSIN 0.4 MG CAP PO SCH (10:00)
[2021-10-02] MEDS ORDERED: CALCITRIOL 0.5 MCG CAP PO SCH (10:00)
[2021-10-02] MEDS ORDERED: amLODIPine 10 MG TAB PO SCH (10:00)
[2021-10-02] MEDS ORDERED: carvediloL 6.25 MG TAB PO SCH (10:00)
--- NOTE | 2021-10-02 13:10 | Consultation ---
History of Present Illness - Reason for Consult Consult date: 10/02/21 acute renal failure, end stage renal disease, hyperkalemia - History of Present Illness The patient is a 61 YO male with history notable for HTN, BPH, obstructive Uropathy with chronic león catheter, Anemia and ESRD on HD who presented to [facility] ED 10/01/21 for hemodialysis need. Patient was started on hemodialysis during the prior admission. He is currently not established with any outpatient dialysis center and comes to [facility] ED for hemodialysis. He was last dialyzed on 09/28/21. Patient denies any symptoms at this time. All lab and imaging studies reviewed. Patient found to have K 6.4 and bicarb 20. Nephrology consulted for ESRD management. Past History Past Medical History: anemia, dialysis, ESRD, hypertension, other (See HPI) Past Surgical History: Other (Dialysis access) Social history: , lives with family Family history: hypertension Medications and Allergies Allergies Allergy/AdvReac Type Severity Reaction Status Date / Time No Known Allergies Allergy Unverified 01/17/17 01:04 Home Medications Medication Instructions Recorded Confirmed Last Taken Type Pantoprazole [Protonix TAB] 40 mg PO BIDAC 30 Days #60 tablet 09/25/21 10/02/21 Unknown Rx Tamsulosin [Flomax] 0.8 mg PO QDAY 30 Days #30 capsule 09/25/21 10/02/21 Unknown Rx amLODIPine 10 mg PO QDAY 30 Days #30 tablet 09/25/21 10/02/21 Unknown Rx calcitrioL [Rocaltrol] 0.5 mcg PO QDAY 30 Days #30 capsule 09/25/21 10/02/21 Unknown Rx carvediloL [Coreg] 6.25 mg PO BID 30 Days #60 tablet 09/25/21 10/02/21 Unknown Rx hydrALAZINE [Apresoline TAB] 50 mg PO Q8H 30 Days #90 tablet 09/25/21 10/02/21 Unknown Rx Active Meds: Active Medications Acetaminophen (Acetaminophen 325 Mg Tab) 650 mg PO Q4H PRN PRN Reason: Pain MILD(1-3)/Fever >100.5/LOCO Last Admin: 10/01/21 23:06 Dose: 650 mg Albuterol (Albuterol 2.5 Mg/3 Ml Nebu) 2.5 mg IH Q4HRT PRN PRN Reason: Shortness Of Breath Amlodipine Besylate (Amlodipine 10 Mg Tab) 10 mg PO QDAY [facility] Last Admin: 10/02/21 09:54 Dose: 10 mg Calcitriol (Calcitriol 0.5 Mcg Cap) 0.5 mcg PO QDAY [facility] Last Admin: 10/02/21 09:56 Dose: 0.5 mcg Carvedilol (Carvedilol 6.25 Mg Tab) 6.25 mg PO BID [facility] Last Admin: 10/02/21 09:54 Dose: 6.25 mg Heparin Sodium (Porcine) (Heparin 10,000 Units/10 Ml Vial) 3,000 unit IV MARTI PRN PRN Reason: hemodialysis Last Admin: 10/01/21 15:26 Dose: 3,000 unit Hydralazine HCl (Hydralazine 25 Mg Tab) 50 mg PO Q8HR [facility] Hydromorphone HCl (Hydromorphone 0.5 Mg/0.5 Ml Inj) 0.5 mg IV Q13H PRN PRN Reason: Pain , Severe (7-10) Sodium Chloride (Nacl 0.9%) 100 mls @ 999 mls/hr IV MARTI PRN PRN Reason: Hypotension Ondansetron HCl (Ondansetron 4 Mg/2 Ml Inj) 4 mg IV Q8H PRN PRN Reason: Nausea And Vomiting Oxycodone/Acetaminophen (Oxycodone /Acetaminophen 5-325mg Tab) 1 tab PO Q6H PRN PRN Reason: Pain, Moderate (4-6) Pantoprazole Sodium ([facility] 40 Mg Tab) [facility] Last Admin: 10/02/21 10:36 Dose: 40 mg Sodium Chloride (Sodium Chloride 0.9% 10 Ml Flush Syringe) 10 ml IV BID [facility] Last Admin: 10/02/21 09:56 Dose: 10 ml Sodium Chloride (Sodium Chloride 0.9% 10 Ml Flush Syringe) 10 ml IV PRN PRN PRN Reason: LINE FLUSH Tamsulosin HCl (Tamsulosin 0.4 Mg Cap) 0.8 mg PO QDAY [facility] Last Admin: 10/02/21 09:54 Dose: 0.8 mg Review of Systems All systems: negative Exam - Vital Signs Vital signs: Vital Signs Temp Pulse Resp BP Pulse Ox 98.4 F 77 18 120/75 98 10/01/21 09:20 10/01/21 09:20 10/01/21 09:20 10/01/21 09:20 10/01/21 09:20 Results - Lab Results 10/01/21 11:10 10/02/21 07:18 Most recent lab results Calcium 8.7 mg/dL (8.4-10.2) 10/02/21 07:18 Assessment and Plan 1. ESRD: Patient is on maintenance HD. Currently not establised with any dialysis unit. Meds dosage based on GFR. Hemodialysis: 10/01. 2. FEN: Hyperkalemia, improved with HD. Renal diet. Binders as needed. Monitor lytes and volume status. 3. HTN: Volume control thru HD. Adjust meds as needed. Monitor BP. Advised to limit salt and fluid intake. 4. BPH with obstructive Uropathy: Has León catheter. 5. Anemia: Epogen as needed. Need outpatient HD chair. Subjective: Patient was seen and examined at the bedside. Examination: General appearance: well-developed, well-nourished, appears stated age, no distress HEENT: ATNC, no icterus Neck: trachea midline Respiratory: Clear to Auscultation Cardiology: regular, S1S2, no murmur Gastrointestinal: soft, normoactive bowel sounds, not tender, ND Integumentary: no rash Neurologic: AO, conversing, able to move extremities Ext: no edema noted Hemodialysis access: R IJ non-tunnel catheter
[2021-10-02] MEDS ORDERED: hydrALAZINE 25 MG TAB PO SCH (14:00)
--- NOTE | 2021-10-02 14:07 | Discharge Summary ---
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 Patient states that he was last dialyzed 2 days ago [facility] and does not have a dedicated outpatient dialysis center. Patient transported to [facility] via private vehicle for further care and evaluation of the aforementioned symptoms. The patient was seen and evaluated in the emergency department. All lab and imaging studies reviewed. Patient found to have end-stage renal disease complicated by fluid overload, hyperkalemia, and metabolic acidosis. Patient admitted to medical floor due to increased risk of worsening symptoms. Nephrology team consulted in ED for urgent dialysis. The patient received urgent hemodialysis yesterday. Nephrology felt the patient could discharge home and is to follow-up with nephrology as an outpatient. Also, based on recent discharge on 09/25/2021. Instructions are as follows: Our social services coordinator gave patient resources for outpatient dialysis centers and patient was advised that in an emergent situation patient would likely need to present to the emergency department for dialysis should he need it. He was advised to follow-up outpatient with urology, Dr. Jaramillo as well as nephrology Dr. Rhodes. He was also advised to establish with a primary care physician. Information for Dr. Tolentino was given to patient. He should resume the prescriptions given at that discharge including amlodipine 10 mg p.o. daily, hydralazine 50 mg p.o. every 8 hour, carvedilol 6.25 mg p.o. twice daily, Flomax 0.8 mg p.o. daily, Protonix 40 mg p.o. twice daily, calcitriol 0.5 mcg p.o. daily. He will also be discharged with Montano catheter as urinary obstruction will need to be addressed as an outpatient with urology. Dedicated discharge time 35 minutes Disposition: 30 STILL A PATIENT Final Discharge Diagnosis (Prints w/discharge instructions): Acute kidney injury with probable HUS, hemodialysis needs, obstructive uropathy, hyperkalemia Core Measure Documentation - Palliative Care Palliative Care/ Comfort Measures: Not Applicable - Core Measures Any of the following diagnoses?: none Exam - Constitutional Vitals: Temp Pulse Resp BP Pulse Ox 98.3 F 74 18 129/74 98 10/02/21 04:34 10/02/21 04:34 10/02/21 04:34 10/02/21 04:34 10/02/21 10:00 General appearance: Present: no acute distress, well-nourished - EENT Eyes: Present: PERRL ENT: hearing intact, clear oral mucosa - Neck Neck: Present: supple, normal ROM - Respiratory Respiratory effort: normal Respiratory: bilateral: CTA - Cardiovascular Heart Sounds: Present: S1 & S2. Absent: rub, click - Extremities Extremities: pulses symmetrical, No edema Peripheral Pulses: within normal limits - Abdominal General gastrointestinal: Present: soft, non-tender, non-distended, normal bowel sounds Male genitourinary: Present: normal - Integumentary Integumentary: Present: clear, warm, dry - Musculoskeletal Musculoskeletal: gait normal, strength equal bilaterally - Psychiatric Psychiatric: appropriate mood/affect, intact judgment & insight - Neurologic Neurologic: CNII-XII intact, moves all extremities Plan Activity: advance as tolerated Weight Bearing Status: Weight Bear as Tolerated Diet: renal Follow up with: SAURAV HARPER MD [Primary Care Provider] - 3-5 Days CHINO RHODES MD [Staff Physician] - 7 Days MILAD CASTELLANOS MD [Staff Physician] - 7 Days MOE MENDENHALL MD [Staff Physician] - 7 Days
== END 2021-10-02 15:28 | disposition home or self-care (01) | DRG 640 ==
LOC: ED 08:37 → 3A 12:47
PROVIDERS: ADMIT Internal Medicine; ATTEND Hospitalist
PROC: 5A1D70Z Performance of Urinary Filtration, Intermittent, Less than 6 Hours Per Day (ICD-10-PCS; principal; 2021-10-01)
DX: E87.5 Hyperkalemia (principal); N18.6 End stage renal disease; I12.0 Hypertensive chronic kidney disease with stage 5 chronic kidney disease or end stage renal disease; N17.9 Acute kidney failure, unspecified; N40.1 Benign prostatic hyperplasia with lower urinary tract symptoms; D64.9 Anemia, unspecified; Z82.49 Family history of ischemic heart disease and other diseases of the circulatory system
CPT/HCPCS: 36415; 80048; 80053; 84132; 85027; 93005; 94644; G0378; J0610; J1644

== ENCOUNTER → 2021-10-04 | Emergency (ER) | payer SELFPAY ==
[~2021-10-04] MED LIST: ACETAMINOPHEN 325 MG TAB PO PRN; ALBUTEROL 2.5 MG/3 ML NEBU IH ONE; ALBUTEROL 2.5 MG/3 ML NEBU IH PRN; EPOETIN ALFA-EPBX 10,000 UNIT/1 ML VIAL SUB-Q PRN; HEPARIN 10,000 UNITS/10 ML VIAL IV PRN; HYDROmorphone 0.5 MG/0.5 ML INJ IV PRN; ONDANSETRON 4 MG/2 ML INJ IV PRN; SODIUM CHLORIDE 0.9% 100 ML IV PRN; oxyCODONE /ACETAMINOPHEN 5-325MG TAB PO PRN
[2021-10-04 10:56] LABS: Basophils # (Auto) 0.1 K/mm3 (0.0-0.1); Basophils % (Auto) 1.4 % (0.0-1.8); Eosinophils # (Auto) 0.3 K/mm3 (0.0-0.4); Eosinophils % (Auto) 3.3 % (0.0-4.3); Hematocrit 30.9 % (35.5-45.6); Hemoglobin 9.6 gm/dl (11.8-15.2); Lymphocytes # (Auto) 1.2 K/mm3 (1.2-5.4); Lymphocytes % (Auto) 13.8 % (13.4-35.0); Mean Corpuscular HGB Conc 31 % (32-34); Mean Corpuscular Volume 87 fl (84-94); Monocytes # (Auto) 0.8 K/mm3 (0.0-0.8); Monocytes % (Auto) 8.8 % (0.0-7.3); Platelet Count 489 K/mm3 (140-440); Red Blood Count 3.56 M/mm3 (3.65-5.03); Red Cell Distribution Width 17.2 % (13.2-15.2)
[2021-10-04 11:01] LABS: Calcium 9.5 mg/dL (8.4-10.2)
--- NOTE | 2021-10-05 09:19 | XRay Report ---
. XR chest 1V ap INDICATION / CLINICAL INFORMATION: Dyspnea. COMPARISON: 09/09/2021 FINDINGS: SUPPORT DEVICES: Right IJ central venous catheter projects over the cavoatrial junction. HEART /PULMONARY VASCULATURE: Cardiac silhouette is enlarged without significant pulmonary vasculatur e congestion. LUNGS / PLEURA: No significant pulmonary or pleural abnormality. No pneumothorax. ADDITIONAL FINDINGS: No significant additional findings. IMPRESSION: Cardiac enlargement. No evidence of overt failure or other acute chest process. Signer Name: Pascual Mon MD Signed: 10/05/2021 9:15 AM Workstation Name: [id number][id number]
[2021-10-05 10:19] LABS: Creatine Kinase MB 2.5 ng/mL (0.0-4.0)
[2021-10-05 10:21] LABS: Alanine Aminotransferase 6 units/L (7-56); Albumin 4.4 g/dL (3.9-5); Blood Urea Nitrogen 76 mg/dL (9-20); Calcium 9.4 mg/dL (8.4-10.2); Hemolysis Index 15
[2021-10-05 10:31] LABS: BUN/Creatinine Ratio 8; HDL Cholesterol 62 mg/dL (40-59); LDL Cholesterol,Direct 178 mg/dL (50-130)
--- NOTE | 2021-10-05 10:45 | Consultation ---
History of Present Illness - Reason for Consult Consult date: 10/05/21 end stage renal disease, hyperkalemia - History of Present Illness The patient is a 61 YO male with history notable for HTN, BPH, obstructive Uropathy with chronic león catheter, Anemia and ESRD on HD who presented to [facility] ED 10/04/21 for hemodialysis need. Patient was started on hemodialysis during the admission last month. He is currently not established with any outpatient dialysis center and comes to [facility] ED for hemodialysis. He was last dialyzed on 10/01/21. Patient denies any symptoms at this time. All lab and imaging studies reviewed. Patient found to have K 5.6 and bicarb 21. Nephrology consulted for ESRD management. Past History Past Medical History: other (See HPI.) Medications and Allergies Allergies Allergy/AdvReac Type Severity Reaction Status Date / Time No Known Allergies Allergy Unverified 01/17/17 01:04 Home Medications Medication Instructions Recorded Confirmed Last Taken Type Pantoprazole [Protonix TAB] 40 mg PO BIDAC 30 Days #60 tablet 09/25/21 10/02/21 Unknown Rx Tamsulosin [Flomax] 0.8 mg PO QDAY 30 Days #30 capsule 09/25/21 10/02/21 Unknown Rx amLODIPine 10 mg PO QDAY 30 Days #30 tablet 09/25/21 10/02/21 Unknown Rx calcitrioL [Rocaltrol] 0.5 mcg PO QDAY 30 Days #30 capsule 09/25/21 10/02/21 Unknown Rx carvediloL [Coreg] 6.25 mg PO BID 30 Days #60 tablet 09/25/21 10/02/21 Unknown Rx hydrALAZINE [Apresoline TAB] 50 mg PO Q8H 30 Days #90 tablet 09/25/21 10/02/21 Unknown Rx Exam - Vital Signs Vital signs: Vital Signs Temp Pulse Resp BP Pulse Ox 98 F 89 16 128/78 100 10/04/21 10:09 10/04/21 10:09 10/04/21 10:09 10/04/21 10:09 10/04/21 10:09 Results - Lab Results 10/04/21 10:19 10/05/21 09:24 Most recent lab results Calcium 9.4 mg/dL (8.4-10.2) 10/05/21 09:24 Assessment and Plan 1. ESRD: Patient is on maintenance HD. Currently not establised with any dialysis unit. Meds dosage based on GFR. Hemodialysis: today. 2. FEN: Hyperkalemia, HD today. Renal diet. Binders as needed. Monitor lytes and volume status. 3. HTN: Volume control thru HD. Adjust meds as needed. Monitor BP. Advised to limit salt and fluid intake. 4. BPH with obstructive Uropathy: Has León catheter. 5. Anemia: Epogen as needed. The staff at [facility] said that the patient has been accepted and can start treatment on 10/08/21. Subjective: Patient was seen and examined at the bedside. Examination: General appearance: well-developed, well-nourished, appears stated age, no distress HEENT: ATNC, no icterus Neck: trachea midline Respiratory: Clear to Auscultation Cardiology: regular, S1S2, no murmur Gastrointestinal: soft, normoactive bowel sounds, not tender, ND Integumentary: no rash Neurologic: AO, conversing, able to move extremities Ext: no edema noted Hemodialysis access: R IJ non-tunnel catheter
--- NOTE | 2021-10-05 11:43 | History and Physical Report ---
History of Present Illness Chief complaint: I need dialysis History of present illness: 61 YO Male with ESRD on HD(T,R,Sa), HTN, BPH with indwelling león catheter presents to ED for evaluation. Pt reports "I need dialysis". Patient states that he is unable to get outpatient dialysis and does not have a dedicated out patient dialysis center. Patient was last dialyzed on Thursday. Patient transported to [facility] via private vehicle for further care and evaluation of the aforementioned symptoms. The patient was seen and evaluated in the emergency department. All lab and imaging studies reviewed. Patient found to have end- stage renal disease complicated by fluid overload, hyperkalemia, and metabolic acidosis. Patient admitted to medical floor due to increased risk of worsening symptoms. Nephrology team consulted in ED for urgent dialysis. Patient denies fever, chills, chest pain, palpitation, productive cough, skin rash, recent contact, known exposure to COVID-19. Prior admission on 10/01/2021 reviewed. All medication listed at time of admission has been reconciled. Advanced care planning conducted in ED. Past History Past Medical History: ESRD, hypertension, other (See HPI) Past Surgical History: Other (Dialysis access) Social history: . denies: smoking, alcohol abuse, IV drug use Family history: hypertension Medications and Allergies Allergies Allergy/AdvReac Type Severity Reaction Status Date / Time No Known Allergies Allergy Unverified 01/17/17 01:04 Home Medications Medication Instructions Recorded Confirmed Last Taken Type Pantoprazole [Protonix TAB] 40 mg PO BIDAC 30 Days #60 tablet 09/25/21 10/02/21 Unknown Rx Tamsulosin [Flomax] 0.8 mg PO QDAY 30 Days #30 capsule 09/25/21 10/02/21 Unknown Rx amLODIPine 10 mg PO QDAY 30 Days #30 tablet 09/25/21 10/02/21 Unknown Rx calcitrioL [Rocaltrol] 0.5 mcg PO QDAY 30 Days #30 capsule 09/25/21 10/02/21 Unknown Rx carvediloL [Coreg] 6.25 mg PO BID 30 Days #60 tablet 09/25/21 10/02/21 Unknown Rx hydrALAZINE [Apresoline TAB] 50 mg PO Q8H 30 Days #90 tablet 09/25/21 10/02/21 Unknown Rx Active Meds: Active Medications Epoetin Alex-epbx (Epoetin Alex-Epbx 10,000 Unit/1 Ml Vial) 10,000 unit SUB-Q MARTI PRN PRN Reason: hemodialysis Heparin Sodium (Porcine) (Heparin 10,000 Units/10 Ml Vial) 3,000 unit IV MARTI PRN PRN Reason: hemodialysis Sodium Chloride (Nacl 0.9%) 100 mls @ 999 mls/hr IV MARTI PRN PRN Reason: Hypotension Review of Systems Constitutional: no weight loss, no weight gain, no fever Ears, nose, mouth and throat: no ear discharge, no decreased hearing, no nasal congestion, no nasal discharge, no sinus pressure Cardiovascular: no chest pain, no orthopnea, no lightheadedness Respiratory: no cough, no cough with sputum, no shortness of breath Gastrointestinal: no abdominal pain, no nausea, no vomiting, no constipation, no change in bowel habits, no hematemesis Genitourinary Male: no hematuria, no flank pain, no discharge, no urinary frequency, no urinary hesitancy, no incontinence Rectal: no pain, no incontinence, no bleeding Musculoskeletal: no shooting arm pain Integumentary: no rash, no pruritis, no redness, no sores, no wounds, no jaundice, no boils Neurological: no head injury, no transient paralysis, no paralysis, no weakness, no parathesias, no syncope Psychiatric: no anxiety, no memory loss, no sleep disturbances, no insomnia, no hypersomnia, no change in appetite, no change in libido, no suicidal ideation Endocrine: no cold intolerance, no polyphagia, no excessive thirst, no polyuria, no nocturia, no excessive sweating Hematologic/Lymphatic: no easy bruising, no easy bleeding Allergic/Immunologic: no urticaria, no wheezing Exam - Constitutional Vitals: Temp Pulse Resp BP Pulse Ox 98.9 F 72 18 168/105 99 10/05/21 09:48 10/05/21 09:48 10/05/21 09:48 10/05/21 09:48 10/05/21 09:48 General appearance: Present: mild distress - EENT Eyes: Present: PERRL ENT: hearing intact, clear oral mucosa - Neck Neck: Present: supple, normal ROM - Respiratory Respiratory effort: normal Respiratory: bilateral: CTA - Cardiovascular Heart Sounds: Present: S1 & S2. Absent: rub, click - Extremities Extremities: pulses symmetrical, No edema Peripheral Pulses: within normal limits - Abdominal General gastrointestinal: Present: soft, non-tender, non-distended, normal bowel sounds Male genitourinary: Present: normal - Integumentary Integumentary: Present: clear, warm, dry - Musculoskeletal Musculoskeletal: gait normal, strength equal bilaterally - Psychiatric Psychiatric: appropriate mood/affect, intact judgment & insight - Neurologic Neurologic: CNII-XII intact, moves all extremities HEART Score - HEART Score Troponin: Troponin T 0.036 ng/mL (0.00-0.029) H 10/05/21 09:24 Results - Labs CBC & Chem 7: 10/04/21 10:19 10/05/21 09:24 Labs: Abnormal lab results 10/05/21 Range/Units 09:24 Potassium 5.6 H (3.6-5.0) mmol/L Carbon Dioxide 21 L (22-30) mmol/L BUN 76 H (9-20) mg/dL Creatinine 9.8 H (0.8-1.3) mg/dL ALT 6 L (7-56) units/L Troponin T 0.036 H (0.00-0.029) ng/mL Total Protein 8.3 H (6.3-8.2) g/dL Cholesterol 261 H (50-199) mg/dL LDL Cholesterol Direct 178 H (50-130) mg/dL HDL Cholesterol 62 H (40-59) mg/dL Assessment and Plan - Patient Problems (1) ESRD needing dialysis Current Visit: Yes Status: Acute Plan to address problem: Nephrology team consulted in ED, strict I's/O, monitor urine output every shift, daily weight, blood pressure control, afterload reduction, urgent dialysis as per renal team, supportive care. Case management consult placed for assistance with outpatient dialysis center arrangement. (2) Fluid overload Current Visit: Yes Status: Acute Qualifiers: Hypervolemia type: unspecified Qualified Code(s): E87.70 - Fluid overload, unspecified Plan to address problem: Urgent dialysis, supportive care. (3) Acute hyperkalemia Current Visit: No Status: Acute Plan to address problem: Urgent dialysis, no EKG changes. (4) DVT prophylaxis Current Visit: No Status: Acute (5) Advance care planning Current Visit: No Status: Acute Plan to address problem: Disease education conducted, care plan discussed, diagnoses discussed, prognosis discussed, patient is full code. Patient knowledges understanding and agreement with care plan, +30 minutes. (6) Preventative health care Current Visit: No Status: Acute Plan to address problem: Patient counseled regarding compliance with outpatient dialysis, risk factor reduction, renal diet compliance, follow-up with primary care physician as outpatient for all age and risk factor appropriate screening test. +30 minutes.
--- NOTE | 2021-10-05 11:58 | Emergency Department Report ---
ED General Adult HPI - General Chief complaint: Weakness Stated complaint: DIALYSIS Time Seen by Provider: 10/05/21 08:43 Source: patient Mode of arrival: Ambulatory Limitations: No Limitations - History of Present Illness Initial comments: pt presents to ed for dialysis. last had dialysis on thursday -: Gradual, days(s) Severity scale (0 -10): 2 Consistency: intermittent Improves with: none Worsens with: none Associated Symptoms: chest pain, cough, malaise, weakness. denies: denies other symptoms, confusion - Related Data Previous Rx's Medication Instructions Recorded Last Taken Type Pantoprazole [Protonix TAB] 40 mg PO BIDAC 30 Days #60 tablet 09/25/21 Unknown Rx Tamsulosin [Flomax] 0.8 mg PO QDAY 30 Days #30 capsule 09/25/21 Unknown Rx amLODIPine 10 mg PO QDAY 30 Days #30 tablet 09/25/21 Unknown Rx calcitrioL [Rocaltrol] 0.5 mcg PO QDAY 30 Days #30 capsule 09/25/21 Unknown Rx carvediloL [Coreg] 6.25 mg PO BID 30 Days #60 tablet 09/25/21 Unknown Rx hydrALAZINE [Apresoline TAB] 50 mg PO Q8H 30 Days #90 tablet 09/25/21 Unknown Rx Allergies Allergy/AdvReac Type Severity Reaction Status Date / Time No Known Allergies Allergy Unverified 01/17/17 01:04 ED Review of Systems ROS: Stated complaint: DIALYSIS Other details as noted in HPI Constitutional: denies: chills, fever Eyes: denies: eye pain, eye discharge, vision change ENT: denies: ear pain, throat pain Respiratory: denies: cough, shortness of breath, wheezing Cardiovascular: denies: chest pain, palpitations Endocrine: no symptoms reported Gastrointestinal: denies: abdominal pain, nausea, diarrhea Genitourinary: denies: urgency, dysuria Musculoskeletal: denies: back pain, joint swelling, arthralgia Skin: denies: rash, lesions Neurological: denies: headache, weakness, paresthesias Psychiatric: denies: anxiety, depression Hematological/Lymphatic: denies: easy bleeding, easy bruising ED Past Medical Hx - Past Medical History Hx Hypertension: Yes Hx Congestive Heart Failure: No Hx Diabetes: No Hx Asthma: No Hx COPD: No Hx HIV: No Additional medical history: Permcath - Social History Smoking Status: Never Smoker - Medications Home Medications: Home Medications Medication Instructions Recorded Confirmed Last Taken Type Pantoprazole [Protonix TAB] 40 mg PO BIDAC 30 Days #60 tablet 09/25/21 10/02/21 Unknown Rx Tamsulosin [Flomax] 0.8 mg PO QDAY 30 Days #30 capsule 09/25/21 10/02/21 Unknown Rx amLODIPine 10 mg PO QDAY 30 Days #30 tablet 09/25/21 10/02/21 Unknown Rx calcitrioL [Rocaltrol] 0.5 mcg PO QDAY 30 Days #30 capsule 09/25/21 10/02/21 U nknown Rx carvediloL [Coreg] 6.25 mg PO BID 30 Days #60 tablet 09/25/21 10/02/21 Unknown Rx hydrALAZINE [Apresoline TAB] 50 mg PO Q8H 30 Days #90 tablet 09/25/21 10/02/21 Unknown Rx ED Physical Exam - General Limitations: No Limitations General appearance: alert, in distress - Head Head exam: Present: atraumatic, normocephalic - Eye Eye exam: Present: normal appearance - ENT ENT exam: Present: mucous membranes moist - Neck Neck exam: Present: normal inspection - Respiratory Respiratory exam: Present: rales. Absent: respiratory distress - Cardiovascular Cardiovascular Exam: Present: normal rhythm, tachycardia. Absent: systolic murmur, diastolic murmur, rubs, gallop - GI/Abdominal GI/Abdominal exam: Present: soft, normal bowel sounds - Rectal Rectal exam: Present: deferred - Extremities Exam Extremities exam: Present: normal inspection - Back Exam Back exam: Present: normal inspection - Neurological Exam Neurological exam: Present: alert, oriented X3 - Psychiatric Psychiatric exam: Present: normal affect, normal mood - Skin Skin exam: Present: warm, dry, intact, normal color. Absent: rash ED Course Vital Signs 10/04/21 10/05/21 10:09 09:48 Temperature 98 F 98.9 F Pulse Rate 89 72 Respiratory 16 18 Rate Blood Pressure 168/105 Blood Pressure 128/78 [Left] O2 Sat by Pulse 100 99 Oximetry ED Medical Decision Making - Lab Data Result diagrams: 10/04/21 10:19 10/05/21 09:24 Critical care attestation.: If time is entered above; I have spent that time in minutes in the direct care of this critically ill patient, excluding procedure time. ED Disposition Clinical Impression: Elevated troponin, Weakness, ESRD needing dialysis, SOB (shortness of breath), Fluid overload Disposition: 09 ADMITTED INPATIENT Is pt being admited?: Yes Does the pt Need Aspirin: No Condition: Stable Referrals: SEAN DAVID MD [Primary Care Provider] - 3-5 Days
[2021-10-05 19:06] VITALS: BP 126/64
== END | disposition left against medical advice (07) ==
LOC: ED 09:10
DX: R74.8 Abnormal levels of other serum enzymes (principal); R06.02 Shortness of breath; N18.6 End stage renal disease; R53.1 Weakness
CPT/HCPCS: 36415; 71045; 80048; 80053; 80061; 82550; 82553; 84484; 85025; 99283; 99284

== ENCOUNTER 2022-02-01 13:41 | Emergency (ER) | payer SELFPAY ==
--- NOTE | 2022-02-01 16:51 | Event Note ---
ED Screening Note Date of service: 02/01/22 Time: 16:51 ED Screening Note: Report had an indwelling león catheter and wore the catheter for over a month and the león catheter was removed 4 days ago. Feeling of urgency and report foul smelling urine. Hx of ESRD on HD and had HD today This initial assessment/diagnostic orders/clinical plan/treatment(s) is/are subject to change based on patients health status, clinical progression and re- assessment by fellow clinical providers in the ED. Further treatment and workup at subsequent clinical providers discretion. Patient/guardian urged not to elope from the ED as their condition may be serious if not clinically assessed and managed. Initial orders include: Active Orders 24 hr Category Date Time Status Complete Blood Count Auto Diff Stat Lab 02/01/22 16:50 Ordered Comprehensive Metabolic Panel Stat Lab 02/01/22 16:50 Ordered
[2022-02-01 17:15] LABS: Basophils # (Auto) 0.1 K/mm3 (0.0-0.1); Basophils % (Auto) 0.6 % (0.0-1.8); Eosinophils % (Auto) 0.1 % (0.0-4.3); Hematocrit 38.6 % (35.5-45.6); Hemoglobin 12.5 gm/dl (11.8-15.2); Lymphocytes # (Auto) 1.1 K/mm3 (1.2-5.4); Lymphocytes % (Auto) 9.5 % (13.4-35.0); Mean Corpuscular HGB Conc 32 % (32-34); Mean Corpuscular Volume 85 fl (84-94); Monocytes # (Auto) 1.3 K/mm3 (0.0-0.8); Monocytes % (Auto) 12.1 % (0.0-7.3); Platelet Count 253 K/mm3 (140-440); Red Blood Count 4.54 M/mm3 (3.65-5.03); Red Cell Distribution Width 16.3 % (13.2-15.2)
[2022-02-01 17:41] LABS: Albumin 4.2 g/dL (3.9-5); Calcium 9.7 mg/dL (8.4-10.2)
[2022-02-01] MEDS ORDERED: SODIUM POLYSTYRENE 15 GM/60 ML ORAL LIQD PR ONE (23:07)
[2022-02-01] MEDS ORDERED: MORPHINE 4 MG/1 ML INJ IV ONE (23:08)
[2022-02-01] MEDS ORDERED: ONDANSETRON 4 MG/2 ML INJ IV ONE (23:08)
[2022-02-01] MEDS ORDERED: INSULIN REGULAR, HUMAN 100 UNITS/1 ML IV ONE (23:10)
[2022-02-01] MEDS ORDERED: CALCIUM GLUCONATE 1,000 MG/NS 100 ML PREMIX IV ONE (23:10)
[2022-02-01] MEDS ORDERED: DEXTROSE 50% IN WATER (25GM) 50 ML SYRINGE IV ONE (23:10)
--- NOTE | 2022-02-01 23:48 | Emergency Department Report ---
ED Male HPI - General Chief complaint: Urogenital-Male Stated complaint: CATHETER ISSUES Time Seen by Provider: 02/01/22 20:15 Source: patient Mode of arrival: Ambulatory Limitations: No Limitations - History of Present Illness Initial comments: 61-year-old male with a history of end-stage renal disease on dialysis presented to the emergency department dysuria. Patient reports that he has been experiencing difficulty urinating for the last 4 days. States that he has no urge to void but every time he tries to go very scant urine comes out and so metimes no urine at all, and when it comes out it is very "thick BUGGY looking".. He does report history of having a Montano catheter inserted about 3 weeks ago, he went back to his urologist at [facility] and told him to remove it. States when he had a cath that he would void over 1000 mL with a. Patient is currently on dialysis 3 times a week, had his dialysis today Symptoms are associated with with abdominal pain, bladder fullness no flank pain, chills without fever, there is no penile pain, no testicular pain, patient is not sexually active, he denies history of prostate problems. - Related Data Previous Rx's Medication Instructions Recorded Last Taken Type Pantoprazole [Protonix TAB] 40 mg PO BIDAC 30 Days #60 tablet 09/25/21 Unknown Rx amLODIPine 10 mg PO QDAY 30 Days #30 tablet 09/25/21 Unknown Rx calcitrioL [Rocaltrol] 0.5 mcg PO QDAY 30 Days #30 capsule 09/25/21 Unknown Rx carvediloL [Coreg] 6.25 mg PO BID 30 Days #60 tablet 09/25/21 Unknown Rx hydrALAZINE [Apresoline TAB] 50 mg PO Q8H 30 Days #90 tablet 09/25/21 Unknown Rx Tamsulosin [Flomax] 0.8 mg PO QDAY 30 Days #30 capsule 02/02/22 Unknown Rx cephALEXin [Keflex] 500 mg PO Q12HR 7 Days #14 cap 02/02/22 Unknown Rx Allergies Allergy/AdvReac Type Severity Reaction Status Date / Time No Known Allergies Allergy Unverified 01/17/17 01:04 ED Review of Systems ROS: Stated complaint: CATHETER ISSUES Other details as noted in HPI Constitutional: denies: chills, fever Eyes: as per HPI ENT: as per HPI Respiratory: see HPI Cardiovascular: denies: chest pain, palpitations Endocrine: denies: excessive sweating, intolerance to cold Gastrointestinal: abdominal pain. denies: nausea, vomiting, diarrhea Genitourinary: urgency, dysuria, frequency. denies: hematuria Musculoskeletal: denies: back pain Skin: denies: rash Neurological: denies: headache, weakness, numbness Psychiatric: denies: anxiety, depression ED Past Medical Hx - Past Medical History Previous Medical History?: Yes Hx Hypertension: Yes Hx Congestive Heart Failure: No Hx Diabetes: No Hx Renal Disease: Yes (ESRD HD , . Thu) Hx Asthma: No Hx COPD: No Hx HIV: No Additional medical history: Permcath - Surgical History Past Surgical History?: Yes Additional Surgical History: Permcath - Social History Smoking Status: Never Smoker - Medications Home Medications: Home Medications Medication Instructions Recorded Confirmed Last Taken Type Pantoprazole [Protonix TAB] 40 mg PO BIDAC 30 Days #60 tablet 09/25/21 10/02/21 Unknown Rx amLODIPine 10 mg PO QDAY 30 Days #30 tablet 09/25/21 10/02/21 Unknown Rx calcitrioL [Rocaltrol] 0.5 mcg PO QDAY 30 Days #30 capsule 09/25/21 10/02/21 Unknown Rx carvediloL [Coreg] 6.25 mg PO BID 30 Days #60 tablet 09/25/21 10/02/21 Unknown Rx hydrALAZINE [Apresoline TAB] 50 mg PO Q8H 30 Days #90 tablet 09/25/21 10/02/21 Unknown Rx Tamsulosin [Flomax] 0.8 mg PO QDAY 30 Days #30 capsule 02/02/22 Unknown Rx cephALEXin [Keflex] 500 mg PO Q12HR 7 Days #14 cap 02/02/22 Unknown Rx ED Physical Exam - General Limitations: No Limitations General appearance: alert, in no apparent distress - Head Head exam: Present: atraumatic - Eye Eye exam: Present: normal appearance, PERRL Pupils: Present: normal accommodation - ENT ENT exam: Present: normal exam, normal orophraynx - Neck Neck exam: Present: normal inspection. Absent: tenderness - Respiratory Respiratory exam: Present: normal lung sounds bilaterally. Absent: respiratory distress, wheezes - Cardiovascular Cardiovascular Exam: Present: regular rate, normal rhythm - GI/Abdominal GI/Abdominal exam: Present: distended, tenderness (Suprapubic) - Extremities Exam Extremities exam: Present: normal inspection, full ROM - Back Exam Back exam: Present: normal inspection, full ROM. Absent: tenderness, CVA tender ness (R), CVA tenderness (L) - Neurological Exam Neurological exam: Present: alert, oriented X3, CN II-XII intact, normal gait. Absent: motor sensory deficit - Psychiatric Psychiatric exam: Present: normal affect, normal mood - Skin Skin exam: Present: warm, dry, intact, normal color ED Course Vital Signs 02/01/22 02/01/22 16:50 16:51 Temperature 99.1 F 99.1 F Pulse Rate 98 H 98 H Respiratory 18 18 Rate Blood Pressure 103/71 [Right] O2 Sat by Pulse 98 98 Oximetry - Reevaluation(s) Reevaluation #1: 02/02/22 0000 vss,a awaiting ua, pt updated 0210- pending ua, otherwise vss, pt updated ED Medical Decision Making - Lab Data Result diagrams: 02/01/22 17:02 02/02/22 04:19 - Radiology Data IMPRESSION: 1. Persistent bilateral hydroureteronephrosis, likely secondary to a component of urinary outlet obstruction associated with prostatomegaly. Inflammatory narrowing or strictures of the bilateral ureterovesical junctions may also be present. 2. Other chronic incidental findings, as detailed above. - Medical Decision Making Differential diagnoses include ESRD, obstruction, tumor, carcinoma, BPH, pyelonephritis, UTI, other intra-abdominal processes 61-year-old male with a history of end-stage renal disease on dialysis presented to the emergency department dysuria. Patient reports that he has been experiencing difficulty urinating for the last 4 days. States that he has no urge to void but every time he tries to go very scant urine comes out and sometimes no urine at all, and when it comes out it is very "thick BUGGY looking".. He does report history of having a Montano catheter inserted about 3 weeks ago, he went back to his urologist at [place] [facility] to have the catheter removed.. States when he had a cath that he would void over 1000 mL with a a day, but ever since he had it removed 4 days ago, he has been unable to void effectively. Patient is currently on dialysis 3 times a week, had his dialysis today Symptoms are associated with with abdominal pain, bladder fullness no flank pain, chills without fever, there is no penile pain, no testicular pain, patient is not sexually active, he denies history of prostate problems. Urinary catheter inserted, however patient's potassium today is 5.5, despite being dialyzed. Symptoms are without chest pain. Initiated hyper kalemia protocol. On reevaluation potassium is now 5.5, glucose is 132, and patient has voided over 1000 mL of purulent-yellow urine in the Montano bag. CT shows IMPRESSION: 1. Persistent bilateral hydroureteronephrosis, likely secondary to a component of urinary outlet obstruction associated with prostatomegaly. Inflammatory narrowing or strictures of the bilateral ureterovesical junctions may also be present. 2. Other chronic incidental findings, as detailed above. . Plan Discharge patient up with a urinary catheter, I have reinforced he does need to follow-up with his urologist. Have given him leg bag instructions Montano cath catheter care, I gave patient a shot of Rocephin here in the emergency department and sent home with some Keflex, urine culture pending, I have also placed patient on Flomax as well with strict return precautions. Patient remained stable nontoxic-appearing, afebrile, ambulating steadily without assistance. Gone over ED findings with patient as well as plan for follow-up. Also discussed return precautions with patient, all questions and concerns addressed. Patient is stable to be discharged follow-up outpatient. Audio voice dictation device used, hence the chart might contain some dictation errors, mispronunciations, wrong spelling and wrong verbiage. Critical care attestation.: If time is entered above; I have spent that time in minutes in the direct care of this critically ill patient, excluding procedure time. ED Disposition Clinical Impression: Urinary retention, Hyperkalemia, ESRD (end stage renal disease) on dialysis, Hydroureteronephrosis, Pyelonephritis Disposition: 01 HOME / SELF CARE / HOMELESS Is pt being admited?: No Does the pt Need Aspirin: No Condition: Stable Instructions: Acute Urinary Retention, Male, M[place]-ge-E[place] Prescriptions: Tamsulosin [Flomax] 0.8 mg PO QDAY 30 Days #30 capsule cephALEXin [Keflex] 500 mg PO Q12HR 7 Days #14 cap Referrals: LANDY CARROLL MD [Staff Physician] - 3-5 Days
--- NOTE | 2022-02-02 00:10 | Cat Scan Report ---
CT ABDOMEN AND PELVIS WITHOUT CONTRAST INDICATION / CLINICAL INFORMATION: urinary retention. TECHNIQUE: Axial CT images were obtained through the abdomen and pelvis without IV contrast. All CT scans at this location are performed using CT dose reduction for ALARA by means of automated exposure control. COMPARISON: 09/10/2021 FINDINGS: LOWER CHEST: Right basilar subpleural scarring and rounded atelectasis. The nodule seen on the prior exam is now favored to represent subpleural scarring. Trace chronic pericardial effusion. LIVER: Stable small simple-appearing left hepatic lobe cysts. There is also a small cyst adjacent to the gallbladder fossa. GALLBLADDER/BILIARY: No significant abnormality or evidence for biliary obstruction. PANCREAS: No significant abnormality. SPLEEN: No significant abnormality. ADRENALS: No significant abnormality. KIDNEYS/URETERS: Moderate bilateral hydroureteronephrosis with ureteral dilation extending through th e ureterovesical junctions. Findings are likely secondary to a component of bladder outlet obstructio n and possible UVJ inflammatory narrowing or strictures without obstructing stone or mass identified. Moderate perinephric edema. Stable left renal cyst. Overall findings appear similar as compared to t he prior exam GI: No acute bowel inflammation, obstruction or evidence for ischemia. APPENDIX: No significant abnormality. PERITONEUM: No pneumoperitoneum, free peritoneal fluid or loculated fluid collection. LYMPH NODES: No significant adenopathy. AORTA / ARTERIES: Moderate atherosclerotic calcification without acute abnormality. URINARY BLADDER: Mild distention and diffuse bladder wall thickening that appears similar as compared to the prior exam. REPRODUCTIVE ORGANS: Stable severe prostatomegaly with median lobe hypertrophy that produces mass eff ect upon the bladder base. SKELETAL SYSTEM: No acute or destructive osseous process. ADDITIONAL FINDINGS: None. IMPRESSION: 1. Persistent bilateral hydroureteronephrosis, likely secondary to a component of urinary outlet obst ruction associated with prostatomegaly. Inflammatory narrowing or strictures of the bilateral uretero vesical junctions may also be present. 2. Other chronic incidental findings, as detailed above. Signer Name: Arnold Whitaker MD Signed: 02/02/2022 12:05 AM Workstation Name: [id number]
[2022-02-02] MEDS ORDERED: LIDOCAINE-MPF (1%) 10 MG/1 ML VIAL 5 ML INFILTRATI ONE (01:25)
[2022-02-02] MEDS ORDERED: cefTRIAXone/NS 1 GM/50 ML 1 GM/50 ML BAG IV ONE (01:30)
[2022-02-02 03:27] LABS: Bilirubin,Urine NEG (Negative); Blood,Urine SM (Negative); Color,Urine Yellow (Yellow); Urobilinogen,Urine < 2 mg/dL (<2.0)
[2022-02-02 03:33] LABS: WBC,Urine > 182.0 /HPF (0.0-6.0)
[2022-02-02 08:15] VITALS: BP 104/55
--- NOTE | 2022-02-02 10:57 | Electrocardiograph Report ---
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
== END 2022-02-02 08:14 | disposition home or self-care (01) ==
LOC: ED 13:41
DX: R33.9 Retention of urine, unspecified (principal); E87.5 Hyperkalemia; N13.30 Unspecified hydronephrosis; N12 Tubulo-interstitial nephritis, not specified as acute or chronic; I12.0 Hypertensive chronic kidney disease with stage 5 chronic kidney disease or end stage renal disease; N18.6 End stage renal disease; Z79.899 Other long term (current) drug therapy
CPT/HCPCS: 36415; 51702; 74176; 80053; 81001; 82947; 82962; 84132; 85025; 93005; 96365; 96375; 99284; J0610; J0696; J2270; J2405; J3490; Q9967; J1815